=== PATIENT | female | born 1940 | race Caucasian/White ===

== ENCOUNTER → 2017-07-29 16:21 | Outpatient (CLI) | payer MEDICARE, OTHER, SELFPAY ==
--- NOTE | 2017-07-29 16:25 | CT_ITS ---
STUDY: CT ABDOMEN AND PELVIS WITHOUT CONTRAST REASON FOR EXAM: Female, 76 years old. Fistula the sacrum. Drainage. RADIATION DOSAGE (If Supplied By Facility): CTDIvol = ( 6.04 ) mGy, DLP = ( 274.82 ) mGycm TECHNIQUE: Transaxial images were obtained from the dome of the diaphragm to the symphysis pubis without oral contrast, and without intravenous contrast. Sagittal and coronal images were reconstructed. Individualized dose optimization techniques were used for this CT. COMPARISON: 12/16/2012. FINDINGS: This examination is extremely limited without oral and IV contrast. In the pelvis, soft tissue thickening is seen of the dorsal soft tissues over the left sacrum with 2 or 3 tiny foci of air. A focal fluid collection or abscess is not clearly seen but cannot entirely be excluded because of the absence of IV contrast. Likewise there is no definite fistula or sinus seen down to the skeletal structures but fistula/sinus cannot be excluded. In the pelvis there is extensive amorphous indeterminate soft tissue density in the presacral space down to the pelvic floor, again difficult to evaluate because of absence of contrast. Cannot exclude neoplasm but in fact the amount and configuration of presacral soft tissue is relatively stable and could simply be fibrosis. Liver is grossly negative. Gallbladder has been removed. There is pancreatic atrophy. Spleen is grossly normal. Both kidneys show several probable cysts bilaterally, grossly similar to prior exam. No hydronephrosis. No definite renal stones. Evaluation of the GI tract is very limited without oral contrast. Distended stomach. No grossly distended loops of small bowel but cannot exclude segments of bowel wall thickening, and in the pelvis it is impossible to differentiate individual bowel loops and cannot exclude bowel wall thickening. There is a stable appearance of the right lower quadrant ostomy. No free fluid. Skeletal structures show diffuse demineralization. No acute abnormalities and no definite focal destructive lesions, but this does not exclude osteomyelitis. CT/Abdomen/Pelvis without Cont IMPRESSION: Very limited evaluation without IV and oral contrast especially in the pelvis where it is to differentiate soft tissue structures and cannot exclude neoplasm versus fibrosis in the presacral space. No gross abscess or fluid collection. There are tiny foci of air are seen in the soft tissues behind the sacrum but no gross fistula or sinus tract can be seen. Cannot exclude segments of bowel wall thickening. Electronically Signed: iGgi Pruitt MD at 17:13 EDT , Service support ,
[2017-07-29 16:50] LABS: CREATININE FINGERSTICK 2.6 mg/dL (0.55-1.02)
== END ==
PROVIDERS: Family Provider Internal Medicine; PCP Internal Medicine; Visit Provider Internal Medicine
DX: M86.9 Osteomyelitis, unspecified (principal)
CPT/HCPCS: 74176

== ENCOUNTER → 2017-10-22 14:22 | Outpatient (CLI) | payer MEDICARE, OTHER, SELFPAY ==
--- NOTE | 2017-10-22 14:25 | US_ITS ---
STUDY: ULTRASOUND OF THE FEMALE PELVIS - COMPLETE REASON FOR EXAM: Female, 77 years old. Vaginal discharge, postmenopausal TECHNIQUE: Transabdominal and Transvaginal TECHNICAL QUALITY: Adequate. COMPARISON: None. FINDINGS: The uterus is anteverted and is in a midline position. The uterus measures 4.3 x 1.7 x 4.1 cm. Normal uterine cervix. The endometrium measures 6 mm in thickness, and is fluid distended. There is no demonstrated endometrial mass. There is no demonstrated myometrial mass. I.U.D. - The patient does not have an I.U.D. The right ovary is visualized. The right ovary measures 1.7 x 1.2 x 1.7 cm. There is no right ovarian cyst or ovarian mass. There is no visualized right adnexal mass or complex lesion. There is normal arterial and normal venous vascularity. The left ovary is visualized. The left ovary measures 2.0 x 0.9 x 1.4 cm. There is no left ovarian cyst or ovarian mass. There is no visualized left adnexal mass or complex lesion. There is normal arterial and normal venous vascularity. There is no fluid in the cul-de-sac. US/Pelvic (Non ) IMPRESSION: 1. Endometrial complex thickening with fluid distention considered abnormal postmenopausal female. Endometrial hyperplasia and neoplasm should be considered. Electronically Signed: Tim Mark MD at 10:40 EDT , Service support ,
--- NOTE | 2017-10-22 15:08 | US_ITS ---
STUDY: ULTRASOUND OF THE FEMALE PELVIS - COMPLETE REASON FOR EXAM: Female, 77 years old. Vaginal discharge, postmenopausal TECHNIQUE: Transabdominal and Transvaginal TECHNICAL QUALITY: Adequate. COMPARISON: None. FINDINGS: The uterus is anteverted and is in a midline position. The uterus measures 4.3 x 1.7 x 4.1 cm. Normal uterine cervix. The endometrium measures 6 mm in thickness, and is fluid distended. There is no demonstrated endometrial mass. There is no demonstrated myometrial mass. I.U.D. - The patient does not have an I.U.D. The right ovary is visualized. The right ovary measures 1.7 x 1.2 x 1.7 cm. There is no right ovarian cyst or ovarian mass. There is no visualized right adnexal mass or complex lesion. There is normal arterial and normal venous vascularity. The left ovary is visualized. The left ovary measures 2.0 x 0.9 x 1.4 cm. There is no left ovarian cyst or ovarian mass. There is no visualized left adnexal mass or complex lesion. There is normal arterial and normal venous vascularity. There is no fluid in the cul-de-sac. US/Transvaginal Non- IMPRESSION: 1. Endometrial complex thickening with fluid distention considered abnormal postmenopausal female. Endometrial hyperplasia and neoplasm should be considered. Electronically Signed: Tim Mark MD at 10:40 EDT , Service support ,
== END ==
PROVIDERS: Family Provider Internal Medicine; PCP Internal Medicine; Visit Provider Internal Medicine
DX: N89.8 Other specified noninflammatory disorders of vagina (principal)
CPT/HCPCS: 76830; 76856

== ENCOUNTER → 2017-10-29 09:58 | Outpatient (CLI) | payer MEDICARE, OTHER, SELFPAY | PROVIDERS: Family Provider Internal Medicine; PCP Internal Medicine; Visit Provider Internal Medicine | DX: Z12.31 Encounter for screening mammogram for malignant neoplasm of breast (principal); Z13.820 Encounter for screening for osteoporosis; Z78.0 Asymptomatic menopausal state | CPT/HCPCS: 77063; 77067; 77080; 77086 ==

== ENCOUNTER 2017-12-26 11:06 | Day surgery (SDC) | payer MEDICARE, OTHER, SELFPAY ==
--- NOTE | 2017-12-25 10:22 | PCM.HP.OB ---
- Problem List (1) Endometrial thickening on ultrasound Status: Acute History Date of Admission: 12/26/17 History of this : This is a 77 year-old, G [], P [], at weeks gestational age. Allergies No Known Allergies Allergy (Verified 09/23/15 12:03) Home Medications: Home Medications Apixaban [Eliquis] 2.5 mg PO BID 09/23/15 Atenolol [Tenormin] 50 mg PO DAILY 09/23/15 Cyanocobalamin [Vitamin B12] 500 mcg IM QMONTH 09/23/15 Levothyroxine [Synthroid] 125 mcg PO DAILY@0600 #30 tablet 09/28/15 Cholecalciferol (Vitamin D3) [Vitamin D] 50 mcg PO DAILY 12/19/17 Multivitamin-Min/Iron/FA/Vit K [Multi For Her Softgel] 1 each PO DAILY 12/19/17 Smoking Status: Current every day smoker Alcohol: None History Past Pregnancies: Past Pregnancies Delivery Date Name GA/Weeks Outcome Route Weight Infant Gender Labor Length Anesthesia Delivery Location Provider FOB Review of Systems Constitutional: Denies: Chills, Fever, Weight Change HEENT: Denies: Difficulty Hearing, Difficulty Swallowing, Nasal bleeding, Nasal Congestion, Sore Throat Cardiovascular: Denies: Chest Pain, Palpitations Respiratory: Denies: Shortness of Breath, Wheezing Gastrointestinal: Denies: Constipation, Diarrhea, Nausea, Vomiting Genitourinary: Denies: Dysuria, Frequency, Hematuria, Incontinence, Urgency Gynecological: Reports: Vaginal discharge, Vaginal itching. Denies: Breast symptoms, Excessively long or heavy periods, Sexual concerns, Vaginal bleeding Musculoskeletal: Denies: Joint Pain, Muscle pain Skin: Denies: Lesions, Skin Changes Neurological: Denies: Focal weakness, Numbness Psychiatric: Denies: Anxiety, Depression Endocrine: Denies: Heat/ Cold Intolerance Hematologic/ Lymphatic: Denies: Easy Bleeding Physical Exam General: Alert, Oriented x3, No apparent distress HEENT: Atraumatic, Normocephalic. 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 Negative for: Vulvar lesions Assessment/Plan All Active Problems Endometrial thickening on ultrasound (Acute) Weight loss (Acute) Nausea & vomiting (Acute) AKILA (acute kidney injury) (Acute) Dehydration (Acute) History of osteomyelitis (Resolved) Osteomyelitis (Resolved) This is a 77 year-old, post-menopausal. 1. Thickened endometrium of uterus D and C is planned. The preop preparation, the intraop procedures and the postop recovery reviewed. The risks of bleeding, infection and other organ damage including bladder, bowel and uterine perforation reviewed, accepted and consented. 2. DVT medical clearance and timeline of discontinuation of Eliquis 3. 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
--- NOTE | 2017-12-25 10:26 | HP.PCM_ITS ---
- Problem List (1) Endometrial thickening on ultrasound Status: Acute History Date of Admission: 12/26/17 History of this : This is a 77 year-old, G [], P [], at weeks gestational age. Allergies No Known Allergies Allergy (Verified 09/23/15 12:03) Home Medications: Home Medications Apixaban [Eliquis] 2.5 mg PO BID 09/23/15 Atenolol [Tenormin] 50 mg PO DAILY 09/23/15 Cyanocobalamin [Vitamin B12] 500 mcg IM QMONTH 09/23/15 Levothyroxine [Synthroid] 125 mcg PO DAILY@0600 #30 tablet 09/28/15 Cholecalciferol (Vitamin D3) [Vitamin D] 50 mcg PO DAILY 12/19/17 Multivitamin-Min/Iron/FA/Vit K [Multi For Her Softgel] 1 each PO DAILY 12/19/17 Smoking Status: Current every day smoker Alcohol: None History Past Pregnancies: Past Pregnancies Delivery Date Name GA/Weeks Outcome Route Weight Infant Gender Labor Length Anesthesia Delivery Location Provider FOB Review of Systems Constitutional: Denies: Chills, Fever, Weight Change HEENT: Denies: Difficulty Hearing, Difficulty Swallowing, Nasal bleeding, Nasal Congestion, Sore Throat Cardiovascular: Denies: Chest Pain, Palpitations Respiratory: Denies: Shortness of Breath, Wheezing Gastrointestinal: Denies: Constipation, Diarrhea, Nausea, Vomiting Genitourinary: Denies: Dysuria, Frequency, Hematuria, Incontinence, Urgency Gynecological: Reports: Vaginal discharge, Vaginal itching. Denies: Breast symptoms, Excessively long or heavy periods, Sexual concerns, Vaginal bleeding Musculoskeletal: Denies: Joint Pain, Muscle pain Skin: Denies: Lesions, Skin Changes Neurological: Denies: Focal weakness, Numbness Psychiatric: Denies: Anxiety, Depression Endocrine: Denies: Heat/ Cold Intolerance Hematologic/ Lymphatic: Denies: Easy Bleeding Physical Exam General: Alert, Oriented x3, No apparent distress HEENT: Atraumatic, Normocephalic. 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 Negative for: Vulvar lesions Assessment/Plan All Active Problems Endometrial thickening on ultrasound (Acute) Weight loss (Acute) Nausea & vomiting (Acute) AKILA (acute kidney injury) (Acute) Dehydration (Acute) History of osteomyelitis (Resolved) Osteomyelitis (Resolved) This is a 77 year-old, post-menopausal. 1. Thickened endometrium of uterus D and C is planned. The preop preparation, the intraop procedures and the postop recovery reviewed. The risks of bleeding, infection and other organ dam age including bladder, bowel and uterine perforation reviewed, accepted and consented. 2. DVT medical clearance and timeline of discontinuation of Eliquis 3. 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
[2017-12-26] VITALS (7 sets, daily range): BP systolic 123–166; BP diastolic 57–94; PULSE 56–60; RESP 14–16; TEMP 36.2–37.2; O2SAT 96–100; BMI 18.3
--- NOTE | 2017-12-26 | EMB_PTH ---
PATIENT: SHARMAINE FARLEY [place] [facility] [id number] AGE/SX: 77/F ROOM: RE12/26/[address]: Dr. Miriam Elaine MD : 1940 BED: DIS: 12/26/2017 SPEC #: [id number] RECD: 12/26/17 15:06 STATUS: SHEA MATIAS #: [id number] NEIL: 12/26/17 00:[address]: Miriam Elaine DEPT: SURGICAL PATHOLOGY RECD BY: Lino Rodriguez ENTERED: 12/26/17 15:07 SP TYPE: ENDOM BX/C JUAN DR: Dr. Viviana Murray MD Tissues: Endometrium, NOS Procedures: Surgery Specimen Level IV HEADER OPERATION: Hysteroscopy, dilation and curettage PRE-OP DIAGNOSIS: Thickened endometrium, postmenopausal bleeding TISSUE SUBMITTED: Endometrial curettings MICROSCOPIC DIAGNOSIS Endometrial curettings: Rare minute strips of benign endometrial epithelium. Scant fragments of benign ecto- and endocervical epithelium and mucous. See comment. SJ:paulina 12/27/17 COMMENT The specimen predominantly consists of mucoid tissue. Correlation with clinical findings and appropriate follow up are necessary. MICROSCOPIC DESCRIPTION Slides are reviewed. GROSS DESCRIPTION Received in fixative is one container labeled with the patient's name and designated endometrial curettings. The specimen consists of multiple irregular fragments of arroyo-pink mucoid tissue that in aggregate measure 2.5 x 2.5 x 0.2 cm. The entire specimen is submitted in one cassette. / KELLIE:paulina 12/26/17 TC:4 CPT: 52430
[2017-12-26] MEDS: Heparin Injection (Vial) 5,000 UNIT/ML VIAL 5000 UNIT SC (11:54)
[2017-12-26 12:10] LABS: International Normalized Ratio 1.1; Prothrombin Time (Protime)PT. 13.8 SECONDS (11.7-14.9)
[2017-12-26 12:11] LABS: Hematocrit 38.8 % (37-47); Hemoglobin 12.7 g/dl (12.0-15.0); Mean Corp Hgb Conc 32.7 g/gl (32-36); Mean Corpuscular Hgb 28.3 pg (27.0-32.0); Mean Corpuscular Volume 86.4 fL (81-99); Partial Thromboplast Time 28.6 Seconds (24.1-36.2); Platelet Count 320 K/mm3 (150-450); RBC Distribution Width CV 17.5 % (11.6-14.6); RBC Distribution Width SD 55.4 fl (35.1-43.9); Red Blood Count 4.49 M/mm3 (4.2-5.4); White Blood Count 7.3 K/mm3 (4.4-11.0)
[2017-12-26 12:28] LABS: Scan Indicated on CBC? Y/N NO
--- NOTE | 2017-12-26 12:56 | PCM.OPRPT ---
Problem List (1) Endometrial thickening on ultrasound Status: Acute Report of Operation Date of Procedure: 12/26/17 Pre-Operative Diagnosis: Postmenopausal bleeding and thickened endometrium Post-Operative Diagnosis: Same Surgery/Procedure Performed:: D and C, hysteroscopy Description of Surgical Findings:: Thin external genitalia noted. Uterus was retroflexed and sounded to approximately centimeter at 7 cm. Cervical eyes easily dilated to accommodate a 5 mm hysteroscope. Bilateral adnexa fully mobile and no masses. Type of Anesthesia:: Local, MAC Anesthesiologist: Chase Rivera Special Medications: 1% lidocaine, 10 cc locally to the cervix Specimen's removed: Endometrium Drains: None Estimated Blood Loss (mL): Minimal Fluids Replaced: Lactated Ringer Grafts/Implants Used: None - Complications None - Admit VTE Documentation VTE Present on Admission: No - Discontinued 1 week ago VTE Mechan Device Prophylaxis: SCD's VTE Pharm Prophylaxis ordered?: Yes
--- NOTE | 2017-12-26 12:59 | OP.PCM_ITS ---
Problem List (1) Endometrial thickening on ultrasound Status: Acute Report of Operation Date of Procedure: 12/26/17 Pre-Operative Diagnosis: Postmenopausal bleeding and thickened endometrium Post-Operative Diagnosis: Same Surgery/Procedure Performed:: D and C, hysteroscopy Description of Surgical Findings:: Thin external genitalia noted. Uterus was retroflexed and sounded to approximat leila centimeter at 7 cm. Cervical eyes easily dilated to accommodate a 5 mm hysteroscope. Bilateral adnexa fully mobile and no masses. Type of Anesthesia:: Local, MAC Anesthesiologist: Chase Rivera Special Medications: 1% lidocaine, 10 cc locally to the cervix Specimen's removed: Endometrium Drains: None Estimated Blood Loss (mL): Minimal Fluids Replaced: Lactated Ringer Grafts/Implants Used: None - Complications None - Admit VTE Documentation VTE Present on Admission: No - Discontinued 1 week ago VTE Mechan Device Prophylaxis: SCD's VTE Pharm Prophylaxis ordered?: Yes
--- NOTE | 2017-12-26 13:01 | OP.PCM_ITS ---
Problem List (1) Endometrial thickening on ultrasound Status: Acute Report of Operation Date of Procedure: 12/26/17 Pre-Operative Diagnosis: Postmenopausal bleeding and thickened endometrium Post-Operative Diagnosis: Same Surgery/Procedure Performed:: D and C, hysteroscopy Description of Surgical Findings:: Thin external genitalia noted. Uterus was retroflexed and sounded to approximat leila centimeter at 7 cm. Cervical eyes easily dilated to accommodate a 5 mm hysteroscope. Bilateral adnexa fully mobile and no masses. Type of Anesthesia:: Local, MAC Anesthesiologist: Chase Rivera Special Medications: 1% lidocaine, 10 cc locally to the cervix Specimen's removed: Endometrium Drains: None Estimated Blood Loss (mL): Minimal Fluids Replaced: Lactated Ringer Description of Procedure: Patient presented to the operating suite in the n.p.o. status since midnight the night before surgery. Patient was placed on the operating table and underwent a MAC anesthetic after appropriate monitors had been placed. Once back anesthetic was noted to be adequate she is placed in the dorsal lithotomy position via the Mak stirrups. She was prepped and draped in the normal sterile fashion. Weighted speculum to the vagina. The cervix was grasped with a single-tooth tenaculum at the anterior lip and the uterus was sounded to 7 cm in a retroflexed position. The 1% lidocaine was placed to the 4 quadrants of the cervix for a total of 10 cc infusion. The patient tolerated well. The cervical eyes was easily dilated to accommodate a 5 mm hysteroscope. The hysteroscope was placed into the endometrial cavity with notation of flimsy tissue throughout. Removal of the hysteroscope was replaced by sharp curettage of the entire endometrial cavity and collection of that tissue to send for pathological evaluation. The hysteroscope was replaced into the endometrial cavity after curettings and removal of all prior tissue was noted. All instruments were removed from the vagina. Investigation of the vagina revealed that the tissue is very thin and it appears that it is most then near the outer introital area at the posterior region were likely prior incision or may be the prior fistula occurred. This will be transmitted to the patient as well as to the patient's general surgeon a rectal surgeon who had asked for a update up following the surgery. Grafts/Implants Used: None - Complications None - Admit VTE Documentation VTE Present on Admission: No - Discontinued 1 week ago VTE Mechan Device Prophylaxis: SCD's VTE Pharm Prophylaxis ordered?: Yes
--- NOTE | 2017-12-26 13:05 | DCINST_ITS ---
Discharge Diet: No Restrictions, - - increase water intake to 100 ounces daily x 72 hours after surgery Discharge Activity: Return to Normal Activity, May Shower May shower in (days): 0 - TODAY May resume sexual activity in: 2 weeks Weight Bearing Status: Full weight bearing Lifting Restrictions: 10 pounds for one week Additional Activity Instructions:: ambulate often the week following surgery Call your doctor if your incision/area has: Sudden Increased Bleeding Call your doctor if you observe: Fever of 101 or Higher, Numbness or Tingling, Inability to urinate, Inability to have a bowel movement, Using more than one pad per hour Cleanse incision/area with: Soap & Water Additional Instructions: Use Tylenol for pain or cramping. Allergies/Adverse Reactions: Allergies No Known Allergies Allergy (Verified 09/23/15 12:03) Medications to take at Discharge RX: Apixaban [Eliquis] 2.5 mg PO BID 09/23/15 RX: Atenolol [Tenormin] 50 mg PO DAILY 09/23/15 RX: Cyanocobalamin [Vitamin B12] 500 mcg IM QMONTH 09/23/15 RX: Levothyroxine [Synthroid] 125 mcg PO DAILY@0600 #30 tablet 09/28/15 Cholecalciferol (Vitamin D3) [Vitamin D] 50 mcg PO DAILY 12/19/17 Multivitamin-Min/Iron/FA/Vit K [Multi For Her Softgel] 1 each PO DAILY 12/19/17 Primary Care Physician: Viviana Murray MD [Primary Care Provider] - Test Results: Test results from this visit will be discussed in further detail at your follow- up appointment, if applicable. Please Follow Up With: Miriam Elaine MD When: 1-2 weeks postop Please Follow Up With: Dr. Cooper When: 1 week
== END 2017-12-26 14:04 | disposition home or self-care (01) ==
LOC: SDC 11:09 → AC 11:10
PROVIDERS: Family Provider Internal Medicine; PCP Internal Medicine; Visit Provider Obstetrics & Gynecology
PROC: 0UDB8ZZ Extraction of Endometrium, Via Natural or Artificial Opening Endoscopic (ICD-10-PCS; CPT 58558; principal; 2017-12-26 12:20)
DX: N95.0 Postmenopausal bleeding (principal); N17.9 Acute kidney failure, unspecified; E86.0 Dehydration; I10 Essential (primary) hypertension; E07.9 Disorder of thyroid, unspecified; F17.200 Nicotine dependence, unspecified, uncomplicated; Z79.01 Long term (current) use of anticoagulants; Z79.899 Other long term (current) drug therapy; Z78.0 Asymptomatic menopausal state; Z86.2 Personal history of diseases of the blood and blood-forming organs and certain disorders involving the immune mechanism; Z86.718 Personal history of other venous thrombosis and embolism
CPT/HCPCS: 58558; 85027; 85610; 85730; 86850; 86900; 88305; J7120

== ENCOUNTER → 2018-02-10 14:03 | Outpatient (CLI) | payer MEDICARE, OTHER, SELFPAY ==
--- NOTE | 2018-02-10 14:13 | CT_ITS ---
STUDY: CT ABDOMEN AND PELVIS WITHOUT CONTRAST REASON FOR EXAM: Female, 77 years old. History Crohn's disease, abnormal vaginal drainage since surgery and may history of colostomy appendectomy cholecystectomy colon rectal surgery and hypertension. RADIATION DOSAGE (If Supplied By Facility): CTDIvol = ( 5.91 ) mGy, DLP = ( 239.69 ) mGycm TECHNIQUE: Transaxial images were obtained from the dome of the diaphragm to the symphysis pubis without oral contrast, and without intravenous contrast. Sagittal and coronal images were reconstructed. Individualized dose optimization techniques were used for this CT. COMPARISON: July 29, 2017 CT scan abdomen and pelvis. FINDINGS: There is a small irregular appearing nodule within the left lower lobe measuring 3.8 x 6.8 mm. image #7 appears nodular both on the transverse and coronal images. There is a calcification in the left lower lobe compatible granulomatous disease. This area was out of the field of view on the prior study. There is mild cardiac enlargement or coronary calcifications. There is a coarse appearance of the liver. There are surgical clips in the gallbladder fossa consistent with a prior cholecystectomy. Normal spleen. There is diffuse atrophy of the pancreas. Normal bilateral adrenal glands. There is an area of posterior right renal parenchymal thinning within the right kidney likely compatible with underlying chronic renal disease and/or prior infection. There is a exophytic cyst measuring 1.3 x 1.7 cm stable since prior study. There is no evidence of hydronephrosis. There is mild left renal atrophy. There are left side exophytic cyst stable since prior study measuring 1.2 and 1.2 cm. There is also a focus of cysts measuring 1.1 and 1.5 cm. There is a lower pole left renal cyst measuring 1.8 cm all stable since prior study. There is no evidence of hydronephrosis. Normal visualized stomach. There are mildly distended loops of small bowel. There is mild wall thickening. There is an anastomosis within the pelvis. There is a contrasted appearance of the cecum. This leads to a well contrasted colostomy. Minimally distended small bowel loops partially contrasted are seen in the pelvis. There is a mildly thick-walled appearance of the inferior aspect of the proximal aspect of the cecum at the ileocecal junction which may represent interface between contrasted and noncontrasted bowel. There is non-visualization of the appendix. There is diffuse atherosclerotic calcification of the abdominal aorta,. The proximal aorta measures 2.6 x 2.7 cm. Normal inferior vena cava. There are multiple subcentimeter retroperitoneal lymph nodes. There are few small subcentimeter mesenteric lymph nodes. There is visualized presacral stranding. There is some cortical irregularity demonstrated at the anterior aspect of S1 and S2 similar to the prior study allowing for cortical variation. The bladder is mildly distended. There is a visualized small amount of gas within the vagina just below the cervix. At the time of this study contrast barely reaches the distal small bowel. There is close proximity of the sigmoid stump. The tract is not definitively seen between the atrophied uterus and the rectum. There is a right lower colostomy. The soft tissues of the gluteal region are within without significant inflammatory change. There is anterolisthesis of L4-L5. There is a broad disc bulge with moderate neural foraminal narrowing moderate central stenosis. There is a broad disc bulge L5-S1 with minimal neural foramina narrowing is significant central stenosis. There is focal irregularity of the right side sacrum with a somewhat sclerotic border which is similar to the prior study. CT/Abdomen/Pelvis without Cont IMPRESSION: The time of this study the oral contrast is limited and reaches only the cecum which exits quickly from the colostomy. There is no evidence of fluid in the visualized uterine fundus. There is a small amount of gas which is present within the vagina at the level of the cervix which is nonspecific. Potentially a pelvic ultrasound would be helpful for further evaluation if appropriate. There is persistent presacral stranding which is concerning for either inflammatory change and/or neoplasm. Recommend correlation with radiation history. There is a persistent irregular appearance of the anterior cortex at the level of S1-S2 which potentially represent a focus of stable or chronic cortical irregularity. Potentially chronic osteomyelitis could have this appearance. Recommend consideration for follow-up MRI of the pelvis. This may be helpful to clarify the soft tissue density. Postoperative change in the rectosigmoid junction without evidence of significant surrounding inflammatory change. There is a mildly distended appearance of the small bowel and the left midline abdomen which is stable since prior study compatible with mild ileus. Stable bilateral kidneys. Status post cholecystectomy. Small nodule in the left lower lobe. Recommend further evaluation with CT scan of the chest for clarification. This may represent a postinflammatory nodule however neoplasm should be excluded. Electronically Signed: Marixa Walsh MD at 16:35 EST Tel , Service support ,
--- OUTSIDE RECORDS SUMMARY | 2018-03-25 11:19 | XMS RPT_ITS | Continuity of Care Document ---
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 hysteroscope was replaced into the endometrial cavity after curettings and removal o f all prior tissue was noted. All instruments were removed from the vagina. Investigation of the vagina revealed that the tissue is very thin and it appears that it is most then near the outer introital area at the posterior region were likely prior incision or may be the prior fistula occurred. This will be transmitted to the patient as well as to the patient's general surgeon a rectal surgeon who cano d asked for a update up following the surgery. Grafts/Implants Used: None - Complications None - Admit VTE Documentation VTE Present on Admission: No - Discontinued 1 week ago VTE Mechan Device Proph ylaxis: SCD's VTE Pharm Prophylaxis ordered?: Yes 12/26/17 1301 <Electronically signed by Miriam Dahl MD> Date Miriam Dahl MD CC: Miriam Dahl MD; Viviana Murray MD Signed 26-Dec-2017 Operative Report Result: Comments: See Note; NOTES: [facility] Medical Records Department [address] [place] [address] Operative Report 12/26/17 1256 MR#: [id number] Acct: [id number] Name: SJ FARLEY Arleth Rep #: [id number] : 1940 77 From: Miriam Dahl MD PCP: Viviana Murray MD Status: REG [facility] Location: [place] [address] Problem List (1) Endometrial thickening on ultrasound Status: Acute Report of Operation Date of Procedure: 12/26/17 Pre-Operative Diagnosis: Postmenopausal bleeding and thickened endometrium Post-Operative Diagnosis: Same Surgery/Procedure Performed:: D and C, hysteroscopy Descr iption of Surgical Findings:: Thin external genitalia noted. Uterus was retroflexed and sounded to approximately centimeter at 7 cm. Cervical eyes easily dilated to accommodate a 5 mm hysteroscope. Raz ateral adnexa fully mobile and no masses. Type of Anesthesia:: Local, MAC Anesthesiologist: Chase Rivera Special Medications: 1% lidocaine, 10 cc locally to the cervix Specimen's removed: Endometrium Drains: None Estimated Blood Loss (mL): Minimal Fluids Replaced: Lactated Ringer Grafts/Implants Used: None - Complications None - Admit VTE Documentation VTE Present on Admission: No - Discontinued 1 week ago VTE Mechan Device Prophylaxis: SCD's VTE Pharm Prophylaxis ordered?: Yes 12/26/17 1259 <Electronically signed by Miriam Dahl MD> Date Miriam Dahl MD CC: Miriam Dahl MD; Viviana Murray MD Signed 25-Dec-2017 History and Physical Exam Result: Comments: See Note; NOTES: [facility] Medical Records Department [address] [place] [address] History and Physical 12/25/17 1022 MR#: [id number] Acct: [id number] Name: Kiran FARLEY Rep #: [id number] : 1940 77 From: Miriam Dahl MD PCP: Viviana Murray MD Status: PRE [facility] Location: [facility] Problem List (1) Endometrial thickening on ultrasound Status: Acute History D ate of Admission: 12/26/17 History of this : This is a 77 year-old, G [], P [], at weeks gestational age. Allergies No Known Allergies Allergy (Verified 09/23/15 12:03) Home Medications: H ome Medications Apixaban [Eliquis] 2.5 mg PO BID 09/23/15 Atenolol [Tenormin] 50 mg PO DAILY 09/23/15 Cyanocobalamin [Vitamin B12] 500 mcg IM QMONTH 09/23/15 Levothyroxine [Synthroid] 125 mcg PO DAILY@ 0600 #30 tablet 09/28/15 Cholecalciferol (Vitamin D3) [Vitamin D] 50 mcg PO DAILY 12/19/17 Multivitamin-Min/Iron/FA/Vit K [Multi For Her Softgel] 1 each PO DAILY 12/19/17 Smoking Status: Current every day smoker Alcohol: None History Past Pregnancies: Past Pregnancies Delivery Name GA/Weeks Outcome Route WeiInfant GeLabor LenAnesthesiDelivery Provider FOB Date ght nder gth a Locati on Review of Systems Constitutional: Denies: Chills, Fever, Weight Change HEENT: Denies: Difficulty Hearing, Difficulty Swallowing, Nasal bleeding, Nasal Congestion, Sore Throat Cardiovascular: Denie s: Chest Pain, Palpitations Respiratory: Denies: Shortness of Breath, Wheezing Gastrointestinal: Denies: Constipation, Diarrhea, Nausea, Vomiting Genitourinary: Denies: Dysuria, Frequency, Hematuria, In continence, Urgency Gynecological: Reports: Vaginal discharge, Vaginal itching. Denies: Breast symptoms, Excessively long or heavy periods, Sexual concerns, Vaginal bleeding Musculoskeletal: Denies: Samantha nt Pain, Muscle pain Skin: Denies: Lesions, Skin Changes Neurological: Denies: Focal weakness, Numbness Psychiatric: Denies: Anxiety, Depression Endocrine: Denies: Heat/ Cold Intolerance Hematologic/ Ly mphatic: Denies: Easy Bleeding Physical Exam General: Alert, Oriented x3, No apparent distress HEENT: Atraumatic, Normocephalic. Negative for: Thyromegaly, Lymphadenopathy Lungs: Normal air movement Ab domen: Bowel Sounds Present Extremities:: No edema - atrophic and thin, skinned , No tenderness/swelling Neurological: Neuro grossly intact [employer]: Normal external genitalia. Negative for: Vulvar lesions Assessment/Plan All Active Problems Endometrial thickening on ultrasound (Acute) Weight loss (Acute) Nausea AND vomiting (Acute) AKILA (acute kidney injury) (Acute) Dehydration (Acute) History of osteomy elitis (Resolved) Osteomyelitis (Resolved) This is a 77 year-old, post-menopausal. 1. Thickened endometrium of uterus D and C is planned. The preop preparation, the intraop procedures and the postop recovery reviewed. The risks of bleeding, infection and other organ damage including bladder, bowel and uterine perforation reviewed, accepted and consented. 2. DVT medical clearance and timeline of di scontinuation of Eliquis 3. Tobacco use high risk and anti-coagulant following 2 DVT in history 12/25/17 1030 <Electronically signed by Mriiam Dahl MD> Date [facility] Signature: Date (if applicable) CC: Miriam Dahl MD; Viviana Murray MD Signed 31-Oct-2017 Vert Fx Assess/Lat Bone Den Result: Comments: See Note; NOTES: [facility] Imaging Services [address] [place] [address] Vert Fx Assess/Lat Bone Den MR#: [id number] Acct: [id number] Name: SHARMAINE FARLEY Rep #: [id number] : 1940 F 77 From: Jose Chan MD PCP: Viviana Murray MD Status: REG CLI Study: Vert Fx Assess/Lat Bone Den Date of Exam: 10/31/17 Exam# [id number] Ordering Dr: Viviana Murray MD STUDY: DUAL ENERGY X-RAY ABSORPTIOMETRY / DXA REASON FOR EXAM: Female, 77 years old. Early menopause. Loss of height. TECHNIQUE: Bone Mineral Density (BMD) measurements of lumbar spine and thoracic s pine were obtained. COMPARISON: Comparison is made with prior examination dated November 04, 2015. FINDINGS: There is minimal loss of height of the superior endplate of the T8 and T10 vertebrae. 0008 BD/Vert Fx Assess/Lat Bone Den IMPRESSION: Minimal loss of height of the superior endplate of the T8 and T10 verteb jasmin. Reference Information: The T-score is the number of standard deviations above or below the standard which is normal for young adults at their peak bone mineral density. The World Health Organization (WHO) interprets the T-scores as follows: Above -1 Normal bone density Between -1 and -2.5 Osteopenia Equal to / or below -2.5 Osteoporosis As a practical clini alesha guideline, osteopenia may be graded as follows: Mild -1 through -1.5 Moderate -1.6 through -2.0 Severe -2.1 through -2.4 The Z-score is the number of standard deviations above or below age-matched controls. A Z-score of less than -1.5 would be considered abnormal. References: 1. NIH Osteoporosis and Related Bone Diseases http://www.osteo.org 2. International Society for Clinical Densitometry htt p://www.iscd.org 3. National Osteoporosis Foundation http://www.nof.org Electronically Signed: Jose Chan MD at 12:22 EDT Tel [phone], Service support , Fax CC: Viviana Murray MD Nicker And Breaker: Signed 29-Oct-2017 Dexa Bone Density Study Result: Comments: See Note; NOTES: [facility] Imaging Services [address] [place] [address] Dexa Bone Density Study MR#: [id number] Acct: [id number] Name: SHARMAINE FRALEY Rep #: [id number] : 1940 F 77 From: Jose Chan MD PCP: Viviana Murray MD Status: REG CLI Study: Dexa Bone Density Study Date of Exam: 10/29/17 Exam# [id number] Ordering Dr: Viviana Murray MD STUDY: DUAL ENERGY X-RAY ABSORPTIOMETRY / DXA REASON FOR EXAM: Female, 77 years old. Early menopause. Loss of height. TECHNIQUE: Bone Mineral Density (BMD) measurements of lumbar spine and bilateral hips wer e obtained. COMPARISON: None. FINDINGS: Lumbar Spine (L1-L4): g/cm2 (0.643) / T-score (-4.3) / Z-score (-2.5) Findings are suggestive of osteoporosis with a high f racture risk. Left Femur Total: g/cm2 (0.602) / T-score (-3.2) / Z-score (-1.3) Left Femoral Neck: g/cm2 (0.647) / T-score (-2.8) / Z-score (-0.7) Right Femur Total: g/cm2 (0.525) / T-score (-3.8) / Z- score (-1.9) Right Femoral Neck: g/cm2 (0.579) / T-score (-3.3) / Z-score (-1.2) BD/Dexa Bone Density Study IMPRESSION: The patient is considere d osteoporotic as outlined below according to World Diego Organization (WHO) criteria with a high fracture risk. Reference Information: The T-score is the number of standard deviations above or below the standard which is normal for young adults at their peak bone mineral density. The World Health Organization (WHO) interprets the T-scores as follows: Above -1 No rmal bone density Between -1 and -2.5 Osteopenia Equal to / or below -2.5 Osteoporosis As a practical clinical guideline, osteopenia may be graded as follows: Mild - 1 through -1.5 Moderate -1.6 through -2.0 Severe -2.1 through -2.4 The Z-score is the number of standard deviations above or below age-matched controls. A Z-score of less than -1.5 would be considered abnormal. References: 1. NIH Osteop orosis and Related Bone Diseases http://www.osteo.org 2. International Society for Clinical Densitometry http://www.iscd.org 3. National Osteoporosis Foundation http://www.nof.org Electronically Signed : Jose Chan MD at 10:44 EDT Tel [phone], Service support , CC: Viviana Murray MD Nicker And Breaker: Signed 29-Oct-2017 SCREENING MAMM (CAD), BILAT Result: Comments: See Note; NOTES: [facility] Imaging Services [address] [place] [address] SCREENING MAMM (CAD), BILAT MR#: [id number] Acct: [id number] Name: SHARMAINE FARLEY Rep #: [id number] : 1940 F 77 From: Jose Chan MD PCP: Viviana Murray MD Status: REG CLI Study: SCREENING MAMM (CAD), BILAT Date of Exam: 10/29/17 Exam# [id number] Ordering Dr: Viviana Murray MD MAMMOGRAPHY - BILATERAL SCREENING REASON FOR EXAM: Female, 77 years old. Routine annual screening examination. PERTINENT HISTORY: Non-contributory. TECHNIQUE: Digital bilateral breast codi (3D mammo graphic acquisition) in the CC and MLO projections. 2-D mediolateral oblique (MLO) and craniocaudad (CC) views of both breasts were obtained. CAD: Full Field Digital Mammography with Computer Added Dete ction was performed. COMPARISON: Comparison is made with prior outside examination dated January 07, 2014. FINDINGS: Breast Composition: The breasts are heterogeneo usly dense, which may obscure small masses. There are no dominant masses or suspicious calcifications. No other significant abnormalities are identified. There has been no significant change since the prior study. BI/SCREENING MAMM (CAD), BILAT IMPRESSION: Stable bilateral screening mammogram. Yearly follow-up mammogram recommended. (A) ASSESSMENT CATEGORY: BIRADS Category 1: Negative. A letter regarding these results will be sent to the patient by the facility within 30 days. Approximately 10% of breas t cancers are not detected by mammography. A normal mammogram should not delay biopsy of a clinically suspicious abnormality. [id number] Electronically Signed: Jose Chan MD at 8:00 ED T Tel [phone], Service support , CC: Viviana Murray MD Nicker And Breaker: Signed 22-Oct-2017 Transvaginal Non- Result: Comments: See Note; NOTES: [facility] Imaging Services [address] [place] [address] Transvaginal Non- MR#: [id number] Acct: [id number] Name: SHARMAINE FARLEY Rep #: : 1940 F 77 From: Tim Mark MD PCP: Viviana Murray MD Status: REG CLI Study: Transvaginal Non- Date of Exam: 10/22/17 Exam# [id number] Ordering Dr: Viviana Murray MD STUDY: ULTRASOUND OF THE FEMALE PELVIS - COMPLETE REASON FOR EXAM: Female, 77 years old. Vaginal discharge, postmenopausal TECHNIQUE: Transabdominal and Transvaginal TECHNICAL QUALITY: Adequate. COMPARISON : None. FINDINGS: The uterus is anteverted and is in a midline position. The uterus measures 4.3 x 1.7 x 4.1 cm. Normal uterine cervix. The endometrium measures 6 mm in thickness, and is fluid distended. There is no demonstrated endometrial mass. There is no demonstrated myometrial mass. I.U.D. - The patient does not have an I.U.D. The right ovary is visualized. T he right ovary measures 1.7 x 1.2 x 1.7 cm. There is no right ovarian cyst or ovarian mass. There is no visualized right adnexal mass or complex lesion. There is normal arterial and normal venous vascul arity. The left ovary is visualized. The left ovary measures 2.0 x 0.9 x 1.4 cm. There is no left ovarian cyst or ovarian mass. There is no visualized left adnexal mass or complex lesion. There is norm al arterial and normal venous vascularity. There is no fluid in the cul-de-sac. US/Transvaginal Non- IMPRESSION: 1. Endometrial complex thickening with fluid distention considered abnormal postmenopausal female. Endometrial hyperplasia and neoplasm should be considered. Electronically Signed: Tim Mark MD at 10:40 EDT T el [phone], Service support , CC: Viviana Murray MD Nicker And Breaker: Signed 22-Oct-2017 Pelvic (Non ) Result: Comments: See Note; NOTES: [facility] Imaging Services [address] [place] [address] Pelvic (Non ) MR#: [id number] Acct: [id number] Name: SHARMAINE FARLEY Rep #: [id number] : 1940 F 77 From: Tim Mark MD PCP: Viviana Murray MD Status: REG CLI Study: Pelvic (Non ) Date of Exam: 10/22/17 Exam# [id number] Ordering Dr: Viviana Murray MD STUDY: ULTRASOU ND OF THE FEMALE PELVIS - COMPLETE REASON FOR EXAM: Female, 77 years old. Vaginal discharge, postmenopausal TECHNIQUE: Transabdominal and Transvaginal TECHNICAL QUALITY: Adequate. COMPARISON: None. FINDINGS: The uterus is anteverted and is in a midline position. The uterus measures 4.3 x 1.7 x 4.1 cm. Normal uterine cervix. The endometrium measures 6 mm in thic kness, and is fluid distended. There is no demonstrated endometrial mass. There is no demonstrated myometrial mass. I.U.D. - The patient does not have an I.U.D. The right ovary is visualized. The right ovary measures 1.7 x 1.2 x 1.7 cm. There is no right ovarian cyst or ovarian mass. There is no visualized right adnexal mass or complex lesion. There is normal arterial and normal venous vascularity. The left ovary is visualized. The left ovary measures 2.0 x 0.9 x 1.4 cm. There is no left ovarian cyst or ovarian mass. There is no visualized left adnexal mass or complex lesion. There is normal arter ial and normal venous vascularity. There is no fluid in the cul-de-sac. US/Pelvic (Non ) IMPRESSION: 1. Endometrial complex thickening with fluid distention considered abnormal postmenopausal female. Endometrial hyperplasia and neoplasm should be considered. Electronically Signed: Tim Mark MD at 10:40 EDT Tel , Service support , CC: Viviana Murray MD Nicker And Breaker: Signed 29-Jul-2017 Abdomen/Pelvis without Cont Result: Comments: See Note; NOTES: [facility] Imaging Services [facility] [place] [address] Abdomen/Pelvis without Cont MR#: [id number] Acct: [id number] Name: SHARMAINE FARLEY Rep #: [id number] : 1940 F 76 From: Gigi Pruitt MD PCP: Viviana Murray MD Status: REG CLI Study: Abdomen/Pelvis without Cont Date of Exam: 07/29/17 Exam# [id number] Ordering Dr: Viviana Murray MD S TUDY: CT ABDOMEN AND PELVIS WITHOUT CONTRAST REASON FOR EXAM: Female, 76 years old. Fistula the sacrum. Drainage. RADIATION DOSAGE (If Supplied By Facility): CTDIvol = ( 6.04 ) mGy, DLP = ( 274.82 ) m Gycm TECHNIQUE: Transaxial images were obtained from the dome of the diaphragm to the symphysis pubis without oral contrast, and without intravenous contrast. Sagittal and coronal images were reconstru cted. Individualized dose optimization techniques were used for this CT. COMPARISON: 12/16/2012. FINDINGS: This examination is extremely limited without oral and IV contrast. In the pelvis, soft tissue thickening is seen of the dorsal soft tissues over the left sacrum with 2 or 3 tiny foci of air. A focal fluid collection or abscess is not clearly seen but cannot entirely be excluded because of the absence of IV contrast. Likewise there is no definite fistula or sinus seen down to the skeletal structures but fistula/sinus cannot be excluded. In the pelvis there is extensive amorphous indeterminate soft tissue density in the presacral space down to the pelvic floor, again difficult to evaluate because of absence of contrast. Cannot exclude neoplasm but in fact the amount and configuration of presacral soft tissue is relatively stable and could simply be fibrosis. Liver is grossly negative. Gallbladder has been removed. There is pancreatic atrophy. Spleen is grossly normal. Both kidneys show several probable cysts bilaterally, grossly similar to prior exam. No hydronephrosis. No definite renal stones. Evaluation of the GI tract is very limited without ora l contrast. Distended stomach. No grossly distended loops of small bowel but cannot exclude segments of bowel wall thickening, and in the pelvis it is impossible to differentiate individual bowel loops and cannot exclude bowel wall thickening. There is a stable appearance of the right lower quadrant ostomy. No free fluid. Skeletal structures show diffuse demineralization. No acute abnormalities and no definite focal destructive lesions, but this does not exclude osteomyelitis. CT/Abdomen/Pelvis without Cont IMPRESSION: Very limited evaluation without IV and oral contrast espec ially in the pelvis where it is to differentiate soft tissue structures and cannot exclude neoplasm versus fibrosis in the presacral space. No gross abscess or fluid collection. There are tiny foci of a ir are seen in the soft tissues behind the sacrum but no gross fistula or sinus tract can be seen. Cannot exclude segments of bowel wall thickening. Electronically Signed: Gigi Pruitt MD at 17:13 EDT , Service support , CC: Viviana Murray MD Nicker And Breaker: Signed 12-Nov-2015 Pelvis (Routine) Result: Comments: See Note; NOTES: [facility] Imaging Services [address] [place] [address] Verdana 4d Pelvis (Routine) MR#: [id number] Acct: [id number] Name: SHARMAINE FARLEY Rep #: [id number] : 1940 F 75 From: Juan Wiley MD PCP: Kwan Burks Status: REG CLI Study: Pelvis (Routine) Date of Exam: 11/12/15 Exam# [id number] Ordering Dr: Kwan Burks STUDY: MR PELVIS WIT HOUT CONTRAST REASON FOR EXAM: Female, 75 years old. Right hip/buttock wound with drainage. Patient had wound with drainage in same area three years ago and it seemed to heal up. TECHNIQUE: Standardiz ed fat and water weighted pulse sequences were obtained in all 3 orthogonal planes. COMPARISON: CT pelvis December 16, 2012. FINDINGS: Normal urinary bladder. No dila elke small intestine. There is ostomy seen in the right lower quadrant. The distal colon is decompressed. There is focal wall thickening of the rectum with adjacent 5.1 x 1.0 cm fluid collection in the p resacral region. This extends via tract in the sciatic region to the subcutaneous soft tissues superficial to the sacrum and to the skin wound in the right buttock region. There is no pelvic free fluid . There is no pelvic lymphadenopathy. The uterus is atrophic. Normal visualized pelvic arteries. There is marrow edema T2 signal hyperintensity of the right sacrum and ilium adjacent to the sacroiliac joint. MRI/Pelvis (Routine) IMPRESSION: There is abnormality with fluid tracking from the presacral region adjacent to the rectum to the skin in the right buttock region consistent with colocutaneous fistula. Marrow edema of the sacrum and ilium raises suspicion for osteomyelitis. N.B. : The above information has been verbally conveyed by Luciana Wiley MD to Dr Viviana Murray, covering physician, on 11/12/2015 10:00:26 (ET). Electronically Signed: Juan Wiley MD at 9:05 EDT , Service support [phone], N.B. : The above information has been verbally conveyed by Juan Wiley MD to Dr Viviana Murray, covering physician, on 11/12/2015 10:00:26 (ET). CC: Kwan Burks Nicker And Breaker: Signed 25-Oct-2015 Dexa Bone Density/Append Skel Result: Comments: See Note; NOTES: [facility] Imaging Services [address] [place] [address] Verda 4d Dexa Bone Density/Append Skel MR#: [id number] Acct: [id number] Name: JUAN J FARLEYLanden Reinoso Rep #: [id number] : 1940 F 75 From: Jose Chan MD PCP: Kwan Burks Status: REG CLI Study: Dexa Bone Density/Append Skel Date of Exam: 10/25/15 Exam# [id number] Ordering Dr: Kwan Burks STUDY: DUAL ENERGY X-RAY ABSORPTIOMETRY / DXA REASON FOR EXAM: Female, 75 years old. Early menopause. Loss of height. TECHNIQUE: Bone Mineral Density (BMD) measurements of both forearms were obtained. COMPARISON: None. FINDINGS: Right Forearm: g/cm2 (0.595) / T-score (-3.3) / Z-score (-0.9) Left Forearm: g/cm2 (0.527) / T-score (-4.1) / Z-score (-1.6) HPBD/Dexa Bone Density/Append Skel IMPRESSION: The patient is considered osteoporotic as outlined below according to World Diego Organization (WHO) criteria with a high fracture risk. Reference Information: The T-score is the number of standard deviations above or below the standard which is normal for yo mark adults at their peak bone mineral density. The World Health Organization (WHO) interprets the T-scores as follows: Above -1 Normal bone density Between -1 and -2.5 Osteopenia Equal to / or below -2 .5 Osteoporosis As a practical clinical guideline, osteopenia may be graded as follows: Mild -1 through -1.5 Moderate -1.6 through -2.0 Severe -2.1 through - 2.4 The Z-score is the number of standard d eviations above or below age-matched controls. A Z-score of less than -1.5 would be considered abnormal. References: 1. NIH Osteoporosis and Related Bone Diseases http://www.osteo.org 2. International Society for Clinical Densitometry http://www.iscd.org 3. National Osteoporosis Foundation http://www.nof.org Electronically Signed: Jose Chan MD at 9:31 EDT Tel [phone], Service support [phone], CC: Kwan Burks Nicker And Breaker: Signed 21-May-2014 Kidney and Bladder Result: Comments: See Note; NOTES: [facility] Imaging Services [address] [place] [address] Ultrasound Report MR#: [id number] Acct: [id number] Name: SHARMAINE FARLEY Rep #: [id number] : 1940 F 73 From: Jose Chan MD PCP: Viviana Murray MD Status: [facility] CLI Study: Kidney and Bladder Date of Exam: 05/21/14 Exam# [id number] Ordering Dr: Viviana Murray MD STUDY: RENAL ULTRASOUND - COMPLETE REASON FOR EXAM: Female, 73 years old. Chronic renal disease. TECHNIQUE: Ultrasound evaluation of the kidneys was performed with real-time and static hurley-scale imaging . COMPARISON: None. FINDINGS: RIGHT KIDNEY: Normal location of the right kidney, which is normal in size. The right kidney measures 10.6 cm x 4.7 cm x 3.7 cm. There is a normal cortex of the right kidney. The renal cortex measures 1.0 cm. 3 cysts are seen. The largest measures 1.1 cm x 0.9 cm x 0.5 cm. There are no right renal calculi. There is no right h ydronephrosis. DISTAL RIGHT URETER: There is non-visualization of the distal right ureter. There is no demonstrated right ureterovesical junction calculus. There is a visualized right ureteral jet. LEFT KIDNEY: Normal location of the left kidney, which is normal in size. The left kidney measures 10.0 cm x 4.7 cm x 4.1 cm. There is a normal cortex of the left kidney. The renal cortex measures 1 .0 cm. Multiple cysts are seen. The largest measures 2 cm x 2 cm x 1.5 cm. There are no left renal calculi. Prominent left renal pelvis with no evidence of hydronephrosis. DISTAL LEFT URETER: There is non-visualization of the distal left ureter. There is no demonstrated left ureterovesical junction calculus. There is a visualized left ureteral jet. BLADDER: There is a normal wall thickness of the distended urinary bladder. There is no demonstrated mass within the urinary bladder. There are no demonstrated bladder calculi. IMPRESSION: Small bilateral renal cysts. Fullness of the left renal pelvis. 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 Status: Inactive Vital Signs Date Test Result Details :25 Pulse 72 /min Comments: Pattern: Regular Respiration Rate 16 /min Comments: Pattern: Unlabored BP Systolic 142 mm[Hg] Comments: Patient Position: Sitting; Cuff Location: Left Arm; Cuff Size: Standard BP Diastolic 62 mm[Hg] Comments: Patient Position: Sitting; Cuff Location: Left Arm; Cuff Size: Standard Weight 108.375 lb Height 65 in Body Mass Index Calculated 18.03 kg/m2 Body Surface Area Calculated 1.52 m2 :32 Temperature 97 f Comments: Method: Temporal Pulse 76 /min Comments: Pattern: Regular Respiration Rate 20 /min Comments: Pattern: Unlabored O2 SAT 98 % Comments: Room air BP Systolic 110 mm[Hg] Comments: Patient Position: Sitting; Cuff Location: Left Arm; Cuff Size: Standard BP Diastolic 70 mm[Hg] Comments: Patient Position: Sitting; Cuff Location: Left Arm; Cuff Size: Standard Weight 107 lb Height 65 in Body Mass Index Calculated 17.81 kg/m2 Body Surface Area Calculated 1.52 m2 :01 Temperature 97.9 f Pulse 68 /min Comments: Pattern: Regular Respiration Rate 17 /min Comments: Pattern: Unlabored O2 SAT 97 % Comments: Room air BP Systolic 122 mm[Hg] Comments: Patient Position: Sitting; Cuff Location: Left Arm; Cuff Size: Standard BP Diastolic 70 mm[Hg] Comments: Patient Position: Sitting; Cuff Location: Left Arm; Cuff Size: Standard Weight 103.05 lb Height 65 in Body Mass Index Calculated 17.15 kg/m2 Body Surface Area Calculated 1.49 m2 :01 Pulse 78 /min Comments: Pattern: Regular Respiration Rate 18 /min O2 SAT 99 % Comments: Room air BP Systolic 114 mm[Hg] Comments: Patient Position: Sitting BP Diastolic 78 mm[Hg] Comments: Patient Position: Sitting Weight 102 lb :05 Temperature 94.6 f Comments: Method: Oral Pulse 74 /min Comments: Pattern: Regular Respiration Rate 18 /min O2 SAT 97 % Comments: Room air BP Systolic 118 mm[Hg] Comments: Patient Position: Sitting BP Diastolic 78 mm[Hg] Comments: Patient Position: Sitting Weight 94.375 lb :24 Temperature 97.9 f Comments: Method: Temporal Pulse 90 /min Comments: Pattern: Regular Respiration Rate 20 /min Comments: Pattern: Unlabored O2 SAT 95 % Comments: Room air BP Systolic 120 mm[Hg] Comments: Patient Position: Sitting; Cuff Location: Left Arm; Cuff Size: Standard BP Diastolic 80 mm[Hg] Comments: Patient Position: Sitting; Cuff Location: Left Arm; Cuff Size: Standard Weight 94.0125 lb Height 65 in Body Mass Index Calculated 15.64 kg/m2 Body Surface Area Calculated 1.44 m2 :37 Temperature 97.9 f Comments: Method: Temporal Pulse 74 /min Comments: Pattern: Regular Respiration Rate 20 /min Comments: Pattern: Unlabored O2 SAT 99 % Comments: Room air BP Systolic 90 mm[Hg] Comments: Patient Position: Sitting; Cuff Location: Left Arm; Cuff Size: Standard BP Diastolic 60 mm[Hg] Comments: Patient Position: Sitting; Cuff Location: Left Arm; Cuff Size: Standard Weight 92 lb Height 65 in Body Mass Index Calculated 15.31 kg/m2 Body Surface Area Calculated 1.42 m2 :06 Temperature 97.4 f Comments: Method: Temporal Pulse 58 /min Comments: Pattern: Regular Respiration Rate 20 /min Comments: Pattern: Unlabored O2 SAT 97 % Comments: Room air BP Systolic 114 mm[Hg] Comments: Patient Position: Sitting; Cuff Location: Left Arm; Cuff Size: Standard BP Diastolic 78 mm[Hg] Comments: Patient Position: Sitting; Cuff Location: Left Arm; Cuff Size: Standard Weight 101 lb Height 65 in Body Mass Index Calculated 16.81 kg/m2 Body Surface Area Calculated 1.48 m2 :27 Weight 102.125 lb Height 65 in Body Mass Index Calculated 16.99 kg/m2 Body Surface Area Calculated 1.49 m2 :04 Temperature 97.6 f Comments: Method: Temporal Pulse 74 /min Comments: Pattern: Regular Respiration Rate 20 /min Comments: Pattern: Unlabored O2 SAT 98 % Comments: Room air BP Systolic 104 mm[Hg] Comments: Patient Position: Sitting; Cuff Location: Left Arm; Cuff Size: Standard BP Diastolic 70 mm[Hg] Comments: Patient Position: Sitting; Cuff Location: Left Arm; Cuff Size: Standard Weight 94 lb Height 65 in Body Mass Index Calculated 15.64 kg/m2 Body Surface Area Calculated 1.44 m2 :56 Temperature 97.6 f Comments: Method: Temporal Pulse 76 /min Comments: Pattern: Regular Respiration Rate 20 /min Comments: Pattern: Unlabored O2 SAT 20 % Comments: Room air BP Systolic 100 mm[Hg] Comments: Patient Position: Sitting; Cuff Location: Left Arm; Cuff Size: Standard BP Diastolic 68 mm[Hg] Comments: Patient Position: Sitting; Cuff Location: Left Arm; Cuff Size: Standard Weight 96.0375 lb Height 65 in Body Mass Index Calculated 15.98 kg/m2 Body Surface Area Calculated 1.45 m2 :49 Temperature 97.8 f Comments: Method: Temporal Pulse 82 /min Comments: Pattern: Regular Respiration Rate 20 /min Comments: Pattern: Unlabored O2 SAT 97 % Comments: Room air BP Systolic 100 mm[Hg] Comments: Patient Position: Sitting; Cuff Location: Left Arm; Cuff Size: Standard BP Diastolic 70 mm[Hg] Comments: Patient Position: Sitting; Cuff Location: Left Arm; Cuff Size: Standard Weight 97 lb Height 65 in Body Mass Index Calculated 16.14 kg/m2 Body Surface Area Calculated 1.45 m2 :09 Pulse 103 /min Comments: Pattern: Regular Respiration Rate 18 /min Comments: Pattern: Unlabored O2 SAT 94 % Comments: Room air BP Systolic 102 mm[Hg] Comments: Patient Position: Sitting; Cuff Location: Left Arm; Cuff Size: Standard BP Diastolic 60 mm[Hg] Comments: Patient Position: Sitting; Cuff Location: Left Arm; Cuff Size: Standard Weight 95.375 lb Height 65 in Body Mass Index Calculated 15.87 kg/m2 Body Surface Area Calculated 1.44 m2 :58 Temperature 97.2 f Comments: Method: Temporal Pulse 70 /min Comments: Pattern: Regular Respiration Rate 16 /min Comments: Pattern: Unlabored BP Systolic 120 mm[Hg] Comments: Patient Position: Sitting; Cuff Location: Left Arm; Cuff Size: Standard BP Diastolic 74 mm[Hg] Comments: Patient Position: Sitting; Cuff Location: Left Arm; Cuff Size: Standard Weight 103 lb Height 65 in Body Mass Index Calculated 17.14 kg/m2 Body Surface Area Calculated 1.49 m2 :52 Temperature 97.4 f Comments: Method: Tympanic Pulse 68 /min Comments: Pattern: Regular Respiration Rate 18 /min Comments: Pattern: Unlabored O2 SAT 98 % Comments: Room air BP Systolic 120 mm[Hg] Comments: Patient Position: Sitting; Cuff Location: Left Arm; Cuff Size: Standard BP Diastolic 62 mm[Hg] Comments: Patient Position: Sitting; Cuff Location: Left Arm; Cuff Size: Standard Weight 103 lb Height 65 in Body Mass Index Calculated 17.14 kg/m2 Body Surface Area Calculated 1.49 m2 :47 Temperature 98 f Comments: Method: Temporal Pulse 66 /min Comments: Pattern: Regular Respiration Rate 16 /min Comments: Pattern: Unlabored O2 SAT 98 % Comments: Room air BP Systolic 126 mm[Hg] Comments: Patient Position: Sitting; Cuff Location: Left Arm; Cuff Size: Standard BP Diastolic 74 mm[Hg] Comments: Patient Position: Sitting; Cuff Location: Left Arm; Cuff Size: Standard Weight 103 lb Height 65 in Body Mass Index Calculated 17.14 kg/m2 Body Surface Area Calculated 1.49 m2 :12 Temperature 97.6 f Comments: Method: Temporal Pulse 74 /min Comments: Pattern: Regular Respiration Rate 18 /min Comments: Pattern: Unlabored O2 SAT 98 % Comments: Room air BP Systolic 160 mm[Hg] Comments: Patient Position: Sitting; Cuff Location: Left Arm; Cuff Size: Standard BP Diastolic 90 mm[Hg] Comments: Patient Position: Sitting; Cuff Location: Left Arm; Cuff Size: Standard Weight 112.025 lb :29 Temperature 97.7 f Comments: Method: Temporal Pulse 70 /min Comments: Pattern: Regular Respiration Rate 18 /min Comments: Pattern: Unlabored O2 SAT 97 % Comments: Room air BP Systolic 132 mm[Hg] Comments: Patient Position: Sitting; Cuff Location: Left Arm; Cuff Size: Standard BP Diastolic 80 mm[Hg] Comments: Patient Position: Sitting; Cuff Location: Left Arm; Cuff Size: Standard Weight 113 lb Height 65 in Body Mass Index Calculated 18.8 kg/m2 Body Surface Area Calculated 1.55 m2 :14 Temperature 97.8 f Comments: Method: Temporal Pulse 74 /min Comments: Pattern: Regular Respiration Rate 20 /min Comments: Pattern: Unlabored O2 SAT 98 % Comments: Room air BP Systolic 116 mm[Hg] Comments: Patient Position: Sitting; Cuff Location: Left Arm; Cuff Size: Standard BP Diastolic 76 mm[Hg] Comments: Patient Position: Sitting; Cuff Location: Left Arm; Cuff Size: Standard Weight 119 lb Height 65 in Body Mass Index Calculated 19.8 kg/m2 Body Surface Area Calculated 1.59 m2 :51 Temperature 97.6 f Comments: Method: Temporal Pulse 64 /min Comments: Pattern: Regular Respiration Rate 18 /min Comments: Pattern: Unlabored O2 SAT 98 % Comments: Room air BP Systolic 116 mm[Hg] Comments: Patient Position: Sitting; Cuff Location: Left Arm; Cuff Size: Standard BP Diastolic 76 mm[Hg] Comments: Patient Position: Sitting; Cuff Location: Left Arm; Cuff Size: Standard Weight 111 lb Height 65 in Body Mass Index Calculated 18.47 kg/m2 Body Surface Area Calculated 1.54 m2 :10 Temperature 97 f Comments: Method: Temporal Pulse 64 /min Comments: Pattern: Regular Respiration Rate 18 /min Comments: Pattern: Unlabored O2 SAT 97 % Comments: Room air BP Systolic 120 mm[Hg] Comments: Patient Position: Sitting; Cuff Location: Left Arm; Cuff Size: Standard BP Diastolic 78 mm[Hg] Comments: Patient Position: Sitting; Cuff Location: Left Arm; Cuff Size: Standard Weight 110.05 lb Height 65 in Body Mass Index Calculated 18.31 kg/m2 Body Surface Area Calculated 1.53 m2 :11 Temperature 97.4 f Comments: Method: Temporal Pulse 84 /min Comments: Pattern: Regular Respiration Rate 20 /min Comments: Pattern: Unlabored O2 SAT 97 % Comments: Room air BP Systolic 120 mm[Hg] Comments: Patient Position: Sitting; Cuff Location: Left Arm; Cuff Size: Standard BP Diastolic 74 mm[Hg] Comments: Patient Position: Sitting; Cuff Location: Left Arm; Cuff Size: Standard Weight 109 lb Height 65 in Body Mass Index Calculated 18.14 kg/m2 Body Surface Area Calculated 1.53 m2 :09 Temperature 98.3 f Comments: Method: Temporal Pulse 64 /min Comments: Pattern: Regular Respiration Rate 17 /min Comments: Pattern: Unlabored O2 SAT 97 % Comments: Room air BP Systolic 118 mm[Hg] Comments: Patient Position: Sitting; Cuff Location: Left Arm; Cuff Size: Standard BP Diastolic 70 mm[Hg] Comments: Patient Position: Sitting; Cuff Location: Left Arm; Cuff Size: Standard Weight 108 lb Height 65 in Body Mass Index Calculated 17.97 kg/m2 Body Surface Area Calculated 1.52 m2 :18 Temperature 97.7 f Comments: Method: Oral Pulse 76 /min Comments: Pattern: Regular Respiration Rate 18 /min Comments: Pattern: Unlabored O2 SAT 91 % Comments: Room air BP Systolic 138 mm[Hg] Comments: Patient Position: Sitting; Cuff Location: Left Arm; Cuff Size: Standard BP Diastolic 78 mm[Hg] Comments: Patient Position: Sitting; Cuff Location: Left Arm; Cuff Size: Standard Weight 102 lb Height 65 in Body Mass Index Calculated 16.97 kg/m2 Body Surface Area Calculated 1.49 m2 :12 Respiration Rate 16 /min Comments: Pattern: Unlabored BP Systolic 120 mm[Hg] Comments: Patient Position: Sitting; Cuff Location: Left Arm; Cuff Size: Standard BP Diastolic 76 mm[Hg] Comments: Patient Position: Sitting; Cuff Location: Left Arm; Cuff Size: Standard Weight 102 lb Height 65 in Body Mass Index Calculated 16.97 kg/m2 Body Surface Area Calculated 1.49 m2 :57 Temperature 98 f Comments: Method: Oral Pulse 68 /min Comments: Pattern: Regular Respiration Rate 20 /min Comments: Pattern: Unlabored BP Systolic 120 mm[Hg] Comments: Patient Position: Sitting; Cuff Location: Left Arm; Cuff Size: Standard BP Diastolic 70 mm[Hg] Comments: Patient Position: Sitting; Cuff Location: Left Arm; Cuff Size: Standard Weight 102 lb Height 65 in Body Mass Index Calculated 16.97 kg/m2 Body Surface Area Calculated 1.49 m2 :35 Temperature 97.6 f Comments: Method: Oral Pulse 70 /min Comments: Pattern: Regular Respiration Rate 18 /min Comments: Pattern: Unlabored BP Systolic 140 mm[Hg] Comments: Patient Position: Sitting; Cuff Location: Left Arm; Cuff Size: Standard BP Diastolic 90 mm[Hg] Comments: Patient Position: Sitting; Cuff Location: Left Arm; Cuff Size: Standard Weight 105 lb Height 65 in Body Mass Index Calculated 17.47 kg/m2 Body Surface Area Calculated 1.5 m2 :12 Temperature 97.6 f Comments: Method: Temporal Pulse 52 /min Comments: Pattern: Regular Respiration Rate 16 /min Comments: Pattern: Unlabored O2 SAT 98 % Comments: Room air BP Systolic 142 mm[Hg] Comments: Patient Position: Sitting; Cuff Location: Left Arm; Cuff Size: Standard BP Diastolic 72 mm[Hg] Comments: Patient Position: Sitting; Cuff Location: Left Arm; Cuff Size: Standard Weight 103.8 lb :31 Temperature 98.5 f Comments: Method: Temporal Pulse 74 /min Comments: Pattern: Regular Respiration Rate 16 /min Comments: Pattern: Unlabored O2 SAT 97 % Comments: Room air BP Systolic 122 mm[Hg] Comments: Patient Position: Sitting; Cuff Location: Left Arm; Cuff Size: Standard BP Diastolic 74 mm[Hg] Comments: Patient Position: Sitting; Cuff Location: Left Arm; Cuff Size: Standard Weight 100.8 lb :24 Temperature 97.6 f Comments: Method: Oral Pulse 60 /min Comments: Pattern: Regular Respiration Rate 20 /min Comments: Pattern: Unlabored BP Systolic 108 mm[Hg] Comments: Patient Position: Sitting; Cuff Location: Left Arm; Cuff Size: Standard BP Diastolic 70 mm[Hg] Comments: Patient Position: Sitting; Cuff Location: Left Arm; Cuff Size: Standard Weight 100.025 lb :34 Temperature 97.8 f Comments: Method: Oral Pulse 68 /min Comments: Pattern: Regular Respiration Rate 18 /min Comments: Pattern: Unlabored BP Systolic 152 mm[Hg] Comments: Patient Position: Sitting; Cuff Location: Left Arm; Cuff Size: Standard BP Diastolic 78 mm[Hg] Comments: Patient Position: Sitting; Cuff Location: Left Arm; Cuff Size: Standard Weight 104.5 lb Height 65 in Body Mass Index Calculated 17.39 kg/m2 Body Surface Area Calculated 1.5 m2 :38 Temperature 97.3 f Comments: Method: Temporal Pulse 64 /min Comments: Pattern: Regular Respiration Rate 16 /min Comments: Pattern: Unlabored BP Systolic 122 mm[Hg] Comments: Patient Position: Sitting; Cuff Location: Left Arm; Cuff Size: Standard BP Diastolic 74 mm[Hg] Comments: Patient Position: Sitting; Cuff Location: Left Arm; Cuff Size: Standard Weight 107 lb Height 65 in Body Mass Index Calculated 17.81 kg/m2 Body Surface Area Calculated 1.52 m2 :32 Temperature 97.8 f Comments: Method: Oral Pulse 70 /min Comments: Pattern: Regular Respiration Rate 18 /min Comments: Pattern: Unlabored BP Systolic 138 mm[Hg] Comments: Patient Position: Sitting; Cuff Location: Left Arm; Cuff Size: Standard BP Diastolic 74 mm[Hg] Comments: Patient Position: Sitting; Cuff Location: Left Arm; Cuff Size: Standard Weight 108 lb Height 65 in Body Mass Index Calculated 17.97 kg/m2 Body Surface Area Calculated 1.52 m2 :44 Temperature 98 f Comments: Method: Oral Pulse 70 /min Comments: Pattern: Regular Respiration Rate 20 /min Comments: Pattern: Unlabored BP Systolic 116 mm[Hg] Comments: Patient Position: Sitting; Cuff Location: Left Arm; Cuff Size: Standard BP Diastolic 70 mm[Hg] Comments: Patient Position: Sitting; Cuff Location: Left Arm; Cuff Size: Standard Weight 105.05 lb Height 65 in Body Mass Index Calculated 17.48 kg/m2 Body Surface Area Calculated 1.5 m2 :02 Temperature 98.9 f Comments: Method: Oral Pulse 64 /min Comments: Pattern: Regular Respiration Rate 20 /min Comments: Pattern: Unlabored BP Systolic 110 mm[Hg] Comments: Patient Position: Sitting; Cuff Location: Left Arm; Cuff Size: Standard BP Diastolic 70 mm[Hg] Comments: Patient Position: Sitting; Cuff Location: Left Arm; Cuff Size: Standard Weight 105.05 lb Height 65 in Body Mass Index Calculated 17.48 kg/m2 Body Surface Area Calculated 1.5 m2 :51 Temperature 97.6 f Comments: Method: Oral Pulse 64 /min Comments: Pattern: Regular Respiration Rate 18 /min Comments: Pattern: Unlabored BP Systolic 118 mm[Hg] Comments: Patient Position: Sitting; Cuff Location: Left Arm; Cuff Size: Standard BP Diastolic 68 mm[Hg] Comments: Patient Position: Sitting; Cuff Location: Left Arm; Cuff Size: Standard Weight 117 lb Height 65 in Body Mass Index Calculated 19.47 kg/m2 Body Surface Area Calculated 1.58 m2 :42 Temperature 97.9 f Comments: Method: Oral Pulse 70 /min Comments: Pattern: Regular Respiration Rate 18 /min Comments: Pattern: Unlabored BP Systolic 114 mm[Hg] Comments: Patient Position: Sitting; Cuff Location: Left Arm; Cuff Size: Standard BP Diastolic 64 mm[Hg] Comments: Patient Position: Sitting; Cuff Location: Left Arm; Cuff Size: Standard Weight 117 lb Height 65 in Body Mass Index Calculated 19.47 kg/m2 Body Surface Area Calculated 1.58 m2 :41 Temperature 98.6 f Comments: Method: Oral Pulse 68 /min Comments: Pattern: Regular Respiration Rate 16 /min Comments: Pattern: Unlabored BP Systolic 124 mm[Hg] Comments: Patient Position: Sitting; Cuff Location: Left Arm; Cuff Size: Standard BP Diastolic 78 mm[Hg] Comments: Patient Position: Sitting; Cuff Location: Left Arm; Cuff Size: Standard Weight 117.5 lb Height 65 in Body Mass Index Calculated 19.55 kg/m2 Body Surface Area Calculated 1.58 m2 :41 Comments: lost 5 lbs since last OV 09/29/09. Pulse 64 /min Comments: Pattern: Regular Respiration Rate 16 /min Comments: Pattern: Unlabored BP Systolic 110 mm[Hg] Comments: Patient Position: Sitting; Cuff Location: Left Arm; Cuff Size: Standard BP Diastolic 62 mm[Hg] Comments: Patient Position: Sitting; Cuff Location: Left Arm; Cuff Size: Standard Weight 117.1 lb Height 65 in Body Mass Index Calculated 19.49 kg/m2 Body Surface Area Calculated 1.58 m2 :48 Pulse 72 /min Comments: Pattern: Regular Respiration Rate 18 /min Comments: Pattern: Unlabored BP Systolic 116 mm[Hg] Comments: Patient Position: Sitting; Cuff Location: Left Arm; Cuff Size: Standard BP Diastolic 80 mm[Hg] Comments: Patient Position: Sitting; Cuff Location: Left Arm; Cuff Size: Standard Weight 122 lb :06 Pulse 74 /min Comments: Pattern: Regular Respiration Rate 18 /min Comments: Pattern: Unlabored BP Systolic 118 mm[Hg] Comments: Patient Position: Sitting; Cuff Location: Left Arm; Cuff Size: Standard BP Diastolic 78 mm[Hg] Comments: Patient Position: Sitting; Cuff Location: Left Arm; Cuff Size: Standard Weight 123.025 lb :03 Pulse 76 /min Comments: Pattern: Regular Respiration Rate 18 /min Comments: Pattern: Unlabored BP Systolic 120 mm[Hg] Comments: Patient Position: Sitting; Cuff Location: Left Arm; Cuff Size: Standard BP Diastolic 78 mm[Hg] Comments: Patient Position: Sitting; Cuff Location: Left Arm; Cuff Size: Standard Weight 113.05 lb Height 0 in Head Circumference 0.00 cm :51 Pulse 74 /min Comments: Pattern: Regular Respiration Rate 16 /min Comments: Pattern: Unlabored BP Systolic 116 mm[Hg] Comments: Patient Position: Sitting; Cuff Location: Left Arm; Cuff Size: Standard BP Diastolic 78 mm[Hg] Comments: Patient Position: Sitting; Cuff Location: Left Arm; Cuff Size: Standard Weight 118 lb Height 0 in Head Circumference 0.00 cm :05 Pulse 68 /min Comments: Pattern: Regular Respiration Rate 16 /min Comments: Pattern: Unlabored BP Systolic 126 mm[Hg] Comments: Patient Position: Sitting; Cuff Location: Left Arm; Cuff Size: Standard BP Diastolic 74 mm[Hg] Comments: Patient Position: Sitting; Cuff Location: Left Arm; Cuff Size: Standard Weight 120 lb Height 0 in Head Circumference 0.00 cm :04 Temperature 97.7 f Comments: Method: Oral Pulse 76 /min Comments: Pattern: Regular Respiration Rate 18 /min Comments: Pattern: Unlabored BP Systolic 112 mm[Hg] Comments: Patient Position: Sitting; Cuff Location: Left Arm; Cuff Size: Standard BP Diastolic 72 mm[Hg] Comments: Patient Position: Sitting; Cuff Location: Left Arm; Cuff Size: Standard Weight 116.1875 lb Height 0 in Head Circumference 0.00 cm :04 Temperature 95.3 f Comments: Method: Undefined Pulse 72 /min Comments: Pattern: Regular Respiration Rate 18 /min Comments: Pattern: Undefined BP Systolic 126 mm[Hg] Comments: Patient Position: Sitting; Cuff Location: Right Arm; Cuff Size: Standard BP Diastolic 78 mm[Hg] Comments: Patient Position: Sitting; Cuff Location: Right Arm; Cuff Size: Standard Weight 0 lb Height 0 in Head Circumference 0.00 cm :22 Temperature 98.2 f Comments: Method: Oral Pulse 64 /min Comments: Pattern: Regular Respiration Rate 18 /min Comments: Pattern: Unlabored BP Systolic 110 mm[Hg] Comments: Patient Position: Sitting; Cuff Location: Left Arm; Cuff Size: Standard BP Diastolic 74 mm[Hg] Comments: Patient Position: Sitting; Cuff Location: Left Arm; Cuff Size: Standard Weight 111.0188 lb Height 0 in Head Circumference 0.00 cm :47 Temperature 98.2 f Comments: Method: Oral Pulse 70 /min Comments: Pattern: Regular Respiration Rate 18 /min Comments: Pattern: Unlabored BP Systolic 120 mm[Hg] Comments: Patient Position: Sitting; Cuff Location: Left Arm; Cuff Size: Standard BP Diastolic 78 mm[Hg] Comments: Patient Position: Sitting; Cuff Location: Left Arm; Cuff Size: Standard Weight 104.0563 lb Height 0 in Head Circumference 0.00 cm :54 Temperature 97.4 f Comments: Method: Oral Pulse 74 /min Comments: Pattern: Regular Respiration Rate 18 /min Comments: Pattern: Unlabored BP Systolic 116 mm[Hg] Comments: Patient Position: Sitting; Cuff Location: Left Arm; Cuff Size: Standard BP Diastolic 78 mm[Hg] Comments: Patient Position: Sitting; Cuff Location: Left Arm; Cuff Size: Standard Weight 0 lb Height 0 in Head Circumference 0.00 cm :10 Temperature 97.6 f Comments: Method: Oral Pulse 64 /min Comments: Pattern: Regular Respiration Rate 18 /min Comments: Pattern: Unlabored BP Systolic 122 mm[Hg] Comments: Patient Position: Sitting; Cuff Location: Left Arm; Cuff Size: Standard BP Diastolic 76 mm[Hg] Comments: Patient Position: Sitting; Cuff Location: Left Arm; Cuff Size: Standard Weight 102.0188 lb Height 0 in Head Circumference 0.00 cm Results Date Description Value Details [id number] CBC-Complete Blood Cnt No Diff Comments: [facility] [id number] [place], [address] MPV 10.0 fL (Normal) Range: 6.2-12.0 PLT 320 K/mm3 (Normal) Range: 150-450 RDW SD 55.4 fL (Abnormal) Range: 35.1-43.9 RDW CV 17.5 % (Abnormal) Range: 11.6-14.6 MCHC 32.7 {g/gl} (Normal) Range: 32-36 MCH 28.3 pg (Normal) Range: 27.0-32.0 MCV 86.4 fL (Normal) Range: 81-99 HCT 38.8 % (Normal) Range: 37-47 HGB 12.7 g/dL (Normal) Range: 12.0-15.0 RBC 4.49 {M/mm3} (Normal) Range: 4.2-5.4 WBC 7.3 K/mm3 (Normal) Range: 4.4-11.0 :55 Partial Thromboplast Time Comments: [facility] [id number] [place], [place], [id number] PTT 28.6 s (Normal) Range: 24.1-36.2 [id number] Prothrombin Time w/INR Comments: [facility] [id number] [place], [place], [id number] INR 1.1 (Normal) PROTIME 13.8 s (Normal) Range: 11.7-14.9 : ENDOMETRIAL See Note (Normal) Comments: [facility] [id number] [place], [place], [id number] 00 BX/CURETTINGS Comments: Patient: SHARMAINE FARLEY : 1940 (77/F) Acct Num: [id number] Phys: [place] CARTWRIGHT,Miriam Unit Num: [id number] Loc: [facility] [id number] Specimen: [id number] Received: 12/26/17 - 1506 Spec Type: ENDO M BX/C TISSUES 1 TISSUES: Endometrium, NOS COMMENT The specimen predominantly consists of mucoid tissue. Correlation with clinicalfindings and appropriate follow up are joana rhodes. GROSS DESCRIPTION Received in fixative is one container labeled with the patient's name and designated endometrial curettings. The specimen consists of multiple irregular fragments of arroyo-pi nk mucoid tissue that in aggregate measure 2.5 x 2.5 x 0.2 cm. The entire specimen is submitted in one cassette. / Chelsea 12/26/17 TC:4 CPT: 43918 HEADER OPERATION: Hysteroscopy, dilation and cu rettage PRE-OP DIAGNOSIS: Thickened endometrium, postmenopausal bleeding TISSUE SUBMITTED: Endometrial curettings MICROSCOPIC DESCRIPTION Slides are reviewed. MICROSCOPIC DIAGNOSIS Endometrial curettings: Rare minute strips of benign endometrial epithelium. Scant fragments of benign ecto- and endocervical epithelium and mucous. See comment. Chelsea 12/27/17 Signed __ Eliceo Lara 12/27/17 <signature on file> 67-Jud-091055:00 Thin Prep Pap (62224) Comments: No. of containers..01 ThinPrep VialPERFORMED BY: =G Jingit[address] [id number] BY: WB Jingit120 [address] PlazaTeachersMeet.comrleston [place] [id number] linical Information: [id number] Age Gdln ACOG Testing AGE4 (Normal) Comments: <21 or >65 or no age provided 78-Hrm-655354:00 Genital Culture, Routine Comments: PERFORMED BY: [facility] [id number] Information: SRC:VA Result 1 RGF (Normal) Comments: Routine genital nina. Genital Culture, Routine Final report (Normal) 65-Nrc-191395:00 Pap IG (Image Guided) Comments: No. of containers..01 ThinPrep VialPERFORMED BY: =G Jingit120 [facility] CenterTeachersMeet.comrleston [place] [id number] BY: Rezdy120 [facility] [place] [id number] Note: PAPSMR (Normal) Comments: The Pap smear is a screening test designed to aid in the detection ofpremalignant and malignant conditions of the uterine cervix. It is not adiagnostic procedure and should not be used as the sole mean s of detectingcervical cancer. Both false-positive and false-negative reports do occur. .This liquid based ThinPrep(R) pap test w as screened with theuse of an image guided system. See Note . (Normal) DIAGNOSIS: SPRCS (Normal) Comments: NEGATIVE FOR INTRAEPITHELIAL LESION AND MALIGNANCY.CELLULAR CHANGES ASSOCIATED WITH ATROPHY ARE PRESENT.CELLULAR CHANGES ASSOCIATED WITH INFLAMMATION ARE PRESENT.Satisfactory for evaluation. Endocervic al component may not bedistinguished in cases of atrophy.Areas of partially obscuring inflammtory exudate are present.Z12.4Hazel Ding Director Maternal Child (ASCP) 85-Viu-155300:35 CBC WITH MANUAL DIFF (60246) Comments: do before November office visit; PATIENT NOT FASTINGPERFORMED BY: [facility] Eltjsy1669 [facility] [id number] Immature Grans (Abs) 0.0 {x10E3/uL} (Normal) Range: 0.0-0.1 Immature Granulocytes 0 % (Normal) Baso (Absolute) 0.1 {x10E3/uL} (Normal) Range: 0.0-0.2 Eos (Absolute) 0.6 {x10E3/uL} (Abnormal) Range: 0.0-0.4 Monocytes(Absolute) 0.4 {x10E3/uL} (Normal) Range: 0.1-0.9 Lymphs (Absolute) 2.5 {x10E3/uL} (Normal) Range: 0.7-3.1 Neutrophils (Absolute) 4.1 {x10E3/uL} (Normal) Range: 1.4-7.0 Basos 1 % (Normal) Eos 8 % (Normal) Monocytes 6 % (Normal) Lymphs 32 % (Normal) Neutrophils 53 % (Normal) Platelets 279 {x10E3/uL} (Normal) Range: 150-379 RDW 15.1 % (Normal) Range: 12.3-15.4 MCHC 32.2 g/dL (Normal) Range: 31.5-35.7 MCH 27.8 pg (Normal) Range: 26.6-33.0 MCV 86 fL (Normal) Range: 79-97 Hematocrit 38.2 % (Normal) Range: 34.0-46.6 Hemoglobin 12.3 g/dL (Normal) Range: 11.1-15.9 RBC 4.42 {x10E6/uL} (Normal) Range: 3.77-5.28 WBC 7.7 {x10E3/uL} (Normal) Range: 3.4-10.8 49-Jcr-284134:35 CALCIFIDIOL (12499) VIT D 25 Comments: do before November office visit; PATIENT NOT FASTINGPERFORMED BY: LabCoChilton [facility] HospitalHeqlxg3777 [facility] [id number] Vitamin D, 25-Hydroxy 18.4 ng/mL (Abnormal) Range: 30.0-100.0 Comments: Vitamin D deficiency has been defined by the [place] of[place]icine and an Endocrine Society practice guideline as alevel of serum 25-OH vitamin D less than 20 ng/mL (1,2).The Endocrine Society went on to further define vitamin Dinsufficiency as a level between 21 and 29 ng/mL (2).1. IOM ([place] of Medicine). 2010. Dietary reference intakes for calcium and D. [place]: The National Academies Press.2. Justin MF, Jazmyn FOSTER, Aniya CANO, et al. Evaluation, treatment, and prevention of vitamin D deficiency: an Endocrine Society clinical practice guideline. JCEM. 2010; 96(7):1911-30. 88-Git-675742:35 Renal function Panel (16981) Comments: do before November office visit; PATIENT NOT FASTINGPERFORMED BY: [employer] [place] [id number]; creat better fu 9-4 DB Albumin 4.0 g/dL (Normal) Range: 3.5-4.8 Phosphorus 4.2 mg/dL (Normal) Range: 2.5-4.5 Calcium 9.6 mg/dL (Normal) Range: 8.7-10.3 Carbon Dioxide, Total 23 mmol/L (Normal) Range: 20-29 Chloride 103 mmol/L (Normal) Range: 96-106 Potassium 5.0 mmol/L (Normal) Range: 3.5-5.2 Sodium 142 mmol/L (Normal) Range: 134-144 BUN/Creatinine Ratio 22 (Normal) Range: 12-28 eGFR If Africn Am 34 mL/min/1.73 (Abnormal) eGFR If NonAfricn Am 29 mL/min/1.73 (Abnormal) Creatinine 1.66 mg/dL (Abnormal) Range: 0.57-1.00 BUN 37 mg/dL (Abnormal) Range: 8-27 Glucose 80 mg/dL (Normal) Range: 65-99 5-Qhn-388768:06 Renal function Panel (24358) Comments: PATIENT NOT FASTINGPERFORMED BY: [employer] [place] [id number] Albumin 3.8 g/dL (Normal) Range: 3.5-4.8 Phosphorus 4.1 mg/dL (Normal) Range: 2.5-4.5 Calcium 9.3 mg/dL (Normal) Range: 8.7-10.3 Carbon Dioxide, Total 25 mmol/L (Normal) Range: 20-29 Comments: Please note reference interval change Chloride 103 mmol/L (Normal) Range: 96-106 Potassium 5.1 mmol/L (Normal) Range: 3.5-5.2 Sodium 143 mmol/L (Normal) Range: 134-144 BUN/Creatinine Ratio 18 (Normal) Range: 12-28 eGFR If Africn Am 26 mL/min/1.73 (Abnormal) eGFR If NonAfricn Am 23 mL/min/1.73 (Abnormal) Creatinine 2.05 mg/dL (Abnormal) Range: 0.57-1.00 BUN 37 mg/dL (Abnormal) Range: 8-27 Glucose 65 mg/dL (Normal) Range: 65-99 3-Rvj-590933:15 CBC, Platelets & Auto Diff Comments: PATIENT NOT FASTINGPERFORMED BY: [facility] Mwbmgw1037 [facility] [id number] (70380) Immature Grans (Abs) 0.0 {x10E3/uL} (Normal) Range: 0.0-0.1 Immature Granulocytes 0 % (Normal) Baso (Absolute) 0.1 {x10E3/uL} (Normal) Range: 0.0-0.2 Eos (Absolute) 0.3 {x10E3/uL} (Normal) Range: 0.0-0.4 Monocytes(Absolute) 0.5 {x10E3/uL} (Normal) Range: 0.1-0.9 Lymphs (Absolute) 2.1 {x10E3/uL} (Normal) Range: 0.7-3.1 Neutrophils (Absolute) 4.0 {x10E3/uL} (Normal) Range: 1.4-7.0 Basos 1 % (Normal) Eos 5 % (Normal) Monocytes 8 % (Normal) Lymphs 30 % (Normal) Neutrophils 56 % (Normal) Platelets 432 {x10E3/uL} (Abnormal) Range: 150-379 RDW 19.8 % (Abnormal) Range: 12.3-15.4 MCHC 31.4 g/dL (Abnormal) Range: 31.5-35.7 MCH 28.9 pg (Normal) Range: 26.6-33.0 MCV 92 fL (Normal) Range: 79-97 Hematocrit 37.9 % (Normal) Range: 34.0-46.6 Hemoglobin 11.9 g/dL (Normal) Range: 11.1-15.9 RBC 4.12 {x10E6/uL} (Normal) Range: 3.77-5.28 WBC 7.1 {x10E3/uL} (Normal) Range: 3.4-10.8 8-Gya-217209:15 PREALBUMIN (59192) Comments: PATIENT NOT FASTINGPERFORMED BY: [employer] LabCoChilton Memorial HospitalQoijis6676 [facility] [id number] Prealbumin 38 mg/dL (Abnormal) Range: 9-32 8-Vsn-148069:15 Renal function Panel (74598) Comments: PATIENT NOT FASTINGPERFORMED BY: [facility] Zpvuoc7384 [facility] [id number] Albumin 4.1 g/dL (Normal) Range: 3.5-4.8 Phosphorus 4.6 mg/dL (Abnormal) Range: 2.5-4.5 Calcium 9.7 mg/dL (Normal) Range: 8.7-10.3 Carbon Dioxide, Total 21 mmol/L (Normal) Range: 18-29 Comments: Effective August 26, 2017 Carbon Dioxide, Total reference interval will be changing to: Age Male Female 0 days - 30 days 16 - 29 16 - 29 31 days - 1 year 15 - 25 15 - 25 2 years - 5 years 17 - 26 17 - 26 6 y ears - 12 years 19 - 27 19 - 27 >12 years 20 - 29 20 - 29 Chloride 105 mmol/L (Normal) Range: 96-106 Potassium 5.2 mmol/L (Normal) Range: 3.5-5.2 Sodium 143 mmol/L (Normal) Range: 134-144 BUN/Creatinine Ratio 23 (Normal) Range: 12-28 eGFR If Africn Am 26 mL/min/1.73 (Abnormal) eGFR If NonAfricn Am 22 mL/min/1.73 (Abnormal) Creatinine 2.07 mg/dL (Abnormal) Range: 0.57-1.00 BUN 47 mg/dL (Abnormal) Range: 8-27 Glucose 66 mg/dL (Normal) Range: 65-99 96-Wzd-386220:39 CREATININE FINGERSTICK Comments: [facility] LaboratoryPoint of Dwge4998[place] [address] EGFR WB 19.0000 mL/min (Abnormal) CREATININE WB 2.6 mg/dL (Abnormal) Range: 0.55-1.02 : Magnesium 1.4 mg/dL (Abnormal) Comments: PATIENT NOT FASTINGPERFORMED BY: [employer] Dngpox5540 [facility] [id number] 56 Range: 1.6-2.3 : Phosphorus 6.1 mg/dL (Abnormal) Comments: PATIENT NOT FASTINGPERFORMED BY: [employer] Jdeump3173 [facility] [id number] 56 Range: 2.5-4.5 66-Doe-45980:57 Anaerobic & Aerobic Comments: PATIENT NOT FASTINGPERFORMED BY: [facility] Zrugfj0822 [facility] [id number] Information: BUTTOCK SRC:BT Culture (29637) Result 1 NG36 (Normal) Comments: No growth in 36 - 48 hours. Aerobic Culture Final report (Normal) Result 1 STREIN (Abnormal) Comments: Streptococcus intermediusLight growth Anaerobic Culture Final report (Abnormal) :56 METABOLIC PANEL, COMPREHENSIVE Comments: PATIENT NOT FASTINGPERFORMED BY: [employer] Nudlee5083 [facility] [id number] (75057) ALT (SGPT) 52 [iU]/L (Abnormal) Range: 0-32 AST (SGOT) 44 [iU]/L (Abnormal) Range: 0-40 Alkaline Phosphatase 193 [iU]/L (Abnormal) Range: 39-117 Bilirubin, Total 0.2 mg/dL (Normal) Range: 0.0-1.2 A/G Ratio 0.9 (Abnormal) Range: 1.2-2.2 Globulin, Total 3.5 g/dL (Normal) Range: 1.5-4.5 Albumin 3.3 g/dL (Abnormal) Range: 3.5-4.8 Protein, Total 6.8 g/dL (Normal) Range: 6.0-8.5 Calcium 9.2 mg/dL (Normal) Range: 8.7-10.3 Carbon Dioxide, Total 17 mmol/L (Abnormal) Range: 18-29 Chloride 106 mmol/L (Normal) Range: 96-106 Potassium 4.9 mmol/L (Normal) Range: 3.5-5.2 Sodium 143 mmol/L (Normal) Range: 134-144 BUN/Creatinine Ratio 31 (Abnormal) Range: 12-28 eGFR If Africn Am 19 mL/min/1.73 (Abnormal) eGFR If NonAfricn Am 17 mL/min/1.73 (Abnormal) Creatinine 2.66 mg/dL (Abnormal) Range: 0.57-1.00 BUN 83 mg/dL (Abnormal) Range: 8-27 Glucose 151 mg/dL (Abnormal) Range: 65-99 77-Bfh-241369:56 CBC with auto diff (06817) Comments: PATIENT NOT FASTINGPERFORMED BY: [facility]CoChilton [facility] HospitalZdcdrg4583 [facility] [id number] Immature Grans (Abs) 0.0 {x10E3/uL} (Normal) Range: 0.0-0.1 Immature Granulocytes 0 % (Normal) Baso (Absolute) 0.1 {x10E3/uL} (Normal) Range: 0.0-0.2 Eos (Absolute) 0.1 {x10E3/uL} (Normal) Range: 0.0-0.4 Monocytes(Absolute) 0.4 {x10E3/uL} (Normal) Range: 0.1-0.9 Lymphs (Absolute) 2.8 {x10E3/uL} (Normal) Range: 0.7-3.1 Neutrophils (Absolute) 5.2 {x10E3/uL} (Normal) Range: 1.4-7.0 Basos 1 % (Normal) Eos 1 % (Normal) Monocytes 4 % (Normal) Lymphs 33 % (Normal) Neutrophils 61 % (Normal) Platelets 381 {x10E3/uL} (Abnormal) Range: 150-379 RDW 18.3 % (Abnormal) Range: 12.3-15.4 MCHC 31.6 g/dL (Normal) Range: 31.5-35.7 MCH 28.0 pg (Normal) Range: 26.6-33.0 MCV 88 fL (Normal) Range: 79-97 Hematocrit 37.3 % (Normal) Range: 34.0-46.6 Hemoglobin 11.8 g/dL (Normal) Range: 11.1-15.9 RBC 4.22 {x10E6/uL} (Normal) Range: 3.77-5.28 WBC 8.6 {x10E3/uL} (Normal) Range: 3.4-10.8 65-Mym-926769:56 TSH (62069) Comments: PATIENT NOT FASTINGPERFORMED BY: [employer] Digital SignageOnslow Memorial Hospital [id number] TSH 0.489 {uIU/mL} (Normal) Range: 0.450-4.500 52-Pxr-257520:56 PREALBUMIN (62172) Comments: PATIENT NOT FASTINGPERFORMED BY: [facility]ic[facility] Digital SignageOnslow [facility] Hospital [id number] Prealbumin 18 mg/dL (Normal) Range: 9-32 61-Hxu-756380:02 URINE CARMEN CULTURE-IDENTIFICATN Comments: PATIENT NOT FASTINGPERFORMED BY: [employer] FoodsSullivan [facility] [id number] Information: SRC:UC (63868) Result 1 MUG (Normal) Comments: Mixed urogenital flora2,000 Colonies/mL Urine Culture,Comprehensive Final report (Normal) 25-Qmp-490340:45 Urinalysis, Office (51715) UA - LEUKOCYTE ESTERASE Moderate (Normal) UA - NITRITE Negative (Normal) URINE UROBILINGN EVY TIMED 2 mg/dL (Normal) UA - PROTEIN 30 mg/dL (Normal) UA - PH 6.0 (Normal) UA - BLOOD Hemolyzed Large (Normal) UA - SPECIFIC GRAVITY 1.020 (Normal) UA - KETONES Negative mg/dL (Normal) UA - BILIRUBIN Negative (Normal) UA - GLUCOSE Negative (Normal) 23-Sep-20177:00 CREATININE CLEARANCE Comments: PATIENT NOT FASTINGPERFORMED BY: [employer]70 LinkpassNovant Health [facility] [id number] Information: START 09/23/17@7AM (69819) Creatinine Clearance 31 mL/min (Abnormal) Range: 88-128 Comments: The above range is based on 1.73 square meter average body surfacearea. Creatinine, Ur 24hr 740 {mg/24_hr} (Abnormal) Range: 800-1800 Creatinine, Urine 87.1 mg/dL (Normal) eGFR If Africn Am 34 mL/min/1.73 (Abnormal) eGFR If NonAfricn Am 30 mL/min/1.73 (Abnormal) Creatinine 1.64 mg/dL (Abnormal) Range: 0.57-1.00 23-Sep-20177:00 Total Protein,24 Hour Urine Comments: PATIENT NOT FASTINGPERFORMED BY: [employer]70 [place] [id number] (57961) Prot,24hr calculated 401 {mg/24_hr} (Abnormal) Range: 30-150 Protein,Total,Urine 47.2 mg/dL (Normal) 3-Vih-277235:24 Methymalonic Acid, Serum Comments: PATIENT NOT FASTINGPERFORMED BY: Minicom Digital SignageOnslow [facility] Hospital [id number] BY: [employer] [id number] (34800) Methylmalonic Acid, Serum 271 nmol/L (Normal) Range: 0-378 1-Kar-275802:24 Vitamin B-12 (cyanocobalamin) Comments: PATIENT NOT FASTINGPERFORMED BY: [employer]70 PrivepassWh[facility]burg [facility] Hospital [id number] BY: [employer] [id number] (49109) Vitamin B12 414 pg/mL (Normal) Range: 232-1245 5-Osh-596667:24 Iron Binding Capacity Comments: PATIENT NOT FASTINGPERFORMED BY: [employer]70 [place] [id number] BY: [employer] [id number] Inf ormation: NURSE DROP OFF (TIBC) (45106) Iron Saturation 5 % (Abnormal) Range: 15-55 Iron, Serum 16 ug/dL (Abnormal) Range: 27-139 UIBC 301 ug/dL (Normal) Range: 118-369 Iron Bind.Cap.(TIBC) 317 ug/dL (Normal) Range: 250-450 9-Kgf-874391:24 Ferritin (87096) Comments: PATIENT NOT FASTINGPERFORMED BY: [place] [address] [facility] [id number] BY: [address] [id number] Ferritin, Serum 72 ng/mL (Normal) Range: 15-150 0-Rcv-145847:08 Ferritin (58284) Comments: PATIENT NOT FASTINGPERFORMED BY: [address] [id number] Ferritin, Serum 52 ng/mL (Normal) Range: 15-150 9-Wbm-434494:08 CBC (Auto) (71961) Comments: PATIENT NOT FASTINGPERFORMED BY: [place] 2622270 [facility] [id number] Platelets 293 {x10E3/uL} (Normal) Range: 150-379 RDW 18.9 % (Abnormal) Range: 12.3-15.4 MCHC 32.1 g/dL (Normal) Range: 31.5-35.7 MCH 29.2 pg (Normal) Range: 26.6-33.0 MCV 91 fL (Normal) Range: 79-97 Hematocrit 41.7 % (Normal) Range: 34.0-46.6 Hemoglobin 13.4 g/dL (Normal) Range: 11.1-15.9 RBC 4.59 {x10E6/uL} (Normal) Range: 3.77-5.28 WBC 6.8 {x10E3/uL} (Normal) Range: 3.4-10.8 9-Sum-880958:08 TSH (90112) Comments: PATIENT NOT FASTINGPERFORMED BY: [address] [id number] TSH 0.117 {uIU/mL} (Abnormal) Range: 0.450-4.500 2-Bht-880356:08 T4, FREE (THYROXINE) (61031) Comments: PATIENT NOT FASTINGPERFORMED BY: [facility]6[address] [facility] [id number] T4,Free(Direct) 1.86 ng/dL (Abnormal) Range: 0.82-1.77 :31 T4, FREE (THYROXINE) Comments: recheck in 6 weeks; PATIENT NOT FASTINGPERFORMED BY: [facility]6[address] [facility] [id number] Information: DIFFICULT DRAW (57133) T4,Free(Direct) 1.57 ng/dL (Normal) Range: 0.82-1.77 :31 T3, FREE (TRIDOTHYRONINE) (88063) Comments: recheck in 6 weeks; PATIENT NOT FASTINGPERFORMED BY: [facility]6[address] [facility] [id number] Triiodothyronine,Free,Serum 2.3 pg/mL (Normal) Range: 2.0-4.4 :31 TSH (00111) Comments: recheck in 6 weeks; PATIENT NOT FASTINGPERFORMED BY: [facility]6[address] [facility] [id number] TSH 0.920 {uIU/mL} (Normal) Range: 0.450-4.500 :58 Protein Electro, Random Urine Comments: PATIENT NOT FASTINGPERFORMED BY: [facility]6370 [facility] [id number] Please note: SPRCS (Normal) Comments: Protein electrophoresis scan will follow via computer, mail, orcourier delivery. M-Navarro, % Not Observed % (Normal) Gamma Globulin, U 42.4 % (Normal) Beta Globulin, U 19.9 % (Normal) Yhwzi-1-Mgemfagw, U 8.9 % (Normal) Usuvn-5-Hsjsulgg, U 6.0 % (Normal) Albumin, U 22.7 % (Normal) Protein,Total,Urine 58.1 mg/dL (Normal) :58 TSH (49117) Comments: PATIENT NOT FASTINGPERFORMED BY: [facility]6370 [facility] [id number] TSH 0.056 {uIU/mL} (Abnormal) Range: 0.450-4.500 :58 T3, FREE (TRIDOTHYRONINE) (24589) Comments: PATIENT NOT FASTINGPERFORMED BY: [facility]6370 [facility] [id number] Triiodothyronine,Free,Serum 2.4 pg/mL (Normal) Range: 2.0-4.4 :58 T4, FREE (THYROXINE) (02630) Comments: PATIENT NOT FASTINGPERFORMED BY: [facility]Henry [facility]6370 An[facility] [id number] T4,Free(Direct) 2.53 ng/dL (Abnormal) Range: 0.82-1.77 :58 IRON BINDING CAPACITY (TIBC) Comments: PATIENT NOT FASTINGPERFORMED BY: [facility]6370 [facility] [id number] (67765) Iron Saturation 4 % (Abnormal) Range: 15-55 Iron, Serum 18 ug/dL (Abnormal) Range: 27-139 UIBC 388 ug/dL (Abnormal) Range: 118-369 Iron Bind.Cap.(TIBC) 406 ug/dL (Normal) Range: 250-450 :58 FERRITIN (03383) Comments: PATIENT NOT FASTINGPERFORMED BY: [facility]6370 [facility] [id number] Ferritin, Serum 24 ng/mL (Normal) Range: 15-150 :58 Sed Rate Erythrocyte (38452) Comments: PATIENT NOT FASTINGPERFORMED BY: [facility]6370 [facility] [id number] Sedimentation Rate-Westergren 73 mm/h (Abnormal) Range: 0-40 :58 Serum Protein Electrophoresis Comments: PATIENT NOT FASTINGPERFORMED BY: [facility]Henry [facility]6370 [facility] [id number] (SPEP) (43028) Please note: SPRCS (Normal) Comments: Protein electrophoresis scan will follow via computer, mail, orcourier delivery. A/G Ratio 0.7 (Normal) Range: 0.7-1.7 Globulin, Total 4.2 g/dL (Abnormal) Range: 2.2-3.9 M-Navarro Not Observed g/dL (Normal) Gamma Globulin 1.2 g/dL (Normal) Range: 0.4-1.8 Beta Globulin 1.4 g/dL (Abnormal) Range: 0.7-1.3 Eodjv-3-Oyfufsik 1.1 g/dL (Abnormal) Range: 0.4-1.0 Akvhh-0-Vwtzutff 0.4 g/dL (Normal) Range: 0.0-0.4 Albumin 3.1 g/dL (Normal) Range: 2.9-4.4 :58 MAGNESIUM (82300) Comments: PATIENT NOT FASTINGPERFORMED BY: [facility] Unenug4199 [facility] [place] [place] [id number] Magnesium, Serum 1.8 mg/dL (Normal) Range: 1.6-2.3 :58 PHOSPHORUS (22294) Comments: PATIENT NOT FASTINGPERFORMED BY: [facility] Jxxwzx0746 [facility] HospitalDublin [place] [id number] Phosphorus, Serum 4.7 mg/dL (Abnormal) Range: 2.5-4.5 :58 CALCIFEDIOL (76874) Comments: PATIENT NOT FASTINGPERFORMED BY: [facility]dFanaticC[facility] Nriqqn7547 [facility]bl[facility] [place] [id number] Vitamin D, 25-Hydroxy 34.5 ng/mL (Normal) Range: 30.0-100.0 Comments: Vitamin D deficiency has been defined by the [place] of[place]icine and an Endocrine Society practice guideline as alevel of serum 25-OH vitamin D less than 20 ng/mL (1,2).The Endocrine Society went on to further define vitamin Dinsufficiency as a level between 21 and 29 ng/mL (2).1. IOM ([place] of Medicine). 2010. Dietary reference intakes for calcium and D. [place]: The National Academies Press.2. Justin MF, Jazmyn NC, Aniya CANO, et al. Evaluation, treatment, and prevention of vitamin D deficiency: an Endocrine Society clinical practice guideline. JCEM. 2010; 96(7):1911-30. 57-Cvg-284905:58 PARATHORMONE (65716) Comments: PATIENT NOT FASTINGPERFORMED BY: CRISTA LabCoChilton [facility] HospitalEvywdi3514 [facility] [id number] PTH, Intact 41 pg/mL (Normal) Range: 15-65 90-Wka-239681:58 METABOLIC PANEL, Comments: PATIENT NOT FASTINGPERFORMED BY: [facility]CoCh[facility] HospitalTxjagc7131 [facility] [id number] Information: DIFFICULT DRAW COMPREHENSIVE (35434) ALT (SGPT) 21 [iU]/L (Normal) Range: 0-32 AST (SGOT) 23 [iU]/L (Normal) Range: 0-40 Alkaline Phosphatase, S 130 [iU]/L (Abnormal) Range: 39-117 Bilirubin, Total <0.2 mg/dL (Normal) Range: 0.0-1.2 A/G Ratio 1.0 (Abnormal) Range: 1.2-2.2 Globulin, Total 3.6 g/dL (Normal) Range: 1.5-4.5 Albumin, Serum 3.7 g/dL (Normal) Range: 3.5-4.8 Protein, Total, Serum 7.3 g/dL (Normal) Range: 6.0-8.5 Calcium, Serum 9.6 mg/dL (Normal) Range: 8.7-10.3 Carbon Dioxide, Total 20 mmol/L (Normal) Range: 18-29 Chloride, Serum 101 mmol/L (Normal) Range: 96-106 Potassium, Serum 4.7 mmol/L (Normal) Range: 3.5-5.2 Sodium, Serum 143 mmol/L (Normal) Range: 134-144 BUN/Creatinine Ratio 21 (Normal) Range: 12-28 eGFR If Africn Am 32 mL/min/1.73 (Abnormal) eGFR If NonAfricn Am 28 mL/min/1.73 (Abnormal) Creatinine, Serum 1.75 mg/dL (Abnormal) Range: 0.57-1.00 BUN 36 mg/dL (Abnormal) Range: 8-27 Glucose, Serum 63 mg/dL (Abnormal) Range: 65-99 0-Acn-516815:04 Vitamin B-12 (cyanocobalamin) Comments: PATIENT WAS FASTINGPERFORMED BY: [facility]dFanaticSaint Luke[facility]S Hospital1447 [facility] [id number] BY: [facility]6370 [facility] [id number] (76594) Vitamin B12 >2000 pg/mL (Abnormal) Range: 211-946 2-Fav-620221:04 CBC WITH MANUAL DIFF Comments: PATIENT WAS FASTINGPERFORMED BY: [employer] [id number] BY: [facility]6370 [facility] [id number] (65427) Immature Grans (Abs) 0.0 {x10E3/uL} (Normal) Range: 0.0-0.1 Immature Granulocytes 0 % (Normal) Baso (Absolute) 0.1 {x10E3/uL} (Normal) Range: 0.0-0.2 Eos (Absolute) 0.5 {x10E3/uL} (Abnormal) Range: 0.0-0.4 Monocytes(Absolute) 0.6 {x10E3/uL} (Normal) Range: 0.1-0.9 Lymphs (Absolute) 2.1 {x10E3/uL} (Normal) Range: 0.7-3.1 Neutrophils (Absolute) 4.2 {x10E3/uL} (Normal) Range: 1.4-7.0 Basos 1 % (Normal) Eos 6 % (Normal) Monocytes 8 % (Normal) Lymphs 28 % (Normal) Neutrophils 57 % (Normal) Platelets 401 {x10E3/uL} (Abnormal) Range: 150-379 RDW 15.8 % (Abnormal) Range: 12.3-15.4 MCHC 30.8 g/dL (Abnormal) Range: 31.5-35.7 MCH 25.8 pg (Abnormal) Range: 26.6-33.0 MCV 84 fL (Normal) Range: 79-97 Hematocrit 35.1 % (Normal) Range: 34.0-46.6 Hemoglobin 10.8 g/dL (Abnormal) Range: 11.1-15.9 RBC 4.18 {x10E6/uL} (Normal) Range: 3.77-5.28 WBC 7.6 {x10E3/uL} (Normal) Range: 3.4-10.8 [id number] LIPOPROTEIN, BLD, BY NMR Comments: PATIENT WAS FASTINGPERFORMED BY: BN [facility] [id number] [facility] [id number] BY: CB [facility] [id number] [facility] [id number] ([id number]) LP-IR Score 33 (Normal) Comments: INSULIN RESISTANCE MARKER <--Insulin Sensitive Insulin Resistant--> Percentile in Reference PopulationInsulin Resistance ScoreLP-IR Score Low 25th 50th 75th High <27 27 45 63 >63LP-IR Score is inaccurate if patient is non-fasting. .The LP-IR score is a laboratory developed i [facility] that has beenassociated with insulin resistance and diabetes risk and should beused as one component of a physician's clinical assessment. TheLP-IR score listed above has not been cleared by the [place] Food andDrug Administration. LDL Size 21.9 nm (Normal) Comments: INTERPRETATIVE INFORMATION PARTICLE CONCENTRATION AND SIZE <--Lower CVD Risk Highe r CVD Risk--> LDL AND HDL PARTICLES Percentile in Reference Population HDL-P (total) High 75th 50th 25th Low >34.9 34.9 30.5 26.7 <26.7 . Small LDL-P Low 25th 50th 75th High <117 117 527 839 >839 . LDL Size <-Large (Pattern A)-> <-Small (Pattern B)-> 23.0 20.6 20.5 19.0 Small LDL-P and LDL Size are associated with CVD risk, but not afterLDL-P is taken into account. .These assays were developed and their performance characteristicsdetermined by [employer]. These assays have not been cleared by [place] Food and Drug Administration. The clinical utility of theselaboratory values have not been fully established. Small LDL-P <90 nmol/L (Normal) HDL-P (Total) 27.7 umol/L (Abnormal) Cholesterol, Total 147 mg/dL (Normal) Range: 100-199 Triglycerides 137 mg/dL (Normal) Range: 0-149 HDL-C 73 mg/dL (Normal) LDL-C 47 mg/dL (Normal) Range: 0-99 Comments: . Optimal < 100 Above optimal 100 - 129 Borderline 1 30 - 159 High 160 - 189 Very high > 189 .LDL-C is inaccurate if patient is non-fasting. LDL-P 444 nmol/L (Normal) Comments: Low < 1000 Moderate 1000 - 1299 Borderline-High 1300 - 1599 High 1600 - 2000 Very High > 2000 59-Ugl-962661:36 UP ([id number]) Comments: PATIENT WAS FASTINGPERFORMED BY: [employer] [facility]age[facility] [id number] Please note: SPRCS (Normal) Comments: Protein electrophoresis scan will follow via computer, mail, orcourier delivery. M-Navarro, % Not Observed % (Normal) Gamma Globulin, U 26.0 % (Normal) Beta Globulin, U 31.1 % (Normal) Zmego-0-Ovismqna, U 9.8 % (Normal) Tyccy-6-Ecdyrzvv, U 2.5 % (Normal) Albumin, U 30.7 % (Normal) Protein,Total,Urine 35.3 mg/dL (Normal) 37-Vnx-983169:36 SPE ([id number]) Comments: PATIENT WAS FASTINGPERFORMED BY: [employer] ShoprocketO[facility] [id number] Please note: SPRCS (Normal) Comments: Protein electrophoresis scan will follow via computer, mail, orcourier delivery. A/G Ratio 0.7 (Normal) Range: 0.7-1.7 Globulin, Total 4.2 g/dL (Abnormal) Range: 2.2-3.9 M-Navarro Not Observed g/dL (Normal) Gamma Globulin 1.0 g/dL (Normal) Range: 0.4-1.8 Beta Globulin 1.5 g/dL (Abnormal) Range: 0.7-1.3 Nlycl-0-Izjgdiwy 1.3 g/dL (Abnormal) Range: 0.4-1.0 Vwhay-4-Nnqgvfet 0.4 g/dL (Normal) Range: 0.0-0.4 Albumin 3.0 g/dL (Normal) Range: 2.9-4.4 :36 Lipid Panel ([id number]) Comments: PATIENT WAS FASTINGPERFORMED BY: [facility] SolutionsChilton Memorial HospitalOzmshx8407 [facility] [id number] LDL/HDL Ratio 0.9 {ratio_units} (Normal) Range: 0.0-3.2 Comments: LDL/HDL Ratio Men Women 1/2 Avg.Risk 1.0 1.5 Av g.Risk 3.6 3.2 2X Avg.Risk 6.2 5.0 3X Avg.Risk 8.0 6.1 LDL Cholesterol Calc 53 mg/dL (Normal) Range: 0-99 VLDL Cholesterol Alesha 40 mg/dL (Normal) Range: 5-40 HDL Cholesterol 60 mg/dL (Normal) Comments: According to ATP-III Guidelines, HDL-C >59 mg/dL is considered anegative risk factor for CHD. Triglycerides 198 mg/dL (Abnormal) Range: 0-149 Cholesterol, Total 153 mg/dL (Normal) Range: 100-199 :36 Metabolic Panel, Comprehensive Comments: PATIENT WAS FASTINGPERFORMED BY: [employer] Rxxxdm5100 [facility] [id number] ([id number]) ALT (SGPT) 18 [iU]/L (Normal) Range: 0-32 AST (SGOT) 28 [iU]/L (Normal) Range: 0-40 Alkaline Phosphatase, S 110 [iU]/L (Normal) Range: 39-117 Bilirubin, Total <0.2 mg/dL (Normal) Range: 0.0-1.2 A/G Ratio 1.3 (Normal) Range: 1.1-2.5 Globulin, Total 3.2 g/dL (Normal) Range: 1.5-4.5 Albumin, Serum 4.0 g/dL (Normal) Range: 3.5-4.8 Protein, Total, Serum 7.2 g/dL (Normal) Range: 6.0-8.5 Calcium, Serum 10.0 mg/dL (Normal) Range: 8.7-10.3 Carbon Dioxide, Total 23 mmol/L (Normal) Range: 18-29 Chloride, Serum 97 mmol/L (Normal) Range: 97-106 Potassium, Serum 4.8 mmol/L (Normal) Range: 3.5-5.2 Sodium, Serum 140 mmol/L (Normal) Range: 136-144 BUN/Creatinine Ratio 11 (Normal) Range: 11-26 eGFR If Africn Am 34 mL/min/1.73 (Abnormal) eGFR If NonAfricn Am 30 mL/min/1.73 (Abnormal) Creatinine, Serum 1.65 mg/dL (Abnormal) Range: 0.57-1.00 BUN 18 mg/dL (Normal) Range: 8-27 Glucose, Serum 103 mg/dL (Abnormal) Range: 65-99 80-Fax-939536:36 CBC WITH MANUAL DIFF Comments: PATIENT WAS FASTINGPERFORMED BY: LabCoChilton Memorial HospitalSivedw3525 [facility] [id number] Information: DIFFICULT DRAW ([id number]) Immature Grans (Abs) 0.0 {x10E3/uL} (Normal) Range: 0.0-0.1 Immature Granulocytes 0 % (Normal) Baso (Absolute) 0.1 {x10E3/uL} (Normal) Range: 0.0-0.2 Eos (Absolute) 0.4 {x10E3/uL} (Normal) Range: 0.0-0.4 Monocytes(Absolute) 0.6 {x10E3/uL} (Normal) Range: 0.1-0.9 Lymphs (Absolute) 2.3 {x10E3/uL} (Normal) Range: 0.7-3.1 Neutrophils (Absolute) 3.7 {x10E3/uL} (Normal) Range: 1.4-7.0 Basos 1 % (Normal) Eos 6 % (Normal) Monocytes 9 % (Normal) Lymphs 32 % (Normal) Neutrophils 52 % (Normal) Platelets 459 {x10E3/uL} (Abnormal) Range: 150-379 RDW 16.0 % (Abnormal) Range: 12.3-15.4 MCHC 31.3 g/dL (Abnormal) Range: 31.5-35.7 MCH 28.6 pg (Normal) Range: 26.6-33.0 MCV 91 fL (Normal) Range: 79-97 Hematocrit 39.0 % (Normal) Range: 34.0-46.6 Hemoglobin 12.2 g/dL (Normal) Range: 11.1-15.9 RBC 4.27 {x10E6/uL} (Normal) Range: 3.77-5.28 WBC 7.1 {x10E3/uL} (Normal) Range: 3.4-10.8 :36 LDH (LD) (LACTATE DEHYDROGENASE) Comments: PATIENT WAS FASTINGPERFORMED BY: [facility] SolutionsCh[facility] HospitalPcshln3752 [facility] [id number] ([id number]) LDH 161 [iU]/L (Normal) Range: 119-226 :36 Vitamin B-12 (cyanocobalamin) Comments: PATIENT WAS FASTINGPERFORMED BY: [facility] SolutionsSocorro [facility] HospitalNchdix1431 [facility] [id number] ([id number]) Vitamin B12 717 pg/mL (Normal) Range: 211-946 33-Ulx-810467:36 Iron Binding Capacity (TIBC) Comments: PATIENT WAS FASTINGPERFORMED BY: [facility] SolutionsSocorro General HospitalRygntw7805 [facility] [id number] ([id number]) Iron Saturation 7 % (Abnormal) Range: 15-55 Iron, Serum 29 ug/dL (Normal) Range: 27-139 UIBC 386 ug/dL (Abnormal) Range: 118-369 Iron Bind.Cap.(TIBC) 415 ug/dL (Normal) Range: 250-450 :36 Ferritin ([id number]) Comments: PATIENT WAS FASTINGPERFORMED BY: [facility] SolutionsCh[facility] HospitalOehivg1883 [facility] [id number] Ferritin, Serum 43 ng/mL (Normal) Range: 15-150 :36 Folic Acid Serum ([id number]) Comments: PATIENT WAS FASTINGPERFORMED BY: [facility] SolutionsCh[facility] HospitalDoqvkk3902 [facility] [id number] Folate (Folic Acid), Serum 11.3 ng/mL (Normal) Comments: A serum folate concentration of less than 3.1 ng/mL isconsidered to represent clinical deficiency. 27-Aij-237318:36 TSH ([id number]) Comments: PATIENT WAS FASTINGPERFORMED BY: [facility]6370 [facility] [id number] TSH 0.530 {uIU/mL} (Normal) Range: 0.450-4.500 :36 T4, FREE (THYROXINE) ([id number]) Comments: PATIENT WAS FASTINGPERFORMED BY: [facility]6370 [facility] [id number] T4,Free(Direct) 1.90 ng/dL (Abnormal) Range: 0.82-1.77 :36 T3, FREE (TRIDOTHYRONINE) (81870) Comments: PATIENT WAS FASTINGPERFORMED BY: [facility]6370 [facility] [id number] Triiodothyronine,Free,Serum 1.9 pg/mL (Abnormal) Range: 2.0-4.4 :23 CBC W/Diff, Automated Comments: [facility] [address] [place], [address] Absolute Lymph 2.62 {X10_3/ul} (Normal) Range: 0.83-4.51 Absolute Neut 2.6 {X10_3/uL} (Normal) Range: 2.0-7.7 IM GRAN % 0.500 % (Normal) Range: 0.0-0.9 Comments: IG% - Immature Granulocytes (promyelocytes, myelocytes andmetamyelocytes) > 1% indicates that a LEFT SHIFT is Present. BASO% 1.4 % (Abnormal) Range: 0-1 EO% 6.9 % (Abnormal) Range: 0-5 MONO% 11.0 % (Abnormal) Range: 0-10 LY% 40.2 % (Normal) Range: 19-41 NEUT% 40.0 % (Abnormal) Range: 47-70 MPV 10.6 fL (Normal) Range: 6.2-12.0 PLT 298 K/mm3 (Normal) Range: 150-450 RDW SD 53.5 fL (Abnormal) Range: 35.1-43.9 RDW CV 16.8 % (Abnormal) Range: 11.6-14.6 MCHC 32.8 {g/gl} (Normal) Range: 32-36 MCH 29.9 pg (Normal) Range: 27.0-32.0 MCV 91.2 fL (Normal) Range: 81-99 HCT 31.1 % (Abnormal) Range: 37-47 HGB 10.2 g/dL (Abnormal) Range: 12.0-15.0 RBC 3.41 {M/mm3} (Abnormal) Range: 4.2-5.4 WBC 6.5 K/mm3 (Normal) Range: 4.4-11.0 24-Nov-20158:23 Comprehensive Metabolic Profil Comments: [facility] [address] [place], [place], [id number] GAP 7 (Normal) Range: 5-15 CO2 27.0 mmol/L (Normal) Range: 21.0-32.0 CL 104 mmol/L (Normal) Range: 98-107 K 4.2 mmol/L (Normal) Range: 3.5-5.1 NA 138 mmol/L (Normal) Range: 136-145 T BILI 0.30 mg/dL (Normal) Range: 0.20-1.00 ALT 29 U/L (Normal) Range: 12-78 ALK P 92 U/L (Normal) Range: 50-136 AST 22 U/L (Normal) Range: 15-37 CA 9.0 mg/dL (Normal) Range: 8.5-10.1 A/G 0.6 {RATIO} (Abnormal) Range: 0.9-2.4 GLOB 4.0 g/dL (Abnormal) Range: 2.3-3.5 ALB 2.6 g/dL (Abnormal) Range: 3.4-5.0 T PROT 6.6 g/dL (Normal) Range: 6.4-8.2 BUN/CRE 12.6 {RATIO} (Normal) Range: 10-20 EST GFR - AA 33 mL/min (Abnormal) Comments: GFR Calc EST GFR 27 mL/min (Abnormal) Comments: Non- GFR Calc CREAT,SERUM 1.90 mg/dL (Abnormal) Range: 0.55-1.20 Comments: The validity of the calculated GFR AND GFRAA in patients over70 years has not been determined. Clinical correlation isessential. BUN 24 mg/dL (Abnormal) Range: 7-18 GLU 72 mg/dL (Normal) Range: 70-110 :23 Free T3 Comments: [facility] [address] [place] [id number] FREE T3 1.3 pg/mL (Abnormal) Range: 2.18-3.98 :23 Lipase Comments: [place] [address] [place] [id number] LIPASE 130 U/L (Normal) Range: 73-393 :23 T4 Free Direct Comments: [place] [address] [place] [id number] T4 FREE DIRECT 1.45 ng/dL (Normal) Range: 0.76-1.46 :23 Thyroid Stim Hormone (TSH) Comments: [place] [address] [place] [id number] TSH 17.10 {uIU/mL} (Abnormal) Range: 0.358-3.74 :22 CRP Comments: Order Date: 11/22/15Order Date: 11/22/15[place] [address], [id number] C-REACTIVE PROT 11.80 mg/L (Abnormal) Range: 0.0-3.0 Comments: C-Reactive Protein (CRP) provides useful information for thediagnosis, therapy and monitoring of inflammatory processesand associated diseases. For the evaluation of Relative Riskfor Cardiovascular Dise ase, a High Sensitivity CRP (HSCRP)should be ordered. :22 Erythrocyte Sed Rate Comments: Order Date: 11/22/15Interface Comments: Reason:Order Date: 11/22/15[place] [address], [id number] SED RATE 83 mm/h (Abnormal) Range: 0-30 2-Mqc-833008:29 Culture, Wound Comments: [place] [address] [address] [id number] CUW See Note (Normal) Comments: Order Date: 11/22/15 Gram StainGram Stain 1+ Red Cell Stroma Rare Gram positive cocci Wound CulturePossible skin contamination, further Identification and sensitivity will be performed only by lana breen's request. ORGANISM 1: Coag Negative StaphAmount Growth Rare :11 CBC W/Diff, Automated Comments: [facility] [address] [place], [address] Absolute Lymph 2.98 {X10_3/ul} (Normal) Range: 0.83-4.51 Absolute Neut 3.1 {X10_3/uL} (Normal) Range: 2.0-7.7 IM GRAN % 0.100 % (Normal) Range: 0.0-0.9 Comments: IG% - Immature Granulocytes (promyelocytes, myelocytes andmetamyelocytes) > 1% indicates that a LEFT SHIFT is Present. BASO% 1.2 % (Abnormal) Range: 0-1 EO% 2.2 % (Normal) Range: 0-5 MONO% 8.2 % (Normal) Range: 0-10 LY% 43.1 % (Abnormal) Range: 19-41 NEUT% 45.2 % (Abnormal) Range: 47-70 MPV 10.3 fL (Normal) Range: 6.2-12.0 PLT 353 K/mm3 (Normal) Range: 150-450 RDW SD 49.2 fL (Abnormal) Range: 35.1-43.9 RDW CV 15.2 % (Abnormal) Range: 11.6-14.6 MCHC 33.3 {g/gl} (Normal) Range: 32-36 MCH 29.8 pg (Normal) Range: 27.0-32.0 MCV 89.4 fL (Normal) Range: 81-99 HCT 33.6 % (Abnormal) Range: 37-47 HGB 11.2 g/dL (Abnormal) Range: 12.0-15.0 RBC 3.76 {M/mm3} (Abnormal) Range: 4.2-5.4 WBC 6.9 K/mm3 (Normal) Range: 4.4-11.0 :11 Comprehensive Metabolic Profil Comments: Is Patient Taking Vitamins or Folic Acid Supplements? [facility] [address] [place], [place], [id number] GAP 7 (Normal) Range: 5-15 CO2 28.0 mmol/L (Normal) Range: 21.0-32.0 CL 103 mmol/L (Normal) Range: 98-107 K 4.0 mmol/L (Normal) Range: 3.5-5.1 NA 138 mmol/L (Normal) Range: 136-145 T BILI 0.50 mg/dL (Normal) Range: 0.20-1.00 ALT 74 U/L (Normal) Range: 12-78 ALK P 135 U/L (Normal) Range: 50-136 AST 80 U/L (Abnormal) Range: 15-37 CA 8.8 mg/dL (Normal) Range: 8.5-10.1 A/G 0.8 {RATIO} (Abnormal) Range: 0.9-2.4 GLOB 3.3 g/dL (Normal) Range: 2.3-3.5 ALB 2.6 g/dL (Abnormal) Range: 3.4-5.0 T PROT 5.9 g/dL (Abnormal) Range: 6.4-8.2 BUN/CRE 24.7 {RATIO} (Abnormal) Range: 10-20 EST GFR - AA 29 mL/min (Abnormal) Comments: GFR Calc EST GFR 24 mL/min (Abnormal) Comments: Non- GFR Calc CREAT,SERUM 2.15 mg/dL (Abnormal) Range: 0.55-1.20 Comments: The validity of the calculated GFR AND GFRAA in patients over70 years has not been determined. Clinical correlation isessential. BUN 53 mg/dL (Abnormal) Range: 7-18 GLU 112 mg/dL (Abnormal) Range: 70-110 Comments: Fasting Glucose result from 110 to <126 mg/dLsuggests IMPAIRED HOMEOSTASIS per A.D.A. criteria. :11 CRP, High Sensitivity Cardiac Comments: Is Patient Taking Vitamins or Folic Acid Supplements? [facility] [address] [place], [place], [id number] CRP HIGH SENS 1.79 mg/L (Normal) Comments: Low Relative Risk of CVD <1.0 mg/L Average Relative Risk of CVD 1.0 - 3.0 mg/L High Relative Risk of CVD >3.0 mg/L :11 Erythrocyte Sed Rate Comments: [facility] [address] [place], [address] SED RATE 37 mm/h (Abnormal) Range: 0-30 :11 Folates, (Folic Acid) Comments: Is Patient Taking Vitamins or Folic Acid Supplements? [facility] [address]mqjuj[address] [place], [address] FOLATES 30.20 ng/mL (Abnormal) Range: 3.1-17.5 :11 Lipid Profile Comments: Is Patient Taking Vitamins or Folic Acid Supplements? [facility] [address]th[address] [place], [address] VLDL 16 mg/dL (Normal) Range: 5-40 LDL 19 mg/dL (Normal) Range: 0-130 HDL 66 mg/dL (Normal) Comments: The drugs N-Acetylcysteine and Metamizole may falsely deressthis assay. Reference Range HDL <40 mg/dL Low HDL Cholesterol HDL >or= 60 mg/dL High HDL Cholesterol TRIG 79 mg/dL (Normal) Comments: The drugs N-Acetylcysteine and Metamizole may falsely deressthis assay.Serum Triglycerides Reference Interval Normal <150 mg/dL Borderline high 150 - 199 mg/dL High 200 - 499 mg/dL Very High > or = 500 mg/dL CHOL 101 mg/dL (Normal) Comments: <200 mg/dL Desirable 200-240 mg/dL Borderline >240 mg/dL High Risk :11 Vitamin B12 694 pg/mL (Normal) Comments: [facility] [address] [place], [phone] Range: 211-911 :11 Vitamin D,25 Hydroxy Comments: [facility] [address] [place], [address] Vitamin D 25-OH > 150.0 ng/mL (Normal) Comments: Vitamin D 25(OH) Status Range Deficiency <20 ng/mL (50nmol/L) Insuffciency 20 - 30 ng/mL (50 - 75 nmol/L) Sufficiency 30 - 100 ng/mL (75 - 250 nmol/L) Toxicity >100 ng/mL (>250 nmol/L)Evidence suggests that patients undergoing fluorescein dyeangiography can retain small amounts of fluorescein in thebody for u p to 48 to 72 hours post-treatment. In the casesof patients with renal insufficiency, retention could bemuch longer.Samples containing fluorescein can produce falsely elevatedvalues when tested with the [employer]ia Centaur Vitamin D assay.With fluorescein interference, observed Vitamin D values canbe as high as >150 ng/mL (>375 nmol/L). Samples should beresubmitted post fluorescein clearance to ensure there is nointerference with Vitamin D test results. :01 Protein+Creatinine Ratio,Urine Comments: [facility] [address]sshu[address]az16[address] [facility] [address] [place], [place], [address] PROT:CRE RATIO 276 {mg/g_CRE} (Abnormal) Range: 0-200 PROTEIN,UR.RAN. 60.7 mg/dL (Abnormal) UR CREAT 220.00 mg/dL (Normal) :01 Renal Profile Comments: [facility] [address] [facility] [place], [place], [address] CO2 30.0 mmol/L (Normal) Range: 21.0-32.0 CL 103 mmol/L (Normal) Range: 98-107 K 4.7 mmol/L (Normal) Range: 3.5-5.1 NA 140 mmol/L (Normal) Range: 136-145 PHOS 4.1 mg/dL (Normal) Range: 2.5-4.9 CA 9.3 mg/dL (Normal) Range: 8.5-10.1 ALB 3.5 g/dL (Normal) Range: 3.4-5.0 BUN/CRE 17.5 {RATIO} (Normal) Range: 10-20 EST GFR - AA 31 mL/min (Abnormal) Comments: GFR Calc EST GFR 26 mL/min (Abnormal) Comments: Non- GFR Calc CREAT,SERUM 2.00 mg/dL (Abnormal) Range: 0.55-1.20 Comments: The validity of the calculated GFR AND GFRAA in patients over70 years has not been determined. Clinical correlation isessential. BUN 35 mg/dL (Abnormal) Range: 7-18 GLU 97 mg/dL (Normal) Range: 70-110 5-Lxw-360305:20 Urinalysis, Complete Comments: Order Date: 09/23/15Has pt arrived? YHow was Urine Obtained? [employer] [place] [employer] [address] [place], [address] YEAST-URINE 1+ {/hpf} (Normal) MUCUS, URINE 0 SEEN {/hpf} (Normal) BACTERIA 1+ {/hpf} (Normal) SQUAM EPI 0-5 SEEN {/hpf} (Normal) Range: 5-10 RBC-UA 0-5 SEEN {/hpf} (Normal) Range: 0-5 WBC 25-50 SEEN {/hpf} (Normal) Range: 0-5 LEUK ESTERASE 500 /ul (Abnormal) OCCULT BLOOD-UR 25 /ul (Abnormal) NITRITE UR Negative (Normal) UROBILI Normal mg/dL (Normal) PROT DIPSTX 30 mg/dL (Abnormal) pH UR 5.0 (Normal) Range: 5.0 - 8.0 SP.GR. DIPSTX 1.020 (Normal) Range: 1.002-1.030 KETONE UR Negative mg/dL (Normal) BILIRUBIN URINE Negative mg/dL (Normal) GLUCOSE, UR Normal mg/dL (Normal) CLARITY Sl. Cloudy (Normal) COLOR Yellow (Normal) 1-Tsu-836584:30 CBC W/Diff, Automated Comments: [facility] [address] [place], [address] Absolute Lymph 2.14 {X10_3/ul} (Normal) Range: 0.83-4.51 Absolute Neut 7.2 {X10_3/uL} (Normal) Range: 2.0-7.7 IM GRAN % 0.100 % (Normal) Range: 0.0-0.9 Comments: IG% - Immature Granulocytes (promyelocytes, myelocytes andmetamyelocytes) > 1% indicates that a LEFT SHIFT is Present. BASO% 0.9 % (Normal) Range: 0-1 EO% 1.2 % (Normal) Range: 0-5 MONO% 3.7 % (Normal) Range: 0-10 LY% 21.6 % (Normal) Range: 19-41 NEUT% 72.5 % (Abnormal) Range: 47-70 MPV 10.3 fL (Normal) Range: 6.2-12.0 PLT 297 K/mm3 (Normal) Range: 150-450 RDW SD 50.2 fL (Abnormal) Range: 35.1-43.9 RDW CV 14.9 % (Abnormal) Range: 11.6-14.6 MCHC 33.3 {g/gl} (Normal) Range: 32-36 MCH 30.7 pg (Normal) Range: 27.0-32.0 MCV 92.3 fL (Normal) Range: 81-99 HCT 42.1 % (Normal) Range: 37-47 HGB 14.0 g/dL (Normal) Range: 12.0-15.0 RBC 4.56 {M/mm3} (Normal) Range: 4.2-5.4 WBC 9.9 K/mm3 (Normal) Range: 4.4-11.0 5-Aua-871484:30 Comprehensive Metabolic Profil Comments: [facility] [address] [place], [address] GAP 9 (Normal) Range: 5-15 CO2 20.0 mmol/L (Abnormal) Range: 21.0-32.0 CL 111 mmol/L (Abnormal) Range: 98-107 K 4.5 mmol/L (Normal) Range: 3.5-5.1 NA 140 mmol/L (Normal) Range: 136-145 T BILI 0.60 mg/dL (Normal) Range: 0.20-1.00 ALT 61 U/L (Normal) Range: 12-78 ALK P 132 U/L (Normal) Range: 50-136 AST 52 U/L (Abnormal) Range: 15-37 CA 8.7 mg/dL (Normal) Range: 8.5-10.1 A/G 0.8 {RATIO} (Abnormal) Range: 0.9-2.4 GLOB 4.1 g/dL (Abnormal) Range: 2.3-3.5 ALB 3.3 g/dL (Abnormal) Range: 3.4-5.0 T PROT 7.4 g/dL (Normal) Range: 6.4-8.2 BUN/CRE 30.0 {RATIO} (Abnormal) Range: 10-20 Estimated CRCL 17.37 ml/min (Normal) EST GFR - AA 28 mL/min (Abnormal) Comments: GFR Calc EST GFR 23 mL/min (Abnormal) Comments: Non- GFR Calc CREAT,SERUM 2.17 mg/dL (Abnormal) Range: 0.55-1.20 Comments: The validity of the calculated GFR AND GFRAA in patients over70 years has not been determined. Clinical correlation isessential. BUN 65 mg/dL (Abnormal) Range: 7-18 GLU 107 mg/dL (Normal) Range: 70-110 4-War-007952:30 Lipase Comments: [facility] [address] [place], [address] LIPASE 542 U/L (Abnormal) Range: 73-393 :45 Vitamin B-12 (cyanocobalamin) Comments: PATIENT WAS FASTINGPERFORMED BY: [employer] LabRECESS.6370 [facility] [id number] ([id number]) Vitamin B12 998 pg/mL (Abnormal) Range: 211-946 40-Oll-31704:45 METABOLIC PANEL, COMPREHENSIVE Comments: PATIENT WAS FASTINGPERFORMED BY: [employer] LabCoBioBeats Ugtygb0717 [facility] [id number] ([id number]) ALT (SGPT) 48 [iU]/L (Abnormal) Range: 0-32 AST (SGOT) 44 [iU]/L (Abnormal) Range: 0-40 Alkaline Phosphatase, S 103 [iU]/L (Normal) Range: 39-117 Bilirubin, Total 0.2 mg/dL (Normal) Range: 0.0-1.2 A/G Ratio 1.3 (Normal) Range: 1.1-2.5 Globulin, Total 3.1 g/dL (Normal) Range: 1.5-4.5 Albumin, Serum 3.9 g/dL (Normal) Range: 3.5-4.8 Protein, Total, Serum 7.0 g/dL (Normal) Range: 6.0-8.5 Calcium, Serum 9.4 mg/dL (Normal) Range: 8.7-10.3 Carbon Dioxide, Total 22 mmol/L (Normal) Range: 18-29 Chloride, Serum 100 mmol/L (Normal) Range: 97-108 Potassium, Serum 4.8 mmol/L (Normal) Range: 3.5-5.2 Sodium, Serum 143 mmol/L (Normal) Range: 134-144 BUN/Creatinine Ratio 19 (Normal) Range: 11-26 eGFR If Africn Am 32 mL/min/1.73 (Abnormal) eGFR If NonAfricn Am 28 mL/min/1.73 (Abnormal) Creatinine, Serum 1.76 mg/dL (Abnormal) Range: 0.57-1.00 BUN 33 mg/dL (Abnormal) Range: 8-27 Glucose, Serum 98 mg/dL (Normal) Range: 65-99 20-Ufk-29185:45 CBC with auto diff Comments: PATIENT WAS FASTINGPERFORMED BY: [facility]CoCh[facility] HospitalNknftk5302 [facility] [id number] Information: [id number] ([id number]) Immature Grans (Abs) 0.0 {x10E3/uL} (Normal) Range: 0.0-0.1 Immature Granulocytes 0 % (Normal) Baso (Absolute) 0.1 {x10E3/uL} (Normal) Range: 0.0-0.2 Eos (Absolute) 0.5 {x10E3/uL} (Abnormal) Range: 0.0-0.4 Monocytes(Absolute) 0.5 {x10E3/uL} (Normal) Range: 0.1-0.9 Lymphs (Absolute) 2.6 {x10E3/uL} (Normal) Range: 0.7-3.1 Neutrophils (Absolute) 4.6 {x10E3/uL} (Normal) Range: 1.4-7.0 Basos 1 % (Normal) Eos 6 % (Normal) Monocytes 6 % (Normal) Lymphs 31 % (Normal) Neutrophils 56 % (Normal) Platelets 519 {x10E3/uL} (Abnormal) Range: 150-379 RDW 14.7 % (Normal) Range: 12.3-15.4 MCHC 32.4 g/dL (Normal) Range: 31.5-35.7 MCH 30.4 pg (Normal) Range: 26.6-33.0 MCV 94 fL (Normal) Range: 79-97 Hematocrit 39.8 % (Normal) Range: 34.0-46.6 Hemoglobin 12.9 g/dL (Normal) Range: 11.1-15.9 RBC 4.24 {x10E6/uL} (Normal) Range: 3.77-5.28 WBC 8.3 {x10E3/uL} (Normal) Range: 3.4-10.8 [id number]-[id number] TSH (20897) Comments: PATIENT WAS FASTINGPERFORMED BY: [facility] [id number] [facility] [id number] TSH 25.460 {uIU/mL} (Abnormal) Range: 0.450-4.500 [id number] Renal Profile Comments: [facility] [id number] [place], [place], [id number] CO2 23.0 mmol/L (Normal) Range: 21.0-32.0 CL 113 mmol/L (Abnormal) Range: 98-107 K 4.7 mmol/L (Normal) Range: 3.5-5.1 NA 141 mmol/L (Normal) Range: 136-145 PHOS 4.0 mg/dL (Normal) Range: 2.5-4.9 CA 9.3 mg/dL (Normal) Range: 8.5-10.1 ALB 3.5 g/dL (Normal) Range: 3.4-5.0 BUN/CRE 22.8 {RATIO} (Abnormal) Range: 10-20 EST GFR - AA 37 mL/min (Abnormal) Comments: GFR Calc EST GFR 31 mL/min (Abnormal) Comments: Non- GFR Calc CREAT,SERUM 1.71 mg/dL (Abnormal) Range: 0.55-1.20 Comments: The validity of the calculated GFR AND GFRAA in patients over70 years has not been determined. Clinical correlation isessential. BUN 39 mg/dL (Abnormal) Range: 7-18 GLU 108 mg/dL (Normal) Range: 70-110 [id number] Culture, Urine Comments: [facility] [id number] [place], [place], [id number] CUUR See Note (Normal) Comments: Urine CultureORGANISM 1: Streptococcus mitis/ oralisColony Count 50,000-80,000 Streptococcus mitis/ oralis: REACTION Ampicillin $ <=0.25 S Benzylpenicillin NF 8 R Ceftriaxone (other dx) $ <=0.12 S Levofloxacin $ 8 R Tetracycline NF >=16 R Vancomycin $ 0.25 S(NF) indicates non-formulary drug at [facility]. Approval by Infectious Disease Specialist required b efore non-formulary drugs may be ordered and/or dispensed. * CLSI guidelines does not recommend testing of cephalosporins. This interpretation is deduced from Beta-lactam/penicillin results. :58 CALCIFIDIOL ([id number]) VIT D 25 Comments: PATIENT NOT FASTINGPERFORMED BY: CrowdFanaticHenry Ford Jackson Hospital6[address] [facility] [id number] Vitamin D, 25-Hydroxy 43.7 ng/mL (Normal) Range: 30.0-100.0 Comments: Vitamin D deficiency has been defined by the [place] [facility] and an Endocrine Society practice guideline as alevel of serum 25-OH vitamin D less than 20 ng/mL (1,2).The Endocrine Society went on to further define vitamin Dinsufficiency as a level between 21 and 29 ng/mL (2).1. IOM ([place] of Medicine). 2010. Dietary reference intakes for calcium and D. [place]: The National Academies Press.2. Justin MF, Jazmyn NC, Aniya CANO, et al. Evaluation, treatment, and prevention of vitamin D deficiency: an Endocrine Society clinical practice guideline. JCEM. 2010; 96(7):1911-30. :58 METABOLIC PANEL, Comments: PATIENT NOT FASTINGPERFORMED BY: [facility] [facility] [id number] Information: [id number] DIFFICULT D RAW; apt. 4-25 COMPREHENSIVE (61808) ALT (SGPT) 11 [iU]/L (Normal) Range: 0-32 AST (SGOT) 17 [iU]/L (Normal) Range: 0-40 Alkaline Phosphatase, S 83 [iU]/L (Normal) Range: 39-117 Bilirubin, Total <0.2 mg/dL (Normal) Range: 0.0-1.2 A/G Ratio 1.5 (Normal) Range: 1.1-2.5 Globulin, Total 2.6 g/dL (Normal) Range: 1.5-4.5 Albumin, Serum 3.9 g/dL (Normal) Range: 3.5-4.8 Protein, Total, Serum 6.5 g/dL (Normal) Range: 6.0-8.5 Calcium, Serum 8.6 mg/dL (Abnormal) Range: 8.7-10.3 Carbon Dioxide, Total 18 mmol/L (Normal) Range: 18-29 Chloride, Serum 107 mmol/L (Normal) Range: 97-108 Potassium, Serum 4.9 mmol/L (Normal) Range: 3.5-5.2 Sodium, Serum 143 mmol/L (Normal) Range: 134-144 BUN/Creatinine Ratio 23 (Normal) Range: 11-26 eGFR If Africn Am 45 mL/min/1.73 (Abnormal) eGFR If NonAfricn Am 39 mL/min/1.73 (Abnormal) Creatinine, Serum 1.32 mg/dL (Abnormal) Range: 0.57-1.00 BUN 31 mg/dL (Abnormal) Range: 8-27 Glucose, Serum 95 mg/dL (Normal) Range: 65-99 00-Zgu-549704:59 Metabolic Panel, Basic Comments: PATIENT NOT FASTINGPERFORMED BY: LabCoChilton [facility] HospitalDfncif4292 [facility] [id number] Information: [id number] (59012) Calcium, Serum 7.8 mg/dL (Abnormal) Range: 8.7-10.3 Carbon Dioxide, Total 19 mmol/L (Normal) Range: 18-29 Chloride, Serum 107 mmol/L (Normal) Range: 97-108 Potassium, Serum 4.3 mmol/L (Normal) Range: 3.5-5.2 Sodium, Serum 141 mmol/L (Normal) Range: 134-144 BUN/Creatinine Ratio 13 (Normal) Range: 11-26 eGFR If Africn Am 36 mL/min/1.73 (Abnormal) eGFR If NonAfricn Am 31 mL/min/1.73 (Abnormal) Creatinine, Serum 1.59 mg/dL (Abnormal) Range: 0.57-1.00 BUN 21 mg/dL (Normal) Range: 8-27 Glucose, Serum 58 mg/dL (Abnormal) Range: 65-99 Comments: Client Requested Flag [id number]-Bkx-479562:23 Urinalysis, Office (28121) UA - LEUKOCYTE ESTERASE Trace (Normal) UA - NITRITE Negative (Normal) URINE UROBILINGN EVY TIMED Normal mg/dL (Normal) UA - PROTEIN 30 mg/dL (Normal) UA - PH 6.0 (Normal) UA - BLOOD Negative (Normal) UA - SPECIFIC GRAVITY 1.025 (Normal) UA - KETONES Negative mg/dL (Normal) UA - BILIRUBIN Negative (Normal) UA - GLUCOSE Negative (Normal) 6-Zeb-720647:01 Metabolic Panel, Comments: PATIENT NOT FASTINGPERFORMED BY: CRISTA LabCoChilton Memorial HospitalJmdulm7970 [facility] [id number] Information: [id number] Comprehensive (83587) ALT (SGPT) 52 [iU]/L (Abnormal) Range: 0-32 AST (SGOT) 44 [iU]/L (Abnormal) Range: 0-40 Alkaline Phosphatase, S 100 [iU]/L (Normal) Range: 39-117 Bilirubin, Total 0.2 mg/dL (Normal) Range: 0.0-1.2 A/G Ratio 1.3 (Normal) Range: 1.1-2.5 Globulin, Total 2.3 g/dL (Normal) Range: 1.5-4.5 Albumin, Serum 3.1 g/dL (Abnormal) Range: 3.5-4.8 Protein, Total, Serum 5.4 g/dL (Abnormal) Range: 6.0-8.5 Calcium, Serum 8.3 mg/dL (Abnormal) Range: 8.7-10.3 Carbon Dioxide, Total 19 mmol/L (Normal) Range: 18-29 Chloride, Serum 109 mmol/L (Abnormal) Range: 97-108 Potassium, Serum 4.6 mmol/L (Normal) Range: 3.5-5.2 Sodium, Serum 144 mmol/L (Normal) Range: 134-144 BUN/Creatinine Ratio 23 (Normal) Range: 11-26 eGFR If Africn Am 23 mL/min/1.73 (Abnormal) eGFR If NonAfricn Am 20 mL/min/1.73 (Abnormal) Creatinine, Serum 2.35 mg/dL (Abnormal) Range: 0.57-1.00 BUN 54 mg/dL (Abnormal) Range: 8-27 Glucose, Serum 59 mg/dL (Abnormal) Range: 65-99 Comments: Client Requested FlagThis serum sample was in contactwith the red cells when received.This may adversely affect serumChemistries. 27-Lgt-465913:30 Metabolic Panel, Comments: PATIENT NOT FASTINGPERFORMED BY: [employer] Asenft4510 [facility] [id number] Information: [id number] Comprehensive (25884) ALT (SGPT) 9 [iU]/L (Normal) Range: 0-32 AST (SGOT) 18 [iU]/L (Normal) Range: 0-40 Alkaline Phosphatase, S 80 [iU]/L (Normal) Range: 39-117 Bilirubin, Total 0.2 mg/dL (Normal) Range: 0.0-1.2 A/G Ratio 1.5 (Normal) Range: 1.1-2.5 Globulin, Total 2.6 g/dL (Normal) Range: 1.5-4.5 Albumin, Serum 3.9 g/dL (Normal) Range: 3.5-4.8 Protein, Total, Serum 6.5 g/dL (Normal) Range: 6.0-8.5 Calcium, Serum 8.5 mg/dL (Abnormal) Range: 8.7-10.3 Carbon Dioxide, Total 23 mmol/L (Normal) Range: 18-29 Chloride, Serum 102 mmol/L (Normal) Range: 97-108 Potassium, Serum 4.5 mmol/L (Normal) Range: 3.5-5.2 Sodium, Serum 140 mmol/L (Normal) Range: 134-144 BUN/Creatinine Ratio 21 (Normal) Range: 11-26 eGFR If Africn Am 31 mL/min/1.73 (Abnormal) eGFR If NonAfricn Am 27 mL/min/1.73 (Abnormal) Creatinine, Serum 1.80 mg/dL (Abnormal) Range: 0.57-1.00 BUN 38 mg/dL (Abnormal) Range: 8-27 Glucose, Serum 98 mg/dL (Normal) Range: 65-99 22-Oct-20148:08 PT (Prothrobim Time) Comments: PATIENT NOT FASTINGPERFORMED BY: [employer] Mxplkd4786 [facility] [id number] Information: [id number] (78077) Prothrombin Time 12.6 {sec} (Abnormal) Range: 9.1-12.0 INR 1.2 (Normal) Range: 0.8-1.2 Comments: Reference interval is for non-anticoagulated patients. . Suggested INR therapeutic range for Vitamin K anta gonist therapy: Standard Dose (moderate intensity therapeutic range): 2.0 - 3.0 Higher intensity therapeutic range 2.5 - 3.5 63-Mih-225750:50 Urinalysis, Office (03643) UA - LEUKOCYTE ESTERASE Trace (Normal) UA - NITRITE Negative (Normal) URINE UROBILINGN EVY TIMED Normal mg/dL (Normal) UA - PROTEIN 100 mg/dL (Normal) UA - PH 6.0 (Normal) UA - BLOOD Non Hemolyzed Trace (Normal) UA - SPECIFIC GRAVITY 1.030 (Abnormal) UA - KETONES Negative mg/dL (Normal) UA - BILIRUBIN Negative (Normal) UA - GLUCOSE Negative (Normal) 99-Dep-836461:26 URINE CARMEN CULTURE (EVY Comments: PATIENT NOT FASTINGPERFORMED BY: Minicom Digital SignageOnslow Memorial Hospital [id number] Information: SRC:[facility] [id number] COL COUNT) (12924) Result 1 NG36 (Normal) Comments: No growth in 36 - 48 hours. Urine Culture,Comprehensive Final report (Normal) 6-Ewu-491133:08 Vitamin B-12 (cyanocobalamin) Comments: in six months (approximately); PATIENT WAS FASTINGPERFORMED BY: [employer]70 ShoprocketOnslow Memorial Hospital [id number] (73163) Vitamin B12 433 pg/mL (Normal) Range: 211-946 8-Yia-368178:08 CBC W/AUTO DIFF WBC Comments: in six months (approximately); PATIENT WAS FASTINGPERFORMED BY: [employer]70 ShoprocketOnslow Memorial Hospital [id number] Information: [id number] (42519) Immature Grans (Abs) 0.0 {x10E3/uL} (Normal) Range: 0.0-0.1 Immature Granulocytes 0 % (Normal) Baso (Absolute) 0.1 {x10E3/uL} (Normal) Range: 0.0-0.2 Eos (Absolute) 0.4 {x10E3/uL} (Normal) Range: 0.0-0.4 Monocytes(Absolute) 0.3 {x10E3/uL} (Normal) Range: 0.1-0.9 Lymphs (Absolute) 1.9 {x10E3/uL} (Normal) Range: 0.7-3.1 Neutrophils (Absolute) 2.5 {x10E3/uL} (Normal) Range: 1.4-7.0 Basos 2 % (Normal) Eos 7 % (Normal) Monocytes 7 % (Normal) Lymphs 36 % (Normal) Neutrophils 48 % (Normal) Platelets 245 {x10E3/uL} (Normal) Range: 150-379 RDW 16.0 % (Abnormal) Range: 12.3-15.4 MCHC 33.4 g/dL (Normal) Range: 31.5-35.7 MCH 31.1 pg (Normal) Range: 26.6-33.0 MCV 93 fL (Normal) Range: 79-97 Hematocrit 36.8 % (Normal) Range: 34.0-46.6 Hemoglobin 12.3 g/dL (Normal) Range: 11.1-15.9 RBC 3.96 {x10E6/uL} (Normal) Range: 3.77-5.28 WBC 5.2 {x10E3/uL} (Normal) Range: 3.4-10.8 0-Auv-700468:08 TSH (04509) Comments: in six months (approximately); PATIENT WAS FASTINGPERFORMED BY: Sales Force EuropeChilton Memorial HospitalDiexbk6796 [facility] [id number] TSH 0.802 {uIU/mL} (Normal) Range: 0.450-4.500 77-Ktg-635520:38 METABOLIC PANEL, Comments: in six months (approximately); PATIENT NOT FASTINGPERFORMED BY: RightCare SolutionsChilton Memorial HospitalEgfruh7964 [facility] [id number] Information: [id number] COMPREHENSIVE (19976) ALT (SGPT) 10 [iU]/L (Normal) Range: 0-32 AST (SGOT) 21 [iU]/L (Normal) Range: 0-40 Alkaline Phosphatase, S 83 [iU]/L (Normal) Range: 39-117 Bilirubin, Total 0.2 mg/dL (Normal) Range: 0.0-1.2 A/G Ratio 1.6 (Normal) Range: 1.1-2.5 Globulin, Total 2.7 g/dL (Normal) Range: 1.5-4.5 Albumin, Serum 4.2 g/dL (Normal) Range: 3.5-4.8 Protein, Total, Serum 6.9 g/dL (Normal) Range: 6.0-8.5 Calcium, Serum 9.8 mg/dL (Normal) Range: 8.7-10.3 Carbon Dioxide, Total 21 mmol/L (Normal) Range: 18-29 Chloride, Serum 101 mmol/L (Normal) Range: 97-108 Potassium, Serum 5.4 mmol/L (Abnormal) Range: 3.5-5.2 Sodium, Serum 142 mmol/L (Normal) Range: 134-144 BUN/Creatinine Ratio 20 (Normal) Range: 11-26 eGFR If Africn Am 33 mL/min/1.73 (Abnormal) eGFR If NonAfricn Am 28 mL/min/1.73 (Abnormal) Creatinine, Serum 1.73 mg/dL (Abnormal) Range: 0.57-1.00 BUN 34 mg/dL (Abnormal) Range: 8-27 Glucose, Serum 91 mg/dL (Normal) Range: 65-99 9-Mij-121187:08 LIPID PANEL (07701) Comments: in six months (approximately); PATIENT WAS FASTINGPERFORMED BY: [facility] Giunur0835 [facility] [id number]; apt. 04-04-15 LDL/HDL Ratio 0.8 {ratio_units} (Normal) Range: 0.0-3.2 Comments: LDL/HDL Ratio Men Women 1/2 Avg.Risk 1.0 1.5 Av g.Risk 3.6 3.2 2X Avg.Risk 6.2 5.0 3X Avg.Risk 8.0 6.1 LDL Cholesterol Calc 73 mg/dL (Normal) Range: 0-99 VLDL Cholesterol Alesha 41 mg/dL (Abnormal) Range: 5-40 HDL Cholesterol 91 mg/dL (Normal) Comments: According to ATP-III Guidelines, HDL-C >59 mg/dL is considered anegative risk factor for CHD. Triglycerides 203 mg/dL (Abnormal) Range: 0-149 Cholesterol, Total 205 mg/dL (Abnormal) Range: 100-199 1-Pbv-146305:08 PT (Prothrobim Time) (65953) Comments: today; PATIENT WAS FASTINGPERFORMED BY: [employer] Jgdyht4561 [facility] [id number]; inr not need addressed patient on Eliq[employer] Prothrombin Time 11.0 {sec} (Normal) Range: 9.1-12.0 INR 1.1 (Normal) Range: 0.8-1.2 Comments: Reference interval is for non-anticoagulated patients. . Suggested INR therapeutic range for Vitamin K anta gonist therapy: Standard Dose (moderate intensity therapeutic range): 2.0 - 3.0 Higher intensity therapeutic range 2.5 - 3.5 0-Pjq-877294:08 POTASSIUM SERUM (30679) Comments: today; PATIENT WAS FASTINGPERFORMED BY: [employer]70 [facility] [id number] Potassium, Serum 4.4 mmol/L (Normal) Range: 3.5-5.2 90-Bek-83216:41 Comp. Metabolic Panel (14) Comments: PATIENT NOT FASTINGPERFORMED BY: [employer] Ldmahi4691 [facility] [id number] Information: [id number] DIFFICULT D RAW ALT (SGPT) 10 [iU]/L (Normal) Range: 0-32 AST (SGOT) 22 [iU]/L (Normal) Range: 0-40 Alkaline Phosphatase, S 93 [iU]/L (Normal) Range: 39-117 Bilirubin, Total 0.2 mg/dL (Normal) Range: 0.0-1.2 A/G Ratio 1.5 (Normal) Range: 1.1-2.5 Globulin, Total 2.5 g/dL (Normal) Range: 1.5-4.5 Albumin, Serum 3.7 g/dL (Normal) Range: 3.5-4.8 Protein, Total, Serum 6.2 g/dL (Normal) Range: 6.0-8.5 Calcium, Serum 8.7 mg/dL (Normal) Range: 8.7-10.3 Carbon Dioxide, Total 20 mmol/L (Normal) Range: 18-29 Chloride, Serum 102 mmol/L (Normal) Range: 97-108 Potassium, Serum 5.3 mmol/L (Abnormal) Range: 3.5-5.2 Sodium, Serum 139 mmol/L (Normal) Range: 134-144 BUN/Creatinine Ratio 17 (Normal) Range: 11-26 eGFR If Africn Am 46 mL/min/1.73 (Abnormal) eGFR If NonAfricn Am 39 mL/min/1.73 (Abnormal) Creatinine, Serum 1.32 mg/dL (Abnormal) Range: 0.57-1.00 BUN 23 mg/dL (Normal) Range: 8-27 Glucose, Serum 85 mg/dL (Normal) Range: 65-99 :41 Microscopic Examination Comments: PATIENT NOT FASTINGPERFORMED BY: Minicom Digital SignageOnslow [facility] Hospital [id number] Bacteria Few (Normal) Mucus Threads Present (Normal) Epithelial Cells (non renal) 0-10 {/hpf} (Normal) Range: 0 - 10 RBC 0-2 {/hpf} (Normal) Range: 0 - 2 WBC >30 {/hpf} (Abnormal) Range: 0 - 5 :41 Urinalysis, Complete Comments: PATIENT NOT FASTINGPERFORMED BY: Minicom Digital SignageOnslow [facility] Hospital [id number] Microscopic Examination See below: (Normal) Comments: Microscopic was indicated and was performed. Nitrite, Urine Negative (Normal) Urobilinogen,Semi-Qn 0.2 mg/dL (Normal) Range: 0.0-1.9 Bilirubin Negative (Normal) Occult Blood Negative (Normal) Ketones Negative (Normal) Glucose Negative (Normal) Protein Trace (Normal) WBC Esterase 2+ (Abnormal) Appearance Cloudy (Abnormal) Urine-Color Yellow (Normal) pH 6.0 (Normal) Range: 5.0-7.5 Specific [place] 1.015 (Normal) Range: 1.005-1.030 22-Jji-988281:49 Prothrombin Time (PT) Comments: PATIENT NOT FASTINGPERFORMED BY: [employer] CoinfloorOnslow Memorial Hospital [id number] Information: [id number] Prothrombin Time 28.9 {sec} (Abnormal) Range: 9.1-12.0 INR 2.7 (Abnormal) Range: 0.8-1.2 Comments: Reference interval is for non-anticoagulated patients. . Suggested INR therapeutic range for Vitamin K anta gonist therapy: Standard Dose (moderate intensity therapeutic range): 2.0 - 3.0 Higher intensity therapeutic range 2.5 - 3.5 06-Sgt-080324:49 Prothrombin Time (PT) Comments: PATIENT NOT FASTINGPERFORMED BY: [address] [id number] Information: [id number] Prothrombin Time 31.0 {sec} (Abnormal) Range: 9.1-12.0 INR 2.8 (Abnormal) Range: 0.8-1.2 Comments: Reference interval is for non-anticoagulated patients. . Suggested INR therapeutic range for Vitamin K anta gonist therapy: Standard Dose (moderate intensity therapeutic range): 2.0 - 3.0 Higher intensity therapeutic range 2.5 - 3.5 73-Nuy-194730:28 Eosinophil, Urine (31104) Comments: PATIENT NOT FASTINGPERFORMED BY: [address] [id number] Information: [id number] Eosinophil, Urine No Eosinophils Seen % Comments: <5% few or none seenReceived at room temperature;interpret result with caution. (Normal) :28 Eosinophil, Urine (83223) Comments: PATIENT NOT FASTINGPERFORMED BY: [address] [id number] Information: [id number] Eosinophil, Urine No Eosinophils Seen % Comments: <5% few or none seenReceived at room temperature;interpret result with caution. (Normal) :54 Basic Metabolic Profile (BMP) Comments: Test performed at:[facility] [address]dptps[address]aw[address] [place] [address] GAP 5 (Normal) Range: 5-15 CO2 27.0 mmol/L (Normal) Range: 21.0-32.0 CL 107 mmol/L (Normal) Range: 98-107 K 4.8 mmol/L (Normal) Range: 3.5-5.1 NA 139 mmol/L (Normal) Range: 136-145 CA 8.2 mg/dL (Abnormal) Range: 8.5-10.1 BUN/CRE 15.4 {RATIO} (Normal) Range: 10-20 CREAT,SERUM 1.3 mg/dL (Abnormal) Range: 0.6-1.0 BUN 20 mg/dL (Abnormal) Range: 7-18 GLU 85 mg/dL (Normal) Range: 70-110 :54 Microalb:Creat Ratio,Random UR Comments: Test performed at:[facility] [address] [place] [address] MALB:CREAT 44.5 {mg/g_CRE} (Abnormal) MICROALBUMIN,UR 52.7 mg/L (Normal) UR CREAT 118.2 mg/dL (Normal) :54 Urinalysis, Routine (Dipstick) Comments: How was Urine Obtained? CLEAN CATCHTest performed at:[facility] [address] [place] [address] LEUK ESTERASE 100 /ul (Abnormal) OCCULT BLOOD-UR 10 /ul (Abnormal) NITRITE UR Negative (Normal) UROBILI Normal mg/dL (Normal) PROT DIPSTX 15 mg/dL (Abnormal) pH UR 5.0 (Normal) Range: 5.0 - 8.0 SP.GR. DIPSTX 1.020 (Normal) Range: 1.002-1.030 KETONE UR Negative mg/dL (Normal) BILIRUBIN URINE Negative mg/dL (Normal) GLUCOSE, UR Normal mg/dL (Normal) CLARITY Sl. Cloudy (Normal) COLOR Yellow (Normal) :07 Eosinophil, Urine (05309) Comments: PATIENT NOT FASTINGPERFORMED BY: LabCoChilton Memorial HospitalHmfbuy7285 Anand [facility] [id number] Information: [id number] Eosinophil, Urine 5 % (Normal) Comments: <5% few or none seenReceived at room temperature;interpret result with caution. 88-Vls-603817:10 MICROALBUMIN: CREATININE RATIO Comments: recheck in 6 weeks; PATIENT NOT FASTINGPERFORMED BY: [employer] Vpfygd7241 [facility] [id number] (65267) AND (64431) Microalb/Creat Ratio 92.2 {mg/g_creat} (Abnormal) Range: 0.0-30.0 Microalbumin, Urine 180.9 ug/mL (Abnormal) Range: 0.0-17.0 Creatinine, Urine 196.2 mg/dL (Normal) Range: 15.0-278.0 15-Kgw-585969:10 Metabolic Panel, Basic Comments: recheck in 6 weeks; PATIENT NOT FASTINGPERFORMED BY: CrowdFanaticCedar County [facility] Hospital Qzyncq4814 [facility] [id number] Information: [id number] (03737) Calcium, Serum 9.2 mg/dL (Normal) Range: 8.7-10.3 Carbon Dioxide, Total 20 mmol/L (Normal) Range: 18-29 Chloride, Serum 99 mmol/L (Normal) Range: 97-108 Potassium, Serum 4.4 mmol/L (Normal) Range: 3.5-5.2 Sodium, Serum 138 mmol/L (Normal) Range: 134-144 BUN/Creatinine Ratio 20 (Normal) Range: 11-26 eGFR If Africn Am 30 mL/min/1.73 (Abnormal) eGFR If NonAfricn Am 26 mL/min/1.73 (Abnormal) Creatinine, Serum 1.88 mg/dL (Abnormal) Range: 0.57-1.00 BUN 38 mg/dL (Abnormal) Range: 8-27 Glucose, Serum 89 mg/dL (Normal) Range: 65-99 2-Qzw-616082:21 CALCIFIDIOL (26582) VIT D 25 Comments: PATIENT NOT FASTINGPERFORMED BY: CrowdFanaticHenry Ford [facility] Hospital6370 [facility] [id number] Vitamin D, 25-Hydroxy 35.5 ng/mL (Normal) Range: 30.0-100.0 Comments: Vitamin D deficiency has been defined by the [place] ofMedicine and an Endocrine Society practice guideline as alevel of serum 25-OH vitamin D less than 20 ng/mL (1,2).The Endocrine Society went on to further define vitamin Dinsufficiency as a level between 21 and 29 ng/mL (2).1. IOM ([place] of Medicine). 2010. Dietary reference intakes for calcium and D. [place]: The National Academies Press.2. Justin MF, Jazmyn FOSTER, Aniya CANO, et al. Evaluation, treatment, and prevention of vitamin D deficiency: an Endocrine Society clinical practice guideline. JCEM. 2010; 96(7):1911-30. :22 Total Protein,24 Hour Urine Comments: PATIENT NOT FASTINGPERFORMED BY: [employer]70 ShoprocketOnslow Memorial Hospital [id number] (16957) Prot,24hr calculated 196.5 {mg/24_hr} (Abnormal) Range: 30.0-150.0 Protein,Total,Urine 39.3 mg/dL (Abnormal) Range: 0.0-15.0 :22 CREATININE CLEARANCE Comments: PATIENT NOT FASTINGPERFORMED BY: [employer]70 Anand [facility] [id number] Information: SRC:UR [id number] START- 4@630AM YOHAN Peres (47254) Creatinine Clearance 29 mL/min (Abnormal) Range: 88-128 Comments: The above range is based on 1.73 square meter average body surfacearea. Creatinine, Ur 24hr 544.0 {mg/24_hr} (Abnormal) Range: 800.0-1800.0 Creatinine, Urine 108.8 mg/dL (Normal) Range: 15.0-278.0 eGFR If Africn Am 46 mL/min/1.73 (Abnormal) eGFR If NonAfricn Am 40 mL/min/1.73 (Abnormal) Creatinine, Serum 1.31 mg/dL (Abnormal) Range: 0.57-1.00 :21 PT (Prothrobim Time) Comments: standing order; PATIENT NOT FASTINGPERFORMED BY: [employer]70 [facility]andSullivan [facility] Hospital [id number] Information: [id number] (74623) Prothrombin Time 26.3 {sec} (Abnormal) Range: 9.1-12.0 INR 2.4 (Abnormal) Range: 0.8-1.2 Comments: Reference interval is for non-anticoagulated patients. . Suggested INR therapeutic range for Vitamin K anta gonist therapy: Standard Dose (moderate intensity therapeutic range): 2.0 - 3.0 Higher intensity therapeutic range 2.5 - 3.5 46-Yaj-985903:36 Request Problem Comments: PATIENT NOT FASTINGPERFORMED BY: [facility] Wgibut2205 Anand RoadDublin [place] [id number] 14-Qmz-440562:23 Vitamin B-12 (cyanocobalamin) Comments: PATIENT NOT FASTINGPERFORMED BY: [facility] Qupguq4568 [facility] [place] [id number] (43144) 81-Zoe-064968:23 TSH (81646) Comments: PATIENT NOT FASTINGPERFORMED BY: [facility] Rviznk1699 Anand [facility] HospitalDublin [place] [id number] 70-Cqt-739505:23 PT (Prothrobim Time) (93193) Comments: INR standing order do today also; PATIENT NOT FASTINGPERFORMED BY: [facility] Lscmvm7416 Anand [facility] [place] [id number] INR 1.8 (Abnormal) Range: 0.8-1.2 Comments: Reference interval is for non-anticoagulated patients. . Suggested INR therapeutic range for Vitamin K anta gonist therapy: Standard Dose (moderate intensity therapeutic range): 2.0 - 3.0 Higher intensity therapeutic range 2.5 - 3.5 Prothrombin Time 18.4 {sec} (Abnormal) Range: 9.1-12.0 00-Qtk-457834:23 METABOLIC PANEL, COMPREHENSIVE Comments: PATIENT NOT FASTINGPERFORMED BY: [facility] Fobikk9193 Anand [facility]in [place] [id number] (83346) ALT (SGPT) 13 [iU]/L (Normal) Range: 0-32 AST (SGOT) 28 [iU]/L (Normal) Range: 0-40 Alkaline Phosphatase, S 93 [iU]/L (Normal) Range: 39-117 Bilirubin, Total 0.2 mg/dL (Normal) Range: 0.0-1.2 A/G Ratio 1.6 (Normal) Range: 1.1-2.5 Globulin, Total 2.7 g/dL (Normal) Range: 1.5-4.5 Albumin, Serum 4.2 g/dL (Normal) Range: 3.5-4.8 Protein, Total, Serum 6.9 g/dL (Normal) Range: 6.0-8.5 Calcium, Serum 9.4 mg/dL (Normal) Range: 8.6-10.2 Carbon Dioxide, Total 23 mmol/L (Normal) Range: 19-28 Chloride, Serum 104 mmol/L (Normal) Range: 97-108 Potassium, Serum 4.7 mmol/L (Normal) Range: 3.5-5.2 Sodium, Serum 145 mmol/L (Abnormal) Range: 134-144 BUN/Creatinine Ratio 18 (Normal) Range: 11-26 eGFR If Africn Am 53 mL/min/1.73 (Abnormal) eGFR If NonAfricn Am 46 mL/min/1.73 (Abnormal) Creatinine, Serum 1.18 mg/dL (Abnormal) Range: 0.57-1.00 BUN 21 mg/dL (Normal) Range: 8-27 Glucose, Serum 75 mg/dL (Normal) Range: 65-99 37-Jra-314144:23 LIPID PANEL (00874) Comments: PATIENT NOT FASTINGPERFORMED BY: [employer]70 Anand [facility] [id number] LDL/HDL Ratio 1.1 {ratio_units} (Normal) Range: 0.0-3.2 LDL Cholesterol Calc 92 mg/dL (Normal) Range: 0-99 HDL Cholesterol 82 mg/dL (Normal) Comments: According to ATP-III Guidelines, HDL-C >59 mg/dL is considered anegative risk factor for CHD. VLDL Cholesterol Alesha 38 mg/dL (Normal) Range: 5-40 Cholesterol, Total 212 mg/dL (Abnormal) Range: 100-199 Triglycerides 192 mg/dL (Abnormal) Range: 0-149 76-Cdk-098429:23 CBC WITH MANUAL DIFF Comments: PATIENT NOT FASTINGPERFORMED BY: [employer] EuropeSocorro General HospitalQgokco6057 [facility] [id number] Information: [id number] ([id number]) Immature Grans (Abs) 0.0 {x10E3/uL} (Normal) Range: 0.0-0.1 Immature Granulocytes 0 % (Normal) Range: 0-2 Baso (Absolute) 0.1 {x10E3/uL} (Normal) Range: 0.0-0.2 Eos (Absolute) 0.3 {x10E3/uL} (Normal) Range: 0.0-0.4 Monocytes(Absolute) 0.5 {x10E3/uL} (Normal) Range: 0.1-0.9 Lymphs (Absolute) 2.0 {x10E3/uL} (Normal) Range: 0.7-3.1 Neutrophils (Absolute) 3.7 {x10E3/uL} (Normal) Range: 1.4-7.0 Basos 1 % (Normal) Range: 0-3 Eos 5 % (Normal) Range: 0-5 Monocytes 7 % (Normal) Range: 4-12 Lymphs 31 % (Normal) Range: 14-46 Neutrophils 56 % (Normal) Range: 40-74 Platelets 288 {x10E3/uL} (Normal) Range: 155-379 RDW 15.6 % (Abnormal) Range: 12.3-15.4 MCHC 32.4 g/dL (Normal) Range: 31.5-35.7 MCH 31.0 pg (Normal) Range: 26.6-33.0 MCV 96 fL (Normal) Range: 79-97 Hematocrit 41.0 % (Normal) Range: 34.0-46.6 Hemoglobin 13.3 g/dL (Normal) Range: 11.1-15.9 RBC 4.29 {x10E6/uL} (Normal) Range: 3.77-5.28 WBC 6.5 {x10E3/uL} (Normal) Range: 3.4-10.8 [id number] Sed Rate Erythrocyte ([id number]) Comments: PATIENT NOT FASTINGPERFORMED BY: [facility]CoCh[facility] [id number] [facility] [id number] Sedimentation Rate-Westergren 16 mm/h (Normal) Range: 0-40 [id number] CBC with manual diff Comments: recheck in 4 weeks; PATIENT NOT FASTINGPERFORMED BY: [facility] Ioozuc1713 [facility] [id number] Information: ADD [id number] AND DRAW FEE 99 1940 (30889) Immature Grans (Abs) 0.0 {x10E3/uL} (Normal) Range: 0.0-0.1 Immature Granulocytes 0 % (Normal) Range: 0-2 Baso (Absolute) 0.0 {x10E3/uL} (Normal) Range: 0.0-0.2 Eos (Absolute) 0.3 {x10E3/uL} (Normal) Range: 0.0-0.4 Monocytes(Absolute) 0.7 {x10E3/uL} (Normal) Range: 0.1-0.9 Lymphs (Absolute) 2.1 {x10E3/uL} (Normal) Range: 0.7-3.1 Neutrophils (Absolute) 7.4 {x10E3/uL} (Abnormal) Range: 1.4-7.0 Basos 0 % (Normal) Range: 0-3 Eos 3 % (Normal) Range: 0-5 Monocytes 6 % (Normal) Range: 4-12 Lymphs 20 % (Normal) Range: 14-46 Neutrophils 71 % (Normal) Range: 40-74 Platelets 277 {x10E3/uL} (Normal) Range: 155-379 RDW 15.6 % (Abnormal) Range: 12.3-15.4 MCHC 32.5 g/dL (Normal) Range: 31.5-35.7 MCH 30.5 pg (Normal) Range: 26.6-33.0 MCV 94 fL (Normal) Range: 79-97 Hematocrit 37.9 % (Normal) Range: 34.0-46.6 Hemoglobin 12.3 g/dL (Normal) Range: 11.1-15.9 RBC 4.03 {x10E6/uL} (Normal) Range: 3.77-5.28 WBC 10.5 {x10E3/uL} (Normal) Range: 3.4-10.8 :50 Sed Rate Erythrocyte (41347) Comments: re check in 4 weeks; PATIENT NOT FASTINGPERFORMED BY: [facility] HospitalJyopmb5632 [facility] [id number] Sedimentation Rate-Westergren 39 mm/h (Normal) Range: 0-40 :48 PREALBUMIN (02672) Comments: PATIENT NOT FASTINGPERFORMED BY: [facility]6370 [facility] [id number] Prealbumin 23 mg/dL (Normal) Range: 20-40 :48 Magnesium (19223) Comments: PATIENT NOT FASTINGPERFORMED BY: [facility]6370 [facility] [id number] Magnesium, Serum 1.8 mg/dL (Normal) Range: 1.6-2.6 :48 Metabolic Panel, Comments: PATIENT NOT FASTINGPERFORMED BY: [facility]6370 [facility] [id number] Information: [id number] [facility] (52010) ALT (SGPT) 12 [iU]/L (Normal) Range: 0-32 AST (SGOT) 22 [iU]/L (Normal) Range: 0-40 Alkaline Phosphatase, S 107 [iU]/L (Normal) Range: 25-165 Bilirubin, Total 0.3 mg/dL (Normal) Range: 0.0-1.2 A/G Ratio 1.3 (Normal) Range: 1.1-2.5 Globulin, Total 3.0 g/dL (Normal) Range: 1.5-4.5 Albumin, Serum 4.0 g/dL (Normal) Range: 3.5-4.8 Protein, Total, Serum 7.0 g/dL (Normal) Range: 6.0-8.5 Calcium, Serum 9.8 mg/dL (Normal) Range: 8.6-10.2 Carbon Dioxide, Total 21 mmol/L (Normal) Range: 19-28 Comments: Please note reference interval change Chloride, Serum 105 mmol/L (Normal) Range: 97-108 Potassium, Serum 4.6 mmol/L (Normal) Range: 3.5-5.2 Sodium, Serum 139 mmol/L (Normal) Range: 134-144 BUN/Creatinine Ratio 19 (Normal) Range: 11-26 eGFR If Africn Am 50 mL/min/1.73 (Abnormal) eGFR If NonAfricn Am 44 mL/min/1.73 (Abnormal) Creatinine, Serum 1.23 mg/dL (Abnormal) Range: 0.57-1.00 BUN 23 mg/dL (Normal) Range: 8-27 Glucose, Serum 86 mg/dL (Normal) Range: 65-99 89-Ilp-160533:15 CBC With Differential/Platelet Comments: PATIENT WAS FASTINGPERFORMED BY: CB [facility] Eybdnr7361 [place] [id number] BY: BN [facility] Tqxsvpadbn8567 [facility] [id number] Immature Grans (Abs) 0.0 {x10E3/uL} (Normal) Range: 0.0-0.1 Immature Granulocytes 0 % (Normal) Range: 0-2 Baso (Absolute) 0.1 {x10E3/uL} (Normal) Range: 0.0-0.2 Eos (Absolute) 0.2 {x10E3/uL} (Normal) Range: 0.0-0.4 Monocytes(Absolute) 0.5 {x10E3/uL} (Normal) Range: 0.1-1.0 Lymphs (Absolute) 1.9 {x10E3/uL} (Normal) Range: 0.7-4.5 Neutrophils (Absolute) 3.2 {x10E3/uL} (Normal) Range: 1.8-7.8 Basos 2 % (Normal) Range: 0-3 Eos 3 % (Normal) Range: 0-7 Monocytes 8 % (Normal) Range: 4-13 Lymphs 32 % (Normal) Range: 14-46 Neutrophils 55 % (Normal) Range: 40-74 Platelets 360 {x10E3/uL} (Normal) Range: 140-415 RDW 17.9 % (Abnormal) Range: 12.3-15.4 MCHC 32.9 g/dL (Normal) Range: 31.5-35.7 MCH 31.1 pg (Normal) Range: 26.6-33.0 MCV 95 fL (Normal) Range: 79-97 Hematocrit 34.3 % (Normal) Range: 34.0-46.6 Hemoglobin 11.3 g/dL (Normal) Range: 11.1-15.9 RBC 3.63 {x10E6/uL} (Abnormal) Range: 3.77-5.28 WBC 5.9 {x10E3/uL} (Normal) Range: 4.0-10.5 76-Jhh-104665:15 Comp. Metabolic Panel Comments: PATIENT WAS FASTINGPERFORMED BY: [employer] EuropeChilton Memorial HospitalTmnbrc3637 [facility] [id number] BY: [employer] [id number] (14) ALT (SGPT) 7 [iU]/L (Normal) Range: 0-32 AST (SGOT) 13 [iU]/L (Normal) Range: 0-40 Alkaline Phosphatase, 91 [iU]/L (Normal) Range: 25-165 S Bilirubin, Total 0.4 mg/dL (Normal) Range: 0.0-1.2 A/G Ratio 1.5 (Normal) Range: 1.1-2.5 Globulin, Total 2.6 g/dL (Normal) Range: 1.5-4.5 Albumin, Serum 3.9 g/dL (Normal) Range: 3.5-4.8 Calcium, Serum 9.3 mg/dL (Normal) Range: 8.6-10.2 Protein, Total, Serum 6.5 g/dL (Normal) Range: 6.0-8.5 Carbon Dioxide, Total 22 mmol/L (Normal) Range: 20-32 Chloride, Serum 105 mmol/L (Normal) Range: 97-108 Potassium, Serum 4.4 mmol/L (Normal) Range: 3.5-5.2 Sodium, Serum 141 mmol/L (Normal) Range: 134-144 BUN/Creatinine Ratio 21 (Normal) Range: 11-26 eGFR If Africn Am 53 mL/min/1.73 (Abnormal) eGFR If NonAfricn Am 46 mL/min/1.73 (Abnormal) BUN 25 mg/dL (Normal) Range: 8-27 Creatinine, Serum 1.18 mg/dL Range: 0.57-1.00 (Abnormal) Glucose, Serum 88 mg/dL (Normal) Range: 65-99 Homocyst(e)ine, 16.5 umol/L Comments: PATIENT WAS FASTINGPERFORMED BY: [employer] [facility] EuropeChilton Memorial HospitalWlwper1013 [facility] [id number] BY: [address] [id number] :15 Plasma (Abnormal) Range: 0.0-15.0 01-Jkb-277482:15 Lipid Panel With LDL/HDL Comments: PATIENT WAS FASTINGPERFORMED BY: RightCare SolutionsScott [place] 3613370 [facility] [id number] BY: [address] [id number] Ratio LDL/HDL Ratio 0.7 {ratio_units} Range: 0.0-3.2 (Normal) LDL Cholesterol Calc 66 mg/dL (Normal) Range: 0-99 VLDL Cholesterol Alesha 17 mg/dL (Normal) Range: 5-40 HDL Cholesterol 89 mg/dL (Normal) Comments: According to ATP-III Guidelines, HDL-C >59 mg/dL is considered anegative risk factor for CHD. Triglycerides 87 mg/dL (Normal) Range: 0-149 Cholesterol, Total 172 mg/dL (Normal) Range: 100-199 Methylmalonic Acid, 184 nmol/L (Normal) Comments: PATIENT WAS FASTINGPERFORMED BY: RightCare SolutionsScott [place] 3613370 [facility] [id number] BY: [address] [id number] 310:15 Serum Range: 73-376 Comments: The reference range for methylmalonic acid has been set at +3sd abovethe mean for healthy blood bank donors. In the clinical assessment ofpatients with megaloblastic anemias a cutoff of +3sd provides gr eaterspecificity in the diagnosis of the vitamin deficiency states,despite the sacrifice of some sensitivity. 70-Sof-676632:15 Prothrombin Time (PT) Comments: PATIENT WAS FASTINGPERFORMED BY: [place] [address] [facility] [id number] BY: [address] [id number] Prothrombin Time 20.5 {sec} (Abnormal) Range: 9.1-12.0 INR 2.0 (Abnormal) Range: 0.8-1.2 Comments: Reference interval is for non-anticoagulated patients. . Suggested INR therapeutic range for Vitamin K anta gonist therapy: Standard Dose (moderate intensity therapeutic range): 2.0 - 3.0 Higher intensity therapeutic range 2.5 - 3.5 TSH 0.706 {uIU/mL} Comments: PATIENT WAS FASTINGPERFORMED BY: RightCare SolutionsScott [place] [address]13370 [facility] [id number] BY: [address] [id number] :15 (Normal) Range: 0.450-4.500 :15 Vitamin B12 and Folate Comments: PATIENT WAS FASTINGPERFORMED BY: LabJasmin Ville 0684770 [facility] [id number] BY: [address] [id number] Folate (Folic Acid), >19.9 ng/mL (Normal) Comments: A serum folate concentration of less than 3.1 ng/mL isconsidered to represent clinical deficiency. Serum Vitamin B12 561 pg/mL (Normal) Range: 211-946 Vitamin D, 49.7 ng/mL (Normal) Comments: PATIENT WAS FASTINGPERFORMED BY: RightCare SolutionsChilton Memorial HospitalAegioe7977 [facility] [id number] BY: [address] [id number] :15 25-Hydroxy Range: 30.0-100.0 Comments: Vitamin D deficiency has been defined by the [place] of[place]icine and an Endocrine Society practice guideline as alevel of serum 25-OH vitamin D less than 20 ng/mL (1,2).The Endocrine Society went on to further define vitamin Dinsufficiency as a level between 21 and 29 ng/mL (2).1. IOM ([place] of Medicine). 2010. Dietary reference intakes for calcium and D. [place]: The National Academies Press.2. Justin MF, Jazmyn FOSTER, Aniya CANO, et al. Evaluation, treatment, and prevention of vitamin D deficiency: an Endocrine Society clinical practice guideline. JCEM. 2010; 96(7):1911-30. 94-Smi-862508:20 PT (Prothrobim Time) (51319) Comments: standing order; PATIENT NOT FASTINGPERFORMED BY: Yappe6370 [facility] [id number] Prothrombin Time 28.6 {sec} (Abnormal) Range: 9.1-12.0 INR 2.8 (Abnormal) Range: 0.8-1.2 Comments: Reference interval is for non-anticoagulated patients. . Suggested INR therapeutic range for Vitamin K anta gonist therapy: Standard Dose (moderate intensity therapeutic range): 2.0 - 3.0 Higher intensity therapeutic range 2.5 - 3.5 52-Iju-482857:30 CBC With Differential/Platelet Comments: PERFORMED BY: Crowdery6370 [facility] [id number] BY: LabHypereightBarbara Ville 074497 [facility] [id number] Information: PER [facility] 03-07-12 RANDOM U Immature Grans (Abs) 0.0 {x10E3/uL} (Normal) Range: 0.0-0.1 Immature Granulocytes 0 % (Normal) Range: 0-2 Baso (Absolute) 0.1 {x10E3/uL} (Normal) Range: 0.0-0.2 Eos (Absolute) 0.2 {x10E3/uL} (Normal) Range: 0.0-0.4 Monocytes(Absolute) 0.5 {x10E3/uL} (Normal) Range: 0.1-1.0 Lymphs (Absolute) 1.7 {x10E3/uL} (Normal) Range: 0.7-4.5 Neutrophils (Absolute) 6.5 {x10E3/uL} (Normal) Range: 1.8-7.8 Basos 1 % (Normal) Range: 0-3 Eos 2 % (Normal) Range: 0-7 Monocytes 6 % (Normal) Range: 4-13 Lymphs 19 % (Normal) Range: 14-46 Neutrophils 72 % (Normal) Range: 40-74 Platelets 216 {x10E3/uL} (Normal) Range: 140-415 RDW 15.1 % (Normal) Range: 12.3-15.4 MCHC 34.0 g/dL (Normal) Range: 31.5-35.7 MCH 30.6 pg (Normal) Range: 26.6-33.0 MCV 90 fL (Normal) Range: 79-97 Hematocrit 41.2 % (Normal) Range: 34.0-46.6 Hemoglobin 14.0 g/dL (Normal) Range: 11.1-15.9 RBC 4.57 {x10E6/uL} (Normal) Range: 3.77-5.28 WBC 9.1 {x10E3/uL} (Normal) Range: 4.0-10.5 08-Wfx-475309:30 Chromium, Urine Comments: PERFORMED BY: [employer] Yfudxe8192 [facility] [id number] BY: [address] [id number] Chromium/Creat Ratio 0.2 {ug/g_creat} Range: 0.0-4.9 (Normal) Comments: Environmental Exposure: 0.0 - 4.9 Occupational Exposure: RAEGAN 25.0 Chromium, Urine 0.3 ug/L (Normal) Range: 0.1-2.0 Comments: Detection Limit = 0.10 Ferritin, Serum 64 ng/mL (Normal) Comments: PERFORMED BY: Add[place]6370 [facility] [id number] BY: [address] [id number] 214:30 Range: 13-150 Homocyst(e)ine, Plasma 32.2 umol/L Comments: PERFORMED BY: Joognu [facility] [id number] BY: [address] [id number] 214:30 (Abnormal) Range: 0.0-15.0 Iron, Serum 38 ug/dL (Normal) Comments: PERFORMED BY: [employer] Vdzwdu[address] [place] [address] [id number] BY: [address] [id number] 214:30 Range: 35-155 Magnesium, Serum 1.8 mg/dL (Normal) Comments: PERFORMED BY: [employer] Jdsrwm0237 Anand RoadDublin [place] [id number] BY: [address] [id number] 214:30 Range: 1.6-2.6 20-Feb- Methylmalonic Acid, 525 nmol/L (Abnormal) Comments: PERFORMED BY: [employer] Czylrn9611 Anand RoadDublin [place] [id number] BY: [address] [id number] 214:30 Serum Range: 73-376 Comments: Verified by repeat analysisThe reference range for methylmalonic acid has been set at +3sd abovethe mean for healthy blood bank donors. In the clinical assessment ofpatients with megaloblastic anemi as a cutoff of +3sd provides greaterspecificity in the diagnosis of the vitamin deficiency states,despite the sacrifice of some sensitivity. Phosphorus, Serum 3.6 mg/dL (Normal) Comments: PERFORMED BY: [employer] Rxlzsi2217 Anand RoadDublin [place] [id number] BY: [address] [id number] 214:30 Range: 2.5-4.5 PTH, Intact 32 pg/mL (Normal) Comments: PERFORMED BY: [employer] Uohcmg5269 Anand RoadDublin [place] [id number] BY: [address] [id number] 214:30 Range: 15-65 20-Feb- Sedimentation 21 mm/h (Normal) Comments: PERFORMED BY: [employer] Weksfk1526 Anand RoadDublin [place] [id number] BY: [address] [id number] 214:30 Rate-Westergren Range: 0-40 20-Feb- Vitamin A, Serum 88 ug/dL (Abnormal) Comments: PERFORMED BY: [employer] Ftjzub8356 Anand RoadDublin [place] [id number] BY: [address] [id number] 214:30 Range: 18-77 :30 Vitamin B12 and Folate Comments: PERFORMED BY: [place] [address]270 [facility] [id number] BY: [address] [id number] Folate (Folic Acid), >19.9 ng/mL (Normal) Comments: A serum folate concentration of less than 3.1 ng/mL isconsidered to represent clinical deficiency. Serum Vitamin B12 326 pg/mL (Normal) Range: 211-946 Vitamin D, 21.0 ng/mL Comments: PERFORMED BY: [place] [address]22270 [facility] [id number] BY: [address] [id number] :30 25-Hydroxy (Abnormal) Range: 30.0-100.0 Comments: Vitamin D deficiency has been defined by the [place] ofMedicine and an Endocrine Society practice guideline as alevel of serum 25-OH vitamin D less than 20 ng/mL (1,2).The Endocrine Society went on to further define vitamin Dinsufficiency as a level between 21 and 29 ng/mL (2).1. IOM ([place] of Medicine). 2010. Dietary reference intakes for calcium and D. [place]: The National Academies Press.2. Justin MF, Jazmyn FOSTER, Aniya CANO, et al. Evaluation, treatment, and prevention of vitamin D deficiency: an Endocrine Society clinical practice guideline. JCEM. 2010; 96(7):1911-30. :30 Zinc, Urine Comments: PERFORMED BY: [place] [address]270 [facility] [id number] BY: [address] [id number] Zinc/Creat. Ratio 497 {ug/g_creat} (Normal) Range: 100-900 Creatinine(Sagger Filler),U 1.95 g/L (Normal) Range: 0.30-3.00 Comments: Detection Limit = 0.10 Zinc, Urine 970 ug/L (Normal) Comments: Detection Limit = 10 32-Lzr-01348:19 ABDOMEN/PELVIS WITH CONTRAST Radiology Report See Note (Normal) Comments: PROCEDURE: CT ABDOMEN AND PELVIS WITH CONTRAST REASON FOR EXAM: Female, 71 years old. Crohn's disease, fistula RADIATION DOSAGE (If Supplied By Facility): CTDIvol = ( 12 ) mGy, DLP =(764 ) mGycm TE CHNIQUE: Transaxial images were obtained from the dome of thediaphragmto the symphysis pubis with oral contrast. 75 ml of Isovue 370 contrastwas administered. COMPARISON: None. FINDINGS:The visuali zed lung bases are unremarkable. Normal enhanced liver. Status post cholecystectomy. No significantdilatation of the extrahepatic biliary system. There are two enhancingnodules of the spleen measurin g 3 and 6-mm. Normal pancreas. Normal bilateral adrenal glands. Normal size of the right kidney. There are cysts, largest being 1.2-cm.There are no right renal calculi. There is no right hydronephros is.Normal visualized right ureter. Normal size of the left kidney. There are cysts, largest being 1.5-cm.There are no left renal calculi. There is no left hydronephrosis.Normalvisualized left ureter. Normal visualized stomach. Air fluid levels of the small intestine,possibly an ileus. There is a right -sided colostomy. The appendix isnotvisualized. There is no demonstrated peritoneal fluid. Calci fied abdominal aorta. Normal inferior vena cava. Small nodes oftheretroperitoneum. Normal urinary bladder. There is presacral soft tissue density. Thereisno pelvic fluid. Left-sided hernia of the an terior abdominal wall containing bowel loops.Normal osseous structures. IMPRESSION:Multiple cysts of the kidneys.Enhancing small nodules of the spleen.Mild ileus. Right colostomy. Left lateral abdomin al wall hernia.There is presacral soft tissue density. Signed:Fabian Sarkar D.O.December 05, 2011 at 7:36:04 PM [id number] Signed IF/IF If you are the referring physician and would like to consult with theradiologist who provided this interpretation, please contact Fabian Sarkar D.O.at [phone]. If this radiologist is unavailable, you will be directedto another radiologist to assist. If you are a patient with a question regarding this report, pleasecontactyour referring physician directly. Professional Interpretation Provided By: [employer], Phone , Thes e documents contain legally protected and confidential healthinformation intended only for the use of the individual or entity namedabove. If you are not the intended recipient, you are hereby notifiedt hatany disclosure, copying, distribution, or other use of these documents isstrictly prohibited. If you have received this information in error,pleasenotify the sender immediately and arrange for the re turn or destructionofthese documents. Dictated on 12/05/11803 by Flaquita Sarkar DOranscribed on 12/05/111941 by ITS IMPORTSign by Fabian Sarkar DO on 12/05/111942 Sign by: Fabian Sarkar DO 5-Zik-076503:10 Metabolic Panel, Comprehensive Comments: copy to Dr. shukla; PATIENT NOT FASTINGPERFORMED BY: [facility]6370 [facility] [id number] (98960) ALT (SGPT) 16 [iU]/L (Normal) Range: 0-40 AST (SGOT) 22 [iU]/L (Normal) Range: 0-40 Alkaline Phosphatase, S 96 [iU]/L (Normal) Range: 25-165 Bilirubin, Total 0.2 mg/dL (Normal) Range: 0.0-1.2 A/G Ratio 1.2 (Normal) Range: 1.1-2.5 Globulin, Total 3.2 g/dL (Normal) Range: 1.5-4.5 Albumin, Serum 3.9 g/dL (Normal) Range: 3.5-4.8 Protein, Total, Serum 7.1 g/dL (Normal) Range: 6.0-8.5 Calcium, Serum 9.8 mg/dL (Normal) Range: 8.6-10.2 Carbon Dioxide, Total 19 mmol/L (Abnormal) Range: 20-32 Chloride, Serum 104 mmol/L (Normal) Range: 97-108 Potassium, Serum 5.0 mmol/L (Normal) Range: 3.5-5.2 Sodium, Serum 137 mmol/L (Normal) Range: 134-144 BUN/Creatinine Ratio 20 (Normal) Range: 11-26 eGFR If Africn Am 34 mL/min/1.73 (Abnormal) eGFR If NonAfricn Am 30 mL/min/1.73 (Abnormal) Creatinine, Serum 1.68 mg/dL (Abnormal) Range: 0.57-1.00 BUN 34 mg/dL (Abnormal) Range: 8-27 Glucose, Serum 85 mg/dL (Normal) Range: 65-99 9-Olf-035267:10 CBC, Platelets & Auto Diff Comments: PATIENT NOT FASTINGPERFORMED BY: CRISTA [facility] Dadzxo1668 [facility] [id number] Information: [id number] (67426) Immature Grans (Abs) 0.0 {x10E3/uL} (Normal) Range: 0.0-0.1 Immature Granulocytes 0 % (Normal) Range: 0-2 Baso (Absolute) 0.1 {x10E3/uL} (Normal) Range: 0.0-0.2 Eos (Absolute) 0.6 {x10E3/uL} (Abnormal) Range: 0.0-0.4 Monocytes(Absolute) 0.5 {x10E3/uL} (Normal) Range: 0.1-1.0 Lymphs (Absolute) 2.7 {x10E3/uL} (Normal) Range: 0.7-4.5 Neutrophils (Absolute) 4.2 {x10E3/uL} (Normal) Range: 1.8-7.8 Basos 2 % (Normal) Range: 0-3 Eos 7 % (Normal) Range: 0-7 Monocytes 6 % (Normal) Range: 4-13 Lymphs 34 % (Normal) Range: 14-46 Neutrophils 51 % (Normal) Range: 40-74 Platelets 384 {x10E3/uL} (Normal) Range: 140-415 RDW 15.3 % (Normal) Range: 12.3-15.4 MCHC 32.8 g/dL (Normal) Range: 31.5-35.7 MCH 28.6 pg (Normal) Range: 26.6-33.0 MCV 87 fL (Normal) Range: 79-97 Hematocrit 36.6 % (Normal) Range: 34.0-46.6 Hemoglobin 12.0 g/dL (Normal) Range: 11.1-15.9 RBC 4.19 {x10E6/uL} (Normal) Range: 3.77-5.28 WBC 8.1 {x10E3/uL} (Normal) Range: 4.0-10.5 4-Uct-224649:10 Sed Rate Erythrocyte (47357) Comments: PATIENT NOT FASTINGPERFORMED BY: [employer] [facility] Uakapl5690 [facility] [id number] Sedimentation Rate-Westergren 53 mm/h (Abnormal) Range: 0-40 :14 Basic Metabolic Panel (8) Comments: PERFORMED BY: [employer] [facility] Qyevjo8551 [facility] [id number] Calcium, Serum 9.9 mg/dL (Normal) Range: 8.6-10.2 Carbon Dioxide, Total 21 mmol/L (Normal) Range: 20-32 Chloride, Serum 108 mmol/L (Normal) Range: 97-108 Potassium, Serum 4.1 mmol/L (Normal) Range: 3.5-5.2 BUN/Creatinine Ratio 17 (Normal) Range: 8-27 eGFR AfricanAmerican 48 mL/min/1.73 Comments: Note: Persistent reduction for 3 months or more in an eGFR<60 mL/min/1.73 m2 defines CKD. Patients with eGFR values>/=60 mL/min/1.73 m2 may also have CKD if evidence of persistentproteinur ia is (Abnormal) present. Additional information may be found [email or web address].org. Sodium, Serum 145 mmol/L (Normal) Range: 135-145 BUN 22 mg/dL (Normal) Range: 5-26 Creatinine, Serum 1.33 mg/dL (Abnormal) Range: 0.57-1.00 eGFR 39 mL/min/1.73 (Abnormal) Glucose, Serum 60 mg/dL (Abnormal) Range: 65-99 Comments: This serum sample was in contactwith the red cells when received.This may adversely affect serumChemistries. :14 Protein Electro, Random Urine Comments: PERFORMED BY: Crowdery6370 [facility] [id number] Please note: SPRCS (Normal) Comments: Protein electrophoresis scan will follow via computer, mail, orcourier delivery. Khiob-1-Cyodhxiv, U 8.9 % (Normal) Beta Globulin, U 25.6 % (Normal) Gamma Globulin, U 26.9 % (Normal) M-Navarro, % Not Observed % (Normal) Albumin, U 36.2 % (Normal) Gkpfi-8-Fwdojzqv, U 2.5 % (Normal) Protein,Total,Urine 40.0 mg/dL (Abnormal) Range: 0.0-15.0 :14 Protein Electro.,S Comments: PERFORMED BY: Joognu [facility] [id number] Please note: SPRCS (Normal) Comments: Protein electrophoresis scan will follow via computer, mail, orcourier delivery. A/G Ratio 1.1 (Normal) Range: 0.7-2.0 Xdlgp-5-Mjckxvcu 0.2 g/dL (Normal) Range: 0.1-0.4 Bltfl-4-Svuqyjxe 0.9 g/dL (Normal) Range: 0.4-1.2 Beta Globulin 1.4 g/dL (Abnormal) Range: 0.6-1.3 Gamma Globulin 1.0 g/dL (Normal) Range: 0.5-1.6 Globulin, Total 3.5 g/dL (Normal) Range: 2.0-4.5 M-Navarro Not Observed g/dL (Normal) Albumin 4.0 g/dL (Normal) Range: 3.2-5.6 Protein, Total, Serum 7.5 g/dL (Normal) Range: 6.0-8.5 9-Ase-724359:10 HEP-ABC [id number] HB CORE [id number] SeeNote (Normal) Comments: Result: Negative HB SURF AG 6510 SeeNote (Normal) Comments: Result: Negative HEBSAB 6395 < 0.1 (Normal) Range: 0.00-0.99 Comments: Status of Immunity Anti-HBs Level Inconsistent with Immunity 0.00 - 0.99 Consistent with Immunity >0.99 . An Index Value of 1.00 is equivalent to 10 mIU/mL. However the magnitude of the Index Value is not indicative of the total amount of antibody present. HEP A AB,T.67 SeeNote (Normal) Comments: Result: Negative HEP A IgM 6734 SeeNote (Normal) Comments: Result: Negative HEP B CORE,TOT SeeNote (Normal) Comments: Result: Negative HVC Ab <0.1 (Normal) Range: 0.0-0.9 Comments: INFCE Result Units: s/co ratioNegativeNot infected with HCV, unless recent infection issuspected or other evidence exists to indicate HCVinfection.Performed At: [facility] [place], [place] [id number] RIBA RESULT <TEST NOT PERFORMED> (Normal) :10 LIVER ALB 3.5 g/dL (Normal) Range: 3.4-5.0 ALK P 137 U/L (Abnormal) Range: 50-136 ALT 29 U/L (Abnormal) Range: 30-65 AST 22 U/L (Normal) Range: 15-37 D BILI 0.06 mg/dL (Normal) Range: 0.00-0.30 T BILI 0.09 mg/dL (Normal) Range: 0.00-1.00 T PROT 8.0 g/dL (Normal) Range: 6.4-8.2 :10 MICROALB:CRE UR Comments: HOLD IN UNTIL SPECIMEN COLLECTED? (Y/N)* N MALB:CREAT 72.0 {mg/g_CRE} (Abnormal) MICROALBUMIN,UR 127.5 mg/L (Normal) UR CREAT 176.9 mg/dL (Normal) :10 TSH 0.06 {uIU/mL} (Abnormal) Range: 0.34-4.82 :47 COMP METABOLIC A/G 0.9 {RATIO} (Normal) Range: 0.9-2.4 ALB 3.8 g/dL (Normal) Range: 3.4-5.0 ALK P 157 U/L (Abnormal) Range: 50-136 ALT 42 [iU]/L (Normal) Range: 30-65 AST 30 U/L (Normal) Range: 15-37 BUN 39 mg/dL (Abnormal) Range: 7-18 BUN/CRE 27.9 {RATIO} (Abnormal) Range: 10-20 CA 9.7 mg/dL (Normal) Range: 8.5-10.1 CL 104 mmol/L (Normal) Range: 98-107 CO2 25.2 mmol/L (Normal) Range: 21.0-32.0 Comments: Please Note Reference Interval Change CREAT,SERUM 1.4 mg/dL (Abnormal) Range: 0.6-1.0 GAP 10 (Normal) Range: 5-15 GLOB 4.2 g/dL (Normal) Range: 2.7-4.2 Comments: Please Note Reference Interval Change GLU 76 mg/dL (Normal) Range: 70-110 K 4.7 mmol/L (Normal) Range: 3.5-5.1 NA 139 mmol/L (Normal) Range: 136-145 T BILI 0.24 mg/dL (Normal) Range: 0.00-1.00 T PROT 8.0 g/dL (Normal) Range: 6.4-8.2 :47 LIPID CHOL 183 mg/dL (Normal) Comments: <200 mg/dL Desirable 200-240 mg/dL Borderline >240 mg/dL High Risk HDL 72 mg/dL (Normal) Comments: Reference Range HDL <40 mg/dL Low HDL Cholesterol HDL >or= 60 mg/dL High HDL Cholesterol LDL 73 mg/dL (Normal) Range: 0-130 TRIG 190 mg/dL (Normal) Comments: Serum Triglycerides Reference Interval Normal <150 mg/dL Borderline high 150 - 199 mg/dL High 200 - 499 mg/dL Very High > or = 500 mg/dL VLDL 38 mg/dL (Normal) Range: 5-40 :47 ROUTINE UA BILIRUBIN URINE SeeNote (Normal) Comments: Result: NEGATIVE CLARITY CLEAR (Normal) COLOR YELLOW (Normal) GLUCOSE, UR SeeNote (Normal) Comments: Result: NEGATIVE KETONE UR SeeNote mg/dL (Normal) Comments: Result: NEGATIVE LEUK ESTERASE SeeNote (Normal) Comments: Result: NEGATIVE NITRITE UR SeeNote (Normal) Comments: Result: NEGATIVE OCCULT BLOOD-UR SeeNote (Normal) Comments: Result: NEGATIVE pH UR 6.0 (Normal) Range: 5.0-8.0 PROT CONF. 20 mg/dL (Abnormal) Range: 0-5 PROT DIPSTX 2+ (Abnormal) SP.GR. DIPSTX >=1.030 (Normal) Range: 1.002-1.030 UROBILI 0.2 EU/dl (Normal) Range: 0.2 - 1.0 :47 TSH < 0.01 {uIU/mL} Range: 0.34-4.82 (Abnormal) Plan of Care Name Dates Details Instructions Preoperative clearance : Eprescribed prescriptions (G8553) Indication: Preoperative clearance Nonsmoker : Eprescribed prescriptions (G8553) Indication: Nonsmoker Malnutrition : Eprescribed prescriptions (G8553) Indication: Malnutrition Chronic kidney disease, stage III (moderate) : Follow up in 4 months Indication: Chronic kidney disease, stage III (moderate) Benign essential HTN : Reviewed Lab Indication: Benign essential HTN High triglycerides : Reviewed Lab Indication: High triglycerides Chronic kidney disease, stage III (moderate) : *Avoid NSAIDS Indication: Chronic kidney disease, stage III (moderate) Current every day smoker : Follow up in 3 months Indication: Current every day smoker BMI less than 19,adult : Eprescribed prescriptions (G8553) Indication: BMI less than 19,adult Osteoporosis : Follow up in 3 months Indication: Osteoporosis Osteoporosis : Eprescribed prescriptions (G8553) Indication: Osteoporosis Benign essential HTN : Follow up in 3 months Indication: Benign essential HTN Benign essential HTN : Eprescribed prescriptions (G8553) Indication: Benign essential HTN Postmenopausal : Eprescribed prescriptions (G8553) Indication: Postmenopausal Medial epicondylitis of right elbow : medial Epicondyle injection Indication: Medial epicondylitis of right elbow Hypothyroidism : Hypothyroidism: Brief Version *: hypothyroidism Indication: Hypothyroidism Limb pain : mediall Epicondyle injection Indication: Limb pain Pain in forearm, unspecified laterality : Lateral Epicondyle injection Indication: Pain in forearm, unspecified laterality Other vitamin B12 deficiency anemia : Anemia: vitamin b-12 deficiency Indication: Other vitamin B12 deficiency anemia Shoulder pain : Shoulder Injection Indication: Shoulder pain Low back pain : exercises Indication: Low back pain Low back pain : FOLLOW UP IF NO IMPROVEMENT OR IF SYMPTOMS WORSEN Indication: Low back pain Low back pain : Low Back Pain Red Flags Indication: Low back pain Planned Observations CALCIFIDIOL (28563) VIT D 25Indication: Vitamin D deficiency On: 65-Cxb-535829:36 Request Lipid Panel (29524)Indication: Hypothyroidism On: :36 Request URINALYSIS (55154)Indication: Chronic kidney disease, stage III (moderate) On: 84-Dnx-614147:36 Request Metabolic Panel, Comprehensive (06020)Indication: Chronic kidney disease, stage III (moderate) On: :36 Request TSH (47724)Indication: Hypothyroidism On: :35 Request PARATHORMONE (08012)Indication: Chronic kidney disease, stage III (moderate) On: 21-Dym-822955:35 Request MICROALBUMIN: CREATININE RATIO (78269) AND (35946)Indication: Chronic kidney disease, stage III (moderate) On: :35 Request CBC with auto diff (63885)Indication: Chronic kidney disease, stage III (moderate) On: :35 Request METABOLIC PANEL, COMPREHENSIVE (93640)Indication: Chronic kidney disease, stage III (moderate) On: 5-Fxf-717262:59 Request CALCIFIDIOL (27423) VIT D 25Indication: Vitamin D deficiency On: 9-Wau-123065:59 Request CARMEN CULTURE-OTHER (28163)Indication: Vaginal discharge On: 15-Bnx-980430:46 Request Comments: vagina BACT CULTURE ANY-ANAEROBIC (29251)Indication: Vaginal discharge On: 96-Gix-128131:13 Request Comments: of vaginal fluid PHOSPHORUS (86573)Indication: Chronic kidney disease, stage III (moderate) On: 07-Liz-378560:26 Request Comments: do before November office visit PHOSPHORUS (45916)Indication: Malnutrition On: 23-Aug-20179:21 Request Phosphorus (74162)Indication: Malnutrition On: 51-Ddp-881193:42 Request Magnesium (69481)Indication: Malnutrition On: 76-Ake-031354:42 Request C-Reactive Protein (68203)Indication: Osteomyelitis of pelvic region On: 52-Ysy-142949:04 Request METABOLIC PANEL, COMPREHENSIVE (28400)Indication: Benign essential HTN On: 45-Gxv-074923:52 Request URIC ACID BLOOD (73765)Indication: Abnormal blood chemistry On: 23-Yrj-180630:52 Request Iron (06720)Indication: Anemia On: 58-Ylk-362310:44 Request Iron Binding Capacity (TIBC) (64101)Indication: Anemia, chronic disease On: :53 Request Comments: in 6 weeks Iron (42131)Indication: Anemia, chronic disease On: :53 Request Comments: in 6 weeks Metabolic Panel, Comprehensive (91622)Indication: Benign essential HTN On: :52 Request Comments: now and in 6 weeks T4, FREE (THYROXINE) (21132)Indication: Hypothyroidism On: :52 Request Comments: now and in 6 weeks TSH (16430)Indication: Hypothyroidism On: :52 Request Comments: now and in 6 weeks CBC, Platelets & Auto Diff (02593)Indication: Anemia, chronic disease On: :51 Request Comments: now and in 6 weeks Total Protein,24 Hour Urine (69391)Indication: Chronic kidney disease, stage III (moderate) On: :50 Request CREATININE CLEARANCE (42763)Indication: Chronic kidney disease, stage III (moderate) On: :49 Request FECAL OCCULT- Tubes sent home (17061)Indication: Anemia, chronic disease On: :48 Request IRON (36072)Indication: Anemia, chronic disease On: :48 Request Urine Protein Electrophoresis (UPEP) (12710)Indication: Chronic kidney disease, stage III (moderate) On: 93-Ixv-495424:42 Request T4, FREE (THYROXINE) (16865)Indication: Hypothyroidism On: :52 Request T3, FREE (TRIDOTHYRONINE) (12715)Indication: Hypothyroidism On: :52 Request TSH (THYROID STIMULATING HORMONE) (47870)Indication: Hypothyroidism On: :52 Request FERRITIN (94213)Indication: Anemia, chronic disease On: :51 Request IRON BINDING CAPACITY (TIBC) (49567)Indication: Anemia, chronic disease On: :51 Request IRON & TOTAL IRON BINDING CAPACITY (80138)Indication: Anemia, chronic disease On: 1-Yfe-483827:51 Request METABOLIC PANEL, COMPREHENSIVE (91171)Indication: Thrombocytosis On: :50 Request Iron (64516)Indication: Anemia On: :54 Request T3, FREE (TRIDOTHYRONINE) (51285)Indication: Hypothyroidism On: :24 Request TSH (54601)Indication: Hypothyroidism On: :24 Request T4, FREE (THYROXINE) (69036)Indication: Hypothyroidism On: :24 Request ESR-F (SED RATE ERYTHROCYTE - FEMALE) (32532)Indication: Osteomyelitis of pelvic region On: :59 Request Comments: 11/11/15 C-REACT PROT HIGH SENS(hsCRP) (61272)Indication: Osteomyelitis of pelvic region On: :59 Request Comments: 11/11/15 CBC, PLATELETS & AUT DIFF (65898)Indication: Osteomyelitis of pelvic region On: :58 Request Comments: 11/11/15 LIPID PANEL (89879)Indication: Osteoporosis On: :58 Request Comments: 11/11/15 METABOLIC PANEL, COMPREHENSIVE (28995)Indication: Osteomyelitis of pelvic region On: :58 Request Comments: 11/11/15 MICROALBUMIN: CREATININE RATIO (60483) AND (63925)Indication: Osteoporosis On: :58 Request Comments: 11/11/15 VITAMIN B12 AND FOLATES (41575)Indication: Osteoporosis On: :58 Request Comments: 11/11/15 CALCIFEDIOL (33998)Indication: Osteoporosis On: :58 Request Comments: 11/11/15 LIPASE (69930)Indication: Pancreatitis On: :04 Request Comments: 6 week METABOLIC PANEL, COMPREHENSIVE (72270)Indication: Liver function abnormality On: :01 Request Comments: 6 weeks T3, FREE (TRIDOTHYRONINE) (36880)Indication: Hypothyroidism On: :00 Request Comments: 6 weeks T4, FREE (THYROXINE) (06429)Indication: Hypothyroidism On: 58-Mcu-104644:00 Request Comments: 6 weeks TSH (THYROID STIMULATING HORMONE) (02925)Indication: Hypothyroidism On: 66-Wmo-095662:00 Request Comments: 6 weeks CBC, PLATELETS & AUT DIFF (68298)Indication: Thrombocytosis On: 80-Gwz-339078:00 Request Comments: 6 weeks PT (Prothrobim Time) ([id number])Indication: History of DVT (deep vein thrombosis) On: 28-Jun-2015 Request PT (Prothrobim Time) ([id number])Indication: History of DVT (deep vein thrombosis) On: 29-May-2015 Request PT (Prothrobim Time) ([id number])Indication: History of DVT (deep vein thrombosis) On: 29-Apr-2015 Request PT (Prothrobim Time) ([id number])Indication: History of DVT (deep vein thrombosis) On: 30-Mar-2015 Request Metabolic Panel, Basic (22040)Indication: Abnormal blood chemistry On: 74-Rrm-772674:47 Request PT (Prothrobim Time) ([id number])Indication: History of DVT (deep vein thrombosis) On: 28-Feb-2015 Request PT (Prothrobim Time) ([id number])Indication: History of DVT (deep vein thrombosis) On: 29-Jan-2015 Request PT (Prothrobim Time) ([id number])Indication: History of DVT (deep vein thrombosis) On: 30-Dec-2014 Request PT (Prothrobim Time) ([id number])Indication: History of DVT (deep vein thrombosis) On: 30-Nov-2014 Request Urinalysis, Office (92949)Indication: Abnormal urine On: 14-Lsd-259598:18 Request PT (Prothrobim Time) ([id number])Indication: History of DVT (deep vein thrombosis) On: 01-Oct-2014 Request PT (Prothrobim Time) ([id number])Indication: History of DVT (deep vein thrombosis) On: 91-Peo-703161:46 Request URINALYSIS, W/ MICRO (05773)Indication: Chronic kidney disease, stage III (moderate) On: 00-Owj-572019:50 Request METABOLIC PANEL, COMPREHENSIVE (18325)Indication: Chronic kidney disease, stage III (moderate) On: 50-Mow-029710:50 Request Metabolic Panel, Basic (04044)Indication: Chronic kidney disease, stage III (moderate) On: 76-Xox-746682:12 Request URINALYSIS (49508)Indication: Chronic kidney disease, stage III (moderate) On: 87-Cxn-218638:51 Request Comments: recheck before June follow up MICROALBUMIN: CREATININE RATIO (11938) AND (41320)Indication: Chronic kidney disease, stage III (moderate) On: :51 Request Comments: recheck before June follow up Metabolic Panel, Basic (84223)Indication: Chronic kidney disease, stage III (moderate) On: 67-Nui-852396:50 Request Comments: recheck before June follow up Vitamin B-12 (cyanocobalamin) (04439)Indication: Other vitamin B12 deficiency anemia On: 60-Vkl-575769:41 Request TSH (28059)Indication: Benign essential HTN On: 30-Qgg-507363:41 Request METABOLIC PANEL, COMPREHENSIVE (43736)Indication: Chronic kidney disease, stage III (moderate) On: 27-Lci-429460:41 Request CBC W/AUTO DIFF WBC (30349)Indication: Chronic kidney disease, stage III (moderate) On: 27-Bfd-077287:41 Request CALCIFIDIOL (38347) VIT D 25Indication: Osteoporosis On: 82-Tbk-288853:41 Request Vitamin B-12 (cyanocobalamin) (73866)Indication: Other vitamin B12 deficiency anemia On: 25-Oui-241562:11 Request TSH (99424)Indication: Hypothyroidism On: 74-Avk-808075:10 Request METABOLIC PANEL, COMPREHENSIVE (72720)Indication: Benign essential HTN On: 04-Lmk-753704:10 Request LIPID PANEL (85346)Indication: Benign essential HTN On: 29-Yij-738336:10 Request PREALBUMIN (16814)Indication: Abnormal loss of weight On: 66-Zfa-783298:39 Request Vitamin B-12 (cyanocobalamin) (85737)Indication: Other vitamin B12 deficiency anemia On: 46-Ewx-663038:36 Request TSH (10505)Indication: Hypothyroidism On: 83-Tya-631698:35 Request Vitamin B-12 (cyanocobalamin) (67208)Indication: Other vitamin B12 deficiency anemia On: 81-Hsd-65371:43 Request TSH (37306)Indication: Hypothyroidism On: :42 Request T3, FREE (TRIDOTHYRONINE) (23595)Indication: Hypothyroidism On: :42 Request T4, FREE (THYROXINE) (38373)Indication: Hypothyroidism On: :42 Request CBC, Platelets & Auto Diff (08221)Indication: Osteomyelitis of pelvic region On: 88-Cpx-736830:03 Request Comments: copy to Dr. Shira Contreras at [facility] LIPID PANEL (41146)Indication: Benign essential HTN On: :50 Request TSH (59407)Indication: Hypothyroidism On: :50 Request Metabolic Panel, Comprehensive (29982)Indication: Chronic kidney disease, stage III (moderate) On: 75-Cjz-910185:50 Request Vitamin B-12 (cyanocobalamin) (84912)Indication: Other vitamin B12 deficiency anemia On: :49 Request PT (Prothrobim Time) (87171)Indication: History of DVT (deep vein thrombosis) On: 29-Abx-137981:47 Request Comments: standing order PT (Prothrobim Time) (82515)Indication: History of DVT (deep vein thrombosis) On: 71-Zrt-16573:53 Request Comments: standing order CBC (Auto) (53591)Indication: Regional enteritis of large bowel On: :22 Request Comments: every week x4 then every 2 weeks x4 then monthly TSH (04500)Indication: Hypothyroidism On: :20 Request Metabolic Panel, Comprehensive (34586)Indication: Regional enteritis of large bowel On: :16 Request MTHFR (96556)Indication: History of DVT (deep vein thrombosis) On: :15 Request Protein S Profile (46028)Indication: History of DVT (deep vein thrombosis) On: :15 Request Protein C Profile (50502)Indication: History of DVT (deep vein thrombosis) On: :15 Request Homocysteine, Plasma (20654)Indication: History of DVT (deep vein thrombosis) On: :15 Request Antiphospholipid atb (54827)Indication: History of DVT (deep vein thrombosis) On: :15 Request ANTICOAG ANTTHROMB III & ASSAY (09423)Indication: History of DVT (deep vein thrombosis) On: :15 Request ANTITHROMBIN III ACTIVTY (28535)Indication: History of DVT (deep vein thrombosis) On: 99-Wqt-44849:15 Request CLOTTING FACTOR II (73770)Indication: History of DVT (deep vein thrombosis) On: :15 Request Factor V Leiden (66988)Indication: History of DVT (deep vein thrombosis) On: :15 Request LIPID PANEL (28777)Indication: Essential hypertension, malignant On: :13 Request Methymalonic Acid, Serum (23079)Indication: Other vitamin B12 deficiency anemia On: :05 Request CBC (Auto) (74974)Indication: Essential hypertension, malignant On: :57 Request Metabolic Panel, Comprehensive (31186)Indication: Essential hypertension, malignant On: :57 Request TSH (14554)Indication: Hypothyroidism On: :57 Request CALCIFEDIOL (88423)Indication: Abnormal blood chemistry On: 43-Ipx-567070:34 Request VITAMIN B12 AND FOLATES (49953)Indication: Abnormal blood chemistry On: 14-Ujf-015314:34 Request Methylmalonic Acid, Ur (59510)Indication: Abnormal blood chemistry On: :34 Request Homocysteine, Plasma (39492)Indication: Abnormal blood chemistry On: 65-Ilq-170092:34 Request PT (Prothrobim Time) (38021)Indication: Deep vein thrombosis On: 18-Qkz-41668:50 Request Comments: STANDING ORDER Sed Rate Erythrocyte (31883)Indication: Regional enteritis of large bowel On: 75-Hkq-168515:22 Request CBC, Platelets & Auto Diff (58379)Indication: Other vitamin B12 deficiency anemia On: 25-Kdx-555615:22 Request PARATHORMONE (89825)Indication: Regional enteritis of large bowel On: 73-Jwi-212998:18 Request Phosphorus (64071)Indication: Regional enteritis of large bowel On: :18 Request Magnesium (04176)Indication: Regional enteritis of large bowel On: :18 Request CALCIFEDIOL (56964)Indication: Regional enteritis of large bowel On: :18 Request FERRITIN (17959)Indication: Regional enteritis of large bowel On: :18 Request IRON (30306)Indication: Regional enteritis of large bowel On: :18 Request ZINC, BLOOD (39759)Indication: Regional enteritis of large bowel On: :18 Request Vitamin B-12 (cyanocobalamin) (25569)Indication: Other vitamin B12 deficiency anemia On: :18 Request VITAMIN A (47166)Indication: Regional enteritis of large bowel On: :18 Request METHLYMALONIC ACID, SERUM (73904)Indication: Other vitamin B12 deficiency anemia On: :17 Request Folic Acid Serum (69266)Indication: Regional enteritis of large bowel On: :17 Request CHROMIUM (74736)Indication: Regional enteritis of large bowel On: :17 Request ASSAY, HOMOCYSTINE (04984)Indication: Other vitamin B12 deficiency anemia On: :17 Request VITAMIN B-12 (CYANOCOBALAMIN) (06393)Indication: Other vitamin B12 deficiency anemia On: :16 Request Sed Rate Erythrocyte (62982)Indication: Chronic kidney disease, stage III (moderate) On: :23 Request CBC with manual diff (39755)Indication: Chronic kidney disease, stage III (moderate) On: :23 Request Metabolic Panel, Comprehensive (74517)Indication: Chronic kidney disease, stage III (moderate) On: :23 Request TSH (45021)Indication: Hypothyroidism On: :23 Request Vitamin B-12 (cyanocobalamin) (96087)Indication: Other vitamin B12 deficiency anemia On: :41 Request VITAMIN B-12 (CYANOCOBALAMIN) (33758)Indication: Other vitamin B12 deficiency anemia On: 7-Myg-657422:01 Request 24 hour urine for Protein (95737)Indication: Proteinuria On: :17 Request CREATININE CLEARANCE (26125)Indication: Proteinuria On: 79-Mot-97142:17 Request Metabolic Panel, Basic (75993)Indication: Renal insufficiency (Renamed from Renal function impairment) On: :06 Request Urine Protein Electrophoresis (UPEP) (80477)Indication: Proteinuria On: 77-Qmz-816533:06 Request Serum Protein Electrophoresis (SPEP) (32844)Indication: Proteinuria On: 29-Giy-452122:06 Request METABOLIC PANEL, COMPREHENSIVE (21675)Indication: Essential hypertension, malignant On: 37-Enr-517646:14 Request CBC WITH MANUAL DIFF (62607)Indication: Essential hypertension, malignant On: 62-Njw-123718:14 Request Comments: in six months (approximately) TSH (63690)Indication: Hypothyroidism On: 6-Inr-662939:15 Request MICROALBUMIN: CREATININE RATIO (32177) AND (16577)Indication: Proteinuria On: 6-Hqq-791281:13 Request 24 hour urine for Protein (92677)Indication: Proteinuria On: 8-Wfg-269341:13 Request Lipid Panel (19173)Indication: Essential hypertension, malignant On: 0-Pba-100286:13 Request Metabolic Panel, Comprehensive (25530)Indication: Essential hypertension, malignant On: 7-Ibm-083957:13 Request Comments: in three months (approximately) MICROALBUMIN: CREATININE RATIO (75665) AND (77428)Indication: Proteinuria On: 6-Nig-774290:24 Request HEPATITIS PANEL (92129)Indication: Abnormal blood chemistry On: 3-Yqg-006793:22 Request HEPATIC FUNCTION PANEL (93978)Indication: Abnormal blood chemistry On: 3-Quc-019857:22 Request TSH (81613)Indication: Hypothyroidism On: 4-Jpb-145357:12 Request CBC WITH MANUAL DIFF (00329)Indication: Essential hypertension, malignant On: 34-Dal-847996:47 Request METABOLIC PANEL, COMPREHENSIVE (35749)Indication: Essential hypertension, malignant On: 41-Fag-909167:47 Request LIPID PANEL (16599)Indication: Essential hypertension, malignant On: 06-Mqx-212895:47 Request TSH (29466)Indication: Hypothyroidism On: 71-Cdc-010470:47 Request Metabolic Panel, Basic (51839)Indication: Abnormal loss of weight On: 80-Hts-554960:12 Request HEPATIC FUNCTION PANEL (23347)Indication: Abnormal blood chemistry On: 86-Hmu-261401:12 Request TSH (57556)Indication: Hypothyroidism On: 08-Szc-922943:11 Request URINALYSIS (45119)Indication: Proteinuria On: 4-Ctt-998013:11 Request TSH (48082)Indication: Hypothyroidism On: 9-Mvh-684909:09 Request Comments: 6 weeks GGT (GAMMA GLUTAMYLTRANSFERASE) (47208)Indication: Abnormal blood chemistry On: 3-Bww-667115:09 Request ALKALINE PHOSPHATASE (99458)Indication: Abnormal blood chemistry On: 3-Wwv-937909:08 Request Metabolic Panel, Basic (83698)Indication: Abnormal blood chemistry On: 1-Vut-960041:08 Request TSH (21834)Indication: Hypothyroidism On: 19-Ldg-592907:30 Request URINALYSIS (26573)Indication: Essential hypertension, malignant On: 04-Wwa-023009:29 Request CBC (Auto) (99398)Indication: Essential hypertension, malignant On: 32-Rhj-547723:29 Request Metabolic Panel, Comprehensive (09502)Indication: Essential hypertension, malignant On: 56-Bek-455559:29 Request Lipid Panel (22145)Indication: Essential hypertension, malignant On: 51-Plh-552607:29 Request Planned Encounters Medical; [facility] 2 Month FU - On: 30-Jan-2018 11:00 [facility] Terri CARTWRIGHT, Viviana Nicole MD Planned Procedures ELECTROCARDIOGRAM, COMPLETE (ECG) On: 19-Nov-2017 Intent (56722)By: Viviana Murray MD Comments: see scanned document of test done to see results reviewed today with patient Viviana CARTWRIGHT Ultrasound - PelvisBy: Terri CARTWRIGHT, On: 15-Oct-2017 Intent Viviana Nicole MD Comments: copy to Dr. dahl Pap Smear, Medicare ([id number])By: On: 15-Oct-2017 Intent Terri CARTWRIGHT, Viviana Nicole MD DEXA SCAN AXIAL SKELETON (99257)By: On: 23-Aug-2017 Intent Viviana Murray MD, MD, Dana M Comments: due 11-02 CT - Abdomen & Pelvis (IV Contrast On: 29-Jul-2017 Intent Needed)By: Viviana Murray MD Comments: just had fistula debridement surgery. Viviana CARTWRIGHT DEXA SCAN AXIAL SKELETON (39052)By: On: 03-Jun-2017 Intent Viviana Murray MD, MD, Dana M SCREENING DIGITAL TOMOSYNTHESIS OF On: 03-Jun-2017 Intent BREAST (26421)By: Viviana Murray MD, MD, Dana M SCREENING DIGITAL TOMOSYNTHESIS OF On: 17-Jan-2017 Intent BREAST (73532)By: Viviana Murray MD, MD, Dana M Flu Vaccine (Quadrivalent) 36024Lh: On: 17-Jan-2017 Intent Viviana Murray MD, MD, Dana M Comments: Lot #:[id number] date:09/02/2017Amount given:0.5mlRoute: IMSite given:L DltdGiven by: Bertha and ABN signed Flu[employer]ix INJECTION, PROLIA ([id number])By: Julianne On: 25-Sep-2016 Intent Quynh LOUIS Comments: Lot:[id number]:09/03Dose:60mgRoute:sub q Site:l armGiven By:QUINN signed DEXA SCAN AXIAL SKELETON (04436)By: On: 30-Aug-2016 Quynh Shin DO Flu Vaccine (Quadrivalent) [id number]: On: 18-Jan-2016 Intent Kwan Burks MD Comments: Lot #[id number]/30/17ite-L dltd, IMDose prefilled syringegiven by:DARREN REEVES and ABN signed MRI OF PELVIS WITH CONTRAST On: 10-Nov-2015 Intent ([id number])By: Kwan Burks MD Comments: osteomyelitis of left hip, now draining DEXA SCAN AXIAL SKELETON (46349)By: On: 12-Oct-2015 Intent Kwan Burks MD INJECTION, PROLIA ([id number])By: Visit, On: 16-Jun-2015 Intent Nurse Comments: [id number] arm, scprefilled syringeML PNEUM VAC ADLT/IMUMNOSPR, SBC/INTRM On: 17-Jan-2015 Intent (69824)By: Viviana Murray MD Comments: lot: [id number]: ite/route: L del/IMamt:0.5mLVIS signed when applicableFLORINA James MD, Dana M Flu Vaccine (Quadrivalent) 76494Xn: On: 31-Dec-2014 Intent Viviana Murray MD, MD, Dana M Comments: lot [id number]: 09/15/2015site/route L alma, IMamt 0.5mlVIS and ABN signed when applicableCHRISTIANO James4 INJECTION, PROLIA ([id number])By: Vandana, On: 05-Nov-2014 Intent Mary Comments: lot:[id number]:05/05route:SQdose:prefilled syringeSite:R Armgiven by: Fran Ross CMA EKG (68094)By: Viviana Murray MD On: 04-Oct-2014 Intent Viviana Murray MD Comments: see scanned document of test done to see results reviewed today with patient INJECTION, PROLIA ([id number])By: Gayatri On: 10-May-2014 Intent Ashley FAJARDO Comments: lot [id number] 9.17prefilledleft TANA Londono Prevnar 13 (42973)By: Terri CARTWRIGHT, On: 05-Apr-2014 Intent Viviana Nicole MD Ultrasound - RenalBy: Terri CARTWRIGHT, On: 05-Apr-2014 Intent Viviana Nicole MD Renal Artery DopplerBy: Terri CARTWRIGHT, On: 05-Apr-2014 Intent Viviana Nicole MD Bone Density StudyBy: Terri CARTWRIGHT, On: 04-Feb-2014 Intent Viviana Nicole MD MAMMOGRAM, SCREENING, BOTH BREAST On: 03-Nov-2013 Intent (60589)By: Viviana Murray MD, MD, Dana M DRAIN/INJECT MAJOR JOINT OR BURSA On: 06-Aug-2013 Intent (12332)By: Viviana Murray MD, MD, Dana M Eprescribed prescriptions ([id number])By: On: 06-Aug-2013 Intent Viviana Murray MD, MD, Dana M EKG ([id number])By: Viviana Murray MD On: 04-May-2013 Intent Viviana Murray MD Comments: see scanned document of test done to see results reviewed today with patient Eprescribed prescriptions ([id number])By: On: 03-Feb-2013 [facility], Mayra L Eprescribed prescriptions ([id number])By: On: 11-Nov-2012 [facility] PT, Mayra L Venous DopplerBy: Viviana Murray MD On: 29-Jul-2012 Intent Viviana Murray MD Comments: left leg lower follow up doppler Radiology - ChestBy: Viviana Murray MD On: 29-Jul-2012 Intent Viviana Becerra MD MAMMOGRAM, SCREENING, BOTH BREASTS On: 29-Jul-2012 Intent ([id number])By: Viviana Murray MD Comments: screening Viviana CARTWRIGHT DXA, BONE DENSITY, AXIAL SKELETON On: 13-May-2012 Intent ([id number])By: Viviana Murray MD, MD, Dana M MAMMOGRAM, SCREENING, BOTH BREASTS On: 13-May-2012 Intent ([id number])By: Viviana Murray MD, MD, Dana M Eprescribed prescriptions ([id number])By: On: 13-May-2012 [facility] PT, 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 Murray notified Apply. See MCM: [id number]) ([id number])By: Viviana Murray MD, MD, Dana M HYDRATION IV INFUSION, INIT On: 06-Mar-2012 Intent ([id number])By: Viviana Murray MD, MD, Viviana M Venous Doppler - LeftBy: Terri CARTWRIGHT, On: 06-Mar-2012 Intent Viviana Nicole MD Comments: leg stat with wet read. CT -By: Viviana Murray MD On: 23-Nov-2011 Intent Viviana CARTWRIGHT Comments: ENTEROGRAPHY DX CROHNS Kenalog Injection, 10 mgm ([id number])By: On: 30-Nov-2010 Intent Viviana Murray MD, MD, Dana M Kenalog Injection, 10 mgm ([id number])By: On: 30-Nov-2010 Intent Viviana Murray MD, MD, Dana M Kenalog Injection, 10 mgm ([id number])By: On: 30-Nov-2010 Intent Viviana Murray MD, MD, Dana M Kenalog Injection, 10 mgm ([id number])By: On: 30-Nov-2010 Intent Viviana Murray MD, MD, Dana M Carotid DopplerBy: Viviana Murray MD On: 09-Jun-2010 Intent Viviana Murray MD Ultrasound - Abdomen (Limited Area or On: 09-Jun-2010 Intent Organs)By: Viviana Murray MD Comments: Viviana hayden MD Echo CompleteBy: Viviana Murray MD On: 23-Jul-2008 Intent Viviana Murray MD MAMMOGRAM, SCREENING, BOTH BREASTS On: 23-Jul-2008 Intent ([id number])By: Viviana Murray MD, MD, Dana M EKG ([id number])By: Viviana Murray MD On: 23-Jul-2008 Intent Viviana Murray MD PHYSICAL THERAPY EVALUATION On: 21-Jan-2008 Intent ([id number])By: Hallie Paniagua CNP Radiology - Thoracic SpineBy: Fast On: 07-Jan-2008 Intent Mya LOUIS Radiology - Cervical SpineBy: Fast On: 07-Jan-2008 Intent Mya LOUIS DXA, BONE DENSITY, AXIAL SKELETON On: 26-May-2007 Intent ([id number])By: Viviana Murray MD, MD, Dana M MAMMOGRAM, SCREENING, BOTH BREASTS On: 26-May-2007 Intent ([id number])By: Viviana Murray MD, MD, Dana M EKG ([id number])By: Viviana Murray MD On: 26-May-2007 Intent Viviana Murray MD Planned Medications INFUSION, NORMAL SALINE SOLUTION , 1000 CC Ordered: 06-Mar-2012 Pending Viviana Murray MD, MD, Viviana Beck INJECTION, PROLIA Ordered: 10-May-2014 Pending [facility], Ashley INJECTION, PROLIA Ordered: 05-Nov-2014 Pending Vandana, Mary INJECTION, PROLIA Ordered: 16-Jun-2015 Pending Visit, Nurse INJECTION, PROLIA Ordered: 25-Sep-2016 Pending Julianne LOUIS Quynh INJECTION, TRIAMCINOLONE ACETONIDE, NOT OTHERWISE SPECIFIED, 10 MG Ordered: 30-Nov-2010 Pending Terri CARTWRIGHT, Viviana Murray MD, Viviana Beck INJECTION, TRIAMCINOLONE ACETONIDE, NOT OTHERWISE SPECIFIED, 10 MG Ordered: 30-Nov-2010 Pending Terri CARTWRIGHT, Viviana Murray MD, Viviana Beck INJECTION, TRIAMCINOLONE ACETONIDE, NOT OTHERWISE SPECIFIED, 10 MG Ordered: 30-Nov-2010 Pending Terri CARTWRIGHT, Viviana Murray MD, Viviana Beck INJECTION, TRIAMCINOLONE ACETONIDE, NOT OTHERWISE SPECIFIED, 10 MG Ordered: 30-Nov-2010 Pending Viviana Murray MD, MD, Viviana Beck Instructions Name Dates Details Preoperative clearance : How to access health information online Indication: Preoperative clearance Preoperative clearance : How to access health information online - Detail Indication: Preoperative clearance Preoperative clearance : Patient Instructions Indication: Preoperative clearance BMI less than 19,adult : How to access health information online Indication: BMI less than 19,adult BMI less than 19,adult : How to access health information online - Detail Indication: BMI less than 19,adult BMI less than 19,adult : Patient Instructions Indication: BMI less than 19,adult Nonsmoker : How to access health information online Indication: Nonsmoker Nonsmoker : How to access health information online - Detail Indication: Nonsmoker Nonsmoker : Patient Instructions Indication: Nonsmoker Malnutrition : How to access health information online Indication: Malnutrition Malnutrition : How to access health information online - Detail Indication: Malnutrition Malnutrition : Patient Instructions Indication: Malnutrition BMI less than 19,adult : How to access health information online Indication: BMI less than 19,adult BMI less than 19,adult : How to access health information online - Detail Indication: BMI less than 19,adult BMI less than 19,adult : Patient Instructions Indication: BMI less than 19,adult BMI less than 19,adult : How to access health information online Indication: BMI less than 19,adult BMI less than 19,adult : How to access health information online - Detail Indication: BMI less than 19,adult BMI less than 19,adult : Patient Instructions Indication: BMI less than 19,adult Encounter for annual general medical examination with abnormal findings in adult : How to access health information online Indication: Encounter for annual general medical examination with abnormal findings in adult Encounter for annual general medical examination with abnormal findings in adult : How to access health information online - Detail Indication: Encounter for annual general medical examination with abnormal findings in adult Encounter for annual general medical examination with abnormal findings in adult : Patient Instructions Indication: Encounter for annual general medical examination with abnormal findings in adult BMI less than 19,adult : How to access health information online Indication: BMI less than 19,adult BMI less than 19,adult : How to access health information online - Detail Indication: BMI less than 19,adult BMI less than 19,adult : Patient Instructions Indication: BMI less than 19,adult BMI less than 19,adult : How to access health information online Indication: BMI less than 19,adult BMI less than 19,adult : How to access health information online - Detail Indication: BMI less than 19,adult BMI less than 19,adult : Patient Instructions Indication: BMI less than 19,adult BMI less than 19,adult : How to access health information online Indication: BMI less than 19,adult BMI less than 19,adult : How to access health information online - Detail Indication: BMI less than 19,adult BMI less than 19,adult : Patient Instructions Indication: BMI less than 19,adult Other vitamin B12 deficiency anemia : How to access health information online Indication: Other vitamin B12 deficiency anemia Other vitamin B12 deficiency anemia : How to access health information online - Detail Indication: Other vitamin B12 deficiency anemia Other vitamin B12 deficiency anemia : Patient Instructions Indication: Other vitamin B12 deficiency anemia Nonsmoker : How to access health information online Indication: Nonsmoker Nonsmoker : How to access health information online - Detail Indication: Nonsmoker Nonsmoker : Patient Instructions Indication: Nonsmoker BMI less than 19,adult : How to access health information online Indication: BMI less than 19,adult BMI less than 19,adult : How to access health information online - Detail Indication: BMI less than 19,adult BMI less than 19,adult : Patient Instructions Indication: BMI less than 19,adult Osteoporosis : How to access health information online Indication: Osteoporosis Osteoporosis : How to access health information online - Detail Indication: Osteoporosis Osteoporosis : Patient Instructions Indication: Osteoporosis Benign essential HTN : How to access health information online Indication: Benign essential HTN Benign essential HTN : How to access health information online - Detail Indication: Benign essential HTN Benign essential HTN : Patient Instructions Indication: Benign essential HTN Benign essential HTN : How to access health information online Indication: Benign essential HTN Benign essential HTN : How to access health information online - Detail Indication: Benign essential HTN Benign essential HTN : Patient Instructions Indication: Benign essential HTN Chronic kidney disease, stage III (moderate) : How to access health information online Indication: Chronic kidney disease, stage III (moderate) Chronic kidney disease, stage III (moderate) : How to access health information online - Detail Indication: Chronic kidney disease, stage III (moderate) Other vitamin B12 deficiency anemia : How to access health information online - Detail Indication: Other vitamin B12 deficiency anemia Other vitamin B12 deficiency anemia : Patient Instructions Indication: Other vitamin B12 deficiency anemia Postmenopausal : How to access health information online Indication: Postmenopausal Postmenopausal : How to access health information online - Detail Indication: Postmenopausal Postmenopausal : Patient Instructions Indication: Postmenopausal Medial epicondylitis of right elbow : Patient Instructions Indication: Medial epicondylitis of right elbow Abscess of buttock : Patient Instructions Indication: Abscess of buttock Regional enteritis of large bowel : Patient Instructions Indication: Regional enteritis of large bowel Hypothyroidism : Patient Instructions Indication: Hypothyroidism Deep vein thrombosis, unspecified laterality : Patient Instructions Indication: Deep vein thrombosis, unspecified laterality Other vitamin B12 deficiency anemia : Patient Instructions Indication: Other vitamin B12 deficiency anemia Encounters Lab Order On: 27-Jan-2018 10:32 Encounter Diagnosis: Chronic kidney disease, stage III (moderate), Hypothyroidism, Vitamin D deficiency End: 27-Jan-2018 10:37 [facility] Phone Encounter On: 26-Dec-2017 13:19 [facility] End: 26-Dec-2017 13:21 Office Visit On: 19-Nov-2017 11:04 Encounter Reason: Follow up for chronic medical issues - The patient feels well with no complaints, has good energy level and is sleeping well. Patient has been compliant with instructions. Current medication use: no selin End: 19-Nov-2017 12:35 e effects and compliant with dosing regimen. Patient sleeps 8 hours per night. Impact of disease: emotional impact-moderate. Nutrition: balanced diet and supplemental vitamins. The medical issues the pa dimple is following up for include hypothyroid, kidney problems and other (osteomyelitis, B12 def. thrombocytosis, enteritis).Encounter Diagnosis: Nonsmoker, BMI less than 19,adult, Preoperative clearance, Chronic kidney disease, stage III (moderate) , Thickened endometrium, Vitamin D deficiency, Hypothyroidism, Osteomyelitis of pelvic region, Other vitamin B12 deficiency anemia, Proctitis, Thrombocytosis, Bilateral hearing loss, unspecified hearing loss type, Anemia, chronic disease, Benign essential HTN, History of DVT (deep vein thrombosis), Encounter for screening for cervical cancer (Renamed from Encounter for screening for malignant neoplasm of cervix), Vaginal discharge, Chronic anticoagulation, Osteoporosis, Ileostomy in place, Anxiety, Regional enteritis of large bowel, Chronic buttock pain [facility] Office Visit On: 15-Oct-2017 13:45 Encounter Diagnosis: Vaginal discharge End: 15-Oct-2017 13:46 [facility] Office Visit On: 15-Oct-2017 12:32 Encounter Diagnosis: BMI less than 19,adult, Current every day smoker, Vaginal discharge, Encounter for screening for cervical cancer (Renamed from Encounter for screening for malignant neoplasm of cervix) End: 15-Oct-2017 13:18 [facility] Lab Order On: 27-Sep-2017 15:23 Encounter Diagnosis: Chronic kidney disease, stage III (moderate) End: 27-Sep-2017 15:28 [facility] Office Visit On: 19-Sep-2017 9:59 Encounter Reason: Follow up for chronic medical issues - The patient feels well with no complaints, has good energy level and is sleeping well. Patient has been compliant with instructions. Current medication use: no selin End: 19-Sep-2017 10:35 e effects and compliant with dosing regimen. Patient sleeps 8 hours per night. Impact of disease: emotional impact-moderate. Nutrition: balanced diet and supplemental vitamins. The medical issues the pa dimple is following up for include hypothyroid, kidney problems and other (osteomyelitis, B12 def. thrombocytosis, enteritis).Encounter Diagnosis: BMI less than 19,adult, Nonsmoker, Proctitis, Ileostomy in place, Chronic buttock pain, Other vitamin B12 deficiency anemia, Hypothyroidism, Thrombocytosis, Bilateral hearing loss, unspecified hearing loss type, Alcohol abuse, in remission (Renamed from Nondependent alcohol abuse, in remission), Hospital discharge follow-up, Benign essential HTN, Osteomyelitis of pelvic region, Anemia, chronic disease, Chronic kidney disease, stage III (moderate), History of DVT (deep vein thrombosis), Osteoporosis, Chronic anticoagulation, Anemia, Anxiety, Regional enteritis of large bowel, Eye exam, routine, Current every day smoker [facility] Office Visit On: 03-Sep-2017 11:59 Encounter Diagnosis: Anemia, Anxiety, Malnutrition, Nonsmoker End: 03-Sep-2017 12:08 [facility] Office Visit On: 23-Aug-2017 8:55 Encounter Diagnosis: Nonsmoker, Malnutrition, Anxiety, History of DVT (deep vein thrombosis), Fistula, 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 The patient feels well with minor complaints and has decreased energy level. Patient has been compliant with instructions. Current medicat End: 16-Aug-2017 11:04 ion use: no side effects, compliant with dosing regimen and considered effective by patient. Patient sleeps 7 hours per night. Impact of disease: emotional impact-mild. Nutrition: balanced diet and supplemental vitamins.Encounter Diagnosis: BMI less than 19,adult, Hospital discharge follow-up, Malnutrition, Current every day smoker, Alcohol abuse, in remission (Renamed from Nondependent alcohol abuse, in remission) [facility] Annotation/Addendum On: 09-Aug-2017 9:44 Encounter Diagnosis: Anxiety End: 09-Aug-2017 9:45 [facility] Office Visit On: 29-Jul-2017 14:37 Encounter Diagnosis: BMI less than 19,adult, Current every day smoker, Dysuria, Abnormal loss of weight, Malnutrition, Hypothyroidism, Osteomyelitis of pelvic region, Fistula, 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), History of DVT (deep vein thrombosis) End: 29-Jul-2017 15:54 [facility] Office Visit On: 03-Jun-2017 11:54 Encounter Diagnosis: BMI less than 19,adult, Encounter for annual general medical examination with abnormal findings in adult, Current every day smoker, Chronic buttock pain, Ileostomy in place, Other vitamin B12 deficiency anemia, High triglycerides End: 03-Jun-2017 21:55 , Liver function abnormality, Proctitis, History of DVT (deep vein thrombosis), Benign essential HTN, Chronic anticoagulation, Thrombocytosis, Chronic kidney disease, stage III (moderate), Osteomyelitis of pelvic region, Osteoporosis, Elevated alkaline phosphatase level, Hypothyroidism, Anemia, chronic disease, Regional enteritis of large bowel, Anemia, Abnormal blood chemistry, Bilateral hearing loss, unspecified hearing loss type, Encounter for screening mammogram for breast cancer (Renamed from Encounter for screening mammogram for malignant neoplasm of breast), Postmenopausal [facility] Office Visit On: 21-May-2017 8:31 Encounter Diagnosis: Eye exam, routine End: 23-May-2017 13:53 [facility] Lab Order On: 08-May-2017 16:42 Encounter Diagnosis: Anemia End: 08-May-2017 16:46 [facility] Office Visit On: 26-Feb-2017 13:27 Encounter Reason: Nurse procedure visit - The symptoms have been associated with other (weight check).[facility] End: 28-Feb-2017 7:04 Office Visit On: 17-Jan-2017 13:04 Encounter Reason: Follow up for chronic medical issues - The patient feels well with minor complaints and has decreased energy level. Patient has been compliant with instructions. Current medication use: no side effects End: 18-Jan-2017 7:43 and compliant with dosing regimen. Patient sleeps 7 hours per night. Impact of disease: emotional impact-moderate. Nutrition: balanced diet and supplemental vitamins. The medical issues the patient is f ollowing up for include hypothyroid, kidney problems and other (osteomyelitis, B12 def. thrombocytosis, enteritis)., [ADDITIONAL REASON] Annual Medicare Exam - The patient had reviewed and updated the family history, medication/s, past medical history and social history. Yes the patient did have a mini mental status exam done today. The patient would like education and information on smoking cessation. The activitie s of daily living the patient needs help with are none. The patient has had urinary incontinence and driven in past 6 months, but the patient has not put area rugs through house or put handrails in bath room. The patient has completed the following preventative measures: mammography (2013) and colonoscopy (2013). The patient does have durable power of deputy prosecuting attorney and living will. The patient has noticed n othing from the geriatic depression scale. Other providers contributing to the patient's care are other: (Dr. Cooper Surgeon). Encounter Diagnosis: BMI less than 19,adult, Current every day smoker, Chronic buttock pain, Encounter for annual general medical examination with abnormal findings in adult, Ileostomy in place, Benign essential HTN, Liver function abnormality, Proctitis, History of DVT (deep vein thrombosis), Chronic anticoagulation, Osteoporosis, High triglycerides, Anemia, Hypothyroidism, Iron deficiency anemia, Osteomyelitis of pelvic region, Chronic kidney disease, stage III (moderate), Thrombocytosis, Other vitamin B12 deficiency anemia, Elevated alkaline phosphatase level, Regional enteritis of large bowel, Nonsmoker, Need for prophylactic vaccination (Renamed from Need for immunization against influenza), Encounter for screening mammogram for breast cancer (Renamed from Encounter for screening mammogram f or malignant neoplasm of breast) [facility] Office Visit On: 20-Nov-2016 12:56 Encounter Reason: Follow up acute care visit - The patient feeling better since last seen and improving. Patient has been compliant with instructions. Current medication use: no side effects, compliant with dosing regime End: 20-Nov-2016 13:36 n and considered effective by patient. Patient sleeps 6 hours per night. Impact of disease: emotional impact-moderate. Nutrition: balanced diet and supplemental vitamins. The medical issues the patient is following up for include other (thyroid issues waiting for surgery).Encounter Diagnosis: BMI less than 19,adult, Current every day smoker, Iron deficiency anemia, Osteomyelitis of pelvic region, Hypothyroidism [facility] Phone Encounter On: 11-Oct-2016 11:38 Encounter Diagnosis: Osteomyelitis of pelvic region End: 11-Oct-2016 11:39 [facility] Lab Order On: 08-Oct-2016 11:59 Encounter Diagnosis: Hypothyroidism End: 08-Oct-2016 12:03 [facility] Office Visit On: 02-Oct-2016 13:48 Encounter Diagnosis: BMI less than 19,adult, Current every day smoker, Ileostomy in place, Osteomyelitis of pelvic region, Chronic buttock pain, Nonsmoker, Iron deficiency anemia, Hypothyroidism, Liver function abnormality, Proctitis, Thrombocytosis End: 02-Oct-2016 14:53 , Hypocalcemia, Benign essential HTN, History of DVT (deep vein thrombosis), Chronic anticoagulation, Osteoporosis, High triglycerides, Chronic kidney disease, stage III (moderate), Regional enteritis of large bowel, Lower extremity edema, Anemia, Other vitamin B12 deficiency anemia, Abnormal loss of weight, Elevated alkaline phosphatase level [facility] Office Visit On: 25-Sep-2016 10:55 Encounter Reason: Injections - The medication the patient is here to receive is other (prolia).Encounter Diagnosis: Osteoporosis End: 25-Sep-2016 14:01 [facility] Office Visit On: 30-Aug-2016 13:05 Encounter Reason: Follow up tests - Date: (08/23/16 labs)., [ADDITIONAL REASON] Follow up for chronic medical issues - The patient does not feel well, has decre End: 30-Aug-2016 14:51 ased energy level and is sleeping poorly. Patient has been compliant with instructions. Current medication use: no side effects and compliant with dosing regimen. Patient sleeps 6 hours per night. Nutri tion: poor nutrition and supplemental vitamins. The medical issues the patient is following up for include All identified problems below, kidney problems and osteoporosis/osteopenia. Encounter Diagnosis: BMI less than 19,adult, Nonsmoker, Other vitamin B12 deficiency anemia, Iron deficiency anemia, Hypothyroidism, Benign essential HTN, High triglycerides, Chronic kidney disease, stage III (moderate), History of DVT (deep vein thrombosis), Chronic anticoagulation, Osteoporosis, Postmenopausal, Ileostomy in place, Osteomyelitis of pelvic region [facility] Lab Order On: 17-Aug-2016 6:38 Encounter Diagnosis: High triglycerides, Anemia, Other vitamin B12 deficiency anemia End: 17-Aug-2016 6:42 [facility] Phone Encounter On: 29-Feb-2016 14:44 Encounter Diagnosis: Unspecified Diagnosis End: 29-Feb-2016 15:06 [facility] Office Visit On: 18-Jan-2016 10:23 Encounter Reason: Follow up for chronic medical issues - The patient feels well with minor complaints, has good energy level (so so) and is sleeping poorly. Patient has been compliant with instructions. Current medicatio End: 18-Jan-2016 15:58 n use: no side effects, compliant with dosing regimen and considered effective by patient. Patient sleeps 6 hours per night. Impact of disease: emotional impact- mild. Nutrition: balanced diet and supple mental vitamins. The medical issues the patient is following up for include cardiac issues, high blood pressure, kidney problems, osteoporosis/osteopenia and other (B12 def., osteomyelitis, hx. DVT, regional enteritis of large bowel ). Encounter Diagnosis: Current every day smoker, BMI less than 19,adult, Need for prophylactic vaccination (Renamed from Need for immunization against influenza), Regional enteritis of large bowel, Benign essential HTN, Liver function abnormality, Hypothyroidism, Osteomyelitis of pelvic region, Anemia, Osteoporosis, Chronic kidney disease, stage III (moderate), Other vitamin B12 deficiency anemia, History of DVT (deep vein thrombosis), Thrombocytosis, Ileostomy in place, High triglycerides, Iron deficiency anemia, Proctitis [facility] Phone Encounter On: 11-Jan-2016 14:49 Encounter Diagnosis: Hypothyroidism, Anemia, Benign essential HTN, Liver function abnormality End: 11-Jan-2016 14:55 [facility] Phone Encounter On: 24-Nov-2015 15:21 Encounter Diagnosis: Hypothyroidism End: 24-Nov-2015 15:24 [facility] Office Visit On: 10-Nov-2015 10:50 Encounter Reason: Follow up tests - Date: (dexa 10.25.15).Encounter Diagnosis: Osteoporosis, Osteomyelitis of pelvic region End: 10-Nov-2015 15:02 [facility] Office Visit On: 12-Oct-2015 9:45 Encounter Reason: Follow up for chronic medical issues - The patient feels well with minor complaints, has good energy level and is sleeping well. Patient has been compliant with instructions. Current medication use: no End: 12-Oct-2015 16:47 side effects, compliant with dosing regimen and considered effective by patient. Patient sleeps 7 hours per night. Impact of disease: emotional impact-mild. Nutrition: balanced diet and supplemental vit amins. The medical issues the patient is following up for include cardiac issues, high blood pressure, kidney problems, osteoporosis/osteopenia and other (B12 def., osteomyelitis, hx. DVT, regional enteritis of large bowel )., [ADDITIONAL REASON] Follow up tests - Date: (10.11.15). Encounter Diagnosis: Benign essential HTN, BMI less than 19,adult, Nonsmoker, Ileostomy in place, Chronic kidney disease, stage III (moderate), Osteomyelitis of pelvic region, Regional enteritis of large bowel, Other vitamin B12 deficiency anemia, Hypocalcemia, Osteoporosis, History of DVT (deep vein thrombosis), Hypothyroidism, Thrombocytosis, Liver function abnormality, Pancreatitis [facility] Office Visit On: 11-Jul-2015 11:12 Encounter Reason: Follow up for chronic medical issues - The patient feels well with minor complaints, has good energy level and is sleeping well. Patient has been compliant with instructions. Current medication use: no End: 11-Jul-2015 12:00 side effects, compliant with dosing regimen and considered effective by patient. Patient sleeps 7 hours per night. Impact of disease: emotional impact-mild. Nutrition: balanced diet and supplemental vit amins. The medical issues the patient is following up for include cardiac issues, high blood pressure, kidney problems, osteoporosis/osteopenia and other (B12 def., osteomyelitis, hx. DVT, regional enteritis of large bowel ).Encounter Diagnosis: Benign essential HTN, Current every day smoker, History of DVT (deep vein thrombosis), Other vitamin B12 deficiency anemia, Hypothyroidism, Hyperkalemia, Osteoporosis, Osteomyelitis of pelvic region, Chronic kidney disease, stage III (moderate), Regional enteritis of large bowel, Lower extremity edema, Hypocalcemia [facility] Office Visit On: 16-Jun-2015 14:03 Encounter Reason: Injections - The medication the patient is here to receive is other (prolia).Encounter Diagnosis: Osteoporosis End: 16-Jun-2015 14:29 [facility] Office Visit On: 11-Apr-2015 9:29 Encounter Reason: Follow up for chronic medical issues - The patient feels well with no complaints, has good energy level and is sleeping well. Patient has been compliant with instructions. Current medication use: no selin End: 11-Apr-2015 10:04 e effects, compliant with dosing regimen and considered effective by patient. Patient sleeps 7 hours per night. Impact of disease: emotional impact-mild. Nutrition: balanced diet and supplemental vitami ns. The medical issues the patient is following up for include cardiac issues, hypothyroid, kidney problems, osteoporosis/osteopenia and other (hx. DVT, regional enteritis, osteomyelitis ).Encounter Diagnosis: Chronic kidney disease, stage III (moderate), Current every day smoker, Regional enteritis of large bowel, Other vitamin B12 deficiency anemia, Hypothyroidism, Osteoporosis, Benign essential HTN, Hyperkalemia, Acute renal failure, Osteomyelitis of pelvic region, History of DVT (deep vein thrombosis), Lower extremity edema [facility] Office Visit On: 04-Mar-2015 13:14 Encounter Reason: Follow up hospital - Reason for ER visit: note: (acute renal failure ). The patient feels well with minor complaints and has decreased energy level. Patient has been compliant with instructions. Current End: 04-Mar-2015 13:51 medication use: compliant with dosing regimen. Patient sleeps 8 hours per night. Impact of disease: emotional impact-moderate. Nutrition: balanced diet and supplemental vitamins. The hospital results o f the Lab abnormal and other (renal us ) were Note for Follow up hospital: pt was on atb for fistula and drainaing see ID and they had her on atb nursing home and creat kept climbing. talk to ID and keturah parr changed atb doxycycline in 01-30. creat continued to climb pt started to feel worse. when i got last creat called ID and he recommend stop atb but by that time pt in hospital ?creat 2.3 an dthen 1 qweek 4.1 ?right now off atb. now draiing and no pain in buttocks pt states think closed since . given alot of fiulds IV creat come back down feel good except for swelling in legs and hands and feet.Encounter Diagnosis: Abnormal urine, Acute renal failure, Lower extremity edema, Abnormal blood chemistry [facility] Office Visit On: 17-Jan-2015 11:27 Encounter Reason: Injections - The medication the patient is here to receive is pneumovax IM.Encounter Diagnosis: Pneumococcal vaccination given End: 19-Jan-2015 8:44 [facility] Phone Encounter On: 03-Jan-2015 17:56 Encounter Diagnosis: Abnormal laboratory test End: 03-Jan-2015 18:10 [facility] Office Visit On: 31-Dec-2014 11:50 Encounter Reason: Injections - The medication the patient is here to receive is other (influenza).Encounter Diagnosis: Need for prophylactic vaccination (Renamed from Need for immunization against influenza) End: 03-Jan-2015 9:40 [facility] Refill Request On: 06-Dec-2014 12:37 Encounter Diagnosis: Fistula, 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) End: 06-Dec-2014 12:39 [facility] Office Visit On: 05-Nov-2014 10:25 Encounter Reason: InjectionsEncounter Diagnosis: Osteoporosis (733.00) End: 05-Nov-2014 12:09 [facility] Phone Encounter On: 03-Nov-2014 8:10 Encounter Diagnosis: Chronic Kidney Disease, Stage III (Moderate)(585.3) End: 03-Nov-2014 8:11 [facility] Phone Encounter On: 04-Oct-2014 11:46 Encounter Diagnosis: Abnormal urine End: 04-Oct-2014 11:54 [facility] Office Visit On: 04-Oct-2014 10:51 Encounter Reason: Follow up for chronic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
--- OUTSIDE RECORDS SUMMARY | 2018-03-25 11:23 | XMS RPT_ITS | Continuity of Care Document ---
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 calcium and D. [place]: The National Academies Press.2. Justin MF, Jazmyn FOSTER, Aniya CANO, et al. Evaluation, treatment, and prevention of vitamin D deficiency: an Endocrine Society clinical practice guideline. JCEM. 2010; 96(7):1911-30. 18-Awi-602423:31 Lipid Panel (47291) Comments: PATIENT WAS FASTINGPERFORMED BY: [employer]6370 [facility] [id number] LDL/HDL Ratio 0.9 {ratio} (Normal) Range: 0.0-3.2 Comments: LDL/HDL Ratio Men Women 1/2 Avg.Risk 1.0 1.5 Av g.Risk 3.6 3.2 2X Avg.Risk 6.2 5.0 3X Avg.Risk 8.0 6.1 LDL Cholesterol Calc 77 mg/dL (Normal) Range: 0-99 VLDL Cholesterol Alesha 43 mg/dL (Abnormal) Range: 5-40 HDL Cholesterol 85 mg/dL (Normal) Triglycerides 216 mg/dL (Abnormal) Range: 0-149 Cholesterol, Total 205 mg/dL (Abnormal) Range: 100-199 63-Bhc-308590:31 Metabolic Panel, Comprehensive Comments: PATIENT WAS FASTINGPERFORMED BY: Bumpr LabCoVquenceVytaas5796 [facility] [id number] (38264) ALT (SGPT) 12 [iU]/L (Normal) Range: 0-32 AST (SGOT) 25 [iU]/L (Normal) Range: 0-40 Alkaline Phosphatase 123 [iU]/L (Abnormal) Range: 39-117 Bilirubin, Total 0.3 mg/dL (Normal) Range: 0.0-1.2 A/G Ratio 1.4 (Normal) Range: 1.2-2.2 Globulin, Total 3.0 g/dL (Normal) Range: 1.5-4.5 Albumin 4.1 g/dL (Normal) Range: 3.5-4.8 Protein, Total 7.1 g/dL (Normal) Range: 6.0-8.5 Calcium 9.9 mg/dL (Normal) Range: 8.7-10.3 Carbon Dioxide, Total 19 mmol/L (Abnormal) Range: 20-29 Chloride 102 mmol/L (Normal) Range: 96-106 Potassium 5.0 mmol/L (Normal) Range: 3.5-5.2 Sodium 141 mmol/L (Normal) Range: 134-144 BUN/Creatinine Ratio 21 (Normal) Range: 12-28 eGFR If Africn Am 34 mL/min/1.73 (Abnormal) eGFR If NonAfricn Am 30 mL/min/1.73 (Abnormal) Creatinine 1.63 mg/dL (Abnormal) Range: 0.57-1.00 BUN 35 mg/dL (Abnormal) Range: 8-27 Glucose 105 mg/dL (Abnormal) Range: 65-99 47-Xjd-942114:31 TSH (96922) Comments: PATIENT WAS FASTINGPERFORMED BY: Re[employer]on6370 [facility] DiagnosticsCounts include 234 beds at the [facility] [id number] TSH 0.245 {uIU/mL} (Abnormal) Range: 0.450-4.500 28-Bqu-138704:31 PARATHORMONE (49577) Comments: PATIENT WAS FASTINGPERFORMED BY: Bumpr LabOrdoro6370 [address] [place] [id number] PTH, Intact 54 pg/mL (Normal) Range: 15-65 92-Ksh-442841:31 CBC with auto diff Comments: PATIENT WAS FASTINGPERFORMED BY: [facility]on6370 [facility] [id number] Information: DIFFICULT DRAW (34153) Immature Grans (Abs) 0.0 {x10E3/uL} (Normal) Range: 0.0-0.1 Immature Granulocytes 0 % (Normal) Baso (Absolute) 0.1 {x10E3/uL} (Normal) Range: 0.0-0.2 Eos (Absolute) 0.5 {x10E3/uL} (Abnormal) Range: 0.0-0.4 Monocytes(Absolute) 0.4 {x10E3/uL} (Normal) Range: 0.1-0.9 Lymphs (Absolute) 1.7 {x10E3/uL} (Normal) Range: 0.7-3.1 Neutrophils (Absolute) 3.4 {x10E3/uL} (Normal) Range: 1.4-7.0 Basos 2 % (Normal) Eos 8 % (Normal) Monocytes 6 % (Normal) Lymphs 28 % (Normal) Neutrophils 56 % (Normal) Platelets 236 {x10E3/uL} (Normal) Range: 150-379 RDW 18.0 % (Abnormal) Range: 12.3-15.4 MCHC 32.8 g/dL (Normal) Range: 31.5-35.7 MCH 28.3 pg (Normal) Range: 26.6-33.0 MCV 86 fL (Normal) Range: 79-97 Hematocrit 38.4 % (Normal) Range: 34.0-46.6 Hemoglobin 12.6 g/dL (Normal) Range: 11.1-15.9 RBC 4.45 {x10E6/uL} (Normal) Range: 3.77-5.28 WBC 6.1 {x10E3/uL} (Normal) Range: 3.4-10.8 90-Xlr-868568:55 CBC-Complete Blood Cnt No Diff Comments: [facility] Wzkiszziba0089 [facility] [place], [place], [id number] MPV 10.0 fL (Normal) Range: 6.2-12.0 PLT [...] Range: 4.4-11.0 :55 Partial Thromboplast Time Comments: [facility] Pghxpczuaz0795 [facility] [place], [place], [id number] PTT 28.6 s (Normal) Range: 24.1-36.2 25-Wfs-119361:55 Prothrombin Time w/INR Comments: [facility] Ldhcssdacj25[address] [place], [address] INR 1.1 (Normal) PROTIME 13.8 s (Normal) Range: 11.7-14.9 : ENDOMETRIAL See Note (Normal) Comments: [facility] Ycquovgztp[address], [address] 00 BX/CURETTINGS Comments: Patient: SHARMAINE FARLEY : 1940 (77/F) Acct Num: [id number] Phys: Miriam Elaine MD Unit Num: [id number] Loc: [facility] Specimen: [id number] Received: 12/26/17 - 1506 Spec Type: ENDO [...] specimen is submitted in one cassette. / KELLIE:paulina 12/26/17 TC:4 CPT: 76676 HEADER OPERATION: Hysteroscopy, dilation and cu rettage PRE-OP DIAGNOSIS: Thickened endometrium, postmenopausal bleeding TISSUE SUBMITTED: Endometrial curettings MICROSCOPIC DESCRIPTION Slides are reviewed. MICROSCOPIC DIAGNOSIS Endometrial curettings: Rare minute strips of benign endometrial epithelium. Scant fragments of benign ecto- and endocervical epithelium and mucous. See comment. KELLIE:paulina 12/27/17 Signed __ Eliceo Lara 12/27/17 <signature on file> 00-Mwh-827572:00 Thin Prep Pap (94103) Comments: No. of containers..01 ThinPrep VialPERFORMED BY: =G LabCo01 [facility] W [id number] BY: SeevibesS[facility]ev[facility] Ypletonnmh40865 Hart StreetVilmasuburban community hospital W [id number] linical Information: [id number] Age Gdln ACOG Testing AGE6 (Normal) Comments: <21 or >65 or no age provided 55-Kyt-170429:00 Genital Culture, Routine Comments: PERFORMED BY: [facility] [place] [address] [id number] Information: SRC:VA Result 1 RGF (Normal) Comments: Routine genital nina. Genital Culture, Routine Final report (Normal) 79-Mve-624513:00 Pap IG (Image Guided) Comments: No. 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 Installer (ASCP) 54-Bkn-262864:35 CBC WITH MANUAL DIFF (01656) Comments: do before November office visit; PATIENT NOT FASTINGPERFORMED BY: CRISTA [facility]6370 [facility] [id number] Immature Grans (Abs) 0.0 {x10E3/uL} (Normal) Range: [...] 3.77-5.28 WBC 7.7 {x10E3/uL} (Normal) Range: 3.4-10.8 39-Oee-689021:35 CALCIFIDIOL (54066) VIT D 25 Comments: do before November office visit; PATIENT NOT FASTINGPERFORMED BY: [facility]6370 [facility] [id number] Vitamin D, 25-Hydroxy 18.4 ng/mL (Abnormal) Range: 30.0-100.0 Comments: Vitamin D deficiency has been defined by the [place] of[place]icine and an Endocrine Society practice guideline as alevel of serum 25-OH vitamin D less than 20 ng/mL (1,2).The Endocrine Society went on to further define vitamin Dinsufficiency as a level between 21 and 29 ng/mL (2).1. IOM ([place] of Medicine). 2010. Dietary reference intakes for calcium and D. [place]: The National Academies Press.2. Justin MF, Jazmyn NC, Aniya CANO, et al. Evaluation, treatment, and prevention of vitamin D deficiency: an Endocrine Society clinical practice guideline. JCEM. 2010; 96(5):5521-30. 40-Iwr-242353:35 Renal function Panel (90882) Comments: do before November office visit; PATIENT NOT FASTINGPERFORMED BY: [facility] [employer] [employer] [place] [id number]; creat better fu 9-4 DB Albumin 4.0 [...] 8-27 Glucose 80 mg/dL (Normal) Range: 65-99 4-Izu-184887:06 Renal function Panel (32013) Comments: PATIENT NOT FASTINGPERFORMED BY: [employer]6370 [facility] DiagnosticsCounts include 234 beds at the [facility] [id number] Albumin 3.8 g/dL (Normal) Range: 3.5-4.8 Phosphorus [...] 8-27 Glucose 65 mg/dL (Normal) Range: 65-99 6-Mjr-960529:15 CBC, Platelets & Auto Diff Comments: PATIENT NOT FASTINGPERFORMED BY: [facility] Ewqgka1318 [facility] [id number] (30835) Immature Grans (Abs) 0.0 {x10E3/uL} (Normal) Range: [...] 3.77-5.28 WBC 7.1 {x10E3/uL} (Normal) Range: 3.4-10.8 2-Alr-419711:15 PREALBUMIN (79989) Comments: PATIENT NOT FASTINGPERFORMED BY: [facility] Efdopy2992 [facility] [id number] Prealbumin 38 mg/dL (Abnormal) Range: 9-32 7-Opf-460554:15 Renal function Panel (91699) Comments: PATIENT NOT FASTINGPERFORMED BY: [facility] Azazfx5742 [facility] [id number] Albumin 4.1 g/dL (Normal) Range: 3.5-4.8 Phosphorus [...] 8-27 Glucose 66 mg/dL (Normal) Range: 65-99 36-Mmu-828814:39 CREATININE FINGERSTICK Comments: [facility] LaboratoryPoint of Yczy[address] [place], [place] [id number] EGFR WB 19.0000 mL/min (Abnormal) CREATININE WB 2.6 mg/dL (Abnormal) Range: 0.55-1.02 26-Tod-335454: Magnesium 1.4 mg/dL (Abnormal) Comments: PATIENT NOT FASTINGPERFORMED BY: [facility]6370 [facility] [id number] 56 Range: 1.6-2.3 : Phosphorus 6.1 mg/dL (Abnormal) Comments: PATIENT NOT FASTINGPERFORMED BY: [facility]6370 [facility] [id number] 56 Range: 2.5-4.5 36-Jqr-87867:57 Anaerobic & Aerobic Comments: PATIENT NOT FASTINGPERFORMED BY: [facility]6370 [facility] [id number] Information: BUTTOCK SRC:BT Culture (32447) Result 1 NG36 (Normal) Comments: No growth in 36 - 48 hours. Aerobic Culture Final report (Normal) Result 1 STREIN (Abnormal) Comments: Streptococcus intermediusLight growth Anaerobic Culture Final report (Abnormal) :56 METABOLIC PANEL, COMPREHENSIVE Comments: PATIENT NOT FASTINGPERFORMED BY: [facility]6370 [facility] [id number] (22875) ALT (SGPT) 52 [iU]/L (Abnormal) Range: 0-32 [...] 8-27 Glucose 151 mg/dL (Abnormal) Range: 65-99 89-Fhy-731099:56 CBC with auto diff (75918) Comments: PATIENT NOT FASTINGPERFORMED BY: [facility] Jwgnps5831 [facility] [id number] Immature Grans (Abs) 0.0 {x10E3/uL} (Normal) Range: [...] 3.77-5.28 WBC 8.6 {x10E3/uL} (Normal) Range: 3.4-10.8 92-Dxh-787503:56 TSH (36470) Comments: PATIENT NOT FASTINGPERFORMED BY: Piehole Yrrwdr9717 [facility] [id number] TSH 0.489 {uIU/mL} (Normal) Range: 0.450-4.500 50-Eur-515342:56 PREALBUMIN (50520) Comments: PATIENT NOT FASTINGPERFORMED BY: [facility] Eybjer0258 [facility] [id number] Prealbumin 18 mg/dL (Normal) Range: 9-32 54-Dlb-697225:02 URINE CARMEN CULTURE-IDENTIFICATN Comments: PATIENT NOT FASTINGPERFORMED BY: Piehole Ycqoet7702 [facility] [id number] Information: SRC: (80204) Result 1 MUG (Normal) Comments: Mixed urogenital flora2,000 Colonies/mL Urine Culture,Comprehensive Final report (Normal) 66-Qjp-491169:45 Urinalysis, Office (10508) UA - LEUKOCYTE ESTERASE Moderate (Normal) UA [...] CREATININE CLEARANCE Comments: PATIENT NOT FASTINGPERFORMED BY: Piehole Zqrhcc8933 [facility] [id number] Information: START 09/23/17@7AM (31259) Creatinine Clearance 31 mL/min (Abnormal) Range: 88-128 Comments: The above range is based on 1.73 square meter average body surfacearea. Creatinine, Ur 24hr 740 {mg/24_hr} (Abnormal) Range: 800-1800 Creatinine, Urine 87.1 mg/dL (Normal) eGFR If Africn Am 34 mL/min/1.73 (Abnormal) eGFR If NonAfricn Am 30 mL/min/1.73 (Abnormal) Creatinine 1.64 mg/dL (Abnormal) Range: 0.57-1.00 23-Sep-20177:00 Total Protein,24 Hour Urine Comments: PATIENT NOT FASTINGPERFORMED BY: [facility] Mqlezq0362 [facility] [place] [id number] (85552) Prot,24hr calculated 401 {mg/24_hr} (Abnormal) Range: 30-150 Protein,Total,Urine 47.2 mg/dL (Normal) 9-Ikt-065532:24 Methymalonic Acid, Serum Comments: PATIENT NOT FASTINGPERFORMED BY: LabTellyo Zajmms4301 An[address] [facility] [id number] BY: [address] [id number] (74129) Methylmalonic Acid, Serum 271 nmol/L (Normal) Range: 0-378 3-Ans-279847:24 Vitamin B-12 (cyanocobalamin) Comments: PATIENT NOT FASTINGPERFORMED BY: Piehole Ieitdc7371 [facility] [id number] BY: [address] [id number] (36628) Vitamin B12 414 pg/mL (Normal) Range: 232-1245 4-Zpp-121245:24 Iron Binding Capacity Comments: PATIENT NOT FASTINGPERFORMED BY: PieholeInspira Medical Center VinelandRduliz0827 [facility] [id number] BY: [address] [id number] Inf ormation: NURSE DROP OFF (TIBC) (98267) Iron Saturation 5 % (Abnormal) Range: 15-55 Iron, Serum 16 ug/dL (Abnormal) Range: 27-139 UIBC 301 ug/dL (Normal) Range: 118-369 Iron Bind.Cap.(TIBC) 317 ug/dL (Normal) Range: 250-450 3-Zlw-485484:24 Ferritin (60870) Comments: PATIENT NOT FASTINGPERFORMED BY: LabTellyo Pggokx4256 An[facility] [id number] BY: [address] [id number] Ferritin, Serum 72 ng/mL (Normal) Range: 15-150 6-Ofz-944764:08 Ferritin (64528) Comments: PATIENT NOT FASTINGPERFORMED BY: [facility]6370 [facility] [id number] Ferritin, Serum 52 ng/mL (Normal) Range: 15-150 6-Xxr-714292:08 CBC (Auto) (06591) Comments: PATIENT NOT FASTINGPERFORMED BY: [facility]Core[facility]6370 [facility] [id number] Platelets 293 {x10E3/uL} (Normal) Range: 150-379 RDW 18.9 % (Abnormal) Range: 12.3-15.4 MCHC 32.1 g/dL (Normal) Range: 31.5-35.7 MCH 29.2 pg (Normal) Range: 26.6-33.0 MCV 91 fL (Normal) Range: 79-97 Hematocrit 41.7 % (Normal) Range: 34.0-46.6 Hemoglobin 13.4 g/dL (Normal) Range: 11.1-15.9 RBC 4.59 {x10E6/uL} (Normal) Range: 3.77-5.28 WBC 6.8 {x10E3/uL} (Normal) Range: 3.4-10.8 :08 TSH (52008) Comments: PATIENT NOT FASTINGPERFORMED BY: [facility]6370 [facility] [id number] TSH 0.117 {uIU/mL} (Abnormal) Range: 0.450-4.500 9-Tkm-224802:08 T4, FREE (THYROXINE) (12135) Comments: PATIENT NOT FASTINGPERFORMED BY: LabCore[facility]6370 [facility] [id number] T4,Free(Direct) 1.86 ng/dL (Abnormal) Range: 0.82-1.77 36-Dgm-845503:31 T4, FREE (THYROXINE) Comments: recheck in 6 weeks; PATIENT NOT FASTINGPERFORMED BY: [facility]6370 [facility] [id number] Information: DIFFICULT DRAW (91830) T4,Free(Direct) 1.57 ng/dL (Normal) Range: 0.82-1.77 :31 T3, FREE (TRIDOTHYRONINE) (70149) Comments: recheck in 6 weeks; PATIENT NOT FASTINGPERFORMED BY: Piehole Hwyxue5541 [facility] [id number] Triiodothyronine,Free,Serum 2.3 pg/mL (Normal) Range: 2.0-4.4 :31 TSH (05622) Comments: recheck in 6 weeks; PATIENT NOT FASTINGPERFORMED BY: [employer] Ilwdrh0331 [place] [id number] TSH 0.920 {uIU/mL} (Normal) Range: 0.450-4.500 :58 Protein Electro, Random Urine Comments: PATIENT NOT FASTINGPERFORMED BY: Piehole Idwqwe3525 Anand [facility] [id number] Please note: SPRCS (Normal) Comments: Protein electrophoresis scan will follow via computer, mail, orcourier delivery. M-Navarro, % Not Observed % (Normal) Gamma Globulin, U 42.4 % (Normal) Beta Globulin, U 19.9 % (Normal) Htxgn-6-Pjlpbdlp, U 8.9 % (Normal) Cgups-5-Oqgktxct, U 6.0 % (Normal) Albumin, U 22.7 % (Normal) Protein,Total,Urine 58.1 mg/dL (Normal) :58 TSH (01077) Comments: PATIENT NOT FASTINGPERFORMED BY: SeevibesCo Mlkert2274 [facility]and [facility] [id number] TSH 0.056 {uIU/mL} (Abnormal) Range: 0.450-4.500 :58 T3, FREE (TRIDOTHYRONINE) (88263) Comments: PATIENT NOT FASTINGPERFORMED BY: SeevibesCo Zuhhdk2013 [facility]and [facility] [id number] Triiodothyronine,Free,Serum 2.4 pg/mL (Normal) Range: 2.0-4.4 :58 T4, FREE (THYROXINE) (70700) Comments: PATIENT NOT FASTINGPERFORMED BY: [facility]6370 [facility] [id number] T4,Free(Direct) 2.53 ng/dL (Abnormal) Range: 0.82-1.77 :58 IRON BINDING CAPACITY (TIBC) Comments: PATIENT NOT FASTINGPERFORMED BY: [facility]6370 [facility] [id number] (52816) Iron Saturation 4 % (Abnormal) Range: 15-55 Iron, Serum 18 ug/dL (Abnormal) Range: 27-139 UIBC 388 ug/dL (Abnormal) Range: 118-369 Iron Bind.Cap.(TIBC) 406 ug/dL (Normal) Range: 250-450 :58 FERRITIN (31538) Comments: PATIENT NOT FASTINGPERFORMED BY: [facility]6370 [facility] [id number] Ferritin, Serum 24 ng/mL (Normal) Range: 15-150 :58 Sed Rate Erythrocyte (81462) Comments: PATIENT NOT FASTINGPERFORMED BY: SeevibesCorewell [facility] Hospital6370 [facility] [id number] Sedimentation Rate-Westergren 73 mm/h (Abnormal) Range: 0-40 :58 Serum Protein Electrophoresis Comments: PATIENT NOT FASTINGPERFORMED BY: [facility]6370 [facility] [id number] (SPEP) (82397) Please note: SPRCS (Normal) Comments: Protein electrophoresis scan will follow via computer, mail, orcourier delivery. A/G Ratio 0.7 (Normal) Range: 0.7-1.7 Globulin, Total 4.2 g/dL (Abnormal) Range: 2.2-3.9 M-Navarro Not Observed g/dL (Normal) Gamma Globulin 1.2 g/dL (Normal) Range: 0.4-1.8 Beta Globulin 1.4 g/dL (Abnormal) Range: 0.7-1.3 Idhjj-5-Oanidsxp 1.1 g/dL (Abnormal) Range: 0.4-1.0 Myucd-7-Jvzfwzly 0.4 g/dL (Normal) Range: 0.0-0.4 Albumin 3.1 g/dL (Normal) Range: 2.9-4.4 :58 MAGNESIUM (90872) Comments: PATIENT NOT FASTINGPERFORMED BY: CB [facility] Tcdnoh9216 Anand RoadDublin [place] [id number] Magnesium, Serum 1.8 mg/dL (Normal) Range: 1.6-2.3 :58 PHOSPHORUS (80390) Comments: PATIENT NOT FASTINGPERFORMED BY: CB [facility] Hdzyci3869 Anand RoadDublin [place] [id number] Phosphorus, Serum 4.7 mg/dL (Abnormal) Range: 2.5-4.5 :58 CALCIFEDIOL (86361) Comments: PATIENT NOT FASTINGPERFORMED BY: CB [facility] Ijijei8769 Anand RoadDublin [place] [id number] Vitamin D, 25-Hydroxy 34.5 ng/mL (Normal) Range: 30.0-100.0 Comments: Vitamin D deficiency has been defined by the [place] ofUniversity [facility] Sam[facility] Medical Centercine and an Endocrine Society practice guideline as alevel of serum 25-OH vitamin D less than 20 ng/mL (1,2).The Endocrine Society went on to further define vitamin Dinsufficiency as a level between 21 and 29 ng/mL (2).1. IOM ([place] of Medicine). 2010. Dietary reference intakes for calcium and D. [place]: The National Academies Press.2. Justin MF, Jazmyn NC, Aniya CANO, et al. Evaluation, treatment, and prevention of vitamin D deficiency: an Endocrine Society clinical practice guideline. JCEM. 2010; 96(7):1911-30. :58 PARATHORMONE (02868) Comments: PATIENT NOT FASTINGPERFORMED BY: CB [facility] Eoqxcr7977 Anand RoadDublin [place] [id number] PTH, Intact 41 pg/mL (Normal) Range: 15-65 :58 METABOLIC PANEL, Comments: PATIENT NOT FASTINGPERFORMED BY: CB [facility] Svvlot6982 Anand RoadDublin [place] [id number] Information: DIFFICULT DRAW COMPREHENSIVE (92136) ALT (SGPT) 21 [iU]/L (Normal) Range: 0-32 [...] Glucose, Serum 63 mg/dL (Abnormal) Range: 65-99 9-Iht-138136:04 Vitamin B-12 (cyanocobalamin) Comments: PATIENT WAS FASTINGPERFORMED BY: Piehole[address] [id number] BY: [place] 2475770 [facility] [id number] (79976) Vitamin B12 >2000 pg/mL (Abnormal) Range: 211-946 1-Hkk-740091:04 CBC WITH MANUAL DIFF Comments: PATIENT WAS FASTINGPERFORMED BY: SeevibesCo[address] [id number] BY: LabCoJasmine Ville 5829770 [facility] [id number] (06621) Immature Grans (Abs) 0.0 {x10E3/uL} (Normal) Range: [...] 3.77-5.28 WBC 7.6 {x10E3/uL} (Normal) Range: 3.4-10.8 5-Ywn-395558:04 LIPOPROTEIN, BLD, BY NMR Comments: PATIENT WAS FASTINGPERFORMED BY: LabCo[address] [id number] BY: LabCoInspira Medical Center VinelandGmxeun6749 [facility] [id number] (65599) LP-IR Score 33 (Normal) Comments: INSULIN RESISTANCE MARKER <--Insulin Sensitive Insulin Resistant--> Percentile in Reference PopulationInsulin Resistance ScoreLP-IR Score Low 25th 50th 75th High <27 27 45 63 >63LP-IR Score is inaccurate if patient is non-fasting. .The LP-IR score is a laboratory developed i [facility] that has beenassociated with insulin [...] were developed and their performance characteristicsdetermined by [employer]. These assays have not been cleared by [...] 1600 - 2000 Very High > 2000 68-Emo-079526:36 UPEP (06004) Comments: PATIENT WAS FASTINGPERFORMED BY: [employer] [place] [id number] Please note: SPRCS (Normal) Comments: Protein electrophoresis scan will follow via computer, mail, orcourier delivery. M-Navarro, % Not Observed % (Normal) Gamma Globulin, U 26.0 % (Normal) Beta Globulin, U 31.1 % (Normal) Mitpt-6-Wmywhmov, U 9.8 % (Normal) Jlukq-8-Kmhbkrfr, U 2.5 % (Normal) Albumin, U 30.7 % (Normal) Protein,Total,Urine 35.3 mg/dL (Normal) 51-Nwd-968888:36 SPEP (63728) Comments: PATIENT WAS FASTINGPERFORMED BY: [employer] [place] [id number] Please note: SPRCS (Normal) Comments: Protein electrophoresis scan will follow via computer, mail, orcourier delivery. A/G Ratio 0.7 (Normal) Range: 0.7-1.7 Globulin, Total 4.2 g/dL (Abnormal) Range: 2.2-3.9 M-Navarro Not Observed g/dL (Normal) Gamma Globulin 1.0 g/dL (Normal) Range: 0.4-1.8 Beta Globulin 1.5 g/dL (Abnormal) Range: 0.7-1.3 Zhoet-5-Yvmeoqzb 1.3 g/dL (Abnormal) Range: 0.4-1.0 Pjdtc-3-Ptwwvztz 0.4 g/dL (Normal) Range: 0.0-0.4 Albumin 3.0 g/dL (Normal) Range: 2.9-4.4 58-Rgh-817534:36 Lipid Panel (60423) Comments: PATIENT WAS FASTINGPERFORMED BY: JumbletsCounts include 234 beds at the [facility] [id number] LDL/HDL Ratio 0.9 {ratio_units} (Normal) Range: 0.0-3.2 [...] Cholesterol, Total 153 mg/dL (Normal) Range: 100-199 62-Giu-378505:36 Metabolic Panel, Comprehensive Comments: PATIENT WAS FASTINGPERFORMED BY: LabCoInspira Medical Center VinelandFdwyjx0323 [facility] [id number] (05658) ALT (SGPT) 18 [iU]/L (Normal) Range: 0-32 [...] Glucose, Serum 103 mg/dL (Abnormal) Range: 65-99 :36 CBC WITH MANUAL DIFF Comments: PATIENT WAS FASTINGPERFORMED BY: [facility] [facility] [id number] Information: DIFFICULT DRAW (14095) Immature Grans (Abs) 0.0 {x10E3/uL} (Normal) Range: [...] 3.77-5.28 WBC 7.1 {x10E3/uL} (Normal) Range: 3.4-10.8 [id number]:36 LDH (LD) (LACTATE DEHYDROGENASE) Comments: PATIENT WAS FASTINGPERFORMED BY: [facility] [facility] [id number] ([id number]) LDH 161 [iU]/L (Normal) Range: 119-226 [id number]-Yrr-[id number]:36 Vitamin B-12 (cyanocobalamin) Comments: PATIENT WAS FASTINGPERFORMED BY: [facility] [place] [facility] [id number] (98148) Vitamin B12 717 pg/mL (Normal) Range: 211-946 72-Dgc-131013:36 Iron Binding Capacity (TIBC) Comments: PATIENT WAS FASTINGPERFORMED BY: SeevibesCitizens Memorial HealthcareLnmucn8158 [facility] [id number] (44854) Iron Saturation 7 % (Abnormal) Range: 15-55 Iron, Serum 29 ug/dL (Normal) Range: 27-139 UIBC 386 ug/dL (Abnormal) Range: 118-369 Iron Bind.Cap.(TIBC) 415 ug/dL (Normal) Range: 250-450 55-Xii-274397:36 Ferritin (51027) Comments: PATIENT WAS FASTINGPERFORMED BY: SeevibesCitizens Memorial HealthcareTufste6692 [facility] [id number] Ferritin, Serum 43 ng/mL (Normal) Range: 15-150 87-Ooq-988046:36 Folic Acid Serum (94049) Comments: PATIENT WAS FASTINGPERFORMED BY: SeevibesCitizens Memorial HealthcareNcwros5768 [facility] [id number] Folate (Folic Acid), Serum 11.3 ng/mL (Normal) Comments: A serum folate concentration of less than 3.1 ng/mL isconsidered to represent clinical deficiency. 93-Wjq-449289:36 TSH (43290) Comments: PATIENT WAS FASTINGPERFORMED BY: SeevibesCorewell Health Ludington Hospital6370 [facility] [id number] TSH 0.530 {uIU/mL} (Normal) Range: 0.450-4.500 68-Qvg-232828:36 T4, FREE (THYROXINE) (50644) Comments: PATIENT WAS FASTINGPERFORMED BY: SeevibesCorewell Health Ludington Hospital6370 [facility] [id number] T4,Free(Direct) 1.90 ng/dL (Abnormal) Range: 0.82-1.77 :36 T3, FREE (TRIDOTHYRONINE) (63043) Comments: PATIENT WAS FASTINGPERFORMED BY: [facility] Wlpzny9375 [facility] [id number] Triiodothyronine,Free,Serum 1.9 pg/mL (Abnormal) Range: 2.0-4.4 :23 CBC W/Diff, Automated Comments: [facility] F[address]lsduw[address] [place], [place], [address] Absolute Lymph 2.62 {X10_3/ul} (Normal) Range: 0.83-4.51 [...] 4.2-5.4 WBC 6.5 K/mm3 (Normal) Range: 4.4-11.0 :23 Comprehensive Metabolic Profil Comments: [facility] Gzocryllfs[address] [place], [place], [address] GAP 7 (Normal) Range: 5-15 CO2 27.0 [...] (Normal) Range: 70-110 :23 Free T3 Comments: [facility] Ztbpfwpfbt[address] [place], [place], [id number] FREE T3 1.3 pg/mL (Abnormal) Range: 2.18-3.98 :23 Lipase Comments: [facility] Owftzqwnoe7[address] [place], [address] LIPASE 130 U/L (Normal) Range: 73-393 :23 T4 Free Direct Comments: [facility] Zdtszlihch84[address] [place], [id number] T4 FREE DIRECT 1.45 ng/dL (Normal) Range: 0.76-1.46 :23 Thyroid Stim Hormone (TSH) Comments: [facility] Rakhvevytt2644 [address] [place], [address] TSH 17.10 {uIU/mL} (Abnormal) Range: 0.358-3.74 :22 CRP Comments: Order Date: 11/22/15Order Date: 11/22/15[place] [address] [address] [place], [id number] C-REACTIVE PROT 11.80 mg/L (Abnormal) Range: 0.0-3.0 Comments: C-Reactive Protein (CRP) provides useful information for thediagnosis, therapy and monitoring of inflammatory processesand associated diseases. For the evaluation of Relative Riskfor Cardiovascular Dise ase, a High Sensitivity CRP (HSCRP)should be ordered. :22 Erythrocyte Sed Rate Comments: Order Date: 11/22/15Interface Comments: Reason:Order Date: 11/22/15[place] [address] [address] [place], [address] SED RATE 83 mm/h (Abnormal) Range: 0-30 4-Kkq-570804:29 Culture, Wound Comments: [facility] Ujurckcxqi[address] [place], [id number] CUW See Note (Normal) Comments: Order Date: 11/22/15 Gram StainGram Stain 1+ Red Cell Stroma Rare Gram positive cocci Wound CulturePossible skin contamination, further Identification and sensitivity will be performed only by physi jamshid's request. ORGANISM 1: Coag Negative StaphAmount Growth Rare :11 CBC W/Diff, Automated Comments: [place] [address] [address] [place], [address] Absolute Lymph 2.98 {X10_3/ul} (Normal) Range: 0.83-4.51 [...] 4.2-5.4 WBC 6.9 K/mm3 (Normal) Range: 4.4-11.0 98-Uxz-37867:11 Comprehensive Metabolic Profil Comments: Is Patient Taking Vitamins or Folic Acid Supplements? [facility] Bqmfmrqdlh[address] [place], [address] GAP 7 (Normal) Range: 5-15 CO2 28.0 [...] Patient Taking Vitamins or Folic Acid Supplements? [facility] Zwyqkkohry[address] [place], [place], [id number] CRP HIGH SENS 1.79 mg/L (Normal) Comments: Low Relative Risk of CVD <1.0 mg/L Average Relative Risk of CVD 1.0 - 3.0 mg/L High Relative Risk of CVD >3.0 mg/L :11 Erythrocyte Sed Rate Comments: [facility] Ezmprbfblp[address] [place], [place], [id number] SED RATE 37 mm/h (Abnormal) Range: 0-30 :11 Folates, (Folic Acid) Comments: Is Patient Taking Vitamins or Folic Acid Supplements? [facility] Ulnflsafnl[address] [place], [id number] FOLATES 30.20 ng/mL (Abnormal) Range: 3.1-17.5 :11 Lipid Profile Comments: Is Patient Taking Vitamins or Folic Acid Supplements? [facility] Fkuphstzsq4522 [place], [address] VLDL 16 mg/dL (Normal) Range: 5-40 [...] 200-240 mg/dL Borderline >240 mg/dL High Risk 40-Jde-15050:11 Vitamin B12 694 pg/mL (Normal) Comments: [facility] Avhlmbvjam2805 [address] [place], [address] Range: 211-911 00-Vae-81243:11 Vitamin D,25 Hydroxy Comments: [facility] Gkcpvbevhs35[address] [place], [address] Vitamin D 25-OH > 150.0 ng/mL [...] D test results. :01 Protein+Creatinine Ratio,Urine Comments: [facility] [address] [place], [place], [address] PROT:CRE RATIO 276 {mg/g_CRE} (Abnormal) Range: 0-200 PROTEIN,UR.RAN. 60.7 mg/dL (Abnormal) UR CREAT 220.00 mg/dL (Normal) :01 Renal Profile Comments: [facility] Ajmiigbfvz[address] [place], [place], [address] CO2 30.0 mmol/L (Normal) Range: 21.0-32.0 CL [...] 7-18 GLU 97 mg/dL (Normal) Range: 70-110 7-Ddx-196775:20 Urinalysis, Complete Comments: Order Date: 09/23/15Has pt arrived? YHow was Urine Obtained? I[facility] Yzuwvhrgib[address] [place], [address] YEAST-URINE 1+ {/hpf} (Normal) MUCUS, [...] CLARITY Sl. Cloudy (Normal) COLOR Yellow (Normal) 1-Ofh-862926:30 CBC W/Diff, Automated Comments: [facility] P[address]clifrdr6[address] [place], [address] Absolute Lymph 2.14 {X10_3/ul} (Normal) [...] 4.2-5.4 WBC 9.9 K/mm3 (Normal) Range: 4.4-11.0 0-Oir-690317:30 Comprehensive Metabolic Profil Comments: [facility] [address]iurn[address]jkos[address] [place], [place], [address] GAP 9 (Normal) Range: 5-15 CO2 20.0 [...] 7-18 GLU 107 mg/dL (Normal) Range: 70-110 8-Vky-054816:30 Lipase Comments: [facility] [address] [place], [address] LIPASE 542 U/L (Abnormal) Range: 73-393 :45 Vitamin B-12 (cyanocobalamin) Comments: PATIENT WAS FASTINGPERFORMED BY: [employer] Kwbrpq9539 [facility] [id number] (77416) Vitamin B12 998 pg/mL (Abnormal) Range: 211-946 :45 METABOLIC PANEL, COMPREHENSIVE Comments: PATIENT WAS FASTINGPERFORMED BY: [facility]CoIn[facility] VinelandHgkjxm5692 [facility] [id number] (61946) ALT (SGPT) 48 [iU]/L (Abnormal) Range: 0-32 [...] Glucose, Serum 98 mg/dL (Normal) Range: 65-99 :45 CBC with auto diff Comments: PATIENT WAS FASTINGPERFORMED BY: CRISTA [employer] Hkrtso4205 [facility] [id number] Information: [id number] (72747) Immature Grans (Abs) 0.0 {x10E3/uL} (Normal) Range: [...] 3.77-5.28 WBC 8.3 {x10E3/uL} (Normal) Range: 3.4-10.8 :45 TSH (77896) Comments: PATIENT WAS FASTINGPERFORMED BY: [address] [place] [id number] TSH 25.460 {uIU/mL} (Abnormal) Range: 0.450-4.500 47-Mir-227219:16 Renal Profile Comments: [facility] [address]wr[address] [place], [place], [address] CO2 23.0 mmol/L (Normal) Range: 21.0-32.0 CL [...] 7-18 GLU 108 mg/dL (Normal) Range: 70-110 75-Bnb-253306:07 Culture, Urine Comments: [facility] Sher[address]uprz[address] [place], [place], [address] CUUR See Note (Normal) Comments: Urine CultureORGANISM 1: Streptococcus mitis/ oralisColony Count 50,000-80,000 Streptococcus mitis/ oralis: REACTION Ampicillin $ <=0.25 S Benzylpenicillin NF 8 R Ceftriaxone (other dx) $ <=0.12 S Levofloxacin $ 8 R Tetracycline NF >=16 R Vancomycin $ 0.25 S(NF) indicates non-formulary drug at [facility]. Approval by Infectious Disease Specialist required b efore non-formulary drugs may be ordered and/or dispensed. * CLSI guidelines does not recommend testing of cephalosporins. This interpretation is deduced from Beta-lactam/penicillin results. :58 CALCIFIDIOL (25135) VIT D 25 Comments: PATIENT NOT FASTINGPERFORMED BY: SeevibesCorewell Health Ludington Hospital6370 [facility] [id number] Vitamin D, 25-Hydroxy 43.7 ng/mL (Normal) Range: 30.0-100.0 Comments: Vitamin D deficiency has been defined by the [place] ofUniversity [facility] Medical Centercine and an Endocrine Society practice guideline as alevel of serum 25-OH vitamin D less than 20 ng/mL (1,2).The Endocrine Society went on to further define vitamin Dinsufficiency as a level between 21 and 29 ng/mL (2).1. IOM ([place] of Medicine). 2010. Dietary reference intakes for calcium and D. [place]: The National Academies Press.2. Justin MF, Jazmyn FOSTER, Aniya CANO, et al. Evaluation, treatment, and prevention of vitamin D deficiency: an Endocrine Society clinical practice guideline. JCEM. 2010; 96(7):1911-30. :58 METABOLIC PANEL, Comments: PATIENT NOT FASTINGPERFORMED BY: [facility]CoIn[facility] VinelandBnxhqo9171 [facility] [id number] Information: [id number] DIFFICULT D RAW; apt. 4-25 COMPREHENSIVE (61519) ALT (SGPT) 11 [iU]/L (Normal) Range: 0-32 [...] Glucose, Serum 95 mg/dL (Normal) Range: 65-99 :59 Metabolic Panel, Basic Comments: PATIENT NOT FASTINGPERFORMED BY: [facility]CoIn[facility] VinelandDeuorr0567 [facility] [id number] Information: [id number] (39881) Calcium, Serum 7.8 mg/dL (Abnormal) Range: 8.7-10.3 [...] (Abnormal) Range: 65-99 Comments: Client Requested Flag :23 Urinalysis, Office (63739) UA - LEUKOCYTE ESTERASE Trace (Normal) UA - NITRITE Negative (Normal) URINE UROBILINGN EVY TIMED Normal mg/dL (Normal) UA - PROTEIN 30 mg/dL (Normal) UA - PH 6.0 (Normal) UA - BLOOD Negative (Normal) UA - SPECIFIC GRAVITY 1.025 (Normal) UA - KETONES Negative mg/dL (Normal) UA - BILIRUBIN Negative (Normal) UA - GLUCOSE Negative (Normal) 0-Baz-852258:01 Metabolic Panel, Comments: PATIENT NOT FASTINGPERFORMED BY: [place]esBr[place] 7416370 [facility] [id number] Information: [id number] Comprehensive (81660) ALT (SGPT) 52 [iU]/L (Abnormal) Range: 0-32 [...] cells when received.This may adversely affect serumChemistries. 57-Nff-702158:30 Metabolic Panel, Comments: PATIENT NOT FASTINGPERFORMED BY: [facility]6370 [facility] [id number] Information: [id number] Comprehensive (15923) ALT (SGPT) 9 [iU]/L (Normal) Range: 0-32 [...] (Prothrobim Time) Comments: PATIENT NOT FASTINGPERFORMED BY: [facility]CoIn[facility] VinelandDatwrt3903 [facility] [id number] Information: [id number] (11138) Prothrombin Time 12.6 {sec} (Abnormal) Range: 9.1-12.0 INR 1.2 (Normal) Range: 0.8-1.2 Comments: Reference interval is for non-anticoagulated patients. . Suggested INR therapeutic range for Vitamin K anta gonist therapy: Standard Dose (moderate intensity therapeutic range): 2.0 - 3.0 Higher intensity therapeutic range 2.5 - 3.5 04-Cqs-232523:50 Urinalysis, Office (56610) UA - LEUKOCYTE ESTERASE Trace (Normal) UA - NITRITE Negative (Normal) URINE UROBILINGN EVY TIMED Normal mg/dL (Normal) UA - PROTEIN 100 mg/dL (Normal) UA - PH 6.0 (Normal) UA - BLOOD Non Hemolyzed Trace (Normal) UA - SPECIFIC GRAVITY 1.030 (Abnormal) UA - KETONES Negative mg/dL (Normal) UA - BILIRUBIN Negative (Normal) UA - GLUCOSE Negative (Normal) 22-Ayd-167650:26 URINE CARMEN CULTURE (EVY Comments: PATIENT NOT FASTINGPERFORMED BY: JumbletsCounts include 234 beds at the [facility] [id number] Information: SRC:[facility] [id number] COL COUNT) (04314) Result 1 NG36 (Normal) Comments: No growth in 36 - 48 hours. Urine Culture,Comprehensive Final report (Normal) 0-Xcq-330882:08 Vitamin B-12 (cyanocobalamin) Comments: in six months (approximately); PATIENT WAS FASTINGPERFORMED BY: [employer]6370 [employer] DiagnosticsCounts include 234 beds at the [facility] [id number] (97526) Vitamin B12 433 pg/mL (Normal) Range: 211-946 6-Icq-362970:08 CBC W/AUTO DIFF WBC Comments: in six months (approximately); PATIENT WAS FASTINGPERFORMED BY: [employer]6370 [employer] DiagnosticsCounts include 234 beds at the [facility] [id number] Information: [id number] (94394) Immature Grans (Abs) 0.0 {x10E3/uL} (Normal) Range: [...] 3.77-5.28 WBC 5.2 {x10E3/uL} (Normal) Range: 3.4-10.8 9-Hix-705578:08 TSH (65055) Comments: in six months (approximately); PATIENT WAS FASTINGPERFORMED BY: SeevibesCorewell Health Ludington Hospital6370 [facility] [id number] TSH 0.802 {uIU/mL} (Normal) Range: 0.450-4.500 20-Nkt-566391:38 METABOLIC PANEL, Comments: in six months (approximately); PATIENT NOT FASTINGPERFORMED BY: [facility]6370 [facility] [id number] Information: [id number] COMPREHENSIVE (68105) ALT (SGPT) 10 [iU]/L (Normal) Range: 0-32 [...] Glucose, Serum 91 mg/dL (Normal) Range: 65-99 4-Pdi-675436:08 LIPID PANEL (16547) Comments: in six months (approximately); PATIENT WAS FASTINGPERFORMED BY: [employer]70 [employer] DiagnosticsCounts include 234 beds at the [facility] [id number]; apt. 16 LDL/HDL Ratio 0.8 {ratio_units} (Normal) Range: 0.0-3.2 [...] Cholesterol, Total 205 mg/dL (Abnormal) Range: 100-199 6-Okh-620585:08 PT (Prothrobim Time) (97898) Comments: today; PATIENT WAS FASTINGPERFORMED BY: JumbletsCounts include 234 beds at the [facility] [id number]; inr not need addressed patient on [employer] Prothrombin Time 11.0 {sec} (Normal) Range: 9.1-12.0 INR 1.1 (Normal) Range: 0.8-1.2 Comments: Reference interval is for non-anticoagulated patients. . Suggested INR therapeutic range for Vitamin K anta gonist therapy: Standard Dose (moderate intensity therapeutic range): 2.0 - 3.0 Higher intensity therapeutic range 2.5 - 3.5 1-Nqk-783557:08 POTASSIUM SERUM (98786) Comments: today; PATIENT WAS FASTINGPERFORMED BY: [employer] Ebdcpw3958 [facility] [id number] Potassium, Serum 4.4 mmol/L (Normal) Range: 3.5-5.2 14-Twn-27202:41 Comp. Metabolic Panel (14) Comments: PATIENT NOT FASTINGPERFORMED BY: [employer] Wedvlp3726 [facility]andBothwell [facility] [id number] Information: [id number] DIFFICULT D RAW ALT (SGPT) 10 [iU]/L [...] Microscopic Examination Comments: PATIENT NOT FASTINGPERFORMED BY: Piehole Diitqs8630 [facility] [id number] Bacteria Few (Normal) Mucus Threads Present (Normal) Epithelial Cells (non renal) 0-10 {/hpf} (Normal) Range: 0 - 10 RBC 0-2 {/hpf} (Normal) Range: 0 - 2 WBC >30 {/hpf} (Abnormal) Range: 0 - 5 :41 Urinalysis, Complete Comments: PATIENT NOT FASTINGPERFORMED BY: Piehole Ypulvu3321 [facility] [id number] Microscopic Examination See below: (Normal) Comments: Microscopic was indicated and was performed. Nitrite, Urine Negative (Normal) Urobilinogen,Semi-Qn 0.2 mg/dL (Normal) Range: 0.0-1.9 Bilirubin Negative (Normal) Occult Blood Negative (Normal) Ketones Negative (Normal) Glucose Negative (Normal) Protein Trace (Normal) WBC Esterase 2+ (Abnormal) Appearance Cloudy (Abnormal) Urine-Color Yellow (Normal) pH 6.0 (Normal) Range: 5.0-7.5 Specific [place] 1.015 (Normal) Range: 1.005-1.030 :49 Prothrombin Time (PT) Comments: PATIENT NOT FASTINGPERFORMED BY: SeevibesCorewell Health [facility] Hospital6370 [facility] [id number] Information: [id number] Prothrombin Time 28.9 {sec} (Abnormal) Range: 9.1-12.0 INR 2.7 (Abnormal) Range: 0.8-1.2 Comments: Reference interval is for non-anticoagulated patients. . Suggested INR therapeutic range for Vitamin K anta gonist therapy: Standard Dose (moderate intensity therapeutic range): 2.0 - 3.0 Higher intensity therapeutic range 2.5 - 3.5 36-Qff-206816:49 Prothrombin Time (PT) Comments: PATIENT NOT FASTINGPERFORMED BY: [place] 2475770 [facility] [id number] Information: [id number] Prothrombin Time 31.0 {sec} (Abnormal) Range: 9.1-12.0 INR 2.8 (Abnormal) Range: 0.8-1.2 Comments: Reference interval is for non-anticoagulated patients. . Suggested INR therapeutic range for Vitamin K anta gonist therapy: Standard Dose (moderate intensity therapeutic range): 2.0 - 3.0 Higher intensity therapeutic range 2.5 - 3.5 :28 Eosinophil, Urine (00121) Comments: PATIENT NOT FASTINGPERFORMED BY: [address] [id number] Information: [id number] Eosinophil, Urine No Eosinophils Seen % Comments: <5% few or none seenReceived at room temperature;interpret result with caution. (Normal) :28 Eosinophil, Urine (37449) Comments: PATIENT NOT FASTINGPERFORMED BY: [place] 2475770 [facility] [id number] Information: [id number] Eosinophil, Urine No Eosinophils Seen % Comments: <5% few or none seenReceived at room temperature;interpret result with caution. (Normal) :54 Basic Metabolic Profile (BMP) Comments: Test performed at:[facility] [address] [place] [address] GAP 5 (Normal) Range: 5-15 CO2 27.0 [...] :54 Microalb:Creat Ratio,Random UR Comments: Test performed at:[facility] Hfxtvtqyqe1515 [facility] [place] [address] MALB:CREAT 44.5 {mg/g_CRE} (Abnormal) MICROALBUMIN,UR 52.7 mg/L (Normal) UR CREAT 118.2 mg/dL (Normal) :54 Urinalysis, Routine (Dipstick) Comments: How was Urine Obtained? CLEAN CATCHTest performed at:[facility] Bxuckcfrwm[address]97 [place] [address] LEUK ESTERASE 100 /ul (Abnormal) OCCULT BLOOD-UR 10 /ul (Abnormal) NITRITE UR Negative (Normal) UROBILI Normal mg/dL (Normal) PROT DIPSTX 15 mg/dL (Abnormal) pH UR 5.0 (Normal) Range: 5.0 - 8.0 SP.GR. DIPSTX 1.020 (Normal) Range: 1.002-1.030 KETONE UR Negative mg/dL (Normal) BILIRUBIN URINE Negative mg/dL (Normal) GLUCOSE, UR Normal mg/dL (Normal) CLARITY Sl. Cloudy (Normal) COLOR Yellow (Normal) 35-Kec-865101:07 Eosinophil, Urine (88679) Comments: PATIENT NOT FASTINGPERFORMED BY: JumbletsCounts include 234 beds at the [facility] [id number] Information: [id number] Eosinophil, Urine 5 % (Normal) Comments: <5% few or none seenReceived at room temperature;interpret result with caution. 65-Tzw-281920:10 MICROALBUMIN: CREATININE RATIO Comments: recheck in 6 weeks; PATIENT NOT FASTINGPERFORMED BY: JumbletsCounts include 234 beds at the [facility] [id number] (59744) AND (24444) Microalb/Creat Ratio 92.2 {mg/g_creat} (Abnormal) Range: 0.0-30.0 Microalbumin, Urine 180.9 ug/mL (Abnormal) Range: 0.0-17.0 Creatinine, Urine 196.2 mg/dL (Normal) Range: 15.0-278.0 80-Iyl-346842:10 Metabolic Panel, Basic Comments: recheck in 6 weeks; PATIENT NOT FASTINGPERFORMED BY: PieholeInspira Medical Center VinelandDiikxg7999 [facility] [id number] Information: [id number] (79998) Calcium, Serum 9.2 mg/dL (Normal) Range: 8.7-10.3 [...] Glucose, Serum 89 mg/dL (Normal) Range: 65-99 :21 CALCIFIDIOL (33256) VIT D 25 Comments: PATIENT NOT FASTINGPERFORMED BY: PieholeInspira Medical Center VinelandYuymjg2190 [facility] [id number] Vitamin D, 25-Hydroxy 35.5 ng/mL (Normal) Range: 30.0-100.0 Comments: Vitamin D deficiency has been defined by the [place] ofMedicine and an Endocrine Society practice guideline as alevel of serum 25-OH vitamin D less than 20 ng/mL (1,2).The Endocrine Society went on to further define vitamin Dinsufficiency as a level between 21 and 29 ng/mL (2).1. IOM ([place] of Medicine). 2010. Dietary reference intakes for calcium and D. [place]: The National Academies Press.2. Justin MF, Jazmyn FOSTER, Aniya CANO, et al. Evaluation, treatment, and prevention of vitamin D deficiency: an Endocrine Society clinical practice guideline. JCEM. 2010; 96(7):1911-30. 0-Mvc-686686:22 Total Protein,24 Hour Urine Comments: PATIENT NOT FASTINGPERFORMED BY: CRISTA SeevibesSainte Genev[facility] Xedicn1918 [facility] [id number] (31351) Prot,24hr calculated 196.5 {mg/24_hr} (Abnormal) Range: 30.0-150.0 Protein,Total,Urine 39.3 mg/dL (Abnormal) Range: 0.0-15.0 :22 CREATININE CLEARANCE Comments: PATIENT NOT FASTINGPERFORMED BY: [facility]6370 [facility] [id number] Information: SRC:UR [id number] START- 4@[address] [facility] (35789) Creatinine Clearance 29 mL/min (Abnormal) Range: 88-128 [...] Comments: standing order; PATIENT NOT FASTINGPERFORMED BY: [facility]6370 [facility] [id number] Information: [id number] (09912) Prothrombin Time 26.3 {sec} (Abnormal) Range: 9.1-12.0 INR 2.4 (Abnormal) Range: 0.8-1.2 Comments: Reference interval is for non-anticoagulated patients. . Suggested INR therapeutic range for Vitamin K anta gonist therapy: Standard Dose (moderate intensity therapeutic range): 2.0 - 3.0 Higher intensity therapeutic range 2.5 - 3.5 :36 Request Problem Comments: PATIENT NOT FASTINGPERFORMED BY: [facility]6370 [facility] [id number] 88-Rre-007138:23 Vitamin B-12 (cyanocobalamin) Comments: PATIENT NOT FASTINGPERFORMED BY: CRISTA Eric6370 [facility] [id number] (58853) 71-Rgb-199781:23 TSH (65979) Comments: PATIENT NOT FASTINGPERFORMED BY: CRISTA Valenzuela Sadlkk4346 [facility] [id number] 33-Ebr-262326:23 PT (Prothrobim Time) (97074) Comments: INR standing order do today also; PATIENT NOT FASTINGPERFORMED BY: CRISTA [employer]Co Alhubo1361 [facility] [id number] INR 1.8 (Abnormal) Range: 0.8-1.2 Comments: Reference interval is for non-anticoagulated patients. . Suggested INR therapeutic range for Vitamin K anta gonist therapy: Standard Dose (moderate intensity therapeutic range): 2.0 - 3.0 Higher intensity therapeutic range 2.5 - 3.5 Prothrombin Time 18.4 {sec} (Abnormal) Range: 9.1-12.0 71-Vnt-149284:23 METABOLIC PANEL, COMPREHENSIVE Comments: PATIENT NOT FASTINGPERFORMED BY: CRISTA MckeonCoyanely KellerColzuh8215 [facility] [id number] (85719) ALT (SGPT) 13 [iU]/L (Normal) Range: 0-32 [...] Glucose, Serum 75 mg/dL (Normal) Range: 65-99 24-Qsw-767167:23 LIPID PANEL (55871) Comments: PATIENT NOT FASTINGPERFORMED BY: Piehole Trtimv2265 [facility] [id number] LDL/HDL Ratio 1.1 {ratio_units} (Normal) Range: 0.0-3.2 LDL Cholesterol Calc 92 mg/dL (Normal) Range: 0-99 HDL Cholesterol 82 mg/dL (Normal) Comments: According to ATP-III Guidelines, HDL-C >59 mg/dL is considered anegative risk factor for CHD. VLDL Cholesterol Alesha 38 mg/dL (Normal) Range: 5-40 Cholesterol, Total 212 mg/dL (Abnormal) Range: 100-199 Triglycerides 192 mg/dL (Abnormal) Range: 0-149 14-Xji-812610:23 CBC WITH MANUAL DIFF Comments: PATIENT NOT FASTINGPERFORMED BY: PieholeInspira Medical Center VinelandVxrusi8985 [facility] [id number] Information: [id number], [id number]: [id number] (12770) Immature Grans (Abs) 0.0 {x10E3/uL} (Normal) Range: [...] 3.77-5.28 WBC 6.5 {x10E3/uL} (Normal) Range: 3.4-10.8 41-Mgs-514147:23 Sed Rate Erythrocyte (25545) Comments: PATIENT NOT FASTINGPERFORMED BY: Bumpr LabTellyoInspira Medical Center VinelandYhohqw7048 [facility] [id number] Sedimentation Rate-Westergren 16 mm/h (Normal) Range: 0-40 68-Gtu-990954:50 CBC with manual diff Comments: recheck in 4 weeks; PATIENT NOT FASTINGPERFORMED BY: Bumpr LabCoJasmine V[place] 5829770 [facility] [id number] Information: ADD [id number] AND DRAW FEE 99 2538 (93283) Immature Grans (Abs) 0.0 {x10E3/uL} (Normal) Range: [...] 3.77-5.28 WBC 10.5 {x10E3/uL} (Normal) Range: 3.4-10.8 74-Ehu-780873:50 Sed Rate Erythrocyte (67064) Comments: re check in 4 weeks; PATIENT NOT FASTINGPERFORMED BY: Piehole Sseitt5149 [facility] [id number] Sedimentation Rate-Westergren 39 mm/h (Normal) Range: 0-40 :48 PREALBUMIN (73561) Comments: PATIENT NOT FASTINGPERFORMED BY: Piehole eBuddyCounts include 234 beds at the [facility] [id number] Prealbumin 23 mg/dL (Normal) Range: 20-40 :48 Magnesium (71708) Comments: PATIENT NOT FASTINGPERFORMED BY: Piehole Egqhnj0792 [facility] [id number] Magnesium, Serum 1.8 mg/dL (Normal) Range: 1.6-2.6 77-Cuo-32929:48 Metabolic Panel, Comments: PATIENT NOT FASTINGPERFORMED BY: PieholeInspira Medical Center VinelandKkijuo[address] [place] [address] [id number] Information: [id number] Comprehensive (28633) ALT (SGPT) 12 [iU]/L (Normal) Range: 0-32 [...] Glucose, Serum 86 mg/dL (Normal) Range: 65-99 43-Odg-208565:15 CBC With Differential/Platelet Comments: PATIENT WAS FASTINGPERFORMED BY: PieholeInspira Medical Center VinelandQonauv6569 [facility] [id number] BY: [address] [id number] Immature Grans (Abs) 0.0 {x10E3/uL} (Normal) Range: [...] 3.77-5.28 WBC 5.9 {x10E3/uL} (Normal) Range: 4.0-10.5 16-Zww-982793:15 Comp. Metabolic Panel Comments: PATIENT WAS FASTINGPERFORMED BY: CB [facility] Jfpbvl5468 [facility] [id number] BY: BN [facility] [address] [id number] (14) ALT (SGPT) 7 [iU]/L (Normal) Range: [...] 16.5 umol/L Comments: PATIENT WAS FASTINGPERFORMED BY: [employer] [facility] [id number] BY: Seevibes[address] [id number] :15 Plasma (Abnormal) Range: 0.0-15.0 :15 Lipid Panel With LDL/HDL Comments: PATIENT WAS FASTINGPERFORMED BY: [employer] [id number] BY: Seevibes[address] [id number] Ratio LDL/HDL Ratio 0.7 {ratio_units} Range: 0.0-3.2 [...] nmol/L (Normal) Comments: PATIENT WAS FASTINGPERFORMED BY: [employer] [id number] BY: Piehole[address] [id number] 310:15 Serum Range: 73-376 Comments: The reference range for methylmalonic acid has been set at +3sd abovethe mean for healthy blood bank donors. In the clinical assessment ofpatients with megaloblastic anemias a cutoff of +3sd provides gr eaterspecificity in the diagnosis of the vitamin deficiency states,despite the sacrifice of some sensitivity. 17-Rrr-226879:15 Prothrombin Time (PT) Comments: PATIENT WAS FASTINGPERFORMED BY: [employer] [id number] BY: Piehole[address] [id number] Prothrombin Time 20.5 {sec} (Abnormal) Range: 9.1-12.0 INR 2.0 (Abnormal) Range: 0.8-1.2 Comments: Reference interval is for non-anticoagulated patients. . Suggested INR therapeutic range for Vitamin K anta gonist therapy: Standard Dose (moderate intensity therapeutic range): 2.0 - 3.0 Higher intensity therapeutic range 2.5 - 3.5 TSH 0.706 {uIU/mL} Comments: PATIENT WAS FASTINGPERFORMED BY: Uber Entertainmentlin6370 [facility] [id number] BY: [address] [id number] :15 (Normal) Range: 0.450-4.500 :15 Vitamin B12 and Folate Comments: PATIENT WAS FASTINGPERFORMED BY: PieholeInspira Medical Center VinelandHxtqqp0338 [facility] [id number] BY: Seevibes[address] [id number] Folate (Folic Acid), >19.9 ng/mL (Normal) Comments: A serum folate concentration of less than 3.1 ng/mL isconsidered to represent clinical deficiency. Serum Vitamin B12 561 pg/mL (Normal) Range: 211-946 Vitamin D, 49.7 ng/mL (Normal) Comments: PATIENT WAS FASTINGPERFORMED BY: Piehole Meizcy3743 [facility] [id number] BY: Seevibes[address] [id number] :15 25-Hydroxy Range: 30.0-100.0 Comments: Vitamin D deficiency has been defined by the [place] ofUniversity [facility] Centercine and an Endocrine Society practice guideline as alevel of serum 25-OH vitamin D less than 20 ng/mL (1,2).The Endocrine Society went on to further define vitamin Dinsufficiency as a level between 21 and 29 ng/mL (2).1. IOM ([place] of Medicine). 2010. Dietary reference intakes for calcium and D. [place]: The National Academies Press.2. Justin MF, Jazmyn NC, Aniya CANO, et al. Evaluation, treatment, and prevention of vitamin D deficiency: an Endocrine Society clinical practice guideline. JCEM. 2010; 96(7):1911-30. 78-Mro-885496:20 PT (Prothrobim Time) (48539) Comments: standing order; PATIENT NOT FASTINGPERFORMED BY: PieholeInspira Medical Center VinelandBvfcee6322 [facility] [id number] Prothrombin Time 28.6 {sec} (Abnormal) Range: 9.1-12.0 INR 2.8 (Abnormal) Range: 0.8-1.2 Comments: Reference interval is for non-anticoagulated patients. . Suggested INR therapeutic range for Vitamin K anta gonist therapy: Standard Dose (moderate intensity therapeutic range): 2.0 - 3.0 Higher intensity therapeutic range 2.5 - 3.5 03-Psi-139941:30 CBC With Differential/Platelet Comments: PERFORMED BY: CB [facility] Minljr1810 [place] [id number] BY: NINA [facility] Mixiipirry2297 [facility] [id number] Information: PER PST 03-07-12 RANDOM U Immature Grans (Abs) 0.0 [...] 3.77-5.28 WBC 9.1 {x10E3/uL} (Normal) Range: 4.0-10.5 13-Leh-929188:30 Chromium, Urine Comments: PERFORMED BY: [address] [id number] BY: [address] [id number] Chromium/Creat Ratio 0.2 {ug/g_creat} Range: 0.0-4.9 (Normal) Comments: Environmental Exposure: 0.0 - 4.9 Occupational Exposure: RAEGAN 25.0 Chromium, Urine 0.3 ug/L (Normal) Range: 0.1-2.0 Comments: Detection Limit = 0.10 Ferritin, Serum 64 ng/mL (Normal) Comments: PERFORMED BY: [address] [id number] BY: [address] [id number] 214:30 Range: 13-150 Homocyst(e)ine, Plasma 32.2 umol/L Comments: PERFORMED BY: [address] [id number] BY: [address] [id number] 214:30 (Abnormal) Range: 0.0-15.0 Iron, Serum 38 ug/dL (Normal) Comments: PERFORMED BY: [address] [id number] BY: [address] [id number] 214:30 Range: 35-155 - Magnesium, Serum 1.8 mg/dL (Normal) Comments: PERFORMED BY: [address] [id number] BY: [address] [id number] 214:30 Range: 1.6-2.6 Methylmalonic Acid, 525 nmol/L (Abnormal) Comments: PERFORMED BY: [address] [id number] BY: [address] [id number] 214:30 Serum Range: 73-376 Comments: Verified by repeat analysisThe reference range for methylmalonic acid has been set at +3sd abovethe mean for healthy blood bank donors. In the clinical assessment ofpatients with megaloblastic anemi as a cutoff of +3sd provides greaterspecificity in the diagnosis of the vitamin deficiency states,despite the sacrifice of some sensitivity. Phosphorus, Serum 3.6 mg/dL (Normal) Comments: PERFORMED BY: [facility]70 Anand RoadDublin [place] [id number] BY: [address] [id number] 214:30 Range: 2.5-4.5 PTH, Intact 32 pg/mL (Normal) Comments: PERFORMED BY: [facility]70 Anand RoadDublin [place] [id number] BY: [address] [id number] 214:30 Range: 15-65 Sedimentation 21 mm/h (Normal) Comments: PERFORMED BY: [employer] [facility]6370 [address] RoadDublin [place] [id number] BY: [address] [id number] 214:30 Rate-Westergren Range: 0-40 Vitamin A, Serum 88 ug/dL (Abnormal) Comments: PERFORMED BY: [facility] [facility]6[address] RoadDublin [place] [id number] BY: [address] [id number] 214:30 Range: 18-77 47-Oqw-280741:30 Vitamin B12 and Folate Comments: PERFORMED BY: [employer] [facility] RoadDublin [place] [id number] BY: [address] [id number] Folate (Folic Acid), >19.9 ng/mL (Normal) Comments: A serum folate concentration of less than 3.1 ng/mL isconsidered to represent clinical deficiency. Serum Vitamin B12 326 pg/mL (Normal) Range: 211-946 Vitamin D, 21.0 ng/mL Comments: PERFORMED BY: PieholeJasmine [place] 5829770 [facility] [id number] BY: [address] [id number] :30 25-Hydroxy (Abnormal) Range: 30.0-100.0 Comments: Vitamin D deficiency has been defined by the [place] ofMedicine and an Endocrine Society practice guideline as alevel of serum 25-OH vitamin D less than 20 ng/mL (1,2).The Endocrine Society went on to further define vitamin Dinsufficiency as a level between 21 and 29 ng/mL (2).1. IOM ([place] of Medicine). 2010. Dietary reference intakes for calcium and D. [place]: The National Academies Press.2. Justin MF, Jazmyn FOSTER, Aniya CANO, et al. Evaluation, treatment, and prevention of vitamin D deficiency: an Endocrine Society clinical practice guideline. JCEM. 2010; 96(7):1911-30. :30 Zinc, Urine Comments: PERFORMED BY: PieholeInspira Medical Center VinelandQgcnao6294 [facility] [id number] BY: [address] [id number] Zinc/Creat. Ratio 497 {ug/g_creat} (Normal) Range: 100-900 Creatinine(Retail And Promotions Coordinator),U 1.95 g/L (Normal) Range: 0.30-3.00 Comments: Detection Limit = 0.10 Zinc, Urine 970 ug/L (Normal) Comments: Detection Limit = 10 :19 ABDOMEN/PELVIS WITH CONTRAST Radiology Report See Note [...] Sarkar D.O.December 05, 2011 at 7:36:04 PM [id number] Signed IF/IF If you are the referring physician and would like to consult with theradiologist who provided this interpretation, please contact Fabian Sarkar D.O.at [phone]. If this radiologist is unavailable, you will be directedto another radiologist to assist. If you are a patient with a question regarding this report, pleasecontactyour referring physician directly. Professional Interpretation Provided By: [employer], Phone , Thes e documents contain legally [...] on 12/05/111942 Sign by: Fabian Sarkar DO 6-Aug-263097:10 Metabolic Panel, Comprehensive Comments: copy to Dr. parks; PATIENT NOT FASTINGPERFORMED BY: LabCoInspira Medical Center VinelandAroqbm5187 [facility] [id number] (35115) ALT (SGPT) 16 [iU]/L (Normal) Range: 0-40 [...] Glucose, Serum 85 mg/dL (Normal) Range: 65-99 2-Tma-771554:10 CBC, Platelets & Auto Diff Comments: PATIENT NOT FASTINGPERFORMED BY: CRISTA [facility] Juqtzm4378 [facility] [id number] Information: [id number] (41093) Immature Grans (Abs) 0.0 {x10E3/uL} (Normal) Range: [...] 3.77-5.28 WBC 8.1 {x10E3/uL} (Normal) Range: 4.0-10.5 8-Opi-598750:10 Sed Rate Erythrocyte (79957) Comments: PATIENT NOT FASTINGPERFORMED BY: Piehole Szjnjo5722 [facility] [id number] Sedimentation Rate-Westergren 53 mm/h (Abnormal) Range: 0-40 36-Tif-220511:14 Basic Metabolic Panel (8) Comments: PERFORMED BY: [employer] [facility] [id number] Calcium, Serum 9.9 mg/dL (Normal) Range: 8.6-10.2 [...] cells when received.This may adversely affect serumChemistries. 80-Cld-431186:14 Protein Electro, Random Urine Comments: PERFORMED BY: Piehole Ovhqgq7034 [facility] [id number] Please note: SPRCS (Normal) Comments: Protein electrophoresis scan will follow via computer, mail, orcourier delivery. Nnbfd-5-Fdideklo, U 8.9 % (Normal) Beta Globulin, U 25.6 % (Normal) Gamma Globulin, U 26.9 % (Normal) M-Navarro, % Not Observed % (Normal) Albumin, U 36.2 % (Normal) Ukjly-7-Jljnnjnn, U 2.5 % (Normal) Protein,Total,Urine 40.0 mg/dL (Abnormal) Range: 0.0-15.0 76-Dhi-361688:14 Protein Electro.,S Comments: PERFORMED BY: LabCoInsp[facility] Center VinelandElrbnc1091 [facility] [id number] Please note: SPRCS (Normal) Comments: Protein electrophoresis scan will follow via computer, mail, orcourier delivery. A/G Ratio 1.1 (Normal) Range: 0.7-2.0 Xpwzo-9-Mrwgrpne 0.2 g/dL (Normal) Range: 0.1-0.4 Gqchy-5-Byithpvm 0.9 g/dL (Normal) Range: 0.4-1.2 Beta Globulin 1.4 g/dL (Abnormal) Range: 0.6-1.3 Gamma Globulin 1.0 g/dL (Normal) Range: 0.5-1.6 Globulin, Total 3.5 g/dL (Normal) Range: 2.0-4.5 M-Navarro Not Observed g/dL (Normal) Albumin 4.0 g/dL (Normal) Range: 3.2-5.6 Protein, Total, Serum 7.5 g/dL (Normal) Range: 6.0-8.5 7-Uvg-150577:10 HEP-ABC [id number] HB CORE [id number] SeeNote (Normal) Comments: Result: Negative HB SURF [...] total amount of antibody present. HEP A AB,T.6726 SeeNote (Normal) Comments: Result: Negative HEP A IgM 6734 SeeNote (Normal) Comments: Result: Negative HEP B CORE,TOT SeeNote (Normal) Comments: Result: Negative HVC Ab <0.1 (Normal) Range: 0.0-0.9 Comments: INFCE Result Units: s/co ratioNegativeNot infected with HCV, unless recent infection issuspected or other evidence exists to indicate HCVinfection.Performed At: [facility] [place], [place] [id number] RIBA RESULT <TEST NOT PERFORMED> (Normal) :10 LIVER ALB 3.5 g/dL (Normal) Range: 3.4-5.0 ALK P 137 U/L (Abnormal) Range: 50-136 ALT 29 U/L (Abnormal) Range: 30-65 AST 22 U/L (Normal) Range: 15-37 D BILI 0.06 mg/dL (Normal) Range: 0.00-0.30 T BILI 0.09 mg/dL (Normal) Range: 0.00-1.00 T PROT 8.0 g/dL (Normal) Range: 6.4-8.2 :10 MICROALB:CRE UR Comments: HOLD IN OE UNTIL SPECIMEN COLLECTED? (Y/N)* N MALB:CREAT 72.0 [...] Indication: Low back pain Planned Observations CALCIFIDIOL (91491) VIT D 25Indication: Vitamin D deficiency On: 82-Hxj-166822:01 Request Renal function Panel (30628)Indication: Chronic kidney disease, stage III (moderate) On: 37-Czh-120596:00 Request TSH (26648)Indication: Hypothyroidism On: 82-Glw-813869:59 Request URINALYSIS (46144)Indication: Chronic kidney disease, stage III (moderate) On: 18-Bxx-365956:36 Request MICROALBUMIN: CREATININE RATIO (95245) AND (76118)Indication: Chronic kidney disease, stage III (moderate) On: 77-Gsy-632309:35 Request METABOLIC PANEL, COMPREHENSIVE (62547)Indication: Chronic kidney disease, stage III (moderate) On: 5-Adb-820351:59 Request CALCIFIDIOL (24447) VIT D 25Indication: Vitamin D deficiency On: 0-Tjm-862416:59 Request CARMEN CULTURE-OTHER (79915)Indication: Vaginal discharge On: 94-Uqh-094882:46 Request Comments: vagina BACT CULTURE ANY-ANAEROBIC (44762)Indication: Vaginal discharge On: 69-Jnz-186924:13 Request Comments: of vaginal fluid PHOSPHORUS (24294)Indication: Chronic kidney disease, stage III (moderate) On: 21-Njv-742015:26 Request Comments: do before November office visit PHOSPHORUS (17123)Indication: Malnutrition On: 23-Aug-20179:21 Request Phosphorus (08374)Indication: Malnutrition On: 95-Jvd-110010:42 Request Magnesium (92313)Indication: Malnutrition On: 05-Xow-811852:42 Request C-Reactive Protein (95427)Indication: Osteomyelitis of pelvic region On: 03-Oeh-137054:04 Request METABOLIC PANEL, COMPREHENSIVE (85332)Indication: Benign essential HTN On: 00-Krw-040209:52 Request URIC ACID BLOOD (27276)Indication: Abnormal blood chemistry On: 56-Duc-290346:52 Request Iron (37535)Indication: Anemia On: 74-Lux-429177:44 Request Iron Binding Capacity (TIBC) (29545)Indication: Anemia, chronic disease On: :53 Request Comments: in 6 weeks Iron (31378)Indication: Anemia, chronic disease On: :53 Request Comments: in 6 weeks Metabolic Panel, Comprehensive (80347)Indication: Benign essential HTN On: :52 Request Comments: now and in 6 weeks T4, FREE (THYROXINE) (67005)Indication: Hypothyroidism On: :52 Request Comments: now and in 6 weeks TSH (82999)Indication: Hypothyroidism On: :52 Request Comments: now and in 6 weeks CBC, Platelets & Auto Diff (50412)Indication: Anemia, chronic disease On: :51 Request Comments: now and in 6 weeks Total Protein,24 Hour Urine (89733)Indication: Chronic kidney disease, stage III (moderate) On: :50 Request CREATININE CLEARANCE (02946)Indication: Chronic kidney disease, stage III (moderate) On: :49 Request FECAL OCCULT- Tubes sent home (54030)Indication: Anemia, chronic disease On: :48 Request IRON (64392)Indication: Anemia, chronic disease On: :48 Request Urine Protein Electrophoresis (UPEP) (54658)Indication: Chronic kidney disease, stage III (moderate) On: :42 Request T4, FREE (THYROXINE) (76012)Indication: Hypothyroidism On: :52 Request T3, FREE (TRIDOTHYRONINE) (70248)Indication: Hypothyroidism On: :52 Request TSH (THYROID STIMULATING HORMONE) (93730)Indication: Hypothyroidism On: :52 Request FERRITIN (19485)Indication: Anemia, chronic disease On: :51 Request IRON BINDING CAPACITY (TIBC) (86912)Indication: Anemia, chronic disease On: :51 Request IRON & TOTAL IRON BINDING CAPACITY (83010)Indication: Anemia, chronic disease On: :51 Request METABOLIC PANEL, COMPREHENSIVE (70648)Indication: Thrombocytosis On: :50 Request Iron (20313)Indication: Anemia On: :54 Request T3, FREE (TRIDOTHYRONINE) (95631)Indication: Hypothyroidism On: :24 Request TSH (85938)Indication: Hypothyroidism On: :24 Request T4, FREE (THYROXINE) (80864)Indication: Hypothyroidism On: :24 Request ESR-F (SED RATE ERYTHROCYTE - FEMALE) (23026)Indication: Osteomyelitis of pelvic region On: :59 Request Comments: 11/11/15 C-REACT PROT HIGH SENS(hsCRP) (23730)Indication: Osteomyelitis of pelvic region On: :59 Request Comments: 11/11/15 CBC, PLATELETS & AUT DIFF (73622)Indication: Osteomyelitis of pelvic region On: :58 Request Comments: 11/11/15 LIPID PANEL (71286)Indication: Osteoporosis On: :58 Request Comments: 11/11/15 METABOLIC PANEL, COMPREHENSIVE (78868)Indication: Osteomyelitis of pelvic region On: :58 Request Comments: 11/11/15 MICROALBUMIN: CREATININE RATIO (81827) AND (51309)Indication: Osteoporosis On: :58 Request Comments: 11/11/15 VITAMIN B12 AND FOLATES (93481)Indication: Osteoporosis On: : Request Comments: 11/11/15 CALCIFEDIOL (69641)Indication: Osteoporosis On: :58 Request Comments: 11/11/15 LIPASE (49595)Indication: Pancreatitis On: :04 Request Comments: 6 week METABOLIC PANEL, COMPREHENSIVE (33890)Indication: Liver function abnormality On: : Request Comments: 6 weeks T3, FREE (TRIDOTHYRONINE) (22410)Indication: Hypothyroidism On: Request Comments: 6 weeks T4, FREE (THYROXINE) (30606)Indication: Hypothyroidism On: : Request Comments: 6 weeks TSH (THYROID STIMULATING HORMONE) (26051)Indication: Hypothyroidism On: : Request Comments: 6 weeks CBC, PLATELETS & AUT DIFF (34555)Indication: Thrombocytosis On: Request Comments: 6 weeks PT (Prothrobim Time) (14389)Indication: History of DVT (deep vein thrombosis) On: 28-Jun-2015 Request PT (Prothrobim Time) (06793)Indication: History of DVT (deep vein thrombosis) On: 29-May-2015 Request PT (Prothrobim Time) (87701)Indication: History of DVT (deep vein thrombosis) On: 29-Apr-2015 Request PT (Prothrobim Time) (12801)Indication: History of DVT (deep vein thrombosis) On: 30-Mar-2015 Request Metabolic Panel, Basic (18872)Indication: Abnormal blood chemistry On: 66-Fix-079683:47 Request PT (Prothrobim Time) (19836)Indication: History of DVT (deep vein thrombosis) On: 28-Feb-2015 Request PT (Prothrobim Time) (12099)Indication: History of DVT (deep vein thrombosis) On: 29-Jan-2015 Request PT (Prothrobim Time) (55842)Indication: History of DVT (deep vein thrombosis) On: 30-Dec-2014 Request PT (Prothrobim Time) (89415)Indication: History of DVT (deep vein thrombosis) On: 30-Nov-2014 Request Urinalysis, Office (74277)Indication: Abnormal urine On: 58-Yaf-594874:18 Request PT (Prothrobim Time) (33629)Indication: History of DVT (deep vein thrombosis) On: 01-Oct-2014 Request PT (Prothrobim Time) (11928)Indication: History of DVT (deep vein thrombosis) On: 78-Vhd-358383:46 Request URINALYSIS, W/ MICRO (70166)Indication: Chronic kidney disease, stage III (moderate) On: 96-Opl-120870:50 Request METABOLIC PANEL, COMPREHENSIVE (63688)Indication: Chronic kidney disease, stage III (moderate) On: 34-Bcn-337967:50 Request Metabolic Panel, Basic (42654)Indication: Chronic kidney disease, stage III (moderate) On: 82-Lyn-978904:12 Request URINALYSIS (85411)Indication: Chronic kidney disease, stage III (moderate) On: 24-Qaw-638591:51 Request Comments: recheck before June follow up MICROALBUMIN: CREATININE RATIO (18341) AND (08922)Indication: Chronic kidney disease, stage III (moderate) On: 80-Vch-098801:51 Request Comments: recheck before June follow up Metabolic Panel, Basic (59428)Indication: Chronic kidney disease, stage III (moderate) On: 95-Ocm-769400:50 Request Comments: recheck before June follow up Vitamin B-12 (cyanocobalamin) (87241)Indication: Other vitamin B12 deficiency anemia On: 62-Lha-172890:41 Request TSH (57516)Indication: Benign essential HTN On: 56-Yyg-878314:41 Request METABOLIC PANEL, COMPREHENSIVE (20916)Indication: Chronic kidney disease, stage III (moderate) On: 20-Trr-010243:41 Request CBC W/AUTO DIFF WBC (56581)Indication: Chronic kidney disease, stage III (moderate) On: 36-Zpl-829594:41 Request CALCIFIDIOL (26335) VIT D 25Indication: Osteoporosis On: 33-Sqr-426179:41 Request Vitamin B-12 (cyanocobalamin) (12886)Indication: Other vitamin B12 deficiency anemia On: 78-Mqd-641630:11 Request TSH (83948)Indication: Hypothyroidism On: 08-Lfz-128571:10 Request METABOLIC PANEL, COMPREHENSIVE (40171)Indication: Benign essential HTN On: 04-Sfi-178010:10 Request LIPID PANEL (56973)Indication: Benign essential HTN On: 25-Kbc-240936:10 Request PREALBUMIN (94298)Indication: Abnormal loss of weight On: 16-Zrt-830649:39 Request Vitamin B-12 (cyanocobalamin) (67551)Indication: Other vitamin B12 deficiency anemia On: 56-Stw-350529:36 Request TSH (31852)Indication: Hypothyroidism On: 71-Dus-173878:35 Request Vitamin B-12 (cyanocobalamin) (21032)Indication: Other vitamin B12 deficiency anemia On: 14-Tec-93310:43 Request TSH (56333)Indication: Hypothyroidism On: 89-Jdu-63590:42 Request T3, FREE (TRIDOTHYRONINE) (05923)Indication: Hypothyroidism On: :42 Request T4, FREE (THYROXINE) (76636)Indication: Hypothyroidism On: 01-Bnd-61637:42 Request CBC, Platelets & Auto Diff (65067)Indication: Osteomyelitis of pelvic region On: 89-Diz-135736:03 Request Comments: copy to Dr. Shira Contreras at [facility] LIPID PANEL (83527)Indication: Benign essential HTN On: 09-Xqs-433120:50 Request TSH (34804)Indication: Hypothyroidism On: 22-Bpf-219691:50 Request Metabolic Panel, Comprehensive (38411)Indication: Chronic kidney disease, stage III (moderate) On: 41-Nzy-396116:50 Request Vitamin B-12 (cyanocobalamin) (37856)Indication: Other vitamin B12 deficiency anemia On: 58-Sey-691082:49 Request PT (Prothrobim Time) (67272)Indication: History of DVT (deep vein thrombosis) On: 42-Ske-522080:47 Request Comments: standing order PT (Prothrobim Time) ([id number])Indication: History of DVT (deep vein thrombosis) On: 31-Cyz-08954:53 Request Comments: standing order CBC (Auto) ([id number])Indication: Regional enteritis of large bowel On: 44-Rne-45227:22 Request Comments: every week x4 then every 2 weeks x4 then monthly TSH (50145)Indication: Hypothyroidism On: :20 Request Metabolic Panel, Comprehensive (11300)Indication: Regional enteritis of large bowel On: 41-Dei-87147:16 Request MTHFR (48614)Indication: History of DVT (deep vein thrombosis) On: 26-Tbt-88828:15 Request Protein S Profile (29098)Indication: History of DVT (deep vein thrombosis) On: :15 Request Protein C Profile (28451)Indication: History of DVT (deep vein thrombosis) On: :15 Request Homocysteine, Plasma (91413)Indication: History of DVT (deep vein thrombosis) On: 85-Uql-29370:15 Request Antiphospholipid atb (68537)Indication: History of DVT (deep vein thrombosis) On: :15 Request ANTICOAG ANTTHROMB III & ASSAY (63128)Indication: History of DVT (deep vein thrombosis) On: 81-Gmh-28310:15 Request ANTITHROMBIN III ACTIVTY (42183)Indication: History of DVT (deep vein thrombosis) On: 61-Zkb-41569:15 Request CLOTTING FACTOR II (70967)Indication: History of DVT (deep vein thrombosis) On: 70-Qxa-64418:15 Request Factor V Leiden (36481)Indication: History of DVT (deep vein thrombosis) On: 25-Fjv-85477:15 Request LIPID PANEL (63771)Indication: Essential hypertension, malignant On: :13 Request Methymalonic Acid, Serum (60903)Indication: Other vitamin B12 deficiency anemia On: :05 Request CBC (Auto) (28919)Indication: Essential hypertension, malignant On: :57 Request Metabolic Panel, Comprehensive (10063)Indication: Essential hypertension, malignant On: :57 Request TSH (61274)Indication: Hypothyroidism On: :57 Request CALCIFEDIOL (35285)Indication: Abnormal blood chemistry On: :34 Request VITAMIN B12 AND FOLATES (27936)Indication: Abnormal blood chemistry On: :34 Request Methylmalonic Acid, Ur (85383)Indication: Abnormal blood chemistry On: :34 Request Homocysteine, Plasma (05729)Indication: Abnormal blood chemistry On: :34 Request PT (Prothrobim Time) (77836)Indication: Deep vein thrombosis On: :50 Request Comments: STANDING ORDER Sed Rate Erythrocyte (62043)Indication: Regional enteritis of large bowel On: :22 Request CBC, Platelets & Auto Diff (44756)Indication: Other vitamin B12 deficiency anemia On: 99-Urz-019570:22 Request PARATHORMONE (92888)Indication: Regional enteritis of large bowel On: :18 Request Phosphorus (31165)Indication: Regional enteritis of large bowel On: :18 Request Magnesium (26431)Indication: Regional enteritis of large bowel On: :18 Request CALCIFEDIOL (22800)Indication: Regional enteritis of large bowel On: 57-Lum-280177:18 Request FERRITIN (89639)Indication: Regional enteritis of large bowel On: :18 Request IRON (94069)Indication: Regional enteritis of large bowel On: :18 Request ZINC, BLOOD (05658)Indication: Regional enteritis of large bowel On: :18 Request Vitamin B-12 (cyanocobalamin) (29416)Indication: Other vitamin B12 deficiency anemia On: :18 Request VITAMIN A (61595)Indication: Regional enteritis of large bowel On: :18 Request METHLYMALONIC ACID, SERUM (60570)Indication: Other vitamin B12 deficiency anemia On: :17 Request Folic Acid Serum (78011)Indication: Regional enteritis of large bowel On: :17 Request CHROMIUM (97703)Indication: Regional enteritis of large bowel On: :17 Request ASSAY, HOMOCYSTINE (38238)Indication: Other vitamin B12 deficiency anemia On: :17 Request VITAMIN B-12 (CYANOCOBALAMIN) (99051)Indication: Other vitamin B12 deficiency anemia On: :16 Request Sed Rate Erythrocyte (05436)Indication: Chronic kidney disease, stage III (moderate) On: :23 Request CBC with manual diff (03547)Indication: Chronic kidney disease, stage III (moderate) On: :23 Request Metabolic Panel, Comprehensive (61514)Indication: Chronic kidney disease, stage III (moderate) On: :23 Request TSH (24777)Indication: Hypothyroidism On: :23 Request Vitamin B-12 (cyanocobalamin) (20563)Indication: Other vitamin B12 deficiency anemia On: :41 Request VITAMIN B-12 (CYANOCOBALAMIN) (59512)Indication: Other vitamin B12 deficiency anemia On: :01 Request 24 hour urine for Protein (87761)Indication: Proteinuria On: :17 Request CREATININE CLEARANCE (59542)Indication: Proteinuria On: :17 Request Metabolic Panel, Basic (15080)Indication: Renal insufficiency (Renamed from Renal function impairment) On: :06 Request Urine Protein Electrophoresis (UPEP) (50614)Indication: Proteinuria On: :06 Request Serum Protein Electrophoresis (SPEP) (92649)Indication: Proteinuria On: 82-Ysl-794413:06 Request METABOLIC PANEL, COMPREHENSIVE (06960)Indication: Essential hypertension, malignant On: :14 Request CBC WITH MANUAL DIFF (96230)Indication: Essential hypertension, malignant On: 79-Odj-954338:14 Request Comments: in six months (approximately) TSH (19580)Indication: Hypothyroidism On: 4-Ipc-786843:15 Request MICROALBUMIN: CREATININE RATIO (35180) AND (08982)Indication: Proteinuria On: 3-Zea-570304:13 Request 24 hour urine for Protein (36276)Indication: Proteinuria On: 9-Kvu-773646:13 Request Lipid Panel (48688)Indication: Essential hypertension, malignant On: 2-Qfg-553743:13 Request Metabolic Panel, Comprehensive (54087)Indication: Essential hypertension, malignant On: 9-Rxt-752439:13 Request Comments: in three months (approximately) MICROALBUMIN: CREATININE RATIO (89725) AND (55866)Indication: Proteinuria On: 2-Mxg-673837:24 Request HEPATITIS PANEL (48947)Indication: Abnormal blood chemistry On: 5-Ohe-891488:22 Request HEPATIC FUNCTION PANEL (32286)Indication: Abnormal blood chemistry On: 0-Eyg-248001:22 Request TSH (89942)Indication: Hypothyroidism On: 3-Mpp-399090:12 Request CBC WITH MANUAL DIFF (96301)Indication: Essential hypertension, malignant On: 87-Nvy-795824:47 Request METABOLIC PANEL, COMPREHENSIVE (69373)Indication: Essential hypertension, malignant On: 18-Fxx-136614:47 Request LIPID PANEL (71148)Indication: Essential hypertension, malignant On: 32-Rgw-304735:47 Request TSH (11358)Indication: Hypothyroidism On: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
--- OUTSIDE RECORDS SUMMARY | 2018-03-25 11:25 | XMS RPT_ITS | Continuity of Care Document ---
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 [facility] Zquhmw4716 Anand [facility]in [place] [id number] BY: [address] [id number] (37346) Methylmalonic Acid, Serum 271 nmol/L (Normal) Range: 0-378 8-Shh-769397:24 Vitamin B-12 (cyanocobalamin) Comments: PATIENT NOT FASTINGPERFORMED BY: [employer] Rypifw2341 Anand [facility] [id number] BY: [address] [id number] (49665) Vitamin B12 414 pg/mL (Normal) Range: 232-1245 1-Kin-888926:24 Iron Binding Capacity Comments: PATIENT NOT FASTINGPERFORMED BY: [employer] Pgaefd7145 [facility] [id number] BY: [address] [id number] Inf ormation: NURSE DROP OFF (TIBC) (16062) Iron Saturation 5 % (Abnormal) Range: 15-55 Iron, Serum 16 ug/dL (Abnormal) Range: 27-139 UIBC 301 ug/dL (Normal) Range: 118-369 Iron Bind.Cap.(TIBC) 317 ug/dL (Normal) Range: 250-450 7-Zty-809067:24 Ferritin (94960) Comments: PATIENT NOT FASTINGPERFORMED BY: [facility] Irtomf3726 [facility] [place] [id number] BY: [address] [id number] Ferritin, Serum 72 ng/mL (Normal) Range: 15-150 4-Oza-803537:08 Ferritin (65218) Comments: PATIENT NOT FASTINGPERFORMED BY: [facility]6370 [facility] [id number] Ferritin, Serum 52 ng/mL (Normal) Range: 15-150 7-Six-641903:08 CBC (Auto) (23304) Comments: PATIENT NOT FASTINGPERFORMED BY: [address] [id number] Platelets 293 {x10E3/uL} (Normal) Range: 150-379 RDW 18.9 % (Abnormal) Range: 12.3-15.4 MCHC 32.1 g/dL (Normal) Range: 31.5-35.7 MCH 29.2 pg (Normal) Range: 26.6-33.0 MCV 91 fL (Normal) Range: 79-97 Hematocrit 41.7 % (Normal) Range: 34.0-46.6 Hemoglobin 13.4 g/dL (Normal) Range: 11.1-15.9 RBC 4.59 {x10E6/uL} (Normal) Range: 3.77-5.28 WBC 6.8 {x10E3/uL} (Normal) Range: 3.4-10.8 :08 TSH (71322) Comments: PATIENT NOT FASTINGPERFORMED BY: [facility]6370 [facility] [id number] TSH 0.117 {uIU/mL} (Abnormal) Range: 0.450-4.500 :08 T4, FREE (THYROXINE) (96573) Comments: PATIENT NOT FASTINGPERFORMED BY: [place] 1389470 [facility] [id number] T4,Free(Direct) 1.86 ng/dL (Abnormal) Range: 0.82-1.77 :31 T4, FREE (THYROXINE) Comments: recheck in 6 weeks; PATIENT NOT FASTINGPERFORMED BY: [place] 1389470 [facility] [id number] Information: DIFFICULT DRAW (31943) T4,Free(Direct) 1.57 ng/dL (Normal) Range: 0.82-1.77 :31 T3, FREE (TRIDOTHYRONINE) (51636) Comments: recheck in 6 weeks; PATIENT NOT FASTINGPERFORMED BY: [facility]6370 [facility] [id number] Triiodothyronine,Free,Serum 2.3 pg/mL (Normal) Range: 2.0-4.4 :31 TSH (04458) Comments: recheck in 6 weeks; PATIENT NOT FASTINGPERFORMED BY: [facility]Stra[facility] Surgery6370 [facility] [id number] TSH 0.920 {uIU/mL} (Normal) Range: 0.450-4.500 :58 Protein Electro, Random Urine Comments: PATIENT NOT FASTINGPERFORMED BY: [facility]6370 [facility] [id number] Please note: SPRCS (Normal) Comments: Protein electrophoresis scan will follow via computer, mail, orcourier delivery. M-Navarro, % Not Observed % (Normal) Gamma Globulin, U 42.4 % (Normal) Beta Globulin, U 19.9 % (Normal) Gfwvz-4-Ydtablll, U 8.9 % (Normal) Delht-9-Qbvvsorb, U 6.0 % (Normal) Albumin, U 22.7 % (Normal) Protein,Total,Urine 58.1 mg/dL (Normal) :58 TSH (13143) Comments: PATIENT NOT FASTINGPERFORMED BY: [facility]6370 [facility] [id number] TSH 0.056 {uIU/mL} (Abnormal) Range: 0.450-4.500 :58 T3, FREE (TRIDOTHYRONINE) (96303) Comments: PATIENT NOT FASTINGPERFORMED BY: [facility]6370 [facility] [id number] Triiodothyronine,Free,Serum 2.4 pg/mL (Normal) Range: 2.0-4.4 :58 T4, FREE (THYROXINE) (45701) Comments: PATIENT NOT FASTINGPERFORMED BY: [facility]Stra[facility]6370 [facility] [id number] T4,Free(Direct) 2.53 ng/dL (Abnormal) Range: 0.82-1.77 :58 IRON BINDING CAPACITY (TIBC) Comments: PATIENT NOT FASTINGPERFORMED BY: [facility]Stra[facility]6370 [facility] [id number] (61236) Iron Saturation 4 % (Abnormal) Range: 15-55 Iron, Serum 18 ug/dL (Abnormal) Range: 27-139 UIBC 388 ug/dL (Abnormal) Range: 118-369 Iron Bind.Cap.(TIBC) 406 ug/dL (Normal) Range: 250-450 :58 FERRITIN (55105) Comments: PATIENT NOT FASTINGPERFORMED BY: [facility]6370 [facility] [id number] Ferritin, Serum 24 ng/mL (Normal) Range: 15-150 :58 Sed Rate Erythrocyte (31993) Comments: PATIENT NOT FASTINGPERFORMED BY: [facility]6370 [facility] [id number] Sedimentation Rate-Westergren 73 mm/h (Abnormal) Range: 0-40 :58 Serum Protein Electrophoresis Comments: PATIENT NOT FASTINGPERFORMED BY: [facility]6370 [facility] [id number] (SPEP) (26213) Please note: SPRCS (Normal) Comments: Protein electrophoresis scan will follow via computer, mail, orcourier delivery. A/G Ratio 0.7 (Normal) Range: 0.7-1.7 Globulin, Total 4.2 g/dL (Abnormal) Range: 2.2-3.9 M-Navarro Not Observed g/dL (Normal) Gamma Globulin 1.2 g/dL (Normal) Range: 0.4-1.8 Beta Globulin 1.4 g/dL (Abnormal) Range: 0.7-1.3 Agqwy-2-Ripltfxo 1.1 g/dL (Abnormal) Range: 0.4-1.0 Qujzu-8-Wvuvboui 0.4 g/dL (Normal) Range: 0.0-0.4 Albumin 3.1 g/dL (Normal) Range: 2.9-4.4 :58 MAGNESIUM (59727) Comments: PATIENT NOT FASTINGPERFORMED BY: CRISTA [facility] Davvtf0391 Anand RoadDublin [place] [id number] Magnesium, Serum 1.8 mg/dL (Normal) Range: 1.6-2.3 :58 PHOSPHORUS (88403) Comments: PATIENT NOT FASTINGPERFORMED BY: CB [facility] Jcqrxq7625 Anand RoadDublin [place] [id number] Phosphorus, Serum 4.7 mg/dL (Abnormal) Range: 2.5-4.5 :58 CALCIFEDIOL (64409) Comments: PATIENT NOT FASTINGPERFORMED BY: [facility] Sovwjy5097 Anand RoadDublin [place] [id number] Vitamin D, 25-Hydroxy 34.5 ng/mL (Normal) Range: 30.0-100.0 Comments: Vitamin D deficiency has been defined by the [place] of[place]icine and an Endocrine Society practice guideline as alevel of serum 25-OH vitamin D less than 20 ng/mL (1,2).The Endocrine Society went on to further define vitamin Dinsufficiency as a level between 21 and 29 ng/mL (2).1. IOM ([place] of Medicine). 2010. Dietary reference intakes for calcium and D. [place]: The National Academies Press.2. Justin MF, Jazmyn NC, Aniya CANO, et al. Evaluation, treatment, and prevention of vitamin D deficiency: an Endocrine Society clinical practice guideline. JCEM. 2010; 96(7):1911-30. :58 PARATHORMONE (37145) Comments: PATIENT NOT FASTINGPERFORMED BY: [facility] Iwytes0367 Anand RoadDublin [place] [id number] PTH, Intact 41 pg/mL (Normal) Range: 15-65 26-Ebk-450948:58 METABOLIC PANEL, Comments: PATIENT NOT FASTINGPERFORMED BY: [facility] Luboqr6467 Anand RoadDublin [place] [id number] Information: DIFFICULT DRAW COMPREHENSIVE (20916) ALT (SGPT) 21 [iU]/L (Normal) Range: 0-32 [...] Glucose, Serum 63 mg/dL (Abnormal) Range: 65-99 8-Grq-894908:04 Vitamin B-12 (cyanocobalamin) Comments: PATIENT WAS FASTINGPERFORMED BY: TasteBook[address] [id number] BY: TasteBookSt. Francis Medical CenterVryfuf4619 [facility] [id number] (40894) Vitamin B12 >2000 pg/mL (Abnormal) Range: 211-946 7-Djn-890578:04 CBC WITH MANUAL DIFF Comments: PATIENT WAS FASTINGPERFORMED BY: [employer] [id number] BY: TasteBookSt. Francis Medical CenterMoufeu5901 [facility] [id number] (40223) Immature Grans (Abs) 0.0 {x10E3/uL} (Normal) Range: [...] 3.77-5.28 WBC 7.6 {x10E3/uL} (Normal) Range: 3.4-10.8 0-Odm-674956:04 LIPOPROTEIN, BLD, BY NMR Comments: PATIENT WAS FASTINGPERFORMED BY: BN [facility] [address] [id number] BY: CB [facility] Wvtfau5452 [facility] [id number] (27619) LP-IR Score 33 (Normal) Comments: INSULIN RESISTANCE MARKER <--Insulin Sensitive Insulin Resistant--> Percentile in Reference PopulationInsulin Resistance ScoreLP-IR Score Low 25th 50th 75th High <27 27 45 63 >63LP-IR Score is inaccurate if patient is non-fasting. .The LP-IR score is a laboratory developed i [facility] that has beenassociated with insulin resistance and [...] were developed and their performance characteristicsdetermined by [employer]. These assays have not been cleared by [...] 1600 - 2000 Very High > 2000 91-Fgc-281275:36 UPEP (70728) Comments: PATIENT WAS FASTINGPERFORMED BY: [facility]ISUNC [facility] [id number] Please note: SPRCS (Normal) Comments: Protein electrophoresis scan will follow via computer, mail, orcourier delivery. M-Navarro, % Not Observed % (Normal) Gamma Globulin, U 26.0 % (Normal) Beta Globulin, U 31.1 % (Normal) Vawoi-7-Yazsbdbo, U 9.8 % (Normal) Ghmav-6-Etrdnoka, U 2.5 % (Normal) Albumin, U 30.7 % (Normal) Protein,Total,Urine 35.3 mg/dL (Normal) 60-Arm-673946:36 SPEP (72541) Comments: PATIENT WAS FASTINGPERFORMED BY: [employer] First AnandSkySQLUNC Health [id number] Please note: SPRCS (Normal) Comments: Protein electrophoresis scan will follow via computer, mail, orcourier delivery. A/G Ratio 0.7 (Normal) Range: 0.7-1.7 Globulin, Total 4.2 g/dL (Abnormal) Range: 2.2-3.9 M-Navarro Not Observed g/dL (Normal) Gamma Globulin 1.0 g/dL (Normal) Range: 0.4-1.8 Beta Globulin 1.5 g/dL (Abnormal) Range: 0.7-1.3 Guzgc-1-Seqdjmss 1.3 g/dL (Abnormal) Range: 0.4-1.0 Yvthc-3-Glmtbnxz 0.4 g/dL (Normal) Range: 0.0-0.4 Albumin 3.0 g/dL (Normal) Range: 2.9-4.4 65-Ysf-215430:36 Lipid Panel (03688) Comments: PATIENT WAS FASTINGPERFORMED BY: [employer]70 Anand [facility] [id number] LDL/HDL Ratio 0.9 {ratio_units} (Normal) Range: 0.0-3.2 [...] Cholesterol, Total 153 mg/dL (Normal) Range: 100-199 73-Bbt-165224:36 Metabolic Panel, Comprehensive Comments: PATIENT WAS FASTINGPERFORMED BY: [facility] Wpaxtc0306 [facility] [id number] (43611) ALT (SGPT) 18 [iU]/L (Normal) Range: 0-32 [...] MANUAL DIFF Comments: PATIENT WAS FASTINGPERFORMED BY: TasteBookSt. Francis Medical CenterBopbgc4704 [facility] [id number] Information: DIFFICULT DRAW (46950) Immature Grans (Abs) 0.0 {x10E3/uL} (Normal) Range: [...] (LACTATE DEHYDROGENASE) Comments: PATIENT WAS FASTINGPERFORMED BY: [facility] HospitalSunlight FoundationTimothy V[place] 2290370 [facility] [id number] (46873) LDH 161 [iU]/L (Normal) Range: 119-226 54-Pob-434401:36 Vitamin B-12 (cyanocobalamin) Comments: PATIENT WAS FASTINGPERFORMED BY: [place] 1389470 [facility] [id number] (24042) Vitamin B12 717 pg/mL (Normal) Range: 211-946 79-Bmz-285256:36 Iron Binding Capacity (TIBC) Comments: PATIENT WAS FASTINGPERFORMED BY: [address] [id number] (51204) Iron Saturation 7 % (Abnormal) Range: 15-55 Iron, Serum 29 ug/dL (Normal) Range: 27-139 UIBC 386 ug/dL (Abnormal) Range: 118-369 Iron Bind.Cap.(TIBC) 415 ug/dL (Normal) Range: 250-450 64-Mfv-697564:36 Ferritin (50537) Comments: PATIENT WAS FASTINGPERFORMED BY: [place] 1389470 [facility] [id number] Ferritin, Serum 43 ng/mL (Normal) Range: 15-150 59-Wsr-452974:36 Folic Acid Serum (24727) Comments: PATIENT WAS FASTINGPERFORMED BY: [place] 1389470 [facility] [id number] Folate (Folic Acid), Serum 11.3 ng/mL (Normal) Comments: A serum folate concentration of less than 3.1 ng/mL isconsidered to represent clinical deficiency. 03-Trl-679206:36 TSH (19454) Comments: PATIENT WAS FASTINGPERFORMED BY: [place] 1389470 [facility] [id number] TSH 0.530 {uIU/mL} (Normal) Range: 0.450-4.500 88-Wgm-495757:36 T4, FREE (THYROXINE) (52593) Comments: PATIENT WAS FASTINGPERFORMED BY: [address] [id number] T4,Free(Direct) 1.90 ng/dL (Abnormal) Range: 0.82-1.77 84-Wbf-220161:36 T3, FREE (TRIDOTHYRONINE) (01903) Comments: PATIENT WAS FASTINGPERFORMED BY: [facility] Aptchn4544 Anand [facility] [id number] Triiodothyronine,Free,Serum 1.9 pg/mL (Abnormal) Range: 2.0-4.4 :23 CBC W/Diff, Automated Comments: [facility] Lqfqvyfrdv9522 [place], [address] Absolute Lymph 2.62 {X10_3/ul} (Normal) Range: 0.83-4.51 [...] Range: 4.4-11.0 :23 Comprehensive Metabolic Profil Comments: [facility] Modakqsagy7310 [address] Adamese. [place], [id number] GAP 7 (Normal) Range: 5-15 CO2 27.0 [...] (Normal) Range: 70-110 :23 Free T3 Comments: [facility] Lpuxkypxlm7207 [address] Adamese. Ma[place], [id number] FREE T3 1.3 pg/mL (Abnormal) Range: 2.18-3.98 :23 Lipase Comments: [facility] Ecrfbwects0020 [place], [address] LIPASE 130 U/L (Normal) Range: 73-393 8-Sep-76616:23 T4 Free Direct Comments: [facility] Twaazgmpoh4697 VIVIAN Almeida, [id number] T4 FREE DIRECT 1.45 ng/dL (Normal) Range: 0.76-1.46 :23 Thyroid Stim Hormone (TSH) Comments: [facility] Rtvvnoggvy2813 VIVIAN Alme[place], [id number] TSH 17.10 {uIU/mL} (Abnormal) Range: 0.358-3.74 :22 CRP Comments: Order Date: 11/22/15Order Date: 11/22/15[facility] Boaxriayuj7103VIVIAN Bailey, [id number] C-REACTIVE PROT 11.80 mg/L (Abnormal) Range: 0.0-3.0 Comments: C-Reactive Protein (CRP) provides useful information for thediagnosis, therapy and monitoring of inflammatory processesand associated diseases. For the evaluation of Relative Riskfor Cardiovascular Dise ase, a High Sensitivity CRP (HSCRP)should be ordered. :22 Erythrocyte Sed Rate Comments: Order Date: 11/22/15Interface Comments: Reason:Order Date: 11/22/15[facility] Vbkssgmuno5530VIVIAN Mccurdy, [id number] SED RATE 83 mm/h (Abnormal) Range: 0-30 6-Mii-604405:29 Culture, Wound Comments: [facility] Zqjexrrwex0360 VIVIAN Alme[place], 606761 CUW See Note (Normal) Comments: Order Date: 11/22/15 Gram StainGram Stain 1+ Red Cell Stroma Rare Gram positive cocci Wound CulturePossible skin contamination, further Identification and sensitivity will be performed only by physi jamshid's request. ORGANISM 1: Coag Negative StaphAmount Growth Rare :11 CBC W/Diff, Automated Comments: [facility] Lzieauimzu3804 VIVIAN Almeida, [id number] Absolute Lymph 2.98 {X10_3/ul} (Normal) Range: 0.83-4.51 [...] 4.2-5.4 WBC 6.9 K/mm3 (Normal) Range: 4.4-11.0 05-Vgt-58495:11 Comprehensive Metabolic Profil Comments: Is Patient Taking Vitamins or Folic Acid Supplements? [facility] Jmpizolphn0756 [address] [place], [place], [id number] GAP 7 (Normal) Range: 5-15 CO2 28.0 [...] Patient Taking Vitamins or Folic Acid Supplements? [facility] Ackothjzvh[address] [place], [address] CRP HIGH SENS 1.79 mg/L (Normal) Comments: Low Relative Risk of CVD <1.0 mg/L Average Relative Risk of CVD 1.0 - 3.0 mg/L High Relative Risk of CVD >3.0 mg/L 39-Qai-21500:11 Erythrocyte Sed Rate Comments: [facility] Snmvue[address] [place], [address] SED RATE 37 mm/h (Abnormal) Range: 0-30 :11 Folates, (Folic Acid) Comments: Is Patient Taking Vitamins or Folic Acid Supplements? [facility] F[address]lh[address]dwm[address] [place], [address] FOLATES 30.20 ng/mL (Abnormal) Range: 3.1-17.5 :11 Lipid Profile Comments: Is Patient Taking Vitamins or Folic Acid Supplements? [facility] Iuklenqbxo9500 Wilfredo Milian [place], [id number] VLDL 16 mg/dL (Normal) Range: 5-40 LDL [...] 200-240 mg/dL Borderline >240 mg/dL High Risk 55-Hdf-90970:11 Vitamin B12 694 pg/mL (Normal) Comments: [facility] Knoyxiglog0277 Wilfredo Milian [place], [id number] Range: 211-911 :11 Vitamin D,25 Hydroxy Comments: [facility] Smvxqaxqah4391 [address]. [place], [id number] Vitamin D 25-OH > 150.0 ng/mL (Normal) [...] falsely elevatedvalues when tested with the [employer] ShowMe.tvaur Vitamin D assay.With fluorescein interference, observed Vitamin D values canbe as high as >150 ng/mL (>375 nmol/L). Samples should beresubmitted post fluorescein clearance to ensure there is nointerference with Vitamin D test results. :01 Protein+Creatinine Ratio,Urine Comments: [facility] Yxzqshmcot0877 [address]. [place], [id number] PROT:CRE RATIO 276 {mg/g_CRE} (Abnormal) Range: 0-200 PROTEIN,UR.RAN. 60.7 mg/dL (Abnormal) UR CREAT 220.00 mg/dL (Normal) :01 Renal Profile Comments: [facility] Anjyogzcfq5607 Wilfredoholly Adamese. [place], [id number] CO2 30.0 mmol/L (Normal) Range: 21.0-32.0 CL [...] 7-18 GLU 97 mg/dL (Normal) Range: 70-110 1-Hca-151503:20 Urinalysis, Complete Comments: Order Date: 09/23/15Has pt arrived? YHow was Urine Obtained? FARMWORKER VEGETABLE TO SPECIFYWMadison Health Rijjtatfty9728 [address]. [place], 405771 YEAST-URINE 1+ {/hpf} (Normal) MUCUS, URINE 0 [...] CLARITY Sl. Cloudy (Normal) COLOR Yellow (Normal) 5-Dgr-653192:30 CBC W/Diff, Automated Comments: [facility] Hihmzgobgx6346 [address] [place], [place], [id number] Absolute Lymph 2.14 {X10_3/ul} (Normal) Range: 0.83-4.51 [...] 4.2-5.4 WBC 9.9 K/mm3 (Normal) Range: 4.4-11.0 0-Ipj-570982:30 Comprehensive Metabolic Profil Comments: [facility] Uttfqwktqi4546 [place], [address] GAP 9 (Normal) Range: 5-15 CO2 20.0 [...] 7-18 GLU 107 mg/dL (Normal) Range: 70-110 7-Pnp-725388:30 Lipase Comments: [facility] Goncxbpisq1014 [place], [address] LIPASE 542 U/L (Abnormal) Range: 73-393 :45 Vitamin B-12 (cyanocobalamin) Comments: PATIENT WAS FASTINGPERFORMED BY: LabCoSt. Francis Medical CenterGmobkn7706 [facility] [id number] (01011) Vitamin B12 998 pg/mL (Abnormal) Range: 211-946 :45 METABOLIC PANEL, COMPREHENSIVE Comments: PATIENT WAS FASTINGPERFORMED BY: LabCoSt. Francis Medical CenterUkirdp4604 [facility] [id number] (34462) ALT (SGPT) 48 [iU]/L (Abnormal) Range: 0-32 [...] auto diff Comments: PATIENT WAS FASTINGPERFORMED BY: TasteBookSt. Francis Medical CenterTyarks3399 [facility] [id number] Information: [id number] (68759) Immature Grans (Abs) 0.0 {x10E3/uL} (Normal) Range: [...] 8.3 {x10E3/uL} (Normal) Range: 3.4-10.8 :45 TSH (73909) Comments: PATIENT WAS FASTINGPERFORMED BY: [facility]6370 [facility] [id number] TSH 25.460 {uIU/mL} (Abnormal) Range: 0.450-4.500 27-Nez-761793:16 Renal Profile Comments: [facility] Fgvgpjtnyu7562 [address] [place], [place], [id number] CO2 23.0 mmol/L (Normal) Range: 21.0-32.0 CL [...] 7-18 GLU 108 mg/dL (Normal) Range: 70-110 50-Ouz-948260:07 Culture, Urine Comments: [facility] Zoogwlghbb3853 [address] [place], [place], 8960[address] CUUR See Note (Normal) Comments: Urine CultureORGANISM 1: Streptococcus mitis/ oralisColony Count 50,000-80,000 Streptococcus mitis/ oralis: REACTION Ampicillin $ <=0.25 S Benzylpenicillin NF 8 R Ceftriaxone (other dx) $ <=0.12 S Levofloxacin $ 8 R Tetracycline NF >=16 R Vancomycin $ 0.25 S(NF) indicates non-formulary drug at [facility]. Approval by Infectious Disease Specialist required b efore non-formulary drugs may be ordered and/or dispensed. * CLSI guidelines does not recommend testing of cephalosporins. This interpretation is deduced from Beta-lactam/penicillin results. :58 CALCIFIDIOL (87968) VIT D 25 Comments: PATIENT NOT FASTINGPERFORMED BY: Watchful SoftwareStraith Hospital For Special Surgery6370 [facility] [id number] Vitamin D, 25-Hydroxy 43.7 ng/mL (Normal) Range: 30.0-100.0 Comments: Vitamin D deficiency has been defined by the [place] ofMedicine and an Endocrine Society practice guideline as alevel of serum 25-OH vitamin D less than 20 ng/mL (1,2).The Endocrine Society went on to further define vitamin Dinsufficiency as a level between 21 and 29 ng/mL (2).1. IOM ([place] of Medicine). 2010. Dietary reference intakes for calcium and D. [place]: The National Academies Press.2. Justin MF, Jazmyn FOSTER, Aniya CANO, et al. Evaluation, treatment, and prevention of vitamin D deficiency: an Endocrine Society clinical practice guideline. JCEM. 2010; 96(7):1911-30. :58 METABOLIC PANEL, Comments: PATIENT NOT FASTINGPERFORMED BY: [facility] Kcylbu2566 [facility] [id number] Information: [id number] DIFFICULT D RAW; apt. 4-25 COMPREHENSIVE (77748) ALT (SGPT) 11 [iU]/L (Normal) Range: 0-32 [...] Glucose, Serum 95 mg/dL (Normal) Range: 65-99 27-Lox-774129:59 Metabolic Panel, Basic Comments: PATIENT NOT FASTINGPERFORMED BY: LabCoSt. Francis Medical CenterCfrxcm8965 [facility] [id number] Information: [id number] (58350) Calcium, Serum 7.8 mg/dL (Abnormal) Range: 8.7-10.3 [...] (Abnormal) Range: 65-99 Comments: Client Requested Flag 72-Hck-336293:23 Urinalysis, Office (09530) UA - LEUKOCYTE ESTERASE Trace (Normal) UA - NITRITE Negative (Normal) URINE UROBILINGN EVY TIMED Normal mg/dL (Normal) UA - PROTEIN 30 mg/dL (Normal) UA - PH 6.0 (Normal) UA - BLOOD Negative (Normal) UA - SPECIFIC GRAVITY 1.025 (Normal) UA - KETONES Negative mg/dL (Normal) UA - BILIRUBIN Negative (Normal) UA - GLUCOSE Negative (Normal) 9-Aoz-776372:01 Metabolic Panel, Comments: PATIENT NOT FASTINGPERFORMED BY: [facility]6370 [facility] [id number] Information: [id number] Comprehensive (37222) ALT (SGPT) 52 [iU]/L (Abnormal) Range: 0-32 [...] cells when received.This may adversely affect serumChemistries. 70-Vis-945940:30 Metabolic Panel, Comments: PATIENT NOT FASTINGPERFORMED BY: [facility]6370 [facility] [id number] Information: [id number] Comprehensive (06377) ALT (SGPT) 9 [iU]/L (Normal) Range: 0-32 [...] Glucose, Serum 98 mg/dL (Normal) Range: 65-99 :08 PT (Prothrobim Time) Comments: PATIENT NOT FASTINGPERFORMED BY: LabCoSt. Francis Medical CenterDkjxif6736 [facility] [id number] Information: [id number] (35807) Prothrombin Time 12.6 {sec} (Abnormal) Range: 9.1-12.0 INR 1.2 (Normal) Range: 0.8-1.2 Comments: Reference interval is for non-anticoagulated patients. . Suggested INR therapeutic range for Vitamin K anta gonist therapy: Standard Dose (moderate intensity therapeutic range): 2.0 - 3.0 Higher intensity therapeutic range 2.5 - 3.5 41-Mnd-501148:50 Urinalysis, Office (09511) UA - LEUKOCYTE ESTERASE Trace (Normal) UA - NITRITE Negative (Normal) URINE UROBILINGN EVY TIMED Normal mg/dL (Normal) UA - PROTEIN 100 mg/dL (Normal) UA - PH 6.0 (Normal) UA - BLOOD Non Hemolyzed Trace (Normal) UA - SPECIFIC GRAVITY 1.030 (Abnormal) UA - KETONES Negative mg/dL (Normal) UA - BILIRUBIN Negative (Normal) UA - GLUCOSE Negative (Normal) 11-Ajo-938722:26 URINE CARMEN CULTURE (EVY Comments: PATIENT NOT FASTINGPERFORMED BY: [employer]Formerly [facility] [id number] Information: SRC:[place] [id number] COL COUNT) (15217) Result 1 NG36 (Normal) Comments: No growth in 36 - 48 hours. Urine Culture,Comprehensive Final report (Normal) 0-Cpo-299795:08 Vitamin B-12 (cyanocobalamin) Comments: in six months (approximately); PATIENT WAS FASTINGPERFORMED BY: [employer]70 DocuratedFormerly [facility] [id number] (76616) Vitamin B12 433 pg/mL (Normal) Range: 211-946 4-Yny-976843:08 CBC W/AUTO DIFF WBC Comments: in six months (approximately); PATIENT WAS FASTINGPERFORMED BY: [employer]70 [employer] [facility] [id number] Information: [id number] (35332) Immature Grans (Abs) 0.0 {x10E3/uL} (Normal) Range: [...] 3.77-5.28 WBC 5.2 {x10E3/uL} (Normal) Range: 3.4-10.8 9-Fjv-755442:08 TSH (38099) Comments: in six months (approximately); PATIENT WAS FASTINGPERFORMED BY: 7SummitsSt. Francis Medical CenterSfxgmc2445 [facility] [id number] TSH 0.802 {uIU/mL} (Normal) Range: 0.450-4.500 29-Sbx-022042:38 METABOLIC PANEL, Comments: in six months (approximately); PATIENT NOT FASTINGPERFORMED BY: 7SummitsSt. Francis Medical CenterPvbxbr2079 [facility] [id number] Information: [id number] COMPREHENSIVE (61653) ALT (SGPT) 10 [iU]/L (Normal) Range: 0-32 [...] Glucose, Serum 91 mg/dL (Normal) Range: 65-99 1-Zpk-175338:08 LIPID PANEL (15447) Comments: in six months (approximately); PATIENT WAS FASTINGPERFORMED BY: [employer]Former[facility] [id number]; apt. 04-04-15 LDL/HDL Ratio 0.8 {ratio_units} (Normal) [...] Cholesterol, Total 205 mg/dL (Abnormal) Range: 100-199 3-Wxb-642761:08 PT (Prothrobim Time) (41036) Comments: today; PATIENT WAS FASTINGPERFORMED BY: [employer]Former[facility] [id number]; inr not need addressed patient on Eliqus Prothrombin Time 11.0 {sec} (Normal) Range: 9.1-12.0 INR 1.1 (Normal) Range: 0.8-1.2 Comments: Reference interval is for non-anticoagulated patients. . Suggested INR therapeutic range for Vitamin K anta gonist therapy: Standard Dose (moderate intensity therapeutic range): 2.0 - 3.0 Higher intensity therapeutic range 2.5 - 3.5 3-Rte-390957:08 POTASSIUM SERUM (39848) Comments: today; PATIENT WAS FASTINGPERFORMED BY: [employer]70 [facility] [id number] Potassium, Serum 4.4 mmol/L (Normal) Range: 3.5-5.2 10-Pav-43283:41 Comp. Metabolic Panel (14) Comments: PATIENT NOT FASTINGPERFORMED BY: [employer]6370 [employer] SportsUNC Health [id number] Information: [id number] DIFFICULT D RAW ALT (SGPT) 10 [iU]/L [...] Microscopic Examination Comments: PATIENT NOT FASTINGPERFORMED BY: [employer] Sugqog7937 [facility] [id number] Bacteria Few (Normal) Mucus Threads Present (Normal) Epithelial Cells (non renal) 0-10 {/hpf} (Normal) Range: 0 - 10 RBC 0-2 {/hpf} (Normal) Range: 0 - 2 WBC >30 {/hpf} (Abnormal) Range: 0 - 5 :41 Urinalysis, Complete Comments: PATIENT NOT FASTINGPERFORMED BY: [employer] [facility] [id number] Microscopic Examination See below: (Normal) Comments: Microscopic was indicated and was performed. Nitrite, Urine Negative (Normal) Urobilinogen,Semi-Qn 0.2 mg/dL (Normal) Range: 0.0-1.9 Bilirubin Negative (Normal) Occult Blood Negative (Normal) Ketones Negative (Normal) Glucose Negative (Normal) Protein Trace (Normal) WBC Esterase 2+ (Abnormal) Appearance Cloudy (Abnormal) Urine-Color Yellow (Normal) pH 6.0 (Normal) Range: 5.0-7.5 Specific [place] 1.015 (Normal) Range: 1.005-1.030 82-Ndt-601273:49 Prothrombin Time (PT) Comments: PATIENT NOT FASTINGPERFORMED BY: Watchful SoftwareStraith Hospital For Special Surgery6370 [facility] [id number] Information: [id number] Prothrombin Time 28.9 {sec} (Abnormal) Range: 9.1-12.0 INR 2.7 (Abnormal) Range: 0.8-1.2 Comments: Reference interval is for non-anticoagulated patients. . Suggested INR therapeutic range for Vitamin K anta gonist therapy: Standard Dose (moderate intensity therapeutic range): 2.0 - 3.0 Higher intensity therapeutic range 2.5 - 3.5 93-Zaa-433927:49 Prothrombin Time (PT) Comments: PATIENT NOT FASTINGPERFORMED BY: [address] RoadDublin [place] [id number] Information: [id number] Prothrombin Time 31.0 {sec} (Abnormal) Range: 9.1-12.0 INR 2.8 (Abnormal) Range: 0.8-1.2 Comments: Reference interval is for non-anticoagulated patients. . Suggested INR therapeutic range for Vitamin K anta gonist therapy: Standard Dose (moderate intensity therapeutic range): 2.0 - 3.0 Higher intensity therapeutic range 2.5 - 3.5 :28 Eosinophil, Urine (86024) Comments: PATIENT NOT FASTINGPERFORMED BY: [address] [id number] Information: [id number] Eosinophil, Urine No Eosinophils Seen % Comments: <5% few or none seenReceived at room temperature;interpret result with caution. (Normal) :28 Eosinophil, Urine (35691) Comments: PATIENT NOT FASTINGPERFORMED BY: [place] 1389470 [facility] [id number] Information: [id number] Eosinophil, Urine No Eosinophils Seen % Comments: <5% few or none seenReceived at room temperature;interpret result with caution. (Normal) :54 Basic Metabolic Profile (BMP) Comments: Test performed at:[facility] [address] [place] [address] GAP 5 (Normal) Range: 5-15 CO2 27.0 [...] :54 Microalb:Creat Ratio,Random UR Comments: Test performed at:[facility] [address] [place] [address] MALB:CREAT 44.5 {mg/g_CRE} (Abnormal) MICROALBUMIN,UR 52.7 mg/L (Normal) UR CREAT 118.2 mg/dL (Normal) :54 Urinalysis, Routine (Dipstick) Comments: How was Urine Obtained? CLEAN CATCHTest performed at:[facility] [address]ourg[address] [place], [place] [address] LEUK ESTERASE 100 /ul (Abnormal) OCCULT BLOOD-UR 10 /ul (Abnormal) NITRITE UR Negative (Normal) UROBILI Normal mg/dL (Normal) PROT DIPSTX 15 mg/dL (Abnormal) pH UR 5.0 (Normal) Range: 5.0 - 8.0 SP.GR. DIPSTX 1.020 (Normal) Range: 1.002-1.030 KETONE UR Negative mg/dL (Normal) BILIRUBIN URINE Negative mg/dL (Normal) GLUCOSE, UR Normal mg/dL (Normal) CLARITY Sl. Cloudy (Normal) COLOR Yellow (Normal) 87-Gcy-691679:07 Eosinophil, Urine (82248) Comments: PATIENT NOT FASTINGPERFORMED BY: Contents First [facility] [id number] Information: [id number] Eosinophil, Urine 5 % (Normal) Comments: <5% few or none seenReceived at room temperature;interpret result with caution. 73-Lop-710745:10 MICROALBUMIN: CREATININE RATIO Comments: recheck in 6 weeks; PATIENT NOT FASTINGPERFORMED BY: [employer]6370 [facility] [id number] (97029) AND (99561) Microalb/Creat Ratio 92.2 {mg/g_creat} (Abnormal) Range: 0.0-30.0 Microalbumin, Urine 180.9 ug/mL (Abnormal) Range: 0.0-17.0 Creatinine, Urine 196.2 mg/dL (Normal) Range: 15.0-278.0 82-Sbu-077963:10 Metabolic Panel, Basic Comments: recheck in 6 weeks; PATIENT NOT FASTINGPERFORMED BY: Watchful SoftwareStraith Hospital For Special Surgery6370 [facility] [id number] Information: [id number] (72692) Calcium, Serum 9.2 mg/dL (Normal) Range: 8.7-10.3 [...] Glucose, Serum 89 mg/dL (Normal) Range: 65-99 1-Odw-921209:21 CALCIFIDIOL (07147) VIT D 25 Comments: PATIENT NOT FASTINGPERFORMED BY: Watchful SoftwareStraith Hospital For Special Surgery6370 [facility] [id number] Vitamin D, 25-Hydroxy 35.5 ng/mL (Normal) Range: 30.0-100.0 Comments: Vitamin D deficiency has been defined by the [place] of[place] State Harding Hospitalcine and an Endocrine Society practice guideline as alevel of serum 25-OH vitamin D less than 20 ng/mL (1,2).The Endocrine Society went on to further define vitamin Dinsufficiency as a level between 21 and 29 ng/mL (2).1. IOM ([place] of Medicine). 2010. Dietary reference intakes for calcium and D. [place]: The National Academies Press.2. Justin MF, Jazmyn FOSTER, Aniya CANO, et al. Evaluation, treatment, and prevention of vitamin D deficiency: an Endocrine Society clinical practice guideline. JCEM. 2010; 96(7):1911-30. :22 Total Protein,24 Hour Urine Comments: PATIENT NOT FASTINGPERFORMED BY: Watchful SoftwareStraith Hospital For Special Surgery6370 [facility] [id number] (39211) Prot,24hr calculated 196.5 {mg/24_hr} (Abnormal) Range: 30.0-150.0 Protein,Total,Urine 39.3 mg/dL (Abnormal) Range: 0.0-15.0 :22 CREATININE CLEARANCE Comments: PATIENT NOT FASTINGPERFORMED BY: [facility]6370 [facility] [id number] Information: SRC:JANIA [id number] START- 4@630AM YOHAN Peres (17364) Creatinine Clearance 29 mL/min (Abnormal) Range: 88-128 [...] standing order; PATIENT NOT FASTINGPERFORMED BY: [facility]6370 [facility] [id number] Information: [id number] (37913) Prothrombin Time 26.3 {sec} (Abnormal) Range: 9.1-12.0 INR 2.4 (Abnormal) Range: 0.8-1.2 Comments: Reference interval is for non-anticoagulated patients. . Suggested INR therapeutic range for Vitamin K anta gonist therapy: Standard Dose (moderate intensity therapeutic range): 2.0 - 3.0 Higher intensity therapeutic range 2.5 - 3.5 24-Fst-390351:36 Request Problem Comments: PATIENT NOT FASTINGPERFORMED BY: [facility]6370 [facility] [id number] 98-Llu-476270:23 Vitamin B-12 (cyanocobalamin) Comments: PATIENT NOT FASTINGPERFORMED BY: [facility] Wtzgvd0159 [facility] [id number] (10446) 47-Fyo-545883:23 TSH (42392) Comments: PATIENT NOT FASTINGPERFORMED BY: CRISTA [facility]North[facility] Gjyjyy3174 [facility] [id number] :23 PT (Prothrobim Time) (97642) Comments: INR standing order do today also; PATIENT NOT FASTINGPERFORMED BY: LabStraith Hospital [facility] Surgery6370 [facility] [id number] INR 1.8 (Abnormal) Range: 0.8-1.2 Comments: Reference interval is for non-anticoagulated patients. . Suggested INR therapeutic range for Vitamin K anta gonist therapy: Standard Dose (moderate intensity therapeutic range): 2.0 - 3.0 Higher intensity therapeutic range 2.5 - 3.5 Prothrombin Time 18.4 {sec} (Abnormal) Range: 9.1-12.0 04-Xqn-646005:23 METABOLIC PANEL, COMPREHENSIVE Comments: PATIENT NOT FASTINGPERFORMED BY: [facility]6370 [facility] [id number] (39443) ALT (SGPT) 13 [iU]/L (Normal) Range: 0-32 [...] Glucose, Serum 75 mg/dL (Normal) Range: 65-99 97-Vaz-137846:23 LIPID PANEL (67555) Comments: PATIENT NOT FASTINGPERFORMED BY: TasteBookSt. Francis Medical CenterDzopbx8473 [facility] [id number] LDL/HDL Ratio 1.1 {ratio_units} (Normal) Range: 0.0-3.2 LDL Cholesterol Calc 92 mg/dL (Normal) Range: 0-99 HDL Cholesterol 82 mg/dL (Normal) Comments: According to ATP-III Guidelines, HDL-C >59 mg/dL is considered anegative risk factor for CHD. VLDL Cholesterol Alesha 38 mg/dL (Normal) Range: 5-40 Cholesterol, Total 212 mg/dL (Abnormal) Range: 100-199 Triglycerides 192 mg/dL (Abnormal) Range: 0-149 74-Ucc-031457:23 CBC WITH MANUAL DIFF Comments: PATIENT NOT FASTINGPERFORMED BY: TasteBookSt. Francis Medical CenterIyvhzu5027 [facility] [id number] Information: [id number], [id number]: [id number] (44720) Immature Grans (Abs) 0.0 {x10E3/uL} (Normal) Range: [...] 3.77-5.28 WBC 6.5 {x10E3/uL} (Normal) Range: 3.4-10.8 92-Bwy-541823:23 Sed Rate Erythrocyte (91004) Comments: PATIENT NOT FASTINGPERFORMED BY: itravelSaint Luke's Hospital [id number] Sedimentation Rate-Westergren 16 mm/h (Normal) Range: 0-40 00-Dbk-618281:50 CBC with manual diff Comments: recheck in 4 weeks; PATIENT NOT FASTINGPERFORMED BY: Contents First [facility] [id number] Information: ADD [id number] AND DRAW FEE 99 1638 (18754) Immature Grans (Abs) 0.0 {x10E3/uL} (Normal) Range: [...] (Normal) Range: 3.4-10.8 :50 Sed Rate Erythrocyte (72242) Comments: re check in 4 weeks; PATIENT NOT FASTINGPERFORMED BY: 7Summits Usvoyl0860 [facility] [id number] Sedimentation Rate-Westergren 39 mm/h (Normal) Range: 0-40 :48 PREALBUMIN (69703) Comments: PATIENT NOT FASTINGPERFORMED BY: [employer] Hynxwp8254 [facility] [id number] Prealbumin 23 mg/dL (Normal) Range: 20-40 :48 Magnesium (56221) Comments: PATIENT NOT FASTINGPERFORMED BY: 7SummitsPlains Regional Medical CenterEmirfc7274 [facility] [id number] Magnesium, Serum 1.8 mg/dL (Normal) Range: 1.6-2.6 :48 Metabolic Panel, Comments: PATIENT NOT FASTINGPERFORMED BY: 7SummitsSt. Francis Medical CenterYxrfui4106 [facility] [id number] Information: [id number] [facility] (94772) ALT (SGPT) 12 [iU]/L (Normal) Range: 0-32 [...] Glucose, Serum 86 mg/dL (Normal) Range: 65-99 78-Fqu-528829:15 CBC With Differential/Platelet Comments: PATIENT WAS FASTINGPERFORMED BY: TasteBookSt. Francis Medical CenterRbcweq1906 [facility] [id number] BY: LabCo[address] [id number] Immature Grans (Abs) 0.0 {x10E3/uL} (Normal) Range: [...] 3.77-5.28 WBC 5.9 {x10E3/uL} (Normal) Range: 4.0-10.5 52-Nud-280136:15 Comp. Metabolic Panel Comments: PATIENT WAS FASTINGPERFORMED BY: CB [facility] Ssguow2376 [facility] [id number] BY: BN [facility] Rgrgslnqyn1118 [facility] [id number] (14) ALT (SGPT) 7 [iU]/L (Normal) Range: [...] 16.5 umol/L Comments: PATIENT WAS FASTINGPERFORMED BY: 7Summits Btsqgk[address] [place] [address] [id number] BY: TasteBook[address] [id number] :15 Plasma (Abnormal) Range: 0.0-15.0 :15 Lipid Panel With LDL/HDL Comments: PATIENT WAS FASTINGPERFORMED BY: VoloMedialin[address] [place] [address] [id number] BY: TasteBook[address] [id number] Ratio LDL/HDL Ratio 0.7 {ratio_units} Range: 0.0-3.2 [...] nmol/L (Normal) Comments: PATIENT WAS FASTINGPERFORMED BY: Contents First [facility] [id number] BY: TasteBook[address] [id number] 310:15 Serum Range: 73-376 Comments: The reference range for methylmalonic acid has been set at +3sd abovethe mean for healthy blood bank donors. In the clinical assessment ofpatients with megaloblastic anemias a cutoff of +3sd provides gr eaterspecificity in the diagnosis of the vitamin deficiency states,despite the sacrifice of some sensitivity. 14-Zfc-347380:15 Prothrombin Time (PT) Comments: PATIENT WAS FASTINGPERFORMED BY: [employer]70 [facility] [id number] BY: TasteBook[address] [id number] Prothrombin Time 20.5 {sec} (Abnormal) Range: 9.1-12.0 INR 2.0 (Abnormal) Range: 0.8-1.2 Comments: Reference interval is for non-anticoagulated patients. . Suggested INR therapeutic range for Vitamin K anta gonist therapy: Standard Dose (moderate intensity therapeutic range): 2.0 - 3.0 Higher intensity therapeutic range 2.5 - 3.5 TSH 0.706 {uIU/mL} Comments: PATIENT WAS FASTINGPERFORMED BY: Contents First [facility] [id number] BY: Watchful Software[address] [id number] :15 (Normal) Range: 0.450-4.500 90-Aly-659967:15 Vitamin B12 and Folate Comments: PATIENT WAS FASTINGPERFORMED BY: CB LabStraith Hospital For [facility] Surgery6370 [facility] [id number] BY: Watch[employer] Software[address] [id number] Folate (Folic Acid), >19.9 ng/mL (Normal) Comments: A serum folate concentration of less than 3.1 ng/mL isconsidered to represent clinical deficiency. Serum Vitamin B12 561 pg/mL (Normal) Range: 211-946 Vitamin D, 49.7 ng/mL (Normal) Comments: PATIENT WAS FASTINGPERFORMED BY: TasteBookSt. Francis Medical CenterPjnabt0896 [facility] [id number] BY: TasteBook[address] [id number] :15 25-Hydroxy Range: 30.0-100.0 Comments: Vitamin D deficiency has been defined by the [place] ofMedicine and an Endocrine Society practice guideline as alevel of serum 25-OH vitamin D less than 20 ng/mL (1,2).The Endocrine Society went on to further define vitamin Dinsufficiency as a level between 21 and 29 ng/mL (2).1. IOM ([place] of Medicine). 2010. Dietary reference intakes for calcium and D. [place]: The National Academies Press.2. Justin MF, Jazmyn FOSTER, Aniya CANO, et al. Evaluation, treatment, and prevention of vitamin D deficiency: an Endocrine Society clinical practice guideline. JCEM. 2010; 96(7):1911-30. :20 PT (Prothrobim Time) (53088) Comments: standing order; PATIENT NOT FASTINGPERFORMED BY: Watchful SoftwareStraith Hospital For [facility] Surgery6370 [facility] [id number] Prothrombin Time 28.6 {sec} (Abnormal) Range: 9.1-12.0 INR 2.8 (Abnormal) Range: 0.8-1.2 Comments: Reference interval is for non-anticoagulated patients. . Suggested INR therapeutic range for Vitamin K anta gonist therapy: Standard Dose (moderate intensity therapeutic range): 2.0 - 3.0 Higher intensity therapeutic range 2.5 - 3.5 05-Zvn-323700:30 CBC With Differential/Platelet Comments: PERFORMED BY: CRISTA [employer] Kjduzo1074 [facility] [id number] BY: NINA TasteBookAmy Ville 986007 [facility] [id number] Information: PER [facility] 03-07-12 RANDOM U Immature Grans (Abs) 0.0 [...] 3.77-5.28 WBC 9.1 {x10E3/uL} (Normal) Range: 4.0-10.5 21-Cvw-762363:30 Chromium, Urine Comments: PERFORMED BY: CRISTA AudienceViewlin6370 [facility] [id number] BY: [address] [id number] Chromium/Creat Ratio 0.2 {ug/g_creat} Range: 0.0-4.9 (Normal) Comments: Environmental Exposure: 0.0 - 4.9 Occupational Exposure: RAEGAN 25.0 Chromium, Urine 0.3 ug/L (Normal) Range: 0.1-2.0 Comments: Detection Limit = 0.10 20-Feb- Ferritin, Serum 64 ng/mL (Normal) Comments: PERFORMED BY: [address] [id number] BY: [address] [id number] 214:30 Range: 13-150 20-Dec-201 Homocyst(e)ine, Plasma 32.2 umol/L Comments: PERFORMED BY: [address] [id number] BY: [address] [id number] 214:30 (Abnormal) Range: 0.0-15.0 20-Dec-201 Iron, Serum 38 ug/dL (Normal) Comments: PERFORMED BY: [place] 1389470 [facility] [id number] BY: [address] [id number] 214:30 Range: 35-155 20-Feb-201 Magnesium, Serum 1.8 mg/dL (Normal) Comments: PERFORMED BY: [place] 1389470 [facility] [id number] BY: [address] [id number] 214:30 Range: 1.6-2.6 20-Dec-201 Methylmalonic Acid, 525 nmol/L (Abnormal) Comments: PERFORMED BY: [address] [id number] BY: [address] [place] [id number] 214:30 Serum Range: 73-376 Comments: Verified by repeat analysisThe reference range for methylmalonic acid has been set at +3sd abovethe mean for healthy blood bank donors. In the clinical assessment ofpatients with megaloblastic anemi as a cutoff of +3sd provides greaterspecificity in the diagnosis of the vitamin deficiency states,despite the sacrifice of some sensitivity. Phosphorus, Serum 3.6 mg/dL (Normal) Comments: PERFORMED BY: [employer]Book Qoabsb4539 [facility] [id number] BY: [address] [id number] 214:30 Range: 2.5-4.5 PTH, Intact 32 pg/mL (Normal) Comments: PERFORMED BY: [employer] [facility] [id number] BY: [address] [id number] 214:30 Range: 15-65 Sedimentation 21 mm/h (Normal) Comments: PERFORMED BY: T[employer]Book [employer] [facility] [id number] BY: [address] [id number] 214:30 Rate-Westergren Range: 0-40 Vitamin A, Serum 88 ug/dL (Abnormal) Comments: PERFORMED BY: [employer] [facility] [id number] BY: [address] [id number] 214:30 Range: 18-77 54-Rxa-283237:30 Vitamin B12 and Folate Comments: PERFORMED BY: [employer] Svlyfz3711 [facility] [id number] BY: [address] [id number] Folate (Folic Acid), >19.9 ng/mL (Normal) Comments: A serum folate concentration of less than 3.1 ng/mL isconsidered to represent clinical deficiency. Serum Vitamin B12 326 pg/mL (Normal) Range: 211-946 Vitamin D, 21.0 ng/mL Comments: PERFORMED BY: TasteBookTimothy V[place] 2290370 [facility] [id number] BY: [address] [id number] :30 25-Hydroxy (Abnormal) Range: 30.0-100.0 Comments: Vitamin D deficiency has been defined by the [place] ofMedicine and an Endocrine Society practice guideline as alevel of serum 25-OH vitamin D less than 20 ng/mL (1,2).The Endocrine Society went on to further define vitamin Dinsufficiency as a level between 21 and 29 ng/mL (2).1. IOM ([place] of Medicine). 2010. Dietary reference intakes for calcium and D. [place]: The National Academies Press.2. Justin MF, Jazmyn FOSTER, Aniya CANO, et al. Evaluation, treatment, and prevention of vitamin D deficiency: an Endocrine Society clinical practice guideline. JCEM. 2010; 96(7):1911-30. :30 Zinc, Urine Comments: PERFORMED BY: TasteBookSt. Francis Medical CenterSvhjap8199 [facility] [id number] BY: [address] [id number] Zinc/Creat. Ratio 497 {ug/g_creat} (Normal) Range: 100-900 Creatinine(Riveting Machine Operator Automatic),U 1.95 g/L (Normal) Range: 0.30-3.00 Comments: Detection [...] Sarkar D.O.December 05, 2011 at 7:36:04 PM [id number] Signed IF/IF If you are the referring physician and would like to consult with theradiologist who provided this interpretation, please contact Fabian Sarkar D.O.at [phone]. If this radiologist is unavailable, you will be directedto another radiologist to assist. If you are a patient with a question regarding this report, pleasecontactyour referring physician directly. Professional Interpretation Provided By: Lever, Phone , Thes e documents contain legally [...] or destructionofthese documents. Dictated on 12/05/11803 by Glenna Sarkar DOinTranscribed on 12/05/111941 by ITS IMPORTSign by Fabian Sarkar DO on 12/05/111942 Sign by: Fabian Sarkar DO 2-Kud-770470:10 Metabolic Panel, Comprehensive Comments: copy to Dr. shukla; PATIENT NOT FASTINGPERFORMED BY: LabStraith [facility] Surgery6370 [facility] [facility] [id number] ([id number]) ALT (SGPT) 16 [iU]/L (Normal) Range: 0-40 [...] Glucose, Serum 85 mg/dL (Normal) Range: 65-99 2-Yyw-442803:10 CBC, Platelets & Auto Diff Comments: PATIENT NOT FASTINGPERFORMED BY: [facility] [id number] [facility] [id number] Information: [id number] ([id number]) Immature Grans (Abs) 0.0 {x10E3/uL} (Normal) Range: [...] 3.77-5.28 WBC 8.1 {x10E3/uL} (Normal) Range: 4.0-10.5 4-Emn-547576:10 Sed Rate Erythrocyte (70511) Comments: PATIENT NOT FASTINGPERFORMED BY: [facility]BookSt. Francis Medical CenterCwpumi1480 [facility] [id number] Sedimentation Rate-Westergren 53 mm/h (Abnormal) Range: 0-40 28-Rqe-955356:14 Basic Metabolic Panel (8) Comments: PERFORMED BY: [employer] [id number] [facility] [id number] Calcium, Serum 9.9 mg/dL (Normal) Range: 8.6-10.2 [...] cells when received.This may adversely affect serumChemistries. 54-Iaf-487365:14 Protein Electro, Random Urine Comments: PERFORMED BY: LabSun[facility] FoundationSt. Francis Medical CenterSbjwgy2125 [facility] [id number] Please note: SPRCS (Normal) Comments: Protein electrophoresis scan will follow via computer, mail, orcourier delivery. Gzwvz-7-Uqgzoznx, U 8.9 % (Normal) Beta Globulin, U 25.6 % (Normal) Gamma Globulin, U 26.9 % (Normal) M-Navarro, % Not Observed % (Normal) Albumin, U 36.2 % (Normal) Ftubc-5-Bjbgodmb, U 2.5 % (Normal) Protein,Total,Urine 40.0 mg/dL (Abnormal) Range: 0.0-15.0 15-Tow-049825:14 Protein Electro.,S Comments: PERFORMED BY: [facility]6370 [facility] [id number] Please note: SPRCS (Normal) Comments: Protein electrophoresis scan will follow via computer, mail, orcourier delivery. A/G Ratio 1.1 (Normal) Range: 0.7-2.0 Jcjkp-3-Fvdgqpbv 0.2 g/dL (Normal) Range: 0.1-0.4 Rnorz-3-Tkopgzjy 0.9 g/dL (Normal) Range: 0.4-1.2 Beta Globulin 1.4 g/dL (Abnormal) Range: 0.6-1.3 Gamma Globulin 1.0 g/dL (Normal) Range: 0.5-1.6 Globulin, Total 3.5 g/dL (Normal) Range: 2.0-4.5 M-Navarro Not Observed g/dL (Normal) Albumin 4.0 g/dL (Normal) Range: 3.2-5.6 Protein, Total, Serum 7.5 g/dL (Normal) Range: 6.0-8.5 7-Qcc-450615:10 HEP-ABC [id number] HB CORE [id number] SeeNote (Normal) Comments: Result: Negative HB SURF [...] total amount of antibody present. HEP A AB,T.6789 SeeNote (Normal) Comments: Result: Negative HEP A IgM 6734 SeeNote (Normal) Comments: Result: Negative HEP B CORE,TOT SeeNote (Normal) Comments: Result: Negative HVC Ab <0.1 (Normal) Range: 0.0-0.9 Comments: INFCE Result Units: s/co ratioNegativeNot infected with HCV, unless recent infection issuspected or other evidence exists to indicate HCVinfection.Performed At: [facility] [place], [place] [id number] RIBA RESULT <TEST NOT PERFORMED> (Normal) :10 [...] Indication: Low back pain Planned Observations CALCIFIDIOL (27916) VIT D 25Indication: Vitamin D deficiency On: 64-Duv-999029:01 Request Renal function Panel (69945)Indication: Chronic kidney disease, stage III (moderate) On: 13-Dom-088875:00 Request TSH (85111)Indication: Hypothyroidism On: 01-Pdi-566691:59 Request URINALYSIS (13908)Indication: Chronic kidney disease, stage III (moderate) On: 37-Ncf-210092:36 Request MICROALBUMIN: CREATININE RATIO (32051) AND (96232)Indication: Chronic kidney disease, stage III (moderate) On: 37-Sra-896453:35 Request METABOLIC PANEL, COMPREHENSIVE (77585)Indication: Chronic kidney disease, stage III (moderate) On: 3-Lhn-197296:59 Request CALCIFIDIOL (38002) VIT D 25Indication: Vitamin D deficiency On: 1-Atu-386450:59 Request CARMEN CULTURE-OTHER (45294)Indication: Vaginal discharge On: 06-Nrh-602162:46 Request Comments: vagina BACT CULTURE ANY-ANAEROBIC (63178)Indication: Vaginal discharge On: 80-Gxv-269694:13 Request Comments: of vaginal fluid PHOSPHORUS (02749)Indication: Chronic kidney disease, stage III (moderate) On: 60-Drl-460200:26 Request Comments: do before November office visit PHOSPHORUS (78745)Indication: Malnutrition On: 23-Aug-20179:21 Request Phosphorus (97764)Indication: Malnutrition On: 81-Psq-209149:42 Request Magnesium (11558)Indication: Malnutrition On: 84-Tpa-976975:42 Request C-Reactive Protein (46883)Indication: Osteomyelitis of pelvic region On: 22-Sdq-773207:04 Request METABOLIC PANEL, COMPREHENSIVE (08120)Indication: Benign essential HTN On: 03-Kgk-299208:52 Request URIC ACID BLOOD (86434)Indication: Abnormal blood chemistry On: 95-Kpg-051227:52 Request Iron (02162)Indication: Anemia On: 53-Siz-363731:44 Request Iron Binding Capacity (TIBC) (35976)Indication: Anemia, chronic disease On: :53 Request Comments: in 6 weeks Iron (61060)Indication: Anemia, chronic disease On: :53 Request Comments: in 6 weeks Metabolic Panel, Comprehensive (18509)Indication: Benign essential HTN On: :52 Request Comments: now and in 6 weeks T4, FREE (THYROXINE) (03734)Indication: Hypothyroidism On: :52 Request Comments: now and in 6 weeks TSH (23999)Indication: Hypothyroidism On: :52 Request Comments: now and in 6 weeks CBC, Platelets & Auto Diff (96167)Indication: Anemia, chronic disease On: :51 Request Comments: now and in 6 weeks Total Protein,24 Hour Urine (84252)Indication: Chronic kidney disease, stage III (moderate) On: :50 Request CREATININE CLEARANCE (00114)Indication: Chronic kidney disease, stage III (moderate) On: :49 Request FECAL OCCULT-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
--- OUTSIDE RECORDS SUMMARY | 2018-03-25 11:27 | XMS RPT_ITS | Continuity of Care Document ---
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 [facility]6370 [facility] [id number] TSH 0.920 {uIU/mL} (Normal) Range: 0.450-4.500 :58 Protein Electro, Random Urine Comments: PATIENT NOT FASTINGPERFORMED BY: [facility]6370 [facility] [id number] Please note: SPRCS (Normal) Comments: Protein electrophoresis scan will follow via computer, mail, orcourier delivery. M-Navarro, % Not Observed % (Normal) Gamma Globulin, U 42.4 % (Normal) Beta Globulin, U 19.9 % (Normal) Hmjjk-3-Pedhkjrc, U 8.9 % (Normal) Ufjcs-0-Zqytezra, U 6.0 % (Normal) Albumin, U 22.7 % (Normal) Protein,Total,Urine 58.1 mg/dL (Normal) :58 TSH (84685) Comments: PATIENT NOT FASTINGPERFORMED BY: [facility]6370 [facility] [id number] TSH 0.056 {uIU/mL} (Abnormal) Range: 0.450-4.500 :58 T3, FREE (TRIDOTHYRONINE) (97602) Comments: PATIENT NOT FASTINGPERFORMED BY: [facility]6370 [facility] [id number] Triiodothyronine,Free,Serum 2.4 pg/mL (Normal) Range: 2.0-4.4 :58 T4, FREE (THYROXINE) (53231) Comments: PATIENT NOT FASTINGPERFORMED BY: [facility]6370 [facility] [id number] T4,Free(Direct) 2.53 ng/dL (Abnormal) Range: 0.82-1.77 :58 IRON BINDING CAPACITY (TIBC) Comments: PATIENT NOT FASTINGPERFORMED BY: [facility]6370 [facility] [id number] (72892) Iron Saturation 4 % (Abnormal) Range: 15-55 Iron, Serum 18 ug/dL (Abnormal) Range: 27-139 UIBC 388 ug/dL (Abnormal) Range: 118-369 Iron Bind.Cap.(TIBC) 406 ug/dL (Normal) Range: 250-450 :58 FERRITIN (45765) Comments: PATIENT NOT FASTINGPERFORMED BY: [facility]6370 [facility] [id number] Ferritin, Serum 24 ng/mL (Normal) Range: 15-150 :58 Sed Rate Erythrocyte (08754) Comments: PATIENT NOT FASTINGPERFORMED BY: [facility]6370 [facility] [id number] Sedimentation Rate-Westergren 73 mm/h (Abnormal) Range: 0-40 :58 Serum Protein Electrophoresis Comments: PATIENT NOT FASTINGPERFORMED BY: MoreboatsHenry [facility] Hospital6370 [facility] [id number] (SPEP) (12413) Please note: SPRCS (Normal) Comments: Protein electrophoresis scan will follow via computer, mail, orcourier delivery. A/G Ratio 0.7 (Normal) Range: 0.7-1.7 Globulin, Total 4.2 g/dL (Abnormal) Range: 2.2-3.9 M-Navarro Not Observed g/dL (Normal) Gamma Globulin 1.2 g/dL (Normal) Range: 0.4-1.8 Beta Globulin 1.4 g/dL (Abnormal) Range: 0.7-1.3 Aibkx-8-Nystncgi 1.1 g/dL (Abnormal) Range: 0.4-1.0 Lysqb-3-Kouefipk 0.4 g/dL (Normal) Range: 0.0-0.4 Albumin 3.1 g/dL (Normal) Range: 2.9-4.4 :58 MAGNESIUM (40542) Comments: PATIENT NOT FASTINGPERFORMED BY: [facility]6370 [facility] [id number] Magnesium, Serum 1.8 mg/dL (Normal) Range: 1.6-2.3 :58 PHOSPHORUS (83041) Comments: PATIENT NOT FASTINGPERFORMED BY: [facility]6370 [facility] [id number] Phosphorus, Serum 4.7 mg/dL (Abnormal) Range: 2.5-4.5 :58 CALCIFEDIOL (98520) Comments: PATIENT NOT FASTINGPERFORMED BY: [facility]6370 [facility] [id number] Vitamin D, 25-Hydroxy 34.5 ng/mL (Normal) Range: 30.0-100.0 Comments: Vitamin D deficiency has been defined by the [place] of[place] and an Endocrine Society practice guideline as alevel of serum 25-OH vitamin D less than 20 ng/mL (1,2).The Endocrine Society went on to further define vitamin Dinsufficiency as a level between 21 and 29 ng/mL (2).1. IOM ([place] of [employer]). 2010. Dietary reference intakes for calcium and D. [place]va [place]: The National Academies Press.2. Justin MF, Jazmyn NC, Aniya CANO, et al. Evaluation, treatment, and prevention of vitamin D deficiency: an Endocrine Society clinical practice guideline. JCEM. 2010; 96(7):1911-30. 37-Mrz-701022:58 PARATHORMONE (89503) Comments: PATIENT NOT FASTINGPERFORMED BY: [employer] [facility] Tksaft8105 [place] [id number] PTH, Intact 41 pg/mL (Normal) Range: 15-65 72-Vvv-242624:58 METABOLIC PANEL, Comments: PATIENT NOT FASTINGPERFORMED BY: [facility] Zpywoc7207 [facility] [id number] Information: DIFFICULT DRAW COMPREHENSIVE (92491) ALT (SGPT) 21 [iU]/L (Normal) Range: 0-32 [...] Glucose, Serum 63 mg/dL (Abnormal) Range: 65-99 6-Gwm-325849:04 Vitamin B-12 (cyanocobalamin) Comments: PATIENT WAS FASTINGPERFORMED BY: Silk[address] [id number] BY: LabHenry [facility] Hospital6370 [facility] [id number] (18245) Vitamin B12 >2000 pg/mL (Abnormal) Range: 211-946 6-Qji-727077:04 CBC WITH MANUAL DIFF Comments: PATIENT WAS FASTINGPERFORMED BY: LabJ&J Solutions[address] [id number] BY: LabJ&J SolutionsCarrie Tingley HospitalTfmilo9068 [facility] [id number] (74867) Immature Grans (Abs) 0.0 {x10E3/uL} (Normal) Range: [...] 3.77-5.28 WBC 7.6 {x10E3/uL} (Normal) Range: 3.4-10.8 6-Qyh-045948:04 LIPOPROTEIN, BLD, BY NMR Comments: PATIENT WAS FASTINGPERFORMED BY: BN [facility] Bvploqgdwc0421 [facility] [id number] BY: CB [facility] Nvqchq8080 [facility] [id number] (35343) LP-IR Score 33 (Normal) Comments: INSULIN RESISTANCE [...] were developed and their performance characteristicsdetermined by [employer]. These assays have not been cleared by [...] 1600 - 2000 Very High > 2000 26-Mdh-165660:36 UPEP (57983) Comments: PATIENT WAS FASTINGPERFORMED BY: [email or web address] [place] [id number] Please note: SPRCS (Normal) Comments: Protein electrophoresis scan will follow via computer, mail, orcourier delivery. M-Navarro, % Not Observed % (Normal) Gamma Globulin, U 26.0 % (Normal) Beta Globulin, U 31.1 % (Normal) Uqprg-8-Rncvsutd, U 9.8 % (Normal) Sjdod-3-Lbjfhfnk, U 2.5 % (Normal) Albumin, U 30.7 % (Normal) Protein,Total,Urine 35.3 mg/dL (Normal) 37-Rnz-281317:36 SPEP (89383) Comments: PATIENT WAS FASTINGPERFORMED BY: [employer] [employer] [place] [id number] Please note: SPRCS (Normal) Comments: Protein electrophoresis scan will follow via computer, mail, orcourier delivery. A/G Ratio 0.7 (Normal) Range: 0.7-1.7 Globulin, Total 4.2 g/dL (Abnormal) Range: 2.2-3.9 M-Navarro Not Observed g/dL (Normal) Gamma Globulin 1.0 g/dL (Normal) Range: 0.4-1.8 Beta Globulin 1.5 g/dL (Abnormal) Range: 0.7-1.3 Bonnq-2-Peutxacs 1.3 g/dL (Abnormal) Range: 0.4-1.0 Pzbof-0-Yjkfgrlx 0.4 g/dL (Normal) Range: 0.0-0.4 Albumin 3.0 g/dL (Normal) Range: 2.9-4.4 :36 Lipid Panel (65353) Comments: PATIENT WAS FASTINGPERFORMED BY: [employer] Qjxrae2104 [facility] [id number] LDL/HDL Ratio 0.9 {ratio_units} (Normal) Range: 0.0-3.2 [...] Panel, Comprehensive Comments: PATIENT WAS FASTINGPERFORMED BY: [employer]6370 [facility] [id number] (20067) ALT (SGPT) 18 [iU]/L (Normal) Range: 0-32 [...] Glucose, Serum 103 mg/dL (Abnormal) Range: 65-99 08-Tak-504375:36 CBC WITH MANUAL DIFF Comments: PATIENT WAS FASTINGPERFORMED BY: [facility] Srtvmd7402 [facility] [id number] Information: DIFFICULT DRAW (90552) Immature Grans (Abs) 0.0 {x10E3/uL} (Normal) Range: [...] 3.77-5.28 WBC 7.1 {x10E3/uL} (Normal) Range: 3.4-10.8 82-Fkc-853872:36 LDH (LD) (LACTATE DEHYDROGENASE) Comments: PATIENT WAS FASTINGPERFORMED BY: Silk C-sam [facility] [id number] (48010) LDH 161 [iU]/L (Normal) Range: 119-226 39-Ktq-417052:36 Vitamin B-12 (cyanocobalamin) Comments: PATIENT WAS FASTINGPERFORMED BY: Silk C-sam [facility] [id number] (67631) Vitamin B12 717 pg/mL (Normal) Range: 211-946 11-Nwp-543077:36 Iron Binding Capacity (TIBC) Comments: PATIENT WAS FASTINGPERFORMED BY: Silk C-sam [facility] [id number] (24250) Iron Saturation 7 % (Abnormal) Range: 15-55 Iron, Serum 29 ug/dL (Normal) Range: 27-139 UIBC 386 ug/dL (Abnormal) Range: 118-369 Iron Bind.Cap.(TIBC) 415 ug/dL (Normal) Range: 250-450 19-Nsm-379919:36 Ferritin (90042) Comments: PATIENT WAS FASTINGPERFORMED BY: SilkCarrie Tingley HospitalQoyygf1321 [facility] [id number] Ferritin, Serum 43 ng/mL (Normal) Range: 15-150 45-Ghe-039676:36 Folic Acid Serum (77594) Comments: PATIENT WAS FASTINGPERFORMED BY: [facility]6370 [facility] [id number] Folate (Folic Acid), Serum 11.3 ng/mL (Normal) Comments: A serum folate concentration of less than 3.1 ng/mL isconsidered to represent clinical deficiency. :36 TSH (87627) Comments: PATIENT WAS FASTINGPERFORMED BY: [facility]6370 [facility] [id number] TSH 0.530 {uIU/mL} (Normal) Range: 0.450-4.500 :36 T4, FREE (THYROXINE) (09831) Comments: PATIENT WAS FASTINGPERFORMED BY: [place] 5664770 [facility] [id number] T4,Free(Direct) 1.90 ng/dL (Abnormal) Range: 0.82-1.77 :36 T3, FREE (TRIDOTHYRONINE) (58260) Comments: PATIENT WAS FASTINGPERFORMED BY: [facility]6370 [facility] [id number] Triiodothyronine,Free,Serum 1.9 pg/mL (Abnormal) Range: 2.0-4.4 :23 CBC W/Diff, Automated Comments: [facility] [address] [place], [address] Absolute Lymph 2.62 {X10_3/ul} (Normal) Range: 0.83-4.51 [...] Range: 4.4-11.0 24-Nov-20158:23 Comprehensive Metabolic Profil Comments: [facility] [address] [place], [place], [id number] GAP 7 (Normal) Range: 5-15 CO2 27.0 [...] :23 Free T3 Comments: [facility] Hegcbyfjnf1626 [place] [address] FREE T3 1.3 pg/mL (Abnormal) Range: 2.18-3.98 :23 Lipase Comments: [facility] Tjmcmhjnxy9463 [place] [address] LIPASE 130 U/L (Normal) Range: 73-393 :23 T4 Free Direct Comments: [facility] Ducnlcajml1172 [place] [address] T4 FREE DIRECT 1.45 ng/dL (Normal) Range: 0.76-1.46 :23 Thyroid Stim Hormone (TSH) Comments: [facility] Hqdncvnvxi4863 [place] [place] 077515(297) TSH 17.10 {uIU/mL} (Abnormal) Range: 0.358-3.74 :22 CRP Comments: Order Date: 11/22/15Order Date: 11/22/15[facility] Smyscazwgh5925[address] [place] [address] C-REACTIVE PROT 11.80 mg/L (Abnormal) Range: 0.0-3.0 Comments: C-Reactive Protein (CRP) provides useful information for thediagnosis, therapy and monitoring of inflammatory processesand associated diseases. For the evaluation of Relative Riskfor Cardiovascular Dise ase, a High Sensitivity CRP (HSCRP)should be ordered. :22 Erythrocyte Sed Rate Comments: Order Date: 11/22/15Interface Comments: Reason:Order Date: 11/22/15[facility] Ocbwxhystc7007[place] [address] SED RATE 83 mm/h (Abnormal) Range: 0-30 3-Agx-320069:29 Culture, Wound Comments: [facility] Xggsehwelm[address] [place], [id number] CUW See Note (Normal) Comments: Order Date: 11/22/15 Gram StainGram Stain 1+ Red Cell Stroma Rare Gram positive cocci Wound CulturePossible skin contamination, further Identification and sensitivity will be performed only by physi jamshid's request. ORGANISM 1: Coag Negative StaphAmount Growth Rare :11 CBC W/Diff, Automated Comments: [facility] Uoxmwuunji10[address] [place], [id number] Absolute Lymph 2.98 {X10_3/ul} (Normal) Range: 0.83-4.51 [...] Patient Taking Vitamins or Folic Acid Supplements? [facility] Exojxgergt8301 [place], [address] GAP 7 (Normal) Range: 5-15 CO2 28.0 [...] Patient Taking Vitamins or Folic Acid Supplements? [facility] Indmmsgumd7[address] [place], [id number] CRP HIGH SENS 1.79 mg/L (Normal) Comments: Low Relative Risk of CVD <1.0 mg/L Average Relative Risk of CVD 1.0 - 3.0 mg/L High Relative Risk of CVD >3.0 mg/L 62-Kho-27279:11 Erythrocyte Sed Rate Comments: [facility] [address] [place], [id number] SED RATE 37 mm/h (Abnormal) Range: 0-30 :11 Folates, (Folic Acid) Comments: Is Patient Taking Vitamins or Folic Acid Supplements? [facility] Rdktcxjqcm8430 [address] [place], [id number] FOLATES 30.20 ng/mL (Abnormal) Range: 3.1-17.5 :11 Lipid Profile Comments: Is Patient Taking Vitamins or Folic Acid Supplements? [facility] [address] [place], [address] VLDL 16 mg/dL (Normal) Range: 5-40 LDL [...] :11 Vitamin B12 694 pg/mL (Normal) Comments: [facility] Jcspobtrne6059 [address] [place], [id number] Range: 211-911 68-Gim-38657:11 Vitamin D,25 Hydroxy Comments: [facility] Wvyujfocjr3169 [place], [address] Vitamin D 25-OH > 150.0 ng/mL (Normal) [...] falsely elevatedvalues when tested with the Advia Finaltaaur Vitamin D assay.With fluorescein interference, observed Vitamin D values canbe as high as >150 ng/mL (>375 nmol/L). Samples should beresubmitted post fluorescein clearance to ensure there is nointerference with Vitamin D test results. :01 Protein+Creatinine Ratio,Urine Comments: [facility] Cygclxhstm55[address] [place], [id number] PROT:CRE RATIO 276 {mg/g_CRE} (Abnormal) Range: 0-200 PROTEIN,UR.RAN. 60.7 mg/dL (Abnormal) UR CREAT 220.00 mg/dL (Normal) :01 Renal Profile Comments: [facility] Pvgmwmuxlg8349 [address] [place], [address] CO2 30.0 mmol/L (Normal) Range: 21.0-32.0 CL [...] 7-18 GLU 97 mg/dL (Normal) Range: 70-110 4-Zhc-778616:20 Urinalysis, Complete Comments: Order Date: 09/23/15Has pt arrived? YHow was Urine Obtained? [employer] TO SPECIFYAv[facility] Hospital [address]jwokliy[address] [place], [address] YEAST-URINE 1+ {/hpf} (Normal) MUCUS, [...] CLARITY Sl. Cloudy (Normal) COLOR Yellow (Normal) 6-Edj-820546:30 CBC W/Diff, Automated Comments: [facility] Peiwpbkbuf0[address] [place], [address] Absolute Lymph 2.14 {X10_3/ul} (Normal) [...] 4.2-5.4 WBC 9.9 K/mm3 (Normal) Range: 4.4-11.0 6-Qpd-706229:30 Comprehensive Metabolic Profil Comments: [facility] Aeojqtkokp68[address] [place], [address] GAP 9 (Normal) Range: 5-15 CO2 20.0 [...] 7-18 GLU 107 mg/dL (Normal) Range: 70-110 2-Jyf-840363:30 Lipase Comments: [facility] Obzaejpxxp8[address] [place], [place], [address] LIPASE 542 U/L (Abnormal) Range: 73-393 79-Adb-06108:45 Vitamin B-12 (cyanocobalamin) Comments: PATIENT WAS FASTINGPERFORMED BY: [employer] Skhqrf4656 [facility] [id number] (34672) Vitamin B12 998 pg/mL (Abnormal) Range: 211-946 :45 METABOLIC PANEL, COMPREHENSIVE Comments: PATIENT WAS FASTINGPERFORMED BY: [employer] LabCoCurves Zwhckt7070 [facility] [id number] (72666) ALT (SGPT) 48 [iU]/L (Abnormal) Range: 0-32 [...] Glucose, Serum 98 mg/dL (Normal) Range: 65-99 48-Bax-45576:45 CBC with auto diff Comments: PATIENT WAS FASTINGPERFORMED BY: LabCoBayshore Community HospitalMonpzo8330 [facility] [id number] Information: [id number] (86090) Immature Grans (Abs) 0.0 {x10E3/uL} (Normal) Range: [...] 8.3 {x10E3/uL} (Normal) Range: 3.4-10.8 :45 TSH (09173) Comments: PATIENT WAS FASTINGPERFORMED BY: [facility] Vwollg6728 [facility] [id number] TSH 25.460 {uIU/mL} (Abnormal) Range: 0.450-4.500 36-Rof-364680:16 Renal Profile Comments: [facility] Mwinekchts4[address] [place], [address] CO2 23.0 mmol/L (Normal) Range: 21.0-32.0 CL [...] 7-18 GLU 108 mg/dL (Normal) Range: 70-110 52-Fzl-329551:07 Culture, Urine Comments: [facility] Gnfvffwild08[address] [place], [address] CUUR See Note (Normal) Comments: Urine CultureORGANISM 1: Streptococcus mitis/ oralisColony Count 50,000-80,000 Streptococcus mitis/ oralis: REACTION Ampicillin $ <=0.25 S Benzylpenicillin NF 8 R Ceftriaxone (other dx) $ <=0.12 S Levofloxacin $ 8 R Tetracycline NF >=16 R Vancomycin $ 0.25 S(NF) indicates non-formulary drug at [facility]. Approval by Infectious Disease Specialist required b efore non-formulary drugs may be ordered and/or dispensed. * CLSI guidelines does not recommend testing of cephalosporins. This interpretation is deduced from Beta-lactam/penicillin results. :58 CALCIFIDIOL (10760) VIT D 25 Comments: PATIENT NOT FASTINGPERFORMED BY: [employer]k Ictkti4007 [facility] [id number] Vitamin D, 25-Hydroxy 43.7 ng/mL (Normal) Range: 30.0-100.0 Comments: Vitamin D deficiency has been defined by the [place] of[place]icine and an Endocrine Society practice guideline as alevel of serum 25-OH vitamin D less than 20 ng/mL (1,2).The Endocrine Society went on to further define vitamin Dinsufficiency as a level between 21 and 29 ng/mL (2).1. IOM ([place] of Medicine). 2010. Dietary reference intakes for calcium and D. [place]: The National Academies Press.2. Justin MF, Jazmyn [place], Aniya CANO, et al. Evaluation, treatment, and prevention of vitamin D deficiency: an Endocrine Society clinical practice guideline. JCEM. 2010; 96(7):1911-30. :58 METABOLIC PANEL, Comments: PATIENT NOT FASTINGPERFORMED BY: [facility] Hghgba6588 [facility] [id number] Information: [id number] DIFFICULT D RAW; apt. 4-25 COMPREHENSIVE (43989) ALT (SGPT) 11 [iU]/L (Normal) Range: 0-32 [...] Glucose, Serum 95 mg/dL (Normal) Range: 65-99 57-Ewq-226690:59 Metabolic Panel, Basic Comments: PATIENT NOT FASTINGPERFORMED BY: LabCoBayshore Community HospitalDvaiex5205 [facility] [id number] Information: [id number] (41910) Calcium, Serum 7.8 mg/dL (Abnormal) Range: 8.7-10.3 [...] (Abnormal) Range: 65-99 Comments: Client Requested Flag 68-Dcg-936678:23 Urinalysis, Office (49107) UA - LEUKOCYTE ESTERASE Trace (Normal) UA - NITRITE Negative (Normal) URINE UROBILINGN EVY TIMED Normal mg/dL (Normal) UA - PROTEIN 30 mg/dL (Normal) UA - PH 6.0 (Normal) UA - BLOOD Negative (Normal) UA - SPECIFIC GRAVITY 1.025 (Normal) UA - KETONES Negative mg/dL (Normal) UA - BILIRUBIN Negative (Normal) UA - GLUCOSE Negative (Normal) :01 Metabolic Panel, Comments: PATIENT NOT FASTINGPERFORMED BY: LabCoBayshore Community HospitalOjgwnk0508 [facility] [id number] Information: [id number] Comprehensive (21727) ALT (SGPT) 52 [iU]/L (Abnormal) Range: 0-32 [...] cells when received.This may adversely affect serumChemistries. 30-Sgn-648875:30 Metabolic Panel, Comments: PATIENT NOT FASTINGPERFORMED BY: [facility] Ohkwsw3902 [facility] [id number] Information: [id number] Comprehensive (94103) ALT (SGPT) 9 [iU]/L (Normal) Range: 0-32 [...] (Prothrobim Time) Comments: PATIENT NOT FASTINGPERFORMED BY: Silk Qvpjsn3175 [facility] [id number] Information: [id number] (30332) Prothrombin Time 12.6 {sec} (Abnormal) Range: 9.1-12.0 INR 1.2 (Normal) Range: 0.8-1.2 Comments: Reference interval is for non-anticoagulated patients. . Suggested INR therapeutic range for Vitamin K anta gonist therapy: Standard Dose (moderate intensity therapeutic range): 2.0 - 3.0 Higher intensity therapeutic range 2.5 - 3.5 75-Fas-683369:50 Urinalysis, Office (70769) UA - LEUKOCYTE ESTERASE Trace (Normal) UA - NITRITE Negative (Normal) URINE UROBILINGN EVY TIMED Normal mg/dL (Normal) UA - PROTEIN 100 mg/dL (Normal) UA - PH 6.0 (Normal) UA - BLOOD Non Hemolyzed Trace (Normal) UA - SPECIFIC GRAVITY 1.030 (Abnormal) UA - KETONES Negative mg/dL (Normal) UA - BILIRUBIN Negative (Normal) UA - GLUCOSE Negative (Normal) 07-Bpv-877151:26 URINE CARMEN CULTURE (EVY Comments: PATIENT NOT FASTINGPERFORMED BY: SilkCarrie Tingley HospitalErbbmk1449 [facility] [id number] Information: SRC:[facility] [id number] COL COUNT) (55150) Result 1 NG36 (Normal) Comments: No growth in 36 - 48 hours. Urine Culture,Comprehensive Final report (Normal) 6-Onb-185554:08 Vitamin B-12 (cyanocobalamin) Comments: in six months (approximately); PATIENT WAS FASTINGPERFORMED BY: Silk Rnkybx0622 AnandGITRCritical access hospital [id number] (34343) Vitamin B12 433 pg/mL (Normal) Range: 211-946 7-Mtb-245573:08 CBC W/AUTO DIFF WBC Comments: in six months (approximately); PATIENT WAS FASTINGPERFORMED BY: Silk Waedkp1566 [facility] [id number] Information: [id number] (99379) Immature Grans (Abs) 0.0 {x10E3/uL} (Normal) Range: [...] 3.77-5.28 WBC 5.2 {x10E3/uL} (Normal) Range: 3.4-10.8 4-Vvf-673425:08 TSH (80755) Comments: in six months (approximately); PATIENT WAS FASTINGPERFORMED BY: CRISTA Silk Zzmkcc9189 [facility] [id number] TSH 0.802 {uIU/mL} (Normal) Range: 0.450-4.500 71-Ekz-121777:38 METABOLIC PANEL, Comments: in six months (approximately); PATIENT NOT FASTINGPERFORMED BY: CRISTA [employer]70 [facility] [id number] Information: [id number] COMPREHENSIVE (84725) ALT (SGPT) 10 [iU]/L (Normal) Range: 0-32 [...] Glucose, Serum 91 mg/dL (Normal) Range: 65-99 5-Sgp-922155:08 LIPID PANEL (16995) Comments: in six months (approximately); PATIENT WAS FASTINGPERFORMED BY: CB [facility] Snkdkx2816 [facility] [id number]; apt. 16 LDL/HDL Ratio 0.8 {ratio_units} (Normal) [...] Cholesterol, Total 205 mg/dL (Abnormal) Range: 100-199 5-Org-009953:08 PT (Prothrobim Time) (42496) Comments: today; PATIENT WAS FASTINGPERFORMED BY: LOANZ [facility] [id number]; inr not need addressed patient on [employer] Prothrombin Time 11.0 {sec} (Normal) Range: 9.1-12.0 INR 1.1 (Normal) Range: 0.8-1.2 Comments: Reference interval is for non-anticoagulated patients. . Suggested INR therapeutic range for Vitamin K anta gonist therapy: Standard Dose (moderate intensity therapeutic range): 2.0 - 3.0 Higher intensity therapeutic range 2.5 - 3.5 6-Hth-155892:08 POTASSIUM SERUM (52958) Comments: today; PATIENT WAS FASTINGPERFORMED BY: [employer] Xpsweo6984 [facility] [id number] Potassium, Serum 4.4 mmol/L (Normal) Range: 3.5-5.2 43-Rjo-52210:41 Comp. Metabolic Panel (14) Comments: PATIENT NOT FASTINGPERFORMED BY: Silk Tjtdxk4418 [facility] [id number] Information: [id number] DIFFICULT D RAW ALT (SGPT) 10 [iU]/L [...] Microscopic Examination Comments: PATIENT NOT FASTINGPERFORMED BY: CrowdSourceBayshore Community HospitalSsfnbl5360 [facility] [id number] Bacteria Few (Normal) Mucus Threads Present (Normal) Epithelial Cells (non renal) 0-10 {/hpf} (Normal) Range: 0 - 10 RBC 0-2 {/hpf} (Normal) Range: 0 - 2 WBC >30 {/hpf} (Abnormal) Range: 0 - 5 :41 Urinalysis, Complete Comments: PATIENT NOT FASTINGPERFORMED BY: CrowdSourceBayshore Community HospitalKxgfmh4240 [facility] [id number] Microscopic Examination See below: (Normal) Comments: Microscopic was indicated and was performed. Nitrite, Urine Negative (Normal) Urobilinogen,Semi-Qn 0.2 mg/dL (Normal) Range: 0.0-1.9 Bilirubin Negative (Normal) Occult Blood Negative (Normal) Ketones Negative (Normal) Glucose Negative (Normal) Protein Trace (Normal) WBC Esterase 2+ (Abnormal) Appearance Cloudy (Abnormal) Urine-Color Yellow (Normal) pH 6.0 (Normal) Range: 5.0-7.5 Specific [place] 1.015 (Normal) Range: 1.005-1.030 :49 Prothrombin Time (PT) Comments: PATIENT NOT FASTINGPERFORMED BY: [address] [id number] Information: [id number] Prothrombin Time 28.9 {sec} (Abnormal) Range: 9.1-12.0 INR 2.7 (Abnormal) Range: 0.8-1.2 Comments: Reference interval is for non-anticoagulated patients. . Suggested INR therapeutic range for Vitamin K anta gonist therapy: Standard Dose (moderate intensity therapeutic range): 2.0 - 3.0 Higher intensity therapeutic range 2.5 - 3.5 :49 Prothrombin Time (PT) Comments: PATIENT NOT FASTINGPERFORMED BY: [address] [id number] Information: [id number] Prothrombin Time 31.0 {sec} (Abnormal) Range: 9.1-12.0 INR 2.8 (Abnormal) Range: 0.8-1.2 Comments: Reference interval is for non-anticoagulated patients. . Suggested INR therapeutic range for Vitamin K anta gonist therapy: Standard Dose (moderate intensity therapeutic range): 2.0 - 3.0 Higher intensity therapeutic range 2.5 - 3.5 :28 Eosinophil, Urine (12916) Comments: PATIENT NOT FASTINGPERFORMED BY: [address] [id number] Information: [id number] Eosinophil, Urine No Eosinophils Seen % Comments: <5% few or none seenReceived at room temperature;interpret result with caution. (Normal) :28 Eosinophil, Urine (91944) Comments: PATIENT NOT FASTINGPERFORMED BY: [address] [id number] Information: [id number] Eosinophil, Urine No Eosinophils Seen % Comments: <5% few or none seenReceived at room temperature;interpret result with caution. (Normal) :54 Basic Metabolic Profile (BMP) Comments: Test performed at:[facility] Miumnvhseu1906 [place] [address] GAP 5 (Normal) Range: 5-15 CO2 27.0 [...] UR Comments: Test performed at:[facility] Edqcaxxyqb2309 [place] [address] MALB:CREAT 44.5 {mg/g_CRE} (Abnormal) MICROALBUMIN,UR 52.7 mg/L (Normal) UR CREAT 118.2 mg/dL (Normal) :54 Urinalysis, Routine (Dipstick) Comments: How was Urine Obtained? CLEAN CATCHTest performed at:[facility] Vancmksjho0879 [place] [address] LEUK ESTERASE 100 /ul (Abnormal) OCCULT BLOOD-UR 10 /ul (Abnormal) NITRITE UR Negative (Normal) UROBILI Normal mg/dL (Normal) PROT DIPSTX 15 mg/dL (Abnormal) pH UR 5.0 (Normal) Range: 5.0 - 8.0 SP.GR. DIPSTX 1.020 (Normal) Range: 1.002-1.030 KETONE UR Negative mg/dL (Normal) BILIRUBIN URINE Negative mg/dL (Normal) GLUCOSE, UR Normal mg/dL (Normal) CLARITY Sl. Cloudy (Normal) COLOR Yellow (Normal) 90-Gnh-002889:07 Eosinophil, Urine (13912) Comments: PATIENT NOT FASTINGPERFORMED BY: LabCoEmily [place] 0253370 [facility] [id number] Information: [id number] Eosinophil, Urine 5 % (Normal) Comments: <5% few or none seenReceived at room temperature;interpret result with caution. 55-Ooz-520742:10 MICROALBUMIN: CREATININE RATIO Comments: recheck in 6 weeks; PATIENT NOT FASTINGPERFORMED BY: SilkCarrie Tingley HospitalOcpwhf1343 [facility] [id number] (31191) AND (39851) Microalb/Creat Ratio 92.2 {mg/g_creat} (Abnormal) Range: 0.0-30.0 Microalbumin, Urine 180.9 ug/mL (Abnormal) Range: 0.0-17.0 Creatinine, Urine 196.2 mg/dL (Normal) Range: 15.0-278.0 :10 Metabolic Panel, Basic Comments: recheck in 6 weeks; PATIENT NOT FASTINGPERFORMED BY: Silk C-sam [facility] [id number] Information: [id number] (06745) Calcium, Serum 9.2 mg/dL (Normal) Range: 8.7-10.3 [...] Glucose, Serum 89 mg/dL (Normal) Range: 65-99 5-Dfr-022129:21 CALCIFIDIOL (46803) VIT D 25 Comments: PATIENT NOT FASTINGPERFORMED BY: SilkBayshore Community HospitalRmpgst4691 [facility] [id number] Vitamin D, 25-Hydroxy 35.5 ng/mL (Normal) Range: 30.0-100.0 Comments: Vitamin D deficiency has been defined by the [place] of[place]icine and an Endocrine Society practice guideline as alevel of serum 25-OH vitamin D less than 20 ng/mL (1,2).The Endocrine Society went on to further define vitamin Dinsufficiency as a level between 21 and 29 ng/mL (2).1. IOM ([place] of Medicine). 2010. Dietary reference intakes for calcium and D. [place]: The National Academies Press.2. Justin MF, Jazmyn FOSTER, Aniya CANO, et al. Evaluation, treatment, and prevention of vitamin D deficiency: an Endocrine Society clinical practice guideline. JCEM. 2010; 96(7):1911-30. :22 Total Protein,24 Hour Urine Comments: PATIENT NOT FASTINGPERFORMED BY: [employer]6370 [employer] [place] [id number] (45596) Prot,24hr calculated 196.5 {mg/24_hr} (Abnormal) Range: 30.0-150.0 Protein,Total,Urine 39.3 mg/dL (Abnormal) Range: 0.0-15.0 :22 CREATININE CLEARANCE Comments: PATIENT NOT FASTINGPERFORMED BY: [facility] [id number] Information: SRC:UR [id number] START- 4@630AM [facility] HOSPITALJOEL (84980) Creatinine Clearance 29 mL/min (Abnormal) Range: 88-128 [...] Comments: standing order; PATIENT NOT FASTINGPERFORMED BY: [employer]6370 [address] [facility] Hospitalblin [place] [id number] Information: [id number] (74047) Prothrombin Time 26.3 {sec} (Abnormal) Range: 9.1-12.0 INR 2.4 (Abnormal) Range: 0.8-1.2 Comments: Reference interval is for non-anticoagulated patients. . Suggested INR therapeutic range for Vitamin K anta gonist therapy: Standard Dose (moderate intensity therapeutic range): 2.0 - 3.0 Higher intensity therapeutic range 2.5 - 3.5 17-Oyw-537732:36 Request Problem Comments: PATIENT NOT FASTINGPERFORMED BY: [facility] Lrybap0444 Anand [facility] HospitalDublin [place] [id number] 41-Ote-114290:23 Vitamin B-12 (cyanocobalamin) Comments: PATIENT NOT FASTINGPERFORMED BY: [facility]Henry [facility]6370 Anand [facility]in [place] [id number] (66120) 22-Aek-515033:23 TSH (06090) Comments: PATIENT NOT FASTINGPERFORMED BY: [facility] Icojin9530 Anand [facility] HospitalDublin [place] [id number] 77-Nfa-369686:23 PT (Prothrobim Time) (67137) Comments: INR standing order do today also; PATIENT NOT FASTINGPERFORMED BY: [facility] Buwvlo8543 Anand RoadDublin [place] [id number] INR 1.8 (Abnormal) Range: 0.8-1.2 Comments: Reference interval is for non-anticoagulated patients. . Suggested INR therapeutic range for Vitamin K anta gonist therapy: Standard Dose (moderate intensity therapeutic range): 2.0 - 3.0 Higher intensity therapeutic range 2.5 - 3.5 Prothrombin Time 18.4 {sec} (Abnormal) Range: 9.1-12.0 34-Hea-765221:23 METABOLIC PANEL, COMPREHENSIVE Comments: PATIENT NOT FASTINGPERFORMED BY: [facility] Arxycd8235 Anand RoadDublin [place] [id number] (87647) ALT (SGPT) 13 [iU]/L (Normal) Range: 0-32 [...] Glucose, Serum 75 mg/dL (Normal) Range: 65-99 19-Sut-149492:23 LIPID PANEL (77445) Comments: PATIENT NOT FASTINGPERFORMED BY: [facility]6370 [facility] [id number] LDL/HDL Ratio 1.1 {ratio_units} (Normal) Range: 0.0-3.2 LDL Cholesterol Calc 92 mg/dL (Normal) Range: 0-99 HDL Cholesterol 82 mg/dL (Normal) Comments: According to ATP-III Guidelines, HDL-C >59 mg/dL is considered anegative risk factor for CHD. VLDL Cholesterol Alesha 38 mg/dL (Normal) Range: 5-40 Cholesterol, Total 212 mg/dL (Abnormal) Range: 100-199 Triglycerides 192 mg/dL (Abnormal) Range: 0-149 55-Rsa-590421:23 CBC WITH MANUAL DIFF Comments: PATIENT NOT FASTINGPERFORMED BY: LabCoBayshore Community HospitalDeszry9954 [facility] [id number] Information: [id number], [id number]: [id number] (86869) Immature Grans (Abs) 0.0 {x10E3/uL} (Normal) Range: [...] 3.77-5.28 WBC 6.5 {x10E3/uL} (Normal) Range: 3.4-10.8 22-Mzh-036908:23 Sed Rate Erythrocyte (12803) Comments: PATIENT NOT FASTINGPERFORMED BY: LabCoBayshore Community HospitalBvefop7392 [facility] [id number] Sedimentation Rate-Westergren 16 mm/h (Normal) Range: 0-40 03-Znn-218404:50 CBC with manual diff Comments: recheck in 4 weeks; PATIENT NOT FASTINGPERFORMED BY: CRISTA LabCoBayshore Community HospitalMkopqq6950 [facility] [id number] Information: ADD [id number] AND DRAW FEE 99 9636 (95520) Immature Grans (Abs) 0.0 {x10E3/uL} (Normal) Range: [...] 3.77-5.28 WBC 10.5 {x10E3/uL} (Normal) Range: 3.4-10.8 17-Dfu-041468:50 Sed Rate Erythrocyte (38696) Comments: re check in 4 weeks; PATIENT NOT FASTINGPERFORMED BY: LabCo Ndbarl3085 [facility] [id number] Sedimentation Rate-Westergren 39 mm/h (Normal) Range: 0-40 :48 PREALBUMIN (07461) Comments: PATIENT NOT FASTINGPERFORMED BY: [facility] Mbypbd8342 [facility] [id number] Prealbumin 23 mg/dL (Normal) Range: 20-40 :48 Magnesium (57318) Comments: PATIENT NOT FASTINGPERFORMED BY: [facility] Dugmpp0265 [facility] [id number] Magnesium, Serum 1.8 mg/dL (Normal) Range: 1.6-2.6 :48 Metabolic Panel, Comments: PATIENT NOT FASTINGPERFORMED BY: LabCo Vmqtqe4853 [facility] [id number] Information: [id number] Comprehensive (79754) ALT (SGPT) 12 [iU]/L (Normal) Range: 0-32 [...] Glucose, Serum 86 mg/dL (Normal) Range: 65-99 04-Itj-386018:15 CBC With Differential/Platelet Comments: PATIENT WAS FASTINGPERFORMED BY: CB [facility] Twdeyx4833 [facility] [id number] BY: BN [facility] Hcurdnrpil6531 [facility] [id number] Immature Grans (Abs) 0.0 {x10E3/uL} (Normal) Range: [...] 3.77-5.28 WBC 5.9 {x10E3/uL} (Normal) Range: 4.0-10.5 :15 Comp. Metabolic Panel Comments: PATIENT WAS FASTINGPERFORMED BY: CB [facility] Kinujd8180 [facility] [id number] BY: BN [facility] Jwlxamsekk1522 [facility] [id number] (14) ALT (SGPT) 7 [iU]/L (Normal) Range: [...] 16.5 umol/L Comments: PATIENT WAS FASTINGPERFORMED BY: [place]Em[place] 0253370 [facility] [id number] BY: [address] [id number] :15 Plasma (Abnormal) Range: 0.0-15.0 31-Doj-844122:15 Lipid Panel With LDL/HDL Comments: PATIENT WAS FASTINGPERFORMED BY: [place]Em[place] 0253370 [facility] [id number] BY: [address] [id number] Ratio LDL/HDL Ratio 0.7 {ratio_units} Range: 0.0-3.2 [...] nmol/L (Normal) Comments: PATIENT WAS FASTINGPERFORMED BY: Silk[address] [id number] BY: [address] [id number] 310:15 Serum Range: 73-376 Comments: The reference range for methylmalonic acid has been set at +3sd abovethe mean for healthy blood bank donors. In the clinical assessment ofpatients with megaloblastic anemias a cutoff of +3sd provides gr eaterspecificity in the diagnosis of the vitamin deficiency states,despite the sacrifice of some sensitivity. 06-Inj-227931:15 Prothrombin Time (PT) Comments: PATIENT WAS FASTINGPERFORMED BY: [place] 5664770 [facility] [id number] BY: [address] [id number] Prothrombin Time 20.5 {sec} (Abnormal) Range: 9.1-12.0 INR 2.0 (Abnormal) Range: 0.8-1.2 Comments: Reference interval is for non-anticoagulated patients. . Suggested INR therapeutic range for Vitamin K anta gonist therapy: Standard Dose (moderate intensity therapeutic range): 2.0 - 3.0 Higher intensity therapeutic range 2.5 - 3.5 TSH 0.706 {uIU/mL} Comments: PATIENT WAS FASTINGPERFORMED BY: LabJ[employer]J Solutions Nuvqhf6356 [facility] [id number] BY: Moreboats[address] [id number] :15 (Normal) Range: 0.450-4.500 :15 Vitamin B12 and Folate Comments: PATIENT WAS FASTINGPERFORMED BY: [employer] Udgqcx2863 [facility] [id number] BY: Silk[address] [id number] Folate (Folic Acid), >19.9 ng/mL (Normal) Comments: A serum folate concentration of less than 3.1 ng/mL isconsidered to represent clinical deficiency. Serum Vitamin B12 561 pg/mL (Normal) Range: 211-946 Vitamin D, 49.7 ng/mL (Normal) Comments: PATIENT WAS FASTINGPERFORMED BY: [employer]6370 [facility] [id number] BY: Moreboats[address] [id number] :15 25-Hydroxy Range: 30.0-100.0 Comments: Vitamin D deficiency has been defined by the [place] of[place]icine and an Endocrine Society practice guideline as alevel of serum 25-OH vitamin D less than 20 ng/mL (1,2).The Endocrine Society went on to further define vitamin Dinsufficiency as a level between 21 and 29 ng/mL (2).1. IOM ([place] of [employer]). 2010. Dietary reference intakes for calcium and D. [place]: The National Academies Press.2. Justin MF, Jazmyn FOSTER, Aniya CANO, et al. Evaluation, treatment, and prevention of vitamin D deficiency: an Endocrine Society clinical practice guideline. JCEM. 2010; 96(7):1911-30. 35-Xjw-080153:20 PT (Prothrobim Time) (22103) Comments: standing order; PATIENT NOT FASTINGPERFORMED BY: [employer]ot70 [facility] [id number] Prothrombin Time 28.6 {sec} (Abnormal) Range: 9.1-12.0 INR 2.8 (Abnormal) Range: 0.8-1.2 Comments: Reference interval is for non-anticoagulated patients. . Suggested INR therapeutic range for Vitamin K anta gonist therapy: Standard Dose (moderate intensity therapeutic range): 2.0 - 3.0 Higher intensity therapeutic range 2.5 - 3.5 :30 CBC With Differential/Platelet Comments: PERFORMED BY: [employer] [facility] [id number] BY: Silk[address] [id number] Information: PER 03-07-12 RANDOM U Immature Grans (Abs) 0.0 [...] 3.77-5.28 WBC 9.1 {x10E3/uL} (Normal) Range: 4.0-10.5 17-Vza-132310:30 Chromium, Urine Comments: PERFORMED BY: Silk[address] [id number] BY: [address] [id number] Chromium/Creat Ratio 0.2 {ug/g_creat} Range: 0.0-4.9 (Normal) Comments: Environmental Exposure: 0.0 - 4.9 Occupational Exposure: RAEGAN 25.0 Chromium, Urine 0.3 ug/L (Normal) Range: 0.1-2.0 Comments: Detection Limit = 0.10 Ferritin, Serum 64 ng/mL (Normal) Comments: PERFORMED BY: Silk[address] [id number] BY: [address] [id number] 214:30 Range: 13-150 Homocyst(e)ine, Plasma 32.2 umol/L Comments: PERFORMED BY: [facility] OhioJ&J Solutions[address] [id number] BY: [address] [id number] 214:30 (Abnormal) Range: 0.0-15.0 Iron, Serum 38 ug/dL (Normal) Comments: PERFORMED BY: [address] RoadDublin [place] [id number] BY: [address] [id number] 214:30 Range: 35-155 Magnesium, Serum 1.8 mg/dL (Normal) Comments: PERFORMED BY: CRISTA Silk Udtrsm8813 Anand RoadDublin [place] [id number] BY: [address] [id number] 214:30 Range: 1.6-2.6 Methylmalonic Acid, 525 nmol/L (Abnormal) Comments: PERFORMED BY: CRISTA Silk Ykunnm8261 Anand [facility] Hospitalbl[facility] [place] [id number] BY: [address] [id number] 214:30 Serum Range: 73-376 Comments: Verified by repeat analysisThe reference range for methylmalonic acid has been set at +3sd abovethe mean for healthy blood bank donors. In the clinical assessment ofpatients with megaloblastic anemi as a cutoff of +3sd provides greaterspecificity in the diagnosis of the vitamin deficiency states,despite the sacrifice of some sensitivity. Phosphorus, Serum 3.6 mg/dL (Normal) Comments: PERFORMED BY: CRISTA Silk Rnrplx4014 Anand RoadDublin [place] [id number] BY: [address] [id number] 214:30 Range: 2.5-4.5 PTH, Intact 32 pg/mL (Normal) Comments: PERFORMED BY: [facility]boatsS[facility] Hospital Eltrwy6109 Anand [facility] HospitalDublin [place] [id number] BY: [address] [id number] 214:30 Range: 15-65 Sedimentation 21 mm/h (Normal) Comments: PERFORMED BY: [facility] Vvqcgi3135 Anand RoadDublin [place] [id number] BY: [address] [id number] 214:30 Rate-Westergren Range: 0-40 Vitamin A, Serum 88 ug/dL (Abnormal) Comments: PERFORMED BY: [place] 5664770 [facility] [id number] BY: [address] [id number] 214:30 Range: 18-77 :30 Vitamin B12 and Folate Comments: PERFORMED BY: [place] 5664770 [facility] [id number] BY: [address] [id number] Folate (Folic Acid), >19.9 ng/mL (Normal) Comments: A serum folate concentration of less than 3.1 ng/mL isconsidered to represent clinical deficiency. Serum Vitamin B12 326 pg/mL (Normal) Range: 211-946 Vitamin D, 21.0 ng/mL Comments: PERFORMED BY: MoreboatsJason [place] 9711670 [facility] [id number] BY: [address] [id number] :30 25-Hydroxy (Abnormal) Range: 30.0-100.0 Comments: Vitamin D deficiency has been defined by the [place] of[place]icine and an Endocrine Society practice guideline as alevel of serum 25-OH vitamin D less than 20 ng/mL (1,2).The Endocrine Society went on to further define vitamin Dinsufficiency as a level between 21 and 29 ng/mL (2).1. IOM ([place] of Medicine). 2010. Dietary reference intakes for calcium and D. [place]: The National Academies Press.2. Justin MF, Jazmyn FOSTER, Aniya CANO, et al. Evaluation, treatment, and prevention of vitamin D deficiency: an Endocrine Society clinical practice guideline. JCEM. 2010; 96(7):1911-30. :30 Zinc, Urine Comments: PERFORMED BY: [address] [id number] BY: LabDavid Ville 148817 [facility] [id number] Zinc/Creat. Ratio 497 {ug/g_creat} (Normal) Range: 100-900 Creatinine(Irrigation Equipment Installer),U 1.95 g/L (Normal) Range: 0.30-3.00 Comments: Detection Limit = 0.10 Zinc, Urine 970 ug/L (Normal) Comments: Detection Limit = 10 79-Bqm-21623:19 ABDOMEN/PELVIS WITH CONTRAST Radiology Report See Note [...] Sarkar D.O.December 05, 2011 at 7:36:04 PM [id number] Signed IF/IF If you are the referring physician and would like to consult with theradiologist who provided this interpretation, please contact Fabian Sarkar D.O.at [phone]. If this radiologist is unavailable, you will be directedto another radiologist to assist. If you are a patient with a question regarding this report, pleasecontactyour referring physician directly. Professional Interpretation Provided By: [employer], Phone , Thes e documents contain legally [...] re turn or destructionofthese documents. Dictated on 12/05/11 0804 by Flaquita Sarkar DOranscribed on 12/05/111941 by ITS IMPORTSign by Fabian Sarkar DO on 12/05/111942 Sign by: Fabian Sarkar DO 5-Ubx-299490:10 Metabolic Panel, Comprehensive Comments: copy to Dr. shukla; PATIENT NOT FASTINGPERFORMED BY: [facility]6370 [facility] [id number] (19277) ALT (SGPT) 16 [iU]/L (Normal) Range: 0-40 [...] Glucose, Serum 85 mg/dL (Normal) Range: 65-99 6-Fpj-363190:10 CBC, Platelets & Auto Diff Comments: PATIENT NOT FASTINGPERFORMED BY: [facility] Mvmmbl2271 [facility] [id number] Information: [id number] (30654) Immature Grans (Abs) 0.0 {x10E3/uL} (Normal) Range: [...] 3.77-5.28 WBC 8.1 {x10E3/uL} (Normal) Range: 4.0-10.5 6-Jmq-233866:10 Sed Rate Erythrocyte (26024) Comments: PATIENT NOT FASTINGPERFORMED BY: [employer] [facility] Kdjshi[address] [facility] [id number] Sedimentation Rate-Westergren 53 mm/h (Abnormal) Range: 0-40 74-Amx-428212:14 Basic Metabolic Panel (8) Comments: PERFORMED BY: [employer] [facility] Orcwhy8677 [facility] [id number] Calcium, Serum 9.9 mg/dL (Normal) Range: 8.6-10.2 [...] Protein Electro, Random Urine Comments: PERFORMED BY: LOANZ [facility] [id number] Please note: SPRCS (Normal) Comments: Protein electrophoresis scan will follow via computer, mail, orcourier delivery. Alfes-7-Kapjuqin, U 8.9 % (Normal) Beta Globulin, U 25.6 % (Normal) Gamma Globulin, U 26.9 % (Normal) M-Navarro, % Not Observed % (Normal) Albumin, U 36.2 % (Normal) Udraj-1-Whrlmvvl, U 2.5 % (Normal) Protein,Total,Urine 40.0 mg/dL (Abnormal) Range: 0.0-15.0 :14 Protein Electro.,S Comments: PERFORMED BY: [employer]70 [facility] [id number] Please note: SPRCS (Normal) Comments: Protein electrophoresis scan will follow via computer, mail, orcourier delivery. 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.Performed At: [facility]6370 [place], [place] [id number] RIBA RESULT <TEST NOT PERFORMED> (Normal) :10 [...] 0.2 EU/dl (Normal) Range: 0.2 - 1.0 28-Nwi-368319:47 TSH < 0.01 {uIU/mL} Range: 0.34-4.82 (Abnormal) [...] Indication: Low back pain Planned Observations CALCIFIDIOL (42105) VIT D 25Indication: Vitamin D deficiency On: 97-Jof-225578:01 Request Renal function Panel (40675)Indication: Chronic kidney disease, stage III (moderate) On: 60-Qgd-960782:00 Request TSH (66650)Indication: Hypothyroidism On: 62-Sst-445018:59 Request URINALYSIS (73218)Indication: Chronic kidney disease, stage III (moderate) On: 97-Wlv-548139:36 Request MICROALBUMIN: CREATININE RATIO (19463) AND (19505)Indication: Chronic kidney disease, stage III (moderate) On: 67-Fjr-320851:35 Request METABOLIC PANEL, COMPREHENSIVE (01766)Indication: Chronic kidney disease, stage III (moderate) On: 1-Xvf-718239:59 Request CALCIFIDIOL (47905) VIT D 25Indication: Vitamin D deficiency On: 1-Qci-488384:59 Request CARMEN CULTURE-OTHER (91883)Indication: Vaginal discharge On: 75-Wjc-200134:46 Request Comments: vagina BACT CULTURE ANY-ANAEROBIC (88487)Indication: Vaginal discharge On: 76-Elf-399272:13 Request Comments: of vaginal fluid PHOSPHORUS (67941)Indication: Chronic kidney disease, stage III (moderate) On: 33-Uby-326471:26 Request Comments: do before November office visit PHOSPHORUS (78623)Indication: Malnutrition On: 23-Aug-20179:21 Request Phosphorus (20664)Indication: Malnutrition On: 62-Fel-495404:42 Request Magnesium (19520)Indication: Malnutrition On: 37-Jar-439855:42 Request C-Reactive Protein (31978)Indication: Osteomyelitis of pelvic region On: 17-Dhf-825714:04 Request METABOLIC PANEL, COMPREHENSIVE (88411)Indication: Benign essential HTN On: 80-Bje-436066:52 Request URIC ACID BLOOD (37597)Indication: Abnormal blood chemistry On: 28-Nlg-699367:52 Request Iron (38385)Indication: Anemia On: 22-Pci-862862:44 Request Iron Binding Capacity (TIBC) (53840)Indication: Anemia, chronic disease On: :53 Request Comments: in 6 weeks Iron (14911)Indication: Anemia, chronic disease On: :53 Request Comments: in 6 weeks Metabolic Panel, Comprehensive (19429)Indication: Benign essential HTN On: :52 Request Comments: now and in 6 weeks T4, FREE (THYROXINE) (24262)Indication: Hypothyroidism On: :52 Request Comments: now and in 6 weeks TSH (56431)Indication: Hypothyroidism On: :52 Request Comments: now and in 6 weeks CBC, Platelets & Auto Diff (70317)Indication: Anemia, chronic disease On: :51 Request Comments: now and in 6 weeks Total Protein,24 Hour Urine (24578)Indication: Chronic kidney disease, stage III (moderate) On: :50 Request CREATININE CLEARANCE (98320)Indication: Chronic kidney disease, stage III (moderate) On: :49 Request FECAL OCCULT- Tubes sent home (05621)Indication: Anemia, chronic disease On: :48 Request IRON ([id number])Indication: Anemia, chronic disease On: :48 Request Urine Protein Electrophoresis (UPEP) (29904)Indication: Chronic kidney disease, stage III (moderate) On: 57-Shf-126632:42 Request T4, FREE (THYROXINE) (54754)Indication: Hypothyroidism On: :52 Request T3, FREE (TRIDOTHYRONINE) (76866)Indication: Hypothyroidism On: :52 Request TSH (THYROID STIMULATING HORMONE) (40329)Indication: Hypothyroidism On: :52 Request FERRITIN (63326)Indication: Anemia, chronic disease On: :51 Request IRON BINDING CAPACITY (TIBC) (54210)Indication: Anemia, chronic disease On: :51 Request IRON & TOTAL IRON BINDING CAPACITY (59178)Indication: Anemia, chronic disease On: :51 Request METABOLIC PANEL, COMPREHENSIVE (17967)Indication: Thrombocytosis On: 0-Zrn-294507:50 Request Iron (99419)Indication: Anemia On: :54 Request T3, FREE (TRIDOTHYRONINE) (25293)Indication: Hypothyroidism On: :24 Request TSH (66129)Indication: Hypothyroidism On: :24 Request T4, FREE (THYROXINE) (16603)Indication: Hypothyroidism On: : Request ESR-F (SED RATE ERYTHROCYTE - FEMALE) (99711)Indication: Osteomyelitis of pelvic region On: :59 Request Comments: 11/11/15 C-REACT PROT HIGH SENS(hsCRP) (36940)Indication: Osteomyelitis of pelvic region On: :59 Request Comments: 11/11/15 CBC, PLATELETS & AUT DIFF (68526)Indication: Osteomyelitis of pelvic region On: :58 Request Comments: 11/11/15 LIPID PANEL (14768)Indication: Osteoporosis On: :58 Request Comments: 11/11/15 METABOLIC PANEL, COMPREHENSIVE (71016)Indication: Osteomyelitis of pelvic region On: :58 Request Comments: 11/11/15 MICROALBUMIN: CREATININE RATIO (80027) AND (14952)Indication: Osteoporosis On: :58 Request Comments: 11/11/15 VITAMIN B12 AND FOLATES (16310)Indication: Osteoporosis On: :58 Request Comments: 11/11/15 CALCIFEDIOL (12796)Indication: Osteoporosis On: :58 Request Comments: 11/11/15 LIPASE (95029)Indication: Pancreatitis On: :04 Request Comments: 6 week METABOLIC PANEL, COMPREHENSIVE (59900)Indication: Liver function abnormality On: :01 Request Comments: 6 weeks T3, FREE (TRIDOTHYRONINE) (74231)Indication: Hypothyroidism On: :00 Request Comments: 6 weeks T4, FREE (THYROXINE) (05073)Indication: Hypothyroidism On: : Request Comments: 6 weeks TSH (THYROID STIMULATING HORMONE) (40025)Indication: Hypothyroidism On: 75-Ftr-804164:00 Request Comments: 6 weeks CBC, PLATELETS & AUT DIFF (82494)Indication: Thrombocytosis On: 26-Ttr-936207:00 Request Comments: 6 weeks PT (Prothrobim Time) (07092)Indication: History of DVT (deep vein thrombosis) On: 28-Jun-2015 Request PT (Prothrobim Time) ([id number])Indication: History of DVT (deep vein thrombosis) On: 29-May-2015 Request PT (Prothrobim Time) ([id number])Indication: History of DVT (deep vein thrombosis) On: 29-Apr-2015 Request PT (Prothrobim Time) ([id number])Indication: History of DVT (deep vein thrombosis) On: 30-Mar-2015 Request Metabolic Panel, Basic (74950)Indication: Abnormal blood chemistry On: 67-Tlv-144205:47 Request PT (Prothrobim Time) ([id number])Indication: History of DVT (deep vein thrombosis) On: 28-Feb-2015 Request PT (Prothrobim Time) ([id number])Indication: History of DVT (deep vein thrombosis) On: 29-Jan-2015 Request PT (Prothrobim Time) ([id number])Indication: History of DVT (deep vein thrombosis) On: 30-Dec-2014 Request PT (Prothrobim Time) ([id number])Indication: History of DVT (deep vein thrombosis) On: 30-Nov-2014 Request Urinalysis, Office (31088)Indication: Abnormal urine On: 67-Wzs-812805:18 Request PT (Prothrobim Time) ([id number])Indication: History of DVT (deep vein thrombosis) On: 01-Oct-2014 Request PT (Prothrobim Time) ([id number])Indication: History of DVT (deep vein thrombosis) On: 20-Vll-413101:46 Request URINALYSIS, W/ MICRO ([id number])Indication: Chronic kidney disease, stage III (moderate) On: 62-Knf-449179:50 Request METABOLIC PANEL, COMPREHENSIVE (71282)Indication: Chronic kidney disease, stage III (moderate) On: 20-Oil-426555:50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
--- OUTSIDE RECORDS SUMMARY | 2018-03-25 11:29 | XMS RPT_ITS | Continuity of Care Document ---
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 Range: 2.0-4.4 :58 T4, FREE (THYROXINE) (24692) Comments: PATIENT NOT FASTINGPERFORMED BY: [facility] Czjubq6686 [facility] [id number] T4,Free(Direct) 2.53 ng/dL (Abnormal) Range: 0.82-1.77 :58 IRON BINDING CAPACITY (TIBC) Comments: PATIENT NOT FASTINGPERFORMED BY: Induction ManagerCo Exvqat4791 [facility] [id number] (94346) Iron Saturation 4 % (Abnormal) Range: 15-55 Iron, Serum 18 ug/dL (Abnormal) Range: 27-139 UIBC 388 ug/dL (Abnormal) Range: 118-369 Iron Bind.Cap.(TIBC) 406 ug/dL (Normal) Range: 250-450 :58 FERRITIN (85995) Comments: PATIENT NOT FASTINGPERFORMED BY: [facility]CoJeff[facility]Tpmzsl2815 [facility] [id number] Ferritin, Serum 24 ng/mL (Normal) Range: 15-150 :58 Sed Rate Erythrocyte (26782) Comments: PATIENT NOT FASTINGPERFORMED BY: Induction ManagerCoJefferson [facility])Dlepan8035 [facility] [id number] Sedimentation Rate-Westergren 73 mm/h (Abnormal) Range: 0-40 :58 Serum Protein Electrophoresis Comments: PATIENT NOT FASTINGPERFORMED BY: GTX MessagingJefferson Washington [facility])Vxnmom2176 [facility] [id number] (SPEP) (33794) Please note: SPRCS (Normal) Comments: Protein electrophoresis scan will follow via computer, mail, orcourier delivery. A/G Ratio 0.7 (Normal) Range: 0.7-1.7 Globulin, Total 4.2 g/dL (Abnormal) Range: 2.2-3.9 M-Navarro Not Observed g/dL (Normal) Gamma Globulin 1.2 g/dL (Normal) Range: 0.4-1.8 Beta Globulin 1.4 g/dL (Abnormal) Range: 0.7-1.3 Idkel-0-Sfhgldys 1.1 g/dL (Abnormal) Range: 0.4-1.0 Npwhm-1-Fsikzuzc 0.4 g/dL (Normal) Range: 0.0-0.4 Albumin 3.1 g/dL (Normal) Range: 2.9-4.4 :58 MAGNESIUM (19823) Comments: PATIENT NOT FASTINGPERFORMED BY: CB [facility] Jcppwj1896 Anand RoadDublin [place] [id number] Magnesium, Serum 1.8 mg/dL (Normal) Range: 1.6-2.3 :58 PHOSPHORUS (78756) Comments: PATIENT NOT FASTINGPERFORMED BY: CB [facility] Bhtati3495 Anand RoadDublin [place] [id number] Phosphorus, Serum 4.7 mg/dL (Abnormal) Range: 2.5-4.5 :58 CALCIFEDIOL (46256) Comments: PATIENT NOT FASTINGPERFORMED BY: CB [facility] Bkwyfl1609 Anand RoadDublin [place] [id number] Vitamin D, 25-Hydroxy 34.5 ng/mL (Normal) Range: 30.0-100.0 Comments: Vitamin D deficiency has been defined by the [place] of[facility]cine and an Endocrine Society practice guideline as alevel of serum 25-OH vitamin D less than 20 ng/mL (1,2).The Endocrine Society went on to further define vitamin Dinsufficiency as a level between 21 and 29 ng/mL (2).1. IOM ([place] of Medicine). 2010. Dietary reference intakes for calcium and D. [place]: The National Academies Press.2. Justin MF, Jazmyn NC, Aniya CANO, et al. Evaluation, treatment, and prevention of vitamin D deficiency: an Endocrine Society clinical practice guideline. JCEM. 2010; 96(7):1911-30. :58 PARATHORMONE (24939) Comments: PATIENT NOT FASTINGPERFORMED BY: CB [facility] Xiiqxc6416 Anand RoadDublin [place] [id number] PTH, Intact 41 pg/mL (Normal) Range: 15-65 :58 METABOLIC PANEL, Comments: PATIENT NOT FASTINGPERFORMED BY: CB [facility] Wgkqkr9271 Anand RoadDublin [place] [id number] Information: DIFFICULT DRAW COMPREHENSIVE (83988) ALT (SGPT) 21 [iU]/L (Normal) Range: 0-32 [...] Glucose, Serum 63 mg/dL (Abnormal) Range: 65-99 0-Xop-285753:04 Vitamin B-12 (cyanocobalamin) Comments: PATIENT WAS FASTINGPERFORMED BY: GTX Messaging Fttluafgxi[address] [id number] BY: GTX MessagingTuba City Regional Health Care CorporationKdzfvv6264 [facility] [id number] (20051) Vitamin B12 >2000 pg/mL (Abnormal) Range: 211-946 3-Hmk-304092:04 CBC WITH MANUAL DIFF Comments: PATIENT WAS FASTINGPERFORMED BY: GTX Messaging[address] [id number] BY: GTX MessagingTuba City Regional Health Care CorporationEkhczl6138 [facility] [id number] (41082) Immature Grans (Abs) 0.0 {x10E3/uL} (Normal) Range: [...] 3.77-5.28 WBC 7.6 {x10E3/uL} (Normal) Range: 3.4-10.8 1-Mff-365984:04 LIPOPROTEIN, BLD, BY NMR Comments: PATIENT WAS FASTINGPERFORMED BY: BN [facility] [address] [id number] BY: CB [facility] Zhocid8774 [facility] [id number] (58487) LP-IR Score 33 (Normal) Comments: INSULIN RESISTANCE MARKER <--Insulin Sensitive Insulin Resistant--> Percentile in Reference PopulationInsulin Resistance ScoreLP-IR Score Low 25th 50th 75th High <27 27 45 63 >63LP-IR Score is inaccurate if patient is non-fasting. .The LP-IR score is a laboratory developed i anurag that has beenassociated with insulin resistance and [...] 1600 - 2000 Very High > 2000 91-Skf-957098:36 [facility] (64227) Comments: PATIENT WAS FASTINGPERFORMED BY: DentLightThe [facility]er [facility] [id number] Please note: SPRCS (Normal) Comments: Protein electrophoresis scan will follow via computer, mail, orcourier delivery. M-Navarro, % Not Observed % (Normal) Gamma Globulin, U 26.0 % (Normal) Beta Globulin, U 31.1 % (Normal) Fvsaq-0-Vwhoraha, U 9.8 % (Normal) Yklag-3-Cfgehxma, U 2.5 % (Normal) Albumin, U 30.7 % (Normal) Protein,Total,Urine 35.3 mg/dL (Normal) 09-Ofv-573508:36 SPEP (77978) Comments: PATIENT WAS FASTINGPERFORMED BY: [employer] Anand DICOM GridThe Outer Banks Hospital [id number] Please note: SPRCS (Normal) Comments: Protein electrophoresis scan will follow via computer, mail, orcourier delivery. A/G Ratio 0.7 (Normal) Range: 0.7-1.7 Globulin, Total 4.2 g/dL (Abnormal) Range: 2.2-3.9 M-Navarro Not Observed g/dL (Normal) Gamma Globulin 1.0 g/dL (Normal) Range: 0.4-1.8 Beta Globulin 1.5 g/dL (Abnormal) Range: 0.7-1.3 Wjshx-1-Ceglluck 1.3 g/dL (Abnormal) Range: 0.4-1.0 Txdrd-9-Hqsbnmoz 0.4 g/dL (Normal) Range: 0.0-0.4 Albumin 3.0 g/dL (Normal) Range: 2.9-4.4 15-Qky-581583:36 Lipid Panel (65771) Comments: PATIENT WAS FASTINGPERFORMED BY: Supertec70 [facility] [id number] LDL/HDL Ratio 0.9 {ratio_units} (Normal) Range: 0.0-3.2 [...] Cholesterol, Total 153 mg/dL (Normal) Range: 100-199 20-Yko-746604:36 Metabolic Panel, Comprehensive Comments: PATIENT WAS FASTINGPERFORMED BY: LabCoJefferson [facility])Ihtamx9261 [facility] [id number] (37941) ALT (SGPT) 18 [iU]/L (Normal) Range: 0-32 [...] MANUAL DIFF Comments: PATIENT WAS FASTINGPERFORMED BY: LabCoJefferson [facility])Fopkhu12[address] [place] [address] [id number] Information: DIFFICULT DRAW (48766) Immature Grans (Abs) 0.0 {x10E3/uL} (Normal) Range: [...] (LACTATE DEHYDROGENASE) Comments: PATIENT WAS FASTINGPERFORMED BY: LabCoJefferson [facility])Tdgzvh7350 [facility] [id number] (62441) LDH 161 [iU]/L (Normal) Range: 119-226 72-Byi-475820:36 Vitamin B-12 (cyanocobalamin) Comments: PATIENT WAS FASTINGPERFORMED BY: GTX MessagingJefferson Washington [facility])Onygqq6804 [facility] [id number] (84660) Vitamin B12 717 pg/mL (Normal) Range: 211-946 78-Kvd-573947:36 Iron Binding Capacity (TIBC) Comments: PATIENT WAS FASTINGPERFORMED BY: Induction ManagerSurgeons Choice Medical Center6370 [facility] [id number] (03697) Iron Saturation 7 % (Abnormal) Range: 15-55 Iron, Serum 29 ug/dL (Normal) Range: 27-139 UIBC 386 ug/dL (Abnormal) Range: 118-369 Iron Bind.Cap.(TIBC) 415 ug/dL (Normal) Range: 250-450 :36 Ferritin (09539) Comments: PATIENT WAS FASTINGPERFORMED BY: Induction ManagerSurgeons Choice Medical Center6370 [facility] [id number] Ferritin, Serum 43 ng/mL (Normal) Range: 15-150 :36 Folic Acid Serum (44127) Comments: PATIENT WAS FASTINGPERFORMED BY: GTX MessagingJefferson Washington [facility])Tiydew2039 [facility] [id number] Folate (Folic Acid), Serum 11.3 ng/mL (Normal) Comments: A serum folate concentration of less than 3.1 ng/mL isconsidered to represent clinical deficiency. 57-Yft-370651:36 TSH (84700) Comments: PATIENT WAS FASTINGPERFORMED BY: Induction ManagerSurgeons Choice Medical Center6370 [facility] [id number] TSH 0.530 {uIU/mL} (Normal) Range: 0.450-4.500 29-Dkj-634569:36 T4, FREE (THYROXINE) (82598) Comments: PATIENT WAS FASTINGPERFORMED BY: Induction ManagerSurgeons Choice Medical Center6370 [facility] [id number] T4,Free(Direct) 1.90 ng/dL (Abnormal) Range: 0.82-1.77 83-Tue-989242:36 T3, FREE (TRIDOTHYRONINE) (09290) Comments: PATIENT WAS FASTINGPERFORMED BY: LabCo Rzvugm4848 [facility] [id number] Triiodothyronine,Free,Serum 1.9 pg/mL (Abnormal) Range: 2.0-4.4 :23 CBC W/Diff, Automated Comments: [facility] [address] [place], [address] Absolute Lymph 2.62 {X10_3/ul} (Normal) Range: 0.83-4.51 [...] Range: 4.4-11.0 :23 Comprehensive Metabolic Profil Comments: [facility] Vkocageigc[address] [place], [place], [phone] GAP 7 (Normal) Range: 5-15 CO2 27.0 [...] (Normal) Range: 70-110 :23 Free T3 Comments: [facility] [address] [place], [place], [phone] FREE T3 1.3 pg/mL (Abnormal) Range: 2.18-3.98 :23 Lipase Comments: [address] [place], [place], [address] LIPASE 130 U/L (Normal) Range: 73-393 :23 T4 Free Direct Comments: [address] [place], [place], [address] T4 FREE DIRECT 1.45 ng/dL (Normal) Range: 0.76-1.46 :23 Thyroid Stim Hormone (TSH) Comments: [facility] Eqwstjavbw3623 [address] [place], [id number] TSH 17.10 {uIU/mL} (Abnormal) Range: 0.358-3.74 :22 CRP Comments: Order Date: 11/22/15Order Date: 11/22/15[facility] [address]qut[address] [place], [phone] C-REACTIVE PROT 11.80 mg/L (Abnormal) Range: 0.0-3.0 Comments: C-Reactive Protein (CRP) provides useful information for thediagnosis, therapy and monitoring of inflammatory processesand associated diseases. For the evaluation of Relative Riskfor Cardiovascular Dise ase, a High Sensitivity CRP (HSCRP)should be ordered. :22 Erythrocyte Sed Rate Comments: Order Date: 11/22/15Interface Comments: Reason:Order Date: 11/22/15[facility] Ezwnjioufy1201 [place], [id number] SED RATE 83 mm/h (Abnormal) Range: 0-30 2-Tdb-648354:29 Culture, Wound Comments: [facility] Yvkbiaqgpi[address] [place], [address] CUW See Note (Normal) Comments: Order Date: 11/22/15 Gram StainGram Stain 1+ Red Cell Stroma Rare Gram positive cocci Wound CulturePossible skin contamination, further Identification and sensitivity will be performed only by physi jamshid's request. ORGANISM 1: Coag Negative StaphAmount Growth Rare :11 CBC W/Diff, Automated Comments: [facility] Vhvnvwcovs9280 [place], [id number] Absolute Lymph 2.98 {X10_3/ul} (Normal) Range: 0.83-4.51 [...] 4.2-5.4 WBC 6.9 K/mm3 (Normal) Range: 4.4-11.0 73-Lgz-31249:11 Comprehensive Metabolic Profil Comments: Is Patient Taking Vitamins or Folic Acid Supplements? [facility] Jkczlcgeqt7232 [facility] [place], [place], [address] GAP 7 (Normal) Range: 5-15 CO2 28.0 [...] Patient Taking Vitamins or Folic Acid Supplements? [facility] Pktgdfoskj[address] [facility] [place], [address] CRP HIGH SENS 1.79 mg/L (Normal) Comments: Low Relative Risk of CVD <1.0 mg/L Average Relative Risk of CVD 1.0 - 3.0 mg/L High Relative Risk of CVD >3.0 mg/L :11 Erythrocyte Sed Rate Comments: [facility] Wy[address] [place], [address] SED RATE 37 mm/h (Abnormal) Range: 0-30 :11 Folates, (Folic Acid) Comments: Is Patient Taking Vitamins or Folic Acid Supplements? [facility] T[address]agtrovcr[address] [place], [address] FOLATES 30.20 ng/mL (Abnormal) Range: 3.1-17.5 :11 Lipid Profile Comments: Is Patient Taking Vitamins or Folic Acid Supplements? [facility] Uoetbtvvyc39[address] [place], [address] VLDL 16 mg/dL (Normal) Range: 5-40 LDL [...] :11 Vitamin B12 694 pg/mL (Normal) Comments: [facility] Ctndcgrugs6[address] [place], [address] Range: 211-911 :11 Vitamin D,25 Hydroxy Comments: [facility] Yzdbamcxsk280[address] [place], [address] Vitamin D 25-OH > 150.0 ng/mL (Normal) [...] is nointerference with Vitamin D test results. 42-Rbm-41120:01 Protein+Creatinine Ratio,Urine Comments: [facility] Tyzfdchrfl[address] [place], [phone] PROT:CRE RATIO 276 {mg/g_CRE} (Abnormal) Range: 0-200 PROTEIN,UR.RAN. 60.7 mg/dL (Abnormal) UR CREAT 220.00 mg/dL (Normal) :01 Renal Profile Comments: [facility] Usywyguzbr[address] [place], [id number] CO2 30.0 mmol/L (Normal) Range: 21.0-32.0 CL [...] 7-18 GLU 97 mg/dL (Normal) Range: 70-110 5-Ylr-888910:20 Urinalysis, Complete Comments: Order Date: 09/23/15Has pt arrived? YHow was Urine Obtained? [facility] W[facility]WBu[facility] Haqdfkktfx[address] [place], [phone] YEAST-URINE 1+ {/hpf} (Normal) MUCUS, URINE 0 [...] CLARITY Sl. Cloudy (Normal) COLOR Yellow (Normal) 2-Wmm-721265:30 CBC W/Diff, Automated Comments: [facility] Ssmwmrsjlv7261 [place], [address] Absolute Lymph 2.14 {X10_3/ul} (Normal) Range: 0.83-4.51 [...] 4.2-5.4 WBC 9.9 K/mm3 (Normal) Range: 4.4-11.0 3-Nyk-541623:30 Comprehensive Metabolic Profil Comments: [facility] Sugwtrfmqb[address] [place], [place], [address] GAP 9 (Normal) Range: 5-15 CO2 20.0 [...] 7-18 GLU 107 mg/dL (Normal) Range: 70-110 4-Nnm-374238:30 Lipase Comments: [facility] [address]qpnism[address], [address] LIPASE 542 U/L (Abnormal) Range: 73-393 :45 Vitamin B-12 (cyanocobalamin) Comments: PATIENT WAS FASTINGPERFORMED BY: [facility]6[address] [facility] [id number] (08011) Vitamin B12 998 pg/mL (Abnormal) Range: 211-946 :45 METABOLIC PANEL, COMPREHENSIVE Comments: PATIENT WAS FASTINGPERFORMED BY: LabSurgeons [facility] Center6370 [facility] [id number] (43737) ALT (SGPT) 48 [iU]/L (Abnormal) Range: 0-32 [...] auto diff Comments: PATIENT WAS FASTINGPERFORMED BY: LabCoJefferson [facility])Qfdrdr4669 [facility] [id number] Information: [id number] (27186) Immature Grans (Abs) 0.0 {x10E3/uL} (Normal) Range: [...] 8.3 {x10E3/uL} (Normal) Range: 3.4-10.8 :45 TSH (54641) Comments: PATIENT WAS FASTINGPERFORMED BY: LabCoJefferson [facility])Zkxrki5394 [facility] [id number] TSH 25.460 {uIU/mL} (Abnormal) Range: 0.450-4.500 04-Qxg-104844:16 Renal Profile Comments: [facility] Bynfiptoch[address] [place], [place], [phone] CO2 23.0 mmol/L (Normal) Range: 21.0-32.0 CL [...] 7-18 GLU 108 mg/dL (Normal) Range: 70-110 28-Ayu-848885:07 Culture, Urine Comments: [facility] Mkefjahqpr[address] [place], [place], [address] CUUR See Note (Normal) Comments: Urine CultureORGANISM 1: Streptococcus mitis/ oralisColony Count 50,000-80,000 Streptococcus mitis/ oralis: REACTION Ampicillin $ <=0.25 S Benzylpenicillin NF 8 R Ceftriaxone (other dx) $ <=0.12 S Levofloxacin $ 8 R Tetracycline NF >=16 R Vancomycin $ 0.25 S(NF) indicates non-formulary drug at [facility]. Approval by Infectious Disease Specialist required b efore non-formulary drugs may be ordered and/or dispensed. * CLSI guidelines does not recommend testing of cephalosporins. This interpretation is deduced from Beta-lactam/penicillin results. 43-Jog-95874:58 CALCIFIDIOL (87433) VIT D 25 Comments: PATIENT NOT FASTINGPERFORMED BY: [facility]6[address] [facility] [id number] Vitamin D, 25-Hydroxy 43.7 ng/mL (Normal) Range: 30.0-100.0 Comments: Vitamin D deficiency has been defined by the [place] ofMedicine and an Endocrine Society practice guideline as alevel of serum 25-OH vitamin D less than 20 ng/mL (1,2).The Endocrine Society went on to further define vitamin Dinsufficiency as a level between 21 and 29 ng/mL (2).1. IOM ([place] of Medicine). 2010. Dietary reference intakes for calcium and D. [place]: The National Academies Press.2. Justin MF, Jazmyn NC, Aniya CANO, et al. Evaluation, treatment, and prevention of vitamin D deficiency: an Endocrine Society clinical practice guideline. JCEM. 2010; 96(7):1911-30. :58 METABOLIC PANEL, Comments: PATIENT NOT FASTINGPERFORMED BY: [facility] Zavvdi8606 [facility] [id number] Information: [id number] DIFFICULT D RAW; apt. 4-25 COMPREHENSIVE (23722) ALT (SGPT) 11 [iU]/L (Normal) Range: 0-32 [...] Panel, Basic Comments: PATIENT NOT FASTINGPERFORMED BY: Supertec70 [facility] [id number] Information: [id number] (61223) Calcium, Serum 7.8 mg/dL (Abnormal) Range: 8.7-10.3 [...] (Abnormal) Range: 65-99 Comments: Client Requested Flag 36-Dsj-511061:23 Urinalysis, Office (07287) UA - LEUKOCYTE ESTERASE Trace (Normal) UA - NITRITE Negative (Normal) URINE UROBILINGN EVY TIMED Normal mg/dL (Normal) UA - PROTEIN 30 mg/dL (Normal) UA - PH 6.0 (Normal) UA - BLOOD Negative (Normal) UA - SPECIFIC GRAVITY 1.025 (Normal) UA - KETONES Negative mg/dL (Normal) UA - BILIRUBIN Negative (Normal) UA - GLUCOSE Negative (Normal) 1-Egd-483297:01 Metabolic Panel, Comments: PATIENT NOT FASTINGPERFORMED BY: GTX MessagingTuba City Regional Health Care CorporationCwkbnx5129 [facility] [id number] Information: [id number] Comprehensive (21917) ALT (SGPT) 52 [iU]/L (Abnormal) Range: 0-32 [...] cells when received.This may adversely affect serumChemistries. 55-Lgt-277848:30 Metabolic Panel, Comments: PATIENT NOT FASTINGPERFORMED BY: LabCoJefferson [facility])Zpkmqh6623 [facility] [id number] Information: [id number] Comprehensive (05065) ALT (SGPT) 9 [iU]/L (Normal) Range: 0-32 [...] (Prothrobim Time) Comments: PATIENT NOT FASTINGPERFORMED BY: LabCoJefferson [facility])Tyevlf2854 [facility] [id number] Information: [id number] (74764) Prothrombin Time 12.6 {sec} (Abnormal) Range: 9.1-12.0 INR 1.2 (Normal) Range: 0.8-1.2 Comments: Reference interval is for non-anticoagulated patients. . Suggested INR therapeutic range for Vitamin K anta gonist therapy: Standard Dose (moderate intensity therapeutic range): 2.0 - 3.0 Higher intensity therapeutic range 2.5 - 3.5 92-Hjm-389161:50 Urinalysis, Office (38130) UA - LEUKOCYTE ESTERASE Trace (Normal) UA - NITRITE Negative (Normal) URINE UROBILINGN EVY TIMED Normal mg/dL (Normal) UA - PROTEIN 100 mg/dL (Normal) UA - PH 6.0 (Normal) UA - BLOOD Non Hemolyzed Trace (Normal) UA - SPECIFIC GRAVITY 1.030 (Abnormal) UA - KETONES Negative mg/dL (Normal) UA - BILIRUBIN Negative (Normal) UA - GLUCOSE Negative (Normal) 47-Hhr-723451:26 URINE CARMEN CULTURE (EVY Comments: PATIENT NOT FASTINGPERFORMED BY: Supertec70 PetcoThe Outer Banks Hospital [id number] Information: SRC:[facility] [id number] COL COUNT) (81517) Result 1 NG36 (Normal) Comments: No growth in 36 - 48 hours. Urine Culture,Comprehensive Final report (Normal) 5-Shv-854479:08 Vitamin B-12 (cyanocobalamin) Comments: in six months (approximately); PATIENT WAS FASTINGPERFORMED BY: PartyLine6370 PetcoThe Outer [facility] Hospital [id number] (16670) Vitamin B12 433 pg/mL (Normal) Range: 211-946 3-Kjq-500047:08 CBC W/AUTO DIFF WBC Comments: in six months (approximately); PATIENT WAS FASTINGPERFORMED BY: PartyLine6370 [facility] [id number] Information: [id number] (21190) Immature Grans (Abs) 0.0 {x10E3/uL} (Normal) Range: [...] 3.77-5.28 WBC 5.2 {x10E3/uL} (Normal) Range: 3.4-10.8 6-Eck-072433:08 TSH (41475) Comments: in six months (approximately); PATIENT WAS FASTINGPERFORMED BY: LabCoJefferson [facility])Rtcrsn7879 [facility] [id number] TSH 0.802 {uIU/mL} (Normal) Range: 0.450-4.500 96-Xxk-214681:38 METABOLIC PANEL, Comments: in six months (approximately); PATIENT NOT FASTINGPERFORMED BY: LabCoJefferson [facility])Iyguol7866 [facility] [id number] Information: [id number] COMPREHENSIVE (68697) ALT (SGPT) 10 [iU]/L (Normal) Range: 0-32 [...] Glucose, Serum 91 mg/dL (Normal) Range: 65-99 2-Bqa-164299:08 LIPID PANEL (12480) Comments: in six months (approximately); PATIENT WAS FASTINGPERFORMED BY: [facility]ampleAt[facility] Health Mercy [id number]; apt. 16 LDL/HDL Ratio 0.8 {ratio_units} (Normal) [...] Cholesterol, Total 205 mg/dL (Abnormal) Range: 100-199 4-Rdr-480915:08 PT (Prothrobim Time) (82310) Comments: today; PATIENT WAS FASTINGPERFORMED BY: [employer] [facility] [id number]; inr not need addressed patient on Eli[employer] Prothrombin Time 11.0 {sec} (Normal) Range: 9.1-12.0 INR 1.1 (Normal) Range: 0.8-1.2 Comments: Reference interval is for non-anticoagulated patients. . Suggested INR therapeutic range for Vitamin K anta gonist therapy: Standard Dose (moderate intensity therapeutic range): 2.0 - 3.0 Higher intensity therapeutic range 2.5 - 3.5 7-Lav-811064:08 POTASSIUM SERUM (48537) Comments: today; PATIENT WAS FASTINGPERFORMED BY: [employer] Lvmvwj6269 ITelagenAtrium Health Mercy [id number] Potassium, Serum 4.4 mmol/L (Normal) Range: 3.5-5.2 91-Vkx-18179:41 Comp. Metabolic Panel (14) Comments: PATIENT NOT FASTINGPERFORMED BY: [employer] [facility] Cnwgmu7969 [facility] [id number] Information: [id number] DIFFICULT D RAW ALT (SGPT) 10 [iU]/L [...] Microscopic Examination Comments: PATIENT NOT FASTINGPERFORMED BY: Induction ManagerSurgeons Choice Medical Center6[address] [facility] [id number] Bacteria Few (Normal) Mucus Threads Present (Normal) Epithelial Cells (non renal) 0-10 {/hpf} (Normal) Range: 0 - 10 RBC 0-2 {/hpf} (Normal) Range: 0 - 2 WBC >30 {/hpf} (Abnormal) Range: 0 - 5 :41 Urinalysis, Complete Comments: PATIENT NOT FASTINGPERFORMED BY: [facility] [facility] [id number] Microscopic Examination See below: (Normal) Comments: Microscopic was indicated and was performed. Nitrite, Urine Negative (Normal) Urobilinogen,Semi-Qn 0.2 mg/dL (Normal) Range: 0.0-1.9 Bilirubin Negative (Normal) Occult Blood Negative (Normal) Ketones Negative (Normal) Glucose Negative (Normal) Protein Trace (Normal) WBC Esterase 2+ (Abnormal) Appearance Cloudy (Abnormal) Urine-Color Yellow (Normal) pH 6.0 (Normal) Range: 5.0-7.5 Specific [place] 1.015 (Normal) Range: 1.005-1.030 24-Ktn-986582:49 Prothrombin Time (PT) Comments: PATIENT NOT FASTINGPERFORMED BY: [facility] [facility] [id number] Information: [id number] Prothrombin Time 28.9 {sec} (Abnormal) Range: 9.1-12.0 INR 2.7 (Abnormal) Range: 0.8-1.2 Comments: Reference interval is for non-anticoagulated patients. . Suggested INR therapeutic range for Vitamin K anta gonist therapy: Standard Dose (moderate intensity therapeutic range): 2.0 - 3.0 Higher intensity therapeutic range 2.5 - 3.5 54-Ozc-156007:49 Prothrombin Time (PT) Comments: PATIENT NOT FASTINGPERFORMED BY: [facility] [facility] [id number] Information: [id number] Prothrombin Time 31.0 {sec} (Abnormal) Range: 9.1-12.0 INR 2.8 (Abnormal) Range: 0.8-1.2 Comments: Reference interval is for non-anticoagulated patients. . Suggested INR therapeutic range for Vitamin K anta gonist therapy: Standard Dose (moderate intensity therapeutic range): 2.0 - 3.0 Higher intensity therapeutic range 2.5 - 3.5 :28 Eosinophil, Urine (00485) Comments: PATIENT NOT FASTINGPERFORMED BY: [facility] Lodeqp1629 [facility] [id number] Information: [id number] Eosinophil, Urine No Eosinophils Seen % Comments: <5% few or none seenReceived at room temperature;interpret result with caution. (Normal) :28 Eosinophil, Urine (35256) Comments: PATIENT NOT FASTINGPERFORMED BY: [facility]Jeff[facility]Dbssoj8145 [facility] [id number] Information: [id number] Eosinophil, Urine No Eosinophils Seen % Comments: <5% few or none seenReceived at room temperature;interpret result with caution. (Normal) :54 Basic Metabolic Profile (BMP) Comments: Test performed at:[facility] Hrnupfwmrf8044 [facility] [place] [address] GAP 5 (Normal) Range: 5-15 CO2 27.0 [...] :54 Microalb:Creat Ratio,Random UR Comments: Test performed at:[facility] Cibcqzxcck6626 [facility] [place] [address] MALB:CREAT 44.5 {mg/g_CRE} (Abnormal) MICROALBUMIN,UR 52.7 mg/L (Normal) UR CREAT 118.2 mg/dL (Normal) 21-May-20147:54 Urinalysis, Routine (Dipstick) Comments: How was Urine Obtained? CLEAN CATCHTest performed at:[facility] Jobuqxetjb19[address] [place] [address] LEUK ESTERASE 100 /ul (Abnormal) OCCULT BLOOD-UR 10 /ul (Abnormal) NITRITE UR Negative (Normal) UROBILI Normal mg/dL (Normal) PROT DIPSTX 15 mg/dL (Abnormal) pH UR 5.0 (Normal) Range: 5.0 - 8.0 SP.GR. DIPSTX 1.020 (Normal) Range: 1.002-1.030 KETONE UR Negative mg/dL (Normal) BILIRUBIN URINE Negative mg/dL (Normal) GLUCOSE, UR Normal mg/dL (Normal) CLARITY Sl. Cloudy (Normal) COLOR Yellow (Normal) 06-Npl-291959:07 Eosinophil, Urine (70367) Comments: PATIENT NOT FASTINGPERFORMED BY: [facility]LightThe [facility] [id number] Information: [id number] Eosinophil, Urine 5 % (Normal) Comments: <5% few or none seenReceived at room temperature;interpret result with caution. 78-Vog-149584:10 MICROALBUMIN: CREATININE RATIO Comments: recheck in 6 weeks; PATIENT NOT FASTINGPERFORMED BY: DentLightThe [facility] [id number] (51963) AND (97885) Microalb/Creat Ratio 92.2 {mg/g_creat} (Abnormal) Range: 0.0-30.0 Microalbumin, Urine 180.9 ug/mL (Abnormal) Range: 0.0-17.0 Creatinine, Urine 196.2 mg/dL (Normal) Range: 15.0-278.0 09-Dkb-796542:10 Metabolic Panel, Basic Comments: recheck in 6 weeks; PATIENT NOT FASTINGPERFORMED BY: [facility]LightThe [facility] [id number] Information: [id number] (69878) Calcium, Serum 9.2 mg/dL (Normal) Range: 8.7-10.3 [...] 89 mg/dL (Normal) Range: 65-99 :21 CALCIFIDIOL (42523) VIT D 25 Comments: PATIENT NOT FASTINGPERFORMED BY: LabGuestMetrics[address] [facility] [id number] Vitamin D, 25-Hydroxy 35.5 ng/mL (Normal) Range: 30.0-100.0 Comments: Vitamin D deficiency has been defined by the [place] ofMedicine and an Endocrine Society practice guideline as alevel of serum 25-OH vitamin D less than 20 ng/mL (1,2).The Endocrine Society went on to further define vitamin Dinsufficiency as a level between 21 and 29 ng/mL (2).1. IOM ([place] of Medicine). 2010. Dietary reference intakes for calcium and D. [place]: The National Academies Press.2. uJstin MF, Jazmyn NC, Aniya CANO, et al. Evaluation, treatment, and prevention of vitamin D deficiency: an Endocrine Society clinical practice guideline. JCEM. 2010; 96(7):1911-30. :22 Total Protein,24 Hour Urine Comments: PATIENT NOT FASTINGPERFORMED BY: [facility] Wndwmm6160 [facility] [id number] ([id number]) Prot,24hr calculated 196.5 {mg/24_hr} (Abnormal) Range: 30.0-150.0 Protein,Total,Urine 39.3 mg/dL (Abnormal) Range: 0.0-15.0 9-Mzj-366049:22 CREATININE CLEARANCE Comments: PATIENT NOT FASTINGPERFORMED BY: CRISTA [facility]North[facility] Rbzsto1674 [facility] [id number] Information: SRC: [id number] START- 4@630AM YOHAN Peres (74997) Creatinine Clearance 29 mL/min (Abnormal) Range: 88-128 Comments: The above range is based on 1.73 square meter average body surfacearea. Creatinine, Ur 24hr 544.0 {mg/24_hr} (Abnormal) Range: 800.0-1800.0 Creatinine, Urine 108.8 mg/dL (Normal) Range: 15.0-278.0 eGFR If Africn Am 46 mL/min/1.73 (Abnormal) eGFR If NonAfricn Am 40 mL/min/1.73 (Abnormal) Creatinine, Serum 1.31 mg/dL (Abnormal) Range: 0.57-1.00 0-Ooz-618431:21 PT (Prothrobim Time) Comments: standing order; PATIENT NOT FASTINGPERFORMED BY: [facility] [facility] [id number] Information: [id number] (78693) Prothrombin Time 26.3 {sec} (Abnormal) Range: 9.1-12.0 INR 2.4 (Abnormal) Range: 0.8-1.2 Comments: Reference interval is for non-anticoagulated patients. . Suggested INR therapeutic range for Vitamin K anta gonist therapy: Standard Dose (moderate intensity therapeutic range): 2.0 - 3.0 Higher intensity therapeutic range 2.5 - 3.5 05-Otu-302166:36 Request Problem Comments: PATIENT NOT FASTINGPERFORMED BY: [place] [address] [facility] [id number] 65-Nkw-146646:23 Vitamin B-12 (cyanocobalamin) Comments: PATIENT NOT FASTINGPERFORMED BY: [facility] [facility] [id number] (88977) :23 TSH (73759) Comments: PATIENT NOT FASTINGPERFORMED BY: Induction ManagerSurgeons Choice [facility] Center6[address] [facility] [id number] :23 PT (Prothrobim Time) (96262) Comments: INR standing order do today also; PATIENT NOT FASTINGPERFORMED BY: Induction ManagerSurgeons Choice Medical Center6[address] [facility] [id number] INR 1.8 (Abnormal) Range: 0.8-1.2 Comments: Reference interval is for non-anticoagulated patients. . Suggested INR therapeutic range for Vitamin K anta gonist therapy: Standard Dose (moderate intensity therapeutic range): 2.0 - 3.0 Higher intensity therapeutic range 2.5 - 3.5 Prothrombin Time 18.4 {sec} (Abnormal) Range: 9.1-12.0 :23 METABOLIC PANEL, COMPREHENSIVE Comments: PATIENT NOT FASTINGPERFORMED BY: Induction ManagerJennifer Ville 7475470 [facility] [id number] (41799) ALT (SGPT) 13 [iU]/L (Normal) Range: 0-32 [...] Glucose, Serum 75 mg/dL (Normal) Range: 65-99 07-Psc-731028:23 LIPID PANEL (21196) Comments: PATIENT NOT FASTINGPERFORMED BY: [facility]6[address] [facility] [id number] LDL/HDL Ratio 1.1 {ratio_units} (Normal) Range: 0.0-3.2 LDL Cholesterol Calc 92 mg/dL (Normal) Range: 0-99 HDL Cholesterol 82 mg/dL (Normal) Comments: According to ATP-III Guidelines, HDL-C >59 mg/dL is considered anegative risk factor for CHD. VLDL Cholesterol Alesha 38 mg/dL (Normal) Range: 5-40 Cholesterol, Total 212 mg/dL (Abnormal) Range: 100-199 Triglycerides 192 mg/dL (Abnormal) Range: 0-149 49-Sbb-524763:23 CBC WITH MANUAL DIFF Comments: PATIENT NOT FASTINGPERFORMED BY: [employer] Rvmnne3339 [facility] [id number] Information: [id number], [id number]: [id number] (74429) Immature Grans (Abs) 0.0 {x10E3/uL} (Normal) Range: [...] 3.77-5.28 WBC 6.5 {x10E3/uL} (Normal) Range: 3.4-10.8 60-Qbd-075308:23 Sed Rate Erythrocyte (53738) Comments: PATIENT NOT FASTINGPERFORMED BY: [employer] [facility] Gsitgc8855 [facility] [id number] Sedimentation Rate-Westergren 16 mm/h (Normal) Range: 0-40 78-Djc-654127:50 CBC with manual diff Comments: recheck in 4 weeks; PATIENT NOT FASTINGPERFORMED BY: [facility] [address] [id number] Information: ADD [id number] AND DRAW FEE 99 1407 (00629) Immature Grans (Abs) 0.0 {x10E3/uL} (Normal) Range: [...] 3.77-5.28 WBC 10.5 {x10E3/uL} (Normal) Range: 3.4-10.8 95-Rvl-593398:50 Sed Rate Erythrocyte (45715) Comments: re check in 4 weeks; PATIENT NOT FASTINGPERFORMED BY: DentLightThe [facility] [id number] Sedimentation Rate-Westergren 39 mm/h (Normal) Range: 0-40 :48 PREALBUMIN (31515) Comments: PATIENT NOT FASTINGPERFORMED BY: [employer] Yozopq3997 Anand DICOM GridThe Outer Banks Hospital [id number] Prealbumin 23 mg/dL (Normal) Range: 20-40 :48 Magnesium (99199) Comments: PATIENT NOT FASTINGPERFORMED BY: [employer]70 PetcoThe Outer Banks Hospital [id number] Magnesium, Serum 1.8 mg/dL (Normal) Range: 1.6-2.6 :48 Metabolic Panel, Comments: PATIENT NOT FASTINGPERFORMED BY: [employer] Mess[employer] [facility] [id number] Information: [id number] [facility] (08213) ALT (SGPT) 12 [iU]/L (Normal) Range: 0-32 [...] Glucose, Serum 86 mg/dL (Normal) Range: 65-99 92-Exw-465425:15 CBC With Differential/Platelet Comments: PATIENT WAS FASTINGPERFORMED BY: CB [facility] Bbfroo6785 [facility] [id number] BY: BN [facility] [address] [id number] Immature Grans (Abs) 0.0 {x10E3/uL} (Normal) Range: [...] 3.77-5.28 WBC 5.9 {x10E3/uL} (Normal) Range: 4.0-10.5 05-Kxy-403835:15 Comp. Metabolic Panel Comments: PATIENT WAS FASTINGPERFORMED BY: CB [facility] Qoyzru5638 [facility] [id number] BY: BN [facility] [address] [id number] (14) ALT (SGPT) 7 [iU]/L (Normal) Range: [...] 16.5 umol/L Comments: PATIENT WAS FASTINGPERFORMED BY: [facility]lin6[address] [facility] [id number] BY: Induction Manager[address] [id number] :15 Plasma (Abnormal) Range: 0.0-15.0 85-Vrp-310612:15 Lipid Panel With LDL/HDL Comments: PATIENT WAS FASTINGPERFORMED BY: [employer] Brrbab[address] [place] [address] [id number] BY: GTX Messaging[address] [id number] Ratio LDL/HDL Ratio 0.7 {ratio_units} Range: 0.0-3.2 [...] nmol/L (Normal) Comments: PATIENT WAS FASTINGPERFORMED BY: [facility]70 [facility] [id number] BY: [address] [id number] 310:15 Serum Range: 73-376 Comments: The reference range for methylmalonic acid has been set at +3sd abovethe mean for healthy blood bank donors. In the clinical assessment ofpatients with megaloblastic anemias a cutoff of +3sd provides gr eaterspecificity in the diagnosis of the vitamin deficiency states,despite the sacrifice of some sensitivity. 96-Upr-773387:15 Prothrombin Time (PT) Comments: PATIENT WAS FASTINGPERFORMED BY: [facility]70 [facility] [id number] BY: GTX Messaging[address] [id number] Prothrombin Time 20.5 {sec} (Abnormal) Range: 9.1-12.0 INR 2.0 (Abnormal) Range: 0.8-1.2 Comments: Reference interval is for non-anticoagulated patients. . Suggested INR therapeutic range for Vitamin K anta gonist therapy: Standard Dose (moderate intensity therapeutic range): 2.0 - 3.0 Higher intensity therapeutic range 2.5 - 3.5 TSH 0.706 {uIU/mL} Comments: PATIENT WAS FASTINGPERFORMED BY: [facility]70 [facility] [id number] BY: [address] [id number] :15 (Normal) Range: 0.450-4.500 74-Rej-803552:15 Vitamin B12 and Folate Comments: PATIENT WAS FASTINGPERFORMED BY: [facility]70 [facility] [id number] BY: Induction Manager[address] [id number] Folate (Folic Acid), >19.9 ng/mL (Normal) Comments: A serum folate concentration of less than 3.1 ng/mL isconsidered to represent clinical deficiency. Serum Vitamin B12 561 pg/mL (Normal) Range: 211-946 Vitamin D, 49.7 ng/mL (Normal) Comments: PATIENT WAS FASTINGPERFORMED BY: [facility] [facility] [id number] BY: [address] [id number] :15 25-Hydroxy Range: 30.0-100.0 Comments: Vitamin D deficiency has been defined by the [place] ofMedicine and an Endocrine Society practice guideline as alevel of serum 25-OH vitamin D less than 20 ng/mL (1,2).The Endocrine Society went on to further define vitamin Dinsufficiency as a level between 21 and 29 ng/mL (2).1. IOM ([place] of Medicine). 2010. Dietary reference intakes for calcium and D. [place]: The National Academies Press.2. Justin MF, Jazmyn NC, Rafael-Stan CANO, et al. Evaluation, treatment, and prevention of vitamin D deficiency: an Endocrine Society clinical practice guideline. JCEM. 2010; 96(7):1911-30. 14-Pgu-699390:20 PT (Prothrobim Time) (63172) Comments: standing order; PATIENT NOT FASTINGPERFORMED BY: [facility]6[address] [facility] [id number] Prothrombin Time 28.6 {sec} (Abnormal) Range: 9.1-12.0 INR 2.8 (Abnormal) Range: 0.8-1.2 Comments: Reference interval is for non-anticoagulated patients. . Suggested INR therapeutic range for Vitamin K anta gonist therapy: Standard Dose (moderate intensity therapeutic range): 2.0 - 3.0 Higher intensity therapeutic range 2.5 - 3.5 73-Erf-473959:30 CBC With Differential/Platelet Comments: PERFORMED BY: [facility] [facility] [id number] BY: GTX Messaging[address] [id number] Information: PER [facility] 03-07-12 RANDOM U Immature Grans (Abs) 0.0 [...] 3.77-5.28 WBC 9.1 {x10E3/uL} (Normal) Range: 4.0-10.5 94-Lps-333272:30 Chromium, Urine Comments: PERFORMED BY: CRISTA [employer] Zabuge5356 [facility] [id number] BY: GTX Messaging[address] [id number] Chromium/Creat Ratio 0.2 {ug/g_creat} Range: 0.0-4.9 (Normal) Comments: Environmental Exposure: 0.0 - 4.9 Occupational Exposure: RAEGAN 25.0 Chromium, Urine 0.3 ug/L (Normal) Range: 0.1-2.0 Comments: Detection Limit = 0.10 20-Dec-201 Ferritin, Serum 64 ng/mL (Normal) Comments: PERFORMED BY: GTX MessagingJefferson [facility])Nmhupo6[address] [place] [address] [id number] BY: [address] [id number] 214:30 Range: 13-150 20-Dec-201 Homocyst(e)ine, Plasma 32.2 umol/L Comments: PERFORMED BY: GTX Messaging[address] [id number] BY: [address] [id number] 214:30 (Abnormal) Range: 0.0-15.0 20-Dec-201 Iron, Serum 38 ug/dL (Normal) Comments: PERFORMED BY: GTX MessagingJefferson Washington [facility])Ywtbuq6668 [facility] [id number] BY: [address] [id number] 214:30 Range: 35-155 20-Dec-201 Magnesium, Serum 1.8 mg/dL (Normal) Comments: PERFORMED BY: GTX Messaging[address] [id number] BY: [address] [id number] 214:30 Range: 1.6-2.6 20-Dec-201 Methylmalonic Acid, 525 nmol/L (Abnormal) Comments: PERFORMED BY: GTX Messaging[address] [id number] BY: [address] [id number] 214:30 Serum Range: 73-376 Comments: Verified by repeat analysisThe reference range for methylmalonic acid has been set at +3sd abovethe mean for healthy blood bank donors. In the clinical assessment ofpatients with megaloblastic anemi as a cutoff of +3sd provides greaterspecificity in the diagnosis of the vitamin deficiency states,despite the sacrifice of some sensitivity. Phosphorus, Serum 3.6 mg/dL (Normal) Comments: PERFORMED BY: BitMethod [facility] [id number] BY: [address] [id number] 214:30 Range: 2.5-4.5 PTH, Intact 32 pg/mL (Normal) Comments: PERFORMED BY: BitMethod [facility] [id number] BY: [address] [id number] 214:30 Range: 15-65 Sedimentation 21 mm/h (Normal) Comments: PERFORMED BY: Ruth Kunstadter – [employer]70 [facility] [id number] BY: [address] [id number] 214:30 Rate-Westergren Range: 0-40 Vitamin A, Serum 88 ug/dL (Abnormal) Comments: PERFORMED BY: [employer] [facility] [facility] [id number] BY: [address] [id number] 214:30 Range: 18-77 55-Oze-962313:30 Vitamin B12 and Folate Comments: PERFORMED BY: [employer] Mess[employer] Rrueqe9957 [facility] [id number] BY: [address] [id number] Folate (Folic Acid), >19.9 ng/mL (Normal) Comments: A serum folate concentration of less than 3.1 ng/mL isconsidered to represent clinical deficiency. Serum Vitamin B12 326 pg/mL (Normal) Range: 211-946 Vitamin D, 21.0 ng/mL Comments: PERFORMED BY: [employer]6[address] [facility] [id number] BY: GTX Messaging[address] [id number] :30 25-Hydroxy (Abnormal) Range: 30.0-100.0 Comments: Vitamin D deficiency has been defined by the [place] ofL[facility] City Hospitalcine and an Endocrine Society practice guideline as alevel of serum 25-OH vitamin D less than 20 ng/mL (1,2).The Endocrine Society went on to further define vitamin Dinsufficiency as a level between 21 and 29 ng/mL (2).1. IOM ([place] of Medicine). 2010. Dietary reference intakes for calcium and D. [place]: The National Academies Press.2. Justin MF, Jazmyn FOSTER, Aniya CANO, et al. Evaluation, treatment, and prevention of vitamin D deficiency: an Endocrine Society clinical practice guideline. JCEM. 2010; 96(7):1911-30. :30 Zinc, Urine Comments: PERFORMED BY: [facility]6370 [facility] [id number] BY: GTX Messaging[address] [id number] Zinc/Creat. Ratio 497 {ug/g_creat} (Normal) Range: 100-900 Creatinine(Hearing Dog Trainer),U 1.95 g/L (Normal) Range: 0.30-3.00 Comments: Detection [...] Sarkar D.O.December 05, 2011 at 7:36:04 PM [id number] Signed IF/IF If you are the referring physician and would like to consult with theradiologist who provided this interpretation, please contact Fabian Sarkar D.O.at [phone]. If this radiologist is unavailable, you will be directedto another radiologist to assist. If you are a patient with a question regarding this report, pleasecontactyour referring physician directly. Professional Interpretation Provided By: [employer], Phone , Thes e documents contain legally [...] on 12/05/111942 Sign by: Fabian Sarkar DO 5-Koe-000243:10 Metabolic Panel, Comprehensive Comments: copy to Dr. shukal; PATIENT NOT FASTINGPERFORMED BY: LabCoJeff[facility])Vhaxmb4984 [facility] [id number] (84299) ALT (SGPT) 16 [iU]/L (Normal) Range: 0-40 [...] Glucose, Serum 85 mg/dL (Normal) Range: 65-99 0-Mck-762775:10 CBC, Platelets & Auto Diff Comments: PATIENT NOT FASTINGPERFORMED BY: Induction ManagerCoJefferson [facility])Zsqllx4818 [facility] [id number] Information: [id number] (47039) Immature Grans (Abs) 0.0 {x10E3/uL} (Normal) Range: [...] 3.77-5.28 WBC 8.1 {x10E3/uL} (Normal) Range: 4.0-10.5 :10 Sed Rate Erythrocyte (82037) Comments: PATIENT NOT FASTINGPERFORMED BY: [facility]CoJeff[facility])Odnylo1729 [facility] [id number] Sedimentation Rate-Westergren 53 mm/h (Abnormal) Range: 0-40 :14 Basic Metabolic Panel (8) Comments: PERFORMED BY: 15Fivelin6370 [facility] [id number] Calcium, Serum 9.9 mg/dL (Normal) Range: 8.6-10.2 [...] Protein Electro, Random Urine Comments: PERFORMED BY: GTX MessagingJefferson Washington [facility])Pvwjit2517 [facility] [id number] Please note: SPRCS (Normal) Comments: Protein electrophoresis scan will follow via computer, mail, orcourier delivery. Sntuk-2-Qhxpcsac, U 8.9 % (Normal) Beta Globulin, U 25.6 % (Normal) Gamma Globulin, U 26.9 % (Normal) M-Navarro, % Not Observed % (Normal) Albumin, U 36.2 % (Normal) Zwegn-7-Mxopmetf, U 2.5 % (Normal) Protein,Total,Urine 40.0 mg/dL (Abnormal) Range: 0.0-15.0 16-Jbk-009777:14 Protein Electro.,S Comments: PERFORMED BY: CRISTA [facility] Oulsnx4429 [facility] [id number] Please note: SPRCS (Normal) Comments: Protein electrophoresis scan will follow via computer, mail, orcourier delivery. 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.Performed At: [facility] [place], [place] [id number] RIBA RESULT <TEST NOT PERFORMED> (Normal) :10 [...] Flags Indication: Low back pain Planned Observations URINALYSIS (93537)Indication: Chronic kidney disease, stage III (moderate) On: 93-Gyg-527543:36 Request MICROALBUMIN: CREATININE RATIO (67837) AND (50796)Indication: Chronic kidney disease, stage III (moderate) On: 35-Rnb-913575:35 Request METABOLIC PANEL, COMPREHENSIVE (48832)Indication: Chronic kidney disease, stage III (moderate) On: 1-Qcy-201087:59 Request CALCIFIDIOL (10107) VIT D 25Indication: Vitamin D deficiency On: 9-Wbt-147528:59 Request CARMEN CULTURE-OTHER (19035)Indication: Vaginal discharge On: 75-Kyu-297316:46 Request Comments: vagina BACT CULTURE ANY-ANAEROBIC (42801)Indication: Vaginal discharge On: 22-Tiw-884910:13 Request Comments: of vaginal fluid PHOSPHORUS (00855)Indication: Chronic kidney disease, stage III (moderate) On: 41-Yfu-591524:26 Request Comments: do before November office visit PHOSPHORUS (43475)Indication: Malnutrition On: 23-Aug-20179:21 Request Phosphorus (06015)Indication: Malnutrition On: :42 Request Magnesium (70104)Indication: Malnutrition On: :42 Request C-Reactive Protein (63142)Indication: Osteomyelitis of pelvic region On: 92-Wgx-716957:04 Request METABOLIC PANEL, COMPREHENSIVE (49385)Indication: Benign essential HTN On: :52 Request URIC ACID BLOOD (73336)Indication: Abnormal blood chemistry On: :52 Request Iron (86146)Indication: Anemia On: 21-Opr-573144:44 Request Iron Binding Capacity (TIBC) (98440)Indication: Anemia, chronic disease On: :53 Request Comments: in 6 weeks Iron ([id number])Indication: Anemia, chronic disease On: :53 Request Comments: in 6 weeks Metabolic Panel, Comprehensive ([id number])Indication: Benign essential HTN On: :52 Request Comments: now and in 6 weeks T4, FREE (THYROXINE) ([id number])Indication: Hypothyroidism On: :52 Request Comments: now and in 6 weeks TSH ([id number])Indication: Hypothyroidism On: :52 Request Comments: now and in 6 weeks CBC, Platelets & Auto Diff (19225)Indication: Anemia, chronic disease On: :51 Request Comments: now and in 6 weeks Total Protein,24 Hour Urine ([id number])Indication: Chronic kidney disease, stage III (moderate) On: :50 Request CREATININE CLEARANCE (99884)Indication: Chronic kidney disease, stage III (moderate) On: :49 Request FECAL OCCULT- Tubes sent home (08522)Indication: Anemia, chronic disease On: :48 Request IRON ([id number])Indication: Anemia, chronic disease On: :48 Request Urine Protein Electrophoresis (UPEP) (39608)Indication: Chronic kidney disease, stage III (moderate) On: 98-Bnd-762516:42 Request T4, FREE (THYROXINE) (22756)Indication: Hypothyroidism On: :52 Request T3, FREE (TRIDOTHYRONINE) ([id number])Indication: Hypothyroidism On: :52 Request TSH (THYROID STIMULATING HORMONE) (02135)Indication: Hypothyroidism On: :52 Request FERRITIN ([id number])Indication: Anemia, chronic disease On: :51 Request IRON BINDING CAPACITY (TIBC) ([id number])Indication: Anemia, chronic disease On: :51 Request IRON & TOTAL IRON BINDING CAPACITY ([id number])Indication: Anemia, chronic disease On: :51 Request METABOLIC PANEL, COMPREHENSIVE (48253)Indication: Thrombocytosis On: :50 Request Iron ([id number])Indication: Anemia On: :54 Request T3, FREE (TRIDOTHYRONINE) ([id number])Indication: Hypothyroidism On: :24 Request TSH ([id number])Indication: Hypothyroidism On: :24 Request T4, FREE (THYROXINE) ([id number])Indication: Hypothyroidism On: :24 Request ESR-F (SED RATE ERYTHROCYTE - FEMALE) ([id number])Indication: Osteomyelitis of pelvic region On: :59 Request Comments: 11/11/15 C-REACT PROT HIGH SENS(hsCRP) ([id number])Indication: Osteomyelitis of pelvic region On: :59 Request Comments: 11/11/15 CBC, PLATELETS & AUT DIFF ([id number])Indication: Osteomyelitis of pelvic region On: :58 Request Comments: 11/11/15 LIPID PANEL ([id number])Indication: Osteoporosis On: :58 Request Comments: 11/11/15 METABOLIC PANEL, COMPREHENSIVE ([id number])Indication: Osteomyelitis of pelvic region On: :58 Request Comments: 11/11/15 MICROALBUMIN: CREATININE RATIO (48873) AND ([id number])Indication: Osteoporosis On: :58 Request Comments: 11/11/15 VITAMIN B12 AND FOLATES (84531)Indication: Osteoporosis On: :58 Request Comments: 11/11/15 CALCIFEDIOL (28145)Indication: Osteoporosis On: :58 Request Comments: 11/11/15 LIPASE ([id number])Indication: Pancreatitis On: :04 Request Comments: 6 week METABOLIC PANEL, COMPREHENSIVE (27625)Indication: Liver function abnormality On: : Request Comments: 6 weeks T3, FREE (TRIDOTHYRONINE) ([id number])Indication: Hypothyroidism On: : Request Comments: 6 weeks T4, FREE (THYROXINE) ([id number])Indication: Hypothyroidism On: Request Comments: 6 weeks TSH (THYROID STIMULATING HORMONE) ([id number])Indication: Hypothyroidism On: : Request Comments: 6 weeks CBC, PLATELETS & AUT DIFF ([id number])Indication: Thrombocytosis On: : Request Comments: 6 weeks PT (Prothrobim Time) ([id number])Indication: History of DVT (deep vein thrombosis) On: 28-Jun-2015 Request PT (Prothrobim Time) ([id number])Indication: History of DVT (deep vein thrombosis) On: 29-May-2015 Request PT (Prothrobim Time) ([id number])Indication: History of DVT (deep vein thrombosis) On: 29-Apr-2015 Request PT (Prothrobim Time) ([id number])Indication: History of DVT (deep vein thrombosis) On: 30-Mar-2015 Request Metabolic Panel, Basic ([id number])Indication: Abnormal blood chemistry On: 35-Gcj-090670:47 Request PT (Prothrobim Time) ([id number])Indication: History of DVT (deep vein thrombosis) On: 28-Feb-2015 Request PT (Prothrobim Time) ([id number])Indication: History of DVT (deep vein thrombosis) On: 29-Jan-2015 Request PT (Prothrobim Time) ([id number])Indication: History of DVT (deep vein thrombosis) On: 30-Dec-2014 Request PT (Prothrobim Time) ([id number])Indication: History of DVT (deep vein thrombosis) On: 30-Nov-2014 Request Urinalysis, Office ([id number])Indication: Abnormal urine On: 66-Ruf-382893:18 Request PT (Prothrobim Time) ([id number])Indication: History of DVT (deep vein thrombosis) On: 01-Oct-2014 Request PT (Prothrobim Time) ([id number])Indication: History of DVT (deep vein thrombosis) On: 34-Din-638486:46 Request URINALYSIS, W/ MICRO ([id number])Indication: Chronic kidney disease, stage III (moderate) On: 28-Ska-527770:50 Request METABOLIC PANEL, COMPREHENSIVE ([id number])Indication: Chronic kidney disease, stage III (moderate) On: 93-Bwn-861083:50 Request Metabolic Panel, Basic ([id number])Indication: Chronic kidney disease, stage III (moderate) On: 16-Vzv-864207:12 Request URINALYSIS ([id number])Indication: Chronic kidney disease, stage III (moderate) On: 81-Jga-580587:51 Request Comments: recheck before June follow up MICROALBUMIN: CREATININE RATIO (11097) AND ([id number])Indication: Chronic kidney disease, stage III (moderate) On: 78-Pcf-049659:51 Request Comments: recheck before June follow up Metabolic Panel, Basic ([id number])Indication: Chronic kidney disease, stage III (moderate) On: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
--- OUTSIDE RECORDS SUMMARY | 2018-03-25 11:30 | XMS RPT_ITS | Continuity of Care Document ---
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 computer, mail, orcourier delivery. A/G Ratio 0.7 (Normal) Range: 0.7-1.7 Globulin, Total 4.2 g/dL (Abnormal) Range: 2.2-3.9 M-Navarro Not Observed g/dL (Normal) Gamma Globulin 1.2 g/dL (Normal) Range: 0.4-1.8 Beta Globulin 1.4 g/dL (Abnormal) Range: 0.7-1.3 Mdgjg-5-Mxhefmlg 1.1 g/dL (Abnormal) Range: 0.4-1.0 Mglwu-7-Kcxrfwmk 0.4 g/dL (Normal) Range: 0.0-0.4 Albumin 3.1 g/dL (Normal) Range: 2.9-4.4 :58 MAGNESIUM (26452) Comments: PATIENT NOT FASTINGPERFORMED BY: CB [facility] Hpfgij5479 Anand RoadDublin [place] [id number] Magnesium, Serum 1.8 mg/dL (Normal) Range: 1.6-2.3 :58 PHOSPHORUS (90999) Comments: PATIENT NOT FASTINGPERFORMED BY: CB [facility] Rzixlg3234 Anand RoadDublin [place] [id number] Phosphorus, Serum 4.7 mg/dL (Abnormal) Range: 2.5-4.5 :58 CALCIFEDIOL (52119) Comments: PATIENT NOT FASTINGPERFORMED BY: CB [facility] Jwkqgh4649 Anand RoadDublin [place] [id number] Vitamin D, 25-Hydroxy 34.5 ng/mL (Normal) Range: 30.0-100.0 Comments: Vitamin D deficiency has been defined by the [place] of[facility]erc[facility] and an Endocrine Society practice guideline as alevel of serum 25-OH vitamin D less than 20 ng/mL (1,2).The Endocrine Society went on to further define vitamin Dinsufficiency as a level between 21 and 29 ng/mL (2).1. IOM ([place] of Medicine). 2010. Dietary reference intakes for calcium and D. [place]: The National Academies Press.2. Justin MF, Jazmyn NC, Aniya CANO, et al. Evaluation, treatment, and prevention of vitamin D deficiency: an Endocrine Society clinical practice guideline. JCEM. 2010; 96(7):1911-30. :58 PARATHORMONE (76476) Comments: PATIENT NOT FASTINGPERFORMED BY: CB [facility] Nnjoqt0884 [address]and RoadDublin [place] [id number] PTH, Intact 41 pg/mL (Normal) Range: 15-65 :58 METABOLIC PANEL, Comments: PATIENT NOT FASTINGPERFORMED BY: CB [facility] Lztdmt2830 Anand RoadDublin [place] [id number] Information: DIFFICULT DRAW COMPREHENSIVE (22854) ALT (SGPT) 21 [iU]/L (Normal) Range: 0-32 [...] Glucose, Serum 63 mg/dL (Abnormal) Range: 65-99 6-Bzq-835719:04 Vitamin B-12 (cyanocobalamin) Comments: PATIENT WAS FASTINGPERFORMED BY: Prosodic Buvyvwaypy[address] [id number] BY: ProsodicLos Alamos Medical CenterPqjgle9894 [facility] [id number] (58148) Vitamin B12 >2000 pg/mL (Abnormal) Range: 211-946 2-Jpk-043284:04 CBC WITH MANUAL DIFF Comments: PATIENT WAS FASTINGPERFORMED BY: Prosodic[address] [id number] BY: ProsodicLos Alamos Medical CenterIhsrwk9153 [facility] [id number] (21933) Immature Grans (Abs) 0.0 {x10E3/uL} (Normal) Range: [...] 3.77-5.28 WBC 7.6 {x10E3/uL} (Normal) Range: 3.4-10.8 5-Pjd-240437:04 LIPOPROTEIN, BLD, BY NMR Comments: PATIENT WAS FASTINGPERFORMED BY: BN [facility] [address] [id number] BY: CB [facility] Bkeczv3942 [facility] [id number] (08447) LP-IR Score 33 (Normal) Comments: INSULIN RESISTANCE [...] 1600 - 2000 Very High > 2000 85-Kfj-559636:36 BANNER (34215) Comments: PATIENT WAS FASTINGPERFORMED BY: [employer] COCritical access hospital [id number] Please note: SPRCS (Normal) Comments: Protein electrophoresis scan will follow via computer, mail, orcourier delivery. M-Navarro, % Not Observed % (Normal) Gamma Globulin, U 26.0 % (Normal) Beta Globulin, U 31.1 % (Normal) Pylqp-7-Sioffoci, U 9.8 % (Normal) Yymsk-8-Irsfghhc, U 2.5 % (Normal) Albumin, U 30.7 % (Normal) Protein,Total,Urine 35.3 mg/dL (Normal) 39-Yad-687681:36 SPEP (73023) Comments: PATIENT WAS FASTINGPERFORMED BY: [employer] Anand Nexalin TechnologyCritical access hospital [id number] Please note: SPRCS (Normal) Comments: Protein electrophoresis scan will follow via computer, mail, orcourier delivery. A/G Ratio 0.7 (Normal) Range: 0.7-1.7 Globulin, Total 4.2 g/dL (Abnormal) Range: 2.2-3.9 M-Navarro Not Observed g/dL (Normal) Gamma Globulin 1.0 g/dL (Normal) Range: 0.4-1.8 Beta Globulin 1.5 g/dL (Abnormal) Range: 0.7-1.3 Sxslf-6-Nruowwer 1.3 g/dL (Abnormal) Range: 0.4-1.0 Kqkmw-1-Cwxmwrmw 0.4 g/dL (Normal) Range: 0.0-0.4 Albumin 3.0 g/dL (Normal) Range: 2.9-4.4 07-Lzd-440540:36 Lipid Panel (95934) Comments: PATIENT WAS FASTINGPERFORMED BY: [employer]70 [facility] [id number] LDL/HDL Ratio 0.9 {ratio_units} (Normal) Range: 0.0-3.2 [...] Cholesterol, Total 153 mg/dL (Normal) Range: 100-199 32-Rhl-034118:36 Metabolic Panel, Comprehensive Comments: PATIENT WAS FASTINGPERFORMED BY: LabCoSaint Michael's Medical CenterKosbwl0565 [facility] [id number] (92125) ALT (SGPT) 18 [iU]/L (Normal) Range: 0-32 [...] MANUAL DIFF Comments: PATIENT WAS FASTINGPERFORMED BY: LabCoSaint Michael's Medical CenterHtozhj78[address] [place] [address] [id number] Information: DIFFICULT DRAW (10309) Immature Grans (Abs) 0.0 {x10E3/uL} (Normal) Range: [...] (LACTATE DEHYDROGENASE) Comments: PATIENT WAS FASTINGPERFORMED BY: LabCoSaint Michael's Medical CenterWxfonk1602 [facility] [id number] (54416) LDH 161 [iU]/L (Normal) Range: 119-226 35-Qmc-010877:36 Vitamin B-12 (cyanocobalamin) Comments: PATIENT WAS FASTINGPERFORMED BY: ProsodicSaint Michael's Medical CenterInauce9266 [facility] [id number] (26136) Vitamin B12 717 pg/mL (Normal) Range: 211-946 48-Egl-179827:36 Iron Binding Capacity (TIBC) Comments: PATIENT WAS FASTINGPERFORMED BY: [facility]conBeaumont Hospital6370 [facility] [id number] (00371) Iron Saturation 7 % (Abnormal) Range: 15-55 Iron, Serum 29 ug/dL (Normal) Range: 27-139 UIBC 386 ug/dL (Abnormal) Range: 118-369 Iron Bind.Cap.(TIBC) 415 ug/dL (Normal) Range: 250-450 :36 Ferritin (76505) Comments: PATIENT WAS FASTINGPERFORMED BY: [facility]Bea[facility] Hospital6370 [facility] [id number] Ferritin, Serum 43 ng/mL (Normal) Range: 15-150 :36 Folic Acid Serum (90128) Comments: PATIENT WAS FASTINGPERFORMED BY: ProsodicSaint Michael's Medical CenterLpgjmy5078 [facility] [id number] Folate (Folic Acid), Serum 11.3 ng/mL (Normal) Comments: A serum folate concentration of less than 3.1 ng/mL isconsidered to represent clinical deficiency. 95-Fbe-480111:36 TSH (89141) Comments: PATIENT WAS FASTINGPERFORMED BY: [facility]Be[facility]6370 [facility] [id number] TSH 0.530 {uIU/mL} (Normal) Range: 0.450-4.500 33-Mng-379197:36 T4, FREE (THYROXINE) (74702) Comments: PATIENT WAS FASTINGPERFORMED BY: [facility]conBeaumont Hospital6370 [facility] [id number] T4,Free(Direct) 1.90 ng/dL (Abnormal) Range: 0.82-1.77 52-Osy-429954:36 T3, FREE (TRIDOTHYRONINE) (75516) Comments: PATIENT WAS FASTINGPERFORMED BY: [facility] Niiulm1999 [facility] [id number] Triiodothyronine,Free,Serum 1.9 pg/mL (Abnormal) Range: 2.0-4.4 :23 CBC W/Diff, Automated Comments: [facility] [address] [place], [address] Absolute Lymph 2.62 {X10_3/ul} (Normal) [...] Range: 4.4-11.0 :23 Comprehensive Metabolic Profil Comments: [facility] [address] [place], [place], [id number] GAP 7 (Normal) Range: 5-15 CO2 27.0 [...] (Normal) Range: 70-110 :23 Free T3 Comments: [facility] [address] [place], [place], [phone] FREE T3 1.3 pg/mL (Abnormal) Range: 2.18-3.98 :23 Lipase Comments: [address] [place], [place], [id number] LIPASE 130 U/L (Normal) Range: 73-393 :23 T4 Free Direct Comments: [address] [place], [place], [address] T4 FREE DIRECT 1.45 ng/dL (Normal) Range: 0.76-1.46 :23 Thyroid Stim Hormone (TSH) Comments: [facility] [address] [place], [id number] TSH 17.10 {uIU/mL} (Abnormal) Range: 0.358-3.74 :22 CRP Comments: Order Date: 11/22/15Order Date: 11/22/15[facility] [address] [place], [id number] C-REACTIVE PROT 11.80 mg/L (Abnormal) Range: 0.0-3.0 Comments: C-Reactive Protein (CRP) provides useful information for thediagnosis, therapy and monitoring of inflammatory processesand associated diseases. For the evaluation of Relative Riskfor Cardiovascular Dise ase, a High Sensitivity CRP (HSCRP)should be ordered. :22 Erythrocyte Sed Rate Comments: Order Date: 11/22/15Interface Comments: Reason:Order Date: 11/22/15[facility] Hijhyvrecz5389 [address] [place], [id number] SED RATE 83 mm/h (Abnormal) Range: 0-30 2-Bti-015100:29 Culture, Wound Comments: [facility] [address] [place], [address] CUW See Note (Normal) Comments: Order Date: 11/22/15 Gram StainGram Stain 1+ Red Cell Stroma Rare Gram positive cocci Wound CulturePossible skin contamination, further Identification and sensitivity will be performed only by physi jamshid's request. ORGANISM 1: Coag Negative StaphAmount Growth Rare :11 CBC W/Diff, Automated Comments: [facility] Pjhkebretq2495 [place], [id number] Absolute Lymph 2.98 {X10_3/ul} (Normal) Range: 0.83-4.51 [...] 4.2-5.4 WBC 6.9 K/mm3 (Normal) Range: 4.4-11.0 47-Ilt-21343:11 Comprehensive Metabolic Profil Comments: Is Patient Taking Vitamins or Folic Acid Supplements? [facility] [address] [facility] [place], [place], [id number] GAP 7 (Normal) Range: 5-15 CO2 28.0 [...] Patient Taking Vitamins or Folic Acid Supplements? [facility] Zjkozoqprc[address] [facility] [address] [place], [address] CRP HIGH SENS 1.79 mg/L (Normal) Comments: Low Relative Risk of CVD <1.0 mg/L Average Relative Risk of CVD 1.0 - 3.0 mg/L High Relative Risk of CVD >3.0 mg/L :11 Erythrocyte Sed Rate Comments: [facility] Rx[address] [place], [address] SED RATE 37 mm/h (Abnormal) Range: 0-30 :11 Folates, (Folic Acid) Comments: Is Patient Taking Vitamins or Folic Acid Supplements? [facility] Yffclgaosw[address] [place], [address] FOLATES 30.20 ng/mL (Abnormal) Range: 3.1-17.5 :11 Lipid Profile Comments: Is Patient Taking Vitamins or Folic Acid Supplements? [facility] Tylxikkits[address] [place], [address] VLDL 16 mg/dL (Normal) Range: 5-40 LDL [...] :11 Vitamin B12 694 pg/mL (Normal) Comments: [facility] [address]biwy[address] [place], [address] Range: 211-911 :11 Vitamin D,25 Hydroxy Comments: [facility] Msxmacaebt[address] [place], [address] Vitamin D 25-OH > 150.0 ng/mL (Normal) [...] is nointerference with Vitamin D test results. 69-Fdl-25286:01 Protein+Creatinine Ratio,Urine Comments: [facility] [address]nlwx[address] [place], [phone] PROT:CRE RATIO 276 {mg/g_CRE} (Abnormal) Range: 0-200 PROTEIN,UR.RAN. 60.7 mg/dL (Abnormal) UR CREAT 220.00 mg/dL (Normal) :01 Renal Profile Comments: [facility] J[address]xpwlgffx[address] [place], [id number] CO2 30.0 mmol/L (Normal) Range: 21.0-32.0 CL [...] 7-18 GLU 97 mg/dL (Normal) Range: 70-110 4-Gwh-891875:20 Urinalysis, Complete Comments: Order Date: 09/23/15Has pt arrived? YHow was Urine Obtained? BUCKET WASH OPERATOR TO SPECIFYWSum[facility] [address]aitmic[address] [place], [phone] YEAST-URINE 1+ {/hpf} (Normal) MUCUS, URINE 0 [...] CLARITY Sl. Cloudy (Normal) COLOR Yellow (Normal) 8-Vad-075068:30 CBC W/Diff, Automated Comments: [facility] [address]ofg[address] [place], [address] Absolute Lymph 2.14 {X10_3/ul} (Normal) Range: 0.83-4.51 [...] 4.2-5.4 WBC 9.9 K/mm3 (Normal) Range: 4.4-11.0 9-Awk-385876:30 Comprehensive Metabolic Profil Comments: [facility] [address] [place], [place], [address] GAP 9 (Normal) Range: 5-15 CO2 20.0 [...] 7-18 GLU 107 mg/dL (Normal) Range: 70-110 6-Iht-404381:30 Lipase Comments: [facility] [address]orq[address] [place], [address] LIPASE 542 U/L (Abnormal) Range: 73-393 :45 Vitamin B-12 (cyanocobalamin) Comments: PATIENT WAS FASTINGPERFORMED BY: [facility]6370 [facility] [id number] (37093) Vitamin B12 998 pg/mL (Abnormal) Range: 211-946 :45 METABOLIC PANEL, COMPREHENSIVE Comments: PATIENT WAS FASTINGPERFORMED BY: [facility]Bea[facility] Hospital6370 [facility] [id number] (11134) ALT (SGPT) 48 [iU]/L (Abnormal) Range: 0-32 [...] auto diff Comments: PATIENT WAS FASTINGPERFORMED BY: LabCoSaint Michael's Medical CenterUankoz9653 [facility] [id number] Information: [id number] (92081) Immature Grans (Abs) 0.0 {x10E3/uL} (Normal) Range: [...] 8.3 {x10E3/uL} (Normal) Range: 3.4-10.8 :45 TSH (42509) Comments: PATIENT WAS FASTINGPERFORMED BY: LabCoSaint Michael's Medical CenterJgazpi6654 [facility] [id number] TSH 25.460 {uIU/mL} (Abnormal) Range: 0.450-4.500 16-Otm-065338:16 Renal Profile Comments: [facility] [address] [place], [place], [phone] CO2 23.0 mmol/L (Normal) Range: 21.0-32.0 CL [...] 7-18 GLU 108 mg/dL (Normal) Range: 70-110 41-Jfh-400535:07 Culture, Urine Comments: [facility] Byyyhovthb[address] [place], [place], [phone] CUUR See Note (Normal) Comments: Urine CultureORGANISM 1: Streptococcus mitis/ oralisColony Count 50,000-80,000 Streptococcus mitis/ oralis: REACTION Ampicillin $ <=0.25 S Benzylpenicillin NF 8 R Ceftriaxone (other dx) $ <=0.12 S Levofloxacin $ 8 R Tetracycline NF >=16 R Vancomycin $ 0.25 S(NF) indicates non-formulary drug at [facility]. Approval by Infectious Disease Specialist required b efore non-formulary drugs may be ordered and/or dispensed. * CLSI guidelines does not recommend testing of cephalosporins. This interpretation is deduced from Beta-lactam/penicillin results. 89-Lkw-79536:58 CALCIFIDIOL (99451) VIT D 25 Comments: PATIENT NOT FASTINGPERFORMED BY: [facility]6370 [facility] [id number] Vitamin D, 25-Hydroxy 43.7 ng/mL (Normal) Range: 30.0-100.0 Comments: Vitamin D deficiency has been defined by the [place] ofMedicine and an Endocrine Society practice guideline as alevel of serum 25-OH vitamin D less than 20 ng/mL (1,2).The Endocrine Society went on to further define vitamin Dinsufficiency as a level between 21 and 29 ng/mL (2).1. IOM ([place] of Medicine). 2010. Dietary reference intakes for calcium and D. [place]: The National Academies Press.2. Justin MF, Jazmyn NC, Aniya CANO, et al. Evaluation, treatment, and prevention of vitamin D deficiency: an Endocrine Society clinical practice guideline. JCEM. 2010; 96(7):1911-30. :58 METABOLIC PANEL, Comments: PATIENT NOT FASTINGPERFORMED BY: [facility] Cosvoo0690 [facility] [id number] Information: [id number] DIFFICULT D RAW; apt. 4-25 COMPREHENSIVE (30281) ALT (SGPT) 11 [iU]/L (Normal) Range: 0-32 [...] Panel, Basic Comments: PATIENT NOT FASTINGPERFORMED BY: [employer]70 [facility] [id number] Information: [id number] (76321) Calcium, Serum 7.8 mg/dL (Abnormal) Range: 8.7-10.3 [...] (Abnormal) Range: 65-99 Comments: Client Requested Flag 24-Zhk-230393:23 Urinalysis, Office (85603) UA - LEUKOCYTE ESTERASE Trace (Normal) UA - NITRITE Negative (Normal) URINE UROBILINGN EVY TIMED Normal mg/dL (Normal) UA - PROTEIN 30 mg/dL (Normal) UA - PH 6.0 (Normal) UA - BLOOD Negative (Normal) UA - SPECIFIC GRAVITY 1.025 (Normal) UA - KETONES Negative mg/dL (Normal) UA - BILIRUBIN Negative (Normal) UA - GLUCOSE Negative (Normal) 7-Lgh-181531:01 Metabolic Panel, Comments: PATIENT NOT FASTINGPERFORMED BY: [facility]odicLos Alamos Medical CenterUqsdmp9847 [facility] [id number] Information: [id number] Comprehensive (17172) ALT (SGPT) 52 [iU]/L (Abnormal) Range: 0-32 [...] cells when received.This may adversely affect serumChemistries. 33-Tzx-820190:30 Metabolic Panel, Comments: PATIENT NOT FASTINGPERFORMED BY: LabCoSaint Michael's Medical CenterGgfmtj8775 [facility] [id number] Information: [id number] Comprehensive (08212) ALT (SGPT) 9 [iU]/L (Normal) Range: 0-32 [...] (Prothrobim Time) Comments: PATIENT NOT FASTINGPERFORMED BY: LabCoSaint Michael's Medical CenterFydjtz8000 [facility] [id number] Information: [id number] (22565) Prothrombin Time 12.6 {sec} (Abnormal) Range: 9.1-12.0 INR 1.2 (Normal) Range: 0.8-1.2 Comments: Reference interval is for non-anticoagulated patients. . Suggested INR therapeutic range for Vitamin K anta gonist therapy: Standard Dose (moderate intensity therapeutic range): 2.0 - 3.0 Higher intensity therapeutic range 2.5 - 3.5 63-Okz-255939:50 Urinalysis, Office (76761) UA - LEUKOCYTE ESTERASE Trace (Normal) UA - NITRITE Negative (Normal) URINE UROBILINGN EVY TIMED Normal mg/dL (Normal) UA - PROTEIN 100 mg/dL (Normal) UA - PH 6.0 (Normal) UA - BLOOD Non Hemolyzed Trace (Normal) UA - SPECIFIC GRAVITY 1.030 (Abnormal) UA - KETONES Negative mg/dL (Normal) UA - BILIRUBIN Negative (Normal) UA - GLUCOSE Negative (Normal) 93-Ifs-489333:26 URINE CARMEN CULTURE (EVY Comments: PATIENT NOT FASTINGPERFORMED BY: [employer]70 QudiniCritical access hospital [id number] Information: [place] [id number] [place] COUNT) (89128) Result 1 NG36 (Normal) Comments: No growth in 36 - 48 hours. Urine Culture,Comprehensive Final report (Normal) 5-Kgm-576869:08 Vitamin B-12 (cyanocobalamin) Comments: in six months (approximately); PATIENT WAS FASTINGPERFORMED BY: Loyalzoo6370 QudiniCritical access hospital [id number] (54415) Vitamin B12 433 pg/mL (Normal) Range: 211-946 8-Unu-450593:08 CBC W/AUTO DIFF WBC Comments: in six months (approximately); PATIENT WAS FASTINGPERFORMED BY: [employer]oyal[employer]oo6370 [facility] [id number] Information: [id number] (92298) Immature Grans (Abs) 0.0 {x10E3/uL} (Normal) Range: [...] 3.77-5.28 WBC 5.2 {x10E3/uL} (Normal) Range: 3.4-10.8 7-Pzh-316558:08 TSH (15421) Comments: in six months (approximately); PATIENT WAS FASTINGPERFORMED BY: LabCoSaint Michael's Medical CenterVihkok8168 [facility] [id number] TSH 0.802 {uIU/mL} (Normal) Range: 0.450-4.500 16-Keu-916142:38 METABOLIC PANEL, Comments: in six months (approximately); PATIENT NOT FASTINGPERFORMED BY: LabCoSaint Michael's Medical CenterRmebee8826 [facility] [id number] Information: [id number] COMPREHENSIVE (72411) ALT (SGPT) 10 [iU]/L (Normal) Range: 0-32 [...] Glucose, Serum 91 mg/dL (Normal) Range: 65-99 8-Rtx-712178:08 LIPID PANEL (16551) Comments: in six months (approximately); PATIENT WAS FASTINGPERFORMED BY: FOC[facility] RESEARCHAffinity Health Partners [id number]; apt. 16 LDL/HDL Ratio 0.8 {ratio_units} (Normal) [...] Cholesterol, Total 205 mg/dL (Abnormal) Range: 100-199 5-Ehw-792052:08 PT (Prothrobim Time) (79316) Comments: today; PATIENT WAS FASTINGPERFORMED BY: [facility] [id number]; inr not need addressed patient on Eliqus Prothrombin Time 11.0 {sec} (Normal) Range: 9.1-12.0 INR 1.1 (Normal) Range: 0.8-1.2 Comments: Reference interval is for non-anticoagulated patients. . Suggested INR therapeutic range for Vitamin K anta gonist therapy: Standard Dose (moderate intensity therapeutic range): 2.0 - 3.0 Higher intensity therapeutic range 2.5 - 3.5 3-Hsx-523969:08 POTASSIUM SERUM (93951) Comments: today; PATIENT WAS FASTINGPERFORMED BY: [employer] Majhxx9475 bluepulseAffinity Health Partners [id number] Potassium, Serum 4.4 mmol/L (Normal) Range: 3.5-5.2 50-Sxy-22336:41 Comp. Metabolic Panel (14) Comments: PATIENT NOT FASTINGPERFORMED BY: [employer] [facility] Xoqiql4784 [facility] [id number] Information: [id number] DIFFICULT D RAW ALT (SGPT) 10 [iU]/L [...] Microscopic Examination Comments: PATIENT NOT FASTINGPERFORMED BY: [facility]conBeaumont Hospital6370 [facility] [id number] Bacteria Few (Normal) Mucus Threads Present (Normal) Epithelial Cells (non renal) 0-10 {/hpf} (Normal) Range: 0 - 10 RBC 0-2 {/hpf} (Normal) Range: 0 - 2 WBC >30 {/hpf} (Abnormal) Range: 0 - 5 :41 Urinalysis, Complete Comments: PATIENT NOT FASTINGPERFORMED BY: [facility]6370 [facility] [id number] Microscopic Examination See below: (Normal) Comments: Microscopic was indicated and was performed. Nitrite, Urine Negative (Normal) Urobilinogen,Semi-Qn 0.2 mg/dL (Normal) Range: 0.0-1.9 Bilirubin Negative (Normal) Occult Blood Negative (Normal) Ketones Negative (Normal) Glucose Negative (Normal) Protein Trace (Normal) WBC Esterase 2+ (Abnormal) Appearance Cloudy (Abnormal) Urine-Color Yellow (Normal) pH 6.0 (Normal) Range: 5.0-7.5 Specific Gypsum 1.015 (Normal) Range: 1.005-1.030 73-Bgg-304974:49 Prothrombin Time (PT) Comments: PATIENT NOT FASTINGPERFORMED BY: [facility]6370 [facility] [id number] Information: [id number] Prothrombin Time 28.9 {sec} (Abnormal) Range: 9.1-12.0 INR 2.7 (Abnormal) Range: 0.8-1.2 Comments: Reference interval is for non-anticoagulated patients. . Suggested INR therapeutic range for Vitamin K anta gonist therapy: Standard Dose (moderate intensity therapeutic range): 2.0 - 3.0 Higher intensity therapeutic range 2.5 - 3.5 05-Tgc-195378:49 Prothrombin Time (PT) Comments: PATIENT NOT FASTINGPERFORMED BY: [facility]6370 [facility] [id number] Information: [id number] Prothrombin Time 31.0 {sec} (Abnormal) Range: 9.1-12.0 INR 2.8 (Abnormal) Range: 0.8-1.2 Comments: Reference interval is for non-anticoagulated patients. . Suggested INR therapeutic range for Vitamin K anta gonist therapy: Standard Dose (moderate intensity therapeutic range): 2.0 - 3.0 Higher intensity therapeutic range 2.5 - 3.5 :28 Eosinophil, Urine (65240) Comments: PATIENT NOT FASTINGPERFORMED BY: [facility] Czkpou7679 [facility] [id number] Information: [id number] Eosinophil, Urine No Eosinophils Seen % Comments: <5% few or none seenReceived at room temperature;interpret result with caution. (Normal) :28 Eosinophil, Urine (50827) Comments: PATIENT NOT FASTINGPERFORMED BY: LabCoSaint Michael's Medical CenterPjcohk8529 [facility] [id number] Information: [id number] Eosinophil, Urine No Eosinophils Seen % Comments: <5% few or none seenReceived at room temperature;interpret result with caution. (Normal) :54 Basic Metabolic Profile (BMP) Comments: Test performed at:[facility] [address] [facility] [place] [address] GAP 5 (Normal) Range: 5-15 CO2 27.0 [...] :54 Microalb:Creat Ratio,Random UR Comments: Test performed at:[facility] [address] [facility] [place] [address] MALB:CREAT 44.5 {mg/g_CRE} (Abnormal) MICROALBUMIN,UR 52.7 mg/L (Normal) UR CREAT 118.2 mg/dL (Normal) 21-May-20147:54 Urinalysis, Routine (Dipstick) Comments: How was Urine Obtained? CLEAN CATCHTest performed at:[facility] [address] [place] [address] [place] ESTERASE 100 /ul (Abnormal) OCCULT BLOOD-UR 10 /ul (Abnormal) NITRITE UR Negative (Normal) UROBILI Normal mg/dL (Normal) PROT DIPSTX 15 mg/dL (Abnormal) pH UR 5.0 (Normal) Range: 5.0 - 8.0 SP.GR. DIPSTX 1.020 (Normal) Range: 1.002-1.030 KETONE UR Negative mg/dL (Normal) BILIRUBIN URINE Negative mg/dL (Normal) GLUCOSE, UR Normal mg/dL (Normal) CLARITY Sl. Cloudy (Normal) COLOR Yellow (Normal) 58-Fdk-437315:07 Eosinophil, Urine (92352) Comments: PATIENT NOT FASTINGPERFORMED BY: [employer] [facility] [id number] Information: [id number] Eosinophil, Urine 5 % (Normal) Comments: <5% few or none seenReceived at room temperature;interpret result with caution. 27-Fkq-640037:10 MICROALBUMIN: CREATININE RATIO Comments: recheck in 6 weeks; PATIENT NOT FASTINGPERFORMED BY: [employer] [facility] [id number] (51156) AND (12146) Microalb/Creat Ratio 92.2 {mg/g_creat} (Abnormal) Range: 0.0-30.0 Microalbumin, Urine 180.9 ug/mL (Abnormal) Range: 0.0-17.0 Creatinine, Urine 196.2 mg/dL (Normal) Range: 15.0-278.0 32-Rsg-276229:10 Metabolic Panel, Basic Comments: recheck in 6 weeks; PATIENT NOT FASTINGPERFORMED BY: [employer] [facility] [id number] Information: [id number] (87846) Calcium, Serum 9.2 mg/dL (Normal) Range: 8.7-10.3 [...] 89 mg/dL (Normal) Range: 65-99 :21 CALCIFIDIOL (31264) VIT D 25 Comments: PATIENT NOT FASTINGPERFORMED BY: [employer]6[facility] [id number] Vitamin D, 25-Hydroxy 35.5 ng/mL (Normal) Range: 30.0-100.0 Comments: Vitamin D deficiency has been defined by the [place] ofMedicine and an Endocrine Society practice guideline as alevel of serum 25-OH vitamin D less than 20 ng/mL (1,2).The Endocrine Society went on to further define vitamin Dinsufficiency as a level between 21 and 29 ng/mL (2).1. IOM ([place] of Medicine). 2010. Dietary reference intakes for calcium and D. [place]: The National Academies Press.2. Justin MF, Jazmyn NC, Aniya CANO, et al. Evaluation, treatment, and prevention of vitamin D deficiency: an Endocrine Society clinical practice guideline. JCEM. 2010; 96(7):1911-30. :22 Total Protein,24 Hour Urine Comments: PATIENT NOT FASTINGPERFORMED BY: [facility] Wibqyy2174 [facility] [id number] (11797) Prot,24hr calculated 196.5 {mg/24_hr} (Abnormal) Range: 30.0-150.0 Protein,Total,Urine 39.3 mg/dL (Abnormal) Range: 0.0-15.0 4-Axn-438065:22 CREATININE CLEARANCE Comments: PATIENT NOT FASTINGPERFORMED BY: CRISTA [facility] Xzxdff6492 [facility] [id number] Information: SRC: [id number] START- 4@630AM YOHAN Peres (11009) Creatinine Clearance 29 mL/min (Abnormal) Range: 88-128 Comments: The above range is based on 1.73 square meter average body surfacearea. Creatinine, Ur 24hr 544.0 {mg/24_hr} (Abnormal) Range: 800.0-1800.0 Creatinine, Urine 108.8 mg/dL (Normal) Range: 15.0-278.0 eGFR If Africn Am 46 mL/min/1.73 (Abnormal) eGFR If NonAfricn Am 40 mL/min/1.73 (Abnormal) Creatinine, Serum 1.31 mg/dL (Abnormal) Range: 0.57-1.00 8-Zsi-848242:21 PT (Prothrobim Time) Comments: standing order; PATIENT NOT FASTINGPERFORMED BY: [facility] [id number] Information: [id number] (94915) Prothrombin Time 26.3 {sec} (Abnormal) Range: 9.1-12.0 INR 2.4 (Abnormal) Range: 0.8-1.2 Comments: Reference interval is for non-anticoagulated patients. . Suggested INR therapeutic range for Vitamin K anta gonist therapy: Standard Dose (moderate intensity therapeutic range): 2.0 - 3.0 Higher intensity therapeutic range 2.5 - 3.5 32-Nkj-840253:36 Request Problem Comments: PATIENT NOT FASTINGPERFORMED BY: [place] [id number] [facility] [id number] 38-Pkg-803547:23 Vitamin B-12 (cyanocobalamin) Comments: PATIENT NOT FASTINGPERFORMED BY: [facility] [id number] (41727) :23 TSH (42135) Comments: PATIENT NOT FASTINGPERFORMED BY: [facility] [id number] :23 PT (Prothrobim Time) (67633) Comments: INR standing order do today also; PATIENT NOT FASTINGPERFORMED BY: [facility] [id number] INR 1.8 (Abnormal) Range: 0.8-1.2 Comments: Reference interval is for non-anticoagulated patients. . Suggested INR therapeutic range for Vitamin K anta gonist therapy: Standard Dose (moderate intensity therapeutic range): 2.0 - 3.0 Higher intensity therapeutic range 2.5 - 3.5 Prothrombin Time 18.4 {sec} (Abnormal) Range: 9.1-12.0 :23 METABOLIC PANEL, COMPREHENSIVE Comments: PATIENT NOT FASTINGPERFORMED BY: FinconRenee Ville 9276670 [facility] [id number] (48492) ALT (SGPT) 13 [iU]/L (Normal) Range: 0-32 [...] Glucose, Serum 75 mg/dL (Normal) Range: 65-99 32-Nmj-762702:23 LIPID PANEL (83563) Comments: PATIENT NOT FASTINGPERFORMED BY: [employer]6370 [facility] [id number] LDL/HDL Ratio 1.1 {ratio_units} (Normal) Range: 0.0-3.2 LDL Cholesterol Calc 92 mg/dL (Normal) Range: 0-99 HDL Cholesterol 82 mg/dL (Normal) Comments: According to ATP-III Guidelines, HDL-C >59 mg/dL is considered anegative risk factor for CHD. VLDL Cholesterol Alesha 38 mg/dL (Normal) Range: 5-40 Cholesterol, Total 212 mg/dL (Abnormal) Range: 100-199 Triglycerides 192 mg/dL (Abnormal) Range: 0-149 82-Skx-872586:23 CBC WITH MANUAL DIFF Comments: PATIENT NOT FASTINGPERFORMED BY: [facility] Wboywl9165 [facility] [id number] Information: [id number], [id number]: [id number] (51245) Immature Grans (Abs) 0.0 {x10E3/uL} (Normal) Range: [...] 3.77-5.28 WBC 6.5 {x10E3/uL} (Normal) Range: 3.4-10.8 86-Mtf-713216:23 Sed Rate Erythrocyte (38392) Comments: PATIENT NOT FASTINGPERFORMED BY: [employer] [facility] Otnvyj9557 [facility] [id number] Sedimentation Rate-Westergren 16 mm/h (Normal) Range: 0-40 77-Xes-629718:50 CBC with manual diff Comments: recheck in 4 weeks; PATIENT NOT FASTINGPERFORMED BY: [facility] [address] [id number] Information: ADD [id number] AND DRAW FEE 99 7637 (81246) Immature Grans (Abs) 0.0 {x10E3/uL} (Normal) Range: [...] 3.77-5.28 WBC 10.5 {x10E3/uL} (Normal) Range: 3.4-10.8 53-Kiy-356672:50 Sed Rate Erythrocyte (10722) Comments: re check in 4 weeks; PATIENT NOT FASTINGPERFORMED BY: [employer] [facility] [id number] Sedimentation Rate-Westergren 39 mm/h (Normal) Range: 0-40 :48 PREALBUMIN (45042) Comments: PATIENT NOT FASTINGPERFORMED BY: [employer] Jktovm2426 Anand Nex[facility] TechnologyCritical access hospital [id number] Prealbumin 23 mg/dL (Normal) Range: 20-40 :48 Magnesium (02559) Comments: PATIENT NOT FASTINGPERFORMED BY: [employer]70 [facility]udiniCritical access hospital [id number] Magnesium, Serum 1.8 mg/dL (Normal) Range: 1.6-2.6 :48 Metabolic Panel, Comments: PATIENT NOT FASTINGPERFORMED BY: Prosodic Keelvar [facility] [id number] Information: [id number] [facility] (16502) ALT (SGPT) 12 [iU]/L (Normal) Range: 0-32 [...] Glucose, Serum 86 mg/dL (Normal) Range: 65-99 12-Gzo-921443:15 CBC With Differential/Platelet Comments: PATIENT WAS FASTINGPERFORMED BY: CB [facility] Qgnmyh7585 [facility] [id number] BY: BN [facility] [address] [id number] Immature Grans (Abs) 0.0 {x10E3/uL} (Normal) Range: [...] 3.77-5.28 WBC 5.9 {x10E3/uL} (Normal) Range: 4.0-10.5 37-Snb-138363:15 Comp. Metabolic Panel Comments: PATIENT WAS FASTINGPERFORMED BY: CB [facility] Yvsoml8953 [facility] [id number] BY: BN [facility] [address] [id number] (14) ALT (SGPT) 7 [iU]/L (Normal) Range: [...] 16.5 umol/L Comments: PATIENT WAS FASTINGPERFORMED BY: [facility]6370 [facility] [id number] BY: Fincon[address] [id number] :15 Plasma (Abnormal) Range: 0.0-15.0 87-Isw-114727:15 Lipid Panel With LDL/HDL Comments: PATIENT WAS FASTINGPERFORMED BY: [employer] Z[address]irc[address] [place] [address] [id number] BY: Prosodic[address] [id number] Ratio LDL/HDL Ratio 0.7 {ratio_units} Range: 0.0-3.2 [...] nmol/L (Normal) Comments: PATIENT WAS FASTINGPERFORMED BY: [employer]70 [facility] [id number] BY: [address] [id number] 310:15 Serum Range: 73-376 Comments: The reference range for methylmalonic acid has been set at +3sd abovethe mean for healthy blood bank donors. In the clinical assessment ofpatients with megaloblastic anemias a cutoff of +3sd provides gr eaterspecificity in the diagnosis of the vitamin deficiency states,despite the sacrifice of some sensitivity. 11-Keo-219663:15 Prothrombin Time (PT) Comments: PATIENT WAS FASTINGPERFORMED BY: [employer]70 [facility] [id number] BY: Prosodic[address] [id number] Prothrombin Time 20.5 {sec} (Abnormal) Range: 9.1-12.0 INR 2.0 (Abnormal) Range: 0.8-1.2 Comments: Reference interval is for non-anticoagulated patients. . Suggested INR therapeutic range for Vitamin K anta gonist therapy: Standard Dose (moderate intensity therapeutic range): 2.0 - 3.0 Higher intensity therapeutic range 2.5 - 3.5 TSH 0.706 {uIU/mL} Comments: PATIENT WAS FASTINGPERFORMED BY: [employer]70 [facility] [id number] BY: [address] [id number] :15 (Normal) Range: 0.450-4.500 80-Xfl-409381:15 Vitamin B12 and Folate Comments: PATIENT WAS FASTINGPERFORMED BY: [employer]70 [facility] [id number] BY: Fincon[address] [id number] Folate (Folic Acid), >19.9 ng/mL (Normal) Comments: A serum folate concentration of less than 3.1 ng/mL isconsidered to represent clinical deficiency. Serum Vitamin B12 561 pg/mL (Normal) Range: 211-946 Vitamin D, 49.7 ng/mL (Normal) Comments: PATIENT WAS FASTINGPERFORMED BY: [facility] [id number] BY: [address] [id number] :15 25-Hydroxy Range: 30.0-100.0 Comments: Vitamin D deficiency has been defined by the [place] ofMedicine and an Endocrine Society practice guideline as alevel of serum 25-OH vitamin D less than 20 ng/mL (1,2).The Endocrine Society went on to further define vitamin Dinsufficiency as a level between 21 and 29 ng/mL (2).1. IOM ([place] of Medicine). 2010. Dietary reference intakes for calcium and D. [place]: The National Academies Press.2. Justin MF, Jazmyn NC, Rafael-Stan CANO, et al. Evaluation, treatment, and prevention of vitamin D deficiency: an Endocrine Society clinical practice guideline. JCEM. 2010; 96(7):1911-30. 66-Bcu-555962:20 PT (Prothrobim Time) (06326) Comments: standing order; PATIENT NOT FASTINGPERFORMED BY: [facility] [id number] Prothrombin Time 28.6 {sec} (Abnormal) Range: 9.1-12.0 INR 2.8 (Abnormal) Range: 0.8-1.2 Comments: Reference interval is for non-anticoagulated patients. . Suggested INR therapeutic range for Vitamin K anta gonist therapy: Standard Dose (moderate intensity therapeutic range): 2.0 - 3.0 Higher intensity therapeutic range 2.5 - 3.5 81-Puv-701405:30 CBC With Differential/Platelet Comments: PERFORMED BY: [facility] [id number] BY: Prosodic[address] [id number] Information: PER [facility] 03-07-12 RANDOM U Immature Grans [...] 3.77-5.28 WBC 9.1 {x10E3/uL} (Normal) Range: 4.0-10.5 60-Ipj-888927:30 Chromium, Urine Comments: PERFORMED BY: CRISTA [employer] Muemac7230 [facility] [id number] BY: Prosodic[address] [id number] Chromium/Creat Ratio 0.2 {ug/g_creat} Range: 0.0-4.9 (Normal) Comments: Environmental Exposure: 0.0 - 4.9 Occupational Exposure: RAEGAN 25.0 Chromium, Urine 0.3 ug/L (Normal) Range: 0.1-2.0 Comments: Detection Limit = 0.10 20-Dec-201 Ferritin, Serum 64 ng/mL (Normal) Comments: PERFORMED BY: [facility]odicSaint [facility] Medical CenterYezvlk10[address] [place] [address] [id number] BY: [address] [id number] 214:30 Range: 13-150 20-Dec-201 Homocyst(e)ine, Plasma 32.2 umol/L Comments: PERFORMED BY: Prosodic[address] [id number] BY: [address] [id number] 214:30 (Abnormal) Range: 0.0-15.0 20-Dec-201 Iron, Serum 38 ug/dL (Normal) Comments: PERFORMED BY: [facility]odicSaint [facility]'s Medical CenterEbckoa8030 [facility] [id number] BY: [address] [id number] 214:30 Range: 35-155 20-Dec-201 Magnesium, Serum 1.8 mg/dL (Normal) Comments: PERFORMED BY: Prosodic[address] [id number] BY: [address] [id number] 214:30 Range: 1.6-2.6 20-Dec-201 Methylmalonic Acid, 525 nmol/L (Abnormal) Comments: PERFORMED BY: Prosodic[address] [id number] BY: [address] [id number] 214:30 Serum Range: 73-376 Comments: Verified by repeat analysisThe reference range for methylmalonic acid has been set at +3sd abovethe mean for healthy blood bank donors. In the clinical assessment ofpatients with megaloblastic anemi as a cutoff of +3sd provides greaterspecificity in the diagnosis of the vitamin deficiency states,despite the sacrifice of some sensitivity. Phosphorus, Serum 3.6 mg/dL (Normal) Comments: PERFORMED BY: [facility] [facility] [id number] BY: [address] [id number] 214:30 Range: 2.5-4.5 PTH, Intact 32 pg/mL (Normal) Comments: PERFORMED BY: [facility] [id number] BY: [address] [id number] 214:30 Range: 15-65 Sedimentation 21 mm/h (Normal) Comments: PERFORMED BY: [employer]70 [facility] [id number] BY: [address] [id number] 214:30 Rate-Westergren Range: 0-40 Vitamin A, Serum 88 ug/dL (Abnormal) Comments: PERFORMED BY: Prosodic Keelvar [facility] [id number] BY: [address] [id number] 214:30 Range: 18-77 41-Yao-386258:30 Vitamin B12 and Folate Comments: PERFORMED BY: Prosodic Steppa1532 [facility] [id number] BY: [address] [id number] Folate (Folic Acid), >19.9 ng/mL (Normal) Comments: A serum folate concentration of less than 3.1 ng/mL isconsidered to represent clinical deficiency. Serum Vitamin B12 326 pg/mL (Normal) Range: 211-946 Vitamin D, 21.0 ng/mL Comments: PERFORMED BY: [employer]6370 [facility] [id number] BY: Prosodic[address] [id number] :30 25-Hydroxy (Abnormal) Range: 30.0-100.0 Comments: Vitamin D deficiency has been defined by the [place] ofUpper [facility] Centercine and an Endocrine Society practice guideline as alevel of serum 25-OH vitamin D less than 20 ng/mL (1,2).The Endocrine Society went on to further define vitamin Dinsufficiency as a level between 21 and 29 ng/mL (2).1. IOM ([place] of Medicine). 2010. Dietary reference intakes for calcium and D. [place]: The National Academies Press.2. Justin MF, Jazmyn FOSTER, Aniya CANO, et al. Evaluation, treatment, and prevention of vitamin D deficiency: an Endocrine Society clinical practice guideline. JCEM. 2010; 96(7):1911-30. :30 Zinc, Urine Comments: PERFORMED BY: N[facility]ocketlin6370 [facility] [id number] BY: Prosodic[address] [id number] Zinc/Creat. Ratio 497 {ug/g_creat} (Normal) Range: 100-900 Creatinine(Telecom Network Manager),U 1.95 g/L (Normal) Range: 0.30-3.00 Comments: Detection [...] Sarkar D.O.December 05, 2011 at 7:36:04 PM [id number] Signed IF/IF If you are the referring physician and would like to consult with theradiologist who provided this interpretation, please contact Fabian Sarkar D.O.at [phone]. If this radiologist is unavailable, you will be directedto another radiologist to assist. If you are a patient with a question regarding this report, pleasecontactyour referring physician directly. Professional Interpretation Provided By: [employer], Phone , Thes e documents contain legally [...] on 12/05/111942 Sign by: Fabian Sarkar DO 9-Uuq-386215:10 Metabolic Panel, Comprehensive Comments: copy to Dr. shukla; PATIENT NOT FASTINGPERFORMED BY: LabCoSaint Michael's Medical CenterEjlaii6021 [facility] [id number] (85058) ALT (SGPT) 16 [iU]/L (Normal) Range: 0-40 [...] Glucose, Serum 85 mg/dL (Normal) Range: 65-99 8-Bwk-085556:10 CBC, Platelets & Auto Diff Comments: PATIENT NOT FASTINGPERFORMED BY: FinconCoSaint Michael's Medical CenterLpofsz4395 [facility] [id number] Information: [id number] (77507) Immature Grans (Abs) 0.0 {x10E3/uL} (Normal) Range: [...] (Normal) Range: 4.0-10.5 :10 Sed Rate Erythrocyte (54066) Comments: PATIENT NOT FASTINGPERFORMED BY: LabCoSaint Michael's Medical CenterNxqkfc0128 [facility] [id number] Sedimentation Rate-Westergren 53 mm/h (Abnormal) Range: 0-40 :14 Basic Metabolic Panel (8) Comments: PERFORMED BY: Octavianlin6370 [facility] [id number] Calcium, Serum 9.9 mg/dL (Normal) Range: 8.6-10.2 [...] Protein Electro, Random Urine Comments: PERFORMED BY: ProsodicSaint Michael's Medical CenterAgfwbk8336 [facility] [id number] Please note: SPRCS (Normal) Comments: Protein electrophoresis scan will follow via computer, mail, orcourier delivery. Qjvii-0-Urpodmcl, U 8.9 % (Normal) Beta Globulin, U 25.6 % (Normal) Gamma Globulin, U 26.9 % (Normal) M-Navarro, % Not Observed % (Normal) Albumin, U 36.2 % (Normal) Zckvi-9-Mmnmcmdy, U 2.5 % (Normal) Protein,Total,Urine 40.0 mg/dL (Abnormal) Range: 0.0-15.0 54-Uwf-750285:14 Protein Electro.,S Comments: PERFORMED BY: CRISTA [facility] Ssheoq3023 [facility] [id number] Please note: SPRCS (Normal) Comments: Protein electrophoresis scan will follow via computer, mail, orcourier delivery. 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.Performed At: [facility] [place], [place] [id number] RIBA RESULT <TEST NOT PERFORMED> (Normal) :10 [...] Indication: Low back pain Planned Observations URINALYSIS (56016)Indication: Chronic kidney disease, stage III (moderate) On: 80-Fpi-117248:36 Request MICROALBUMIN: CREATININE RATIO (36230) AND (37375)Indication: Chronic kidney disease, stage III (moderate) On: 10-Cul-470967:35 Request METABOLIC PANEL, COMPREHENSIVE (90266)Indication: Chronic kidney disease, stage III (moderate) On: 3-Ufg-342061:59 Request CALCIFIDIOL (69273) VIT D 25Indication: Vitamin D deficiency On: 8-Zvy-963592:59 Request CARMEN CULTURE-OTHER (60312)Indication: Vaginal discharge On: 86-Gts-158333:46 Request Comments: vagina BACT CULTURE ANY-ANAEROBIC (38248)Indication: Vaginal discharge On: 14-Cpi-932276:13 Request Comments: of vaginal fluid PHOSPHORUS (06709)Indication: Chronic kidney disease, stage III (moderate) On: 97-Iha-758238:26 Request Comments: do before November office visit PHOSPHORUS (40222)Indication: Malnutrition On: 23-Aug-20179:21 Request Phosphorus (65272)Indication: Malnutrition On: :42 Request Magnesium (63367)Indication: Malnutrition On: :42 Request C-Reactive Protein (31703)Indication: Osteomyelitis of pelvic region On: 09-Vsq-729796:04 Request METABOLIC PANEL, COMPREHENSIVE (79249)Indication: Benign essential HTN On: :52 Request URIC ACID BLOOD (63306)Indication: Abnormal blood chemistry On: :52 Request Iron (57784)Indication: Anemia On: 54-Hct-647805:44 Request Iron Binding Capacity (TIBC) (48492)Indication: Anemia, chronic disease On: :53 Request Comments: in 6 weeks Iron (65145)Indication: Anemia, chronic disease On: :53 Request Comments: in 6 weeks Metabolic Panel, Comprehensive (38750)Indication: Benign essential HTN On: :52 Request Comments: now and in 6 weeks T4, FREE (THYROXINE) (32822)Indication: Hypothyroidism On: :52 Request Comments: now and in 6 weeks TSH (36525)Indication: Hypothyroidism On: :52 Request Comments: now and in 6 weeks CBC, Platelets & Auto Diff (19952)Indication: Anemia, chronic disease On: :51 Request Comments: now and in 6 weeks Total Protein,24 Hour Urine (75970)Indication: Chronic kidney disease, stage III (moderate) On: :50 Request CREATININE CLEARANCE (12360)Indication: Chronic kidney disease, stage III (moderate) On: :49 Request FECAL OCCULT- Tubes sent home (33863)Indication: Anemia, chronic disease On: :48 Request IRON (51105)Indication: Anemia, chronic disease On: :48 Request Urine Protein Electrophoresis (UPEP) (92670)Indication: Chronic kidney disease, stage III (moderate) On: 67-Iyp-664955:42 Request T4, FREE (THYROXINE) (58310)Indication: Hypothyroidism On: :52 Request T3, FREE (TRIDOTHYRONINE) (46427)Indication: Hypothyroidism On: :52 Request TSH (THYROID STIMULATING HORMONE) (48391)Indication: Hypothyroidism On: :52 Request FERRITIN (98713)Indication: Anemia, chronic disease On: :51 Request IRON BINDING CAPACITY (TIBC) (74630)Indication: Anemia, chronic disease On: :51 Request IRON & TOTAL IRON BINDING CAPACITY (98434)Indication: Anemia, chronic disease On: :51 Request METABOLIC PANEL, COMPREHENSIVE (87320)Indication: Thrombocytosis On: :50 Request Iron (08649)Indication: Anemia On: :54 Request T3, FREE (TRIDOTHYRONINE) (56634)Indication: Hypothyroidism On: :24 Request TSH (40705)Indication: Hypothyroidism On: :24 Request T4, FREE (THYROXINE) (63796)Indication: Hypothyroidism On: :24 Request ESR-F (SED RATE ERYTHROCYTE - FEMALE) (67735)Indication: Osteomyelitis of pelvic region On: :59 Request Comments: 11/11/15 C-REACT PROT HIGH SENS(hsCRP) (87627)Indication: Osteomyelitis of pelvic region On: :59 Request Comments: 11/11/15 CBC, PLATELETS & AUT DIFF (83607)Indication: Osteomyelitis of pelvic region On: :58 Request Comments: 11/11/15 LIPID PANEL (74038)Indication: Osteoporosis On: :58 Request Comments: 11/11/15 METABOLIC PANEL, COMPREHENSIVE (29042)Indication: Osteomyelitis of pelvic region On: :58 Request Comments: 11/11/15 MICROALBUMIN: CREATININE RATIO (88207) AND (38687)Indication: Osteoporosis On: :58 Request Comments: 11/11/15 VITAMIN B12 AND FOLATES (39944)Indication: Osteoporosis On: :58 Request Comments: 11/11/15 CALCIFEDIOL (37160)Indication: Osteoporosis On: :58 Request Comments: 11/11/15 LIPASE (84288)Indication: Pancreatitis On: :04 Request Comments: 6 week METABOLIC PANEL, COMPREHENSIVE (43748)Indication: Liver function abnormality On: : Request Comments: 6 weeks T3, FREE (TRIDOTHYRONINE) (28161)Indication: Hypothyroidism On: : Request Comments: 6 weeks T4, FREE (THYROXINE) (90729)Indication: Hypothyroidism On: Request Comments: 6 weeks TSH (THYROID STIMULATING HORMONE) (60717)Indication: Hypothyroidism On: : Request Comments: 6 weeks CBC, PLATELETS & AUT DIFF (80005)Indication: Thrombocytosis On: : Request Comments: 6 weeks PT (Prothrobim Time) (78475)Indication: History of DVT (deep vein thrombosis) On: 28-Jun-2015 Request PT (Prothrobim Time) (96275)Indication: History of DVT (deep vein thrombosis) On: 29-May-2015 Request PT (Prothrobim Time) (66047)Indication: History of DVT (deep vein thrombosis) On: 29-Apr-2015 Request PT (Prothrobim Time) (80297)Indication: History of DVT (deep vein thrombosis) On: 30-Mar-2015 Request Metabolic Panel, Basic (86903)Indication: Abnormal blood chemistry On: 63-Mmt-553021:47 Request PT (Prothrobim Time) (29956)Indication: History of DVT (deep vein thrombosis) On: 28-Feb-2015 Request PT (Prothrobim Time) (31387)Indication: History of DVT (deep vein thrombosis) On: 29-Jan-2015 Request PT (Prothrobim Time) (31074)Indication: History of DVT (deep vein thrombosis) On: 30-Dec-2014 Request PT (Prothrobim Time) (64811)Indication: History of DVT (deep vein thrombosis) On: 30-Nov-2014 Request Urinalysis, Office (31685)Indication: Abnormal urine On: 85-Yri-992790:18 Request PT (Prothrobim Time) (41033)Indication: History of DVT (deep vein thrombosis) On: 01-Oct-2014 Request PT (Prothrobim Time) (46925)Indication: History of DVT (deep vein thrombosis) On: 89-Ucn-563980:46 Request URINALYSIS, W/ MICRO (06293)Indication: Chronic kidney disease, stage III (moderate) On: 20-Dmu-540972:50 Request METABOLIC PANEL, COMPREHENSIVE (32864)Indication: Chronic kidney disease, stage III (moderate) On: 58-Rue-032678:50 Request Metabolic Panel, Basic (39974)Indication: Chronic kidney disease, stage III (moderate) On: 39-Dpv-906273:12 Request URINALYSIS (89156)Indication: Chronic kidney disease, stage III (moderate) On: 28-Kus-813685:51 Request Comments: recheck before June follow up MICROALBUMIN: CREATININE RATIO (57642) AND (67952)Indication: Chronic kidney disease, stage III (moderate) On: 46-Qgt-601150:51 Request Comments: recheck before June follow up Metabolic Panel, Basic (38449)Indication: Chronic kidney disease, stage III (moderate) On: 36-Bxl-903095:50 Request Comments: recheck before June follow up Vitamin B-12 (cyanocobalamin) (22626)Indication: Other vitamin B12 deficiency anemia On: 41-Kie-870952:41 Request TSH (97964)Indication: Benign essential HTN On: 21-Csy-733867:41 Request METABOLIC PANEL, COMPREHENSIVE (04903)Indication: Chronic kidney disease, stage III (moderate) On: 77-Lrp-674929:41 Request CBC W/AUTO DIFF WBC (00827)Indication: Chronic kidney disease, stage III (moderate) On: 23-Vyr-117942:41 Request CALCIFIDIOL (41143) VIT D 25Indication: Osteoporosis On: 04-Uuw-319345:41 Request Vitamin B-12 (cyanocobalamin) (21566)Indication: Other vitamin B12 deficiency anemia On: 25-Jzp-642087:11 Request TSH (63065)Indication: Hypothyroidism On: 86-Vqq-496550:10 Request METABOLIC PANEL, COMPREHENSIVE (58016)Indication: Benign essential HTN On: 85-Ajw-189184:10 Request LIPID PANEL (03351)Indication: Benign essential HTN On: 92-Qft-040018:10 Request PREALBUMIN (12479)Indication: Abnormal loss of weight On: 10-Rro-019329:39 Request Vitamin B-12 (cyanocobalamin) (83733)Indication: Other vitamin B12 deficiency anemia On: 18-Pln-106517:36 Request TSH (16366)Indication: Hypothyroidism On: 50-Fsx-741896:35 Request Vitamin B-12 (cyanocobalamin) (82242)Indication: Other vitamin B12 deficiency anemia On: 60-Stb-08322:43 Request TSH (62392)Indication: Hypothyroidism On: 33-Lsf-09161:42 Request T3, FREE (TRIDOTHYRONINE) (89275)Indication: Hypothyroidism On: :42 Request T4, FREE (THYROXINE) (06854)Indication: Hypothyroidism On: 09-Zmn-74283:42 Request CBC, Platelets & Auto Diff (86779)Indication: Osteomyelitis of pelvic region On: 36-Ryz-769656:03 Request Comments: copy to Dr. Shira Contreras at [facility] LIPID PANEL (74126)Indication: Benign essential HTN On: 58-Aru-812644:50 Request TSH (15138)Indication: Hypothyroidism On: 61-Zqd-945761:50 Request Metabolic Panel, Comprehensive (71150)Indication: Chronic kidney disease, stage III (moderate) On: 73-Gwx-469928:50 Request Vitamin B-12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
--- OUTSIDE RECORDS SUMMARY | 2018-03-25 11:32 | XMS RPT_ITS | Continuity of Care Document ---
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 Please note: SPRCS (Normal) Comments: Protein electrophoresis scan will follow via computer, mail, orcourier delivery. A/G Ratio 0.7 (Normal) Range: 0.7-1.7 Globulin, Total 4.2 g/dL (Abnormal) Range: 2.2-3.9 M-Navarro Not Observed g/dL (Normal) Gamma Globulin 1.2 g/dL (Normal) Range: 0.4-1.8 Beta Globulin 1.4 g/dL (Abnormal) Range: 0.7-1.3 Ogenv-1-Neqnqvps 1.1 g/dL (Abnormal) Range: 0.4-1.0 Cpgiq-1-Vndfwidv 0.4 g/dL (Normal) Range: 0.0-0.4 Albumin 3.1 g/dL (Normal) Range: 2.9-4.4 :58 MAGNESIUM (13335) Comments: PATIENT NOT FASTINGPERFORMED BY: CB [facility] Xqsxdp1613 [address]and RoadDublin [place] [id number] Magnesium, Serum 1.8 mg/dL (Normal) Range: 1.6-2.3 :58 PHOSPHORUS (50010) Comments: PATIENT NOT FASTINGPERFORMED BY: CB [facility] Lqdryw4142 [address]and RoadDublin [place] [id number] Phosphorus, Serum 4.7 mg/dL (Abnormal) Range: 2.5-4.5 :58 CALCIFEDIOL (68731) Comments: PATIENT NOT FASTINGPERFORMED BY: CB [facility] Airsmm0941 Anand RoadDublin [place] [id number] Vitamin D, 25-Hydroxy 34.5 ng/mL (Normal) Range: 30.0-100.0 Comments: Vitamin D deficiency has been defined by the [place] [facility]cine and an Endocrine Society practice guideline as alevel of serum 25-OH vitamin D less than 20 ng/mL (1,2).The Endocrine Society went on to further define vitamin Dinsufficiency as a level between 21 and 29 ng/mL (2).1. IOM ([place] of Medicine). 2010. Dietary reference intakes for calcium and D. [place]: The National Academies Press.2. Justin MF, Jazmyn NC, Aniya CANO, et al. Evaluation, treatment, and prevention of vitamin D deficiency: an Endocrine Society clinical practice guideline. JCEM. 2010; 96(7):1911-30. :58 PARATHORMONE (46489) Comments: PATIENT NOT FASTINGPERFORMED BY: CB [facility] Drxjfr3363 Anand RoadDublin [place] [id number] PTH, Intact 41 pg/mL (Normal) Range: 15-65 :58 METABOLIC PANEL, Comments: PATIENT NOT FASTINGPERFORMED BY: CB [facility] Hvfpou8744 Anand RoadDublin [place] [id number] Information: DIFFICULT DRAW COMPREHENSIVE (16453) ALT (SGPT) 21 [iU]/L (Normal) Range: 0-32 [...] Glucose, Serum 63 mg/dL (Abnormal) Range: 65-99 3-Ukc-892539:04 Vitamin B-12 (cyanocobalamin) Comments: PATIENT WAS FASTINGPERFORMED BY: [employer]le[employer] [address] [id number] BY: Figleaves.comUNM Children's Psychiatric CenterSetupt2734 [facility] [id number] (05024) Vitamin B12 >2000 pg/mL (Abnormal) Range: 211-946 2-Uop-474393:04 CBC WITH MANUAL DIFF Comments: PATIENT WAS FASTINGPERFORMED BY: Figleaves.com[address] [id number] BY: Figleaves.comUNM Children's Psychiatric CenterTdwaml7360 [facility] [id number] (74512) Immature Grans (Abs) 0.0 {x10E3/uL} (Normal) Range: [...] 3.77-5.28 WBC 7.6 {x10E3/uL} (Normal) Range: 3.4-10.8 6-Jbz-375172:04 LIPOPROTEIN, BLD, BY NMR Comments: PATIENT WAS FASTINGPERFORMED BY: BN [facility] [address] [id number] BY: CB [facility] Ddsqkv7582 [facility] [id number] (66363) LP-IR Score 33 (Normal) Comments: INSULIN RESISTANCE [...] 1600 - 2000 Very High > 2000 37-Zuy-434877:36 [facility] (27579) Comments: PATIENT WAS FASTINGPERFORMED BY: Groom Energy SolutionsDuke Raleigh Hospital [id number] Please note: SPRCS (Normal) Comments: Protein electrophoresis scan will follow via computer, mail, orcourier delivery. M-Navarro, % Not Observed % (Normal) Gamma Globulin, U 26.0 % (Normal) Beta Globulin, U 31.1 % (Normal) Cgiae-5-Aengthmv, U 9.8 % (Normal) Anedn-5-Xwmtnojd, U 2.5 % (Normal) Albumin, U 30.7 % (Normal) Protein,Total,Urine 35.3 mg/dL (Normal) 29-Ocy-735303:36 SPEP (71385) Comments: PATIENT WAS FASTINGPERFORMED BY: TouristR Anand Canopy FinancialDuke Raleigh Hospital [id number] Please note: SPRCS (Normal) Comments: Protein electrophoresis scan will follow via computer, mail, orcourier delivery. A/G Ratio 0.7 (Normal) Range: 0.7-1.7 Globulin, Total 4.2 g/dL (Abnormal) Range: 2.2-3.9 M-Navarro Not Observed g/dL (Normal) Gamma Globulin 1.0 g/dL (Normal) Range: 0.4-1.8 Beta Globulin 1.5 g/dL (Abnormal) Range: 0.7-1.3 Tmrro-3-Jhemsbtg 1.3 g/dL (Abnormal) Range: 0.4-1.0 Qzupu-5-Wvgbgdbc 0.4 g/dL (Normal) Range: 0.0-0.4 Albumin 3.0 g/dL (Normal) Range: 2.9-4.4 46-Tph-697634:36 Lipid Panel (91612) Comments: PATIENT WAS FASTINGPERFORMED BY: UniversityLyfe70 [facility] [id number] LDL/HDL Ratio 0.9 {ratio_units} (Normal) Range: 0.0-3.2 [...] Cholesterol, Total 153 mg/dL (Normal) Range: 100-199 86-Rhx-685153:36 Metabolic Panel, Comprehensive Comments: PATIENT WAS FASTINGPERFORMED BY: LabCoThe Valley HospitalFbmusq2434 [facility] [id number] (98460) ALT (SGPT) 18 [iU]/L (Normal) Range: 0-32 [...] MANUAL DIFF Comments: PATIENT WAS FASTINGPERFORMED BY: LabCoThe Valley HospitalVlnjzs992[address] [place] [address] [id number] Information: DIFFICULT DRAW (25615) Immature Grans (Abs) 0.0 {x10E3/uL} (Normal) Range: [...] (LACTATE DEHYDROGENASE) Comments: PATIENT WAS FASTINGPERFORMED BY: LabCoThe Valley HospitalRcoadg3618 [facility] [id number] (23100) LDH 161 [iU]/L (Normal) Range: 119-226 04-Euo-684075:36 Vitamin B-12 (cyanocobalamin) Comments: PATIENT WAS FASTINGPERFORMED BY: Figleaves.comThe Valley HospitalWihbbw7895 [facility] [id number] (76011) Vitamin B12 717 pg/mL (Normal) Range: 211-946 34-Miz-866449:36 Iron Binding Capacity (TIBC) Comments: PATIENT WAS FASTINGPERFORMED BY: PolimetrixMunson Healthcare Grayling Hospital6370 [facility] [id number] (38343) Iron Saturation 7 % (Abnormal) Range: 15-55 Iron, Serum 29 ug/dL (Normal) Range: 27-139 UIBC 386 ug/dL (Abnormal) Range: 118-369 Iron Bind.Cap.(TIBC) 415 ug/dL (Normal) Range: 250-450 :36 Ferritin (48029) Comments: PATIENT WAS FASTINGPERFORMED BY: PolimetrixMunson Healthcare Grayling Hospital6370 [facility] [id number] Ferritin, Serum 43 ng/mL (Normal) Range: 15-150 :36 Folic Acid Serum (27378) Comments: PATIENT WAS FASTINGPERFORMED BY: Figleaves.comThe Valley HospitalClyoch8955 [facility] [id number] Folate (Folic Acid), Serum 11.3 ng/mL (Normal) Comments: A serum folate concentration of less than 3.1 ng/mL isconsidered to represent clinical deficiency. 62-Ygf-133169:36 TSH (44644) Comments: PATIENT WAS FASTINGPERFORMED BY: PolimetrixMunson Healthcare Grayling Hospital6370 [facility] [id number] TSH 0.530 {uIU/mL} (Normal) Range: 0.450-4.500 97-Sri-268149:36 T4, FREE (THYROXINE) (74928) Comments: PATIENT WAS FASTINGPERFORMED BY: PolimetrixMunson Healthcare Grayling Hospital6370 [facility] [id number] T4,Free(Direct) 1.90 ng/dL (Abnormal) Range: 0.82-1.77 40-Aqu-583536:36 T3, FREE (TRIDOTHYRONINE) (25919) Comments: PATIENT WAS FASTINGPERFORMED BY: [facility] Sponrz8215 [facility] [id number] Triiodothyronine,Free,Serum 1.9 pg/mL (Abnormal) Range: 2.0-4.4 :23 CBC W/Diff, Automated Comments: [facility] [address] [place], [address] Absolute Lymph 2.62 {X10_3/ul} (Normal) [...] Range: 4.4-11.0 :23 Comprehensive Metabolic Profil Comments: [facility] [address] [place], [place], [id number] GAP 7 (Normal) Range: 5-15 CO2 27.0 [...] (Normal) Range: 70-110 :23 Free T3 Comments: [facility] [address] [place], [place], [id number] FREE T3 1.3 pg/mL (Abnormal) Range: 2.18-3.98 :23 Lipase Comments: [address] [place], [place], [address] LIPASE 130 U/L (Normal) Range: 73-393 :23 T4 Free Direct Comments: [address] [place], [place], [address] T4 FREE DIRECT 1.45 ng/dL (Normal) Range: 0.76-1.46 :23 Thyroid Stim Hormone (TSH) Comments: [facility] Lafdmfcjgn[address] [place], [id number] TSH 17.10 {uIU/mL} (Abnormal) Range: 0.358-3.74 :22 CRP Comments: Order Date: 11/22/15Order Date: 11/22/15[facility] [address] [place], [id number] C-REACTIVE PROT 11.80 mg/L (Abnormal) Range: 0.0-3.0 Comments: C-Reactive Protein (CRP) provides useful information for thediagnosis, therapy and monitoring of inflammatory processesand associated diseases. For the evaluation of Relative Riskfor Cardiovascular Dise ase, a High Sensitivity CRP (HSCRP)should be ordered. :22 Erythrocyte Sed Rate Comments: Order Date: 11/22/15Interface Comments: Reason:Order Date: 11/22/15[facility] Vsnpiegpec7[address] [place], [id number] SED RATE 83 mm/h (Abnormal) Range: 0-30 3-Ndo-395662:29 Culture, Wound Comments: [facility] [address] [place], [address] CUW See Note (Normal) Comments: Order Date: 11/22/15 Gram StainGram Stain 1+ Red Cell Stroma Rare Gram positive cocci Wound CulturePossible skin contamination, further Identification and sensitivity will be performed only by physi jamshid's request. ORGANISM 1: Coag Negative StaphAmount Growth Rare :11 CBC W/Diff, Automated Comments: [facility] Mlbxblejrc9108 [place], [id number] Absolute Lymph 2.98 {X10_3/ul} (Normal) Range: 0.83-4.51 [...] 4.2-5.4 WBC 6.9 K/mm3 (Normal) Range: 4.4-11.0 10-Znk-72758:11 Comprehensive Metabolic Profil Comments: Is Patient Taking Vitamins or Folic Acid Supplements? [facility] Eynqrutqah3761 [facility] [place], [place], [address] GAP 7 (Normal) Range: 5-15 CO2 28.0 [...] Patient Taking Vitamins or Folic Acid Supplements? [facility] G[address]hnz[address] [place], [address] CRP HIGH SENS 1.79 mg/L (Normal) Comments: Low Relative Risk of CVD <1.0 mg/L Average Relative Risk of CVD 1.0 - 3.0 mg/L High Relative Risk of CVD >3.0 mg/L :11 Erythrocyte Sed Rate Comments: [facility] [address] [place], [address] SED RATE 37 mm/h (Abnormal) Range: 0-30 :11 Folates, (Folic Acid) Comments: Is Patient Taking Vitamins or Folic Acid Supplements? [facility] Tw[address]xcqrx[address] [place], [address] FOLATES 30.20 ng/mL (Abnormal) Range: 3.1-17.5 :11 Lipid Profile Comments: Is Patient Taking Vitamins or Folic Acid Supplements? [facility] Ywworisedl[address] [place], [address] VLDL 16 mg/dL (Normal) Range: 5-40 LDL [...] :11 Vitamin B12 694 pg/mL (Normal) Comments: [facility] [address]ugwncxd[address] [place], [address] Range: 211-911 :11 Vitamin D,25 Hydroxy Comments: [facility] Qicqklzpsb[address] [place], [address] Vitamin D 25-OH > 150.0 ng/mL (Normal) [...] is nointerference with Vitamin D test results. 53-Jym-16863:01 Protein+Creatinine Ratio,Urine Comments: [facility] Twus[address]bmkdj[address] [place], [id number] PROT:CRE RATIO 276 {mg/g_CRE} (Abnormal) Range: 0-200 PROTEIN,UR.RAN. 60.7 mg/dL (Abnormal) UR CREAT 220.00 mg/dL (Normal) :01 Renal Profile Comments: [facility] [address]zb[address] [place], [id number] CO2 30.0 mmol/L (Normal) Range: 21.0-32.0 CL [...] 7-18 GLU 97 mg/dL (Normal) Range: 70-110 5-Dqb-645715:20 Urinalysis, Complete Comments: Order Date: 09/23/15Has pt arrived? YHow was Urine Obtained? [facility]RIAGE COUNSEL[facility]WL[facility] Yujyfawrzi[address] [place], [id number] YEAST-URINE 1+ {/hpf} (Normal) MUCUS, URINE 0 [...] CLARITY Sl. Cloudy (Normal) COLOR Yellow (Normal) 3-Csa-985007:30 CBC W/Diff, Automated Comments: [facility] [address]ew[address] [place], [address] Absolute Lymph 2.14 {X10_3/ul} (Normal) Range: 0.83-4.51 [...] 4.2-5.4 WBC 9.9 K/mm3 (Normal) Range: 4.4-11.0 4-Cpl-437389:30 Comprehensive Metabolic Profil Comments: [facility] [address] [place], [place], [address] GAP 9 (Normal) Range: 5-15 CO2 20.0 [...] 7-18 GLU 107 mg/dL (Normal) Range: 70-110 7-Hzj-573180:30 Lipase Comments: [facility] [address] [place], [address] LIPASE 542 U/L (Abnormal) Range: 73-393 :45 Vitamin B-12 (cyanocobalamin) Comments: PATIENT WAS FASTINGPERFORMED BY: [facility]6370 [facility] [id number] (10389) Vitamin B12 998 pg/mL (Abnormal) Range: 211-946 :45 METABOLIC PANEL, COMPREHENSIVE Comments: PATIENT WAS FASTINGPERFORMED BY: LabMun[facility]6370 [facility] [id number] (01390) ALT (SGPT) 48 [iU]/L (Abnormal) Range: 0-32 [...] auto diff Comments: PATIENT WAS FASTINGPERFORMED BY: LabCoThe Valley HospitalZpqupy5157 [facility] [id number] Information: [id number] (02421) Immature Grans (Abs) 0.0 {x10E3/uL} (Normal) Range: [...] 8.3 {x10E3/uL} (Normal) Range: 3.4-10.8 :45 TSH (39992) Comments: PATIENT WAS FASTINGPERFORMED BY: LabCoThe Valley HospitalXemlsk9196 [facility] [id number] TSH 25.460 {uIU/mL} (Abnormal) Range: 0.450-4.500 43-Xhr-392164:16 Renal Profile Comments: [facility] [address] [place], [place], [address] CO2 23.0 mmol/L (Normal) Range: 21.0-32.0 CL [...] 7-18 GLU 108 mg/dL (Normal) Range: 70-110 71-Ykq-877790:07 Culture, Urine Comments: [facility] Xnnvadmchk[address] [place], [place], [address] CUUR See Note (Normal) Comments: Urine CultureORGANISM 1: Streptococcus mitis/ oralisColony Count 50,000-80,000 Streptococcus mitis/ oralis: REACTION Ampicillin $ <=0.25 S Benzylpenicillin NF 8 R Ceftriaxone (other dx) $ <=0.12 S Levofloxacin $ 8 R Tetracycline NF >=16 R Vancomycin $ 0.25 S(NF) indicates non-formulary drug at [facility]. Approval by Infectious Disease Specialist required b efore non-formulary drugs may be ordered and/or dispensed. * CLSI guidelines does not recommend testing of cephalosporins. This interpretation is deduced from Beta-lactam/penicillin results. 99-Fwa-22619:58 CALCIFIDIOL (23114) VIT D 25 Comments: PATIENT NOT FASTINGPERFORMED BY: [facility]6370 [facility] [id number] Vitamin D, 25-Hydroxy 43.7 ng/mL (Normal) Range: 30.0-100.0 Comments: Vitamin D deficiency has been defined by the [place] of[place]icine and an Endocrine Society practice guideline as alevel of serum 25-OH vitamin D less than 20 ng/mL (1,2).The Endocrine Society went on to further define vitamin Dinsufficiency as a level between 21 and 29 ng/mL (2).1. IOM ([place]). 2010. Dietary reference intakes for calcium and D. [place]: The National Academies Press.2. Justin MF, Jazmyn [place], Aniya CANO, et al. Evaluation, treatment, and prevention of vitamin D deficiency: an Endocrine Society clinical practice guideline. JCEM. 2010; 96(7):1911-30. :58 METABOLIC PANEL, Comments: PATIENT NOT FASTINGPERFORMED BY: [facility] Oumqxi9520 [facility] [id number] Information: [id number] DIFFICULT D RAW; apt. 4-25 COMPREHENSIVE (11879) ALT (SGPT) 11 [iU]/L (Normal) Range: 0-32 [...] Panel, Basic Comments: PATIENT NOT FASTINGPERFORMED BY: UniversityLyfe70 [facility] [id number] Information: [id number] (25573) Calcium, Serum 7.8 mg/dL (Abnormal) Range: 8.7-10.3 [...] (Abnormal) Range: 65-99 Comments: Client Requested Flag 85-Nhh-231803:23 Urinalysis, Office (64117) UA - LEUKOCYTE ESTERASE Trace (Normal) UA - NITRITE Negative (Normal) URINE UROBILINGN EVY TIMED Normal mg/dL (Normal) UA - PROTEIN 30 mg/dL (Normal) UA - PH 6.0 (Normal) UA - BLOOD Negative (Normal) UA - SPECIFIC GRAVITY 1.025 (Normal) UA - KETONES Negative mg/dL (Normal) UA - BILIRUBIN Negative (Normal) UA - GLUCOSE Negative (Normal) 2-Pww-558668:01 Metabolic Panel, Comments: PATIENT NOT FASTINGPERFORMED BY: Figleaves.comUNM Children's Psychiatric CenterRrofom6271 [facility] [id number] Information: [id number] Comprehensive (72410) ALT (SGPT) 52 [iU]/L (Abnormal) Range: 0-32 [...] cells when received.This may adversely affect serumChemistries. 01-Tsc-836608:30 Metabolic Panel, Comments: PATIENT NOT FASTINGPERFORMED BY: LabCoThe Valley HospitalZsbidw5937 [facility] [id number] Information: [id number] Comprehensive (22598) ALT (SGPT) 9 [iU]/L (Normal) Range: 0-32 [...] (Prothrobim Time) Comments: PATIENT NOT FASTINGPERFORMED BY: LabCoThe Valley HospitalTsptcu5736 [facility] [id number] Information: [id number] (97850) Prothrombin Time 12.6 {sec} (Abnormal) Range: 9.1-12.0 INR 1.2 (Normal) Range: 0.8-1.2 Comments: Reference interval is for non-anticoagulated patients. . Suggested INR therapeutic range for Vitamin K anta gonist therapy: Standard Dose (moderate intensity therapeutic range): 2.0 - 3.0 Higher intensity therapeutic range 2.5 - 3.5 83-Brn-484649:50 Urinalysis, Office (42037) UA - LEUKOCYTE ESTERASE Trace (Normal) UA - NITRITE Negative (Normal) URINE UROBILINGN EVY TIMED Normal mg/dL (Normal) UA - PROTEIN 100 mg/dL (Normal) UA - PH 6.0 (Normal) UA - BLOOD Non Hemolyzed Trace (Normal) UA - SPECIFIC GRAVITY 1.030 (Abnormal) UA - KETONES Negative mg/dL (Normal) UA - BILIRUBIN Negative (Normal) UA - GLUCOSE Negative (Normal) 40-Bff-707375:26 URINE CARMEN CULTURE (EVY Comments: PATIENT NOT FASTINGPERFORMED BY: UniversityLyfe70 IntalioD[facility] Hospital [id number] Information: SRC:[facility] [id number] COL COUNT) (19618) Result 1 NG36 (Normal) Comments: No growth in 36 - 48 hours. Urine Culture,Comprehensive Final report (Normal) 1-Jnr-625737:08 Vitamin B-12 (cyanocobalamin) Comments: in six months (approximately); PATIENT WAS FASTINGPERFORMED BY: Ornis6370 IntalioD[facility] [id number] (44003) Vitamin B12 433 pg/mL (Normal) Range: 211-946 2-Iqh-914057:08 CBC W/AUTO DIFF WBC Comments: in six months (approximately); PATIENT WAS FASTINGPERFORMED BY: Ornis6370 [facility] [id number] Information: [id number] (73694) Immature Grans (Abs) 0.0 {x10E3/uL} (Normal) Range: [...] 3.77-5.28 WBC 5.2 {x10E3/uL} (Normal) Range: 3.4-10.8 0-Pgq-241526:08 TSH (74976) Comments: in six months (approximately); PATIENT WAS FASTINGPERFORMED BY: LabCoThe Valley HospitalVuqaut4465 [facility] [id number] TSH 0.802 {uIU/mL} (Normal) Range: 0.450-4.500 16-Kkn-607466:38 METABOLIC PANEL, Comments: in six months (approximately); PATIENT NOT FASTINGPERFORMED BY: LabCoThe Valley HospitalYanith7772 [facility] [id number] Information: [id number] COMPREHENSIVE (08209) ALT (SGPT) 10 [iU]/L (Normal) Range: 0-32 [...] Glucose, Serum 91 mg/dL (Normal) Range: 65-99 0-Urg-439122:08 LIPID PANEL (90963) Comments: in six months (approximately); PATIENT WAS FASTINGPERFORMED BY: RetailVectorCraw[facility] Hospital [id number]; apt. 16 LDL/HDL Ratio 0.8 {ratio_units} (Normal) [...] Cholesterol, Total 205 mg/dL (Abnormal) Range: 100-199 1-Vjs-203773:08 PT (Prothrobim Time) (95116) Comments: today; PATIENT WAS FASTINGPERFORMED BY: TouristR [facility] [id number]; inr not need addressed patient on Eliqus Prothrombin Time 11.0 {sec} (Normal) Range: 9.1-12.0 INR 1.1 (Normal) Range: 0.8-1.2 Comments: Reference interval is for non-anticoagulated patients. . Suggested INR therapeutic range for Vitamin K anta gonist therapy: Standard Dose (moderate intensity therapeutic range): 2.0 - 3.0 Higher intensity therapeutic range 2.5 - 3.5 5-Hlg-002580:08 POTASSIUM SERUM (60076) Comments: today; PATIENT WAS FASTINGPERFORMED BY: [employer]esk Bnhxth1776 Nomos SoftwareCrawley Memorial Hospital [id number] Potassium, Serum 4.4 mmol/L (Normal) Range: 3.5-5.2 36-Wim-24933:41 Comp. Metabolic Panel (14) Comments: PATIENT NOT FASTINGPERFORMED BY: ev-social [facility] Ahzswo1843 [facility] [id number] Information: [id number] DIFFICULT D RAW ALT (SGPT) 10 [iU]/L [...] Microscopic Examination Comments: PATIENT NOT FASTINGPERFORMED BY: PolimetrixMunson Healthcare [facility] Hospital6370 [facility] [id number] Bacteria Few (Normal) Mucus Threads Present (Normal) Epithelial Cells (non renal) 0-10 {/hpf} (Normal) Range: 0 - 10 RBC 0-2 {/hpf} (Normal) Range: 0 - 2 WBC >30 {/hpf} (Abnormal) Range: 0 - 5 :41 Urinalysis, Complete Comments: PATIENT NOT FASTINGPERFORMED BY: [facility]6370 [facility] [id number] Microscopic Examination See below: (Normal) Comments: Microscopic was indicated and was performed. Nitrite, Urine Negative (Normal) Urobilinogen,Semi-Qn 0.2 mg/dL (Normal) Range: 0.0-1.9 Bilirubin Negative (Normal) Occult Blood Negative (Normal) Ketones Negative (Normal) Glucose Negative (Normal) Protein Trace (Normal) WBC Esterase 2+ (Abnormal) Appearance Cloudy (Abnormal) Urine-Color Yellow (Normal) pH 6.0 (Normal) Range: 5.0-7.5 Specific [place] 1.015 (Normal) Range: 1.005-1.030 88-Oqk-173859:49 Prothrombin Time (PT) Comments: PATIENT NOT FASTINGPERFORMED BY: [facility]6370 [facility] [id number] Information: [id number] Prothrombin Time 28.9 {sec} (Abnormal) Range: 9.1-12.0 INR 2.7 (Abnormal) Range: 0.8-1.2 Comments: Reference interval is for non-anticoagulated patients. . Suggested INR therapeutic range for Vitamin K anta gonist therapy: Standard Dose (moderate intensity therapeutic range): 2.0 - 3.0 Higher intensity therapeutic range 2.5 - 3.5 10-Rlu-133047:49 Prothrombin Time (PT) Comments: PATIENT NOT FASTINGPERFORMED BY: [facility]6370 [facility] [id number] Information: [id number] Prothrombin Time 31.0 {sec} (Abnormal) Range: 9.1-12.0 INR 2.8 (Abnormal) Range: 0.8-1.2 Comments: Reference interval is for non-anticoagulated patients. . Suggested INR therapeutic range for Vitamin K anta gonist therapy: Standard Dose (moderate intensity therapeutic range): 2.0 - 3.0 Higher intensity therapeutic range 2.5 - 3.5 :28 Eosinophil, Urine (73072) Comments: PATIENT NOT FASTINGPERFORMED BY: [facility] Ksggcs0741 [facility] [id number] Information: [id number] Eosinophil, Urine No Eosinophils Seen % Comments: <5% few or none seenReceived at room temperature;interpret result with caution. (Normal) :28 Eosinophil, Urine (05095) Comments: PATIENT NOT FASTINGPERFORMED BY: LabCoThe Valley HospitalKogzli1715 [facility] [id number] Information: [id number] Eosinophil, Urine No Eosinophils Seen % Comments: <5% few or none seenReceived at room temperature;interpret result with caution. (Normal) :54 Basic Metabolic Profile (BMP) Comments: Test performed at:[facility] Xcvmfmrvnf24[address] [place] [address] GAP 5 (Normal) Range: 5-15 CO2 27.0 [...] :54 Microalb:Creat Ratio,Random UR Comments: Test performed at:[facility] Hmgsqzayvc1550 [place] [address] MALB:CREAT 44.5 {mg/g_CRE} (Abnormal) MICROALBUMIN,UR 52.7 mg/L (Normal) UR CREAT 118.2 mg/dL (Normal) 21-May-20147:54 Urinalysis, Routine (Dipstick) Comments: How was Urine Obtained? CLEAN CATCHTest performed at:[facility] Wiwpomwohl232[address] [place] [address] LEUK ESTERASE 100 /ul (Abnormal) OCCULT BLOOD-UR 10 /ul (Abnormal) NITRITE UR Negative (Normal) UROBILI Normal mg/dL (Normal) PROT DIPSTX 15 mg/dL (Abnormal) pH UR 5.0 (Normal) Range: 5.0 - 8.0 SP.GR. DIPSTX 1.020 (Normal) Range: 1.002-1.030 KETONE UR Negative mg/dL (Normal) BILIRUBIN URINE Negative mg/dL (Normal) GLUCOSE, UR Normal mg/dL (Normal) CLARITY Sl. Cloudy (Normal) COLOR Yellow (Normal) 95-Sif-234153:07 Eosinophil, Urine (65643) Comments: PATIENT NOT FASTINGPERFORMED BY: [employer] Energy SolutionsD[facility] Hospital [id number] Information: [id number] Eosinophil, Urine 5 % (Normal) Comments: <5% few or none seenReceived at room temperature;interpret result with caution. 13-Ixx-671983:10 MICROALBUMIN: CREATININE RATIO Comments: recheck in 6 weeks; PATIENT NOT FASTINGPERFORMED BY: [employer] Energy SolutionsD[facility] Hospital [id number] (09265) AND (05432) Microalb/Creat Ratio 92.2 {mg/g_creat} (Abnormal) Range: 0.0-30.0 Microalbumin, Urine 180.9 ug/mL (Abnormal) Range: 0.0-17.0 Creatinine, Urine 196.2 mg/dL (Normal) Range: 15.0-278.0 40-Bup-520490:10 Metabolic Panel, Basic Comments: recheck in 6 weeks; PATIENT NOT FASTINGPERFORMED BY: [employer] Energy SolutionsD[facility] Hospital [id number] Information: [id number] (24168) Calcium, Serum 9.2 mg/dL (Normal) Range: 8.7-10.3 [...] 89 mg/dL (Normal) Range: 65-99 :21 CALCIFIDIOL (11788) VIT D 25 Comments: PATIENT NOT FASTINGPERFORMED BY: LabApplied Bioresearch6370 [facility] [id number] Vitamin D, 25-Hydroxy 35.5 ng/mL (Normal) Range: 30.0-100.0 Comments: Vitamin D deficiency has been defined by the [place] of[place] and an Endocrine Society practice guideline as alevel of serum 25-OH vitamin D less than 20 ng/mL (1,2).The Endocrine Society went on to further define vitamin Dinsufficiency as a level between 21 and 29 ng/mL (2).1. IOM ([place] of [employer]). 2010. Dietary reference intakes for calcium and D. [place]: The National Academies Press.2. Justin MF, Jazmyn NC, Aniya CANO, et al. Evaluation, treatment, and prevention of vitamin D deficiency: an Endocrine Society clinical practice guideline. JCEM. 2010; 96(7):1911-30. :22 Total Protein,24 Hour Urine Comments: PATIENT NOT FASTINGPERFORMED BY: [facility] Abpmtj4957 [facility] [id number] (28896) Prot,24hr calculated 196.5 {mg/24_hr} (Abnormal) Range: 30.0-150.0 Protein,Total,Urine 39.3 mg/dL (Abnormal) Range: 0.0-15.0 0-Cob-279785:22 CREATININE CLEARANCE Comments: PATIENT NOT FASTINGPERFORMED BY: CRISTA [facility]onProgress [facility] Hzhmco5710 [facility] [id number] Information: SRC: [id number] START- 4@630AM YOHAN Peres (61373) Creatinine Clearance 29 mL/min (Abnormal) Range: 88-128 Comments: The above range is based on 1.73 square meter average body surfacearea. Creatinine, Ur 24hr 544.0 {mg/24_hr} (Abnormal) Range: 800.0-1800.0 Creatinine, Urine 108.8 mg/dL (Normal) Range: 15.0-278.0 eGFR If Africn Am 46 mL/min/1.73 (Abnormal) eGFR If NonAfricn Am 40 mL/min/1.73 (Abnormal) Creatinine, Serum 1.31 mg/dL (Abnormal) Range: 0.57-1.00 0-Qgf-734748:21 PT (Prothrobim Time) Comments: standing order; PATIENT NOT FASTINGPERFORMED BY: [facility]6370 [facility] [id number] Information: [id number] (03905) Prothrombin Time 26.3 {sec} (Abnormal) Range: 9.1-12.0 INR 2.4 (Abnormal) Range: 0.8-1.2 Comments: Reference interval is for non-anticoagulated patients. . Suggested INR therapeutic range for Vitamin K anta gonist therapy: Standard Dose (moderate intensity therapeutic range): 2.0 - 3.0 Higher intensity therapeutic range 2.5 - 3.5 36-Utp-134438:36 Request Problem Comments: PATIENT NOT FASTINGPERFORMED BY: [place] [id number] [facility] [id number] 70-Pgi-403120:23 Vitamin B-12 (cyanocobalamin) Comments: PATIENT NOT FASTINGPERFORMED BY: [facility]6370 [facility] [id number] (59908) :23 TSH (46965) Comments: PATIENT NOT FASTINGPERFORMED BY: [facility]6370 [facility] [id number] :23 PT (Prothrobim Time) (97730) Comments: INR standing order do today also; PATIENT NOT FASTINGPERFORMED BY: [facility]rixM[facility]6370 [facility] [id number] INR 1.8 (Abnormal) Range: 0.8-1.2 Comments: Reference interval is for non-anticoagulated patients. . Suggested INR therapeutic range for Vitamin K anta gonist therapy: Standard Dose (moderate intensity therapeutic range): 2.0 - 3.0 Higher intensity therapeutic range 2.5 - 3.5 Prothrombin Time 18.4 {sec} (Abnormal) Range: 9.1-12.0 :23 METABOLIC PANEL, COMPREHENSIVE Comments: PATIENT NOT FASTINGPERFORMED BY: PolimetrixTyrone [place] 3463270 [facility] [id number] (07421) ALT (SGPT) 13 [iU]/L (Normal) Range: 0-32 [...] Glucose, Serum 75 mg/dL (Normal) Range: 65-99 92-Rcx-889810:23 LIPID PANEL (00469) Comments: PATIENT NOT FASTINGPERFORMED BY: [employer]6370 [facility] [id number] LDL/HDL Ratio 1.1 {ratio_units} (Normal) Range: 0.0-3.2 LDL Cholesterol Calc 92 mg/dL (Normal) Range: 0-99 HDL Cholesterol 82 mg/dL (Normal) Comments: According to ATP-III Guidelines, HDL-C >59 mg/dL is considered anegative risk factor for CHD. VLDL Cholesterol Alesha 38 mg/dL (Normal) Range: 5-40 Cholesterol, Total 212 mg/dL (Abnormal) Range: 100-199 Triglycerides 192 mg/dL (Abnormal) Range: 0-149 02-Lfp-786932:23 CBC WITH MANUAL DIFF Comments: PATIENT NOT FASTINGPERFORMED BY: [employer] Bmdyfn2151 [facility] [id number] Information: [id number], [id number]: [id number] (30957) Immature Grans (Abs) 0.0 {x10E3/uL} (Normal) Range: [...] 3.77-5.28 WBC 6.5 {x10E3/uL} (Normal) Range: 3.4-10.8 92-Ltl-484376:23 Sed Rate Erythrocyte (50327) Comments: PATIENT NOT FASTINGPERFORMED BY: ev-social [facility] Uyemjb8203 [facility] [id number] Sedimentation Rate-Westergren 16 mm/h (Normal) Range: 0-40 11-Dde-648078:50 CBC with manual diff Comments: recheck in 4 weeks; PATIENT NOT FASTINGPERFORMED BY: [facility] [address] [id number] Information: ADD [id number] AND DRAW FEE 99 6636 (36893) Immature Grans (Abs) 0.0 {x10E3/uL} (Normal) Range: [...] 3.77-5.28 WBC 10.5 {x10E3/uL} (Normal) Range: 3.4-10.8 39-Ybq-491451:50 Sed Rate Erythrocyte (52912) Comments: re check in 4 weeks; PATIENT NOT FASTINGPERFORMED BY: G[facility] Energy SolutionsD[facility] Hospital [id number] Sedimentation Rate-Westergren 39 mm/h (Normal) Range: 0-40 :48 PREALBUMIN (93596) Comments: PATIENT NOT FASTINGPERFORMED BY: [employer] Crqnze0107 Anand Canopy FinancialDuke Raleigh Hospital [id number] Prealbumin 23 mg/dL (Normal) Range: 20-40 :48 Magnesium (89106) Comments: PATIENT NOT FASTINGPERFORMED BY: University[employer]fe70 IntalioD[facility] Hospital [id number] Magnesium, Serum 1.8 mg/dL (Normal) Range: 1.6-2.6 :48 Metabolic Panel, Comments: PATIENT NOT FASTINGPERFORMED BY: [employer] Roomish [facility] [id number] Information: [id number] [facility] (15590) ALT (SGPT) 12 [iU]/L (Normal) Range: 0-32 [...] Glucose, Serum 86 mg/dL (Normal) Range: 65-99 95-Vxg-665083:15 CBC With Differential/Platelet Comments: PATIENT WAS FASTINGPERFORMED BY: CB [facility] Hwhdbz0900 [facility] [id number] BY: BN [facility] [address] [id number] Immature Grans (Abs) 0.0 {x10E3/uL} (Normal) Range: [...] 3.77-5.28 WBC 5.9 {x10E3/uL} (Normal) Range: 4.0-10.5 68-Xhw-696842:15 Comp. Metabolic Panel Comments: PATIENT WAS FASTINGPERFORMED BY: CB [facility] Bacrie7036 [facility] [id number] BY: BN [facility] [address] [id number] (14) ALT (SGPT) 7 [iU]/L (Normal) Range: [...] 16.5 umol/L Comments: PATIENT WAS FASTINGPERFORMED BY: [employer]in6370 [facility] [id number] BY: Polimetrix[address] [id number] :15 Plasma (Abnormal) Range: 0.0-15.0 65-Kkw-849504:15 Lipid Panel With LDL/HDL Comments: PATIENT WAS FASTINGPERFORMED BY: [employer] Izyogx[address] [place] [address] [id number] BY: [employer]le[employer]com[address] [id number] Ratio LDL/HDL Ratio 0.7 {ratio_units} Range: 0.0-3.2 [...] nmol/L (Normal) Comments: PATIENT WAS FASTINGPERFORMED BY: [employer]70 [facility] [id number] BY: [address] [id number] 310:15 Serum Range: 73-376 Comments: The reference range for methylmalonic acid has been set at +3sd abovethe mean for healthy blood bank donors. In the clinical assessment ofpatients with megaloblastic anemias a cutoff of +3sd provides gr eaterspecificity in the diagnosis of the vitamin deficiency states,despite the sacrifice of some sensitivity. 95-Jec-645590:15 Prothrombin Time (PT) Comments: PATIENT WAS FASTINGPERFORMED BY: [employer]70 [facility] [id number] BY: [employer]leaves[employer]com[address] [id number] Prothrombin Time 20.5 {sec} (Abnormal) Range: 9.1-12.0 INR 2.0 (Abnormal) Range: 0.8-1.2 Comments: Reference interval is for non-anticoagulated patients. . Suggested INR therapeutic range for Vitamin K anta gonist therapy: Standard Dose (moderate intensity therapeutic range): 2.0 - 3.0 Higher intensity therapeutic range 2.5 - 3.5 TSH 0.706 {uIU/mL} Comments: PATIENT WAS FASTINGPERFORMED BY: [employer]70 [facility] [id number] BY: [address] [id number] :15 (Normal) Range: 0.450-4.500 07-Lni-103001:15 Vitamin B12 and Folate Comments: PATIENT WAS FASTINGPERFORMED BY: [employer]70 [facility] [id number] BY: Polimetrix[address] [id number] Folate (Folic Acid), >19.9 ng/mL (Normal) Comments: A serum folate concentration of less than 3.1 ng/mL isconsidered to represent clinical deficiency. Serum Vitamin B12 561 pg/mL (Normal) Range: 211-946 Vitamin D, 49.7 ng/mL (Normal) Comments: PATIENT WAS FASTINGPERFORMED BY: [facility]6370 [facility] [id number] BY: [address] [id number] :15 25-Hydroxy Range: 30.0-100.0 Comments: Vitamin D deficiency has been defined by the [place] and an Endocrine Society practice guideline as alevel of serum 25-OH vitamin D less than 20 ng/mL (1,2).The Endocrine Society went on to further define vitamin Dinsufficiency as a level between 21 and 29 ng/mL (2).1. IOM ([place]). 2010. Dietary reference intakes for calcium and D. [place]: The National Academies Press.2. Justin MF, Jazmyn NC, Rafael-Stan CANO, et al. Evaluation, treatment, and prevention of vitamin D deficiency: an Endocrine Society clinical practice guideline. JCEM. 2010; 96(7):1911-30. 03-Loj-419406:20 PT (Prothrobim Time) (76945) Comments: standing order; PATIENT NOT FASTINGPERFORMED BY: [facility]6370 [facility] [id number] Prothrombin Time 28.6 {sec} (Abnormal) Range: 9.1-12.0 INR 2.8 (Abnormal) Range: 0.8-1.2 Comments: Reference interval is for non-anticoagulated patients. . Suggested INR therapeutic range for Vitamin K anta gonist therapy: Standard Dose (moderate intensity therapeutic range): 2.0 - 3.0 Higher intensity therapeutic range 2.5 - 3.5 56-Civ-830188:30 CBC With Differential/Platelet Comments: PERFORMED BY: [facility]6370 [facility] [id number] BY: [employer]le[employer]com[address] [id number] Information: PER [facility] 03-07-12 RANDOM U Immature Grans [...] 3.77-5.28 WBC 9.1 {x10E3/uL} (Normal) Range: 4.0-10.5 91-Mst-827130:30 Chromium, Urine Comments: PERFORMED BY: CRISTA Vidapp Mjofra0152 hCeng [facility] [id number] BY: [employer]le[employer]com[address] [id number] Chromium/Creat Ratio 0.2 {ug/g_creat} Range: 0.0-4.9 (Normal) Comments: Environmental Exposure: 0.0 - 4.9 Occupational Exposure: RAEGAN 25.0 Chromium, Urine 0.3 ug/L (Normal) Range: 0.1-2.0 Comments: Detection Limit = 0.10 20-Dec-201 Ferritin, Serum 64 ng/mL (Normal) Comments: PERFORMED BY: Figleaves.comThe Valley HospitalCbteig508[address] [place] [address] [id number] BY: [address] [id number] 214:30 Range: 13-150 20-Dec-201 Homocyst(e)ine, Plasma 32.2 umol/L Comments: PERFORMED BY: Figle[employer].com[address] [id number] BY: [address] [id number] 214:30 (Abnormal) Range: 0.0-15.0 20-Dec-201 Iron, Serum 38 ug/dL (Normal) Comments: PERFORMED BY: Figleaves.comThe Valley HospitalSnmpid4398 [facility] [id number] BY: [address] [id number] 214:30 Range: 35-155 20-Dec-201 Magnesium, Serum 1.8 mg/dL (Normal) Comments: PERFORMED BY: [employer]le[employer].com[address] [id number] BY: [address] [id number] 214:30 Range: 1.6-2.6 20-Dec-201 Methylmalonic Acid, 525 nmol/L (Abnormal) Comments: PERFORMED BY: [employer]le[employer]com[address] [id number] BY: [address] [id number] 214:30 Serum Range: 73-376 Comments: Verified by repeat analysisThe reference range for methylmalonic acid has been set at +3sd abovethe mean for healthy blood bank donors. In the clinical assessment ofpatients with megaloblastic anemi as a cutoff of +3sd provides greaterspecificity in the diagnosis of the vitamin deficiency states,despite the sacrifice of some sensitivity. Phosphorus, Serum 3.6 mg/dL (Normal) Comments: PERFORMED BY: ActX [facility] [id number] BY: [address] [id number] 214:30 Range: 2.5-4.5 PTH, Intact 32 pg/mL (Normal) Comments: PERFORMED BY: ActX [facility] [id number] BY: [address] [id number] 214:30 Range: 15-65 Sedimentation 21 mm/h (Normal) Comments: PERFORMED BY: [employer]70 [facility] [id number] BY: [address] [id number] 214:30 Rate-Westergren Range: 0-40 Vitamin A, Serum 88 ug/dL (Abnormal) Comments: PERFORMED BY: [employer] Roomish [facility] [id number] BY: [address] [id number] 214:30 Range: 18-77 85-Lmx-754716:30 Vitamin B12 and Folate Comments: PERFORMED BY: [employer] Yisepk4841 [facility] [id number] BY: [address] [id number] Folate (Folic Acid), >19.9 ng/mL (Normal) Comments: A serum folate concentration of less than 3.1 ng/mL isconsidered to represent clinical deficiency. Serum Vitamin B12 326 pg/mL (Normal) Range: 211-946 Vitamin D, 21.0 ng/mL Comments: PERFORMED BY: Ornis6370 [facility] [id number] BY: Figleaves.com[address] [id number] :30 25-Hydroxy (Abnormal) Range: 30.0-100.0 Comments: Vitamin D deficiency has been defined by the [place] ofGood [facility] Hospitalcine and an Endocrine Society practice guideline as alevel of serum 25-OH vitamin D less than 20 ng/mL (1,2).The Endocrine Society went on to further define vitamin Dinsufficiency as a level between 21 and 29 ng/mL (2).1. IOM ([place]). 2010. Dietary reference intakes for calcium and D. [place]: The National Academies Press.2. Justin MF, Jazmyn FOSTER, Aniya CANO, et al. Evaluation, treatment, and prevention of vitamin D deficiency: an Endocrine Society clinical practice guideline. JCEM. 2010; 96(7):1911-30. :30 Zinc, Urine Comments: PERFORMED BY: Studiolin6370 [facility] [id number] BY: Figleaves.com[address] [id number] Zinc/Creat. Ratio 497 {ug/g_creat} (Normal) Range: 100-900 Creatinine(Working Manager),U 1.95 g/L (Normal) Range: 0.30-3.00 Comments: [...] hernia.There is presacral soft tissue density. Signed:Fabian Srakar D.O.December 05, 2011 at 7:36:04 PM [phone] Signed IF/IF If you are the referring physician and would like to consult with theradiologist who provided this interpretation, please contact Fabian Sarkar D.O.at [phone]. If this radiologist is unavailable, you will be directedto another radiologist to assist. If you are a patient with a question regarding this report, pleasecontactyour referring physician directly. Professional Interpretation Provided By: [employer], Phone , Thes e documents contain legally [...] on 12/05/111942 Sign by: Fabian Sarkar DO 1-Kge-522375:10 Metabolic Panel, Comprehensive Comments: copy to Dr. shukla; PATIENT NOT FASTINGPERFORMED BY: LabCoThe Valley HospitalPrycoa3528 [facility] [id number] (09581) ALT (SGPT) 16 [iU]/L (Normal) Range: 0-40 [...] Glucose, Serum 85 mg/dL (Normal) Range: 65-99 1-Ahu-541140:10 CBC, Platelets & Auto Diff Comments: PATIENT NOT FASTINGPERFORMED BY: PolimetrixCoThe Valley HospitalLhkyuk7012 [facility] [id number] Information: [id number] (49339) Immature Grans (Abs) 0.0 {x10E3/uL} (Normal) Range: [...] (Normal) Range: 4.0-10.5 :10 Sed Rate Erythrocyte (08310) Comments: PATIENT NOT FASTINGPERFORMED BY: LabCoThe Valley HospitalHvgvut3806 [facility] [id number] Sedimentation Rate-Westergren 53 mm/h (Abnormal) Range: 0-40 :14 Basic Metabolic Panel (8) Comments: PERFORMED BY: Educreationslin6370 [facility] [id number] Calcium, Serum 9.9 mg/dL (Normal) Range: 8.6-10.2 [...] Protein Electro, Random Urine Comments: PERFORMED BY: Figleaves.comThe Valley HospitalNyvbay6552 [facility] [id number] Please note: SPRCS (Normal) Comments: Protein electrophoresis scan will follow via computer, mail, orcourier delivery. Jwcqp-5-Smprjbyc, U 8.9 % (Normal) Beta Globulin, U 25.6 % (Normal) Gamma Globulin, U 26.9 % (Normal) M-Navarro, % Not Observed % (Normal) Albumin, U 36.2 % (Normal) Nhzry-0-Nodyfvrx, U 2.5 % (Normal) Protein,Total,Urine 40.0 mg/dL (Abnormal) Range: 0.0-15.0 43-Vpi-884845:14 Protein Electro.,S Comments: PERFORMED BY: CRISTA [facility] Rzlott5885 [facility] [id number] Please note: SPRCS (Normal) Comments: Protein electrophoresis scan will follow via computer, mail, orcourier delivery. 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.Performed At: [facility]6[address] [place], [place] [id number] RIBA RESULT <TEST NOT PERFORMED> (Normal) :10 [...] Indication: Low back pain Planned Observations URINALYSIS (91096)Indication: Chronic kidney disease, stage III (moderate) On: 52-Tzt-999099:36 Request MICROALBUMIN: CREATININE RATIO (90233) AND (88597)Indication: Chronic kidney disease, stage III (moderate) On: 37-Xkj-115478:35 Request METABOLIC PANEL, COMPREHENSIVE (64310)Indication: Chronic kidney disease, stage III (moderate) On: 0-Sux-278516:59 Request CALCIFIDIOL (97998) VIT D 25Indication: Vitamin D deficiency On: 2-Tlx-934182:59 Request CARMEN CULTURE-OTHER (46724)Indication: Vaginal discharge On: 13-Why-531991:46 Request Comments: vagina BACT CULTURE ANY-ANAEROBIC (99481)Indication: Vaginal discharge On: 64-Exw-280515:13 Request Comments: of vaginal fluid PHOSPHORUS (55539)Indication: Chronic kidney disease, stage III (moderate) On: 97-Tmi-571810:26 Request Comments: do before November office visit PHOSPHORUS (35778)Indication: Malnutrition On: 23-Aug-20179:21 Request Phosphorus (28511)Indication: Malnutrition On: :42 Request Magnesium (57649)Indication: Malnutrition On: :42 Request C-Reactive Protein (33723)Indication: Osteomyelitis of pelvic region On: 26-Fpp-749600:04 Request METABOLIC PANEL, COMPREHENSIVE (43697)Indication: Benign essential HTN On: :52 Request URIC ACID BLOOD (04175)Indication: Abnormal blood chemistry On: :52 Request Iron (96582)Indication: Anemia On: 71-Ugh-973564:44 Request Iron Binding Capacity (TIBC) (57392)Indication: Anemia, chronic disease On: :53 Request Comments: in 6 weeks Iron (12251)Indication: Anemia, chronic disease On: :53 Request Comments: in 6 weeks Metabolic Panel, Comprehensive (40215)Indication: Benign essential HTN On: :52 Request Comments: now and in 6 weeks T4, FREE (THYROXINE) (74755)Indication: Hypothyroidism On: :52 Request Comments: now and in 6 weeks TSH (04883)Indication: Hypothyroidism On: :52 Request Comments: now and in 6 weeks CBC, Platelets & Auto Diff (01522)Indication: Anemia, chronic disease On: :51 Request Comments: now and in 6 weeks Total Protein,24 Hour Urine (65426)Indication: Chronic kidney disease, stage III (moderate) On: :50 Request CREATININE CLEARANCE (84533)Indication: Chronic kidney disease, stage III (moderate) On: :49 Request FECAL OCCULT- Tubes sent home (84454)Indication: Anemia, chronic disease On: :48 Request IRON (80807)Indication: Anemia, chronic disease On: :48 Request Urine Protein Electrophoresis (UPEP) (53626)Indication: Chronic kidney disease, stage III (moderate) On: 59-Fnb-998891:42 Request T4, FREE (THYROXINE) (22349)Indication: Hypothyroidism On: :52 Request T3, FREE (TRIDOTHYRONINE) (31402)Indication: Hypothyroidism On: :52 Request TSH (THYROID STIMULATING HORMONE) (55355)Indication: Hypothyroidism On: :52 Request FERRITIN (35239)Indication: Anemia, chronic disease On: :51 Request IRON BINDING CAPACITY (TIBC) (72317)Indication: Anemia, chronic disease On: :51 Request IRON & TOTAL IRON BINDING CAPACITY (64904)Indication: Anemia, chronic disease On: :51 Request METABOLIC PANEL, COMPREHENSIVE (20038)Indication: Thrombocytosis On: :50 Request Iron (64362)Indication: Anemia On: :54 Request T3, FREE (TRIDOTHYRONINE) (45563)Indication: Hypothyroidism On: :24 Request TSH (93882)Indication: Hypothyroidism On: :24 Request T4, FREE (THYROXINE) (74293)Indication: Hypothyroidism On: :24 Request ESR-F (SED RATE ERYTHROCYTE - FEMALE) (20439)Indication: Osteomyelitis of pelvic region On: :59 Request Comments: 11/11/15 C-REACT PROT HIGH SENS(hsCRP) (52298)Indication: Osteomyelitis of pelvic region On: :59 Request Comments: 11/11/15 CBC, PLATELETS & AUT DIFF (80034)Indication: Osteomyelitis of pelvic region On: :58 Request Comments: 11/11/15 LIPID PANEL (47671)Indication: Osteoporosis On: :58 Request Comments: 11/11/15 METABOLIC PANEL, COMPREHENSIVE (00658)Indication: Osteomyelitis of pelvic region On: :58 Request Comments: 11/11/15 MICROALBUMIN: CREATININE RATIO (42981) AND (49669)Indication: Osteoporosis On: :58 Request Comments: 11/11/15 VITAMIN B12 AND FOLATES (42570)Indication: Osteoporosis On: :58 Request Comments: 11/11/15 CALCIFEDIOL (38191)Indication: Osteoporosis On: :58 Request Comments: 11/11/15 LIPASE (97343)Indication: Pancreatitis On: :04 Request Comments: 6 week METABOLIC PANEL, COMPREHENSIVE (34609)Indication: Liver function abnormality On: : Request Comments: 6 weeks T3, FREE (TRIDOTHYRONINE) (81606)Indication: Hypothyroidism On: : Request Comments: 6 weeks T4, FREE (THYROXINE) (03753)Indication: Hypothyroidism On: Request Comments: 6 weeks TSH (THYROID STIMULATING HORMONE) (51855)Indication: Hypothyroidism On: : Request Comments: 6 weeks CBC, PLATELETS & AUT DIFF (77863)Indication: Thrombocytosis On: : Request Comments: 6 weeks PT (Prothrobim Time) ([id number])Indication: History of DVT (deep vein thrombosis) On: 28-Jun-2015 Request PT (Prothrobim Time) ([id number])Indication: History of DVT (deep vein thrombosis) On: 29-May-2015 Request PT (Prothrobim Time) ([id number])Indication: History of DVT (deep vein thrombosis) On: 29-Apr-2015 Request PT (Prothrobim Time) ([id number])Indication: History of DVT (deep vein thrombosis) On: 30-Mar-2015 Request Metabolic Panel, Basic (68262)Indication: Abnormal blood chemistry On: 06-Jgn-907847:47 Request PT (Prothrobim Time) ([id number])Indication: History of DVT (deep vein thrombosis) On: 28-Feb-2015 Request PT (Prothrobim Time) ([id number])Indication: History of DVT (deep vein thrombosis) On: 29-Jan-2015 Request PT (Prothrobim Time) ([id number])Indication: History of DVT (deep vein thrombosis) On: 30-Dec-2014 Request PT (Prothrobim Time) ([id number])Indication: History of DVT (deep vein thrombosis) On: 30-Nov-2014 Request Urinalysis, Office (97376)Indication: Abnormal urine On: 97-Wke-662588:18 Request PT (Prothrobim Time) ([id number])Indication: History of DVT (deep vein thrombosis) On: 01-Oct-2014 Request PT (Prothrobim Time) ([id number])Indication: History of DVT (deep vein thrombosis) On: 00-Krl-368985:46 Request URINALYSIS, W/ MICRO (32040)Indication: Chronic kidney disease, stage III (moderate) On: 46-Ozy-927391:50 Request METABOLIC PANEL, COMPREHENSIVE (39663)Indication: Chronic kidney disease, stage III (moderate) On: 99-Qji-186444:50 Request Metabolic Panel, Basic (66035)Indication: Chronic kidney disease, stage III (moderate) On: 47-Ugl-367832:12 Request URINALYSIS ([id number])Indication: Chronic kidney disease, stage III (moderate) On: 38-Djn-617378:51 Request Comments: recheck before June follow up MICROALBUMIN: CREATININE RATIO (25159) AND (22145)Indication: Chronic kidney disease, stage III (moderate) On: 02-Lkq-423005:51 Request Comments: recheck before June follow up Metabolic Panel, Basic (62827)Indication: Chronic kidney disease, stage III (moderate) On: 50-Wvj-688851:50 Request Comments: recheck before June follow up Vitamin B-12 (cyanocobalamin) (85877)Indication: Other vitamin B12 deficiency anemia On: 68-Dgi-347485:41 Request TSH (35850)Indication: Benign essential HTN On: 88-Ghj-298076:41 Request METABOLIC PANEL, COMPREHENSIVE (92587)Indication: Chronic kidney disease, stage III (moderate) On: 18-Vol-694962:41 Request CBC W/AUTO DIFF WBC (87911)Indication: Chronic kidney disease, stage III (moderate) On: 49-Oov-674210:41 Request CALCIFIDIOL (58815) VIT D 25Indication: Osteoporosis On: 37-Ong-408166:41 Request Vitamin B-12 (cyanocobalamin) (60318)Indication: Other vitamin B12 deficiency anemia On: 61-Zcp-275581:11 Request TSH (45173)Indication: Hypothyroidism On: 86-Dch-499244:10 Request METABOLIC PANEL, COMPREHENSIVE (14975)Indication: Benign essential HTN On: 97-Mkr-756773:10 Request LIPID PANEL (57501)Indication: Benign essential HTN On: 97-Atd-714357:10 Request PREALBUMIN (44148)Indication: Abnormal loss of weight On: 62-Nsl-096314:39 Request Vitamin B-12 (cyanocobalamin) (49460)Indication: Other vitamin B12 deficiency anemia On: 01-Nmv-154946:36 Request TSH (07101)Indication: Hypothyroidism On: 95-Gvz-596985:35 Request Vitamin B-12 (cyanocobalamin) (26115)Indication: Other vitamin B12 deficiency anemia On: 15-Ywl-70111:43 Request TSH (15941)Indication: Hypothyroidism On: 56-Qpk-79135:42 Request T3, FREE (TRIDOTHYRONINE) (09225)Indication: Hypothyroidism On: :42 Request T4, FREE (THYROXINE) (21189)Indication: Hypothyroidism On: 80-Uti-46973:42 Request CBC, Platelets & Auto Diff (88266)Indication: Osteomyelitis of pelvic region On: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
--- OUTSIDE RECORDS SUMMARY | 2018-03-25 11:34 | XMS RPT_ITS | Continuity of Care Document ---
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 Rehabilitation HospitalXvkypv9661 [facility] [id number] Information: DIFFICULT DRAW COMPREHENSIVE (40090) ALT (SGPT) 21 [iU]/L (Normal) Range: 0-32 [...] Glucose, Serum 63 mg/dL (Abnormal) Range: 65-99 9-Ffe-549989:04 Vitamin B-12 (cyanocobalamin) Comments: PATIENT WAS FASTINGPERFORMED BY: [facility]matePark[facility] Health Center1447 [facility] [id number] BY: [facility]6370 [facility] [id number] (37028) Vitamin B12 >2000 pg/mL (Abnormal) Range: 211-946 5-Bus-858154:04 CBC WITH MANUAL DIFF Comments: PATIENT WAS FASTINGPERFORMED BY: Augmate[address] [id number] BY: [facility]6370 [facility] [id number] (94792) Immature Grans (Abs) 0.0 {x10E3/uL} (Normal) Range: [...] 3.77-5.28 WBC 7.6 {x10E3/uL} (Normal) Range: 3.4-10.8 4-Oge-057694:04 LIPOPROTEIN, BLD, BY NMR Comments: PATIENT WAS FASTINGPERFORMED BY: BN [facility] Angqdmelaa2679 [facility] [id number] BY: CB [facility] Yvbprb5200 [facility] [id number] (87666) LP-IR Score 33 (Normal) Comments: INSULIN RESISTANCE MARKER <--Insulin Sensitive Insulin Resistant--> Percentile in Reference PopulationInsulin Resistance ScoreLP-IR Score Low 25th 50th 75th High <27 27 45 63 >63LP-IR Score is inaccurate if patient is non-fasting. .The LP-IR score is a laboratory developed i [facility] that has beenassociated with insulin resistance [...] were developed and their performance characteristicsdetermined by [employer]. These assays have not been cleared by [...] 1600 - 2000 Very High > 2000 79-Rcy-829120:36 UP (11786) Comments: PATIENT WAS FASTINGPERFORMED BY: SequellaMaria [facility]ham Health [id number] Please note: SPRCS (Normal) Comments: Protein electrophoresis scan will follow via computer, mail, orcourier delivery. M-Navarro, % Not Observed % (Normal) Gamma Globulin, U 26.0 % (Normal) Beta Globulin, U 31.1 % (Normal) Kuses-0-Gwharone, U 9.8 % (Normal) Vlads-7-Zdzpflaa, U 2.5 % (Normal) Albumin, U 30.7 % (Normal) Protein,Total,Urine 35.3 mg/dL (Normal) 75-Btr-690896:36 SPE (94984) Comments: PATIENT WAS FASTINGPERFORMED BY: [facility]70 Kepware TechnologiesMaria Parham Health [id number] Please note: SPRCS (Normal) Comments: Protein electrophoresis scan will follow via computer, mail, orcourier delivery. A/G Ratio 0.7 (Normal) Range: 0.7-1.7 Globulin, Total 4.2 g/dL (Abnormal) Range: 2.2-3.9 M-Navarro Not Observed g/dL (Normal) Gamma Globulin 1.0 g/dL (Normal) Range: 0.4-1.8 Beta Globulin 1.5 g/dL (Abnormal) Range: 0.7-1.3 Myaac-0-Xvmydkvf 1.3 g/dL (Abnormal) Range: 0.4-1.0 Bjvls-8-Rgmkujeo 0.4 g/dL (Normal) Range: 0.0-0.4 Albumin 3.0 g/dL (Normal) Range: 2.9-4.4 :36 Lipid Panel (42484) Comments: PATIENT WAS FASTINGPERFORMED BY: PrestoBoxMarlton Rehabilitation HospitalTtuefk4273 [facility] [id number] LDL/HDL Ratio 0.9 {ratio_units} (Normal) Range: 0.0-3.2 [...] Panel, Comprehensive Comments: PATIENT WAS FASTINGPERFORMED BY: [employer] Fmeonc3569 [facility] [id number] (93063) ALT (SGPT) 18 [iU]/L (Normal) Range: 0-32 [...] Glucose, Serum 103 mg/dL (Abnormal) Range: 65-99 62-Xjs-681712:36 CBC WITH MANUAL DIFF Comments: PATIENT WAS FASTINGPERFORMED BY: LabCoMarlton Rehabilitation HospitalHwyczn6058 [facility] [id number] Information: DIFFICULT DRAW (56866) Immature Grans (Abs) 0.0 {x10E3/uL} (Normal) Range: [...] (LACTATE DEHYDROGENASE) Comments: PATIENT WAS FASTINGPERFORMED BY: PrestoBoxMarlton Rehabilitation HospitalMvfppg4782 [facility] [id number] (58814) LDH 161 [iU]/L (Normal) Range: 119-226 :36 Vitamin B-12 (cyanocobalamin) Comments: PATIENT WAS FASTINGPERFORMED BY: PrestoBoxUNM Psychiatric CenterAdlaoi3218 [facility] [id number] (15148) Vitamin B12 717 pg/mL (Normal) Range: 211-946 90-Spm-241956:36 Iron Binding Capacity (TIBC) Comments: PATIENT WAS FASTINGPERFORMED BY: PrestoBoxUNM Psychiatric CenterLfzktq7264 [facility] [id number] (87358) Iron Saturation 7 % (Abnormal) Range: 15-55 Iron, Serum 29 ug/dL (Normal) Range: 27-139 UIBC 386 ug/dL (Abnormal) Range: 118-369 Iron Bind.Cap.(TIBC) 415 ug/dL (Normal) Range: 250-450 :36 Ferritin (73797) Comments: PATIENT WAS FASTINGPERFORMED BY: PrestoBoxMarlton Rehabilitation HospitalXtnatm5555 [facility] [id number] Ferritin, Serum 43 ng/mL (Normal) Range: 15-150 :36 Folic Acid Serum (87726) Comments: PATIENT WAS FASTINGPERFORMED BY: PrestoBoxMarlton Rehabilitation HospitalRwpgdp5733 [facility] [id number] Folate (Folic Acid), Serum 11.3 ng/mL (Normal) Comments: A serum folate concentration of less than 3.1 ng/mL isconsidered to represent clinical deficiency. 32-Shu-124688:36 TSH (69573) Comments: PATIENT WAS FASTINGPERFORMED BY: [facility]6370 [facility] [id number] TSH 0.530 {uIU/mL} (Normal) Range: 0.450-4.500 :36 T4, FREE (THYROXINE) (18599) Comments: PATIENT WAS FASTINGPERFORMED BY: [facility]6370 [facility] [id number] T4,Free(Direct) 1.90 ng/dL (Abnormal) Range: 0.82-1.77 :36 T3, FREE (TRIDOTHYRONINE) (11244) Comments: PATIENT WAS FASTINGPERFORMED BY: [facility]6370 [facility] [id number] Triiodothyronine,Free,Serum 1.9 pg/mL (Abnormal) Range: 2.0-4.4 :23 CBC W/Diff, Automated Comments: [facility] Srpjueyogk9256 [place], [address] Absolute Lymph 2.62 {X10_3/ul} (Normal) Range: 0.83-4.51 [...] Range: 4.4-11.0 24-Nov-20158:23 Comprehensive Metabolic Profil Comments: [facility] Kowhijkxvf[address] [place], [place], [id number] GAP 7 (Normal) Range: 5-15 CO2 27.0 [...] (Normal) Range: 70-110 :23 Free T3 Comments: [facility] Ypjjzfmeyc8264 [place] [address] FREE T3 1.3 pg/mL (Abnormal) Range: 2.18-3.98 :23 Lipase Comments: [place] [address] [address] [place] [id number] LIPASE 130 U/L (Normal) Range: 73-393 :23 T4 Free Direct Comments: [place] [address] [address] [place] [id number] T4 FREE DIRECT 1.45 ng/dL (Normal) Range: 0.76-1.46 :23 Thyroid Stim Hormone (TSH) Comments: [place] [address] [address] [place] [id number] TSH 17.10 {uIU/mL} (Abnormal) Range: 0.358-3.74 :22 CRP Comments: Order Date: 11/22/15Order Date: 11/22/15[place] [address], [id number] C-REACTIVE PROT 11.80 mg/L (Abnormal) Range: 0.0-3.0 Comments: C-Reactive Protein (CRP) provides useful information for thediagnosis, therapy and monitoring of inflammatory processesand associated diseases. For the evaluation of Relative Riskfor Cardiovascular Dise ase, a High Sensitivity CRP (HSCRP)should be ordered. :22 Erythrocyte Sed Rate Comments: Order Date: 11/22/15Interface Comments: Reason:Order Date: 11/22/15[place] [address], [id number] SED RATE 83 mm/h (Abnormal) Range: 0-30 9-Ovk-964639:29 Culture, Wound Comments: [place] [address] [address] [id number] CUW See Note (Normal) Comments: Order Date: 11/22/15 Gram StainGram Stain 1+ Red Cell Stroma Rare Gram positive cocci Wound CulturePossible skin contamination, further Identification and sensitivity will be performed only by lana breen's request. ORGANISM 1: Coag Negative StaphAmount Growth Rare :11 CBC W/Diff, Automated Comments: [facility] Bkbsieidec85[address] [place], [address] Absolute Lymph 2.98 {X10_3/ul} (Normal) Range: 0.83-4.51 [...] Patient Taking Vitamins or Folic Acid Supplements? [facility] Uxuwlolago06[address] [place], [place], [id number] GAP 7 (Normal) Range: 5-15 CO2 28.0 [...] Patient Taking Vitamins or Folic Acid Supplements? [facility] Wtqrwzsmlc3224 [address] [place], [place], [id number] CRP HIGH SENS 1.79 mg/L (Normal) Comments: Low Relative Risk of CVD <1.0 mg/L Average Relative Risk of CVD 1.0 - 3.0 mg/L High Relative Risk of CVD >3.0 mg/L :11 Erythrocyte Sed Rate Comments: [facility] Hrrjjxjvmc1381 [address] [place], [address] SED RATE 37 mm/h (Abnormal) Range: 0-30 :11 Folates, (Folic Acid) Comments: Is Patient Taking Vitamins or Folic Acid Supplements? [facility] Jovsrowegp7259 [address] [place], [address] FOLATES 30.20 ng/mL (Abnormal) Range: 3.1-17.5 :11 Lipid Profile Comments: Is Patient Taking Vitamins or Folic Acid Supplements? [facility] Bzhuznqbzh7284 [address] [place], [address] VLDL 16 [...] :11 Vitamin B12 694 pg/mL (Normal) Comments: [facility] Rwc[address]maogo[address] [place], [id number] Range: 211-911 :11 Vitamin D,25 Hydroxy Comments: [facility] Ejoxbwzfty[address] [place], [address] Vitamin D [...] D test results. :01 Protein+Creatinine Ratio,Urine Comments: [facility] Tqkprmjwhh7761 [facility] [address] [place], [place], [address] PROT:CRE RATIO 276 {mg/g_CRE} (Abnormal) Range: 0-200 PROTEIN,UR.RAN. 60.7 mg/dL (Abnormal) UR CREAT 220.00 mg/dL (Normal) :01 Renal Profile Comments: [facility] Vibdravboe6077 [facility] [place], [place], [address] CO2 30.0 mmol/L (Normal) Range: 21.0-32.0 CL [...] 7-18 GLU 97 mg/dL (Normal) Range: 70-110 5-Mzm-172373:20 Urinalysis, Complete Comments: Order Date: 09/23/15Has pt arrived? YHow was Urine Obtained? FUR WEIGHER TO SPECIFYC[facility] Atawjtrpbn60[address] [place], [address] YEAST-URINE 1+ {/hpf} (Normal) MUCUS, [...] CLARITY Sl. Cloudy (Normal) COLOR Yellow (Normal) 8-Nsb-870873:30 CBC W/Diff, Automated Comments: [facility] Luqkhjgvrl56[address] [place], [address] Absolute Lymph 2.14 {X10_3/ul} (Normal) [...] 4.2-5.4 WBC 9.9 K/mm3 (Normal) Range: 4.4-11.0 6-Tvj-896907:30 Comprehensive Metabolic Profil Comments: [facility] Vtqcpylwoc[address] [place], [address] GAP 9 (Normal) Range: 5-15 CO2 20.0 [...] 7-18 GLU 107 mg/dL (Normal) Range: 70-110 8-Wyb-421596:30 Lipase Comments: [facility] Yzlbhgqfwz17[address] [place], [address] LIPASE 542 U/L (Abnormal) Range: 73-393 :45 Vitamin B-12 (cyanocobalamin) Comments: PATIENT WAS FASTINGPERFORMED BY: Guruji LabMoviepilot6370 [facility] [id number] (72246) Vitamin B12 998 pg/mL (Abnormal) Range: 211-946 88-Ozw-18775:45 METABOLIC PANEL, COMPREHENSIVE Comments: PATIENT WAS FASTINGPERFORMED BY: Guruji [employer] Hlnlcq5428 [facility] [id number] (57316) ALT (SGPT) 48 [iU]/L (Abnormal) Range: 0-32 [...] Glucose, Serum 98 mg/dL (Normal) Range: 65-99 56-Yho-91455:45 CBC with auto diff Comments: PATIENT WAS FASTINGPERFORMED BY: LabCoMarlton Rehabilitation HospitalQlryyp8988 [facility] [id number] Information: [id number] (66073) Immature Grans (Abs) 0.0 {x10E3/uL} (Normal) Range: [...] 3.77-5.28 WBC 8.3 {x10E3/uL} (Normal) Range: 3.4-10.8 64-Xte-75151:45 TSH (48340) Comments: PATIENT WAS FASTINGPERFORMED BY: [facility] Cephoq3779 [facility] [id number] TSH 25.460 {uIU/mL} (Abnormal) Range: 0.450-4.500 75-Ulu-692352:16 Renal Profile Comments: [facility] Gfmaufozdz4[address] [place], [place], [address] CO2 23.0 mmol/L (Normal) Range: 21.0-32.0 CL [...] 7-18 GLU 108 mg/dL (Normal) Range: 70-110 83-Bun-320514:07 Culture, Urine Comments: [facility] Bcnjjuvwdl7[address] [place], [place], [address] CUUR See Note (Normal) Comments: Urine CultureORGANISM 1: Streptococcus mitis/ oralisColony Count 50,000-80,000 Streptococcus mitis/ oralis: REACTION Ampicillin $ <=0.25 S Benzylpenicillin NF 8 R Ceftriaxone (other dx) $ <=0.12 S Levofloxacin $ 8 R Tetracycline NF >=16 R Vancomycin $ 0.25 S(NF) indicates non-formulary drug at [facility]. Approval by Infectious Disease Specialist required b efore non-formulary drugs may be ordered and/or dispensed. * CLSI guidelines does not recommend testing of cephalosporins. This interpretation is deduced from Beta-lactam/penicillin results. :58 CALCIFIDIOL (08042) VIT D 25 Comments: PATIENT NOT FASTINGPERFORMED BY: [facility]mateUniversity [facility] Hospital6370 [facility] [id number] Vitamin D, 25-Hydroxy 43.7 ng/mL (Normal) Range: 30.0-100.0 Comments: Vitamin D deficiency has been defined by the [place] ofMer[facility] Health Perrysburg Hospitalcine and an Endocrine Society practice guideline as alevel of serum 25-OH vitamin D less than 20 ng/mL (1,2).The Endocrine Society went on to further define vitamin Dinsufficiency as a level between 21 and 29 ng/mL (2).1. IOM ([place] of Medicine). 2010. Dietary reference intakes for calcium and D. [place]: The National Academies Press.2. Jsutin MF, Jazmyn NC, Aniya CANO, et al. Evaluation, treatment, and prevention of vitamin D deficiency: an Endocrine Society clinical practice guideline. JCEM. 2010; 96(7):1911-30. :58 METABOLIC PANEL, Comments: PATIENT NOT FASTINGPERFORMED BY: [facility]6370 [facility] [id number] Information: [id number] DIFFICULT D RAW; apt. 4-25 COMPREHENSIVE (86572) ALT (SGPT) 11 [iU]/L (Normal) Range: 0-32 [...] Glucose, Serum 95 mg/dL (Normal) Range: 65-99 79-Qou-631658:59 Metabolic Panel, Basic Comments: PATIENT NOT FASTINGPERFORMED BY: LabCoMarlton Rehabilitation HospitalWteeft4797 [facility] [id number] Information: [id number] (02103) Calcium, Serum 7.8 mg/dL (Abnormal) Range: 8.7-10.3 [...] (Abnormal) Range: 65-99 Comments: Client Requested Flag 30-Fxl-857283:23 Urinalysis, Office (30361) UA - LEUKOCYTE ESTERASE Trace (Normal) UA - NITRITE Negative (Normal) URINE UROBILINGN EVY TIMED Normal mg/dL (Normal) UA - PROTEIN 30 mg/dL (Normal) UA - PH 6.0 (Normal) UA - BLOOD Negative (Normal) UA - SPECIFIC GRAVITY 1.025 (Normal) UA - KETONES Negative mg/dL (Normal) UA - BILIRUBIN Negative (Normal) UA - GLUCOSE Negative (Normal) 6-Tlp-713209:01 Metabolic Panel, Comments: PATIENT NOT FASTINGPERFORMED BY: CRISTA LabCoMarlton Rehabilitation HospitalDagtfa8982 [facility] [id number] Information: [id number] Comprehensive (19603) ALT (SGPT) 52 [iU]/L (Abnormal) Range: 0-32 [...] cells when received.This may adversely affect serumChemistries. 03-Qco-672549:30 Metabolic Panel, Comments: PATIENT NOT FASTINGPERFORMED BY: [employer] Lqbewv9338 [facility] [id number] Information: [id number] Comprehensive (42665) ALT (SGPT) 9 [iU]/L (Normal) Range: 0-32 [...] (Prothrobim Time) Comments: PATIENT NOT FASTINGPERFORMED BY: [employer] Xwahna9846 [facility] [id number] Information: [id number] (52515) Prothrombin Time 12.6 {sec} (Abnormal) Range: 9.1-12.0 INR 1.2 (Normal) Range: 0.8-1.2 Comments: Reference interval is for non-anticoagulated patients. . Suggested INR therapeutic range for Vitamin K anta gonist therapy: Standard Dose (moderate intensity therapeutic range): 2.0 - 3.0 Higher intensity therapeutic range 2.5 - 3.5 20-Jfo-800283:50 Urinalysis, Office (61497) UA - LEUKOCYTE ESTERASE Trace (Normal) UA - NITRITE Negative (Normal) URINE UROBILINGN EVY TIMED Normal mg/dL (Normal) UA - PROTEIN 100 mg/dL (Normal) UA - PH 6.0 (Normal) UA - BLOOD Non Hemolyzed Trace (Normal) UA - SPECIFIC GRAVITY 1.030 (Abnormal) UA - KETONES Negative mg/dL (Normal) UA - BILIRUBIN Negative (Normal) UA - GLUCOSE Negative (Normal) 78-Yzp-583037:26 URINE CARMEN CULTURE (EVY Comments: PATIENT NOT FASTINGPERFORMED BY: SequellaMaria [facility]ham Health [id number] Information: SRC:[facility] [id number] COL COUNT) (57952) Result 1 NG36 (Normal) Comments: No growth in 36 - 48 hours. Urine Culture,Comprehensive Final report (Normal) 9-Jls-569574:08 Vitamin B-12 (cyanocobalamin) Comments: in six months (approximately); PATIENT WAS FASTINGPERFORMED BY: [facility]70 Kepware TechnologiesMaria [facility] Health [id number] (41898) Vitamin B12 433 pg/mL (Normal) Range: 211-946 8-Qdl-802635:08 CBC W/AUTO DIFF WBC Comments: in six months (approximately); PATIENT WAS FASTINGPERFORMED BY: [facility]70 Kepware TechnologiesMaria [facility] Health [id number] Information: [id number] (12074) Immature Grans (Abs) 0.0 {x10E3/uL} (Normal) Range: [...] 3.77-5.28 WBC 5.2 {x10E3/uL} (Normal) Range: 3.4-10.8 2-Pgh-722194:08 TSH (54481) Comments: in six months (approximately); PATIENT WAS FASTINGPERFORMED BY: SafetyTatMarlton Rehabilitation HospitalYxjfbk3010 [facility] [id number] TSH 0.802 {uIU/mL} (Normal) Range: 0.450-4.500 62-Shd-307609:38 METABOLIC PANEL, Comments: in six months (approximately); PATIENT NOT FASTINGPERFORMED BY: PrestoBoxMarlton Rehabilitation HospitalLyibkc7042 [facility] [id number] Information: [id number] COMPREHENSIVE (64397) ALT (SGPT) 10 [iU]/L (Normal) Range: 0-32 [...] Glucose, Serum 91 mg/dL (Normal) Range: 65-99 9-Wdf-218999:08 LIPID PANEL (77817) Comments: in six months (approximately); PATIENT WAS FASTINGPERFORMED BY: LabSaint [facility] Zavela0168 [facility] [id number]; apt. 04-04-15 LDL/HDL Ratio 0.8 {ratio_units} (Normal) [...] Cholesterol, Total 205 mg/dL (Abnormal) Range: 100-199 7-Jpf-507965:08 PT (Prothrobim Time) (56722) Comments: today; PATIENT WAS FASTINGPERFORMED BY: [employer] Pksvgs4995 [facility] [id number]; inr not need addressed patient on Eliqus Prothrombin Time 11.0 {sec} (Normal) Range: 9.1-12.0 INR 1.1 (Normal) Range: 0.8-1.2 Comments: Reference interval is for non-anticoagulated patients. . Suggested INR therapeutic range for Vitamin K anta gonist therapy: Standard Dose (moderate intensity therapeutic range): 2.0 - 3.0 Higher intensity therapeutic range 2.5 - 3.5 4-Xup-564429:08 POTASSIUM SERUM (99514) Comments: today; PATIENT WAS FASTINGPERFORMED BY: Mengcao70 [facility] [id number] Potassium, Serum 4.4 mmol/L (Normal) Range: 3.5-5.2 12-Qvr-20433:41 Comp. Metabolic Panel (14) Comments: PATIENT NOT FASTINGPERFORMED BY: [employer] Gejlah8233 [facility] [id number] Information: [id number] DIFFICULT D RAW ALT (SGPT) 10 [iU]/L [...] Microscopic Examination Comments: PATIENT NOT FASTINGPERFORMED BY: SequellaMaria [facility] [id number] Bacteria Few (Normal) Mucus Threads Present (Normal) Epithelial Cells (non renal) 0-10 {/hpf} (Normal) Range: 0 - 10 RBC 0-2 {/hpf} (Normal) Range: 0 - 2 WBC >30 {/hpf} (Abnormal) Range: 0 - 5 :41 Urinalysis, Complete Comments: PATIENT NOT FASTINGPERFORMED BY: SequellaMaria [facility] [id number] Microscopic Examination See below: (Normal) Comments: Microscopic was indicated and was performed. Nitrite, Urine Negative (Normal) Urobilinogen,Semi-Qn 0.2 mg/dL (Normal) Range: 0.0-1.9 Bilirubin Negative (Normal) Occult Blood Negative (Normal) Ketones Negative (Normal) Glucose Negative (Normal) Protein Trace (Normal) WBC Esterase 2+ (Abnormal) Appearance Cloudy (Abnormal) Urine-Color Yellow (Normal) pH 6.0 (Normal) Range: 5.0-7.5 Specific Guthrie 1.015 (Normal) Range: 1.005-1.030 53-Ssj-617885:49 Prothrombin Time (PT) Comments: PATIENT NOT FASTINGPERFORMED BY: SafetyTat YebolMaria Parham Health [id number] Information: [id number] Prothrombin Time 28.9 {sec} (Abnormal) Range: 9.1-12.0 INR 2.7 (Abnormal) Range: 0.8-1.2 Comments: Reference interval is for non-anticoagulated patients. . Suggested INR therapeutic range for Vitamin K anta gonist therapy: Standard Dose (moderate intensity therapeutic range): 2.0 - 3.0 Higher intensity therapeutic range 2.5 - 3.5 61-Diq-226471:49 Prothrombin Time (PT) Comments: PATIENT NOT FASTINGPERFORMED BY: [address] [id number] Information: [id number] Prothrombin Time 31.0 {sec} (Abnormal) Range: 9.1-12.0 INR 2.8 (Abnormal) Range: 0.8-1.2 Comments: Reference interval is for non-anticoagulated patients. . Suggested INR therapeutic range for Vitamin K anta gonist therapy: Standard Dose (moderate intensity therapeutic range): 2.0 - 3.0 Higher intensity therapeutic range 2.5 - 3.5 68-Yvv-311252:28 Eosinophil, Urine (42893) Comments: PATIENT NOT FASTINGPERFORMED BY: [address] [id number] Information: [id number] Eosinophil, Urine No Eosinophils Seen % Comments: <5% few or none seenReceived at room temperature;interpret result with caution. (Normal) :28 Eosinophil, Urine (39884) Comments: PATIENT NOT FASTINGPERFORMED BY: [address] [id number] Information: [id number] Eosinophil, Urine No Eosinophils Seen % Comments: <5% few or none seenReceived at room temperature;interpret result with caution. (Normal) :54 Basic Metabolic Profile (BMP) Comments: Test performed at:[facility] Zfpgrbmsza450[address] [place] [address] GAP 5 (Normal) Range: 5-15 CO2 27.0 [...] :54 Microalb:Creat Ratio,Random UR Comments: Test performed at:[facility] Lixlvhlld[address] [place] [address] MALB:CREAT 44.5 {mg/g_CRE} (Abnormal) MICROALBUMIN,UR 52.7 mg/L (Normal) UR CREAT 118.2 mg/dL (Normal) :54 Urinalysis, Routine (Dipstick) Comments: How was Urine Obtained? CLEAN CATCHTest performed at:[facility] Gahbuhmoty2404 [place] [address] LEUK ESTERASE 100 /ul (Abnormal) [...] (Normal) COLOR Yellow (Normal) :07 Eosinophil, Urine (93363) Comments: PATIENT NOT FASTINGPERFORMED BY: LabCoMarlton Rehabilitation HospitalXriein2812 Anand [facility] [id number] Information: [id number] Eosinophil, Urine 5 % (Normal) Comments: <5% few or none seenReceived at room temperature;interpret result with caution. 31-Tvj-919132:10 MICROALBUMIN: CREATININE RATIO Comments: recheck in 6 weeks; PATIENT NOT FASTINGPERFORMED BY: [employer] Rrdzjn2182 [facility] [id number] (81047) AND (45717) Microalb/Creat Ratio 92.2 {mg/g_creat} (Abnormal) Range: 0.0-30.0 Microalbumin, Urine 180.9 ug/mL (Abnormal) Range: 0.0-17.0 Creatinine, Urine 196.2 mg/dL (Normal) Range: 15.0-278.0 06-Yny-323156:10 Metabolic Panel, Basic Comments: recheck in 6 weeks; PATIENT NOT FASTINGPERFORMED BY: [facility]mateSaint [facility] Liejyt8851 [facility] [id number] Information: [id number] (48129) Calcium, Serum 9.2 mg/dL (Normal) Range: 8.7-10.3 [...] Glucose, Serum 89 mg/dL (Normal) Range: 65-99 0-Ubz-830724:21 CALCIFIDIOL (28017) VIT D 25 Comments: PATIENT NOT FASTINGPERFORMED BY: [facility]mateUniversity [facility] Hospital6370 [facility] [id number] Vitamin D, 25-Hydroxy 35.5 ng/mL (Normal) Range: 30.0-100.0 Comments: Vitamin D deficiency has been defined by the [place] of[place] and an Endocrine Society practice guideline as alevel of serum 25-OH vitamin D less than 20 ng/mL (1,2).The Endocrine Society went on to further define vitamin Dinsufficiency as a level between 21 and 29 ng/mL (2).1. IOM ([place] of Medicine). 2010. Dietary reference intakes for calcium and D. [place]: The National Academies Press.2. Jutsin MF, Jazmyn FOSTER, Aniya CANO, et al. Evaluation, treatment, and prevention of vitamin D deficiency: an Endocrine Society clinical practice guideline. JCEM. 2010; 96(7):1911-30. :22 Total Protein,24 Hour Urine Comments: PATIENT NOT FASTINGPERFORMED BY: [facility]70 Kep[employer] TechnologiesMaria Par[facility] Health [id number] (99623) Prot,24hr calculated 196.5 {mg/24_hr} (Abnormal) Range: 30.0-150.0 Protein,Total,Urine 39.3 mg/dL (Abnormal) Range: 0.0-15.0 :22 CREATININE CLEARANCE Comments: PATIENT NOT FASTINGPERFORMED BY: [facility]70 Anand [facility] [id number] Information: SRC:UR [id number] START- 4@630AM YOHAN Peres (53539) Creatinine Clearance 29 mL/min (Abnormal) Range: 88-128 [...] Comments: standing order; PATIENT NOT FASTINGPERFORMED BY: [facility]70 [facility] [id number] Information: [id number] (43994) Prothrombin Time 26.3 {sec} (Abnormal) Range: 9.1-12.0 INR 2.4 (Abnormal) Range: 0.8-1.2 Comments: Reference interval is for non-anticoagulated patients. . Suggested INR therapeutic range for Vitamin K anta gonist therapy: Standard Dose (moderate intensity therapeutic range): 2.0 - 3.0 Higher intensity therapeutic range 2.5 - 3.5 16-Tgm-024318:36 Request Problem Comments: PATIENT NOT FASTINGPERFORMED BY: [facility] Qbefeb2018 Anand RoadDublin [place] [id number] 38-Wmu-819706:23 Vitamin B-12 (cyanocobalamin) Comments: PATIENT NOT FASTINGPERFORMED BY: [facility] Cjlpew5437 Anand [facility] [place] [id number] (32937) 02-Ata-550091:23 TSH (24450) Comments: PATIENT NOT FASTINGPERFORMED BY: [facility] Vaztfv9329 Anand [facility] AlmaDublin [place] [id number] 33-Eps-344453:23 PT (Prothrobim Time) (83660) Comments: INR standing order do today also; PATIENT NOT FASTINGPERFORMED BY: [facility] Zuqtjy7282 Anand [facility] [place] [id number] INR 1.8 (Abnormal) Range: 0.8-1.2 Comments: Reference interval is for non-anticoagulated patients. . Suggested INR therapeutic range for Vitamin K anta gonist therapy: Standard Dose (moderate intensity therapeutic range): 2.0 - 3.0 Higher intensity therapeutic range 2.5 - 3.5 Prothrombin Time 18.4 {sec} (Abnormal) Range: 9.1-12.0 20-Jtf-628957:23 METABOLIC PANEL, COMPREHENSIVE Comments: PATIENT NOT FASTINGPERFORMED BY: [facility] Cdzdli2071 Anand [facility] [place] [id number] (24838) ALT (SGPT) 13 [iU]/L (Normal) Range: 0-32 [...] Glucose, Serum 75 mg/dL (Normal) Range: 65-99 20-Xah-527828:23 LIPID PANEL (66030) Comments: PATIENT NOT FASTINGPERFORMED BY: [facility]70 Anand [facility] [id number] LDL/HDL Ratio 1.1 {ratio_units} (Normal) Range: 0.0-3.2 LDL Cholesterol Calc 92 mg/dL (Normal) Range: 0-99 HDL Cholesterol 82 mg/dL (Normal) Comments: According to ATP-III Guidelines, HDL-C >59 mg/dL is considered anegative risk factor for CHD. VLDL Cholesterol Alesha 38 mg/dL (Normal) Range: 5-40 Cholesterol, Total 212 mg/dL (Abnormal) Range: 100-199 Triglycerides 192 mg/dL (Abnormal) Range: 0-149 42-Jjd-022987:23 CBC WITH MANUAL DIFF Comments: PATIENT NOT FASTINGPERFORMED BY: SafetyTatUNM Psychiatric CenterKowybq4110 [facility] [id number] Information: [id number], [id number]: [id number] (42034) Immature Grans (Abs) 0.0 {x10E3/uL} (Normal) Range: [...] 3.77-5.28 WBC 6.5 {x10E3/uL} (Normal) Range: 3.4-10.8 37-Siu-269810:23 Sed Rate Erythrocyte (12610) Comments: PATIENT NOT FASTINGPERFORMED BY: LabCoMarlton Rehabilitation HospitalHsixuo1329 [facility] [id number] Sedimentation Rate-Westergren 16 mm/h (Normal) Range: 0-40 12-Yfe-538276:50 CBC with manual diff Comments: recheck in 4 weeks; PATIENT NOT FASTINGPERFORMED BY: [facility] Mzfnhg5698 [facility] [id number] Information: ADD [id number] AND DRAW FEE 99 2010 (32069) Immature Grans (Abs) 0.0 {x10E3/uL} (Normal) Range: [...] (Normal) Range: 3.4-10.8 :50 Sed Rate Erythrocyte (55858) Comments: re check in 4 weeks; PATIENT NOT FASTINGPERFORMED BY: LabCoMarlton Rehabilitation HospitalKohitf2239 [facility] [id number] Sedimentation Rate-Westergren 39 mm/h (Normal) Range: 0-40 :48 PREALBUMIN (15955) Comments: PATIENT NOT FASTINGPERFORMED BY: LabUniversity [facility] Hospital6370 [facility] [id number] Prealbumin 23 mg/dL (Normal) Range: 20-40 :48 Magnesium (77173) Comments: PATIENT NOT FASTINGPERFORMED BY: [facility]6370 [facility] [id number] Magnesium, Serum 1.8 mg/dL (Normal) Range: 1.6-2.6 :48 Metabolic Panel, Comments: PATIENT NOT FASTINGPERFORMED BY: LabUniversity [facility] Hospital6370 [facility] [id number] Information: [id number] [facility] (65155) ALT (SGPT) 12 [iU]/L (Normal) Range: 0-32 [...] Glucose, Serum 86 mg/dL (Normal) Range: 65-99 62-Vvf-507637:15 CBC With Differential/Platelet Comments: PATIENT WAS FASTINGPERFORMED BY: CB [facility] Vnlwlg2583 [place] [id number] BY: BN [facility] Awtowcvkjv3027 [facility] [id number] Immature Grans (Abs) 0.0 {x10E3/uL} (Normal) Range: [...] 3.77-5.28 WBC 5.9 {x10E3/uL} (Normal) Range: 4.0-10.5 66-Jpu-304812:15 Comp. Metabolic Panel Comments: PATIENT WAS FASTINGPERFORMED BY: SafetyTatMarlton Rehabilitation HospitalTiislz0694 [facility] [id number] BY: Augmate[address] [id number] (14) ALT (SGPT) 7 [iU]/L (Normal) Range: [...] 16.5 umol/L Comments: PATIENT WAS FASTINGPERFORMED BY: SafetyTatMarlton Rehabilitation HospitalRutoda8891 [facility] [id number] BY: [address] [id number] :15 Plasma (Abnormal) Range: 0.0-15.0 24-Scs-058850:15 Lipid Panel With LDL/HDL Comments: PATIENT WAS FASTINGPERFORMED BY: PrestoBoxJorge [place] 3579770 [facility] [id number] BY: [address] [id number] Ratio LDL/HDL Ratio 0.7 {ratio_units} Range: 0.0-3.2 [...] nmol/L (Normal) Comments: PATIENT WAS FASTINGPERFORMED BY: PrestoBoxJ[place] 3579770 [facility] [id number] BY: [address] [id number] 310:15 Serum Range: 73-376 Comments: The reference range for methylmalonic acid has been set at +3sd abovethe mean for healthy blood bank donors. In the clinical assessment ofpatients with megaloblastic anemias a cutoff of +3sd provides gr eaterspecificity in the diagnosis of the vitamin deficiency states,despite the sacrifice of some sensitivity. 52-Xkb-088985:15 Prothrombin Time (PT) Comments: PATIENT WAS FASTINGPERFORMED BY: [place] 8777370 [facility] [id number] BY: [address] [id number] Prothrombin Time 20.5 {sec} (Abnormal) Range: 9.1-12.0 INR 2.0 (Abnormal) Range: 0.8-1.2 Comments: Reference interval is for non-anticoagulated patients. . Suggested INR therapeutic range for Vitamin K anta gonist therapy: Standard Dose (moderate intensity therapeutic range): 2.0 - 3.0 Higher intensity therapeutic range 2.5 - 3.5 TSH 0.706 {uIU/mL} Comments: PATIENT WAS FASTINGPERFORMED BY: PrestoBoxJ[place] 3579770 [facility] [id number] BY: [address] [id number] :15 (Normal) Range: 0.450-4.500 :15 Vitamin B12 and Folate Comments: PATIENT WAS FASTINGPERFORMED BY: LabRachel Ville 3335670 [facility] [id number] BY: [address] [id number] Folate (Folic Acid), >19.9 ng/mL (Normal) Comments: A serum folate concentration of less than 3.1 ng/mL isconsidered to represent clinical deficiency. Serum Vitamin B12 561 pg/mL (Normal) Range: 211-946 Vitamin D, 49.7 ng/mL (Normal) Comments: PATIENT WAS FASTINGPERFORMED BY: PrestoBoxMarlton Rehabilitation HospitalYozojn3799 [facility] [id number] BY: [address] [id number] :15 25-Hydroxy Range: 30.0-100.0 Comments: Vitamin D deficiency has been defined by the [place] of[place] and an Endocrine Society practice guideline as alevel of serum 25-OH vitamin D less than 20 ng/mL (1,2).The Endocrine Society went on to further define vitamin Dinsufficiency as a level between 21 and 29 ng/mL (2).1. IOM ([place] of [place]). 2010. Dietary reference intakes for calcium and D. [place]: The National Academies Press.2. Justin MF, Jazmyn FOSTER, Aniya CANO, et al. Evaluation, treatment, and prevention of vitamin D deficiency: an Endocrine Society clinical practice guideline. JCEM. 2010; 96(7):1911-30. 75-Gqe-576179:20 PT (Prothrobim Time) (69921) Comments: standing order; PATIENT NOT FASTINGPERFORMED BY: [employer]6370 [facility] [id number] Prothrombin Time 28.6 {sec} (Abnormal) Range: 9.1-12.0 INR 2.8 (Abnormal) Range: 0.8-1.2 Comments: Reference interval is for non-anticoagulated patients. . Suggested INR therapeutic range for Vitamin K anta gonist therapy: Standard Dose (moderate intensity therapeutic range): 2.0 - 3.0 Higher intensity therapeutic range 2.5 - 3.5 55-Buq-647382:30 CBC With Differential/Platelet Comments: PERFORMED BY: [employer]6370 [facility] [id number] BY: LabNeuroVigilRussell Ville 405017 [facility] [id number] Information: PER [facility] 03-07-12 RANDOM U Immature Grans (Abs) [...] 3.77-5.28 WBC 9.1 {x10E3/uL} (Normal) Range: 4.0-10.5 86-Nks-048052:30 Chromium, Urine Comments: PERFORMED BY: [employer] Qoidjf7407 [facility] [id number] BY: [address] [id number] Chromium/Creat Ratio 0.2 {ug/g_creat} Range: 0.0-4.9 (Normal) Comments: Environmental Exposure: 0.0 - 4.9 Occupational Exposure: RAEGAN 25.0 Chromium, Urine 0.3 ug/L (Normal) Range: 0.1-2.0 Comments: Detection Limit = 0.10 Ferritin, Serum 64 ng/mL (Normal) Comments: PERFORMED BY: [employer]6370 [facility] [id number] BY: [address] [id number] 214:30 Range: 13-150 Homocyst(e)ine, Plasma 32.2 umol/L Comments: PERFORMED BY: [employer] [facility] [id number] BY: [address] [id number] 214:30 (Abnormal) Range: 0.0-15.0 Iron, Serum 38 ug/dL (Normal) Comments: PERFORMED BY: [employer] Hg[address] [place] [address] [id number] BY: [address] [id number] 214:30 Range: 35-155 Magnesium, Serum 1.8 mg/dL (Normal) Comments: PERFORMED BY: [employer] Vgmjyb0957 Anand RoadDublin [place] [id number] BY: [address] [id number] 214:30 Range: 1.6-2.6 20-Feb- Methylmalonic Acid, 525 nmol/L (Abnormal) Comments: PERFORMED BY: [employer] Eydkct7749 Anand RoadDublin [place] [id number] BY: [address] [id number] 214:30 Serum Range: 73-376 Comments: Verified by repeat analysisThe reference range for methylmalonic acid has been set at +3sd abovethe mean for healthy blood bank donors. In the clinical assessment ofpatients with megaloblastic anemi as a cutoff of +3sd provides greaterspecificity in the diagnosis of the vitamin deficiency states,despite the sacrifice of some sensitivity. Phosphorus, Serum 3.6 mg/dL (Normal) Comments: PERFORMED BY: [employer] Pqtphz1280 Anand RoadDublin [place] [id number] BY: [address] [id number] 214:30 Range: 2.5-4.5 PTH, Intact 32 pg/mL (Normal) Comments: PERFORMED BY: [employer] Qjmdpf2249 Anand RoadDublin [place] [id number] BY: [address] [id number] 214:30 Range: 15-65 20-Feb- Sedimentation 21 mm/h (Normal) Comments: PERFORMED BY: [employer] Kzkmap3764 Anand RoadDublin [place] [id number] BY: [address] [id number] 214:30 Rate-Westergren Range: 0-40 20-Feb- Vitamin A, Serum 88 ug/dL (Abnormal) Comments: PERFORMED BY: [employer] Szompa7068 Anand RoadDublin [place] [id number] BY: [address] [id number] 214:30 Range: 18-77 :30 Vitamin B12 and Folate Comments: PERFORMED BY: [place] 8777370 [facility] [id number] BY: [address] [id number] Folate (Folic Acid), >19.9 ng/mL (Normal) Comments: A serum folate concentration of less than 3.1 ng/mL isconsidered to represent clinical deficiency. Serum Vitamin B12 326 pg/mL (Normal) Range: 211-946 Vitamin D, 21.0 ng/mL Comments: PERFORMED BY: [place] 8777370 [facility] [id number] BY: [address] [id number] :30 25-Hydroxy (Abnormal) Range: 30.0-100.0 Comments: Vitamin D deficiency has been defined by the [place] of[place] and an Endocrine Society practice guideline as alevel of serum 25-OH vitamin D less than 20 ng/mL (1,2).The Endocrine Society went on to further define vitamin Dinsufficiency as a level between 21 and 29 ng/mL (2).1. IOM ([place] of Medicine). 2010. Dietary reference intakes for calcium and D. [place]: The National Academies Press.2. Justin MF, Jazmyn FOSTER, Aniya CANO, et al. Evaluation, treatment, and prevention of vitamin D deficiency: an Endocrine Society clinical practice guideline. JCEM. 2010; 96(7):1911-30. :30 Zinc, Urine Comments: PERFORMED BY: [place] 8777370 [facility] [id number] BY: [address] [id number] Zinc/Creat. Ratio 497 {ug/g_creat} (Normal) Range: 100-900 Creatinine(Rehabilitation Services Coordinator),U 1.95 g/L (Normal) Range: 0.30-3.00 Comments: Detection Limit = 0.10 Zinc, Urine 970 ug/L (Normal) Comments: Detection Limit = 10 88-Udz-77647:19 ABDOMEN/PELVIS WITH CONTRAST Radiology Report See Note [...] Sarkar D.O.December 05, 2011 at 7:36:04 PM [id number] Signed IF/IF If you are the referring physician and would like to consult with theradiologist who provided this interpretation, please contact Fabian Sarkar D.O.at [phone]. If this radiologist is unavailable, you will be directedto another radiologist to assist. If you are a patient with a question regarding this report, pleasecontactyour referring physician directly. Professional Interpretation Provided By: [employer], Phone , Thes e documents contain legally [...] on 12/05/111942 Sign by: Fabian Sarkar DO 7-Wkq-549488:10 Metabolic Panel, Comprehensive Comments: copy to Dr. shukla; PATIENT NOT FASTINGPERFORMED BY: LabUniversity [facility]6370 [facility] [id number] (72857) ALT (SGPT) 16 [iU]/L (Normal) Range: 0-40 [...] Glucose, Serum 85 mg/dL (Normal) Range: 65-99 4-Vjg-937956:10 CBC, Platelets & Auto Diff Comments: PATIENT NOT FASTINGPERFORMED BY: CRISTA [facility] Iyypho7444 [facility] [id number] Information: [id number] (44078) Immature Grans (Abs) 0.0 {x10E3/uL} (Normal) Range: [...] 3.77-5.28 WBC 8.1 {x10E3/uL} (Normal) Range: 4.0-10.5 1-Gho-817452:10 Sed Rate Erythrocyte (69448) Comments: PATIENT NOT FASTINGPERFORMED BY: Guruji [facility] Lfgevd3709 [facility] [id number] Sedimentation Rate-Westergren 53 mm/h (Abnormal) Range: 0-40 :14 Basic Metabolic Panel (8) Comments: PERFORMED BY: Guruji [facility] Dkvdvr0333 [facility] [id number] Calcium, Serum 9.9 mg/dL (Normal) Range: 8.6-10.2 [...] Protein Electro, Random Urine Comments: PERFORMED BY: [employer]6370 [facility] [id number] Please note: SPRCS (Normal) Comments: Protein electrophoresis scan will follow via computer, mail, orcourier delivery. Letub-5-Gxcicpta, U 8.9 % (Normal) Beta Globulin, U 25.6 % (Normal) Gamma Globulin, U 26.9 % (Normal) M-Navarro, % Not Observed % (Normal) Albumin, U 36.2 % (Normal) Riapg-3-Mokjgspd, U 2.5 % (Normal) Protein,Total,Urine 40.0 mg/dL (Abnormal) Range: 0.0-15.0 :14 Protein Electro.,S Comments: PERFORMED BY: [employer] [facility] [id number] Please note: SPRCS (Normal) Comments: Protein electrophoresis scan will follow via computer, mail, orcourier delivery. 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6370 [place], [place] [id number] RIBA RESULT <TEST NOT PERFORMED> (Normal) :10 [...] Indication: Low back pain Planned Observations CALCIFIDIOL (92704) VIT D 25Indication: Vitamin D deficiency On: 11-Vfb-469945:36 Request Lipid Panel (54250)Indication: Hypothyroidism On: :36 Request URINALYSIS (45188)Indication: Chronic kidney disease, stage III (moderate) On: 18-Omp-699863:36 Request Metabolic Panel, Comprehensive (60714)Indication: Chronic kidney disease, stage III (moderate) On: :36 Request TSH (83204)Indication: Hypothyroidism On: :35 Request PARATHORMONE (04596)Indication: Chronic kidney disease, stage III (moderate) On: 25-Vrp-118415:35 Request MICROALBUMIN: CREATININE RATIO (25646) AND (10416)Indication: Chronic kidney disease, stage III (moderate) On: :35 Request CBC with auto diff (39390)Indication: Chronic kidney disease, stage III (moderate) On: :35 Request METABOLIC PANEL, COMPREHENSIVE (50593)Indication: Chronic kidney disease, stage III (moderate) On: 2-Xeh-031682:59 Request CALCIFIDIOL (24844) VIT D 25Indication: Vitamin D deficiency On: 6-Cyy-484822:59 Request CARMEN CULTURE-OTHER (50147)Indication: Vaginal discharge On: 04-Nof-053518:46 Request Comments: vagina BACT CULTURE ANY-ANAEROBIC (97194)Indication: Vaginal discharge On: 45-Vag-804516:13 Request Comments: of vaginal fluid PHOSPHORUS (14046)Indication: Chronic kidney disease, stage III (moderate) On: 64-Uko-509248:26 Request Comments: do before November office visit PHOSPHORUS (41764)Indication: Malnutrition On: 23-Aug-20179:21 Request Phosphorus (25006)Indication: Malnutrition On: 35-Qhf-492021:42 Request Magnesium (78616)Indication: Malnutrition On: 67-Ydd-131454:42 Request C-Reactive Protein (26643)Indication: Osteomyelitis of pelvic region On: 92-Cjj-292066:04 Request METABOLIC PANEL, COMPREHENSIVE (94712)Indication: Benign essential HTN On: 95-Qcb-070504:52 Request URIC ACID BLOOD (91824)Indication: Abnormal blood chemistry On: 94-Abp-494275:52 Request Iron (78510)Indication: Anemia On: 20-Sni-351263:44 Request Iron Binding Capacity (TIBC) (12019)Indication: Anemia, chronic disease On: :53 Request Comments: in 6 weeks Iron (42149)Indication: Anemia, chronic disease On: :53 Request Comments: in 6 weeks Metabolic Panel, Comprehensive (74317)Indication: Benign essential HTN On: :52 Request Comments: now and in 6 weeks T4, FREE (THYROXINE) (98421)Indication: Hypothyroidism On: :52 Request Comments: now and in 6 weeks TSH (51194)Indication: Hypothyroidism On: :52 Request Comments: now and in 6 weeks CBC, Platelets & Auto Diff (65463)Indication: Anemia, chronic disease On: :51 Request Comments: now and in 6 weeks Total Protein,24 Hour Urine (10758)Indication: Chronic kidney disease, stage III (moderate) On: :50 Request CREATININE CLEARANCE (88342)Indication: Chronic kidney disease, stage III (moderate) On: :49 Request FECAL OCCULT- Tubes sent home (68116)Indication: Anemia, chronic disease On: :48 Request IRON (52821)Indication: Anemia, chronic disease On: :48 Request Urine Protein Electrophoresis (UPEP) (80492)Indication: Chronic kidney disease, stage III (moderate) On: 16-Ugn-360722:42 Request T4, FREE (THYROXINE) (30069)Indication: Hypothyroidism On: :52 Request T3, FREE (TRIDOTHYRONINE) (81643)Indication: Hypothyroidism On: :52 Request TSH (THYROID STIMULATING HORMONE) (90469)Indication: Hypothyroidism On: :52 Request FERRITIN (07271)Indication: Anemia, chronic disease On: :51 Request IRON BINDING CAPACITY (TIBC) (60730)Indication: Anemia, chronic disease On: :51 Request IRON & TOTAL IRON BINDING CAPACITY (99278)Indication: Anemia, chronic disease On: 2-Pik-383552:51 Request METABOLIC PANEL, COMPREHENSIVE (72946)Indication: Thrombocytosis On: :50 Request Iron (46979)Indication: Anemia On: :54 Request T3, FREE (TRIDOTHYRONINE) (45125)Indication: Hypothyroidism On: :24 Request TSH (96857)Indication: Hypothyroidism On: :24 Request T4, FREE (THYROXINE) (04123)Indication: Hypothyroidism On: :24 Request ESR-F (SED RATE ERYTHROCYTE - FEMALE) (84397)Indication: Osteomyelitis of pelvic region On: :59 Request Comments: 11/11/15 C-REACT PROT HIGH SENS(hsCRP) (29601)Indication: Osteomyelitis of pelvic region On: :59 Request Comments: 11/11/15 CBC, PLATELETS & AUT DIFF (41364)Indication: Osteomyelitis of pelvic region On: :58 Request Comments: 11/11/15 LIPID PANEL (66548)Indication: Osteoporosis On: :58 Request Comments: 11/11/15 METABOLIC PANEL, COMPREHENSIVE (36534)Indication: Osteomyelitis of pelvic region On: :58 Request Comments: 11/11/15 MICROALBUMIN: CREATININE RATIO (18055) AND (20131)Indication: Osteoporosis On: :58 Request Comments: 11/11/15 VITAMIN B12 AND FOLATES (21413)Indication: Osteoporosis On: :58 Request Comments: 11/11/15 CALCIFEDIOL (69765)Indication: Osteoporosis On: :58 Request Comments: 11/11/15 LIPASE (14310)Indication: Pancreatitis On: :04 Request Comments: 6 week METABOLIC PANEL, COMPREHENSIVE (91128)Indication: Liver function abnormality On: :01 Request Comments: 6 weeks T3, FREE (TRIDOTHYRONINE) (13182)Indication: Hypothyroidism On: :00 Request Comments: 6 weeks T4, FREE (THYROXINE) (95947)Indication: Hypothyroidism On: 08-Ihh-959769:00 Request Comments: 6 weeks TSH (THYROID STIMULATING HORMONE) (82931)Indication: Hypothyroidism On: 42-Hbj-497482:00 Request Comments: 6 weeks CBC, PLATELETS & AUT DIFF (54666)Indication: Thrombocytosis On: 48-Wax-527893:00 Request Comments: 6 weeks PT (Prothrobim Time) (54536)Indication: History of DVT (deep vein thrombosis) On: 28-Jun-2015 Request PT (Prothrobim Time) (59328)Indication: History of DVT (deep vein thrombosis) On: 29-May-2015 Request PT (Prothrobim Time) ([id number])Indication: History of DVT (deep vein thrombosis) On: 29-Apr-2015 Request PT (Prothrobim Time) ([id number])Indication: History of DVT (deep vein thrombosis) On: 30-Mar-2015 Request Metabolic Panel, Basic (54849)Indication: Abnormal blood chemistry On: 46-Tsr-199602:47 Request PT (Prothrobim Time) ([id number])Indication: History of DVT (deep vein thrombosis) On: 28-Feb-2015 Request PT (Prothrobim Time) ([id number])Indication: History of DVT (deep vein thrombosis) On: 29-Jan-2015 Request PT (Prothrobim Time) ([id number])Indication: History of DVT (deep vein thrombosis) On: 30-Dec-2014 Request PT (Prothrobim Time) ([id number])Indication: History of DVT (deep vein thrombosis) On: 30-Nov-2014 Request Urinalysis, Office ([id number])Indication: Abnormal urine On: 34-Ssr-541656:18 Request PT (Prothrobim Time) ([id number])Indication: History of DVT (deep vein thrombosis) On: 01-Oct-2014 Request PT (Prothrobim Time) ([id number])Indication: History of DVT (deep vein thrombosis) On: 74-Oov-364064:46 Request URINALYSIS, W/ MICRO ([id number])Indication: Chronic kidney disease, stage III (moderate) On: 15-Due-290065:50 Request METABOLIC PANEL, COMPREHENSIVE ([id number])Indication: Chronic kidney disease, stage III (moderate) On: 96-Slv-093543:50 Request Metabolic Panel, Basic ([id number])Indication: Chronic kidney disease, stage III (moderate) On: 07-Dkm-078434:12 Request URINALYSIS (62060)Indication: Chronic kidney disease, stage III (moderate) On: 23-Lqa-375231:51 Request Comments: recheck before June follow up MICROALBUMIN: CREATININE RATIO (00376) AND (12723)Indication: Chronic kidney disease, stage III (moderate) On: :51 Request Comments: recheck before June follow up Metabolic Panel, Basic (65972)Indication: Chronic kidney disease, stage III (moderate) On: 11-Suw-234465:50 Request Comments: recheck before June follow up Vitamin B-12 (cyanocobalamin) (74248)Indication: Other vitamin B12 deficiency anemia On: 05-Dkq-924695:41 Request TSH (03777)Indication: Benign essential HTN On: 97-Ksd-405770:41 Request METABOLIC PANEL, COMPREHENSIVE (91897)Indication: Chronic kidney disease, stage III (moderate) On: 22-Kln-341962:41 Request CBC W/AUTO DIFF WBC (01016)Indication: Chronic kidney disease, stage III (moderate) On: 00-Aay-464782:41 Request CALCIFIDIOL (54040) VIT D 25Indication: Osteoporosis On: 49-Hsl-560178:41 Request Vitamin B-12 (cyanocobalamin) (81940)Indication: Other vitamin B12 deficiency anemia On: 42-Dtd-511205:11 Request TSH (92027)Indication: Hypothyroidism On: 99-Toj-928097:10 Request METABOLIC PANEL, COMPREHENSIVE (29900)Indication: Benign essential HTN On: 01-Lzg-265753:10 Request LIPID PANEL (51097)Indication: Benign essential HTN On: 99-Hvg-634957:10 Request PREALBUMIN (11752)Indication: Abnormal loss of weight On: 86-Xhz-386701:39 Request Vitamin B-12 (cyanocobalamin) (75368)Indication: Other vitamin B12 deficiency anemia On: 43-Mvi-993775:36 Request TSH (69948)Indication: Hypothyroidism On: 84-Nlc-064119:35 Request Vitamin B-12 (cyanocobalamin) (65552)Indication: Other vitamin B12 deficiency anemia On: 44-Uvu-34975:43 Request TSH (37297)Indication: Hypothyroidism On: :42 Request T3, FREE (TRIDOTHYRONINE) (90962)Indication: Hypothyroidism On: :42 Request T4, FREE (THYROXINE) (23044)Indication: Hypothyroidism On: :42 Request CBC, Platelets & Auto Diff (70533)Indication: Osteomyelitis of pelvic region On: 64-Xpv-504144:03 Request Comments: copy to Dr. Shira Contreras at [facility] LIPID PANEL (50279)Indication: Benign essential HTN On: :50 Request TSH (65662)Indication: Hypothyroidism On: :50 Request Metabolic Panel, Comprehensive (19710)Indication: Chronic kidney disease, stage III (moderate) On: 35-Nyk-645472:50 Request Vitamin B-12 (cyanocobalamin) (11541)Indication: Other vitamin B12 deficiency anemia On: :49 Request PT (Prothrobim Time) (44167)Indication: History of DVT (deep vein thrombosis) On: 98-Umr-673678:47 Request Comments: standing order PT (Prothrobim Time) ([id number])Indication: History of DVT (deep vein thrombosis) On: 08-Dge-97603:53 Request Comments: standing order CBC (Auto) ([id number])Indication: Regional enteritis of large bowel On: :22 Request Comments: every week x4 then every 2 weeks x4 then monthly TSH (80835)Indication: Hypothyroidism On: :20 Request Metabolic Panel, Comprehensive (04204)Indication: Regional enteritis of large bowel On: :16 Request MTHFR (84769)Indication: History of DVT (deep vein thrombosis) On: :15 Request Protein S Profile (41054)Indication: History of DVT (deep vein thrombosis) On: :15 Request Protein C Profile (43624)Indication: History of DVT (deep vein thrombosis) On: :15 Request Homocysteine, Plasma (34162)Indication: History of DVT (deep vein thrombosis) On: :15 Request Antiphospholipid atb (59096)Indication: History of DVT (deep vein thrombosis) On: :15 Request ANTICOAG ANTTHROMB III &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
--- OUTSIDE RECORDS SUMMARY | 2018-03-25 11:35 | XMS RPT_ITS ---
:1940 Author Organization OHIP Care Team Providers Name Role Phone Viviana Murray MD Attending Unavailable Viviana Murray MD Referring Unavailable Viviana Murray MD Consulting Unavailable Devon Bolton Attending Unavailable BONEMIKY, VIVIANA M. Referring Unavailable BONEZZI, VIVIANA M. Primary Care Unavailable Devon Bolton Attending Unavailable PHAN VIVIANA M. Referring Unavailable BONEZZI, VIVIANA M. Primary Care Unavailable BONEZZI, VIVIANA M. Referring Unavailable BONEZZI, VIVIANA M. Primary Care Unavailable Pablo Sotelo Attending Unavailable ROSS FISHER Attending Unavailable ROSS FISHER Referring Unavailable Phan, Viviana Primary Care Unavailable ROSS FISHER Consulting Unavailable Miriam Elaine Attending Unavailable Miriam Elaine Referring Unavailable Bonezzi, Viviana Primary Care Unavailable Bonezzi, Viviana Attending Unavailable Bonezzi, Viviana Referring Unavailable Bonezzi, Viviana Primary Care Unavailable Bonezzi, Viviana Attending Unavailable Bonezzi, Viviana Referring Unavailable Bonezzi, Viviana Primary Care Unavailable Bonezzi, Viviana Attending Unavailable Bonezzi, Viviana Referring Unavailable Bonezzi, Viviana Primary Care Unavailable PROBLEMS PROBLEMS DATE TYPE CONDITION / CODE ATTENDING STATUS SOURCE 12/06/19 Unknown Z12.31 - Encounter for Viviana Murray Active [place] 18 screening mammogram for Community malignant neoplasm of breast [facility] / Z12.31(ICD-10) Repository 07/31/19 Admitting Crohn's disease, unspecified, [place], Active [facility] 18 Diagnosis without complications / [facility] K50.90(ICD-10) Repository 07/31/19 Admitting Methylenetetrahydrofolate [place], Active [facility] 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 / [facility] E72.12(ICD-10) Repository 07/31/19 Admitting Personal history of other [place], Active [facility] 18 Diagnosis venous thrombosis and [facility] embolism / Z86.718(ICD-10) Repository 07/31/19 Admitting Hypothyroidism, unspecified / [place], Active [facility] 18 Diagnosis E03.9(ICD-10) [facility] Repository 07/31/19 Admitting Body mass index (BMI) 19.9 or [place], Active [facility] 18 Diagnosis less, adult / Z68.1(ICD-10) [facility] Repository 07/31/19 Admitting Unspecified hearing loss, [place], Active [facility] 18 Diagnosis right ear / H91.91(ICD-10) [facility] Repository 07/31/19 Admitting Hypertensive chronic kidney [place], Active [facility] 18 Diagnosis disease w stg 1-4/unsp chr [facility] kdny / I12.9(ICD-10) Repository 07/31/19 Admitting Unspecified osteoarthritis, [place], Active [facility] 18 Diagnosis unspecified site / [facility] M19.90(ICD-10) Repository 07/31/19 Admitting Nicotine dependence, [place], Active [facility] 18 Diagnosis cigarettes, uncomplicated / [facility] F17.210(ICD-10) Repository 07/31/19 Admitting Ileostomy status / [place], Active [facility] 18 Diagnosis Z93.2(ICD-10) [facility] Repository 07/31/19 Admitting residential (current) use of Almos[place], Active [facility] 18 Diagnosis anticoagulants / [facility] Z79.01(ICD-10) Repository 07/31/19 Admitting Acute kidney failure, [place], Active [facility] 18 Diagnosis unspecified / N17.9(ICD-10) [facility] Repository 07/31/19 Admitting Unspecified severe [place], Active [facility] 18 Diagnosis protein-calorie malnutrition [facility] / E43(ICD-10) Repository 07/31/19 Admitting Other female genital tract Al[place], Active [facility] 18 Diagnosis fistulae / N82.8(ICD-10) [facility] Repository 07/31/19 Admitting Hyperosmolality and [place], Active [facility] 18 Diagnosis hypernatremia / E87.0(ICD-10) [facility] Repository 07/31/19 Admitting Female pelvic inflammatory [place], Active [facility] 18 Diagnosis disease, unspecified / [facility] N73.9(ICD-10) Repository 07/31/19 Admitting Acute vaginitis / [place], Active [facility] 18 Diagnosis N76.0(ICD-10) [facility] Repository 07/31/19 Admitting Anemia, unspecified / [place], Active [facility] 18 Diagnosis D64.9(ICD-10) [facility] Repository 07/31/19 Admitting Dehydration / E86.0(ICD-10) [place], Active [facility] 18 Diagnosis [facility] Repository 07/31/19 Admitting Hypomagnesemia / [place], Active [facility] 18 Diagnosis E83.42(ICD-10) [facility] Repository 07/31/19 Admitting Chronic kidney disease, Almos[place], Active [facility] 18 Diagnosis unspecified / N18.9(ICD-10) [facility] Repository 07/31/19 Admitting Other disorders of phosphorus Almos[place], Active [facility] 18 Diagnosis metabolism / E83.39(ICD-10) [facility] Repository 07/31/19 Admitting Hypermagnesemia / [place], Active [facility] 18 Diagnosis E83.41(ICD-10) [facility] Repository 07/04/19 Admitting Chronic kidney disease, stage [place], Active [facility] 18 Diagnosis 4 (severe) / N18.4(ICD-10) [facility] Repository 07/04/19 Admitting Other chronic pain / [place], Active [facility] 18 Diagnosis G89.29(ICD-10) [facility] Repository 07/04/19 Admitting Other specified diseases of [place], Active [facility] 18 Diagnosis anus and rectum / [facility] K62.89(ICD-10) Repository 07/04/19 Admitting Crohn's disease of large [place], Active [facility] 18 Diagnosis intestine with fistula / [facility] K50.113(ICD-10) Repository 06/25/19 Admitting Encounter for other [place]lezak, Active [facility] 18 Diagnosis preprocedural examination / [facility] Z01.818(ICD-10) Repository 06/25/19 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[place], Active [facility] 18 Diagnosis K60.5(ICD-10) [facility] Repository 06/25/19 Admitting Essential (primary) [place]lezak, Active [facility] 18 Diagnosis hypertension / I10(ICD-10) [facility] Repository 06/25/19 Admitting Underweight / R63.6(ICD-10) [place], Active [facility] 18 Diagnosis [facility] Repository 06/25/19 Admitting Nicotine dependence, [place], Active [facility] 18 Diagnosis unspecified, uncomplicated / [facility] F17.200(ICD-10) Repository PROCEDURES PROCEDURES No Procedure Records FoundRESULTS RESULTS ABDOMEN/PELVIS WITHOUT Observed: 02/10/2018 Status: F Source: [place] CONT 2:14 PM [facility] REPOSITORY [facility] Imaging Services [address] [place] [address] Abdomen/Pelvis without Cont MR#: [id number] Acct: [id number] Name: SHARMAINE FARLEY Rep #: [id number] : 1940 F 77 From: Marixa Walsh MD PCP: Viviana Murray MD Status: REG CLI Study: Abdomen/Pelvis without Cont Date of Exam: 02/10/18 Exam# [id number] Ordering Dr: DAPHNE BOLTON STUDY: CT ABDOMEN AND PELVIS WITHOUT CONTRAST REASON FOR EXAM: Female, 77 years old. History Crohn's disease, abnormal vaginal drainage since surgery and may history of colostomy appendectomy cholecystectomy colon rectal surgery and hypertension. RADIATION DOSAGE [...] gallbladder fossa consistent with a prior cholecystectomy. Normal spleen. There is diffuse atrophy of the pancreas. Normal bilateral adrenal glands. There is an area of posterior right renal parenchymal thinning within the right kidney likely compatible with underlying chronic renal disease and/or prior infection. There [...] mild wall thickening. There is an anastomosis within the pelvis. There is a contrasted appearance of the cecum. This leads to a well contrasted colostomy. Minimally distended small bowel loops partially contrasted are seen in the pelvis. There is a mildly thick-walled appearance of the inferior aspect of the proximal aspect of the cecum at the ileocecal junction which may represent interface between contrasted and noncontrasted bowel. There is non-visualization of the appendix. There is diffuse atherosclerotic calcification of the abdominal aorta,. The proximal aorta measures 2.6 x 2.7 cm. Normal inferior vena cava. There are multiple subcentimeter retroperitoneal lymph nodes. There are few small [...] uterus and the rectum. There is a right lower colostomy. The soft tissues of the gluteal region are within without significant inflammatory change. There is anterolisthesis of L4-L5. There is a broad disc bulge with moderate neural foraminal narrowing moderate central stenosis. There is a broad disc bulge L5-S1 with minimal neural foramina narrowing is significant central stenosis. There is focal irregularity of the right side sacrum with a somewhat sclerotic border which is similar to the prior study. CT/Abdomen/Pelvis without Cont IMPRESSION: The time of this study the oral contrast is limited and reaches only the cecum which exits quickly from the colostomy. There is no evidence of fluid in the visualized uterine fundus. There is a small amount of gas which is present within the vagina at the level of the cervix which is nonspecific. Potentially a pelvic ultrasound would be helpful for further evaluation if appropriate. There is persistent presacral stranding which is concerning for either inflammatory change and/or neoplasm. Recommend correlation with radiation history. There is a persistent irregular appearance of the anterior cortex at the level of S1-S2 which potentially represent a focus of stable or chronic cortical irregularity. Potentially chronic osteomyelitis could have this appearance. Recommend consideration for follow- up MRI of the pelvis. This may be [...] be excluded. Electronically Signed: Marixa Walsh MD at 16:35 EST Tel , Service support , CC: Viviana Murray MD; DAPHNE BOLTON Sales Consultant: Signed DISCHARGE INSTRUCTION Observed: 12/26/2017 Status: F Source: [place] 1:05 PM [facility] REPOSITORY [facility] Medical Records Department [address] [place] [address] Instructions for Home/Discharge Instructions 12/26/17 1301 MR#: [id number] Acct: [id number] Name: SHARMAINE FARLEY Rep #: [id number] : 1940 77 From: Miriam Elaine MD PCP: Viviana Murray MD Status: REG IDC Discharge Diet: No Restrictions, - - increase [...] per hour Cleanse incision/area with: Soap AND Water Additional Instructions: Use Tylenol for pain or cramping. Allergies/Adverse Reactions: Allergies No Known Allergies Allergy (Verified 09/23/15 12:03) Medications to take at Discharge RX: Apixaban [Eliquis] 2.5 mg PO BID 09/23/15 RX: Atenolol [Tenormin] 50 mg PO DAILY 09/23/15 RX: Cyanocobalamin [Vitamin B12] 500 mcg IM QMONTH 09/23/15 RX: Levothyroxine [Synthroid] 125 mcg PO DAILY@0600 #30 tablet 09/28/15 Cholecalciferol (Vitamin D3) [Vitamin [...] With: Dr. Bolton When: 1 week 12/26/17 1305 <Electronically signed by Miriam Elaine MD> Date Miriam Elaine MD CC: Viviana Murray MD OPERATIVE REPORT Observed: 12/26/2017 Status: F Source: [place] 1:01 PM [facility] REPOSITORY [facility] Medical Records Department [address] [place] [address] Operative Report 12/26/17 1259 MR#: [id number] Acct: [id number] Name: SHARMAINE FARLEY Rep #: [id number] : 1940 77 From: Miriam Elaine MD PCP: Viviana Murray MD Status: [facility] Y Location: [place] [address] Problem List (1) Endometrial thickening on ultrasound Status: Acute Report of Operation Date of Procedure: 12/26/17 Pre-Operative Diagnosis: Postmenopausal bleeding and thickened endometrium Post-Operative Diagnosis: Same Surgery/Procedure Performed:: D and C, hysteroscopy Description of Surgical Findings:: Thin external genitalia noted. Uterus was retroflexed and sounded to approximately centimeter at 7 cm. Cervical eyes easily dilated to accommodate a 5 mm hysteroscope. Bilateral adnexa fully mobile and no masses. Type [...] adequate she is placed in the dorsal lithotomy position via the Mak stirrups. She was [...] infusion. The patient tolerated well. The cervical eyes was easily dilated to accommodate a 5 mm hysteroscope. The hysteroscope was placed into the endometrial cavity with notation of flimsy tissue throughout. Removal of the hysteroscope was replaced by sharp curettage of the entire endometrial cavity and collection of that tissue to send for pathological evaluation. The hysteroscope was replaced into the endometrial cavity after curettings and removal of all prior tissue was noted. All instruments [...] patient's general surgeon a rectal surgeon who had asked for a update up following the surgery. Grafts/Implants Used: None - Complications None - Admit VTE Documentation VTE Present on Admission: No - Discontinued 1 week ago VTE Mechan Device Prophylaxis: SCD's VTE Pharm Prophylaxis ordered?: Yes 12/26/17 1301 <Electronically signed by Miriam Elaine MD> Date Miriam Elaine MD CC: Miriam Elaine MD; Viviana Murray MD Signed OPERATIVE REPORT Observed: 12/26/2017 Status: F Source: [place] 12:59 PM [facility] REPOSITORY [facility] Medical Records Department [address] [place] [address] Operative Report 12/26/17 1256 MR#: [id number] Acct: [id number] Name: SHARMAINE FARLEY Rep #: [id number] : 1940 77 From: Miriam Elaine MD PCP: Viviana Murray MD Status: REG SD Y Location: [place] [address] Problem List (1) Endometrial thickening on ultrasound Status: Acute Report of Operation Date of Procedure: 12/26/17 Pre-Operative Diagnosis: Postmenopausal bleeding and thickened endometrium Post-Operative Diagnosis: Same Surgery/Procedure Performed:: D and C, hysteroscopy Description of Surgical Findings:: Thin external genitalia noted. Uterus was retroflexed and sounded to approximately centimeter at 7 cm. Cervical eyes easily dilated to accommodate a 5 mm hysteroscope. Bilateral adnexa fully mobile and no masses. Type [...] Prophylaxis: SCD's VTE Pharm Prophylaxis ordered?: Yes 12/26/171258 <Electronically signed by Miriam Elaine MD> Date Miriam Elaine MD CC: Miriam Elaine MD; Viviana Murray MD Signed PROTHROMBIN TIME W/INR Collected: 12/26/2017 Status: F Source: [place] 11:55 AM [facility] REPOSITORY TYPE CODE TESTS RESULT OUT OF RANGE REFERENCE UNITS LAB L300.4150 11.7-14.9 SECONDS Normal PROTIME 13.8 LAB L300.4200 Normal INR 1.1 Performed By: #### L300.3900, L300.4310 #### [facility] [address] [place], [address] PARTIAL THROMBOPLAST Collected: 12/26/2017 Status: F Source: [place] TIME 11:55 AM [facility] REPOSITORY TYPE CODE TESTS RESULT OUT OF RANGE REFERENCE UNITS LAB L300.4310 24.1-36.2 Seconds Normal PTT 28.6 Performed By: #### L300.3900, L300.4310 #### [facility] [address] [place], [address] CBC-COMPLETE BLOOD CNT Collected: 12/26/2017 Status: F Source: [place] NO DIFF 11:55 AM [facility] REPOSITORY TYPE CODE TESTS RESULT OUT OF RANGE REFERENCE UNITS LAB L100.1000 4.4-11.0 K/mm3 Normal WBC 7.3 LAB L100.1200 4.2-5.4 M/mm3 Normal RBC 4.49 LAB L100.1300 12.0-15.0 g/dl Normal HGB 12.7 LAB L100.1400 37-47 % Normal HCT 38.8 LAB L100.1500 81-99 fL Normal MCV 86.4 LAB L100.1600 27.0-32.0 pg Normal MCH 28.3 LAB L100.1700 32-36 g/gl Normal MCHC 32.7 LAB L100.1810 11.6-14.6 % High RDW CV 17.5 LAB L100.1820 35.1-43.9 fl High RDW SD 55.4 LAB L100.1900 150-450 K/mm3 Normal PLT 320 LAB L100.2000 6.2-12.0 fl Normal MPV 10.0 Performed By: #### L100.0500 #### [facility] [address] [place], [place], [address] ENDOMETRIAL BX/CURETTINGS Observed: 12/26/2017 Status: F Source: [place] 12:00 AM [facility] REPOSITORY Patient: SHARMAINE FARLEY : 1940 (77/F) Acct Num: [id number] Phys: Miriam Elaine MD Unit Num: [id number] Loc: [facility] Specimen: [id number] Received: 12/26/17 - 1506 Spec Type: ENDOM BX/C TISSUES 1 TISSUES: Endometrium, NOS COMMENT The specimen predominantly consists of mucoid tissue. Correlation with clinical findings and appropriate follow up are necessary. GROSS DESCRIPTION Received in fixative is one container labeled with the patient's name and designated endometrial curettings. The specimen consists of multiple irregular fragments of arroyo-pink mucoid tissue that in aggregate measure 2.5 x 2.5 x 0.2 cm. The entire specimen is submitted in one cassette. / KELLIE:paulina 12/26 TC:4 CPT: 19053 HEADER OPERATION: Hysteroscopy, dilation and curettage PRE-OP DIAGNOSIS: Thickened endometrium, postmenopausal bleeding TISSUE SUBMITTED: Endometrial curettings MICROSCOPIC DESCRIPTION Slides are reviewed. MICROSCOPIC DIAGNOSIS Endometrial curettings: Rare minute strips of benign endometrial epithelium. Scant fragments of benign ecto- and endocervical epithelium and mucous. See comment. SJ:paulina 12/27/17 Signed Eliceo Lara 12/27/17 <signature on file> Performed By: #### PEMB #### [facility] [address] [facility] [place], [address] HISTORY AND PHYSICAL Observed: 12/25/2017 Status: F Source: [place] EXAM 10:30 AM [facility] REPOSITORY [facility] Medical Records Department [address] [place] [address] History and Physical 12/25/17 1022 MR#: [id number] Acct: [id number] Name: SHARMAINE FARLEY Rep #: [id number] : 1940 77 From: Miriam Elaine MD PCP: Viviana Murray MD Status: PRE [facility] Y Location: [facility] - Problem List (1) Endometrial thickening on ultrasound Status: Acute History Date of Admission: 12/26/17 History of this : This is a 77 year-old, G [], P [], at weeks gestational age. Allergies No Known Allergies Allergy (Verified 09/23/15 12:03) Home Medications: Home Medications Apixaban [Eliquis] 2.5 mg PO BID 09/23/15 Atenolol [Tenormin] 50 mg PO DAILY 09/23/15 Cyanocobalamin [Vitamin B12] 500 mcg IM QMONTH 09/23/15 Levothyroxine [Synthroid] 125 mcg PO DAILY@0600 #30 tablet 09/28/15 Cholecalciferol (Vitamin D3) [Vitamin D] 50 mcg PO DAILY 12/19/17 Multivitamin-Min/Iron/FA/Vit K [Multi For Her Softgel] 1 each PO DAILY 12/19/17 Smoking Status: Current every day smoker Alcohol: None History Past Pregnancies: Past Pregnancies Delivery Name GA/Weeks Outcome Route WeiInfant GeLabor LenAnesthesiDelivery Provider FOB Date ght nder [facility] a Location Review of Systems Constitutional: Denies: Chills, Fever, Weight Change HEENT: Denies: Difficulty Hearing, Difficulty Swallowing, Nasal bleeding, Nasal Congestion, Sore Throat Cardiovascular: Denies: Chest Pain, Palpitations Respiratory: Denies: Shortness of Breath, Wheezing Gastrointestinal: Denies: Constipation, Diarrhea, Nausea, Vomiting Genitourinary: Denies: Dysuria, Frequency, Hematuria, Incontinence, Urgency Gynecological: Reports: Vaginal discharge, Vaginal itching. Denies: Breast symptoms, Excessively long or heavy periods, Sexual concerns, Vaginal bleeding Musculoskeletal: Denies: Joint Pain, Muscle pain Skin: Denies: Lesions, Skin Changes Neurological: Denies: Focal weakness, Numbness Psychiatric: Denies: Anxiety, Depression Endocrine: Denies: Heat/ Cold Intolerance Hematologic/ Lymphatic: Denies: Easy Bleeding Physical Exam General: Alert, Oriented x3, No apparent distress HEENT: Atraumatic, Normocephalic. Negative for: Thyromegaly, Lymphadenopathy Lungs: Normal air movement Abdomen: Bowel Sounds Present Extremities:: No edema - atrophic and thin, skinned , No tenderness/swelling Neurological: Neuro grossly intact FACILITIES OFFICER: Normal external genitalia. Negative for: Vulvar lesions Assessment/Plan All Active Problems Endometrial thickening on ultrasound (Acute) Weight loss (Acute) Nausea AND vomiting (Acute) AKILA (acute kidney injury) (Acute) Dehydration (Acute) History of osteomyelitis (Resolved) Osteomyelitis (Resolved) This is a 77 year-old, post-menopausal. 1. Thickened endometrium of uterus D and C is planned. The preop preparation, the intraop procedures and the postop recovery reviewed. The risks of bleeding, infection and other organ damage including bladder, bowel and uterine perforation reviewed, accepted and consented. 2. DVT medical clearance and timeline of discontinuation of Eliquis 3. Tobacco use high risk and anti-coagulant following 2 DVT in history 12/25/17 1030 <Electronically signed by Miriam Elaine MD> Date Miriam Elaine MD Cosign Signature: Date (if applicable) CC: Miriam Elaine MD; Viviana Murray MD Signed VERT FX ASSESS/LAT Observed: 10/31/2017 Status: F Source: [place] BONE [place] 1:50 PM [facility] REPOSITORY [facility] Imaging Services [address] [place] [address] Vert Fx Assess/Lat Bone Den MR#: [id number] Acct: [id number] Name: SHARMAINE FARLEY Rep #: [id number] : 1940 F 77 From: Jose Chan MD PCP: Viviana Murray MD Status: REG CLI Study: Vert Fx Assess/Lat Bone Den Date of Exam: 10/31/17 Exam# [id number] Ordering Dr: Viviana Murray MD STUDY: DUAL ENERGY X-RAY ABSORPTIOMETRY / DXA REASON FOR EXAM: Female, 77 years old. Early menopause. Loss of height. TECHNIQUE: Bone Mineral Density (BMD) measurements of lumbar spine and thoracic spine were obtained. COMPARISON: Comparison is made with prior examination dated November 04, 2015. FINDINGS: There is minimal loss of height of the superior endplate of the T8 and T10 vertebrae. BD/Vert Fx Assess/Lat Bone Den IMPRESSION: Minimal loss of height of the superior endplate of the T8 and T10 vertebrae. Reference Information: The T-score is the number [...] Jose Chan MD at 12:22 EDT Tel [phone], Service support , CC: Viviana Murray MD Sales Consultant: Signed DEXA BONE DENSITY Observed: 10/29/2017 Status: F Source: [place] STUDY 10:00 AM [facility] REPOSITORY [facility] Imaging Services [address] [place] [address] Dexa Bone Density Study MR#: [id number] Acct: [id number] Name: SHARMAINE FARLEY Rep #: [id number] : 1940 F 77 From: Jose Chan MD PCP: Viviana Murray MD Status: REG CLI Study: Dexa Bone Density Study Date of Exam: 10/29/17 Exam# [id number] Ordering Dr: Viviana Murray MD STUDY: DUAL ENERGY X-RAY ABSORPTIOMETRY / DXA REASON FOR EXAM: Female, 77 years old. Early menopause. Loss of height. TECHNIQUE: Bone Mineral Density (BMD) measurements of lumbar spine and bilateral hips were obtained. COMPARISON: None. FINDINGS: Lumbar Spine (L1-L4): g/cm2 (0.643) / T-score (-4.3) / Z-score (-2.5) Findings are suggestive of osteoporosis with a high fracture risk. Left Femur Total: g/cm2 (0.602) / T-score (-3.2) / Z- score (-1.3) Left Femoral Neck: g/cm2 (0.647) / T-score (-2.8) / Z- score (-0.7) Right Femur Total: g/cm2 (0.525) / T-score (-3.8) / Z- score (-1.9) Right Femoral Neck: g/cm2 (0.579) / T-score (-3.3) / Z-score (-1.2) BD/Dexa Bone Density Study IMPRESSION: The patient is considered osteoporotic as [...] [email or web address] Electronically Signed: Jose Chan MD at 10:44 EDT Tel [phone], Service support , CC: Viviana Murray MD Sales Consultant: Signed SCREENING MAMM (CAD), Observed: 10/29/2017 Status: F Source: [place] 10:00 AM [facility] REPOSITORY [facility] Imaging Services [address] [place] [address] SCREENING MAMM (CAD), BILAT MR#: [id number] Acct: [id number] Name: SHARMAINE FARLEY Rep #: [id number] : 1940 F 77 From: Jose Chan MD PCP: Viviana Murray MD Status: REG CLI Study: SCREENING MAMM (CAD), BILAT Date of Exam: 10/29/17 Exam# [id number] Ordering Dr: Viviana Murray MD MAMMOGRAPHY - BILATERAL SCREENING REASON FOR EXAM: Female, 77 years old. Routine annual screening examination. PERTINENT HISTORY: Non-contributory. TECHNIQUE: Digital bilateral breast codi (3D mammographic acquisition) in the CC and MLO projections. 2-D mediolateral oblique (MLO) and craniocaudad (CC) views of both breasts were obtained. CAD: Full Field Digital Mammography with Computer Added Detection was performed. COMPARISON: Comparison is made with prior outside examination dated January 07, 2014. FINDINGS: Breast Composition: The breasts are heterogeneously dense, which may obscure small masses. There [...] facility within 30 days. Approximately 10% of breast cancers are not detected by mammography. A normal mammogram should not delay biopsy of a clinically suspicious abnormality. [id number] Electronically Signed: Jose Chan MD at 8:00 EDT Tel [phone], Service support , CC: Viviana Murray MD Sales Consultant: Signed TRANSVAGINAL Observed: 10/22/2017 Status: F Source: [place] NON- 3:09 PM [facility] REPOSITORY [facility] Imaging Services [address] [place] [id number] Transvaginal Non- MR#: [id number] Acct: [id number] Name: SHARMAINE FARLEY Rep #: [id number] : 1940 F 77 From: Tim Mark MD PCP: Viviana Murray MD Status: REG CLI Study: Transvaginal Non- Date of Exam: 10/22/17 Exam# [id number] Ordering Dr: Viviana Murray MD STUDY: ULTRASOUND [...] is normal arterial and normal venous vascularity. There is no fluid in the cul-de-sac. US/Transvaginal Non- IMPRESSION: 1. Endometrial complex thickening with fluid distention considered abnormal postmenopausal female. Endometrial hyperplasia and neoplasm should be considered. Electronically Signed: Tim Mark MD at 10:40 EDT , Service support , CC: Viviana Murray MD Sales Consultant: Signed PELVIC (NON ) Observed: 10/22/2017 Status: F Source: [place] 2:25 PM [facility] REPOSITORY [facility] Imaging Services [address] [place] [id number] Pelvic (Non ) MR#: [id number] Acct: [id number] Name: SHARMAINE FARLEY Rep #: [id number] : 1940 F 77 From: Tim Mark MD PCP: Viviana Murray MD Status: REG CLI Study: Pelvic (Non ) Date of Exam: 10/22/17 Exam# [id number] Ordering Dr: Viviana Murray MD STUDY: ULTRASOUND [...] is normal arterial and normal venous vascularity. There is no fluid in the cul-de-sac. US/Pelvic (Non ) IMPRESSION: 1. Endometrial complex thickening with fluid distention considered abnormal postmenopausal female. Endometrial hyperplasia and neoplasm should be considered. Electronically Signed: Tim Mark MD at 10:40 EDT , Service support , CC: Viviana Murray MD Sales Consultant: Signed GLUCOSE,BEDSIDE Collected: 08/06/2017 Status: F Source: [facility] 6:11 AM SYSTEM REPOSITORY TYPE CODE TESTS RESULT OUT OF RANGE REFERENCE UNITS LAB BGLU 70-100 mg/dL High 118 Glucose,Beds vladimir Result Comment: Test performed by glucose meter. Results may be 10%-15% lower than serum/plasma values. (CLIA ID [id number]) Performed By: #### BGLU #### [facility] [address] [place] [phone] BASIC METABOLIC PANEL Collected: 08/06/2017 Status: F Source: [facility] 6:07 AM SYSTEM REPOSITORY TYPE CODE TESTS RESULT OUT OF RANGE REFERENCE UNITS LAB NA3 137-145 mmol/L Sodium Normal 140 LAB K3 3.5-5.1 mmol/L Normal Potassium 4.5 LAB CL3 98-107 mmol/L Chloride Normal 101 LAB CO23 22-30 mmol/L High Carbon Dioxide 32 LAB ANIN3 NA Anion Gap 7 LAB GLUC3 70-100 mg/dL Glucose Normal 100 LAB BUN3 7-20 mg/dL High Urea Nitrogen 57 LAB CRET3 0.52-1.25 mg/dL Normal Creatinine 1.17 LAB GF3BR >60 mL/min eGFR 54.1 LAB GF3WR >60 mL/min eGFR OTHER 44.6 Result Comment: Source- MDRD equation with creatinine calibration to IDMS(NKDEP) eGFR not recommended for drug dose adjustment LAB CA3 8.4-10.2 mg/dL Low Calcium 8.2 Performed By: #### BMP3, MG3, PHOS3 #### [facility] [address] [place] [phone] MAGNESIUM Collected: 08/06/2017 Status: F Source: [facility] 6:07 AM SYSTEM REPOSITORY TYPE CODE TESTS RESULT OUT OF RANGE REFERENCE UNITS LAB MG3 1.6-2.3 mg/dL Normal Magnesium 1.7 Performed By: #### BMP3, MG3, PHOS3 #### [facility] [address] [place] [phone] PHOSPHORUS Collected: 08/06/2017 Status: F Source: [facility] 6:07 AM SYSTEM REPOSITORY TYPE CODE TESTS RESULT OUT OF REFERENCE UNITS RANGE LAB PHOS3 2.5-4.5 mg/dL High Phosphorus 5.2 Performed By: #### BMP3, MG3, PHOS3 #### [facility] [address] [place] [phone] GLUCOSE,BEDSIDE Collected: 08/05/2017 Status: F Source: [facility] 11:59 PM SYSTEM REPOSITORY TYPE CODE TESTS RESULT OUT OF RANGE REFERENCE UNITS LAB BGLU 70-100 mg/dL High 172 Glucose,Beds vladimir Result Comment: Test performed by glucose meter. Results may be 10%-15% lower than serum/plasma values. (CLIA ID [id number]) Performed By: #### BGLU #### [facility] [address] [place] [phone] GLUCOSE,BEDSIDE Collected: 08/05/2017 Status: F Source: [facility] 6:23 PM SYSTEM REPOSITORY TYPE CODE TESTS RESULT OUT OF RANGE REFERENCE UNITS LAB BGLU 70-100 mg/dL High 169 Glucose,Beds vladimir Result Comment: Test performed by glucose meter. Results may be 10%-15% lower than serum/plasma values. (CLIA ID [id number]) Performed By: #### BGLU #### [facility] [address] [place] [phone] GLUCOSE,BEDSIDE Collected: 08/05/2017 Status: F Source: [facility] 12:23 PM SYSTEM REPOSITORY TYPE CODE TESTS RESULT OUT OF RANGE REFERENCE UNITS LAB BGLU 70-100 mg/dL High 228 Glucose,Beds vladimir Result Comment: Test performed by glucose meter. Results may be 10%-15% lower than serum/plasma values. (CLIA ID [id number]) Performed By: #### BGLU #### [facility] [address] [place] [phone] GLUCOSE,BEDSIDE Collected: 08/05/2017 Status: F Source: [facility] 6:22 AM SYSTEM REPOSITORY TYPE CODE TESTS RESULT OUT OF RANGE REFERENCE UNITS LAB BGLU 70-100 mg/dL High 166 Glucose,Beds vladimir Result Comment: Test performed by glucose meter. Results may be 10%-15% lower than serum/plasma values. (CLIA ID [id number]) Performed By: #### BGLU #### [facility] [address] [place] [phone] HEMOGRAM Collected: 08/05/2017 Status: F Source: [facility] 4:20 AM SYSTEM REPOSITORY TYPE CODE TESTS RESULT OUT OF RANGE REFERENCE UNITS LAB IWBC 3.6-10.7 10*3/uL WBC Normal 8.7 LAB RBC 3.80-5.20 10*6/uL Low RBC 2.54 LAB HGB 11.7-16.0 g/dL Low Hemoglobin 7.3 LAB HCT 35.0-47.0 % Low Hematocrit 22.0 LAB MCV 79.0-98.0 fL MCV Normal 86.5 LAB MCH 26.0-34.0 pg MCH Normal 28.7 LAB MCHC 32.0-36.0 % MCHC Normal 33.2 LAB RDW 11.5-14.5 % High RDW 20.1 LAB PLT 140-440 10*3/uL Platelet Normal 164 LAB MPV 7.4-10.4 fL MPV Normal 9.2 Performed By: #### HEMOG, BMP3, MG3, PHOS3 #### [facility] [address] [place] [address] BASIC METABOLIC PANEL Collected: 08/05/2017 Status: F Source: [facility] 4:20 AM SYSTEM REPOSITORY TYPE CODE TESTS RESULT OUT OF RANGE REFERENCE UNITS LAB NA3 137-145 mmol/L High Sodium 146 LAB K3 3.5-5.1 mmol/L Normal Potassium 3.8 LAB CL3 98-107 mmol/L Chloride Normal 107 LAB CO23 22-30 mmol/L High Carbon Dioxide 32 LAB ANIN3 NA Anion Gap 8 LAB GLUC3 70-100 mg/dL High Glucose 110 LAB BUN3 7-20 mg/dL High Urea Nitrogen 57 LAB CRET3 0.52-1.25 mg/dL High Creatinine 1.44 LAB GF3BR >60 mL/min eGFR 42.6 LAB GF3WR >60 mL/min eGFR OTHER 35.1 Result Comment: Source- MDRD equation with creatinine calibration to IDMS(NKDEP) eGFR not recommended for drug dose adjustment LAB CA3 8.4-10.2 mg/dL Low Calcium 7.5 Performed By: #### HEMOG, BMP3, MG3, PHOS3 #### [facility] [address] [place] [address] MAGNESIUM Collected: 08/05/2017 Status: F Source: [facility] 4:20 AM SYSTEM REPOSITORY TYPE CODE TESTS RESULT OUT OF RANGE REFERENCE UNITS LAB MG3 1.6-2.3 mg/dL Normal Magnesium 1.7 Performed By: #### HEMOG, BMP3, MG3, PHOS3 #### [facility] [address] [place] [address] PHOSPHORUS Collected: 08/05/2017 Status: F Source: [facility] 4:20 AM SYSTEM REPOSITORY TYPE CODE TESTS RESULT OUT OF REFERENCE UNITS RANGE LAB PHOS3 2.5-4.5 mg/dL High Phosphorus 4.7 Performed By: #### HEMOG, BMP3, MG3, PHOS3 #### [facility] [address] [place] [address] GLUCOSE,BEDSIDE Collected: 08/04/2017 Status: F Source: [facility] 11:56 PM SYSTEM REPOSITORY TYPE CODE TESTS RESULT OUT OF RANGE REFERENCE UNITS LAB BGLU 70-100 mg/dL High 175 Glucose,Beds vladimir Result Comment: Test performed by glucose meter. Results may be 10%-15% lower than serum/plasma values. (CLIA ID [id number]) Performed By: #### BGLU #### [facility] [address] [place] [address] GLUCOSE,BEDSIDE Collected: 08/04/2017 Status: F Source: [facility] 5:39 PM SYSTEM REPOSITORY TYPE CODE TESTS RESULT OUT OF RANGE REFERENCE UNITS LAB BGLU 70-100 mg/dL Normal 92 Glucose,Beds vladimir Result Comment: Test performed by glucose meter. Results may be 10%-15% lower than serum/plasma values. (CLIA ID [id number]) Performed By: #### BGLU #### [facility] [place] [address] GLUCOSE,BEDSIDE Collected: 08/04/2017 Status: F Source: [facility] 12:14 PM SYSTEM REPOSITORY TYPE CODE TESTS RESULT OUT OF RANGE REFERENCE UNITS LAB BGLU 70-100 mg/dL High 125 Glucose,Beds vladimir Result Comment: Test performed by glucose meter. Results may be 10%-15% lower than serum/plasma values. (CLIA ID [id number]) Performed By: #### BGLU #### [facility] [address] [place] [phone] GLUCOSE,BEDSIDE Collected: 08/04/2017 Status: F Source: [facility] 6:31 AM SYSTEM REPOSITORY TYPE CODE TESTS RESULT OUT OF RANGE REFERENCE UNITS LAB BGLU 70-100 mg/dL High 111 Glucose,Beds vladimir Result Comment: Test performed by glucose meter. Results may be 10%-15% lower than serum/plasma values. (CLIA ID [id number]) Performed By: #### BGLU #### [facility] [place] [address] HEMOGRAM Collected: 08/04/2017 Status: F Source: [facility] 6:05 AM SYSTEM REPOSITORY TYPE CODE TESTS RESULT OUT OF RANGE REFERENCE UNITS LAB IWBC 3.6-10.7 10*3/uL WBC Normal 8.4 LAB RBC 3.80-5.20 10*6/uL Low RBC 2.55 LAB HGB 11.7-16.0 g/dL Low Hemoglobin 7.3 LAB HCT 35.0-47.0 % Low Hematocrit 22.2 LAB MCV 79.0-98.0 fL MCV Normal 87.3 LAB MCH 26.0-34.0 pg MCH Normal 28.6 LAB MCHC 32.0-36.0 % MCHC Normal 32.8 LAB RDW 11.5-14.5 % High RDW 19.6 LAB PLT 140-440 10*3/uL Platelet Normal 154 LAB MPV 7.4-10.4 fL MPV Normal 9.1 Performed By: #### HEMOG, BMP3, MG3, PHOS3 #### [facility] [address] [place] [phone] BASIC METABOLIC PANEL Collected: 08/04/2017 Status: F Source: [facility] 6:05 AM SYSTEM REPOSITORY TYPE CODE TESTS RESULT OUT OF RANGE REFERENCE UNITS LAB NA3 137-145 mmol/L Sodium Normal 142 LAB K3 3.5-5.1 mmol/L Low Potassium 3.2 LAB CL3 98-107 mmol/L High Chloride 109 LAB CO23 22-30 mmol/L Carbon Normal Dioxide 27 LAB ANIN3 NA Anion Gap 7 LAB GLUC3 70-100 mg/dL Glucose Normal 98 LAB BUN3 7-20 mg/dL High Urea Nitrogen 59 LAB CRET3 0.52-1.25 mg/dL High Creatinine 1.46 LAB GF3BR >60 mL/min eGFR 41.9 LAB GF3WR >60 mL/min eGFR OTHER 34.6 Result Comment: Source- MDRD equation with creatinine calibration to IDMS(NKDEP) eGFR not recommended for drug dose adjustment LAB CA3 8.4-10.2 mg/dL Low Calcium 7.5 Performed By: #### HEMOG, BMP3, MG3, PHOS3 #### [facility] [address] [place] [phone] MAGNESIUM Collected: 08/04/2017 Status: F Source: [facility] 6:05 AM SYSTEM REPOSITORY TYPE CODE TESTS RESULT OUT OF RANGE REFERENCE UNITS LAB MG3 1.6-2.3 mg/dL Normal Magnesium 1.8 Performed By: #### HEMOG, BMP3, MG3, PHOS3 #### [facility] [address] [place] [phone] PHOSPHORUS Collected: 08/04/2017 Status: F Source: [facility] 6:05 AM SYSTEM REPOSITORY TYPE CODE TESTS RESULT OUT OF RANGE REFERENCE UNITS LAB PHOS3 2.5-4.5 mg/dL Normal Phosphorus 4.5 Performed By: #### HEMOG, BMP3, MG3, PHOS3 #### [facility] [address] [place] GLUCOSE,BEDSIDE Collected: 08/03/2017 Status: F Source: [facility] 9:14 PM SYSTEM REPOSITORY TYPE CODE TESTS RESULT OUT OF RANGE REFERENCE UNITS LAB BGLU 70-100 mg/dL High 228 Glucose,Beds vladimir Result Comment: Test performed by glucose meter. Results may be 10%-15% lower than serum/plasma values. (CLIA ID [id number]) Performed By: #### BGLU #### [facility] [address] [place] [address] BASIC METABOLIC PANEL Collected: 08/03/2017 Status: F Source: [facility] 6:59 AM SYSTEM REPOSITORY TYPE CODE TESTS RESULT OUT OF RANGE REFERENCE UNITS LAB NA3 137-145 mmol/L Sodium Normal 141 LAB K3 3.5-5.1 mmol/L Low Potassium 3.3 LAB CL3 98-107 mmol/L High Chloride 113 LAB CO23 22-30 mmol/L Low Carbon Dioxide 20 LAB ANIN3 NA Anion Gap 8 LAB GLUC3 70-100 mg/dL Low Glucose 69 LAB BUN3 7-20 mg/dL High Urea Nitrogen 66 LAB CRET3 0.52-1.25 mg/dL High Creatinine 1.57 LAB GF3BR >60 mL/min eGFR 38.5 LAB GF3WR >60 mL/min eGFR OTHER 31.8 Result Comment: Source- MDRD equation with creatinine calibration to IDMS(NKDEP) eGFR not recommended for drug dose adjustment LAB CA3 8.4-10.2 mg/dL Low Calcium 7.9 Performed By: #### HEMDF, BMP3, MG3, PHOS3 #### [facility] [address] [place] [address] MAGNESIUM Collected: 08/03/2017 Status: F Source: [facility] 6:59 AM SYSTEM REPOSITORY TYPE CODE TESTS RESULT OUT OF RANGE REFERENCE UNITS LAB MG3 1.6-2.3 mg/dL Normal Magnesium 2.2 Performed By: #### HEMDF, BMP3, MG3, PHOS3 #### [facility] [address] [place] [phone] PHOSPHORUS Collected: 08/03/2017 Status: F Source: [facility] 6:59 AM SYSTEM REPOSITORY TYPE CODE TESTS RESULT OUT OF REFERENCE UNITS RANGE LAB PHOS3 2.5-4.5 mg/dL Low Phosphorus 2.3 Performed By: #### HEMDF, BMP3, MG3, PHOS3 #### [facility] [address] [place] [phone] HEMOGRAM W/ AUTODIFF Collected: 08/03/2017 Status: F Source: [facility] 5:37 AM SYSTEM REPOSITORY TYPE CODE TESTS RESULT OUT OF REFERENCE UNITS RANGE LAB IWBC 3.6-10.7 10*3/uL WBC Normal 10.5 LAB RBC 3.80-5.20 10*6/uL Low RBC 2.72 LAB HGB 11.7-16.0 g/dL Low Hemoglobin 7.8 LAB HCT 35.0-47.0 % Low Hematocrit 23.8 LAB MCV 79.0-98.0 fL MCV Normal 87.8 LAB MCH 26.0-34.0 pg MCH Normal 28.7 LAB MCHC 32.0-36.0 % MCHC Normal 32.7 LAB RDW 11.5-14.5 % RDW High 19.8 LAB PLT 140-440 10*3/uL Platelet Normal 152 LAB MPV 7.4-10.4 fL MPV Normal 9.2 LAB GRAN% 40.0-80.0 % Granulocytes Normal 67.6 LAB LYMP% 20.0-40.0 % Lymphocytes Normal 20.7 LAB MONO% 2.0-10.0 % Monocytes Normal 9.4 LAB EOS% 1.0-6.0 % Eosinophils Normal 2.1 LAB BAS% 0.0-2.0 % Basophils Normal 0.2 LAB ANC 1.8-7.0 10*3/uL Abs High Neutrophile Cnt 7.1 LAB ALC 1.0-4.3 10*3/uL Abs Lymph Cnt Normal 2.2 LAB AMC 0.0-0.8 10*3/uL Abs Monocyte High Cnt 1.0 LAB AEC 0.0-0.5 10*3/uL Abs Eosin Cnt Normal 0.2 LAB ABC 0.0-0.2 10*3/uL Abs Baso Cnt Normal 0.0 Performed By: #### HEMDF, BMP3, MG3, PHOS3 #### [facility] [address] [place] [address] GLUCOSE,BEDSIDE Collected: 08/02/2017 Status: F Source: [facility] 9:39 PM SYSTEM REPOSITORY TYPE CODE TESTS RESULT OUT OF RANGE REFERENCE UNITS LAB BGLU 70-100 mg/dL High 132 Glucose,Beds vladimir Result Comment: Test performed by glucose meter. Results may be 10%-15% lower than serum/plasma values. (CLIA ID [id number]) Performed By: #### BGLU #### [facility] [address] [address] HEMOGRAM W/ AUTODIFF Collected: 08/02/2017 Status: F Source: [facility] 3:49 AM SYSTEM REPOSITORY TYPE CODE TESTS RESULT OUT OF REFERENCE UNITS RANGE LAB IWBC 3.6-10.7 10*3/uL WBC High 14.4 LAB RBC 3.80-5.20 10*6/uL Low RBC 3.15 LAB HGB 11.7-16.0 g/dL Low Hemoglobin 9.0 LAB HCT 35.0-47.0 % Low Hematocrit 27.9 LAB MCV 79.0-98.0 fL MCV Normal 88.6 LAB MCH 26.0-34.0 pg MCH Normal 28.5 LAB MCHC 32.0-36.0 % MCHC Normal 32.1 LAB RDW 11.5-14.5 % RDW High 19.9 LAB PLT 140-440 10*3/uL Platelet Normal 190 LAB MPV 7.4-10.4 fL MPV Normal 8.9 LAB GRAN% 40.0-80.0 % Granulocytes High 81.8 LAB LYMP% 20.0-40.0 % Low Lymphocytes 12.0 LAB MONO% 2.0-10.0 % Monocytes Normal 5.7 LAB EOS% 1.0-6.0 % Low Eosinophils 0.4 LAB BAS% 0.0-2.0 % Basophils Normal 0.1 LAB ANC 1.8-7.0 10*3/uL Abs High Neutrophile Cnt 11.8 LAB ALC 1.0-4.3 10*3/uL Abs Lymph Cnt Normal 1.7 LAB AMC 0.0-0.8 10*3/uL Abs Monocyte Normal Cnt 0.8 LAB AEC 0.0-0.5 10*3/uL Abs Eosin Cnt Normal 0.1 LAB ABC 0.0-0.2 10*3/uL Abs Baso Cnt Normal 0.0 Performed By: #### HEMDF, MG3, PHOS3, BMP3M #### [facility] [address] [place] [address] MAGNESIUM Collected: 08/02/2017 Status: F Source: [facility] 3:49 AM SYSTEM REPOSITORY TYPE CODE TESTS RESULT OUT OF REFERENCE UNITS RANGE LAB MG3 1.6-2.3 mg/dL High Magnesium 2.6 Performed By: #### HEMDF, MG3, PHOS3, BMP3M #### [facility] [address] [place] [phone] PHOSPHORUS Collected: 08/02/2017 Status: F Source: [facility] 3:49 AM SYSTEM REPOSITORY TYPE CODE TESTS RESULT OUT OF REFERENCE UNITS RANGE LAB PHOS3 2.5-4.5 mg/dL Low Phosphorus 2.3 Performed By: #### HEMDF, MG3, PHOS3, BMP3M #### [facility] [address] [place] [phone] BASIC METABOLIC PANEL Collected: 08/02/2017 Status: F Source: [facility] 3:49 AM SYSTEM REPOSITORY TYPE CODE TESTS RESULT OUT OF RANGE REFERENCE UNITS LAB NA3 137-145 mmol/L Sodium Normal 140 LAB K3 3.5-5.1 mmol/L Normal Potassium 4.0 LAB CL3 98-107 mmol/L High Chloride 113 LAB CO23 22-30 mmol/L Low Carbon Dioxide 19 LAB ANIN3 NA Anion Gap 8 LAB GLUC3 70-100 mg/dL High Glucose 109 LAB BUN3 7-20 mg/dL High Urea Nitrogen 66 LAB CRET3 0.52-1.25 mg/dL High Creatinine 1.75 LAB GF3BR >60 mL/min eGFR 34.0 LAB GF3WR >60 mL/min eGFR OTHER 28.1 Result Comment: Source- MDRD equation with creatinine calibration to IDMS(NKDEP) eGFR not recommended for drug dose adjustment LAB CA3 8.4-10.2 mg/dL Normal Calcium 8.6 Performed By: #### HEMDF, MG3, PHOS3, BMP3M #### [facility] [address] [place] [address] GLUCOSE,BEDSIDE Collected: 08/01/2017 Status: F Source: [facility] 8:38 PM SYSTEM REPOSITORY TYPE CODE TESTS RESULT OUT OF RANGE REFERENCE UNITS LAB BGLU 70-100 mg/dL High 163 Glucose,Beds vladimir Result Comment: Test performed by glucose meter. Results may be 10%-15% lower than serum/plasma values. (CLIA ID [id number]) Performed By: #### BGLU #### [facility] [address] [place] [address] GLUCOSE,BEDSIDE Collected: 08/01/2017 Status: F Source: [facility] 4:25 PM SYSTEM REPOSITORY TYPE CODE TESTS RESULT OUT OF RANGE REFERENCE UNITS LAB BGLU 70-100 mg/dL High 121 Glucose,Beds vladimir Result Comment: Test performed by glucose meter. Results may be 10%-15% lower than serum/plasma values. (CLIA ID [id number]) Performed By: #### BGLU #### [facility] [address] [place] [address] GLUCOSE,BEDSIDE Collected: 08/01/2017 Status: F Source: [facility] 12:44 PM SYSTEM REPOSITORY TYPE CODE TESTS RESULT OUT OF RANGE REFERENCE UNITS LAB BGLU 70-100 mg/dL High 140 Glucose,Beds vladimir Result Comment: Caregiver Notified; Test performed by glucose meter. Results may be 10%-15% lower than serum/plasma values. (CLIA ID [id number]) Performed By: #### BGLU #### [facility] [address] [place] [address] GLUCOSE,BEDSIDE Collected: 08/01/2017 Status: F Source: [facility] 7:55 AM SYSTEM REPOSITORY TYPE CODE TESTS RESULT OUT OF RANGE REFERENCE UNITS LAB BGLU 70-100 mg/dL High 139 Glucose,Beds vladimir Result Comment: Test performed by glucose meter. Results may be 10%-15% lower than serum/plasma values. (CLIA ID [id number]) Performed By: #### BGLU #### [facility] [address] [place] [address] MAGNESIUM Collected: 08/01/2017 Status: F Source: [facility] 3:36 AM SYSTEM REPOSITORY TYPE CODE TESTS RESULT OUT OF RANGE REFERENCE UNITS LAB MG3 1.6-2.3 mg/dL Normal Magnesium 2.2 Performed By: #### MG3, PHOS3, BMP3M, HEMDF #### [facility] [address] [place] [address] PHOSPHORUS Collected: 08/01/2017 Status: F Source: [facility] 3:36 AM SYSTEM REPOSITORY TYPE CODE TESTS RESULT OUT OF RANGE REFERENCE UNITS LAB PHOS3 2.5-4.5 mg/dL Normal Phosphorus 3.7 Performed By: #### MG3, PHOS3, BMP3M, HEMDF #### [facility] [address] [place] [address] BASIC METABOLIC PANEL Collected: 08/01/2017 Status: F Source: [facility] 3:36 AM SYSTEM REPOSITORY TYPE CODE TESTS RESULT OUT OF RANGE REFERENCE UNITS LAB NA3 137-145 mmol/L Sodium Normal 138 LAB K3 3.5-5.1 mmol/L Normal Potassium 4.1 LAB CL3 98-107 mmol/L High Chloride 113 LAB CO23 22-30 mmol/L Low Carbon Dioxide 19 LAB ANIN3 NA Anion Gap 7 LAB GLUC3 70-100 mg/dL High Glucose 107 LAB BUN3 7-20 mg/dL High Urea Nitrogen 65 LAB CRET3 0.52-1.25 mg/dL High Creatinine 1.49 LAB GF3BR >60 mL/min eGFR 40.9 LAB GF3WR >60 mL/min eGFR OTHER 33.8 Result Comment: Source- MDRD equation with creatinine calibration to IDMS(NKDEP) eGFR not recommended for drug dose adjustment LAB CA3 8.4-10.2 mg/dL Normal Calcium 8.6 Performed By: #### MG3, PHOS3, BMP3M, HEMDF #### [facility] [address] [place] [address] HEMOGRAM W/ AUTODIFF Collected: 08/01/2017 Status: F Source: [facility] 3:36 AM SYSTEM REPOSITORY TYPE CODE TESTS RESULT OUT OF RANGE REFERENCE UNITS LAB IWBC 3.6-10.7 10*3/uL High WBC 13.4 LAB RBC 3.80-5.20 10*6/uL Low RBC 3.19 LAB HGB 11.7-16.0 g/dL Low Hemoglobin 9.0 LAB HCT 35.0-47.0 % Low Hematocrit 28.4 LAB MCV 79.0-98.0 fL MCV Normal 89.1 LAB MCH 26.0-34.0 pg MCH Normal 28.4 LAB MCHC 32.0-36.0 % Low MCHC 31.8 LAB RDW 11.5-14.5 % High RDW 19.5 LAB PLT 140-440 10*3/uL Platelet Normal 191 Result Comment: repeated LAB MPV 7.4-10.4 fL Normal MPV 8.7 LAB GRAN% 40.0-80.0 % High Granulocytes 93.0 LAB LYMP% 20.0-40.0 % Low Lymphocytes 5.2 LAB MONO% 2.0-10.0 % Low Monocytes 1.6 LAB EOS% 1.0-6.0 % Low Eosinophils 0.1 LAB BAS% 0.0-2.0 % Normal Basophils 0.1 LAB ANC 1.8-7.0 10*3/uL High Abs Neutrophile Cnt 12.4 LAB ALC 1.0-4.3 10*3/uL Low Abs Lymph Cnt 0.7 LAB AMC 0.0-0.8 10*3/uL Normal Abs Monocyte Cnt 0.2 LAB AEC 0.0-0.5 10*3/uL Normal Abs Eosin Cnt 0.0 LAB ABC 0.0-0.2 10*3/uL Normal Abs Baso Cnt 0.0 Performed By: #### MG3, PHOS3, BMP3M, HEMDF #### [facility] [address] [address] GLUCOSE,BEDSIDE Collected: 07/31/2017 Status: F Source: [facility] 11:13 PM SYSTEM REPOSITORY TYPE CODE TESTS RESULT OUT OF RANGE REFERENCE UNITS LAB BGLU 70-100 mg/dL High 185 Glucose,Beds vladimir Result Comment: Test performed by glucose meter. Results may be 10%-15% lower than serum/plasma values. (CLIA ID [id number]) Performed By: #### BGLU #### [facility] [address] [address] GLUCOSE,BEDSIDE Collected: 07/31/2017 Status: F Source: [facility] 6:18 PM SYSTEM REPOSITORY TYPE CODE TESTS RESULT OUT OF RANGE REFERENCE UNITS LAB BGLU 70-100 mg/dL High 106 Glucose,Beds vladimir Result Comment: Test performed by glucose meter. Results may be 10%-15% lower than serum/plasma values. (CLIA ID [id number]) Performed By: #### BGLU #### [facility] [address] [place] [address] GLUCOSE,BEDSIDE Collected: 07/31/2017 Status: F Source: [facility] 12:38 PM SYSTEM REPOSITORY TYPE CODE TESTS RESULT OUT OF RANGE REFERENCE UNITS LAB BGLU 70-100 mg/dL High 127 Glucose,Beds vladimir Result Comment: Test performed by glucose meter. Results may be 10%-15% lower than serum/plasma values. (CLIA ID [id number]) Performed By: #### BGLU #### [facility] [address] [place] [address] GLUCOSE,BEDSIDE Collected: 07/31/2017 Status: F Source: [facility] 5:54 AM SYSTEM REPOSITORY TYPE CODE TESTS RESULT OUT OF RANGE REFERENCE UNITS LAB BGLU 70-100 mg/dL High 122 Glucose,Beds vladimir Result Comment: Test performed by glucose meter. Results may be 10%-15% lower than serum/plasma values. (CLIA ID [id number]) Performed By: #### BGLU #### [facility] [address] [place] [id number] HEMOGRAM Collected: 07/31/2017 Status: F Source: [facility] 1:05 AM SYSTEM REPOSITORY TYPE CODE TESTS RESULT OUT OF RANGE REFERENCE UNITS LAB IWBC 3.6-10.7 10*3/uL High WBC 10.9 LAB RBC 3.80-5.20 10*6/uL Low RBC 3.67 LAB HGB 11.7-16.0 g/dL Low Hemoglobin 10.3 LAB HCT 35.0-47.0 % Low Hematocrit 32.7 LAB MCV 79.0-98.0 fL MCV Normal 89.1 LAB MCH 26.0-34.0 pg MCH Normal 28.2 LAB MCHC 32.0-36.0 % Low MCHC 31.6 LAB RDW 11.5-14.5 % High RDW 19.6 LAB PLT 140-440 10*3/uL Platelet Normal 282 LAB MPV 7.4-10.4 fL MPV Normal 8.3 Performed By: #### HEMOG, PT, CMP3, MG3, PHOS3, TRIG3 #### [facility] [address] [id number] PROTHROMBIN TIME Collected: 07/31/2017 Status: F Source: [facility] 1:05 AM SYSTEM REPOSITORY TYPE CODE TESTS RESULT OUT OF REFERENCE UNITS RANGE LAB PROTM 9.0-12.0 s Prothrombin Normal Time 11.9 Result Comment: . LAB INR 0.9-1.1 NA High INR 1.2 Result Comment: Recommended Anticoagulant Therapy: SEE BELOW ----- INR of 2.0 - 3.0 : - Prophylaxis of Venous Thrombosis (high-risk surgery) - Treatment of Venous Thrombosis - Treatment of Pulmonary Embolism (Includes tissue heart valves, Acute Myocardial Infarction to prevent systemic embolism, Valvular Heart Disease, and Atrial Fibrillation) ----- INR of 2.5 - 3.5 : - Mechanical Prosthetic Valves (high risk) - If oral anticoagulant therapy is used to prevent Myocardial Infarction Performed By: #### HEMOG, PT, CMP3, MG3, PHOS3, TRIG3 #### [facility] [address] [address] [address] COMP METABOLIC PANEL Collected: 07/31/2017 Status: F Source: DealerTrack 1:05 AM SYSTEM REPOSITORY TYPE CODE TESTS RESULT OUT OF RANGE REFERENCE UNITS LAB NA3 137-145 mmol/L Sodium Normal 143 LAB K3 3.5-5.1 mmol/L Normal Potassium 3.8 LAB CL3 98-107 mmol/L High Chloride 116 LAB CO23 22-30 mmol/L Low Carbon Dioxide 18 LAB ANIN3 NA Anion Gap 10 LAB GLUC3 70-100 mg/dL High Glucose 101 LAB BUN3 7-20 mg/dL High Urea Nitrogen 67 LAB CRET3 0.52-1.25 mg/dL High Creatinine 1.72 LAB GF3BR >60 mL/min eGFR 34.7 LAB GF3WR >60 mL/min eGFR OTHER 28.6 Result Comment: Source- MDRD equation with creatinine calibration to IDMS(NKDEP) eGFR not recommended for drug dose adjustment LAB CA3 8.4-10.2 mg/dL Calcium Normal 8.7 LAB ALB3 3.5-5.0 g/dL Low Albumin, Serum 2.5 LAB TP3 6.3-8.2 g/dL Low Total Protein 5.6 LAB BILT3 0.2-1.3 mg/dL Normal Bilirubin,Total 0.3 LAB ALKP3 38-126 U/L High Alkaline Phosphatase 134 LAB ALT3 13-69 U/L ALT (SGPT) Normal 45 LAB AST3 15-46 U/L AST (SGOT) Normal 28 Performed By: #### HEMOG, PT, CMP3, MG3, PHOS3, TRIG3 #### [facility] [address] [place] [phone] MAGNESIUM Collected: 07/31/2017 Status: F Source: DealerTrack 1:05 AM SYSTEM REPOSITORY TYPE CODE TESTS RESULT OUT OF RANGE REFERENCE UNITS LAB MG3 1.6-2.3 mg/dL Normal Magnesium 1.9 Performed By: #### HEMOG, PT, CMP3, MG3, PHOS3, TRIG3 #### [facility] [address] [place] [phone] PHOSPHORUS Collected: 07/31/2017 Status: F Source: DealerTrack 1:05 AM SYSTEM REPOSITORY TYPE CODE TESTS RESULT OUT OF REFERENCE UNITS RANGE LAB PHOS3 2.5-4.5 mg/dL High Phosphorus 4.7 Performed By: #### HEMOG, PT, CMP3, MG3, PHOS3, TRIG3 #### [facility] [address] [place] [phone] TRIGLYCERIDE Collected: 07/31/2017 Status: F Source: [facility]erTrack 1:05 AM SYSTEM REPOSITORY TYPE CODE TESTS RESULT OUT OF REFERENCE UNITS RANGE LAB 3TRIG <150 mg/dL Triglyceride Normal 77 Performed By: #### HEMOG, PT, CMP3, MG3, PHOS3, TRIG3 #### [facility] [address] [place] [phone] GLUCOSE,BEDSIDE Collected: 07/31/2017 Status: F Source: DealerTrack 12:17 AM SYSTEM REPOSITORY TYPE CODE TESTS RESULT OUT OF RANGE REFERENCE UNITS LAB BGLU 70-100 mg/dL High 154 Glucose,Beds vladimir Result Comment: Test performed by glucose meter. Results may be 10%-15% lower than serum/plasma values. (CLIA ID [id number]) Performed By: #### BGLU #### [facility] [address] [place] [address] GLUCOSE,BEDSIDE Collected: 07/30/2017 Status: F Source: DealerTrack 4:40 PM SYSTEM REPOSITORY TYPE CODE TESTS RESULT OUT OF RANGE REFERENCE UNITS LAB BGLU 70-100 mg/dL Normal 90 Glucose,Beds vladimir Result Comment: Test performed by glucose meter. Results may be 10%-15% lower than serum/plasma values. (CLIA ID [id number]) Performed By: #### BGLU #### [facility] [address] [place] [address] CR CHEST PORTABLE Observed: 07/30/2017 Status: F Source: DealerTrack 12:58 PM SYSTEM REPOSITORY Patient Name: SHARMAINE HUDSON Diagnostic Radiology Exam Date/Time 07/30/2017 12:35:27 EDT Exam CR Chest Portable Ordering Physician DO TY KATHRYN C Accession Number [id number] CPT4 Codes 45141 () Reason For Exam Line placement Report Clinical: 76-year-old female patient 7 W. Line placement. Chest, AP, 12:19 PM, 07/30/2017. PICC line from left upper extremity is in the mid SVC. Lungs are mildly hyperinflated and the heart has a somewhat narrow vertical configuration, features of COPD. No confluent infiltration or consolidation is seen. There is no indication for cardiac failure. Mild right convex thoracolumbar scoliosis is noted. Apical pleural thickening and scarring is seen on both sides. IMPRESSION: 1. PICC line from the left approximately has the end in the mid SVC. 2. Mild hyperinflation from chronic airway disease. 3. Negative for confluent pneumonia and negative for cardiac failure. Report Dictated on Final Dictated: 07/30/2017 12:58 pm Dictating Physician: MD ORTEGA SHARDUL Signed Date and Time: 07/30/2017 1:00 pm Signed by: MD ORTEGA SHARDUL Transcribed Date and Time: 07/30/2017 12:58 CT ABDOMEN/PELVIS W/O Observed: 07/30/2017 Status: F Source: DealerTrack CONTRAST 11:35 AM SYSTEM REPOSITORY Patient Name: SHARMAINE HUDSON CT Exam Date/Time 07/30/2017 10:33:[address] Abdomen/Pelvis (No PO, No IV) Ordering Physician Jenny WILLOUGHBY SARAH Accession Number [id number] CPT4 Codes 45117 (CT Abdomen/Pelvis (No PO, No IV)) Reason For Exam sacral fistulas Report Clinical: 76-year-old female patient on 7 W. with history of acute kidney injury and sacral fistulas. CT scans of the abdomen and pelvis, following oral contrast, without any IV contrast, 07/30/2017. There is an ostomy in the right lower quadrant, and there is contrast within the ostomy bag, showing there is no obstruction. It appears most of the large bowel has been removed. There is a Mack pouch of the residual rectum which merges imperceptibly along its length with the presacral tissue density. There are hypodense areas in this presacral tissue density on each side, measuring about 2 cm in size and irregular in shape, and these likely represent presacral small abscesses. There are irregular linear densities extending laterally from this presacral tissue to atrophic appearing piriformis muscles. Erosive changes are seen on the anterior aspects of the lower portion of the sacrum. At the perineum posterolaterally on the right a couple of surgical clips are noted. Irregular linear densities thought to be scars are seen in the ischiorectal fat on both sides, and possibly a couple of small lymph nodes on the left. The Mack's pouch comes in contact with the posterior surface of the upper portion of the uterus. Superiorly, there is tissue density that merges imperceptibly with the outer grey of the small bowel loops in the low posterior pelvis. Stomach shows prominent rugae at the upper body and fundus region. Visualized lower lungs show small focal pleural tags and pleural-based linear atelectases anterolaterally in the lingula, lesser degree in the anteromedial portion of the right middle lobe, and occasional such minor atelectatic densities in the left lower lobe anterolaterally and both lower lobe posteromedially. RCA calcification is noted. No focal liver lesion is seen. There are surgical clips at the gallbladder fossa from cholecystectomy. CBD at the roverto hepatis measures about a cm, and it can be followed down to the second portion the duodenum where it is slightly narrower in caliber. Pancreas is unremarkable. Spleen is not enlarged. There are small nodules on the left adrenal, likely of no significance. A few hypodense corticomedullary cortical lesions are seen on both kidneys, likely these are cysts, largest of these about 2 cm in diameter is seen exophytic at the lower pole on the left. No renal calculi are seen, there is no hydronephrosis or hydroureter. Urinary bladder has a slightly thick wall, no bladder stone or obvious bladder wall lesion is evident. Calcification of the aorta and iliac arteries without aneurysmal dilatation are noted. Small left paraortic lymph nodes several millimeters to about a cm in size are noted. Sagittal and coronal reformatted images show no obvious abnormality of the lumbar spine. There is an element of osteoporosis. A focal mixed sclerotic and lytic lesion in the posterior aspect of the right iliac bone along the right SI joint questionably is a chondroid lesion, it is stable compared with the previous study of 02/13/2016, favoring benign consideration. IMPRESSION: 1. Abnormal tissue density anterior to the lower portion of the sacrum and where irregular hypodense areas likely represent small abscesses. Presacral tissue density merges imperceptibly along the posterior aspect of the Mack's pouch, the upper portion of which contacts the upper part of the uterus and small bowel loops situated in the low pelvis posteriorly. 2. Osteoporosis and some erosive changes affecting the anterior aspect of the lower sacrum. Atrophic appearance of the piriformis muscles, worse on the right. 3. Stable appearance of a mixed sclerotic and lytic lesion in the right posterior iliac bone, compared with the study of 02/05/2016. 4. Multiple hypodense renal lesions, probably cysts. 5. Hypertrophic gastric rugae. Postcholecystectomy mild ectasia of the CBD. Report Dictated on Final Dictated: 07/30/2017 11:35 am Dictating Physician: MD ORTEGA SHARDUL Signed Date and Time: 07/30/2017 12:03 pm Signed by: MD ORTEGA SHARDUL Transcribed Date and Time: 07/30/2017 11:35 HEMOGRAM W/ AUTODIFF Collected: 07/30/2017 Status: F Source: DealerTrack 8:22 AM SYSTEM REPOSITORY TYPE CODE TESTS RESULT OUT OF REFERENCE UNITS RANGE LAB IWBC 3.6-10.7 10*3/uL WBC Normal 7.3 LAB RBC 3.80-5.20 10*6/uL RBC Normal 3.81 LAB HGB 11.7-16.0 g/dL Low Hemoglobin 10.8 LAB HCT 35.0-47.0 % Low Hematocrit 33.4 LAB MCV 79.0-98.0 fL MCV Normal 87.7 LAB MCH 26.0-34.0 pg MCH Normal 28.4 LAB MCHC 32.0-36.0 % MCHC Normal 32.3 LAB RDW 11.5-14.5 % RDW High 19.1 LAB PLT 140-440 10*3/uL Platelet Normal 302 LAB MPV 7.4-10.4 fL MPV Normal 7.8 LAB GRAN% 40.0-80.0 % Granulocytes Normal 64.9 LAB LYMP% 20.0-40.0 % Lymphocytes Normal 30.5 LAB MONO% 2.0-10.0 % Monocytes Normal 3.1 LAB EOS% 1.0-6.0 % Eosinophils Normal 1.1 LAB BAS% 0.0-2.0 % Basophils Normal 0.4 LAB ANC 1.8-7.0 10*3/uL Abs Normal Neutrophile Cnt 4.8 LAB ALC 1.0-4.3 10*3/uL Abs Lymph Cnt Normal 2.2 LAB AMC 0.0-0.8 10*3/uL Abs Monocyte Normal Cnt 0.2 LAB AEC 0.0-0.5 10*3/uL Abs Eosin Cnt Normal 0.1 LAB ABC 0.0-0.2 10*3/uL Abs Baso Cnt Normal 0.0 Performed By: #### HEMDF, MG3, LIPA3, BMP3 #### [facility] [address] [place] [phone] MAGNESIUM Collected: 07/30/2017 Status: F Source: DealerTrack 8:22 AM SYSTEM REPOSITORY TYPE CODE TESTS RESULT OUT OF RANGE REFERENCE UNITS LAB MG3 1.6-2.3 mg/dL Normal Magnesium 1.8 Performed By: #### HEMDF, MG3, LIPA3, BMP3 #### [facility] [address] [address] LIPASE Collected: 07/30/2017 Status: F Source: DealerTrack 8:22 AM SYSTEM REPOSITORY TYPE CODE TESTS RESULT OUT OF REFERENCE UNITS RANGE LAB LIPA3 23-300 [IU]/L High Lipase 860 Performed By: #### HEMDF, MG3, LIPA3, BMP3 #### [facility] [employer] [employer] [address] [address] BASIC METABOLIC PANEL Collected: 07/30/2017 Status: F Source: DealerTrack 8:22 AM SYSTEM REPOSITORY TYPE CODE TESTS RESULT OUT OF RANGE REFERENCE UNITS LAB NA3 137-145 mmol/L Sodium Normal 145 LAB K3 3.5-5.1 mmol/L Normal Potassium 3.9 LAB CL3 98-107 mmol/L High Chloride 115 LAB CO23 22-30 mmol/L Low Carbon Dioxide 20 LAB ANIN3 NA Anion Gap 10 LAB GLUC3 70-100 mg/dL Glucose Normal 93 LAB BUN3 7-20 mg/dL High Urea Nitrogen 76 LAB CRET3 0.52-1.25 mg/dL High Creatinine 2.13 LAB GF3BR >60 mL/min eGFR 27.1 LAB GF3WR >60 mL/min eGFR OTHER 22.4 Result Comment: Source- MDRD equation with creatinine calibration to IDMS(NKDEP) eGFR not recommended for drug dose adjustment LAB CA3 8.4-10.2 mg/dL Normal Calcium 8.9 Performed By: #### HEMDF, MG3, LIPA3, BMP3 #### [facility] [employer] [address] [address] HEMOGRAM W/ AUTODIFF Collected: 07/29/2017 Status: F Source: DealerTrack 10:34 PM SYSTEM REPOSITORY TYPE CODE TESTS RESULT OUT OF REFERENCE UNITS RANGE LAB IWBC 3.6-10.7 10*3/uL WBC Normal 7.9 LAB RBC 3.80-5.20 10*6/uL RBC Normal 4.72 LAB HGB 11.7-16.0 g/dL Hemoglobin Normal 13.3 LAB HCT 35.0-47.0 % Hematocrit Normal 41.7 LAB MCV 79.0-98.0 fL MCV Normal 88.2 LAB MCH 26.0-34.0 pg MCH Normal 28.2 LAB MCHC 32.0-36.0 % Low MCHC 31.9 LAB RDW 11.5-14.5 % RDW High 19.4 LAB PLT 140-440 10*3/uL Platelet Normal 386 LAB MPV 7.4-10.4 fL MPV Normal 8.0 LAB GRAN% 40.0-80.0 % Granulocytes Normal 45.8 LAB LYMP% 20.0-40.0 % Lymphocytes High 43.4 LAB MONO% 2.0-10.0 % Monocytes Normal 8.4 LAB EOS% 1.0-6.0 % Eosinophils Normal 1.7 LAB BAS% 0.0-2.0 % Basophils Normal 0.7 LAB ANC 1.8-7.0 10*3/uL Abs Normal Neutrophile Cnt 3.6 LAB ALC 1.0-4.3 10*3/uL Abs Lymph Cnt Normal 3.4 LAB AMC 0.0-0.8 10*3/uL Abs Monocyte Normal Cnt 0.7 LAB AEC 0.0-0.5 10*3/uL Abs Eosin Cnt Normal 0.1 LAB ABC 0.0-0.2 10*3/uL Abs Baso Cnt Normal 0.1 Performed By: #### HEMDF, CMP3, LIPA3, MG3, PHOS3 #### [employer] [address] [place] [phone] COMP METABOLIC PANEL Collected: 07/29/2017 Status: F Source: DealerTrack 10:34 PM SYSTEM REPOSITORY TYPE CODE TESTS RESULT OUT OF RANGE REFERENCE UNITS LAB NA3 137-145 mmol/L High Sodium 148 LAB K3 3.5-5.1 mmol/L Normal Potassium 5.1 LAB CL3 98-107 mmol/L High Chloride 112 LAB CO23 22-30 mmol/L Low Carbon Dioxide 19 LAB ANIN3 NA Anion Gap 16 LAB GLUC3 70-100 mg/dL High Glucose 105 LAB BUN3 7-20 mg/dL High Urea Nitrogen 89 LAB CRET3 0.52-1.25 mg/dL High Creatinine 2.62 LAB GF3BR >60 mL/min eGFR 21.3 LAB GF3WR >60 mL/min eGFR OTHER 17.6 Result Comment: Source- MDRD equation with creatinine calibration to IDMS(NKDEP) eGFR not recommended for drug dose adjustment LAB CA3 8.4-10.2 mg/dL Calcium Normal 9.6 LAB ALB3 3.5-5.0 g/dL Albumin, Serum Normal 4.1 LAB TP3 6.3-8.2 g/dL Total Protein Normal 8.2 LAB BILT3 0.2-1.3 mg/dL Normal Bilirubin,Total 0.4 LAB ALKP3 38-126 U/L High Alkaline Phosphatase 194 LAB ALT3 13-69 U/L ALT (SGPT) Normal 64 LAB AST3 15-46 U/L AST (SGOT) Normal 46 Performed By: #### HEMDF, CMP3, LIPA3, MG3, PHOS3 #### [facility] [address] [place], [place] [phone] LIPASE Collected: 07/29/2017 Status: F Source: DealerTrack 10:34 PM SYSTEM REPOSITORY TYPE CODE TESTS RESULT OUT OF REFERENCE UNITS RANGE LAB LIPA3 23-300 [IU]/L High Lipase 466 Performed By: #### HEMDF, CMP3, LIPA3, MG3, PHOS3 #### [facility] [address] [place], [place] [phone] MAGNESIUM Collected: 07/29/2017 Status: F Source: DealerTrack 10:34 PM SYSTEM REPOSITORY TYPE CODE TESTS RESULT OUT OF REFERENCE UNITS RANGE LAB MG3 1.6-2.3 mg/dL Low Magnesium 1.4 Performed By: #### HEMDF, CMP3, LIPA3, MG3, PHOS3 #### [employer] [facility] [address] [place], [place] [phone] PHOSPHORUS Collected: 07/29/2017 Status: F Source: [facility]erTrack 10:34 PM SYSTEM REPOSITORY TYPE CODE TESTS RESULT OUT OF REFERENCE UNITS RANGE LAB PHOS3 2.5-4.5 mg/dL High Phosphorus 7.5 Performed By: #### HEMDF, CMP3, LIPA3, MG3, PHOS3 #### [employer] [facility] [address] [place] [address] URINALYSIS,MACRO Collected: 07/29/2017 Status: F Source: DealerTrack 10:34 PM SYSTEM REPOSITORY TYPE CODE TESTS RESULT OUT OF REFERENCE UNITS RANGE LAB APPUR Clear NA Appearance sl.cloud LAB COLUR Lt. Yellow NA Color yellow LAB USG 1.005-1.030 NA Specific Normal [place],Urine 1.020 LAB UPH 5.0-8.0 NA pH,Urine Normal 5.0 LAB ULUK Negative NA Leukocytes 2 + LAB UNIT Negative NA Nitrites NEG LAB UPRO Negative mg/dL Total Protein,Urine 25 LAB UGLU Negative mg/dL Glucose,Urine NORM LAB UKET Negative mg/dL Ketone,Urine NEG LAB UURO 0-1 mg/dL Urobilinogen NORM LAB UBIL Negative NA Bilirubin,Ur NEG LAB UBLD Negative {RBC}/uL Occult Blood,Ur 250 Performed By: #### UAMAC, UAMIC #### [facility] [address] [address] URINALYSIS,MICROSCOPIC Collected: Status: F Source: [facility] 07/29/2017 10:34 PM [facility] REPOSITORY TYPE CODE TESTS RESULT OUT OF REFERENCE UNITS RANGE LAB WBCU 0-5 /[HPF] WBC,Urine > 100 LAB RBCU 0-2 /[HPF] RBC,Urine 11 - 25 LAB EPIU 3-5 /[HPF] Epithelial Cells 0 - 2 LAB CARMEN Negative NA Bacteria Few (1-5) LAB YST Negative NA Yeast Many (51-100) Performed By: #### UAMAC, UAMIC #### [address] [address] Observed: 07/29/2017 Status: F Source: [facility] CULTURE URINE 10:34 PM SYSTEM REPOSITORY CULTURE URINE --> Status: F Normal urogenital nina present. Performed By: #### C/UR #### [address] [address] CREATININE FINGERSTICK Collected: 07/29/2017 Status: F Source: [place] 4:39 PM [facility] REPOSITORY TYPE CODE TESTS RESULT OUT OF REFERENCE UNITS RANGE LAB L9100.0210 0.55-1.02 mg/dL High CREATININE WB 2.6 LAB L9100.0220 >60 mL/min Low EGFR WB 19.0000 Performed By: #### L9100.0200 #### [facility] Point of Care [address] [place], [place] [phone] ABDOMEN/PELVIS WITHOUT Observed: 07/29/2017 Status: F Source: [place] 4:26 PM [facility] REPOSITORY [facility] Imaging Services [address] [place] [address] Abdomen/Pelvis without Cont MR#: [id number] Acct: [id number] Name: SHARMAINE FARLEY Rep #: [id number] : 1940 F 76 From: Gigi Pruitt MD PCP: Viviana Murray MD Status: REG CLI Study: Abdomen/Pelvis without Cont Date of Exam: 07/29/17 Exam# [id number] Ordering Dr: Viviana Murray MD STUDY: CT ABDOMEN AND PELVIS WITHOUT CONTRAST REASON FOR EXAM: Female, 76 years old. Fistula the sacrum. Drainage. RADIATION DOSAGE (If Supplied By Facility): CTDIvol = ( 6.04 ) mGy, DLP = ( 274.82 ) mGycm TECHNIQUE: Transaxial images were obtained [...] the GI tract is very limited without oral contrast. Distended stomach. No grossly distended loops [...] limited evaluation without IV and oral contrast especially in the pelvis where it is to differentiate soft tissue structures and cannot exclude neoplasm versus fibrosis in the presacral space. No gross abscess or fluid collection. There are tiny foci of air are seen in the soft tissues behind the sacrum but no gross fistula or sinus tract can be seen. Cannot exclude segments of bowel wall thickening. Electronically Signed: Gigi Pruitt MD at 17:13 EDT , Service support , CC: Viviana Murray MD Sales Consultant: Signed BASIC METABOLIC PANEL Collected: 07/05/2017 Status: F Source: [facility]erTrack 6:53 AM SYSTEM REPOSITORY TYPE CODE TESTS RESULT OUT OF REFERENCE UNITS RANGE LAB NA3 137-145 mmol/L Sodium 137 LAB K3 3.5-5.1 mmol/L Potassium 4.6 LAB CL3 98-107 mmol/L Chloride 106 LAB CO23 22-30 mmol/L Carbon Dioxide 27 LAB ANIN3 Anion Gap 4 LAB GLUC3 70-100 mg/dL Glucose 84 LAB BUN3 7-20 mg/dL Urea High Nitrogen 21 LAB CRET3 0.52-1.25 mg/dL High Creatinine 1.55 LAB GF3BR >60 mL/min eGFR 39.1 LAB GF3WR >60 mL/min eGFR OTHER 32.3 Result Comment: Source- MDRD equation with creatinine calibration to IDMS(NKDEP) eGFR not recommended for drug dose adjustment LAB CA3 8.4-10.2 mg/dL Calcium 8.5 Performed By: #### BMP3M, HEMOG #### The performing lab is in the report. HEMOGRAM Collected: 07/05/2017 Status: F Source: [facility] 6:53 AM SYSTEM REPOSITORY TYPE CODE TESTS RESULT OUT OF REFERENCE UNITS RANGE LAB IWBC 3.6-10.7 10*3/uL WBC 7.4 LAB RBC 3.80-5.20 10*6/uL Low RBC 3.16 LAB HGB 11.7-16.0 g/dL Low Hemoglobin 8.8 LAB HCT 35.0-47.0 % Low Hematocrit 27.6 LAB MCV 79.0-98.0 fL MCV 87.3 LAB MCH 26.0-34.0 pg MCH 27.8 LAB MCHC 32.0-36.0 % Low MCHC 31.8 LAB RDW 11.5-14.5 % RDW High 15.4 LAB PLT 140-440 10*3/uL Platelet 270 LAB MPV 7.4-10.4 fL MPV 8.0 Performed By: #### BMP3M, HEMOG #### The performing lab is in the report. HEMOGRAM Collected: 07/04/2017 Status: F Source: [facility] 12:34 AM SYSTEM REPOSITORY TYPE CODE TESTS RESULT OUT OF REFERENCE UNITS RANGE LAB IWBC 3.6-10.7 10*3/uL WBC High 14.4 LAB RBC 3.80-5.20 10*6/uL Low RBC 3.36 LAB HGB 11.7-16.0 g/dL Low Hemoglobin 9.3 LAB HCT 35.0-47.0 % Low Hematocrit 29.1 LAB MCV 79.0-98.0 fL MCV 86.5 LAB MCH 26.0-34.0 pg MCH 27.5 LAB MCHC 32.0-36.0 % Low MCHC 31.8 LAB RDW 11.5-14.5 % RDW High 15.4 LAB PLT 140-440 10*3/uL Platelet 356 LAB MPV 7.4-10.4 fL MPV 7.8 Performed By: #### HEMOG, BMP3M #### The performing lab is in the report. BASIC METABOLIC PANEL Collected: 07/04/2017 Status: F Source: [facility] 12:34 AM SYSTEM REPOSITORY TYPE CODE TESTS RESULT OUT OF REFERENCE UNITS RANGE LAB NA3 137-145 mmol/L Low Sodium 135 LAB K3 3.5-5.1 mmol/L Potassium 4.8 LAB CL3 98-107 mmol/L Chloride 107 LAB CO23 22-30 mmol/L Low Carbon Dioxide 20 LAB ANIN3 Anion Gap 8 LAB GLUC3 70-100 mg/dL Glucose High 131 LAB BUN3 7-20 mg/dL Urea Nitrogen 16 LAB CRET3 0.52-1.25 mg/dL High Creatinine 1.48 LAB GF3BR >60 mL/min eGFR 41.3 LAB GF3WR >60 mL/min eGFR OTHER 34.0 Result Comment: Source- MDRD equation with creatinine calibration to IDMS(NKDEP) eGFR not recommended for drug dose adjustment LAB CA3 8.4-10.2 mg/dL Calcium 8.5 Performed By: #### HEMOG, BMP3M #### The performing lab is in the report. Observed: 06/24/2017 Status: F [email or web address] GEL 11:37 AM SYSTEM REPOSITORY ABO Group: B Rh, Gel: POS Antibody Screen Gel: NEG Performed By: #### TSGL #### [address] [address] ALLERGIES ALLERGIES DATE TYPE / CODE NAME / CODE REACTION SEVERITY SOURCE 09/23/2015 Drug No Known Unknown [facility] Allergy/4160 Allergies/F00 Hospital 26774(SNOMED [id number](RXNOR Repository CT) M) ENCOUNTERS ENCOUNTERS ADMIT/DISCHARGE ACCOUNT NUMBER ADMITTING ENCOUNTER LOCATION SOURCE CLASS 02/10/2018 [id number] [facility] ding:CT Repository 02/04/2018 2598 Ambulatory Building:[facility] [place] Practices Repository 12/26/2017/12/27/[id number] ding:SDCRoom Repository : AC09 10/29/2017 [id number] [facility] ding:OPBD Repository 10/22/2017 [id number] [facility] ding: Repository 07/30/2017 [id number] [facility] [place] [address] Encounter 7WRoom: System [id number]: Repository [id number] 07/29/2017 [id number] [facility] ding:CT Repository 07/03/2017 [id number] [facility] [place] [address] 6WRoom: System [id number]: Repository [id number] 06/24/2017 [id number] Ambulatory [facility] Repository PAYERS PAYERS ENCOUNTER GUARANTOR PAYER SUBSCRIBER SOURCE 02/10/2018 SHARMAINE Reinoso Primary SHARMAINE Phillipsoster [id number] Insurance:MEDICARE OBRYONDOB: [place], [place] PART A BPolicy [id number] Hospital [address]Jhq: (419) Number: Repository [phone] (HP) [id number] Date:2018-01-29 02/10/2018 Secondary SHARMAINE Arleth Maicol Insurance:CIGNA MCR OBRYONDOB: Community SUPPLEMENT [id number] [facility] Number: [id number] Date:[id number] AN [facility] [address] [address], [place] [address]JO: 02/10/2018 Tertiary NOT GIVENUNK [place] Insurance:SELF PAY [facility] Number: Effective Repository Date:2018-01-29 02/04/2018 SHARMAINE R Primary SHARMAINE R OHIP Practices OBRYONDOB: Insurance:MedicarePol OBRYONDOB: Repository W icy Number: [id number] [facility] [id number] [address] [place], [place] Date:0265-88-27Vwbe [place], [place] [address]Tsu: (419) Name:MAIL CALLER [address] [phone]: [id number], [place] [phone] (HP) (HP)Tel: [phone]: [phone] 02/04/2018 Secondary SHARMAINE R OHIP Practices Insurance:CignaPolicy OBRYONDOB: Repository Number: [id number] Date:0579-24-48Xwpj [place], [place] Name:[address] [address]Mrx: [id number] Bruce ~(2 [phone]: [phone] (QO) [phone] 02/04/2018 Tertiary SHARMAINE R OHIP Practices Insurance:MedicarePol OBRYONDOB: Repository icy Number: [id number] [address] Date: [place], [place] [id number] [address]Cbf: Name:MAIL CALLER [address] ~( [phone], [place] 19 (HP) [phone]: 02/04/2018 Tertiary SHARMAINE R OHIP Practices Insurance:MedicarePol OBRYONDOB: Repository icy Number: [id number] W [facility] Date: - [place], [place] [id number] [address]Yvb: Name:MAIL CALLER [address] ~(4 [phone], [place] 19 (HP) [phone]: 02/04/2018 [facility] SHARMAINE R OHIP Practices Insurance:Whiteash OBRYONDOB: Repository BC/BSPolicy Number: [id number] W [facility] Date:2009-03-18 [place], [place] [id number] [address]Oxw: Name:GPO [address] ~([address] [phone] [place] 19 (HP) [id number]: 02/04/2018 [facility] SHARMAINE R OHIP Practices Insurance:Whiteash/Medi OBRYONDOB: Repository care Adv planPolicy [id number] Number: [facility] [id number] [place], [place] Date:2011-03-18Tel: [id number] ~(4 Name:[address] (HP) [id number], [place] [id number]: 02/04/2018 [facility] SHARMAINE R OHIP Practices Insurance:Humana OBRYONDOB: Repository Choice PPOPolicy [id number] Number: [facility] [id number] [place], [place] Date:2016-03-18Tel: [id number] ~(4 Name:[address] ([place]) [address], [place] [address]NE: 12/26/2017 SHARMAINE R Primary SHARMAINE R Maicol [id number] [facility] Insurance:MEDICARE OBRYONDOB: [place] PART A BPolicy [id number] [address]Rzc: (419) Number: Repository [phone] () [id number] Date:2017-11-19 12/26/2017 Secondary SHARMAINE R Maicol Insurance:KENNY MENDEZ OBRYONDOB: Community SUPPLEMENT [id number] Number: [id number] Date:[id number] AN [facility] [address] [address], [place] [address]SM: 12/26/2017 Tertiary NOT GIVENUNK [place] Insurance:SELF PAY [facility]: Effective Repository Date:2017-11-19 10/29/2017 SHARMAINE R Primary SHARMAINE R [place] [id number] Insurance:MEDICARE OBRYONDOB: [place] PART A [facility] [id number] Hospital [address]Jqo: (419) Number: Repository [phone] () [id number] Date:2017-06-04 10/29/2017 Secondary SHARMAINE R Maicol Insurance:KENNY MENDEZ OBRYONDOB: Community SUPPLEMENT [id number] Repository Number: [id number] Date:[id number] AN [facility] [address] [address], [place] [address]GB: 10/29/2017 Tertiary NOT GIVENUNK Maicol Insurance:SELF PAY [facility] Number: Effective Repository Date:2017-06-04 10/22/2017 SHARMAINE R Primary SHARMAINE R [place] [id number] Insurance:MEDICARE OBRYONDOB: [place] PART A [facility] [id number] Hospital [address]Ukf: [phone]) Number: Repository [phone] () [id number] Date:2017-10-15 10/22/2017 Secondary SHARMAINE R [place] Insurance:KENNY MENDEZ OBRYONDOB: Community SUPPLEMENT [id number] Repository Number: [id number] Date:[id number] AN [facility] [address] [address], [place] [address]QN: 10/22/2017 Tertiary NOT GIVENUNK [place] Insurance:SELF PAY [facility] Number: Effective Repository Date:2017-10-15 07/30/2017 Sharmaine Primary Sharmaine [facility] O'BryonDOB: Insurance:MedicarePol O'BryonDOB: System icy Number: Effective [id number] Repository [facility] Date: [place], [place] [address]Mbz: () 07/30/2017 Secondary Sharmaine [facility] Insurance:MedicarePol O'BryonDOB: System icy Number: Effective [id number] Repository Date: 07/30/2017 Tertiary Sharmaine [facility] Insurance:CignaPolicy O'BryonDOB: System Number: Effective [id number] Repository Date: 07/29/2017 SHARMAINE R Primary SHARMAINE Reinoso Maicol [id number] [facility] Insurance:MEDICARE OBRYONDOB: Community [place] PART A BPolicy [id number] [facility] [address]Ynm: (074) Number: Repository [phone] () [id number] Date:2017-07-29 07/29/2017 Secondary SHARMAINE Milian Insurance:CIGNA MCR OBRYONDOB: Community SUPPLEMENT [id number] [facility] SOLUTIONSPoly Repository Number: [id number] Date:[id number] [address] [facility] [address] [address], [place] [address]PE: 07/29/2017 Tertiary NOT GIVENUNK [place] Insurance:SELF PAY [facility] Number: Effective Repository Date:2017-07-29 07/03/2017 Sharmaine Primary Sharmaine [facility] O'BryonDOB: Insurance:MedicarePol O'BryonDOB: System icy Number: Effective [id number] Repository [facility] Date: [place], [place] [address]She: () 07/03/2017 Secondary Sharmaine [facility] Insurance:MedicarePol O'BryonDOB: System icy Number: Effective [id number] Repository Date: 07/03/2017 [facility] Insurance:CignaPolicy O'BryonDOB: System Number: Effective [id number] Repository Date: 06/24/2017 [facility] Health O'BryonDOB: Insurance:MedicarePol O'BryonDOB: System icy Number: Effective [id number] Repository [facility] Date: [place], [place] [address]Wdg: () 06/24/2017 Secondary [facility] Insurance:MedicarePol O'BryonDOB: System icy Number: Effective [id number] Repository Date: 06/24/2017 [facility] Insurance:CignaPolicy O'BryonDOB: System Number: Effective [id number] Repository Date:"
== END ==
PROVIDERS: Family Provider Internal Medicine; PCP Internal Medicine
DX: N89.8 Other specified noninflammatory disorders of vagina (principal); Z87.19 Personal history of other diseases of the digestive system
CPT/HCPCS: 74176

== ENCOUNTER → 2018-04-14 13:30 | Outpatient (CLI) | payer MEDICARE, OTHER, SELFPAY ==
--- NOTE | 2018-04-14 13:48 | CT_ITS ---
HISTORY: LUNG NODULE FOUND ON CT ABD/PEL+SMOKER X63 YEARS 1PPD TECHNIQUE: Helically acquired images were obtained of the chest. A radiation dose optimization technique was used for this scan. IV Contrast dosage and agent: None. COMPARISON: 02/10/18 CT abdomen pelvis. FINDINGS: # of images incl. paperwork: [phone] UPPER ABDOMEN: Unremarkable. HEART AND PERICARDIUM AND GREAT VESSELS: Mild cardiomegaly. Coronary artery atherosclerosis. Mild dilation of the main pulmonary arteries bilaterally. MEDIASTINUM AND CHA: There is no mediastinal or hilar adenopathy. Esophagus is unremarkable. There is no hiatal hernia. SOFT TISSUES: Included thyroid gland is unremarkable. There is no axillary, supraclavicular or lower cervical adenopathy. LUNGS AND LARGE AIRWAYS: Moderate emphysema. Calcified granulomas left lung apex. Biapical pleural scarring. Bilateral lower lobe segmental bronchial mucus plugging. The discrete left lower lobe nodule seen on the previous study is no longer evident. There is more confluent pleural-parenchymal location in the left greater than right lung base, and in the right middle lobe and lingula, today. BONES: No suspicious lytic or blastic abnormality observed. CT/Chest without Contrast IMPRESSION: Moderate emphysema with pleural/parenchymal scarring. The discrete left lower lobe nodule seen on the previous CT abdomen pelvis is not evident today. Coronary artery atherosclerosis with mild cardiomegaly. Prominent in caliber pulmonary arteries suggestive of pulmonary artery hypertension. Individualized dose optimization techniques were used for this CT. at 1516 Reported and signed by: Ja Strickland MD Electronically Signed: Ja Strickland, at 15:15 EST Tel , Service support ,
== END ==
PROVIDERS: Family Provider Internal Medicine; PCP Internal Medicine; Referring Provider Internal Medicine; Visit Provider Internal Medicine
DX: R91.1 Solitary pulmonary nodule (principal)
CPT/HCPCS: 71250

== ENCOUNTER → 2018-07-02 13:13 | Outpatient (CLI) | payer MEDICARE, OTHER, SELFPAY ==
[2017-12-26 11:34] VITALS: BMI 18.3
--- NOTE | 2018-07-02 13:15 | ECHOD_ITS ---
Reason For Study: phtn Procedure This was a 2D Doppler, Color Flow transthoracic echocardiogram. Exam performed in department. Left Ventricle Normal size and thickness. The estimated ejection fraction is 65 %. Stage 1 diastolic dysfunction. No regional wall motion abnormalities noted. Right Ventricle Normal size and thickness. Normal systolic function. Atria Normal left atrium. Normal right atrium. Normal atrial septum. Mitral Valve The mitral valve is structurally normal. No prolapse or stenosis seen. Mild (1+) mitral valve insufficiency. Tricuspid Valve Normal tricuspid valve. Mild to moderate (1-2+) tricuspid valve insufficiency. Right ventricular systolic pressure estimated to be 28 mmHg. Aortic Valve Trisinus/trileaflet aortic valve. Mild (1+) aortic valve insufficiency. Pulmonic Valve Normal pulmonic valve. Great Vessels Normal aortic root. Normal arch. Normal inferior vena cava. Inferior vena cava collapse with sniff. Pericardium/Pleural No pericardial effusion. MMode/2D Measurements & Calculations LVIDd: 4.3 cm IVSd: 1.1 cm LA dimension: 2.9 cm LVIDs: 2.6 cm LVPWd: 1.0 cm FS: 39.3 % LAV(MOD-bp): 38.0 ml LVAd ap4: 23.4 cm2 SV(MOD-sp4): 42.1 ml LAV(MOD-bp) Indexed: 24.1 ml/m2 EDV(MOD-sp4): 71.6 ml LAV(MOD-sp2): 33.1 ml EDV(sp4-el): 73.6 ml LAV(MOD-sp4): 38.5 ml LVAs ap4: 13.5 cm2 ESV(MOD-sp4): 29.5 ml ESV(sp4-el): 29.4 ml EF(MOD-sp4): 58.8 % EF(sp4-el): 60.0 % SV(sp4-el): 44.2 ml LA A4 area: 15.5 cm2 RA A4 area: 15.1 cm2 Doppler Measurements & Calculations Lat Peak E' Nayan: 5.6 cm/sec Med Peak E' Nayan: 5.0 cm/sec Interpretation Summary The estimated ejection fraction is 65 %. Stage 1 diastolic dysfunction. Mild (1+) mitral valve insufficiency. Mild to moderate (1-2+) tricuspid valve insufficiency. Right ventricular systolic pressure estimated to be 28 mmHg. Mild (1+) aortic valve insufficiency. There is no comparison study available. Ordering Physician: Viviana Murray Referring Physician: Viviana Murray Performed By: Dorothy Davis, MARISSA, RVT
== END ==
PROVIDERS: Family Provider Internal Medicine; PCP Internal Medicine; Referring Provider Internal Medicine; Visit Provider Internal Medicine
DX: I27.20 Pulmonary hypertension, unspecified (principal); J98.3 Compensatory emphysema
CPT/HCPCS: 93306

== ENCOUNTER → 2018-07-14 11:06 | Outpatient (CLI) | payer MEDICARE, OTHER, SELFPAY ==
[2017-12-26 11:34] VITALS: BMI 18.3
--- NOTE | 2018-07-14 11:44 | EKG12_ITS ---
Test Reason : ARM PAIN Blood Pressure : / mmHG Vent. Rate : 049 BPM Atrial Rate : 049 BPM P-R Int : 206 ms QRS Dur : 092 ms QT Int : 440 ms P-R-T Axes : 073 033 071 degrees QTc Int : 397 ms Sinus bradycardia Low Voltage QRS (Limb Leads) Septal NC, age undetermined, cannot be excluded Nonspecific T wave abnormality Abnormal ECG Confirmed by CAYDEN CARTWRIGHT, SUSHANT ([id number]), deputy editor in chief ANNETTE VARNER ([id number]) on 07/15/2018 11:23:35 AM Referred By: Viviana Murray Confirmed By:SUSHANT RODARTE MD
--- NOTE | 2018-07-14 11:59 | RAD_ITS ---
STUDY: X-RAY CHEST REASON FOR EXAM: Female, 77 years old. Chest pain TECHNIQUE: Frontal and lateral views of the chest COMPARISON: CT dated 04/14/2018. FINDINGS: The lungs are hyperexpanded, but clear. There are no pleural effusions. There is no pneumothorax. The heart is normal in size. The visualized osseous structures are within normal limits. RAD/Chest PA and Lateral IMPRESSION: No acute thoracic pathology. Electronically Signed: Timur Peralta, at 19:19 EDT Tel , Service support ,
[2018-07-14 12:09] LABS: Hematocrit 41.9 % (37-47); Hemoglobin 13.9 g/dl (12.0-15.0); Mean Corp Hgb Conc 33.2 g/gl (32-36); Mean Corpuscular Hgb 31.7 pg (27.0-32.0); Mean Corpuscular Volume 95.4 fL (81-99); Mean Platelet Vol. 10.1 fl (6.2-12.0); Platelet Count 261 K/mm3 (150-450); RBC Distribution Width CV 15.2 % (11.6-14.6); RBC Distribution Width SD 51.7 fl (35.1-43.9); Red Blood Count 4.39 M/mm3 (4.2-5.4); White Blood Count 5.2 K/mm3 (4.4-11.0)
[2018-07-14 12:12] LABS: Color, Urine Yellow (Yellow); Glucose, Dipstick Normal (Normal); Ketone-Dipstick Negative (Negative); Leukocyte Esterase-Dipstick 100 /ul (Negative); Nitrite-Dipstick Negative (Negative); Occult Blood-Urine 150 /ul (Negative); Protein-Dipstick 30 mg/dl (Negative); Scan Indicated on CBC? Y/N NO; Specific Gravity, Urine 1.015 (1.002-1.030); Urine Bilirubin Dipstick Negative (Negative); Urine Clarity Clear (Clear); Urine Urobilinogen Normal (Normal)
[2018-07-14 12:44] LABS: Vitamin B12 371 pg/mL (211-911)
[2018-07-14 12:56] LABS: ALB/GLOB Ratio 0.9 RATIO (0.9-2.4); AST(SGOT) 23 U/L (15-37); Alanine Aminotransfer ALT/SGPT 21 U/L (13-56); Albumin, Serum 3.7 g/dL (3.2-5.0); Alkaline Phosphatase 129 U/L (45-117); Anion Gap 6 (5-15); BUN 35 mg/dL (7-18); CPK Total, Creatine Kinase 112 U/L (26-192); Calcium,Total 9.2 mg/dL (8.5-10.1); Chloride 106 mmol/L (98-107); Creatinine, Serum 1.84 mg/dL (0.55-1.02); EST Glomerular Filtration Rate 28 mL/min (>60); Est Glom Filt Rate - Afr Amer 34 mL/min (>60); Globulin 4.2 g/dL (2.2-4.2); Glucose 100 mg/dL (74-106); Potassium 4.9 mmol/L (3.5-5.1); Protein, Total 7.9 g/dL (6.4-8.2); Sodium Level 139 mmol/L (136-145)
== END ==
PROVIDERS: Family Provider Internal Medicine; PCP Internal Medicine; Referring Provider Internal Medicine; Visit Provider Internal Medicine
DX: R07.89 Other chest pain (principal); I10 Essential (primary) hypertension; D51.8 Other vitamin B12 deficiency anemias
CPT/HCPCS: 36415; 71046; 80053; 81002; 82550; 82607; 84484; 85027; 93005

== ENCOUNTER → 2018-07-22 06:39 | Outpatient (CLI) | payer MEDICARE, OTHER, SELFPAY ==
--- NOTE | 2018-07-22 12:09 | STRESSREP_ITS ---
Stress Test Report Date: 07-22-18 Procedure: Pharmacologic stress nuclear imaging study Indications: Chest pain Consent: Per the patient Procedure: The patient underwent pharmacologic (Regadenoson) evaluation with a peak heart rate of 85 beats per minute (60 %predicted maximal heart rate) and a peak blood pressure of 142/70 mmHg. The baseline ECG demonstrated sinus bradycardia. The peak pharmacologic ECG demonstrated no obvious ECG changes. There were no cardiac dysrhythmias pretest, during pharmacologic infusion, or recovery. There was no complaint of chest discomfort during pharmacologic infusion or recovery. The examination was discontinued secondary to completion of protocol. Impression: 1. Pharmacologic (Regadenoson) evaluation 2. Peak pharmacologic ECG with no obvious ECG changes. 3. There were no cardiac dysrhythmias pretest, during pharmacologic infusion, or recovery. 4. Nuclear images pending Myocardial perfusion imaging study: Technique: The patient was injected with 11.6 millicuries of technetium 99m Cardiolite and subsequently rest SPECT Cardiolite nuclear imaging was obtained in the horizontal long, vertical long, and short axis views. The patient underwent pharmacologic (Regadenoson) evaluation with a peak heart rate of 85 beats per minute (60 % percent predicted maximal heart rate) and a peak blood pressure of 142/70 mmHg. The patient was injected with 32.1 millicuries of technetium 99m Cardiolite and subsequently stress SPECT Cardiolite nuclear imaging was obtained in the horizontal long, vertical long, and short axis views. A gated Cardiolite study at peak stress was obtained. Interpretation: Rest and stress SPECT Cardiolite nuclear imaging status post realignment, normalization, and attenuation correction demonstrate relative uniform tracer uptake and myocardial perfusion appearing within normal limits. There is end systolic thickening and brightening. The gated Cardiolite study demonstrates myocardial thickening and inward wall motion. The reported LVEF is 80 %. Impression: 1. Rest and stress SPECT Cardiolite nuclear imaging demonstrate relative uniform tracer uptake and myocardial perfusion appearing within normal limits. 2. The gated Cardiolite study reports an LVEF of 80 %. This note was generated with GoLive! Mobileation software. It may contain incorrect words, spelling, and punctuation that were not noted in checking the note before signing.
== END ==
PROVIDERS: Family Provider Internal Medicine; PCP Internal Medicine; Referring Provider Internal Medicine; Visit Provider Internal Medicine
DX: R07.89 Other chest pain (principal)
CPT/HCPCS: 78452; 93017; A9500; A4216; J2785

== ENCOUNTER → 2018-12-23 13:51 | Outpatient (CLI) | payer MEDICARE, OTHER, SELFPAY ==
--- NOTE | 2018-12-23 13:56 | RAD_ITS ---
STUDY: X-RAY - RIGHT KNEE REASON FOR EXAM: Female, 78 years old. Pain TECHNIQUE: 4 view(s) of the knee. COMPARISON: None. FINDINGS: Normal visualized distal femur. Normal visualized proximal tibia and fibula. Normal proximal tibiofibular articulation. There is no demonstrated fracture. Normal medial femorotibial compartment. Normal lateral femorotibial compartment. Normal patellofemoral articulation. There is no demonstrated joint effusion. The soft tissue structures are unremarkable. RAD/Knee 4 or More Views IMPRESSION: Normal x-ray examination of the knee. Electronically Signed: Gigi Pruitt MD at 18:45 EDT , Service support ,
== END ==
PROVIDERS: Family Provider Internal Medicine; PCP Internal Medicine; Referring Provider Internal Medicine; Visit Provider Internal Medicine
DX: M25.561 Pain in right knee (principal)
CPT/HCPCS: 73564

== ENCOUNTER → 2019-03-16 10:54 | Outpatient (CLI) | payer MEDICARE, OTHER, SELFPAY ==
--- NOTE | 2019-03-16 10:56 | BI_ITS ---
MAMMOGRAPHY - BILATERAL SCREENING 3-D TOMOSYNTHESIS REASON FOR EXAM: Female, 78 years old. NO FAM HX -- GAINED 20# -- NO SX PERTINENT HISTORY: No significant family history. TECHNIQUE: 2-D mammograms and 3-D Tomosynthesis of the breast (s) were performed. CAD was performed. COMPARISON: October 29, 2017. FINDINGS: The breast composition is heterogeneously dense within bilateral subareolar regions which can result in obscuration of small breast masses. Scattered benign calcifications are seen. No dense spiculated masses or suspicious microcalcifications are identified. No architectural distortion is identified. There is no skin thickening or retraction. There has been no significant change since the prior study. BI/SCREEN MAMM (CAD) W/KRISTIE BILAT IMPRESSION: No mammographic signs of malignancy. Routine yearly mammograms recommended. ASSESSMENT CATEGORY: BIRADS Category 2: Benign. A letter regarding these results will be sent to the patient by the facility within 30 days. FOLLOW UP RECOMMENDATION: Yearly follow up mammogram recommended. (A) Approximately 10% of breast cancers are not detected by mammography. A normal mammogram should not delay biopsy of a clinically suspicious abnormality. Electronically Signed: Connor Eduardo MD at 13:07 EST , Service support ,
== END ==
PROVIDERS: Family Provider Internal Medicine; PCP Internal Medicine; Referring Provider Internal Medicine; Visit Provider Internal Medicine
DX: Z12.31 Encounter for screening mammogram for malignant neoplasm of breast (principal)
CPT/HCPCS: 77063; 77067

== ENCOUNTER → 2019-09-07 11:42 | Outpatient (CLI) | payer MEDICARE, OTHER, SELFPAY ==
[2017-12-26 11:34] VITALS: BMI 18.3
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
== END ==
PROVIDERS: PCP Internal Medicine; Referring Provider Internal Medicine; Visit Provider Internal Medicine
DX: R20.0 Anesthesia of skin (principal); R20.2 Paresthesia of skin
CPT/HCPCS: 72040

== ENCOUNTER → 2019-09-29 13:44 | Outpatient (CLI) | payer MEDICARE, OTHER, SELFPAY | PROVIDERS: PCP Internal Medicine; Referring Provider Internal Medicine; Visit Provider Internal Medicine | DX: Z78.0 Asymptomatic menopausal state (principal) ==

== ENCOUNTER → 2019-11-03 14:09 | Outpatient (CLI) | payer MEDICARE, OTHER, SELFPAY ==
--- NOTE | 2019-11-03 14:13 | BD_ITS ---
STUDY: DUAL ENERGY X-RAY ABSORPTIOMETRY / DXA REASON FOR EXAM: Female, 79 years old. Age of mayda 37. Pat is 117.4# and 63.25 and quot; a loss of 2 and quot; per pat. Smoking for 65 yrs now. Takes levothyroxin, 1000 mg of calcium and a multi-vit. Past hx of taking Boniva, now she has been on Prolia for about 4 yrs, the last injection was about 1 yr ago. Exercises moderatly. Mother has osteo. Hx of a patella fx. TECHNIQUE: Bone Mineral Density (BMD) measurements of lumbar spine and bilateral hips were obtained. COMPARISON: Comparison is made with prior study dated 10/29/2017. FINDINGS: Lumbar Spine (L1-L4): g/cm2 (0.659) / T-score (-4.2) / Z-score (-2.4) Findings are suggestive of osteoporosis with a high fracture risk. Left Femur Total: g/cm2 (0.650) / T-score (-2.8) / Z-score (-0.8) Left Femoral Neck: g/cm2 (0.658) / T-score (-2.7) / Z-score (-0.5) Right Femur Total: g/cm2 (0.574) / T-score (-3.4) / Z-score (-1.4) Right Femoral Neck: g/cm2 (0.621) / T-score (-3.0) / Z-score (-0.8) The T-Scores on the most recent prior examination were: Lumbar Spine (L1-L4): There has been improvement of bone density since the previous examination. Left Femur Total: which represents an improvement of 8%. Right Femur Total: which represents an improvement of 9.3%. BD/Dexa Bone Density Study IMPRESSION: The patient is considered osteoporotic as outlined below according to World Diego Organization (WHO) criteria with a high fracture risk. There has been improvement of bone density since the previous examination. Reference Information: The T-score is the number of standard deviations above or below the standard which is normal for young adults at their peak bone mineral density. The World Health Organization (WHO) interprets the T-scores as follows: Above -1 Normal bone density Between -1 and -2.5 Osteopenia Equal to / or below -2.5 Osteoporosis As a practical clinical guideline, osteopenia may be graded as follows: Mild -1 through -1.5 Moderate -1.6 through -2.0 Severe -2.1 through -2.4 The Z-score is the number of standard deviations above or below age-matched controls. A Z-score of less than -1.5 would be considered abnormal. References: 1. NIH Osteoporosis and Related Bone Diseases http://www.osteo.org 2. International Society for Clinical Densitometry http://www.iscd.org 3. National Osteoporosis Foundation http://www.nof.org Electronically Signed: Jose Chan, at 14:13 EDT , Service support ,
== END ==
PROVIDERS: PCP Internal Medicine; Referring Provider Internal Medicine; Visit Provider Internal Medicine
DX: Z78.0 Asymptomatic menopausal state (principal)
CPT/HCPCS: 77080

== ENCOUNTER 2020-10-14 05:52 | Day surgery (SDC) | payer MEDICARE, SELFPAY ==
[2020-10-14 06:23] VITALS: BP 180/67; PULSE 63; RESP 18; TEMP 36.2; O2SAT 100; BMI 19.3
[2020-10-14] MEDS: Lidocaine 1% /Epi 1:100 (50ml) 50 ML VIAL (07:45)
--- NOTE | 2020-10-14 08:10 | PCM.OPRPT ---
Problems Associated Problem List Diagnoses (1) Mixed conductive and sensorineural hearing loss, unilateral, right ear with restricted hearing on the contralateral side: (2) Bilateral tympanic membrane perforation: Report of Operation Date of Procedure: 10/14/20 Pre-Operative Diagnosis: Mixed right hearing loss with subtotal tympanic membrane perforation Post-Operative Diagnosis: Same Surgery/Procedure Performed:: Placement of bone conductive hearing device PONTO 9 mm abutment Description of Surgical Findings:: Samantha is an 79-year-old female with longstanding hearing loss complicated by a large tympanic membrane perforation which resulted in drainage with any occlusion of the ear canal and precluding the use of a traditional hearing aid. Placement of a bone anchored device was offered to circumvent this complication and she was eager to proceed. The risks, alternatives, potential complications, and benefits were discussed at length and any questions answered to the patient and/or caregiver's satisfaction. Witnessed informed consent was obtained in the office, and the patient and/or caregiver was agreeable to proceed. Procedure went as follows: The patient was identified in the preoperative holding after site marking the appropriate ear in accordance with the patient's history, office chart, and physical exam. The patient was then brought to the operating room and placed under general anesthesia and intubated. When appropriate anesthesia was obtained, the scalp was prepped and draped in usual sterile fashion. The abutment site was then marked 5 cm posterior to the external auditory meatus and injected with 1 mL of 1% lidocaine with 100,000 epinephrine. Using a 5 mm punch, the skin and subcutaneous tissues were incised and resected. The periosteum overlying the operative site was then removed sharply with an iris scissor. The pilot plant technician drill hole was then created and palpated to ensure bone at the bottom depth of the hole and then finalized to 4 mm in size to allow for placement of the titanium abutment. The bony fragments were then suctioned and irrigated clear and the 4 x 9 mm abutment was then placed in accordance with the manufacture's directions. Xeroform gauze was then placed at the skin edge followed by the healing cap. The patient was then returned to anesthesia, was revived and extubated without complication having tolerated the procedure well. Surgeon: Benny Rico Type of Anesthesia: General Anesthesiologist: Chase Rivera Special Medications: none Specimen's removed: none Drains: none Estimated Blood Loss (mL): 5 mL Fluids Replaced: 400 mL Grafts/Implants Used: 9 mm PONTO abutment Complications none Admit VTE Documentation VTE Present on Admission: No VTE Mechan Device Prophylaxis: SCD's VTE Pharm Prophylaxis ordered?: No
[2020-10-14 08:17] VITALS: BP 157/66; BP 180/67; PULSE 77; RESP 16; TEMP 36.2; O2SAT 95
--- NOTE | 2020-10-14 08:18 | PCM.DC ---
Discharge Instructions Diet Discharge Diet: No restrictions Activity Discharge Activity: Return to Normal Activity Dressing / Incision Call your doctor if your incision/area has: Increased Pain/ Swelling and Foul Smelling Discharge Call your doctor if you observe: Fever of 101 or Higher and Uncontrolled pain Cleanse incision/area with: Keep Dressing Clean & Dry Follow Up Care Please Follow Up With: Benny Rico MD When: 1 week Test Results: Test results from this visit will be discussed in further detail at your follow-up appointment, if applicable. Discharge Plan Admission Primary Reason for Your Visit: Mixed hearing loss right ear, tympanic perforation Attending Provider: Benny Rico Primary Care Provider: Viviana Murray Discharge Orders/Prescriptions Prescriptions: New acetaminophen 500 mg Tablet 500 mg PO Q4H PRN PRN (Reason: Pain Score 1-5/10) Qty: 0 RF: 0 Continued oxycodone-acetaminophen [Percocet] 10-325 mg tablet 1 tab PO Q6H PRN (Reason: Pain) RF: 0 atorvastatin 10 mg tablet 10 mg PO DAILY RF: 0 losartan 25 mg tablet 25 mg PO DAILY RF: 0 cyanocobalamin (vitamin B-12) 1,000 MCG/ML solution 500 mcg IM QMONTH RF: 0 apixaban 2.5 MG tablet 2.5 mg PO BID RF: 0 levothyroxine 125 MCG tablet 125 mcg PO DAILY@0600 Qty: 30 RF: 0 atenolol 50 mg tablet 25 mg PO DAILY RF: 0 cholecalciferol (vitamin D3) 50,000 UNIT capsule 50 mcg PO WE RF: 0 Referrals / Follow Up: Viviana Murray MD [Primary Care Provider] - Disposition Disposition (needs filled in before D/C Order can be placed): Home, Self Care
[2020-10-14 08:30] VITALS: BP 146/60; BP 180/67; PULSE 70; RESP 16; O2SAT 96
[2020-10-14 08:34] VITALS: BP 141/60; BP 180/67; PULSE 71; RESP 16; TEMP 36.1; O2SAT 97
[2020-10-14 09:40] VITALS: BP 150/51; BP 180/67; PULSE 68; RESP 16; TEMP 37; O2SAT 98
== END 2020-10-14 09:45 | disposition home or self-care (01) ==
LOC: SDC 05:53 → AC 05:54
PROVIDERS: PCP Internal Medicine; Referring Provider Otolaryngology; Visit Provider Otolaryngology
PROC: (CPT 69710; principal; 2020-10-14 07:15)
DX: H90.A31 Mixed conductive and sensorineural hearing loss, unilateral, right ear with restricted hearing on the contralateral side (principal); H72.03 Central perforation of tympanic membrane, bilateral; I25.10 Atherosclerotic heart disease of native coronary artery without angina pectoris; I12.9 Hypertensive chronic kidney disease with stage 1 through stage 4 chronic kidney disease, or unspecified chronic kidney disease; N18.30 Chronic kidney disease, stage 3 unspecified; I27.20 Pulmonary hypertension, unspecified; M19.90 Unspecified osteoarthritis, unspecified site; M81.0 Age-related osteoporosis without current pathological fracture; J98.3 Compensatory emphysema; E78.5 Hyperlipidemia, unspecified; E03.9 Hypothyroidism, unspecified; F17.200 Nicotine dependence, unspecified, uncomplicated; Z79.01 Long term (current) use of anticoagulants; Z79.899 Other long term (current) drug therapy; Z20.822 Contact with and (suspected) exposure to COVID-19
CPT/HCPCS: 00120; 69714; 87426; C9803; J7120; J2405

== ENCOUNTER → 2020-12-15 11:45 | Outpatient (CLI) | payer MEDICARE, SELFPAY ==
--- NOTE | 2020-12-15 11:48 | BI_ITS ---
MAMMOGRAPHY - BILATERAL SCREENING REASON FOR EXAM: Female, 80 years old. Routine annual screening examination. PERTINENT HISTORY: Non-contributory. TECHNIQUE: Digital bilateral breast kristie (3D mammographic acquisition) in the CC and MLO projections. 2-D mediolateral oblique (MLO) and craniocaudad (CC) views of both breasts were obtained. CAD: Full Field Digital Mammography with Computer Added Detection was performed. COMPARISON: Comparison is made with prior study dated 03/16/2019 and 10/29/2017. FINDINGS: Breast Composition: The breasts are heterogeneously dense, which may obscure small masses. There are no dominant masses or suspicious calcifications. No other significant abnormalities are identified. There has been no significant change since the prior study. BI/SCRN MAMM (CAD)W/KRISTIE BILAT IMPRESSION: Stable bilateral screening mammogram. Yearly follow-up mammogram recommended. (A) ASSESSMENT CATEGORY: BIRADS Category 1: Negative. A letter regarding these results will be sent to the patient by the facility within 30 days. Approximately 10% of breast cancers are not detected by mammography. A normal mammogram should not delay biopsy of a clinically suspicious abnormality. [id number] Electronically Signed: Jose Chan MD at 12:56 EDT , Service support ,
== END ==
PROVIDERS: PCP Internal Medicine; Referring Provider Internal Medicine; Visit Provider Internal Medicine
DX: Z12.31 Encounter for screening mammogram for malignant neoplasm of breast (principal)
CPT/HCPCS: 77063; 77067

== ENCOUNTER → 2022-01-25 | Outpatient (CLI) | payer MEDICARE, SELFPAY ==
--- NOTE | 2022-01-25 12:25 | BI_ITS ---
MAMMOGRAPHY - BILATERAL SCREENING REASON FOR EXAM: Female, 81 years old. Routine annual screening examination. PERTINENT HISTORY: Non-contributory. TECHNIQUE: Digital bilateral breast kristie (3D mammographic acquisition) in the CC and MLO projections. 2-D mediolateral oblique (MLO) and craniocaudad (CC) views of both breasts were obtained. CAD: Full Field Digital Mammography with Computer Added Detection was performed. COMPARISON: Comparison is made with prior study dated 12/15/2020 and 03/16/2019. FINDINGS: Breast Composition: The breasts are heterogeneously dense, which may obscure small masses. There are no dominant masses or suspicious calcifications. No other significant abnormalities are identified. There has been no significant change since the prior study. BI/SCRN MAMM (CAD)W/KRISTIE BILAT IMPRESSION: Stable bilateral screening mammogram. Yearly follow-up mammogram recommended. (A) ASSESSMENT CATEGORY: BIRADS Category 1: Negative. A letter regarding these results will be sent to the patient by the facility within 30 days. Approximately 10% of breast cancers are not detected by mammography. A normal mammogram should not delay biopsy of a clinically suspicious abnormality. [id number] Electronically Signed: Jose Chan MD at 14:01 EST ,
--- NOTE | 2022-01-25 12:27 | BD_ITS ---
STUDY: DUAL ENERGY X-RAY ABSORPTIOMETRY / DXA REASON FOR EXAM: Female, 81 years old. M810 TECHNIQUE: Bone Mineral Density (BMD) measurements of lumbar spine and bilateral hips were obtained. COMPARISON: Comparison is made with prior study 11/03/2019. FINDINGS: Lumbar Spine (L1-L4): g/cm2 (0.634) / T-score (-3.8) / Z-score (-0.9) Findings are suggestive of osteoporosis with a high fracture risk. Left Femur Total: g/cm2 (0.518) / T-score (-3.5) / Z-score (-1.2) Left Femoral Neck: g/cm2 (0.500) / T-score (-3.1) / Z-score (-0.7) Right Femur Total: g/cm2 (0.480) / T-score (-3.8) / Z-score (-1.5) Right Femoral Neck: g/cm2 (0.447) / T-score (-3.6) / Z-score (-1.2) The T-Scores on the most recent prior examination were: Lumbar Spine (L1-L4): There has been worsening of bone density since the previous examination. Left Femur Total: which represents a worsening of 12.8%. Right Femur Total: which represents a worsening of 7.9%. BD/Dexa Bone Density Study IMPRESSION: The patient is considered osteoporotic as outlined below according to World [place] Organization (WHO) criteria with a high fracture risk. There has been worsening of bone density since the previous examination. Reference Information: The T-score is the number of standard deviations above or below the standard which is normal for young adults at their peak bone mineral density. The World Health Organization (WHO) interprets the T-scores as follows: Above -1 Normal bone density Between -1 and -2.5 Osteopenia Equal to / or below -2.5 Osteoporosis As a practical clinical guideline, osteopenia may be graded as follows: Mild -1 through -1.5 Moderate -1.6 through -2.0 Severe -2.1 through -2.4 The Z-score is the number of standard deviations above or below age-matched controls. A Z-score of less than -1.5 would be considered abnormal. References: 1. NIH Osteoporosis and Related Bone Diseases www osteo.org 2. International Society for Clinical Densitometry www iscd.org 3. National Osteoporosis Foundation www nof.org Electronically Signed: Jose Chan MD at 13:48 EST ,
== END | disposition home or self-care (01) ==
LOC: OPBD 12:21
PROVIDERS: PCP Internal Medicine; Visit Provider Internal Medicine
DX: Z12.31 Encounter for screening mammogram for malignant neoplasm of breast (principal); M81.0 Age-related osteoporosis without current pathological fracture
CPT/HCPCS: 77063; 77067; 77080

== ENCOUNTER → 2022-11-23 | Outpatient (CLI) | payer MEDICARE, SELFPAY ==
--- NOTE | 2022-11-23 12:48 | ECHOD_ITS ---
Reason For Study: RHEUMATIC DISORDERS OF MV& AV Procedure This was a 2D Doppler, Color Flow transthoracic echocardiogram. Exam performed in department. Left Ventricle Normal LV size. Left ventricular systolic function is normal. The estimated ejection fraction is 55 %. Stage 1 diastolic dysfunction. No regional wall motion abnormalities noted. Right Ventricle Normal RV size. Normal systolic function. Atria Normal left atrium. Normal right atrium. Mitral Valve Normal mitral valve. Mild (1+) eccentric mitral valve insufficiency. Tricuspid Valve Normal tricuspid valve. Mild (1+) tricuspid valve insufficiency. Pulmonary artery systolic pressure is 38 mmHg. Aortic Valve Trisinus/trileaflet aortic valve. Mild (1+) aortic valve insufficiency. Great Vessels Normal aortic root. The pulmonary artery is normal size. Normal inferior vena cava. Pericardium/Pleural No pericardial effusion. MMode/2D Measurements & Calculations LVIDd: 3.9 cm IVSd: 0.92 cm LAV(MOD-bp): 44.8 ml LVIDs: 2.8 cm LVPWd: 1.0 cm LAV(MOD-bp) Indexed: 29.5 ml/m2 RVDd: 3.6 cm FS: 28.7 % LAV(MOD-sp2): 30.1 ml LAV(MOD-sp4): 62.7 ml LVAd ap4: 20.0 cm2 LVAd ap2: 22.3 cm2 SV(MOD-sp4): 29.7 ml LVLd ap4: 5.9 cm LVLd ap2: 6.6 cm EDV(MOD-sp4): 55.9 ml EDV(MOD-sp2): 66.0 ml EDV(sp4-el): 57.5 ml EDV(sp2-el): 64.2 ml LVAs ap4: 12.3 cm2 LVAs ap2: 14.3 cm2 LVLs ap4: 4.9 cm LVLs ap2: 5.5 cm ESV(MOD-sp4): 26.2 ml ESV(MOD-sp2): 30.1 ml ESV(sp4-el): 26.3 ml ESV(sp2-el): 31.5 ml EF(MOD-sp4): 53.1 % EF(MOD-sp2): 54.4 % EF(sp4-el): 54.3 % SV(MOD-sp2): 36.0 ml SV(sp4-el): 31.2 ml LA A4 area: 19.4 cm2 LA dimension(2D): 3.4 cm RA A4 area: 14.5 cm2 TAPSE: 2.6 cm Time Measurements MV dec time: 0.31 sec Doppler Measurements & Calculations MV E max nayan: 43.8 cm/sec Lat Peak E' Nayan: 5.0 cm/sec Med Peak E' Nayan: 5.2 cm/sec MV A max nayan: 65.0 cm/sec E/E' lat: 8.7 E/E' med: 8.4 MV E/A: 0.67 MV V2 max: 85.4 cm/sec MV dec slope: 142.8 cm/sec2 Ao V2 max: 135.0 cm/sec MV max P.9 mmHg Ao max P.3 mmHg MV V2 mean: 51.9 cm/sec Ao V2 mean: 91.6 cm/sec MV mean P.2 mmHg Ao mean P.8 mmHg MV V2 VTI: 32.2 cm Ao V2 VTI: 35.5 cm AV (velocity ratio): 0.63 AI max nayan: 371.3 cm/sec LV V1 max: 79.6 cm/sec PA V2 max: 87.1 cm/sec AI max P.1 mmHg LV V1 max P.5 mmHg PA V2 mean: 56.8 cm/sec AI dec slope: 114.6 cm/sec2 LV V1 mean P.4 mmHg AI P1/2t: 948.9 msec LV V1 mean: 56.3 cm/sec LV V1 VTI: 22.4 cm TR max nayan: 293.7 cm/sec TR max P.5 mmHg ECHO/Echo Complete Interpretation Summary Normal LV size. Left ventricular systolic function is normal. The estimated ejection fraction is 55 %. Stage 1 diastolic dysfunction. Pulmonary artery systolic pressure is 38 mmHg. Mild (1+) eccentric mitral valve insufficiency. Mild (1+) aortic valve insufficiency. Ordering Physician: Viviana Murray Referring Physician: Viviana Murray Performed By: Sravanthi Benites RCS
== END | disposition home or self-care (01) ==
LOC: CVS 12:45
PROVIDERS: PCP Internal Medicine; Referring Provider Internal Medicine; Visit Provider Internal Medicine
DX: I08.0 Rheumatic disorders of both mitral and aortic valves (principal)
CPT/HCPCS: 93306

== ENCOUNTER 2023-11-11 21:14 | Emergency (ER) | payer MEDICARE, SELFPAY ==
[2023-11-11 21:14] VITALS: BP 204/101; PULSE 65; RESP 18; TEMP 36.8; O2SAT 99; BMI 17.7
[2023-11-11 22:53] LABS: Absolute Lymphocyte Count 2.28 X10^3/uL (0.83-4.51); Absolute Neutrophil Count 3.7 X10^3/uL (2.0-7.7); Basophil# 0.06 X10^3/uL; Basophil% 0.9 % (0-1); Eosinophil# 0.29 X10^3/uL; Eosinophils% 4.2 % (0-5); Hematocrit 39.9 % (37-47); Hemoglobin 12.7 g/dL (12.0-15.0); Lymphocyte # 2.28 X10^3/ul (0.83-4.51); Lymphocyte % 32.8 % (19-41); Mean Corp Hgb Conc 31.8 g/dL (32-36); Mean Corpuscular Hgb 31.1 pg (27.0-32.0); Mean Corpuscular Volume 97.8 fL (81-99); Mean Platelet Vol. 11.2 fl (6.2-12.0); Monocyte# 0.56 X10^3/uL; Monocyte% 8.1 % (0-10); NRBC Flagged by Analyzer 0 % (0-5); Neutrophil # 3.73 X10^3/uL (2.7-7.7); Neutrophil % 53.6 % (47-70); Platelet Count 197 K/mm3 (150-450); RBC Distribution Width CV 15.3 % (11.6-14.6); RBC Distribution Width SD 55.1 fl (35.1-43.9); Red Blood Count 4.08 M/mm3 (4.2-5.4)
[2023-11-11] MEDS: 0.9% Normal Saline (1000mL) 1,000 ML 999 ML IV (22:53)
[2023-11-11 23:07] LABS: Anion Gap 7 (5-15); BUN 42 mg/dL (7-18); BUN/Creat Ratio 16.7 RATIO (10-20); Calcium,Total 8.9 mg/dL (8.5-10.1); Chloride 103 mmol/L (98-107); Creatinine, Serum 2.51 mg/dL (0.55-1.02); EST Glomerular Filtration Rate 19 mL/min (>60); Est Glom Filt Rate - Afr Amer 23 mL/min (>60); Estimated Creatinine Clearance 12.53 ml/min; Glucose 79 mg/dL (74-106); Potassium 4.7 mmol/L (3.5-5.1); Sodium Level 138 mmol/L (136-145)
[2023-11-11 23:14] VITALS: BP 163/75; PULSE 78; RESP 16; O2SAT 99
[2023-11-12] MEDS: 0.9% Normal Saline (1000mL) 1,000 ML 999 ML IV (00:04)
[2023-11-12 01:00] VITALS: BP 183/74; PULSE 55; RESP 16; O2SAT 95
[2023-11-12 02:00] VITALS: BP 166/80; PULSE 59; RESP 16; TEMP 36.6; O2SAT 95
--- NOTE | 2023-11-12 02:06 | EX.ED.DYSGE1 ---
HPI History of Present Illness Chief Complaint: Abn Labs Informant: patient and family Narrative Narrative: Patient is an 83-year-old female with past medical history of hypertension hyperlipidemia and Crohn's disease. She has been following with her family doctor and outpatient lab work has been showing elevation to her kidney function. There is concern that this is secondary to over a 1 year course of Augmentin as well as dehydration. The patient was at the doctor's office today and they attempted an IV but were having difficulty as it was felt she would benefit from IV fluid. Therefore she was advised to come to the hospital secondary to this. Patient states that this morning she was feeling unsteady and lightheaded but reports that those symptoms have since resolved. [facility] Medical History Wears glasses Wears dentures Arthritis History of renal disease DVT (deep venous thrombosis) Easy bruising Excessive bleeding Back pain History of Crohn's disease Smoker History of echocardiogram History of stress test Vitamin B12 deficiency Hypothyroidism Hyperlipidemia Anxiety Unspecified hearing loss, bilateral Benign essential HTN Coronary artery disease Pulmonary hypertension, mild Emphysema, compensatory Chronic kidney disease, stage 3 Vaginal fistula DDD (degenerative disc disease) Osteoarthritis, chronic Osteoporosis Age-related cognitive decline Chronic anticoagulation History of DVT (deep vein thrombosis) Home Medications ?Medication ?Instructions ?Recorded ?Last Taken ?Type apixaban 2.5 mg tablet 2.5 mg PO BID 09/23/15 10/14/20 History cyanocobalamin (vitamin B-12) 500 mcg IM QMONTH 09/23/15 Unknown History 1,000 mcg/mL injection solution losartan 25 mg tablet 25 mg PO DAILY 12/01/19 10/14/20 History oxycodone-acetaminophen 10 mg-325 1 tab PO Q6H PRN Pain 12/01/19 Unknown History mg tablet (Percocet) acetaminophen 500 mg tablet 500 mg PO Q4H PRN PRN Pain Score 10/14/20 Unknown Rx 1-5/10 #0 tabs atenolol 25 mg tablet 25 mg PO Q24H 11/12/23 Unknown History ergocalciferol (vitamin D2) 1,250 1,250 mcg PO QWEEK 11/12/23 Unknown History mcg (50,000 unit) capsule ibandronate 150 mg tablet 150 mg PO QMONTH 11/12/23 Unknown History levothyroxine 137 mcg tablet 137 mcg PO DAILY hypothyroidism 11/12/23 Unknown History Allergy/AdvReac Type Severity Reaction Status Date / Time tramadol (From Ultram) Allergy Severe Agitation, Verified 11/11/23 21:15 Restlessnes, Anxiety amoxicillin (From Augmentin) AdvReac Severe Other Verified 11/11/23 21:15 clavulanic acid (From AdvReac Severe Other Verified 11/11/23 21:15 Augmentin) Surgical History History of colonoscopy History of ileostomy Hx of cholecystectomy History of hysteroscopy Social History Smoking Status: Current every day smoker tobacco type: cigarettes substance use type: does not use caffeine: Yes Type: coffee ROS ROS ED Constitutional Constitutional ED: Denies chills or fever(s) Eyes Eyes: Denies change in vision ENT ENT ED: Denies sore throat Cardiovascular Cardiovascular: Denies chest pain, palpitations or racing heartbeat Respiratory/Chest Respiratory/Chest: Denies cough or dyspnea Gastrointestinal Gastrointestinal: Denies abdominal pain, diarrhea, nausea or vomiting Genitourinary Genitourinary ED: Denies dysuria or urinary frequency Musculoskeletal Musculoskeletal: Denies myalgias Integumentary Denies rash Neurologic Neurologic: Denies headache(s) Hematologic/Lymphatic Hematologic/Lymphatic: Denies easy bleeding or easy bruising EXAM Physical Exam Const Vital Signs: 11/11/23 21:14 11/11/23 22:07 11/11/23 23:14 Temperature 98.2 F Temperature Source Oral Pulse Rate 65 78 Respiratory Rate 18 16 Respiratory Effort Normal Non-Labored Respiratory Pattern Normal Blood Pressure 204/101 H 163/75 H Blood Pressure Mean 135 104 Pulse Ox 99 99 Oxygen Delivery Method Room Air Room Air 11/12/23 01:00 Temperature Temperature Source Pulse Rate 55 L Respiratory Rate 16 Respiratory Effort Respiratory Pattern Blood Pressure 183/74 H Blood Pressure Mean 110 Pulse Ox 95 Oxygen Delivery Method Room Air Positive well nourished and well developed General Appearance ED: well developed; Negative for pallor HEENT Reports dry mucous membranes HEENT Narrative: Mucous membranes are dry and tacky No tongue or lip swelling no oral lesions no airway edema or compromise No secondary findings in the posterior pharynx to suggest infection Mouth ED: Yes dry mucous membranes Mouth: dry mucous membranes Eyes PERRL and EOMs intact bilaterally General Eye ED: Negative for pale conjunctiva or scleral icterus Neck supple and no JVD Resp normal respiratory effort and clear to auscultation bilaterally Cardio regular rate and regular rhythm Rate: other Other Details: Radial and carotid pulses are equal and symmetric GI normal to inspection, nondistended, normoactive bowel sounds, non-tender, non-distended and no masses GI Narrative: No voluntary guarding or rigidity or pulsatile mass Auscultation: normoactive bowel sounds Palpation: soft Extremity normal to inspection Neuro oriented x3, CN's II-XII intact bilaterally and no sensory deficits noted Sensorium / Orientation: alert Motor Exam: strength 5/5 throughout Psych mental status grossly normal Skin no rashes or lesions noted and No skin turgor normal Skin Narrative: Skin turgor is increased General Skin Exam: Negative for jaundice or pallor MDM MDM MDM Narrative Medical decision making narrative: Patient arrived to the ER hypertensive but has a past medical history of this. Physical exam is showing findings consistent with dehydration. In order to ensure that the abnormal kidney function values were not lab error repeat blood work was obtained. There is also concern that if the kidneys are showing signs of acute injury that she could also have acute changes to her electrolytes. Basic blood work was obtained and shows a creatinine of 2.5 and chart review reveals that the value has been slowly increasing from normal. However she does not have any clinically significant electrolyte abnormalities. I discussed with the patient and family that based on her AKILA and history and exam that is most likely from her prolonged antibiotic use and dehydration and therefore she would benefit from 2 L of IV fluid. This was ordered and provided to the patient. We discussed potential admission secondary to her elevated kidney function. However as she does not have electrolyte abnormalities associated with this and states that overall she is feeling much better after hydration she would like to go home. As the elevation has been gradual and is only mild in nature and she reports feeling better after 2 L of IV fluid replacement I will comply with her wishes and discharge her home. She was strongly advised to continue oral hydration at home and to have her laboratory studies rechecked over the next few days to ensure that the kidney function is improving and her electrolytes remained stable. Patient and family agreed to the plan of care and she is otherwise safe for discharge History & Record Review Discussion w/independent historian: Patient and Family Lab Data Attestation: I reviewed the patient's lab results. Labs: Laboratory Results - last 24 hr 11/11/23 21:42 WBC 7.0 RBC 4.08 L Hgb 12.7 Hct 39.9 MCV 97.8 MCH 31.1 MCHC 31.8 L RDW Std Deviation 55.1 H RDW Coeff of Jennifer 15.3 H Plt Count 197 MPV 11.2 Immature Gran % (Auto) 0.400 Neut % (Auto) 53.6 Lymph % (Auto) 32.8 [place] % (Auto) 8.1 Eos % (Auto) 4.2 Baso % (Auto) 0.9 Absolute Neuts (auto) 3.7 Absolute Lymphs (auto) 2.28 Nucleated RBC % 0 Sodium 138 Potassium 4.7 Chloride 103 Carbon Dioxide 28.0 Anion Gap 7 BUN 42 H Creatinine 2.51 H Estim Creat Clear Calc 12.53 Est GFR (MDRD) Af Amer 23 L Est GFR (MDRD) Non-Af 19 L BUN/Creatinine Ratio 16.7 Glucose 79 Calcium 8.9 Magnesium 2.0 Discharge Plan Triage Chief Complaint: Abn Labs ED Provider: Harshil Jefferson Dx/Rx/DC Orders Clinical Impression: Dehydration, AKILA (acute kidney injury), HTN (hypertension), Crohns disease Instructions: Acute Kidney Failure Dc, ED Dehydration (Adult) Prescriptions: No Action oxycodone-acetaminophen [Percocet] 10-325 mg tablet 1 tab PO Q6H PRN (Reason: Pain) Patient Comments: takes half tablet losartan 25 mg tablet 25 mg PO DAILY cyanocobalamin (vitamin B-12) 1,000 MCG/ML solution 500 mcg IM QMONTH apixaban 2.5 MG tablet 2.5 mg PO BID Patient Comments: BLOOD THINNER acetaminophen 500 mg Tablet 500 mg PO Q4H PRN PRN (Reason: Pain Score 1-5/10) Qty: 0 0RF levothyroxine 137 mcg tablet 137 mcg PO DAILY atenolol 25 mg tablet 25 mg PO Q24H ergocalciferol (vitamin D2) 1,250 mcg (50,000 unit) capsule 1,250 mcg PO QWEEK ibandronate 150 mg tablet 150 mg PO QMONTH Primary Care Provider: Viviana Murray Referrals: Viviana Murray MD [Primary Care Provider] - Activity Restrictions/Additional Instructions: Please continue to keep yourself well-hydrated at home. Continue all of your other medications as directed by your family doctor. Have repeat laboratory studies obtained over the next few days to ensure that your electrolytes and kidney function are improving. If you have any further concerns or worsening of symptoms please return to the hospital for repeat evaluation Print Language: [place] Disposition Disposition: Home, Self Care
[2023-11-12 13:25] LABS: Troponin-I HS 18 pg/mL (3.0-54.0)
== END 2023-11-12 02:35 | disposition home or self-care (01) ==
PROVIDERS: Emergency Provider Emergency Medicine; PCP Internal Medicine; Visit Provider Emergency Medicine
DX: E86.0 Dehydration (principal); K50.90 Crohn's disease, unspecified, without complications; N18.30 Chronic kidney disease, stage 3 unspecified; N17.9 Acute kidney failure, unspecified; I12.9 Hypertensive chronic kidney disease with stage 1 through stage 4 chronic kidney disease, or unspecified chronic kidney disease; E78.5 Hyperlipidemia, unspecified; I25.10 Atherosclerotic heart disease of native coronary artery without angina pectoris; F17.210 Nicotine dependence, cigarettes, uncomplicated; Z79.01 Long term (current) use of anticoagulants; Z79.899 Other long term (current) drug therapy
CPT/HCPCS: 80048; 83735; 84484; 85025; 96360; 96361; 99283; J7030; A4216

== ENCOUNTER → 2023-11-11 | Outpatient (CLI) | payer MEDICARE, SELFPAY ==
[2023-11-11 16:05] LABS: Absolute Lymphocyte Count 1.77 X10^3/uL (0.83-4.51); Absolute Neutrophil Count 3.7 X10^3/uL (2.0-7.7); Basophil# 0.07 X10^3/uL; Basophil% 1.1 % (0-1); Eosinophil# 0.21 X10^3/uL; Eosinophils% 3.4 % (0-5); Hematocrit 40.9 % (37-47); Hemoglobin 12.7 g/dL (12.0-15.0); Lymphocyte # 1.77 X10^3/ul (0.83-4.51); Lymphocyte % 28.3 % (19-41); Mean Corp Hgb Conc 31.1 g/dL (32-36); Mean Corpuscular Volume 99.8 fL (81-99); Monocyte# 0.54 X10^3/uL; Monocyte% 8.6 % (0-10); NRBC Flagged by Analyzer 0 % (0-5); Neutrophil # 3.65 X10^3/uL (2.7-7.7); Neutrophil % 58.3 % (47-70); Platelet Count 186 K/mm3 (150-450); RBC Distribution Width CV 15.3 % (11.6-14.6); RBC Distribution Width SD 56.8 fl (35.1-43.9); White Blood Count 6.3 K/mm3 (4.4-11.0)
[2023-11-11 16:14] LABS: ALB/GLOB Ratio 0.9 RATIO (0.9-2.4); AST(SGOT) 34 U/L (15-37); Alanine Aminotransfer ALT/SGPT 37 U/L (13-56); Albumin, Serum 3.1 g/dL (3.2-5.0); Alkaline Phosphatase 122 U/L (45-117); Anion Gap 10 (5-15); BUN 39 mg/dL (7-18); BUN/Creat Ratio 16.7 RATIO (10-20); Calcium,Total 8.8 mg/dL (8.5-10.1); Chloride 105 mmol/L (98-107); Creatinine, Serum 2.34 mg/dL (0.55-1.02); EST Glomerular Filtration Rate 21 mL/min (>60); Est Glom Filt Rate - Afr Amer 25 mL/min (>60); Globulin 3.4 g/dL (2.2-4.2); Glucose 102 mg/dL (74-106); Protein, Total 6.5 g/dL (6.4-8.2); Sodium Level 140 mmol/L (136-145)
== END | disposition home or self-care (01) ==
LOC: LABSPEC 15:47
PROVIDERS: PCP Internal Medicine; Referring Provider Internal Medicine; Visit Provider Internal Medicine
DX: R06.02 Shortness of breath (principal)
CPT/HCPCS: 80053; 85025

== ENCOUNTER → 2024-01-16 | Outpatient (CLI) | payer MEDICARE, SELFPAY ==
--- NOTE | 2024-01-16 15:26 | STRESSREP ---
Stress Test Report Pharmacologic myocardial perfusion stress test. 83-year-old lady with a history of abnormal EKG Resting EKG demonstrates sinus rhythm with a rate of 63 bpm. Resting blood pressure is 152/84 mmHg. 0.4 mg of regadenoson was infused per usual protocol followed by rapid intravenous saline flush injection. Continuous EKG monitoring was performed. The maximum heart rate was 71 bpm which was 52% of max impacted heart rate the maximum workload was 1 metabolic equivalent. At rest there were no ST or T wave changes noted to suggest ischemia and at peak infusion nonspecific ST changes were noted which did not meet the criteria for ischemia. No clinical angina is noted. The final blood pressure was 150/80 mmHg. Myocardial perfusion protocol. 10.1 mCi of technetium 99m sestamibi was injected at rest. 0.4 mg of regadenoson was infused per usual protocol. At peak infusion 32 mCi of technetium 99m sestamibi was injected stress images were obtained stress and rest images were reconstructed and compared in the short axis vertical long and horizontal long axis. Gated images were also obtained. Perfusion SPECT analysis: Review of the stress images demonstrate normal uptake of tracer noted in all areas of the myocardium. The resting images similar demonstrated normal uptake of tracer noted in all areas of the myocardium. No areas of reversibility are noted to suggest ischemia and no previous infarct is noted. Gated SPECT analysis: The gated ejection fraction is 79%. Conclusion: Normal pharmacologic myocardial perfusion stress test. Preserved ejection fraction.
== END | disposition home or self-care (01) ==
LOC: CVS 06:53
PROVIDERS: PCP Internal Medicine; Referring Provider Internal Medicine; Visit Provider Internal Medicine
DX: R06.09 Other forms of dyspnea (principal)
CPT/HCPCS: 78452; 93017; A9500; A4216; J2785

== ENCOUNTER → 2024-02-08 | Outpatient (CLI) | payer MEDICARE, SELFPAY ==
--- NOTE | 2024-02-08 11:12 | US_ITS ---
EXAM: US RETROPERITONEAL LIMITED, RENAL CLINICAL INDICATION: acute on chronic renal insufficiency TECHNIQUE: Limited grayscale and color Doppler sonographic evaluation of the retroperitoneum was performed. COMPARISON: CT abdomen and pelvis, 02/10/2018 FINDINGS: RIGHT KIDNEY: Cortical thinning and atrophy of the right kidney with a length of 7.5 cm. There are multiple right renal cysts, the largest measuring 1.4 cm. No shadowing calculus. No perinephric collection is demonstrated. LEFT KIDNEY: Cortical thinning of the left kidney with a length of 9 cm. There are multiple left renal cysts, the largest measuring 2.1 cm. No shadowing calculus. No perinephric collection is demonstrated. BLADDER: Ureteral jets are not visualized. No urinary bladder wall thickening. US/Kidney and Bladder IMPRESSION: Multiple bilateral renal cysts for which no follow-up is indicated. Bilateral renal cortical thinning/atrophy. Electronically Signed: Thien Arriola DO at 14:02 EST ,
== END | disposition home or self-care (01) ==
PROVIDERS: PCP Internal Medicine; Referring Provider Internal Medicine; Visit Provider Internal Medicine
DX: N18.9 Chronic kidney disease, unspecified (principal)
CPT/HCPCS: 76770